=== PATIENT | male | born 1945 | race Caucasian/White ===

== ENCOUNTER 2018-07-01 22:43 | Emergency (ER) | payer OTHER, BC ==
--- OUTSIDE RECORDS SUMMARY | 2018-07-01 22:45 | XMS REPORT ---
:1945 [facility] Address [address] [place] [address] Dr. Clements [address] [place] [id number] Care Team Providers Name Role Phone EDILBERTO HUGGINS Unavailable Unavailable Problems This patient has no known problems. Allergies, Adverse Reactions, Alerts This patient has no known allergies or adverse reactions. Medications This patient has no known medications. Results Test Description Test Time Test Comments Text Results Atomic Results Result Comments NEEDLE EMG, 2 2018-01-18 INTRAOPERATIVE MONITORING REPORT EXTREMITY 16:14:00 Patient Name: Toro Rodriguez [facility] Surgery Date: 01/15/18 [place] Pro: [id number] Monitoring began at 11:40 a.m and ended at 2:00p.m. Surgeon: Edilberto Huggins M.D. Examining Physician : Sonido Milan M.D. Monitoring Technologist: SOL Gonzales Procedure: Laminectomy and Placement of Spinal Cord Stimulator Stimulation Parameters: Ulnar nerves individually stimulated at the wristRate 4.7Hz, Intensity 35mA, Duration 0.3msPosterior Tibial nerves individually stimulated at the ankleRate 4.7Hz, Intensity 70mA, Duration 0.3msFilters 30-500Hz, Notch Off Recording Parameters: CV, CP3, CP4, CPz, and FPzTcMEPs of bilateral APB-ADM and Tibialis Anterior, Adductor Hallicus muscle groupsFree running EMG of the External Obliques (T7-T12, Vastus Lateralis (L2-L4), Tibialis Anterior L4-L5, LateralGastroc (L5-S2), Abductor Hallicus (S1-S2) muscle groupsFree-running EEG recorded with bipolar derivation, using modified International 10/20 placements: C3-FPZ,C4-FPZ Description : Intraoperative neurophysiological monitoring was performed using a combination of upperand lower extremity somatosensory evoked potentials, TcMEPs, and Free-running EMG and EEGs. Areal-time connection with the examining neurologist was established and maintained throughout theoperative procedure by the monitoring technologist. Upper extremity somatosensory evoked potentialswere recorded centrally at the cervical and corticals following ulnar nerve stimulation. Lower extremitysomatosensory evoked potentials were recorded centrally at the cervical and cortical levels followingposterior tibial nerve stimulation at the ankle. Ssep baselines were established and monitored throughoutthe duration of the procedure. At closing, responses were judged to be essentially unchanged from thoseof post-positioning baselines. TcMEP responses were obtained post-positioning and Upper extremities andlower extremities were present at baseline. TcMEP responses were present in all extremities for theremainder of the case and at closing, surgeon aware. Free-running EMG was quiet throughout and EEGremained symmetrical throughout the procedure with no focal changes noted to occur. Conclusion : These results suggest the absence of untoward, secondary effects on anterior and posteriorcolumn function as a consequence of this surgical procedure. Sonido Milan M.D., FACNS, FAAN, FAESG89.4, M54.16 [facility] IN 2018-01-15 Reason for FINAL REPORT OR/30 MINUTE 14:19:00 exam:->Implant Fluoroscopy 1 view intraoperative INCREMENTS spinal cord 01/15/2018 2:13 PM CLINICAL HISTORY: stimulator, Instrument localization COMPARISON: thoracic None available IMPRESSION: Please laminectomy correlate imaging report findings with the procedure note prepared by Dr. Huggins, as an intra-procedure imaging consultation was not requested. Reported fluoroscopy time: 29.9 seconds. Signed: John Ortiz MDReport Verified Date/Time: 01/15/2018 14:19:13 Reading Location: [address] Consult Reading Room -1 ANTIGEN WITH HIV-1/2 ANTIBODY 2018-01-11 09:49:00 Test Item Value Reference Range Comments HIV-1 ANTIGEN WITH HIV 1\T\2 ANTIBODY (2) (BEAKER) (test Nonreactive Nonreactive ddjy=5501) [id number] 09:32:00 Test Item Value Reference Range Comments GLUCOSE RANDOM (BEAKER) (test yuhz=367) 126 mg/dL 70-105 BASIC METABOLIC [id number] 09:32:00 Test Item Value Reference Range Comments SODIUM (BEAKER) (test 142 meq/L 136-145 skql=312) POTASSIUM (BEAKER) (test 4.1 meq/L 3.5-5.1 bsvn=056) CHLORIDE (BEAKER) (test 106 meq/L 98-107 uktg=933) CO2 (BEAKER) (test 28 meq/L 22-29 rxxn=367) BLOOD UREA NITROGEN 21 mg/dL 7-21 (BEAKER) (test xeyk=903) CREATININE (BEAKER) (test 1.06 mg/dL 0.57-1.25 gbls=457) GLUCOSE RANDOM (BEAKER) 126 mg/dL 70-105 (test mnwy=930) CALCIUM (BEAKER) (test 9.5 mg/dL 8.4-10.2 leeu=384) EGFR (BEAKER) (test 68 mL/min/1.73 sq m ESTIMATED GFR IS NOT iops=3279) ACCURATE CREATININE CLEARANCE IN PREDICTING GLOMERULAR FILTRATION RATE. ESTIMATED GFR IS NOT APPLICABLE FOR DIALYSIS PATIENTS. PROTHROMBIN TIME/[id number] 09:29:00 Test Item Value Reference Range Comments PROTIME (BEAKER) (test mrbm=414) 13.8 seconds 11.7-14.7 INR (BEAKER) (test otzm=745) 1.1 <=5.9 RECOMMENDED COUMADIN/WARFARIN INR THERAPY RANGESSTANDARD DOSE: 2.0 - 3.0 Includes: PROPHYLAXIS forvenous thrombosis, systemic embolization; TREATMENT for venous thrombosis and/or pulmonary embolus.HIGH RISK: Target INR is 2.5-3.5 for patients with mechanical heart valves.CBC W/PLT COUNT & AUTO [id number] 09:19:00 Test Item Value Reference Range Comments WHITE BLOOD CELL COUNT (BEAKER) (test kdqu=609) 10.1 K/ L 3.5-10.5 RED BLOOD CELL COUNT (BEAKER) (test vtwj=191) 4.87 M/ L 4.63-6.08 HEMOGLOBIN (BEAKER) (test tbdb=961) 14.6 GM/DL 13.7-17.5 HEMATOCRIT (BEAKER) (test yjob=169) 46.1 % 40.1-51.0 MEAN CORPUSCULAR VOLUME (BEAKER) (test khdo=808) 94.7 fL 79.0-92.2 MEAN CORPUSCULAR HEMOGLOBIN (BEAKER) (test 30.0 pg 25.7-32.2 xzik=119) MEAN CORPUSCULAR HEMOGLOBIN CONC (BEAKER) (test 31.7 GM/DL 32.3-36.5 uldu=247) RED CELL DISTRIBUTION WIDTH (BEAKER) (test 12.7 % 11.6-14.4 quky=533) PLATELET COUNT (BEAKER) (test duie=384) 286 K/CU MM 150-450 MEAN PLATELET VOLUME (BEAKER) (test hasf=806) 10.1 fL 9.4-12.4 NUCLEATED RED BLOOD CELLS (BEAKER) (test 0 /100 WBC 0-0 bwsc=174) NEUTROPHILS RELATIVE PERCENT (BEAKER) (test 61 % hrpd=866) LYMPHOCYTES RELATIVE PERCENT (BEAKER) (test 27 % kxjb=783) MONOCYTES RELATIVE PERCENT (BEAKER) (test 9 % oltr=223) EOSINOPHILS RELATIVE PERCENT (BEAKER) (test 3 % gsvz=704) BASOPHILS RELATIVE PERCENT (BEAKER) (test 1 % vfde=456) NEUTROPHILS ABSOLUTE COUNT (BEAKER) (test 6.16 K/ L 1.78-5.38 ugdk=652) LYMPHOCYTES ABSOLUTE COUNT (BEAKER) (test 2.73 K/ L 1.32-3.57 urxx=170) MONOCYTES ABSOLUTE COUNT (BEAKER) (test 0.89 K/ L 0.30-0.82 rrab=264) EOSINOPHILS ABSOLUTE COUNT (BEAKER) (test 0.25 K/ L 0.04-0.54 aujp=303) BASOPHILS ABSOLUTE COUNT (BEAKER) (test 0.07 K/ L 0.01-0.08 typp=500) IMMATURE GRANULOCYTES-RELATIVE PERCENT (BEAKER) 0 % 0-1 (test qzhi=6495)
--- OUTSIDE RECORDS SUMMARY | 2018-07-01 22:45 | XMS REPORT | Continuity of Care Document ---
:1945 Author Organization Interface Problems Problem Status Onset Date Classification Date Comments Source Reported Medications Medication Details Route Status Patient Ordering Order Source Instructions Provider Date Allergies, Adverse Reactions, Alerts Substance Category Reaction Severity Reaction Status Date Comments Source type Reported Immunizations Immunization Date Given Site Status Last Updated Comments Source Results Order Results Value Reference Date Interpretation Comments Source Name Range Vital Signs Vital Sign Value Date Comments Source Encounters Location Location Encounter Encounter Reason Attending ADM DC Status Source Details Type Number For Provider Date Date Visit Outpatient [id number] [place] 06/02 [facility] Outpatient [id number] [place]KA 11/30 [facility] Procedures Procedure Code Date Perfomer Comments Source
--- OUTSIDE RECORDS SUMMARY | 2018-07-01 22:45 | XMS REPORT | Clinical Summary ---
:1945 Author Organization [facility] Address [address] [place] [id number] Phone Care Team Providers Name Role Phone Unavailable Primary Care Provider Unavailable Allergies Active Allergy Reactions Severity Noted Date Comments Adhesive Tape Other (See Comments) 01/08/2018 BLISTERS OK WITH PAPER TAPE Latex Other (See Comments) 01/08/2018 BLISTERS Current Medications Prescription Sig. Disp. Refills Start Date End Date Status fentaNYL (DURAGESIC) 100 Place 1 patch onto Active mcg/hr patch the skin every third day. fentaNYL (DURAGESIC) 25 Place 1 patch onto Active mcg/hr patch the skin every third day. gabapentin (NEURONTIN) Take 600 mg by Active 600 MG tablet mouth nightly . metoprolol (TOPROL-XL) 25 Take 25 mg by mouth Active MG 24 hr tablet nightly . atorvastatin (LIPITOR) 20 Take 20 mg by mouth Active MG tablet nightly . amLODIPine (NORVASC) 10 Take 10 mg by mouth Active MG tablet nightly . omeprazole (PRILOSEC) 40 Take 40 mg by mouth Active MG capsule nightly . aspirin 81 MG EC tablet Take 81 mg by mouth Active nightly . Active Problems Problem Noted Date Lumbar neuritis 01/15/2018 Essential hypertension 01/15/2018 S/P insertion of spinal cord stimulator 01/15/2018 Resolved Problems Problem Noted Date Resolved Date Chronic pain syndrome 01/15/2018 01/15/2018 Encounters Date Type Specialty Care Team Description 01/15/2018 - Hospital Encounter General Internal Nitin Huggins Chronic pain 01/16/2018 Medicine MD Giovanni syndrome;Essential hypertension;Lumbar neuritis;S/P insertion of spinal cord stimulator 01/15/2018 Procedure Pass 01/15/2018 Surgery Nitin Huggins LAMINECTOMY,INSERTION MD Giovanni NEUROSTIMULATOR ELECTRODES 01/14/2018 Anesthesia Event Laura Gauthier MD 01/11/2018 Hospital Encounter Cardiology Nitin Huggins MD 01/11/2018 Hospital Encounter Pre-Admission Nitin Huggins MD 01/11/2018 Hospital Encounter Pre-Admission Nitin Huggins MD 01/10/2018 Orders Only Nitin Huggins MD 01/08/2018 Hospital Encounter Pre-Admission Testing after 06/30/2017 Social History Tobacco Use Types Packs/Day Years Used Date Former Smoker Quit: 2016 Smokeless Tobacco: Never Used Alcohol Use Drinks/Week oz/Week Comments No Sex Assigned at Date Recorded Not on file Last Filed Vital Signs Vital Sign Reading Time Taken Blood Pressure 121/56 01/16/2018 7:30 AM CDT Pulse 63 01/16/2018 7:30 AM CDT Temperature 36.2 C (97.1 F) 01/16/2018 7:30 AM CDT Respiratory Rate 17 01/16/2018 7:30 AM CDT Oxygen Saturation 97% 01/16/2018 7:30 AM CDT Inhaled Oxygen Concentration - - Weight 75 kg (165 lb 6.4 oz) 01/15/2018 6:58 AM CDT Height 172.7 cm (5' 8") 01/15/2018 6:58 AM CDT Body Mass Index 25.15 01/15/2018 6:58 AM CDT Plan of Treatment Not on file Implants Implanted Type 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 Device Expiration Model / Identifier Date Serial / Lot Replaced By [facility] Full Strlprep 10ml [id number] - [id number] Cement/F N/A: MAHER: BIOSCI 06/02/2019 [id number] / Implanted: Qty: 1 on 01/15/2018 by Nitin Huggins MD iller/Ad Back / hesive [id number] Pump Lead Penta 3mm 60cm [id number] - [id number] Pain N/A: ST JARRETT 11/16/2019 [id number] / Implanted: Qty: 1 on 01/15/2018 by Nitin Huggins MD Mgmt/Sti Back MED: NEUROMODULAT [id number] / mulator ION Stim Neuro Proclaim 7 Elite - [id number] Pain N/A: [facility] JARRETT 11/05/2019 [id number] / Implanted: Qty: 1 on 01/15/2018 by Nitin Huggins MD Mgmt/Sti Back MED: NEUROMODULAT [id number] / mulator ION Procedures Procedure Name Priority Date/Time Associated Diagnosis Comments PROCEDURE W/ 01/15/2018 10:50 AM Chronic pain syndrome INTRAOPERATIVE CDT NEUROMONITORING Special Needs (C-ARM, NEURO- MONITORING: SSEP, NEUROSCOPE, [facility] JARRETT, ELIDA PARTS LISTER) PROCEDURE W/ C-ARM 01/15/2018 10:50 AM CDT Chronic pain syndrome Special Needs (C-ARM, NEURO- MONITORING: SSEP, NEUROSCOPE, [facility] JAR[facility]TT, ELIDA PARTS LISTER) INSERTION,SPINAL CORD 01/15/2018 10:50 AM CDT Chronic pain syndrome NEUROSTIMULATOR Special Needs (C-ARM, NEURO- MONITORING: SSEP, NEUROSCOPE, [facility] JARRETT, ELIDA PARTS LISTER) LAMINECTOMY,INSERTION 01/15/2018 10:50 AM CDT Chronic pain syndrome NEUROSTIMULATOR ELECTRODES Special Needs (C-ARM, NEURO- MONITORING: SSEP, NEUROSCOPE, [facility] JARRETT, ELIDA PARTS LISTER) after 06/30/2017 Results RHYTHM STRIP - SCAN (01/18/2018 1:20 PM)NEEDLE EMG, 2 EXTREMITY (01/15/2018 2: 00 PM) Specimen Performing Laboratory GE RIS Narrative INTRAOPERATIVE MONITORING REPORT Patient Name: Cas Denny [facility] Surgery Date: 01/15/18 [place] Pro: [id number] Monitoring began at 11:40 a.m and ended at 2:00p.m. Surgeon: Nitin Huggins M.D. Examining Physician : Sonido Milan M.D. Monitoring Technologist: SOL Gonzales Procedure: Laminectomy and Placement of Spinal Cord Stimulator Stimulation Parameters: Ulnar nerves individually stimulated at the wrist Rate 4.7Hz, Intensity 35mA, Duration 0.3ms Posterior Tibial nerves individually stimulated at the ankle Rate 4.7Hz, Intensity 70mA, Duration 0.3ms Filters 30-500Hz, Notch Off Recording Parameters: CV, CP3, CP4, CPz, and FPz TcMEPs of bilateral APB-ADM and Tibialis Anterior, Adductor Hallicus muscle groups Free running EMG of the External Obliques (T7-T12, Vastus Lateralis (L2-L4), Tibialis Anterior L4-L5, Lateral Gastroc (L5-S2), Abductor Hallicus (S1-S2) muscle groups Free-running EEG recorded with bipolar derivation, using modified International 10/20 placements: C3-FPZ, C4-FPZ Description : Intraoperative neurophysiological monitoring was performed using a combination of upper and lower extremity somatosensory evoked potentials, TcMEPs, and Free-running EMG and EEGs. A real-time connection with the examining neurologist was established and maintained throughout the operative procedure by the monitoring technologist. Upper extremity somatosensory evoked potentials were recorded centrally at the cervical and corticals following ulnar nerve stimulation. Lower extremity somatosensory evoked potentials were recorded centrally at the cervical and cortical levels following posterior tibial nerve stimulation at the ankle. Ssep baselines were established and monitored throughout the duration of the procedure. At closing, responses were judged to be essentially unchanged from those of post-positioning baselines. TcMEP responses were obtained post-positioning and Upper extremities and lower extremities were present at baseline. TcMEP responses were present in all extremities for the remainder of the case and at closing, surgeon aware. Free-running EMG was quiet throughout and EEG remained symmetrical throughout the procedure with no focal changes noted to occur. Conclusion : These results suggest the absence of untoward, secondary effects on anterior and posterior column function as a consequence of this surgical procedure. Sonido Milan M.D., LINDA, SANDYN, FAES G89.4, M54.16 Procedure Note Interface, External Ris In - 01/18/2018 4:14 PM CDT INTRAOPERATIVE MONITORING REPORT Patient Name: Cas Denny [facility] Surgery Date: 01/15/18 [place] Pro: [id number] Monitoring began at 11:40 a.m and ended at 2:00p.m. Surgeon: Nitin Huggins M.D. Examining Physician : Sonido Milan M.D. Monitoring Technologist: SOL Gonzales Procedure: Laminectomy and Placement of Spinal Cord Stimulator Stimulation Parameters: Ulnar nerves individually stimulated at the wrist Rate 4.7Hz, Intensity 35mA, Duration 0.3ms Posterior Tibial nerves individually stimulated at the ankle Rate 4.7Hz, Intensity 70mA, Duration 0.3ms Filters 30-500Hz, Notch Off Recording Parameters: CV, CP3, CP4, CPz, and FPz TcMEPs of bilateral APB-ADM and Tibialis Anterior, Adductor Hallicus muscle groups Free running EMG of the External Obliques (T7-T12, Vastus Lateralis (L2-L4), Tibialis Anterior L4-L5, Lateral Gastroc (L5-S2), Abductor Hallicus (S1-S2) muscle groups Free-running EEG recorded with bipolar derivation, using modified International 10/20 placements: C3-FPZ, C4-FPZ Description : Intraoperative neurophysiological monitoring was performed using a combination of upper and lower extremity somatosensory evoked potentials, TcMEPs, and Free-running EMG and EEGs. A real-time connection with the examining neurologist was established and maintained throughout the operative procedure by the monitoring technologist. Upper extremity somatosensory evoked potentials were recorded centrally at the cervical and corticals following ulnar nerve stimulation. Lower extremity somatosensory evoked potentials were recorded centrally at the cervical and cortical levels following posterior tibial nerve stimulation at the ankle. Ssep baselines were established and monitored throughout the duration of the procedure. At closing, responses were judged to be essentially unchanged from those of post-positioning baselines. TcMEP responses were obtained post-positioning and Upper extremities and lower extremities were present at baseline. TcMEP responses were present in all extremities for the remainder of the case and at closing, surgeon aware. Free-running EMG was quiet throughout and EEG remained symmetrical throughout the procedure with no focal changes noted to occur. Conclusion : These results suggest the absence of untoward, secondary effects on anterior and posterior column function as a consequence of this surgical procedure. Sonido Milan M.D., FACNS, FAAN, FAES G89.4, M54.16 radiation protection technician in or 30 minute increments (01/15/2018 1:15 PM) Specimen Performing Laboratory GE RIS Narrative FINAL REPORT Fluoroscopy 1 view intraoperative 01/15/2018 2:13 PM CLINICAL HISTORY: Instrument localization COMPARISON: None available IMPRESSION: Please correlate imaging report findings with the procedure note prepared by Dr. Huggins, as an intra-procedure imaging consultation was not requested. Reported fluoroscopy time: 29.9 seconds. Signed: John Ortiz MD Report Verified Date/Time:01/15/2018 14:19:13 Reading Location: [address] Consult Reading Room Procedure Note Interface, External Ris In - 01/15/2018 2:22 PM CDT FINAL REPORT Fluoroscopy 1 view intraoperative 01/15/2018 2:13 PM CLINICAL HISTORY: Instrument localization COMPARISON: None available IMPRESSION: Please correlate imaging report findings with the procedure note prepared by Dr. Huggins, as an intra-procedure imaging consultation was not requested. Reported fluoroscopy time: 29.9 seconds. Signed: John Ortiz MD Report Verified Date/Time: 01/15/2018 14:19:13 Reading Location: [facility] Consult Reading Room SFUSION SERVICE REPORT - SCAN (01/12/2018 5:56 PM)ECG 12 lead (01/11/2018 8:28 AM) Specimen Performing Laboratory [employer] MUSE Narrative Ventricular Rate 66 BPM Atrial Rate 66 BPM P-R Interval 148 ms QRS Duration 72 ms Q-T Interval 392 ms QTC Calculation(Bazett) 410 ms P Alviso 29 degrees R Alviso 14 degrees T Alviso 37 degrees Normal sinus rhythm Nonspecific T wave abnormality Abnormal ECG No previous ECGs available Confirmed by MD POPPY, IHAB ([id number]) on 01/11/2018 9:43:25 PM Procedure Note Interface, External Ris In - 01/11/2018 9:43 PM CDT Ventricular Rate 66 BPM Atrial Rate 66 BPM P-R Interval 148 ms QRS Duration 72 ms Q-T Interval 392 ms QTC Calculation(Bazett) 410 ms P Alviso 29 degrees R Alviso 14 degrees T Alviso 37 degrees Normal sinus rhythm Nonspecific T wave abnormality Abnormal ECG No previous ECGs available Confirmed by MD POPPY, IHAB ([id number]) on 01/11/2018 9:43:25 PM Type and screen, automated (01/11/2018 8:26 AM) Component Value Ref Range ABO/RH AUTOMATED (BEAKER) A NEGATIVE Ab Scrn NEGATIVE Specimen Performing Laboratory Blood [facility] [address] [address] HIV-1 Antigen with HIV-1/2 Antibody (01/11/2018 8:26 AM) Component Value Ref Range HIV-1 Antigen with HIV 1&2 Antibody Nonreactive Nonreactive Specimen Performing Laboratory Blood [address] [address] CBC with platelet count + automated diff (01/11/2018 8:26 AM) Component Value Ref Range WBC 10.1 3.5 - 10.5 K/L RBC 4.87 4.63 - 6.08 M/L Hemoglobin 14.6 13.7 - 17.5 GM/DL Hematocrit 46.1 40.1 - 51.0 % MCV 94.7 (H) 79.0 - 92.2 fL MCH 30.0 25.7 - 32.2 pg MCHC 31.7 (L) 32.3 - 36.5 GM/DL RDW 12.7 11.6 - 14.4 % Platelets 286 150 - 450 K/CU MM MPV 10.1 9.4 - 12.4 fL nRBC 0 0 - 0 /100 WBC % Neutros 61 % % Lymphs 27 % % Monos 9 % % Eos 3 % % Baso 1 % # Neutros 6.16 (H) 1.78 - 5.38 K/L # Lymphs 2.73 1.32 - 3.57 K/L # Monos 0.89 (H) 0.30 - 0.82 K/L # Eos 0.25 0.04 - 0.54 K/L # Baso 0.07 0.01 - 0.08 K/L Immature Granulocytes-Relative 0 0 - 1 % Specimen Performing Laboratory Blood [address] [address] Prothrombin time/INR (01/11/2018 8:26 AM) Component Value Ref Range Protime 13.8 11.7 - 14.7 seconds INR 1.1 <=5.9 Specimen Performing Laboratory Blood [address] [address] Narrative RECOMMENDED COUMADIN/WARFARIN INR THERAPY RANGES STANDARD DOSE: 2.0 - 3.0 Includes: PROPHYLAXIS for venous thrombosis, systemic embolization; TREATMENT for venous thrombosis and/or pulmonary embolus. HIGH RISK: Target INR is 2.5-3.5 for patients with mechanical heart valves. CBC w/platelet count and auto differential (01/11/2018 8:26 AM) Specimen Performing Laboratory Blood Narrative The following orders were created for panel order CBC w/platelet count and auto differential. Procedure Abnormality Status --------- ------ CBC with platelet count ...[[id number]]AbnormalFinal result Please view results for these tests on the individual orders. Glucose (01/11/2018 8:26 AM) Component Value Ref Range Glucose 126 (H) 70 - 105 mg/dL Specimen Performing Laboratory Blood [address] [address] Basic Metabolic Panel (01/11/2018 8:26 AM) Component Value Ref Range Sodium 142 136 - 145 meq/L Potassium 4.1 3.5 - 5.1 meq/L Chloride 106 98 - 107 meq/L CO2 28 22 - 29 meq/L BUN 21 7 - 21 mg/dL Creatinine 1.06 0.57 - 1.25 mg/dL Glucose 126 (H) 70 - 105 mg/dL Calcium 9.5 8.4 - 10.2 mg/dL EGFR 68Comment: ESTIMATED GFR IS NOT ACCURATE mL/min/1.73 sq m CREATININE CLEARANCE IN PREDICTING GLOMERULAR FILTRATION RATE. ESTIMATED GFR IS NOT APPLICABLE FOR DIALYSIS PATIENTS. Specimen Performing Laboratory Blood [address] [address] after 06/30/2017
[2018-07-01] MEDS ORDERED: ONDANSETRON 4 MG/2 ML VIAL ONE (23:54)
[2018-07-01] MEDS ORDERED: FENTANYL CITR 100 MCG/2 ML ONE (23:54)
[2018-07-02] LABS: Absolute Lymphocytes (CBC) 1.9 K/uL (0.7-4.9); Absolute Monocytes 0.8 K/uL (0.1-1.3); Absolute Neutrophil 9.4 K/uL (1.8-8.0); Basophils % 1.1 % (0-1.3); Eosinophils % 0.8 % (0-4.4); Hematocrit 45.3 % (39.6-49.0); Lymphocytes % 15.2 % (15.3-44.8); MCH 29.2 pg (27.0-35.0); MCV 88.3 fL (80-100); MPV 8.5 fL (7.6-11.3); Monocytes % 6.3 % (3.3-12.3); RBC Red Blood Cell Count 5.14 M/uL (4.33-5.43)
[2018-07-02 00:04] LABS: Protime INR 1.03
[2018-07-02] MEDS ORDERED: CEFTRIAXONE/SWI 1gm 1 GM/10 ML SYR ONE (00:04)
[2018-07-02] MEDS ORDERED: NA CHLORIDE 0.9% 1,000 ML ONE (00:04)
[2018-07-02 00:28] LABS: Bilirubin Total 0.5 mg/dL (0.2-1.0); Potassium 4.3 mmol/L (3.5-5.1); Protein, Total 8.5 g/dL (6.4-8.2)
[2018-07-02 00:39] LABS: Urine Blood 2+ (NEG); Urine Glucose NEGATIVE (NEG); Urine Protein 2+ (NEG); Urine Specific Gravity >1.030 (1.005-1.030); Urine pH 5.5 (5.0-7.0)
[2018-07-02] MEDS ORDERED: HYDROCODONE/APAP 10/325 TAB ONE (01:24)
[2018-07-02] MEDS ORDERED: CIPROFLOXACIN HCL 500 MG TAB ONE (01:24)
--- NOTE | 2018-07-02 01:55 | ER ---
Nurse's Notes [facility] Name: Cas Denny Age: 72 yrs Sex: Male : 1945 Arrival Date: 07/01/2018 Time: 22:44 Bed 8 Private MD: Diagnosis: Dysuria Presentation: 07/01 23:07 Presenting complaint: Patient states: bladder dilation sx yesterday by Dr. Roman. pt ak1 c/o increased pain to bladder and penis. pt stated blood in urine. Transition of care: patient was not received from another setting of care. Onset of symptoms was July 01, 2018. Risk Assessment: Do you want to hurt yourself or someone else? Patient reports no desire to harm self or others. Initial Sepsis Screen: Does the patient meet any 2 criteria? No. Patient's initial sepsis screen is negative. Does the patient have a suspected source of infection? No. Patient's initial sepsis screen is negative. 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 23:07 Method Of Arrival: Wheelchair ak1 23:07 Acuity: MIRZA 3 ak1 Triage Assessment: 23:11 General: Appears uncomfortable, Behavior is calm, cooperative. Pain: Complains of pain ak1 in pelvis. Historical: - Allergies: 23:11 Tape; ak1 - Home Meds: 23:11 gabapentin 600 mg oral tab [Active]; Medford 10-325 mg Oral tab 1 tab PRN [Active]; ak1 atorvastatin 20 mg oral tab 1 tab once daily [Active]; fentanyl 100 mcg/hr Topical pt72 1 patch 40 hrs [Active]; omeprazole 40 mg Oral cpDR 1 cap once daily [Active]; - PMHx: 23:11 Back pain; Hypertension; Prostate Cancer; ak1 - PSHx: 23:11 neck surgery; back surgery; Appendectomy; Cholecystectomy; prostatectomy; Hernia ak1 repair; bladder dilation; DVR stimulator; heart stint; - Immunization history:: Adult Immunizations unknown. - Social history:: Smoking status: Patient/guardian denies using tobacco. - Ebola Screening: : No symptoms or risks identified at this time. - Family history:: not pertinent. Screenin:12 Abuse screen: Denies threats or abuse. Denies injuries from another. Nutritional ak1 screening: No deficits noted. Tuberculosis screening: No symptoms or risk factors identified. Fall Risk None identified. Assessment: 07/02 00:21 Reassessment: pt with catheter in place s/p sx by Dr. Roman. ak1 00:33 Reassessment: pt bladder scan with 0mL in bladder. ak1 01:46 Reassessment: No changes from previously documented assessment. Patient is alert, ak1 oriented x 3, equal unlabored respirations, skin warm/dry/pink. pt continues to c/o pain, provider notified. will continue to monitor. Vital Signs: 07/01 23:11 BP 135 / 64; Pulse 103; Resp 20; Temp 98.7(O); Pulse Ox 99% on R/A; Weight 73.48 kg ak1 (R); Height 5 ft. 8 in. (172.72 cm) (R); Pain 06/16; 07/02 00:32 BP 143 / 65; Pulse 89; Resp 20; Pulse Ox 97% on R/A; ak1 07/01 23:11 Body Mass Index 24.63 (73.48 kg, 172.72 cm) ak1 ED Course: 07/01 22:44 Patient arrived in ED. ds1 22:57 Indio Kaur, RN is Primary Nurse. ao 23:08 Triage completed. ak1 23:10 Naif Batista MD is Attending Physician. paige 23:11 Arm band placed on Patient placed in an exam room, on a stretcher, on pulse oximetry, ak1 Patient notified of wait time. 23:13 Patient has correct armband on for positive identification. Placed in gown. Bed in low ak1 position. Side rails up X 1. Pulse ox on. NIBP on. 23:48 Radiology exam delayed due to Currently with ED nurse. kw1 23:52 Inserted saline lock: 20 gauge in left antecubital area, using aseptic technique. ak1 ,using aseptic technique. placed by Indio Blood collected. 23:[address] via wheelchair. kw1 07/02 00:02 CT Stone Protocol In Process Unspecified. EDMS 00:03 CT completed. Patient tolerated procedure well. Patient moved back from CT. kw1 01:55 aJcob Roman MD is Referral Physician. paige 02:17 No provider procedures requiring assistance completed. IV discontinued, intact, ak1 bleeding controlled, No redness/swelling at site. Pressure dressing applied. Administered Medications: 07/01 23:50 Drug: Zofran 4 mg Route: IVP; Site: left antecubital; ak1 07/02 00:22 Follow up: Response: No adverse reaction ak1 07/01 23:51 Drug: fentaNYL (PF) 25 mcg Route: IVP; Site: left antecubital; ak1 07/02 00:22 Follow up: Response: No adverse reaction ak1 00:22 Follow up: Response: No adverse reaction; Pain is unchanged, physician notified ak1 07/01 23:51 Drug: fentaNYL (PF) 25 mcg Route: IVP; Site: left antecubital; ak1 07/02 00:23 Follow up: Response: No adverse reaction; Pain is unchanged, physician notified ak1 00:22 Drug: NS 0.9% 1000 ml Route: IV; Rate: 75 ml/hr; Site: left antecubital; ak1 00:22 Drug: Rocephin - (cefTRIAXone) 1 grams Route: IVPB; Infused Over: 30 mins; Site: left ak1 antecubital; 02:29 Follow up: IV Status: Completed infusion ak1 00:32 Drug: fentaNYL (PF) 50 mcg Route: IVP; Site: left antecubital; ak1 00:55 Follow up: Response: No adverse reaction ak1 01:25 Drug: Medford 10 mg-325 mg 1 tabs Route: PO; ak1 02:29 Follow up: Response: No adverse reaction ak1 01:25 Drug: Cipro 500 mg Route: PO; ak1 02:28 Follow up: Response: No adverse reaction ak1 Outcome: 01:55 Discharge ordered by . paige 02:17 Discharged to home ambulatory, with family. ak1 02:17 Condition: good 02:17 Discharge instructions given to patient, family, Instructed on discharge instructions, follow up and referral plans. no drinking with medication, no driving heavy equipment, medication usage, Demonstrated understanding of instructions, follow-up care, medications, Prescriptions given X 3. 02:28 Patient left the ED. ak1 Signatures: Dispatcher [employer] EDNaif Foley MD MD cha Sanford, Demi ds1 Isabela Gómez RN RN ak1 Indio Kaur RN RN ao Kd, Dania kw1
--- NOTE | 2018-07-02 01:55 | EDPHYS ---
Physician Documentation [facility] Name: Cas Denny Age: 72 yrs Sex: Male : 1945 Arrival Date: 07/01/2018 Time: 22:44 Bed 8 Private MD: KANIKA Physician Naif Batista HPI: 07/01 23:34 This 72 yrs old Male presents to ER via Wheelchair with complaints of Problem paige With Urinary Catheter, Blood In Catheter. 23:34 The patient presents with a Hernández catheter problem, draining bloody urine, urinary paige symptoms, unable to void. Onset: The symptoms/episode began/occurred 2 day(s) ago. Modifying factors: The symptoms are alleviated by nothing, the symptoms are aggravated by nothing. Associated signs and symptoms: The patient has no apparent associated signs or symptoms. Severity of symptoms: At their worst the symptoms were. The patient has experienced similar episodes in the past, a few times. The patient has been recently seen by a physician: Historical: - Allergies: 23:11 Tape; ak1 - Home Meds: 23:11 gabapentin 600 mg oral tab [Active]; Irvine 10-325 mg Oral tab 1 tab PRN [Active]; ak1 atorvastatin 20 mg oral tab 1 tab once daily [Active]; fentanyl 100 mcg/hr Topical pt72 1 patch 40 hrs [Active]; omeprazole 40 mg Oral cpDR 1 cap once daily [Active]; - PMHx: 23:11 Back pain; Hypertension; Prostate Cancer; ak1 - PSHx: 23:11 neck surgery; back surgery; Appendectomy; Cholecystectomy; prostatectomy; Hernia ak1 repair; bladder dilation; DVR stimulator; heart stint; - Immunization history:: Adult Immunizations unknown. - Social history:: Smoking status: Patient/guardian denies using tobacco. - Ebola Screening: : No symptoms or risks identified at this time. - Family history:: not pertinent. ROS: 23:34 Constitutional: Negative for fever, chills, and weight loss, Eyes: Negative for injury, paige pain, redness, and discharge, ENT: Negative for injury, pain, and discharge, Neck: Negative for injury, pain, and swelling, Cardiovascular: Negative for chest pain, palpitations, and edema, Respiratory: Negative for shortness of breath, cough, wheezing, and pleuritic chest pain, Abdomen/GI: Negative for abdominal pain, nausea, vomiting, diarrhea, and constipation, Back: Negative for injury and pain, MS/Extremity: Negative for injury and deformity, Skin: Negative for injury, rash, and discoloration, Neuro: Negative for headache, weakness, numbness, tingling, and seizure, Psych: Negative for depression, anxiety, suicide ideation, homicidal ideation, and hallucinations, Allergy/Immunology: Negative for hives, rash, and allergies, Endocrine: Negative for neck swelling, polydipsia, polyuria, polyphagia, and marked weight changes, Hematologic/Lymphatic: Negative for swollen nodes, abnormal bleeding, and unusual bruising. 23:34 : Positive for urinary frequency, small amounts, hematuria, burning with urination. Exam: 23:34 Constitutional: This is a well developed, well nourished patient who is awake, alert, paige and in no acute distress. Head/Face: Normocephalic, atraumatic. Eyes: Pupils equal round and reactive to light, extra-ocular motions intact. Lids and lashes normal. Conjunctiva and sclera are non-icteric and not injected. Cornea within normal limits. Periorbital areas with no swelling, redness, or edema. ENT: Nares patent. No nasal discharge, no septal abnormalities noted. Tympanic membranes are normal and external auditory canals are clear. Oropharynx with no redness, swelling, or masses, exudates, or evidence of obstruction, uvula midline. Mucous membranes moist. Neck: Trachea midline, no thyromegaly or masses palpated, and no cervical lymphadenopathy. Supple, full range of motion without nuchal rigidity, or vertebral point tenderness. No Meningismus. Chest/axilla: Normal chest wall appearance and motion. Nontender with no deformity. No lesions are appreciated. Cardiovascular: Regular rate and rhythm with a normal S1 and S2. No gallops, murmurs, or rubs. Normal PMI, no JVD. No pulse deficits. Respiratory: Lungs have equal breath sounds bilaterally, clear to auscultation and percussion. No rales, rhonchi or wheezes noted. No increased work of breathing, no retractions or nasal flaring. Back: No spinal tenderness. No costovertebral tenderness. Full range of motion. Skin: Warm, dry with normal turgor. Normal color with no rashes, no lesions, and no evidence of cellulitis. MS/ Extremity: Pulses equal, no cyanosis. Neurovascular intact. Full, normal range of motion. Neuro: Awake and alert, GCS 15, oriented to person, place, time, and situation. Cranial nerves II-XII grossly intact. Motor strength 5/5 in all extremities. Sensory grossly intact. Cerebellar exam normal. Normal gait. Psych: Awake, alert, with orientation to person, place and time. Behavior, mood, and affect are within normal limits. 23:34 Abdomen/GI: Inspection: abdomen appears normal, Bowel sounds: normal, Palpation: mild abdominal tenderness, moderate abdominal tenderness, in the suprapubic area, right lower quadrant and left lower quadrant. Vital Signs: 23:11 BP 135 / 64; Pulse 103; Resp 20; Temp 98.7(O); Pulse Ox 99% on R/A; Weight 73.48 kg ak1 (R); Height 5 ft. 8 in. (172.72 cm) (R); Pain 06/16; 07/02 00:32 BP 143 / 65; Pulse 89; Resp 20; Pulse Ox 97% on R/A; ak1 07/01 23:11 Body Mass Index 24.63 (73.48 kg, 172.72 cm) ak1 MDM: 07/01 23:10 Patient medically screened. [facility] 23:37 Data reviewed: vital signs, nurses notes, lab test result(s), radiologic studies, CT paige scan. 07/01 23:34 Order name: CBC with Diff; Complete Time: 00:44 [facility] 07/01 23:34 Order name: Comprehensive Metabolic Panel; Complete Time: 00:44 [facility] 07/01 23:34 Order name: Urine Culture [facility] 07/01 23:34 Order name: PT-INR; Complete Time: 00:44 [facility] 07/01 23:34 Order name: Ptt, Activated; Complete Time: 00:44 [facility] 07/02 00:21 Order name: Urine Dipstick--Ancillary (enter results); Complete Time: 00:44 [facility] 07/01 23:34 Order name: CT Stone Protocol [facility] 07/01 23:34 Order name: Urine Dipstick-Ancillary (obtain specimen); Complete Time: 00:22 [facility] 07/01 23:34 Order name: Bladder Scanner; Complete Time: 00:32 [facility] 07/02 01:58 Order name: Hernández: remove hernández; Complete Time: 02:11 paige Administered Medications: 23:50 Drug: Zofran 4 mg Route: IVP; Site: left antecubital; ak1 07/02 00:22 Follow up: Response: No adverse reaction ak1 07/01 23:51 Drug: fentaNYL (PF) 25 mcg Route: IVP; Site: left antecubital; ak1 07/02 00:22 Follow up: Response: No adverse reaction ak1 00:22 Follow up: Response: No adverse reaction; Pain is unchanged, physician notified ak1 07/01 23:51 Drug: fentaNYL (PF) 25 mcg Route: IVP; Site: left antecubital; ak1 07/02 00:23 Follow up: Response: No adverse reaction; Pain is unchanged, physician notified ak1 00:22 Drug: NS 0.9% 1000 ml Route: IV; Rate: 75 ml/hr; Site: left antecubital; ak1 00:22 Drug: Rocephin - (cefTRIAXone) 1 grams Route: IVPB; Infused Over: 30 mins; Site: left ak1 antecubital; 02:29 Follow up: IV Status: Completed infusion ak1 00:32 Drug: fentaNYL (PF) 50 mcg Route: IVP; Site: left antecubital; ak1 00:55 Follow up: Response: No adverse reaction ak1 01:25 Drug: Irvine 10 mg-325 mg 1 tabs Route: PO; ak1 02:29 Follow up: Response: No adverse reaction ak1 01:25 Drug: Cipro 500 mg Route: PO; ak1 02:28 Follow up: Response: No adverse reaction ak Disposition: 07/02/18 01:55 Discharged to Home. Impression: Dysuria. - Condition is Stable. - Discharge Instructions: Dysuria, Hernández Catheter Care, Adult, Hernández Catheter Care, Adult, [id number]. - Prescriptions for Cipro 250 mg Oral Tablet - take 1 tablet by ORAL route every 12 hours; 14 tablet. Pyridium 200 mg Oral Tablet - take 1 tablet by ORAL route every 8 hours for 3 days; 9 tablet. Tylenol- Codeine #3 300-30 mg Oral Tablet - take 2 tablets by ORAL route every 6 hours As needed; 24 tablet. - Medication Reconciliation Form, Thank You Letter, Antibiotic Education, Prescription Opioid Use form. - Follow up: Private Physician; When: 2 - 3 days; Reason: Recheck today's complaints, Continuance of care, Re-evaluation by your physician. Follow up: Jacob Roman MD; When: 2 - 3 days; Reason: Recheck today's complaints, Continuance of care, Re-evaluation by your physician. - Problem is new. - Symptoms have improved. Signatures: Dispatcher [employer] Naif Hoffman MD MD cha Krenek, Amber, RN RN ak1 Corrections: (The following items were deleted from the chart) 01:55 01:55 07/02/2018 01:55 Discharged to Home. Impression: Dysuria. Condition is Stable. [facility] Discharge Instructions: Dysuria, Hernández Catheter Care, Adult, Hernández Catheter Care, Adult, [id number]. Prescriptions for Cipro 250 mg Oral Tablet - take 1 tablet by ORAL route every 12 hours; 14 tablet, Pyridium 200 mg Oral Tablet - take 1 tablet by ORAL route every 8 hours for 3 days; 9 tablet, Tylenol-Codeine #3 300-30 mg Oral Tablet - take 2 tablets by ORAL route every 6 hours As needed; 24 tablet. and Forms are Medication Reconciliation Form, Thank You Letter, Antibiotic Education, Prescription Opioid Use. Follow up: Private Physician; When: 2 - 3 days; Reason: Recheck today's complaints, Continuance of care, Re-evaluation by your physician. Problem is new. Symptoms have improved. [facility] 02:28 01:55 07/02/2018 01:55 Discharged to Home. Impression: Dysuria. Condition is Stable. ak1 Discharge Instructions: Dysuria, Hernández Catheter Care, Adult, Hernández Catheter Care, Adult, [id number]. Prescriptions for Cipro 250 mg Oral Tablet - take 1 tablet by ORAL route every 12 hours; 14 tablet, Pyridium 200 mg Oral Tablet - take 1 tablet by ORAL route every 8 hours for 3 days; 9 tablet, Tylenol-Codeine #3 300-30 mg Oral Tablet - take 2 tablets by ORAL route every 6 hours As needed; 24 tablet. and Forms are Medication Reconciliation Form, Thank You Letter, Antibiotic Education, Prescription Opioid Use. Follow up: Private Physician; When: 2 - 3 days; Reason: Recheck today's complaints, Continuance of care, Re-evaluation by your physician. Follow up: Philmore Abel; When: 2 - 3 days; Reason: Recheck today's complaints, Continuance of care, Re-evaluation by your physician. Problem is new. Symptoms have improved. paige
[2018-07-02 02:32] VITALS: TEMP 98.7
[2018-07-02 02:33] VITALS: BP 143/65; O2SAT 97
--- NOTE | 2018-07-02 07:16 | RAD REPORT ---
EXAM DESCRIPTION: CT - Stone Protocol - 07/02/2018 3:26 am CLINICAL HISTORY: Abdominal pain ; history of appendectomy, cholecystectomy and prostatectomy. A preliminary report was provided at the time of the study and reviewed prior to final report. COMPARISON: CT imaging December 2014, CT chest October 2016 TECHNIQUE: Axial 5 mm thick images were obtained without oral or IV contrast. The [id number] span s the entirety of the system partially obscuring uppermost abdomen and lung bases. All CT scans are performed using dose optimization technique as appropriate and may include automated exposure control or mA/KV adjustment according to patient size. FINDINGS: No hydronephrosis is present and no obstructing ureteral calculi. No suspicious renal mass es. Isodense masses and pyelonephritis are not excluded on a stone protocol CT scan. Patient has a 12 millimeter calcification upper pole calyx on the right. A 4 millimeter calcification is present lowe r pole calyx on the left. Urinary bladder is fully contracted around a Spence catheter. Prostatectomy changes are present. Numerous surgical clips is seen along the pelvic floor. There is pelvic floor la xity. Imaged portions of the liver, spleen and pancreas show no suspicious findings on non-contrast imaging . Cholecystectomy clips are present. No biliary tree dilatation. No significant adrenal finding. No suspicious bowel findings. No acute GI process identifiable. No mass or bulky lymphadenopathy. No free air, free fluid or pneumatosis. Minimal right-side and smal l left-side fat filled inguinal hernias are present. A few nonspecific inguinal lymph nodes present. No free air, free fluid or inflammatory stranding. No significant bony abnormality. Advanced degenerative and postsurgical changes are present in the nery mbar spine. In the anteromedial left lung base there is a 10 millimeter irregular nodular density present. There is adjacent reticulonodular opacities present. These findings are new from the October 2016 CT chest study. A minimal local inflammatory process is possible. The small nodule has enlarged and needs jeff oing monitoring. IMPRESSION: Urinary bladder is fully collapsed around Spence catheter. Catheter appears to be well po sitioned. Pelvic floor laxity is present from prostatectomy. There is no mass, lymphadenopathy or other acute p elvic floor finding. Inguinal hernias show no acute component. Nonobstructing renal calculi. No acute GI process seen. Isodense masses and pyelonephritis are not ex cluded on stone protocol study. A 10 millimeter irregular pulmonary nodule anteromedial right base warrants ongoing monitoring due to apparent growth since October 2016. Repeat CT chest imaging in 3-6 months is recommended. Adjacent reticulonodular opacities may indicate a localized inflammatory process which could potentia lly give a false-positive if PET scan is done at this time. Use of a possible PET scan could be deter mined at the time of the 3-6 month follow-up.
== END 2018-07-02 02:28 | disposition home or self-care (01) ==
LOC: ER 22:43
DX: R31.9 Hematuria, unspecified (principal); I10 Essential (primary) hypertension; Z85.46 Personal history of malignant neoplasm of prostate; Z91.048 Other nonmedicinal substance allergy status
CPT/HCPCS: 36415; 74176; 76377; 80053; 81003; 85025; 85610; 85730; 87086; 96365; 96366; 96375; 99284; J0696; J2405; J3010; J7030; 87088

== ENCOUNTER 2019-01-10 13:32 | Emergency (ER) | payer OTHER, BC ==
--- OUTSIDE RECORDS SUMMARY | 2019-01-10 13:45 | XMS REPORT | Clinical Summary ---
:1945 Author Organization [facility] Address [address] [place] [address] Care Team Providers Name Role Phone Ralph Primary Care Provider Allergies Active Allergy Reactions Severity Noted Date Comments Adhesive Tape Other (See Comments) 01/08/2018 BLISTERS OK WITH PAPER TAPE Latex Other (See Comments) 01/08/2018 BLISTERS Medications Medication Sig Dispensed Refills Start Date End Date Status fentaNYL (DURAGESIC) Place 1 patch 0 Active 100 mcg/hr patch onto the skin every third day. fentaNYL (DURAGESIC) 25 Place 1 patch 0 Active mcg/hr patch onto the skin every third day. gabapentin (NEURONTIN) Take 600 mg by 0 Active 600 MG tablet mouth nightly . metoprolol (TOPROL-XL) Take 25 mg by 0 Active 25 MG 24 hr tablet mouth nightly . atorvastatin (LIPITOR) Take 20 mg by 0 Active 20 MG tablet mouth nightly . amLODIPine (NORVASC) 10 Take 10 mg by 0 Active MG tablet mouth nightly . omeprazole (PRILOSEC) Take 40 mg by 0 Active 40 MG capsule mouth nightly . aspirin 81 MG EC tablet Take 81 mg by 0 Active mouth nightly . Active Problems Problem Noted Date Lumbar neuritis 01/15/2018 Essential hypertension 01/15/2018 S/P insertion of spinal cord stimulator 01/15/2018 Resolved Problems Problem Noted Date Resolved Date Chronic pain syndrome 01/15/2018 01/15/2018 Encounters Date Type Specialty Care Team Description 01/15/2018 Surgery Nitin Huggins LAMINECTOMY,INSERTION MD Giovanni NEUROSTIMULATOR ELECTRODES 01/15/2018 Anesthesia Event Laura Gauthier MD 01/15/2018 - Hospital Encounter General Internal Nitin Huggins Chronic pain syndrome; 01/16/2018 Medicine MD Giovanni Essential hypertension; Lumbar neuritis; S/P insertion of spinal cord stimulator 01/11/2018 Hospital Encounter Cardiology Nitin Huggins MD 01/11/2018 Hospital Encounter Pre-Admission Nitin Huggins MD 01/11/2018 Hospital Encounter Pre-Admission Nitin Huggins MD 01/10/2018 Orders Only Nitin Huggins MD after 01/09/2018 Social History Tobacco Use Types Packs/Day Years Used Date Former Smoker Quit: 2016 Smokeless Tobacco: Never Used Alcohol Use Drinks/Week oz/Week Comments No Sex Assigned at Date Recorded Not on file Job Start Date Occupation Industry Not on file Not on file Not on file Travel History Travel Start Travel End No recent travel history available. Last Filed Vital Signs Vital Sign Reading [...] Not on file Implants Implanted Type Area Director Social Service Device Shelf Model / Identifier Expiration Serial / Lot Date [facility], Later [facility] Full Strlprep 10ml [id number] - [id number] Cement/F N/A: MAHER: BIOSCI 06/02/2019 [id number] / Implanted: Qty: 1 on 01/15/2018 by Nitin Huggins MD iller/Ad Back / hesive [id number] Pump Lead Penta 3mm 60cm [id number] - [id number] Pain N/A: ST JARRETT 11/16/2019 [id number] / Implanted: Qty: 1 on 01/15/2018 by Nitin Huggins MD Mgmt/Sti Back MED: NEUROMODULAT [id number] / mulator ION Stim Neuro Proclaim 7 Elite - [id number] Pain N/A: [facility] JAR[facility]TT 11/05/2019 [id number] / Implanted: Qty: 1 on 01/15/2018 by Nitin Huggins MD Mgmt/Sti Back MED: NEUROMODULAT [id number] / mulator ION Procedures Procedure Name Priority Date/Time Associated Comments Diagnosis RHYTHM STRIP - SCAN 01/18/2018 1:20 PM CDT NEEDLE EMG, 2 EXTREMITY Routine 01/15/2018 2:00 Results for this PM CDT procedure are in the results section. 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 PROCEDURE W/ 01/15/2018 10:50 Chronic pain INTRAOPERATIVE AM CDT syndrome NEUROMONITORING Lumbar neuritis Special Needs (C-ARM, NEURO- MONITORING: SSEP, NEUROSCOPE, [facility] JARRETT, ELIDA JEWELRY BENCH MOLDER) PROCEDURE W/ C-ARM 01/15/2018 10:50 AM CDT Chronic pain syndrome Lumbar neuritis Special Needs (C-ARM, NEURO- MONITORING: SSEP, NEUROSCOPE, [facility] J[facility]TT, ELIDA JEWELRY BENCH MOLDER) INSERTION,SPINAL CORD 01/15/2018 10:50 AM CDT Chronic pain syndrome NEUROSTIMULATOR Lumbar neuritis Special Needs (C-ARM, NEURO- MONITORING: SSEP, NEUROSCOPE, [facility] JARRETT, ELIDA JEWELRY BENCH MOLDER) LAMINECTOMY,INSERTION 01/15/2018 10:50 AM Chronic pain syndrome NEUROSTIMULATOR ELECTRODES CDT Lumbar neuritis Special Needs (C-ARM, NEURO- MONITORING: SSEP, NEUROSCOPE, ST JARRETT, ELIDA JEWELRY BENCH MOLDER) TRANSFUSION SERVICE REPORT - SCAN 01/12/2018 5:56 PM CDT ECG 12-LEAD Routine 01/11/2018 8:28 AM CDT Procedure Note - Interface, External Ris In - 01/11/2018 8:55 AM CDT Ventricular Rate 66 BPM Atrial Rate 66 BPM P-R Interval 148 ms QRS Duration 72 ms Q-T Interval 392 ms QTC Calculation(Bazett) 410 ms P [place] 29 degrees R [place] 14 degrees T [place] 37 degrees Normal sinus rhythm Nonspecific T wave abnormality Abnormal ECG No previous ECGs available ECG 12-LEAD STAT 01/11/2018 8:28 AM CDT CBC W/PLT COUNT & AUTO Routine 01/11/2018 8:26 AM CDT Results for this DIFFERENTIAL procedure are in the results section. TYPE AND SCREEN, AUTOMATED Routine 01/11/2018 8:26 AM CDT CBC W/PLT COUNT & AUTO Routine 01/11/2018 8:26 AM CDT Results for this DIFFERENTIAL procedure are in the results section. GLUCOSE Routine 01/11/2018 8:26 AM CDT BASIC METABOLIC PANEL (7) Routine 01/11/2018 8:26 AM CDT PROTHROMBIN TIME/INR Routine 01/11/2018 8:26 AM CDT HIV-1 ANTIGEN WITH HIV-1/2 Routine 01/11/2018 8:26 AM CDT Results for this ANTIBODY procedure are in the results section. after 01/09/2018 Results RHYTHM STRIP - SCAN (01/18/2018 1:20 PM CDT) Narrative Performed At NEEDLE EMG, 2 EXTREMITY (01/15/2018 2:00 PM CDT) Specimen Narrative Performed At INTRAOPERATIVE MONITORING REPORT GE RIS Patient Name: Cas Denny [facility] Surgery Date: 01/15/18 [place] Pro: [id number] Monitoring began at 11:40 a.m and ended [...] INTRAOPERATIVE MONITORING REPORT Patient Name: Cas Denny [facility] Surgery Date: 01/15/18 [place] Pro: [id number] Monitoring began at 11:40 a.m and ended [...] Milan M.D., FACNS, FAAN, FAES G89.4, M54.16 Performing Organization Address City/State/Zipcode Phone Number [employer] [place] radiation protection technician in or 30 minute increments (01/15/2018 1:15 PM CDT) Specimen Narrative Performed At FINAL REPORT [employer] Fluoroscopy 1 view intraoperative 01/15/2018 2:13 PM CLINICAL HISTORY: Instrument localization COMPARISON: None available IMPRESSION: Please correlate imaging report findings with the procedure note prepared by Dr. Huggins, as an intra-procedure imaging consultation was not requested. Reported fluoroscopy time: 29.9 seconds. Signed: John Ortiz MD Report Verified Date/Time:01/15/2018 14:19:13 Reading Location: [facility] C013W Consult Reading Room Procedure Note Interface, External [...] Report Verified Date/Time: 01/15/2018 14:19:13 Reading Location: [facility] C013W Consult Reading Room Performing Organization Address City/[facility] Phone Number GE RIS TRANSFUSION SERVICE REPORT - SCAN (01/12/2018 5:56 PM CDT) Narrative Performed At ECG 12 lead (01/11/2018 8:28 AM CDT) Specimen Narrative Performed At Ventricular Rate 66 BPM GE MUSE Atrial Rate 66 BPM P-R Interval 148 ms QRS Duration 72 ms Q-T Interval 392 ms QTC Calculation(Bazett) 410 ms P [place] 29 degrees R [place] 14 degrees T [place] 37 degrees Normal sinus rhythm Nonspecific T wave abnormality Abnormal ECG No previous ECGs available Confirmed by MD POPPY, AB ([id number]) on 01/11/2018 9:43:25 PM Procedure Note Interface, External Ris In - 01/11/2018 9:43 PM CDT Ventricular Rate 66 BPM Atrial Rate 66 BPM P-R Interval 148 ms QRS Duration 72 ms Q-T Interval 392 ms QTC Calculation(Bazett) 410 ms P [place] 29 degrees R [place] 14 degrees T [place] 37 degrees Normal sinus rhythm Nonspecific T wave abnormality Abnormal ECG No previous ECGs available Confirmed by MD POPPY, IHAB ([id number]) on 01/11/2018 9:43:25 PM Performing Organization Address City/[facility] Phone Number GE MUSE Type and screen, automated (01/11/2018 8:26 AM CDT) ABO/RH AUTOMATED (BEAKER) A NEGATIVE [facility] Ab Scrn NEGATIVE [facility] Specimen Blood Performing Organization Address City/State/Zipcode Phone Number [facility] [address] [place] [address] [phone] HIV-1 Antigen with HIV-1/2 Antibody (01/11/2018 8:26 AM CDT) HIV-1 Antigen with HIV 1&2 NON-REACTIVE Nonreactive [facility] Antibody [facility] Specimen Blood Performing Organization Address City/State/Zipcode Phone Number [facility] [address] [place] [address] [phone] CENTER CBC with platelet count + automated diff (01/11/2018 8:26 AM CDT) WBC 10.1 3.5 - 10.5 K/L [facility] RBC 4.87 4.63 - 6.08 M/L [facility] Hemoglobin 14.6 13.7 - 17.5 GM/DL [facility] Hematocrit 46.1 40.1 - 51.0 % [facility] MCV 94.7 (H) 79.0 - 92.2 fL [facility] MCH 30.0 25.7 - 32.2 pg [facility] MCHC 31.7 (L) 32.3 - 36.5 GM/DL [facility] RDW 12.7 11.6 - 14.4 % [facility] Platelets 286 150 - 450 K/CU MM [facility] MPV 10.1 9.4 - 12.4 fL [facility] nRBC 0 0 - 0 /100 WBC [facility] % Neutros 61 % [facility] % Lymphs 27 % [facility] % Monos 9 % [facility] % Eos 3 % [facility] % Baso 1 % [facility] # Neutros 6.16 (H) 1.78 - 5.38 K/L [facility] # Lymphs 2.73 1.32 - 3.57 K/L [facility] # Monos 0.89 (H) 0.30 - 0.82 K/L [facility] # Eos 0.25 0.04 - 0.54 K/L [facility] # Baso 0.07 0.01 - 0.08 K/L [facility] Immature Granulocytes-Relative 0 0 - 1 % [facility] Specimen Blood Performing Organization Address City/[facility] Phone Number [address] [address] [place] Prothrombin time/INR (01/11/2018 8:26 AM CDT) Protime 13.8 11.7 - 14.7 seconds [facility] INR 1.1 <=5.9 [facility] Specimen Blood Narrative Performed At [facility] RECOMMENDED COUMADIN/WARFARIN INR THERAPY RANGES STANDARD DOSE: 2.0 - 3.0 Includes: PROPHYLAXIS for venous thrombosis, systemic embolization; TREATMENT for venous thrombosis and/or pulmonary embolus. HIGH RISK: Target INR is 2.5-3.5 for patients with mechanical heart valves. Performing Organization Address City/[facility] Phone Number [address] [address] CENTER Glucose (01/11/2018 8:26 AM CDT) Glucose 126 (H) 70 - 105 mg/dL [facility] Specimen Blood Performing Organization Address [facility] Phone Number [address] [address] CENTER Basic Metabolic Panel (01/11/2018 8:26 AM CDT) Sodium 142 136 - 145 meq/L [facility] Potassium 4.1 3.5 - 5.1 meq/L [facility] Chloride 106 98 - 107 meq/L [facility] CO2 28 22 - 29 meq/L [facility] BUN 21 7 - 21 mg/dL [facility] Creatinine 1.06 0.57 - 1.25 mg/dL [facility] Glucose 126 (H) 70 - 105 mg/dL [facility] Calcium 9.5 8.4 - 10.2 mg/dL [facility] EGFR 68Comment: ESTIMATED GFR IS mL/min/1.73 sq m [facility] NOT ACCURATE CREATININE [facility]ENTER CLEARANCE IN PREDICTING GLOMERULAR FILTRATION RATE. ESTIMATED GFR IS NOT APPLICABLE FOR DIALYSIS PATIENTS. Specimen Blood Performing Organization Address City/State/Zipcode Phone Number [facility] [address] [place] [address] CENTER after 01/09/2018 Insurance Payer Benefit Plan / Subscriber ID Type Phone Address Group MEDICARE MEDICARE A B xxxxxxxxxx Medicare BLUE CROSS/BLUE [place] xxxxxxxxxxxx PPO [phone] [address] [place] [address] (Home) [place] [address] Advance Directives For more information, please contact:[address] [phone] Code Status Date Activated Date Inactivated Comments Full Code 01/15/2018 6:59 PM 01/16/2018 2:13 PM This code status was determined by: Patient Full Code 01/15/2018 8:21 AM 01/15/2018 6:59 PM This code status was determined by: Patient
--- OUTSIDE RECORDS SUMMARY | 2019-01-10 13:46 | XMS REPORT | Continuity of Care Document ---
[...] Number For Provider Date Date Visit Outpatient [id number] CHANDRIKA 06/02 [facility] Outpatient [id number] CHANDRIKA 11/30 [facility] Procedures Procedure Code Date Perfomer Comments Source
--- OUTSIDE RECORDS SUMMARY | 2019-01-10 13:46 | XMS REPORT ---
:1945 Author Organization [facility] Address [address] [place] [address] Dr. Clements [address] [place] [address] Care Team Providers Name Role Phone EDILBERTO HUGGINS SASHA Unavailable Unavailable Problems This patient has no known problems. Allergies, Adverse Reactions, Alerts This patient has no known allergies or adverse reactions. Medications This patient has no known medications. Results Test Description Test Time Test Comments Text Results Atomic Results Result Comments NEEDLE EMG, 2 2018-01-18 INTRAOPERATIVE MONITORING REPORT EXTREMITY 16:14:00 Patient Name: Toro Rodriguez [facility] Surgery Date: 01/15/18 [place] Pro: [id number] Monitoring began at 11:40 a.m and ended [...] Sonido Milan M.D., FACNS, FAAN, FAESG89.4, M54.16 [facility] SH[employer] [facility] IN 2018-01-15 Reason for FINAL REPORT OR/30 [...] MDReport Verified Date/Time: 01/15/2018 14:19:13 Reading Location: [address] Consult Reading Room -1 ANTIGEN WITH HIV-1/2 ANTIBODY 2018-01-11 09:49:00 Test Item Value Reference Range Comments HIV-1 ANTIGEN WITH HIV 1\T\2 ANTIBODY (2) (BEAKER) (test Nonreactive Nonreactive budk=7272) [id number] 09:32:00 Test Item Value Reference Range Comments GLUCOSE RANDOM (BEAKER) (test axlo=080) 126 mg/dL 70-105 BASIC METABOLIC [id number] 09:32:00 Test Item Value Reference Range Comments SODIUM (BEAKER) (test 142 meq/L 136-145 jpmo=595) POTASSIUM (BEAKER) (test 4.1 meq/L 3.5-5.1 dzez=690) CHLORIDE (BEAKER) (test 106 meq/L 98-107 usxe=823) CO2 (BEAKER) (test 28 meq/L 22-29 tvpx=577) BLOOD UREA NITROGEN 21 mg/dL 7-21 (BEAKER) (test eqzw=761) CREATININE (BEAKER) (test 1.06 mg/dL 0.57-1.25 dysn=220) GLUCOSE RANDOM (BEAKER) 126 mg/dL 70-105 (test jzyv=085) CALCIUM (BEAKER) (test 9.5 mg/dL 8.4-10.2 ukxc=360) EGFR (BEAKER) (test 68 mL/min/1.73 sq m ESTIMATED GFR IS NOT gafl=4447) ACCURATE CREATININE CLEARANCE IN PREDICTING GLOMERULAR FILTRATION RATE. ESTIMATED GFR IS NOT APPLICABLE FOR DIALYSIS PATIENTS. PROTHROMBIN TIME/[id number] 09:29:00 Test Item Value Reference Range Comments PROTIME (BEAKER) (test gtle=893) 13.8 seconds 11.7-14.7 INR (BEAKER) (test ewmy=034) 1.1 <=5.9 RECOMMENDED COUMADIN/WARFARIN INR THERAPY RANGESSTANDARD DOSE: 2.0 - 3.0 Includes: PROPHYLAXIS forvenous thrombosis, systemic embolization; TREATMENT for venous thrombosis and/or pulmonary embolus.HIGH RISK: Target INR is 2.5-3.5 for patients with mechanical heart valves.CBC W/PLT COUNT & AUTO [id number] 09:19:00 Test Item Value Reference Range Comments WHITE BLOOD CELL COUNT (BEAKER) (test xhlt=030) 10.1 K/ L 3.5-10.5 RED BLOOD CELL COUNT (BEAKER) (test jijz=006) 4.87 M/ L 4.63-6.08 HEMOGLOBIN (BEAKER) (test dult=135) 14.6 GM/DL 13.7-17.5 HEMATOCRIT (BEAKER) (test xzse=574) 46.1 % 40.1-51.0 MEAN CORPUSCULAR VOLUME (BEAKER) (test owdw=627) 94.7 fL 79.0-92.2 MEAN CORPUSCULAR HEMOGLOBIN (BEAKER) (test 30.0 pg 25.7-32.2 hgwy=300) MEAN CORPUSCULAR HEMOGLOBIN CONC (BEAKER) (test 31.7 GM/DL 32.3-36.5 wobe=831) RED CELL DISTRIBUTION WIDTH (BEAKER) (test 12.7 % 11.6-14.4 oonw=702) PLATELET COUNT (BEAKER) (test nxrd=733) 286 K/CU MM 150-450 MEAN PLATELET VOLUME (BEAKER) (test vpvu=061) 10.1 fL 9.4-12.4 NUCLEATED RED BLOOD CELLS (BEAKER) (test 0 /100 WBC 0-0 boqm=913) NEUTROPHILS RELATIVE PERCENT (BEAKER) (test 61 % xgdl=800) LYMPHOCYTES RELATIVE PERCENT (BEAKER) (test 27 % jcdf=633) MONOCYTES RELATIVE PERCENT (BEAKER) (test 9 % bnjk=459) EOSINOPHILS RELATIVE PERCENT (BEAKER) (test 3 % oedx=481) BASOPHILS RELATIVE PERCENT (BEAKER) (test 1 % nogi=047) NEUTROPHILS ABSOLUTE COUNT (BEAKER) (test 6.16 K/ L 1.78-5.38 ldfy=737) LYMPHOCYTES ABSOLUTE COUNT (BEAKER) (test 2.73 K/ L 1.32-3.57 fbju=918) MONOCYTES ABSOLUTE COUNT (BEAKER) (test 0.89 K/ L 0.30-0.82 tlbp=208) EOSINOPHILS ABSOLUTE COUNT (BEAKER) (test 0.25 K/ L 0.04-0.54 fvmb=341) BASOPHILS ABSOLUTE COUNT (BEAKER) (test 0.07 K/ L 0.01-0.08 jzhm=059) IMMATURE GRANULOCYTES-RELATIVE PERCENT (BEAKER) 0 % 0-1 (test wrxw=9612)
[2019-01-10] MEDS ORDERED: ONDANSETRON 4 MG/2 ML VIAL ONE (14:48)
[2019-01-10] MEDS ORDERED: NA CHLORIDE 0.9% 1,000 ML ONE (14:48)
[2019-01-10] MEDS ORDERED: HYDROMORPHONE HCL 1 MG/ML INJ ONE ×3 (14:48→16:54)
[2019-01-10 14:55] LABS: Absolute Lymphocytes (CBC) 1.6 K/uL (0.7-4.9); Absolute Monocytes 0.6 K/uL (0.1-1.3); Absolute Neutrophil 7.6 K/uL (1.8-8.0); Basophils % 0.4 % (0-1.3); Eosinophils % 0.4 % (0-4.4); Hematocrit 42.6 % (39.6-49.0); Lymphocytes % 15.7 % (15.3-44.8); MPV 8.3 fL (7.6-11.3); Monocytes % 6.4 % (3.3-12.3); RBC Red Blood Cell Count 4.67 M/uL (4.33-5.43)
--- NOTE | 2019-01-10 15:14 | RAD REPORT ---
EXAM DESCRIPTION: CT - Stone Protocol - 01/10/2019 2:56 pm CLINICAL HISTORY: Right back pain, right flank pain, prior appendectomy and cholecystectomy COMPARISON: CT imaging July 01, 2018 TECHNIQUE: Axial 5 mm thick images were obtained without oral or IV contrast. The qjkbi-ov-nzut span s the entirety of the system partially obscuring uppermost abdomen and lung bases. All CT scans are performed using dose optimization technique as appropriate and may include automated exposure control or mA/KV adjustment according to patient size. FINDINGS: Mild hydronephrosis of the pelvis and calices the right kidney is present secondary to 5 m m and 7 mm calculi at the UPJ. No other ureteral calculi seen. No bladder calculi. No hydronephrosis of the left kidney. Patient has very small punctate calcifications in the lower pole of the right kid dianna as well as several 2 mm size calcifications lower left kidney. No suspicious renal masses. Isodense masses and pyelonephritis are not excluded on a stone protocol CT scan. No urinary bladder suspicious finding. No significant adrenal finding. Imaged portions of the liver, spleen and pancreas show no suspicious findings on non-contrast imaging . Gallbladder is absent. No biliary tree dilatation. No suspicious bowel findings. Sigmoid diverticulosis present without diverticulitis. Right inguinal hernia surgical changes are noted. There is minimal left inguinal hernia. Prostate gla nd is been resected. No pelvic floor mass identified. No free air, free fluid or inflammatory strandi ng. Disc and bony degenerative changes are present. Extensive lower lumbar surgical changes are present. No acute bone findings. IMPRESSION: Mild hydronephrosis of the right pelvis and calices secondary to 5 mm and 7 mm calculi a t the right UPJ. Bilateral nonobstructing calyx calculi. No bladder calculus. Bladder is fully contracted. Isodense masses and pyelonephritis are not excluded on stone protocol technique. Additional nonacute findings are detailed in the body of the report.
[2019-01-10 15:36] LABS: ALT/SGPT 24 U/L (12-78); AST/SGOT 20 U/L (15-37); Albumin 3.3 g/dL (3.4-5.0); Alkaline Phosphatase 83 U/L (45-117); BUN Blood Urea Nitrogen 21 mg/dL (7-18); Bicarbonate 27 mmol/L (21-32); Bilirubin Direct < 0.1 mg/dL (0-0.2); Bilirubin Total 0.6 mg/dL (0.2-1.0); Glucose Level 152 mg/dL (74-106); Lipase 71 U/L (73-393); Potassium 3.8 mmol/L (3.5-5.1); Protein, Total 6.5 g/dL (6.4-8.2); Sodium Level 143 mmol/L (136-145)
--- NOTE | 2019-01-10 15:38 | ER ---
Nurse's Notes [facility] Name: Cas Denny Age: 73 yrs Sex: Male : 1945 Arrival Date: 01/10/2019 Time: 13:34 Bed 15 Private MD: Santana Bernstein R Diagnosis: Hydronephrosis with renal and ureteral calculous obstruction;Abdominal tenderness;Cystitis Presentation: 01/10 14:06 Presenting complaint: Patient states: R low back pain that began this morning. Pt ss believes it may be another kidney stone as he has experienced 11. Transition of care: patient was not received from another setting of care. Onset of symptoms was January 10, 2019. Risk Assessment: Do you want to hurt yourself or someone else? Patient reports no desire to harm self or others. Initial Sepsis Screen: Does the patient meet any 2 criteria? No. Patient's initial sepsis screen is negative. Does the patient have a suspected source of infection? No. Patient's initial sepsis screen is negative. Care prior to arrival: None. 14:06 Method Of Arrival: Ambulatory ss 14:06 Acuity: MIRZA 2 ss Historical: - Allergies: 14:08 Tape; ss - PMHx: 14:08 Back pain; Hypertension; Prostate Cancer; ss - PSHx: 14:08 neck surgery; back surgery; Appendectomy; Cholecystectomy; prostatectomy; Hernia ss repair; bladder dilation; DVR stimulator; Heart stents; - Immunization history:: Adult Immunizations up to date. - Social history:: Smoking status: Patient/guardian denies using tobacco. - Ebola Screening: : Patient denies exposure to infectious person Patient denies travel to an Ebola-affected area in the 21 days before illness onset. - Family history:: not pertinent. Screenin:47 Abuse screen: Denies threats or abuse. Denies injuries from another. Nutritional hb screening: No deficits noted. Tuberculosis screening: No symptoms or risk factors identified. Fall Risk None identified. Assessment: 14:20 General: Appears in no apparent distress. uncomfortable, Behavior is cooperative. Pain: hb Pain currently is 10 out of 10 on a pain scale. Neuro: Level of Consciousness is awake, alert, obeys commands, Oriented to person, place, time, situation. Cardiovascular: Capillary refill < 3 seconds Patient's skin is warm and dry. Respiratory: Airway is patent Respiratory effort is even, unlabored, Respiratory pattern is regular, symmetrical. GI: Abdomen is non-distended, Bowel sounds present X 4 quads. Abd is soft and non tender X 4 quads. : Reports pain flank(s). EENT: No signs and/or symptoms were reported regarding the EENT system. Derm: Skin is intact, is healthy with good turgor. Musculoskeletal: No signs and/or symptoms reported regarding the musculoskeletal system. 15:15 Reassessment: Pt reports pain 10/10, unchanged after medication, Dr. Batista notified, hb repeat Dilaudid administered as ordered. 16:58 Reassessment: Dr. Roman at bedside. hb 17:15 Reassessment: Per Dr. Roman, pt to be discharged home with f/u in office , give hb Flomax and evening IV therapy dose of meropenem before discharged home today. Vital Signs: 14:08 BP 123 / 53; Pulse 68; Resp 23; Temp 97.9(TE); Pulse Ox 95% on R/A; Weight 71.67 kg; ss Height 5 ft. 8 in. (172.72 cm); Pain 10/10; 15:00 BP 140 / 62; Pulse 67; Resp 15; Pulse Ox 96% on R/A; Pain 10/10; hb 16:00 BP 136 / 86; Pulse 77; Resp 15; Pulse Ox 100% on R/A; hb 17:00 BP 143 / 68; Pulse 79; Resp 15; Pulse Ox 100% ; hb 14:08 Body Mass Index 24.02 (71.67 kg, 172.72 cm) ED Course: 13:34 Patient arrived in ED. mr 13:35 Santana Bernstein MD is Private Physician. mr 14:08 Triage completed. ss 14:08 Arm band placed on right wrist. ss 14:10 Naif Batista MD is Attending Physician. [facility] 14:30 Shavon Minor, JENNIFER is Primary Nurse. hb 14:47 Patient has correct armband on for positive identification. Bed in low position. Call hb light in reach. Side rails up X 1. 14:47 Accessed PICC line. Clean \T\ dry. Good blood return. Flushes easily. hb 14:56 CT Stone Protocol In Process Unspecified. EDMS 15:35 Santana Bernstein MD is Hospitalizing Provider. paige 17:39 Santana Bernstein MD is Referral Physician. paige 17:39 Jacob Roman MD is Referral Physician. paige 17:52 No provider procedures requiring assistance completed. Patient did not have IV access ss during this emergency room visit. Administered Medications: 14:46 Drug: NS 0.9% 1000 ml Route: IV; Rate: 1 bolus; Site: PICC; hb 14:46 Drug: Dilaudid 1 mg Route: IVP; Site: PICC; hb 15:10 Follow up: Response: No adverse reaction; Pain is unchanged, physician notified hb 14:46 Drug: Zofran 4 mg Route: IVP; Site: PICC; hb 15:10 Follow up: Response: No adverse reaction hb 15:10 Drug: Dilaudid 1 mg Route: IVP; Site: right antecubital; hb 16:00 Follow up: Response: No adverse reaction; Pain is decreased hb 16:32 Drug: Rocephin - (cefTRIAXone) 1 grams Route: IVPB; Infused Over: 30 mins; Site: PICC; hb 16:45 Follow up: IV Status: Completed infusion hb 17:22 Follow up: Response: No adverse reaction; IV Intake: 10ml hb 16:47 Drug: Dilaudid 1 mg Route: IVP; Site: PICC; hb 17:22 Follow up: Response: No adverse reaction; Pain is decreased hb 17:19 Drug: Flomax 0.4 mg Route: PO; hb 17:40 Follow up: Response: No adverse reaction hb 17:23 Drug: Meropenem 1 grams Route: IV; Rate: calculated rate; Site: PICC; hb 17:55 Follow up: Response: No adverse reaction; IV Status: Completed infusion; IV Intake: hb 100ml Intake: 17:22 IV: 10ml; Total: 10ml. hb 17:55 IV: 100ml; Total: 110ml. hb Outcome: 15:37 Decision to Hospitalize by Provider. paige 17:40 Discharge ordered by . paige 17:52 Discharged to home ambulatory, with family. ss 17:52 Condition: good 17:52 Discharge instructions given to patient, family, Instructed on discharge instructions, follow up and referral plans. medication usage, Demonstrated understanding of instructions, follow-up care, medications, Prescriptions given X 2. 17:52 Patient left the ED. ss Signatures: Dispatcher [employer] EDNaif Foley MD MD cha Rivera, Nida mr Gloria Frazier RN RN Shavon Carbone RN RN hb Corrections: (The following items were deleted from the chart) 15:34 15:15 Reassessment: Patient appears in no apparent distress at this time. Patient hb and/or family updated on plan of care and expected duration. Pain level reassessed. Patient is alert, oriented x 3, equal unlabored respirations, skin warm/dry/pink. hb
--- NOTE | 2019-01-10 15:39 | EDPHYS ---
Physician Documentation [facility] Name: Cas Denny Age: 73 yrs Sex: Male : 1945 Arrival Date: 01/10/2019 Time: 13:34 Bed 15 Private MD: Santana Bernstein R ED Physician Naif Batista HPI: 01/10 14:33 This 73 yrs old Male presents to ER via Ambulatory with complaints of paige Possible Kidney Stone. 14:33 The patient presents with abdominal pain in the right upper quadrant, right lower paige quadrant. Onset: The symptoms/episode began/occurred 1 day(s) ago. The patient complains of pain in the right mid back and right low back. The pain radiates to the right mid back and right low back. Onset: The symptoms/episode began/occurred 2 day(s) ago. Modifying factors: The symptoms are alleviated by nothing. the symptoms are aggravated by nothing. Associated signs and symptoms: The patient has no apparent associated signs or symptoms. Modifying factors: The symptoms are alleviated by nothing, the symptoms are aggravated by nothing. Historical: - Allergies: 14:08 Tape; ss - PMHx: 14:08 Back pain; Hypertension; Prostate Cancer; ss - PSHx: 14:08 neck surgery; back surgery; Appendectomy; Cholecystectomy; prostatectomy; Hernia ss repair; bladder dilation; DVR stimulator; Heart stents; - Immunization history:: Adult Immunizations up to date. - Social history:: Smoking status: Patient/guardian denies using tobacco. - Ebola Screening: : Patient denies exposure to infectious person Patient denies travel to an Ebola-affected area in the 21 days before illness onset. - Family history:: not pertinent. ROS: 14:33 Constitutional: Negative for fever, chills, and weight loss, Eyes: Negative for injury, paige pain, redness, and discharge, ENT: Negative for injury, pain, and discharge, Neck: Negative for injury, pain, and swelling, Cardiovascular: Negative for chest pain, palpitations, and edema, Respiratory: Negative for shortness of breath, cough, wheezing, and pleuritic chest pain, Abdomen/GI: Negative for abdominal pain, nausea, vomiting, diarrhea, and constipation, : Negative for injury, bleeding, discharge, and swelling, MS/Extremity: Negative for injury and deformity, Skin: Negative for injury, rash, and discoloration, Neuro: Negative for headache, weakness, numbness, tingling, and seizure, Psych: Negative for depression, anxiety, suicide ideation, homicidal ideation, and hallucinations, Allergy/Immunology: Negative for hives, rash, and allergies, Endocrine: Negative for neck swelling, polydipsia, polyuria, polyphagia, and marked weight changes, Hematologic/Lymphatic: Negative for swollen nodes, abnormal bleeding, and unusual bruising. 14:33 Back: Positive for pain at rest, flank pain, on the right. Exam: 14:33 Constitutional: This is a well developed, well nourished patient who is awake, alert, paige and in no acute distress. Head/Face: Normocephalic, atraumatic. Eyes: Pupils equal round and reactive to light, extra-ocular motions intact. Lids and lashes normal. Conjunctiva and sclera are non-icteric and not injected. Cornea within normal limits. Periorbital areas with no swelling, redness, or edema. ENT: Nares patent. No nasal discharge, no septal abnormalities noted. Tympanic membranes are normal and external auditory canals are clear. Oropharynx with no redness, swelling, or masses, exudates, or evidence of obstruction, uvula midline. Mucous membranes moist. Neck: Trachea midline, no thyromegaly or masses palpated, and no cervical lymphadenopathy. Supple, full range of motion without nuchal rigidity, or vertebral point tenderness. No Meningismus. Chest/axilla: Normal chest wall appearance and motion. Nontender with no deformity. No lesions are appreciated. Cardiovascular: Regular rate and rhythm with a normal S1 and S2. No gallops, murmurs, or rubs. Normal PMI, no JVD. No pulse deficits. Respiratory: Lungs have equal breath sounds bilaterally, clear to auscultation and percussion. No rales, rhonchi or wheezes noted. No increased work of breathing, no retractions or nasal flaring. Abdomen/GI: Soft, non-tender, with normal bowel sounds. No distension or tympany. No guarding or rebound. No evidence of tenderness throughout. Male : Normal genitalia with no discharge or lesions. Skin: Warm, dry with normal turgor. Normal color with no rashes, no lesions, and no evidence of cellulitis. MS/ Extremity: Pulses equal, no cyanosis. Neurovascular intact. Full, normal range of motion. Neuro: Awake and alert, GCS 15, oriented to person, place, time, and situation. Cranial nerves II-XII grossly intact. Motor strength 5/5 in all extremities. Sensory grossly intact. Cerebellar exam normal. Normal gait. Psych: Awake, alert, with orientation to person, place and time. Behavior, mood, and affect are within normal limits. 14:33 Back: pain, that is mild, that is moderate, ROM is normal, normal spinal alignment noted, CVA tenderness, that is moderate, is noted on the right, vertebral tenderness, is not appreciated, muscle spasm, is not present. Vital Signs: 14:08 BP 123 / 53; Pulse 68; Resp 23; Temp 97.9(TE); Pulse Ox 95% on R/A; Weight 71.67 kg; ss Height 5 ft. 8 in. (172.72 cm); Pain 10/10; 15:00 BP 140 / 62; Pulse 67; Resp 15; Pulse Ox 96% on R/A; Pain 10/10; hb 16:00 BP 136 / 86; Pulse 77; Resp 15; Pulse Ox 100% on R/A; hb 17:00 BP 143 / 68; Pulse 79; Resp 15; Pulse Ox 100% ; hb 14:08 Body Mass Index 24.02 (71.67 kg, 172.72 cm) ss MDM: 14:10 Patient medically screened. [facility] 14:36 Data reviewed: vital signs, nurses notes, lab test result(s), radiologic studies. [facility] 17:38 Physician consultation: Jacob roman, [place], will see Thursday office. [facility] 01/10 14:33 Order name: Basic Metabolic Panel [facility] 01/10 14:33 Order name: CBC with Diff; Complete Time: 15:24 [facility] 01/10 14:33 Order name: Creatinine for Radiology; Complete Time: 15:24 [facility] 01/10 14:33 Order name: Hepatic Function [facility] 01/10 14:33 Order name: Lipase [facility] 01/10 14:33 Order name: Urine Culture [facility] 01/10 14:33 Order name: CT Stone Protocol; Complete Time: 15:24 [facility] 01/10 14:55 Order name: Urine Dipstick--Ancillary (enter results) 01/10 14:33 Order name: IV Saline Lock; Complete Time: 14:47 [facility] 01/10 14:33 Order name: Labs collected and sent; Complete Time: 14:47 [facility] 01/10 14:33 Order name: Urine Dipstick-Ancillary (obtain specimen); Complete Time: 14:46 [facility] 01/10 15:42 Order name: CONS Physician Consult EDMS Administered Medications: 14:46 Drug: NS 0.9% 1000 ml Route: IV; Rate: 1 bolus; Site: PICC; hb 14:46 Drug: Dilaudid 1 mg Route: IVP; Site: PICC; hb 15:10 Follow up: Response: No adverse reaction; Pain is unchanged, physician notified hb 14:46 Drug: Zofran 4 mg Route: IVP; Site: PICC; hb 15:10 Follow up: Response: No adverse reaction hb 15:10 Drug: Dilaudid 1 mg Route: IVP; Site: right antecubital; hb 16:00 Follow up: Response: No adverse reaction; Pain is decreased hb 16:32 Drug: Rocephin - (cefTRIAXone) 1 grams Route: IVPB; Infused Over: 30 mins; Site: PICC; hb 16:45 Follow up: IV Status: Completed infusion hb 17:22 Follow up: Response: No adverse reaction; IV Intake: 10ml hb 16:47 Drug: Dilaudid 1 mg Route: IVP; Site: PICC; hb 17:22 Follow up: Response: No adverse reaction; Pain is decreased hb 17:19 Drug: Flomax 0.4 mg Route: PO; hb 17:40 Follow up: Response: No adverse reaction hb 17:23 Drug: Meropenem 1 grams Route: IV; Rate: calculated rate; Site: PICC; hb 17:55 Follow up: Response: No adverse reaction; IV Status: Completed infusion; IV Intake: hb 100ml Disposition: 01/10/19 17:40 Discharged to Home. Impression: Hydronephrosis with renal and ureteral calculous obstruction, Abdominal tenderness, Cystitis. - Condition is Stable. - Discharge Instructions: Abdominal Pain, Adult, Dysuria, Kidney Stones, Kidney Stones, [id number], Hydronephrosis, Hypokalemia. - Prescriptions for Flomax 0.4 mg Oral Capsule, Sust. Release 24 hr - take 1 capsule by ORAL route once daily 1/2 hour following the same meal each day; 20 capsule. - Medication Reconciliation Form, Thank You Letter, Antibiotic Education, Prescription Opioid Use form. - Follow up: Santana Bernstein MD; When: 2 - 3 days; Reason: Recheck today's complaints, Continuance of care, Re-evaluation by your physician. Follow up: Jacob Roman MD; When: 2 - 3 days; Reason: Recheck today's complaints, Continuance of care, Re-evaluation by your physician. - Problem is new. - Symptoms have improved. Signatures: Dispatcher [employer] EDMS Naif Batista MD MD cha Smirch, Shelby, RN RN Shavon Minor RN RN Corrections: (The following items were deleted from the chart) 17:38 15:37 Hospitalization Ordered by Santana Bernstein MD for Inpatient Admission. Preliminary [facility] diagnosis is Hydronephrosis with renal and ureteral calculous obstruction - intractable pain; Cystitis. Bed requested for Telemetry/MedSurg (Inpatient). Status is Inpatient Admission. Condition is Fair. Problem is new. Symptoms have improved. UTI on Admission? Yes. [facility] 17:52 17:40 01/10/2019 17:40 Discharged to Home. Impression: Hydronephrosis with renal and ss ureteral calculous obstruction; Abdominal tenderness; Cystitis. Condition is Stable. Forms are Medication Reconciliation Form, Thank You Letter, Antibiotic Education, Prescription Opioid Use. Follow up: Santana Bernstein; When: 2 - 3 days; Reason: Recheck today's complaints, Continuance of care, Re-evaluation by your physician. Follow up: Jacob Roman; When: 2 - 3 days; Reason: Recheck today's complaints, Continuance of care, Re-evaluation by your physician. Problem is new. Symptoms have improved. paige
[2019-01-10 16:12] LABS: Urine Blood 3+ (NEG); Urine Glucose NEGATIVE (NEG); Urine Protein 2+ (NEG); Urine Specific Gravity >1.030 (1.005-1.030); Urine pH 5.5 (5.0-7.0)
[2019-01-10] MEDS ORDERED: CEFTRIAXONE/SWI 1gm 1 GM/10 ML SYR ONE (16:54)
[2019-01-10] MEDS ORDERED: TAMSULOSIN 0.4 MG SR CAP ONE (17:24)
[2019-01-10] MEDS ORDERED: Meropenem 1 GM/100 ML BAG ONE (17:24)
[2019-01-10 19:20] VITALS: TEMP 97.9
[2019-01-10 19:26] VITALS: O2SAT 100
[2019-01-10 19:27] VITALS: BP 143/68
--- NOTE | 2019-01-10 21:29 | CON ---
Mr. Denny has ESBL UTI and began his first dose of meropenem today, then he suddenly developed right flank pain. He was sent to the ER, where CT scan revealed 2 stones in the right UPJ, about 5 mm and 7 mm with minimal hydro. The patient has a very sensitive, so he does not want stent. He does not believe he will be able to take a stent in his bladder. He would rather try to pass them or come back next week for ESWL. Since he has been on daily aspirin dose, I have told him to stop his aspirin, continue doing his meropenem and we can try ESWL next week. He also has a history of very hard stones, which he says before they did not break, he just passed them. Allergies: TAPE. Past Medical History: Back pain, hypertension, prostate cancer. Past Surgical History: Status post radical retropubic prostatectomy, neck surgery, back surgery, appendectomy, cholecystectomy, hernia repair, bladder dilatation, cardiac stents. Immunizations: Up to date. Review of Systems: Ten-point review of systems otherwise normal. Physical Examination: Vital Signs: Afebrile, stable. HEENT: Atraumatic and normocephalic. He has a PICC line in his right arm. Chest: Clear. Abdomen: Soft, nontender. exam: Deferred for now. Extremities: Normal range of motion. Assessment: Two kidney stones in the right upper ureter, UPJ area, with minimal hydronephrosis. Stones are 5 mm and 7 mm. He also has some small bilateral kidney stones. The patient wants to go home on hydrocodone. He did not get his dose of meropenem tonight and wrote a RX for hydrocodone and Flomax , and follow up with me later on in the office this week for preop for extracorporeal shock wave lithotripsy. PB/MODL Voice ID: [id number] Report ID: [id number] HIMANSHU
== END 2019-01-10 17:52 | disposition home or self-care (01) ==
LOC: ER 13:32 → UNDOADMIN 15:39 → ERHOLD 15:39 → ER 17:52
DX: N13.2 Hydronephrosis with renal and ureteral calculous obstruction (principal); N30.90 Cystitis, unspecified without hematuria; I10 Essential (primary) hypertension; C61 Malignant neoplasm of prostate
CPT/HCPCS: 87088; 85025; 80048; 36415; 80076; 81003; 83690; 76377; 74176; 99284; J1170 ×3; J0696; J2185; J7030; J2405; 87086

== ENCOUNTER 2019-01-12 18:00 | Emergency (ER) | payer OTHER, BC ==
--- OUTSIDE RECORDS SUMMARY | 2019-01-12 18:03 | XMS REPORT | Continuity of Care Document ---
[...] Number For Provider Date Date Visit Outpatient [id number] CHANDRIKA 06/02 [facility] Outpatient [id number] CHANDRIKA 11/30 [facility] Procedures Procedure Code Date Perfomer Comments Source
--- OUTSIDE RECORDS SUMMARY | 2019-01-12 18:03 | XMS REPORT | Clinical Summary ---
:1945 Author Organization [facility] Address [address] [place] [address] Care Team Providers Name Role Phone Ralph [...] Giovanni NEUROSTIMULATOR ELECTRODES 01/15/2018 Anesthesia Event Laura aGuthier MD 01/15/2018 - Hospital Encounter General Internal Nitin Huggins Chronic pain syndrome; 01/16/2018 Medicine MD Giovanni Essential hypertension; Lumbar neuritis; S/P insertion of spinal cord stimulator 01/11/2018 Hospital Encounter Cardiology Nitin Huggins MD 01/11/2018 Hospital Encounter Pre-Admission Nitin Huggins MD 01/11/2018 Hospital Encounter Pre-Admission Nitin Huggins MD after 01/11/2018 Social History Tobacco Use Types Packs/Day Years [...] Not on file Implants Implanted Type Area Chemical Process Operator Device Shelf Model / Identifier Expiration Serial / Lot Date [facility] Full Strlprep 10ml [id number] - [id number] Cement/F N/A: MAHER: BIOSCI 06/02/2019 [id number] / Implanted: Qty: 1 on 01/15/2018 by Nitin Huggins MD iller/Ad Back / hesive [id number] Pump Lead Penta 3mm 60cm [id number] - [id number] Pain N/A: ST JARRETT 11/16/2019 [id number] / Implanted: Qty: 1 on 01/15/2018 by Nitin Huggins MD Mgmt/Sti Back MED: NEUROMODULAT [id number] / mulator ION Stim Neuro Proclaim 7 Elite - [id number] Pain N/A: ST JARRETT 11/05/2019 [id number] / Implanted: Qty: 1 on 01/15/2018 by Nitin Huggins MD Mgmt/Sti Back MED: NEUROMODULAT [id number] / mulator ION Procedures Procedure Name Priority Date/Time Associated Comments Diagnosis RHYTHM STRIP - SCAN 01/18/2018 1:20 PM CDT NEEDLE EMG, 2 EXTREMITY Routine 01/15/2018 2:00 Results for this PM CDT procedure are in the results section. [place] TERMITE HELPER IN OR 30 Routine 01/15/2018 1:15 Results for this MINUTE INCREMENTS PM CDT procedure are in the results section. PROCEDURE W/ 01/15/2018 10:50 Chronic pain INTRAOPERATIVE AM CDT syndrome NEUROMONITORING Lumbar neuritis Special Needs (C-ARM, NEURO- MONITORING: SSEP, NEUROSCOPE, [facility] JARRETT, ELIDA PURCHASING BUYER) PROCEDURE W/ C-ARM 01/15/2018 10:50 AM CDT Chronic pain syndrome Lumbar neuritis Special Needs (C-ARM, NEURO- MONITORING: SSEP, NEUROSCOPE, ST JARRETT, ELIDA PURCHASING BUYER) INSERTION,SPINAL CORD 01/15/2018 10:50 AM CDT Chronic pain syndrome NEUROSTIMULATOR Lumbar neuritis Special Needs (C-ARM, NEURO- MONITORING: SSEP, NEUROSCOPE, ST JARRETT, ELIDA PURCHASING BUYER) LAMINECTOMY,INSERTION 01/15/2018 10:50 AM Chronic pain syndrome NEUROSTIMULATOR ELECTRODES CDT Lumbar neuritis Special Needs (C-ARM, NEURO- MONITORING: SSEP, NEUROSCOPE, ST JARRETT, ELIDA PURCHASING BUYER) TRANSFUSION SERVICE REPORT - SCAN 01/12/2018 5:56 PM CDT ECG 12-LEAD Routine 01/11/2018 8:28 AM CDT Procedure Note - Interface, External Ris In - 01/11/2018 8:55 AM CDT Ventricular Rate 66 BPM Atrial Rate 66 BPM P-R Interval 148 ms QRS Duration 72 ms Q-T Interval 392 ms QTC Calculation(Bazett) 410 ms P [place] 29 degrees R [place] 14 degrees T [place] 37 degrees Normal sinus rhythm Nonspecific T [...] procedure are in the results section. after 01/11/2018 Results RHYTHM STRIP - SCAN (01/18/2018 1:20 PM CDT) Narrative Performed At NEEDLE EMG, 2 EXTREMITY (01/15/2018 2:00 PM CDT) Specimen Narrative Performed At INTRAOPERATIVE MONITORING REPORT GE RIS Patient Name: Cas Denny [facility] Surgery Date: 01/15/18 [place] Pro: [id number] Monitoring began at 11:40 a.m and ended [...] of this surgical procedure. Sonido Milan M.D., [facility], [facility], FAES G89.4, M54.16 Procedure Note Interface, External Ris In - 01/18/2018 4:14 PM CDT INTRAOPERATIVE MONITORING REPORT Patient Name: Cas Denny [facility] Surgery Date: 01/15/18 [place] Pro: [id number] Monitoring began at 11:40 a.m and ended [...] M54.16 Performing Organization Address City/State/Zipcode Phone Number [facility] [place] equities trader in or 30 minute increments (01/15/2018 1:15 PM CDT) Specimen Narrative Performed At FINAL REPORT [facility] Fluoroscopy 1 view intraoperative 01/15/2018 2:13 PM CLINICAL HISTORY: Instrument localization COMPARISON: None available IMPRESSION: Please correlate imaging report findings with the procedure note prepared by Dr. Huggins, as an intra-procedure imaging consultation was not requested. Reported fluoroscopy time: 29.9 seconds. Signed: John Ortiz MD Report Verified Date/Time:01/15/2018 14:19:13 Reading Location: [facility] C0[facility] Consult Reading Room Procedure Note Interface, External [...] Report Verified Date/Time: 01/15/2018 14:19:13 Reading Location: [address] Consult Reading Room Performing Organization Address City/State/Zipcode Phone Number GE RIS TRANSFUSION SERVICE REPORT - SCAN (01/12/2018 5:56 PM CDT) Narrative Performed At ECG 12 lead (01/11/2018 8:28 AM CDT) Specimen Narrative Performed At Ventricular Rate 66 BPM GE MUSE Atrial Rate 66 BPM P-R Interval 148 ms QRS Duration 72 ms Q-T Interval 392 ms QTC Calculation(Bazett) 410 ms P [place] 29 degrees R [place] 14 degrees T [place] 37 degrees Normal sinus rhythm Nonspecific T wave abnormality Abnormal ECG No previous ECGs available Confirmed by MD POPPY, AB ([id number]) on 01/11/2018 9:43:25 PM Procedure Note Interface, External Ris In - 01/11/2018 9:43 PM CDT Ventricular Rate 66 BPM Atrial Rate 66 BPM P-R Interval 148 ms QRS Duration 72 ms Q-T Interval 392 ms QTC Calculation(Bazett) 410 ms P [place] 29 degrees R [place] 14 degrees T [place] 37 degrees Normal sinus rhythm Nonspecific T wave abnormality Abnormal ECG No previous ECGs available Confirmed by MD POPPY, IHAB ([id number]) on 01/11/2018 9:43:25 PM Performing Organization Address City/State/Zipcode Phone Number GE MUSE Type and screen, automated (01/11/2018 8:26 AM CDT) ABO/RH AUTOMATED (BEAKER) A NEGATIVE [facility] Ab Scrn NEGATIVE [facility] Specimen Blood Performing Organization Address City/State/Zipcode Phone Number [facility] [address] [place] [address] HIV-1 Antigen with HIV-1/2 Antibody (01/11/2018 8:26 AM CDT) HIV-1 Antigen with HIV 1&2 NON-REACTIVE Nonreactive [facility] Antibody MEDICAL CENTER Specimen Blood Performing Organization Address City/State/Zipcode Phone Number [facility] [address] [place] [address] CENTER CBC with platelet count + automated diff (01/11/2018 8:26 AM CDT) WBC 10.1 3.5 - 10.5 K/L [facility] RBC 4.87 4.63 - 6.08 M/L [facility] Hemoglobin 14.6 13.7 - 17.5 GM/DL [facility] Hematocrit 46.1 40.1 - 51.0 % [facility] MCV 94.7 (H) 79.0 - 92.2 fL [facility] MCH 30.0 25.7 - 32.2 pg [facility] MCHC 31.7 (L) 32.3 - 36.5 GM/DL [facility] RDW 12.7 11.6 - 14.4 % [facility] Platelets 286 150 - 450 K/CU MM [facility] MPV 10.1 9.4 - 12.4 fL [facility] nRBC 0 0 - 0 /100 WBC [facility] % Neutros 61 % [facility] % Lymphs 27 % [facility] % Monos 9 % [facility] % Eos 3 % [facility] % Baso 1 % [facility] # Neutros 6.16 (H) 1.78 - 5.38 K/L [facility] # Lymphs 2.73 1.32 - 3.57 K/L [facility] # Monos 0.89 (H) 0.30 - 0.82 K/L [facility] # Eos 0.25 0.04 - 0.54 K/L [facility] # Baso 0.07 0.01 - 0.08 K/L [facility] Immature Granulocytes-Relative 0 0 - 1 % [facility] Specimen Blood Performing Organization Address [facility] Phone Number [address] [address] [phone] CENTER Prothrombin time/INR (01/11/2018 8:26 AM CDT) Protime 13.8 11.7 - 14.7 seconds [facility] INR 1.1 <=5.9 [facility] Specimen Blood Narrative Performed At [facility] RECOMMENDED COUMADIN/WARFARIN INR THERAPY RANGES STANDARD DOSE: 2.0 - 3.0 Includes: PROPHYLAXIS for venous thrombosis, systemic embolization; TREATMENT for venous thrombosis and/or pulmonary embolus. HIGH RISK: Target INR is 2.5-3.5 for patients with mechanical heart valves. Performing Organization Address [facility] Phone Number [address] [address] [phone] CENTER Glucose (01/11/2018 8:26 AM CDT) Glucose 126 (H) 70 - 105 mg/dL [facility] Specimen Blood Performing Organization Address [facility] Phone Number [address] [address] CENTER Basic Metabolic Panel (01/11/2018 8:26 AM CDT) Sodium 142 136 - 145 meq/L [facility] Potassium 4.1 3.5 - 5.1 meq/L [facility] Chloride 106 98 - 107 meq/L [facility] CO2 28 22 - 29 meq/L [facility] BUN 21 7 - 21 mg/dL [facility] Creatinine 1.06 0.57 - 1.25 mg/dL [facility] Glucose 126 (H) 70 - 105 mg/dL [facility] Calcium 9.5 8.4 - 10.2 mg/dL [facility] EGFR 68Comment: ESTIMATED GFR IS mL/min/1.73 sq m [facility] NOT ACCURATE CREATININE [facility] CLEARANCE IN PREDICTING GLOMERULAR FILTRATION RATE. ESTIMATED GFR IS NOT APPLICABLE FOR DIALYSIS PATIENTS. Specimen Blood Performing Organization Address City/State/Zipcode Phone Number [facility] [address] [place] [address] CENTER after 01/11/2018 Insurance Payer Benefit Plan / Subscriber ID Type Phone Address Group MEDICARE MEDICARE A B xxxxxxxxxx Medicare BLUE CROSS/BLUE [place] xxxxxxxxxxxx [facility] [phone] [address] [facility] [place] [address] (Home) [place] [address] Advance Directives For more information, please contact:[facility] [place] [address] [phone] Code Status Date Activated Date Inactivated Comments Full Code 01/15/2018 6:59 PM 01/16/2018 2:13 PM This code status was determined by: Patient Full Code 01/15/2018 8:21 AM 01/15/2018 6:59 PM This code status was determined by: Patient
--- OUTSIDE RECORDS SUMMARY | 2019-01-12 18:03 | XMS REPORT ---
:1945 [facility] Address [address] [place] [address] Dr. Clements [address] [place] [address] Care Team Providers Name Role Phone EDILBERTO HUGGINS Unavailable Unavailable Problems This patient has no known problems. Allergies, Adverse Reactions, Alerts This patient has no known allergies or adverse reactions. Medications This patient has no known medications. Results Test Description Test Time Test Comments Text Results Atomic Results Result Comments NEEDLE EMG, 2 2018-01-18 INTRAOPERATIVE MONITORING REPORT EXTREMITY 16:14:00 Patient Name: Toro Rodriguez [facility] Surgery Date: 01/15/18 [place] Pro: [id number] Monitoring began at 11:40 a.m and ended [...] Sonido Milan M.D., FACNS, FAAN, FAESG89.4, M54.16 [facility] ALARM SIGNALER IN 2018-01-15 Reason for FINAL REPORT OR/30 [...] MDReport Verified Date/Time: 01/15/2018 14:19:13 Reading Location: [address] Consult Reading Room -1 ANTIGEN WITH HIV-1/2 ANTIBODY 2018-01-11 09:49:00 Test Item Value Reference Range Comments HIV-1 ANTIGEN WITH HIV 1\T\2 ANTIBODY (2) (BEAKER) (test Nonreactive Nonreactive bewj=2099) [id number] 09:32:00 Test Item Value Reference Range Comments GLUCOSE RANDOM (BEAKER) (test otxp=542) 126 mg/dL 70-105 BASIC METABOLIC [id number] 09:32:00 Test Item Value Reference Range Comments SODIUM (BEAKER) (test 142 meq/L 136-145 aqbr=131) POTASSIUM (BEAKER) (test 4.1 meq/L 3.5-5.1 ftsa=718) CHLORIDE (BEAKER) (test 106 meq/L 98-107 hobe=086) CO2 (BEAKER) (test 28 meq/L 22-29 urac=178) BLOOD UREA NITROGEN 21 mg/dL 7-21 (BEAKER) (test kcgb=318) CREATININE (BEAKER) (test 1.06 mg/dL 0.57-1.25 dfrr=917) GLUCOSE RANDOM (BEAKER) 126 mg/dL 70-105 (test bhqv=760) CALCIUM (BEAKER) (test 9.5 mg/dL 8.4-10.2 ibem=005) EGFR (BEAKER) (test 68 mL/min/1.73 sq m ESTIMATED GFR IS NOT uknd=4767) ACCURATE CREATININE CLEARANCE IN PREDICTING GLOMERULAR FILTRATION RATE. ESTIMATED GFR IS NOT APPLICABLE FOR DIALYSIS PATIENTS. PROTHROMBIN TIME/[id number] 09:29:00 Test Item Value Reference Range Comments PROTIME (BEAKER) (test zamn=204) 13.8 seconds 11.7-14.7 INR (BEAKER) (test tkhw=476) 1.1 <=5.9 RECOMMENDED COUMADIN/WARFARIN INR THERAPY RANGESSTANDARD DOSE: 2.0 - 3.0 Includes: PROPHYLAXIS forvenous thrombosis, systemic embolization; TREATMENT for venous thrombosis and/or pulmonary embolus.HIGH RISK: Target INR is 2.5-3.5 for patients with mechanical heart valves.CBC W/PLT COUNT & AUTO [id number] 09:19:00 Test Item Value Reference Range Comments WHITE BLOOD CELL COUNT (BEAKER) (test iarf=432) 10.1 K/ L 3.5-10.5 RED BLOOD CELL COUNT (BEAKER) (test icmv=110) 4.87 M/ L 4.63-6.08 HEMOGLOBIN (BEAKER) (test wrou=081) 14.6 GM/DL 13.7-17.5 HEMATOCRIT (BEAKER) (test smis=675) 46.1 % 40.1-51.0 MEAN CORPUSCULAR VOLUME (BEAKER) (test yihd=929) 94.7 fL 79.0-92.2 MEAN CORPUSCULAR HEMOGLOBIN (BEAKER) (test 30.0 pg 25.7-32.2 sznl=293) MEAN CORPUSCULAR HEMOGLOBIN CONC (BEAKER) (test 31.7 GM/DL 32.3-36.5 sfgl=024) RED CELL DISTRIBUTION WIDTH (BEAKER) (test 12.7 % 11.6-14.4 fnli=403) PLATELET COUNT (BEAKER) (test smqf=426) 286 K/CU MM 150-450 MEAN PLATELET VOLUME (BEAKER) (test olys=079) 10.1 fL 9.4-12.4 NUCLEATED RED BLOOD CELLS (BEAKER) (test 0 /100 WBC 0-0 sdem=552) NEUTROPHILS RELATIVE PERCENT (BEAKER) (test 61 % hzkd=941) LYMPHOCYTES RELATIVE PERCENT (BEAKER) (test 27 % ykmy=263) MONOCYTES RELATIVE PERCENT (BEAKER) (test 9 % ztbm=844) EOSINOPHILS RELATIVE PERCENT (BEAKER) (test 3 % mvrs=671) BASOPHILS RELATIVE PERCENT (BEAKER) (test 1 % hudx=191) NEUTROPHILS ABSOLUTE COUNT (BEAKER) (test 6.16 K/ L 1.78-5.38 tyfq=951) LYMPHOCYTES ABSOLUTE COUNT (BEAKER) (test 2.73 K/ L 1.32-3.57 xooc=215) MONOCYTES ABSOLUTE COUNT (BEAKER) (test 0.89 K/ L 0.30-0.82 svji=334) EOSINOPHILS ABSOLUTE COUNT (BEAKER) (test 0.25 K/ L 0.04-0.54 uftd=796) BASOPHILS ABSOLUTE COUNT (BEAKER) (test 0.07 K/ L 0.01-0.08 ueup=373) IMMATURE GRANULOCYTES-RELATIVE PERCENT (BEAKER) 0 % 0-1 (test obvv=3650)
[2019-01-12] MEDS ORDERED: MORPHINE 4 MG/ML SYR ONE ×2 (19:10→19:52)
[2019-01-12] MEDS ORDERED: ONDANSETRON 4 MG/2 ML VIAL ONE (19:10)
[2019-01-12 19:20] LABS: Absolute Lymphocytes (CBC) 1.4 K/uL (0.7-4.9); Absolute Monocytes 1.2 K/uL (0.1-1.3); Absolute Neutrophil 7.5 K/uL (1.8-8.0); Basophils % 0.9 % (0-1.3); Eosinophils % 0.6 % (0-4.4); Hematocrit 38.2 % (39.6-49.0); Lymphocytes % 13.6 % (15.3-44.8); MPV 8.6 fL (7.6-11.3); Monocytes % 11.7 % (3.3-12.3); RBC Red Blood Cell Count 4.22 M/uL (4.33-5.43)
[2019-01-12 19:30] LABS: Albumin 2.8 g/dL (3.4-5.0); Bilirubin Direct 0.1 mg/dL (0-0.2); Bilirubin Total 0.5 mg/dL (0.2-1.0); Potassium 3.7 mmol/L (3.5-5.1); Protein, Total 5.9 g/dL (6.4-8.2)
--- NOTE | 2019-01-12 20:12 | RAD REPORT ---
EXAM DESCRIPTION: CT - Stone Protocol - 01/12/2019 7:55 pm CLINICAL HISTORY: Abdominal pain, right flank pain COMPARISON: January 10, 2019 TECHNIQUE: Axial 5 mm thick images were obtained without oral or IV contrast. The kecti-rq-drvr span s the entirety of the system including uppermost abdomen and lung bases. All CT scans are performed using dose optimization technique as appropriate and may include automated exposure control or mA/KV adjustment according to patient size. FINDINGS: Chronic stranding is present in both lung bases. No acute lung base finding. No pericardia l thickening or effusion. Right-sided hydronephrosis is present with severity of dilatation unchanged from January 10. Prior study s howed 2 calcifications near the UPJ on the right. The proximal 5 mm stone has migrated approximately 1 centimeter since the January 10 study. The more distal 7 mm stone has migrated approximately 2 cm. No ad ditional right ureteral stone or stone fragment. No suspicious renal masses. Isodense masses and pyel onephritis are not excluded on a stone protocol CT scan. No urinary bladder suspicious finding. No si gnificant adrenal finding. Imaged portions of the liver, spleen and pancreas show no suspicious findings on non-contrast imaging . Cholecystectomy clips are present. No biliary tree dilatation. No additional new findings from January 10 study. IMPRESSION: Hydronephrosis of the pelvis and calices on the right is similar to the January 10 study. Prior study shows 2 obstructing calculi at the right UPJ. The more superior stone has migrated 1 cent imeter since prior imaging. The distal stone has migrated 2 cm since prior imaging. Isodense masses and pyelonephritis are not excluded on stone protocol technique.
[2019-01-12] MEDS ORDERED: HYDROMORPHONE HCL 1 MG/ML INJ ONE (20:44)
[2019-01-12 20:50] LABS: Urine Blood 3+ (NEG); Urine Glucose NEGATIVE (NEG); Urine Protein 2+ (NEG); Urine Specific Gravity 1.025 (1.005-1.030); Urine pH 5.5 (5.0-7.0)
[2019-01-12] MEDS ORDERED: ACETAMINOPHEN 500 MG TAB ONE (20:59)
--- NOTE | 2019-01-12 21:19 | EDPHYS ---
Physician Documentation [facility] Name: Cas Denny Age: 73 yrs Sex: Male : 1945 Arrival Date: 01/12/2019 Time: 18:01 Bed 18 Private MD: Santana Bernstein R ED Physician Nathan Edwards HPI: 01/12 18:31 This 73 yrs old Male presents to ER via Ambulatory with complaints of jmm Possible Kidney Stone. 18:31 The patient complains of pain in the right flank. Onset: The symptoms/episode jmm began/occurred gradually, 1 week(s) ago. Modifying factors: The symptoms are alleviated by nothing. the symptoms are aggravated by nothing. Associated signs and symptoms: Pertinent positives: nausea. This is a 73 year old male with a history of chronic pain, htn that presents to the ED with complaints of worsening right flank pain over the past week worsening since Thursday. patient is currently on IV meropenem for a chronic UTI and is under the care of Dr. Roman for his kidney stones. . Historical: - Allergies: 18:22 Tape; ph - PMHx: 18:22 Back pain; Hypertension; Prostate Cancer; ph - PSHx: 18:22 neck surgery; back surgery; Appendectomy; Cholecystectomy; prostatectomy; Hernia ph repair; bladder dilation; DVR stimulator; Heart stents; - Immunization history:: Adult Immunizations up to date. - Ebola Screening: : No symptoms or risks identified at this time. - Social history:: Smoking status: Patient/guardian denies using tobacco. ROS: 18:31 Constitutional: Negative for fever, chills, and weight loss, Cardiovascular: Negative jmm for chest pain, palpitations, and edema, Respiratory: Negative for shortness of breath, cough, wheezing, and pleuritic chest pain. 18:31 Back: Negative for injury and pain, MS/Extremity: Negative for injury and deformity, Skin: Negative for injury, rash, and discoloration, Neuro: Negative for headache, weakness, numbness, tingling, and seizure. 18:31 Abdomen/GI: Positive for abdominal pain. 18:31 Back: Positive for flank pain, bilaterally. 18:31 All other systems are negative. Exam: 18:31 Head/Face: atraumatic. Eyes: EOMI, no conjunctival erythema appreciated ENT: Moist jmm Mucus Membranes Neck: Trachea midline, Supple Chest/axilla: Normal chest wall appearance and motion. Cardiovascular: Regular rate and rhythm. No edema appreciated Respiratory: Normal respirations, no respiratory distress appreciated 18:31 Constitutional: The patient appears alert, awake, uncomfortable. 18:31 Abdomen/GI: Inspection: abdomen appears normal, Bowel sounds: normal, Palpation: soft, mild abdominal tenderness, in the right lower quadrant. 18:31 Back: ROM is normal, CVA tenderness, that is moderate, is noted on the right, is noted on the left. 18:31 Musculoskeletal/extremity: ROM: intact in all extremities. 18:31 Skin: Appearance: Color: normal in color. 18:31 Neuro: Orientation: is normal, Mentation: is normal, Memory: is normal. 18:31 Psych: Behavior/mood is pleasant, cooperative. Vital Signs: 18:22 BP 143 / 65; Pulse 88; Resp 18; Temp 98.3; Pulse Ox 95% on R/A; Weight 71.67 kg; Height ph 5 ft. 8 in. (172.72 cm); Pain 10/10; 19:15 BP 135 / 69; Pulse 78; Resp 18; Pulse Ox 94% on R/A; Pain 10/10; lp1 20:15 BP 135 / 58; Pulse 83; Resp 18; Pulse Ox 94% on R/A; lp1 20:30 BP 124 / 48; Pulse 83; Resp 18; Temp 100.1(O); Pulse Ox 94% on R/A; Pain 6/10; lp1 21:10 BP 122 / 48; Pulse 80; Resp 18; Temp 100(O); Pulse Ox 94% on R/A; Pain 3/10; lp1 18:22 Body Mass Index 24.02 (71.67 kg, 172.72 cm) ph MDM: 18:31 Patient medically screened. [facility] 21:18 Data reviewed: vital signs, nurses notes. Refusal of service: The patient/guardian angela displays adequate decision making capability and despite a detailed discussion of alternatives, benefits, risks, and consequences refuses: Admission to the hospital for further work-up and treatment. 21:18 ED course: I discussed with the patient the need for admission due to fever, infection angela and ureterolithiasis. Patient made of aware of possible risks. Patient declined. . 01/12 18:41 Order name: Basic Metabolic Panel; Complete Time: 19:32 [facility] 01/12 18:41 Order name: CBC with Diff; Complete Time: 19:32 [facility] 01/12 18:41 Order name: Creatinine for Radiology; Complete Time: 19:32 [facility] 01/12 18:41 Order name: Hepatic Function; Complete Time: 19:32 [facility] 01/12 18:41 Order name: Lipase; Complete Time: 19:32 [facility] 01/12 20:38 Order name: Urine Dipstick--Ancillary (enter results); Complete Time: 21:07 [facility] 01/12 18:41 Order name: IV Saline Lock; Complete Time: 20:44 [facility] 01/12 18:41 Order name: Labs collected and sent; Complete Time: 18:44 [facility] 01/12 18:41 Order name: CT Stone Protocol; Complete Time: 20:14 [facility] 01/12 18:41 Order name: Urine Dipstick-Ancillary (obtain specimen); Complete Time: 20:44 jmm Administered Medications: 18:40 Drug: morphine 4 mg Route: IVP; Site: PICC; sg 19:49 Follow up: Response: Pain is unchanged, physician notified lp1 18:40 Drug: Zofran 4 mg Route: IVP; Site: PICC; sg 19:49 Follow up: Response: No adverse reaction lp1 19:49 Drug: morphine 4 mg {Note: R upper arm.} Route: IVP; Site: PICC; lp1 20:25 Follow up: Response: Pain is decreased lp1 20:35 Drug: Dilaudid 1 mg Route: IVP; Site: PICC; lp1 21:00 Follow up: Response: Pain is decreased lp1 20:47 Drug: Tylenol 1000 mg Route: PO; lp1 21:15 Follow up: Response: No adverse reaction lp1 Disposition: 01/13 07:01 Co-signature as Attending Physician, Nathan Edwards MD I agree with the assessment and kdr plan of care. Disposition: 01/12/19 21:19 Discharged to Home. Impression: Calculus of kidney and ureter, Urinary tract infection, site not specified. - Condition is Stable. - Discharge Instructions: Kidney Stones, Urinary Tract Infection, Adult. - Medication Reconciliation Form, Thank You Letter, Antibiotic Education, Prescription Opioid Use form. - Follow up: Santana Bernstein MD; When: 1 - 2 days; Reason: Recheck today's complaints, Continuance of care, Re-evaluation by your physician. Signatures: Dispatcher [employer] EDOsbaldo Claire, RN RN Nathan Edwards MD MD kdr Mickail, Joel, PA PA [facility] Gema Watkins RN RN lp1 Anu Mcgregor RN RN ph Corrections: (The following items were deleted from the chart) 01/12 20:15 20:15 Social history: Smoking status: Patient uses tobacco products, smokes one pack lp1 cigarettes per day. lp1 20:15 20:15 Immunization history: Adult Immunizations up to date, lp1 lp1 21:33 21:19 01/12/2019 21:19 Discharged to Home. Impression: Calculus of kidney and ureter; lp1 Urinary tract infection, site not specified. Condition is Stable. Forms are Medication Reconciliation Form, Thank You Letter, Antibiotic Education, Prescription Opioid Use. Follow up: Santana Bernstein; When: 1 - 2 days; Reason: Recheck today's complaints, Continuance of care, Re-evaluation by your physician. [facility]
--- NOTE | 2019-01-12 21:19 | ER ---
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 Transition of care: patient was not received from another setting of care. Onset of symptoms was January 12, 2019. Risk Assessment: Do you want to hurt yourself or someone else? Patient reports no desire to harm self or others. Initial Sepsis Screen: Does the patient meet any 2 criteria? No. Patient's initial sepsis screen is negative. Does the patient have a suspected source of infection? No. Patient's initial sepsis screen is negative. Care prior to arrival: None. 18:17 Method Of Arrival: Ambulatory ph 18:17 Acuity: MIRZA 3 ph Historical: - Allergies: 18:22 Tape; ph - PMHx: 18:22 Back pain; Hypertension; Prostate Cancer; ph - PSHx: 18:22 neck surgery; back surgery; Appendectomy; Cholecystectomy; prostatectomy; Hernia ph repair; bladder dilation; DVR stimulator; Heart stents; - Immunization history:: Adult Immunizations up to date. - Ebola Screening: : No symptoms or risks identified at this time. - Social history:: Smoking status: Patient/guardian denies using tobacco. Screenin:25 Abuse screen: Denies threats or abuse. Denies injuries from another. Nutritional sg screening: No deficits noted. Tuberculosis screening: No symptoms or risk factors identified. Fall Risk None identified. Assessment: 18:30 General: Appears in no apparent distress. well groomed, well developed, well nourished, sg Behavior is calm, cooperative, appropriate for age. Pain: Complains of pain in left mid back and right mid back Quality of pain is described as aching, sharp, stabbing. Neuro: Level of Consciousness is awake, alert, obeys commands, Oriented to person, place, time, situation, Speech is normal, Facial symmetry appears normal. Cardiovascular: Capillary refill is brisk in bilateral fingers Patient's skin is warm and dry. Chest pain is denied. Respiratory: Respiratory effort is even, unlabored, Respiratory pattern is regular, symmetrical. GI: Abdomen is round non-distended, Bowel sounds present X 4 quads. Abd is soft and non tender X 4 quads. GI: Reports nausea, tolerance of fluids, tolerance of food. : Reports pain in bilateral flank(s). EENT: No signs and/or symptoms were reported regarding the EENT system. Derm: Skin is dry, Skin is pale, Skin temperature is warm. Musculoskeletal: Circulation, motion, and sensation intact. Range of motion: intact in all extremities. 19:10 General: Appears uncomfortable, Behavior is restless. Pain: Complains of pain in right lp1 low back and right lower quadrant Pain radiates to suprapubic area Pain currently is 10 out of 10 on a pain scale. Neuro: Level of Consciousness is awake, alert, obeys commands. Respiratory: Respiratory effort is even, unlabored. Derm: Skin is intact, Skin is dry, Skin is normal, Skin temperature is warm. 19:10 : Reports pain in right flank(s). lp1 20:16 Reassessment: Patient appears in no apparent distress at this time. Patient and/or lp1 family updated on plan of care and expected duration. Pain level reassessed. Reassessment: Patient states symptoms have improved. General: Behavior is calm. 21:10 Reassessment: Patient appears in no apparent distress at this time. Patient and/or lp1 family updated on plan of care and expected duration. Pain level reassessed. Patient is alert, oriented x 3, equal unlabored respirations, skin warm/dry/pink. Patient states feeling better. Patient states symptoms have improved. Vital Signs: 18:22 BP 143 / 65; Pulse 88; Resp 18; Temp 98.3; Pulse Ox 95% on R/A; Weight 71.67 kg; Height ph 5 ft. 8 in. (172.72 cm); Pain 10/10; 19:15 BP 135 / 69; Pulse 78; Resp 18; Pulse Ox 94% on R/A; Pain 10/10; lp1 20:15 BP 135 / 58; Pulse 83; Resp 18; Pulse Ox 94% on R/A; lp1 20:30 BP 124 / 48; Pulse 83; Resp 18; Temp 100.1(O); Pulse Ox 94% on R/A; Pain 6/10; lp1 21:10 BP 122 / 48; Pulse 80; Resp 18; Temp 100(O); Pulse Ox 94% on R/A; Pain 3/10; lp1 18:22 Body Mass Index 24.02 (71.67 kg, 172.72 cm) ph ED Course: 18:01 Patient arrived in ED. as 18:02 Santana Bernstein MD is Private Physician. as 18:08 Osbaldo Mendieta, RN is Primary Nurse. sg 18:17 Harshad [facility]yra [facility] is [facility] 18:17 Nathan Edwards MD is Attending Physician. [facility] 18:18 Triage completed. ph 18:22 Arm band placed on Patient placed in an exam room, on a stretcher. ph 18:25 No provider procedures requiring assistance completed. Accessed PICC line. Clean \T\ dry. sg Dressing intact. Good blood return. Flushes easily. 18:30 Initial lab(s) drawn, by me, sent to lab. sg 19:56 CT Stone Protocol In Process Unspecified. EDMS 20:13 Patient has correct armband on for positive identification. Pulse ox on. NIBP on. lp1 21:15 PICC line to R upper arm flushes easily, blood return noted. lp1 21:18 Santana Bernstein MD is Referral Physician. [facility] Administered Medications: 18:40 Drug: morphine 4 mg Route: IVP; Site: PICC; sg 19:49 Follow up: Response: Pain is unchanged, physician notified lp1 18:40 Drug: Zofran 4 mg Route: IVP; Site: PICC; sg 19:49 Follow up: Response: No adverse reaction lp1 19:49 Drug: morphine 4 mg {Note: R upper arm.} Route: IVP; Site: PICC; lp1 20:25 Follow up: Response: Pain is decreased lp1 20:35 Drug: Dilaudid 1 mg Route: IVP; Site: PICC; lp1 21:00 Follow up: Response: Pain is decreased lp1 20:47 Drug: Tylenol 1000 mg Route: PO; lp1 21:15 Follow up: Response: No adverse reaction lp1 Outcome: 21:19 Discharge ordered by . angela 21:32 Discharged to home via wheelchair, with family. lp1 21:32 Condition: good 21:32 Discharge instructions given to patient, Instructed on discharge instructions, follow up and referral plans. Demonstrated understanding of instructions, follow-up care. 21:33 Patient left the ED. lp1 Signatures: Dispatcher [employer] EDOsbaldo Claire RN RN Harshad Vieyra PA PA jmm Martinez, Amelia as Pena, Laura RN RN lp1 Anu Mcgregor RN RN ph Corrections: (The following items were deleted from the chart) 19:45 18:34 morphine 4 mg IVP in right upper arm sg sg 20:15 20:15 Social history: Smoking status: Patient uses tobacco products, smokes one pack lp1 cigarettes per day. lp1 20:15 20:15 Immunization history: Adult Immunizations up to date, lp1 lp1
[2019-01-12 21:47] VITALS: O2SAT 94
[2019-01-12 21:52] VITALS: BP 122/48; TEMP 100
== END 2019-01-12 21:33 | disposition home or self-care (01) ==
LOC: ER 18:00
DX: N20.2 Calculus of kidney with calculus of ureter (principal); N39.0 Urinary tract infection, site not specified; I10 Essential (primary) hypertension; Z85.46 Personal history of malignant neoplasm of prostate; Z91.048 Other nonmedicinal substance allergy status; Z95.818 Presence of other cardiac implants and grafts
CPT/HCPCS: 85025; 80048; 36415; 80076; 81003; 83690; 76377; 74176; 96375; 96374; 99284; J1170; J2405

== ENCOUNTER 2019-01-13 11:23 | Day surgery (SDC) | payer OTHER, BC ==
--- OUTSIDE RECORDS SUMMARY | 2019-01-13 11:29 | XMS REPORT ---
:1945 [facility] Address [address] [place] [address] Dr. 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 Reason for FINAL REPORT OR/30 [...] MDReport Verified Date/Time: 01/15/2018 14:19:13 Reading Location: [address] Consult Reading Room -1 ANTIGEN WITH HIV-1/2 ANTIBODY 2018-01-11 09:49:00 Test Item Value Reference Range Comments HIV-1 ANTIGEN WITH HIV 1\T\2 ANTIBODY (2) (BEAKER) (test Nonreactive Nonreactive ttbj=0138) [id number] 09:32:00 Test Item Value Reference Range Comments GLUCOSE RANDOM (BEAKER) (test zwew=327) 126 mg/dL 70-105 BASIC METABOLIC [id number] 09:32:00 Test Item Value Reference Range Comments SODIUM (BEAKER) (test 142 meq/L 136-145 fzah=274) POTASSIUM (BEAKER) (test 4.1 meq/L 3.5-5.1 eixa=723) CHLORIDE (BEAKER) (test 106 meq/L 98-107 tvqx=836) CO2 (BEAKER) (test 28 meq/L 22-29 pxmv=313) BLOOD UREA NITROGEN 21 mg/dL 7-21 (BEAKER) (test crgc=434) CREATININE (BEAKER) (test 1.06 mg/dL 0.57-1.25 lcrl=593) GLUCOSE RANDOM (BEAKER) 126 mg/dL 70-105 (test peiz=547) CALCIUM (BEAKER) (test 9.5 mg/dL 8.4-10.2 oosi=762) EGFR (BEAKER) (test 68 mL/min/1.73 sq m ESTIMATED GFR IS NOT ycuu=4910) ACCURATE CREATININE CLEARANCE IN PREDICTING GLOMERULAR FILTRATION RATE. ESTIMATED GFR IS NOT APPLICABLE FOR DIALYSIS PATIENTS. PROTHROMBIN TIME/[id number] 09:29:00 Test Item Value Reference Range Comments PROTIME (BEAKER) (test ifom=903) 13.8 seconds 11.7-14.7 INR (BEAKER) (test dhsp=161) 1.1 <=5.9 RECOMMENDED COUMADIN/WARFARIN INR THERAPY RANGESSTANDARD DOSE: 2.0 - 3.0 Includes: PROPHYLAXIS forvenous thrombosis, systemic embolization; TREATMENT for venous thrombosis and/or pulmonary embolus.HIGH RISK: Target INR is 2.5-3.5 for patients with mechanical heart valves.CBC W/PLT COUNT & AUTO [id number] 09:19:00 Test Item Value Reference Range Comments WHITE BLOOD CELL COUNT (BEAKER) (test yrwh=382) 10.1 K/ L 3.5-10.5 RED BLOOD CELL COUNT (BEAKER) (test ngad=141) 4.87 M/ L 4.63-6.08 HEMOGLOBIN (BEAKER) (test xmdr=888) 14.6 GM/DL 13.7-17.5 HEMATOCRIT (BEAKER) (test nhuv=557) 46.1 % 40.1-51.0 MEAN CORPUSCULAR VOLUME (BEAKER) (test sjen=307) 94.7 fL 79.0-92.2 MEAN CORPUSCULAR HEMOGLOBIN (BEAKER) (test 30.0 pg 25.7-32.2 rbta=153) MEAN CORPUSCULAR HEMOGLOBIN CONC (BEAKER) (test 31.7 GM/DL 32.3-36.5 sohs=811) RED CELL DISTRIBUTION WIDTH (BEAKER) (test 12.7 % 11.6-14.4 nqve=429) PLATELET COUNT (BEAKER) (test wefc=232) 286 K/CU MM 150-450 MEAN PLATELET VOLUME (BEAKER) (test zuod=407) 10.1 fL 9.4-12.4 NUCLEATED RED BLOOD CELLS (BEAKER) (test 0 /100 WBC 0-0 fnvm=090) NEUTROPHILS RELATIVE PERCENT (BEAKER) (test 61 % amay=124) LYMPHOCYTES RELATIVE PERCENT (BEAKER) (test 27 % nkug=910) MONOCYTES RELATIVE PERCENT (BEAKER) (test 9 % aklo=611) EOSINOPHILS RELATIVE PERCENT (BEAKER) (test 3 % myhi=442) BASOPHILS RELATIVE PERCENT (BEAKER) (test 1 % swvt=540) NEUTROPHILS ABSOLUTE COUNT (BEAKER) (test 6.16 K/ L 1.78-5.38 zlrc=994) LYMPHOCYTES ABSOLUTE COUNT (BEAKER) (test 2.73 K/ L 1.32-3.57 gljn=335) MONOCYTES ABSOLUTE COUNT (BEAKER) (test 0.89 K/ L 0.30-0.82 ulkv=262) EOSINOPHILS ABSOLUTE COUNT (BEAKER) (test 0.25 K/ L 0.04-0.54 nstd=429) BASOPHILS ABSOLUTE COUNT (BEAKER) (test 0.07 K/ L 0.01-0.08 hqoh=109) IMMATURE GRANULOCYTES-RELATIVE PERCENT (BEAKER) 0 % 0-1 (test fecx=6609)
--- OUTSIDE RECORDS SUMMARY | 2019-01-13 11:29 | XMS REPORT | Clinical Summary ---
:1945 Author Organization [facility] Address [address] [place] [address] Care Team Providers Name Role Phone [place] [...] neuritis; S/P insertion of spinal cord stimulator after 01/12/2018 Social History Tobacco Use Types Packs/Day Years [...] Not on file Implants Implanted Type Area Flight Physician Device Shelf Model / Identifier Expiration Serial / Lot Date [facility] Full Strlprep 10ml [id number] - [id number] Cement/F N/A: MAHER: BIOSCI 06/02/2019 [id number] / Implanted: Qty: 1 on 01/15/2018 by Nitin Huggins MD iller/Ad Back / hesive [id number] Pump Lead Penta 3mm 60cm 3228 - [id number] Pain N/A: [facility] JARRETT 11/16/2019 [id number] / Implanted: Qty: 1 on 01/15/2018 by Nitin Huggins MD Mgmt/Sti Back MED: NEUROMODULAT [id number] / mulator ION Stim Neuro Proclaim 7 Elite - [id number] Pain N/A: ST JARRETT 11/05/2019 [id number] / Implanted: Qty: 1 on 01/15/2018 by Nitin Huggins MD Mgmt/Sti Back MED: NEUROMODULAT [id number] / mulator ION Procedures Procedure Name Priority Date/Time Associated Comments Diagnosis RHYTHM STRIP - SCAN 01/18/2018 1:20 PM CDT NEEDLE EMG, 2 EXTREMITY Routine 01/15/2018 2:00 Results for this PM CDT procedure are in the results section. FL RACK WASHER IN OR 30 Routine 01/15/2018 1:15 Results for this MINUTE INCREMENTS PM CDT procedure are in the results section. PROCEDURE W/ 01/15/2018 10:50 Chronic pain INTRAOPERATIVE AM CDT syndrome NEUROMONITORING Lumbar neuritis Special Needs (C-ARM, NEURO- MONITORING: SSEP, NEUROSCOPE, [facility] JAR[facility]TT, ELIDA WOUND CARE TECHNICIAN) PROCEDURE W/ C-ARM 01/15/2018 10:50 AM CDT Chronic pain syndrome Lumbar neuritis Special Needs (C-ARM, NEURO- MONITORING: SSEP, NEUROSCOPE, [facility] JARRETT, ELIDA WOUND CARE TECHNICIAN) INSERTION,SPINAL CORD 01/15/2018 10:50 AM CDT Chronic pain syndrome NEUROSTIMULATOR Lumbar neuritis Special Needs (C-ARM, NEURO- MONITORING: SSEP, NEUROSCOPE, [facility] JARRETT, ELIDA WOUND CARE TECHNICIAN) LAMINECTOMY,INSERTION 01/15/2018 10:50 AM Chronic pain syndrome NEUROSTIMULATOR ELECTRODES CDT Lumbar neuritis Special Needs (C-ARM, NEURO- MONITORING: SSEP, NEUROSCOPE, [facility] JARRETT, ELIDA WOUND CARE TECHNICIAN) TRANSFUSION SERVICE REPORT - SCAN 01/12/2018 5:56 PM CDT after 01/12/2018 Results RHYTHM STRIP - SCAN (01/18/2018 1:20 PM CDT) Narrative Performed At NEEDLE EMG, 2 EXTREMITY (01/15/2018 2:00 PM CDT) Specimen Narrative Performed At INTRAOPERATIVE MONITORING REPORT GE RIS Patient Name: Cas Denny [facility] Surgery Date: 01/15/18 [place] Pro: [id number] Monitoring began at 11:40 a.m and ended [...] Milan M.D., FACNS, FAAN, FAES G89.4, M54.16 Procedure Note Interface, External Ris In - 01/18/2018 4:14 PM CDT INTRAOPERATIVE MONITORING REPORT Patient Name: Cas Denny [facility] Surgery Date: 01/15/18 [place] Pro: [id number] Monitoring began at 11:40 a.m and ended [...] M54.16 Performing Organization Address City/State/Zipcode Phone Number GE RIS FL therapist radiation in or 30 minute increments (01/15/2018 1:15 PM CDT) Specimen Narrative Performed At FINAL REPORT GE RIS Fluoroscopy 1 view intraoperative 01/15/2018 2:13 PM CLINICAL HISTORY: Instrument localization COMPARISON: None available IMPRESSION: Please correlate imaging report findings with the procedure note prepared by Dr. Huggins, as an intra-procedure imaging consultation was not requested. Reported fluoroscopy time: 29.9 seconds. Signed: John Ortiz MD Report Verified Date/Time:01/15/2018 14:19:13 Reading Location: [address] Consult Reading Room Procedure Note Interface, [...] Report Verified Date/Time: 01/15/2018 14:19:13 Reading Location: [address] Consult Reading Room Performing Organization Address City/State/Zipcode Phone Number GE RIS TRANSFUSION SERVICE REPORT - SCAN (01/12/2018 5:56 PM CDT) Narrative Performed At after 01/12/2018 Insurance Payer Benefit Plan / Subscriber ID Type Phone Address Group MEDICARE MEDICARE A B xxxxxxxxxx Medicare BLUE CROSS/BLUE BCBS INDEMNITY [place] xxxxxxxxxxxx O [phone] [address] [facility] [place] [address] Advance Directives For more information, please contact:[address], [place] [phone] Code Status Date Activated Date Inactivated Comments Full Code 01/15/2018 6:59 PM 01/16/2018 2:13 PM This code status was determined by: Patient Full Code 01/15/2018 8:21 AM 01/15/2018 6:59 PM This code status was determined by: Patient
--- OUTSIDE RECORDS SUMMARY | 2019-01-13 11:29 | XMS REPORT | Continuity of Care Document ---
[...] Number For Provider Date Date Visit Outpatient [id number] CHANDRIKA 06/02 [facility] Outpatient [id number] CHANDRIKA 11/[address] [facility] Procedures Procedure Code Date Perfomer Comments Source
[2019-01-13] MEDS ORDERED: Ringers Lactate 1,000 ML IV ONE (12:07)
[2019-01-13] MEDS ORDERED: GENTAMICIN 80 MG/100 ML BAG 80 MG/100 ML BAG IV ONE (12:07)
[2019-01-13 12:17] LABS: Absolute Lymphocytes (CBC) 1.4 K/uL (0.7-4.9); Absolute Monocytes 1.3 K/uL (0.1-1.3); Absolute Neutrophil 9.1 K/uL (1.8-8.0); Basophils % 0.3 % (0-1.3); Eosinophils % 0.4 % (0-4.4); Hematocrit 36.9 % (39.6-49.0); Lymphocytes % 12.1 % (15.3-44.8); MPV 8.8 fL (7.6-11.3); RBC Red Blood Cell Count 4.07 M/uL (4.33-5.43)
[2019-01-13 12:22] LABS: Protime INR 1.16
[2019-01-13 12:36] LABS: Potassium 3.3 mmol/L (3.5-5.1); Uric Acid 4.4 mg/dL (3.5-7.2)
--- NOTE | 2019-01-13 12:41 | RAD REPORT ---
EXAM DESCRIPTION: RAD - Chest Pa And Lat (2 Views) - 01/13/2019 12:31 pm CLINICAL HISTORY: pre op surgery at 1300 today Chest pain. COMPARISON: <Comparisons> FINDINGS: Mild linear opacities in the left lung base are likely atelectasis. The lungs are emphysem atous. The heart is normal in size. Right-sided PICC line has tip in the SVC near the right atrial ju nction.
[2019-01-13 13:02] LABS: Urine Appearance CLEAR; Urine Bilirubin NEGATIVE (NEG); Urine Blood 3+ (NEG); Urine Color YELLOW; Urine Glucose NEGATIVE (NEG); Urine Protein TRACE (NEG); Urine Specific Gravity 1.015 (1.005-1.030); Urine Urobilinogen 0.2 mg/dL (0.2-1.0)
[2019-01-13] MEDS ORDERED: LIDOCAINE 1% MPF 5 ML VIAL ONE (13:39)
[2019-01-13] MEDS ORDERED: MIDAZOLAM HCL 2 MG/2 ML INJ ONE (13:39)
[2019-01-13] MEDS ORDERED: FENTANYL CITR 100 MCG/2 ML ONE (13:39)
[2019-01-13] MEDS ORDERED: PROPOFOL 200 MG/20 ML VIAL IV ONE (13:39)
[2019-01-13 14:11] LABS: Urine Bacteria >50 /HPF (NONE SEEN); Urine Culture Reflex Order REFLEXED; Urine RBC 20-50 /HPF (NONE SEEN); Urine White Blood Cell Casts 0-5 /LPF (NONE SEEN)
[2019-01-13] MEDS ORDERED: Mastisol Adhesive Liq ONE (14:13)
[2019-01-13] MEDS ORDERED: KETOROLAC 30 MG/ML INJ ONE (14:21)
--- NOTE | 2019-01-13 14:25 | RAD REPORT ---
EXAM DESCRIPTION: RAD - Urethrocystogrphy Retrograde - 01/13/2019 2:16 pm FINDINGS: There were 13 fluoroscopic KUB images obtained during fluoroscopic assisted placement of a right ureteral stent. Images show stepwise placement of the stent. No suspicious or unexpected findi ng. Fluoro time was 49 seconds.
[2019-01-13 14:37] VITALS: TEMP 99
[2019-01-13] MEDS ORDERED: HYDROCODONE/APAP 10/325 TAB PO ONE (15:15)
[2019-01-13 15:33] LABS: Urine Appearance TURBID; Urine Blood 3+ (NEG); Urine Color RED; Urine Glucose NEGATIVE (NEG); Urine Protein 3+ (NEG)
[2019-01-13 15:39] LABS: Urine Bilirubin NEGATIVE (NEG)
[2019-01-13 15:51] LABS: Urine Bacteria >50 /HPF (NONE SEEN); Urine Culture Reflex Order NOT NEEDED; Urine RBC >50 /HPF (NONE SEEN)
[2019-01-13 16:44] VITALS: BP 139/56; O2SAT 97
== END 2019-01-13 15:50 | disposition home or self-care (01) ==
LOC: OR 11:23
PROVIDERS: ATTEND Urology
PROC: 0T768DZ Dilation of Right Ureter with Intraluminal Device, Via Natural or Artificial Opening Endoscopic (ICD-10-PCS; principal; 2019-01-13 13:30)
DX: N20.1 Calculus of ureter (principal); Q62.39 Other obstructive defects of renal pelvis and ureter; N39.0 Urinary tract infection, site not specified; N35.919 Unspecified urethral stricture, male, unspecified site; N39.3 Stress incontinence (female) (male); B35.6 Tinea cruris; N42.9 Disorder of prostate, unspecified; E29.1 Testicular hypofunction; I11.9 Hypertensive heart disease without heart failure; F17.210 Nicotine dependence, cigarettes, uncomplicated; Z79.899 Other long term (current) drug therapy; Z85.46 Personal history of malignant neoplasm of prostate
CPT/HCPCS: 52332; 87088 ×2; 85025; 81001 ×2; 80048; 36415; 84100; 85610; 84550; 85730; 82330; 71046; 74450; 51610; J2704; J2250; J3010; J1580; 87086

== ENCOUNTER 2019-04-04 20:16 | Observation (INO) | payer OTHER, BC ==
--- OUTSIDE RECORDS SUMMARY | 2019-04-04 20:19 | XMS REPORT ---
:1945 Author Organization [facility] Address [address] [place] [address] Dr. Hernández[address] [address] Care Team Providers Name Role Phone EDILBERTO HUGGINS SASHA Unavailable Unavailable Problems This patient has no known problems. Allergies, Adverse Reactions, Alerts This patient has no known allergies or adverse reactions. Medications This patient has no known medications. Results Test Description Test Time Test Comments Text Results Atomic Results Result Comments XR Fluoroscopy 2018-06-22 Patient: TORO RODRIGUEZ in Imaging per 15:26:54 MRN: Hour [id number] Date/Time06/22/2018 13:30 CDTReason for ExamsurgeryReportLocation R 16Exam: Intraoperative fluoroscopyHistory: SurgeryComparison: None availableFindings:Intraoperative fluoroscopy demonstrates posterior spinal fusion at the L5-S1 levels. Please see operative notes for further detail.Fluoroscopy time: 2.52minutesNumber of images provided: 9Impression:Intraoperative fluoroscopy demonstrates posterior spinal fusion at the L5-S1 levels. Please see operative notes for further detail. Final Dictated by: MD Osorio Eniola FDictated DT/TM: 06/22/2018 3:25 pmSigned by: MD Osorio Eniola FSigned (Electronic Signature): 06/22/2018 3:26 pm NEEDLE EMG, 2 2018-01-18 INTRAOPERATIVE MONITORING REPORT EXTREMITY 16:14:00 Patient Name: Toro Rodriguez [facility] Surgery Date: 01/15/18 [place] Pro: [id number] Monitoring began at 11:40 a.m and ended [...] Sonido Milan M.D., FACNS, FAAN, FAESG89.4, M54.16 VEHICLE CARE SPECIALIST IN 2018-01-15 Reason for FINAL REPORT OR/30 MINUTE 14:19:00 exam:->Implant Fluoroscopy 1 view intraoperative INCREMENTS spinal cord 01/15/2018 2:13 PM CLINICAL HISTORY: stimulator, Instrument localization COMPARISON: thoracic None available IMPRESSION: Please laminectomy correlate imaging report findings with the procedure note prepared by Dr. Huggins, as an intra-procedure imaging consultation was not requested. Reported fluoroscopy time: 29.9 seconds. Signed: John Ortizeport Verified Date/Time: 01/15/2018 14:19:13 Reading Location: [facility] C013W Consult Reading Room -1 ANTIGEN WITH HIV-1/2 ANTIBODY 2018-01-11 09:49:00 Test Item Value Reference Range Comments HIV-1 ANTIGEN WITH HIV 1\T\2 ANTIBODY (2) (BEAKER) (test Nonreactive Nonreactive nyek=1213) [id number] 09:32:00 Test Item Value Reference Range Comments GLUCOSE RANDOM (BEAKER) (test mvqu=995) 126 mg/dL 70-105 BASIC METABOLIC [id number] 09:32:00 Test Item Value Reference Range Comments SODIUM (BEAKER) (test 142 meq/L 136-145 puqu=470) POTASSIUM (BEAKER) (test 4.1 meq/L 3.5-5.1 mzpy=809) CHLORIDE (BEAKER) (test 106 meq/L 98-107 uncn=756) CO2 (BEAKER) (test 28 meq/L 22-29 pfau=604) BLOOD UREA NITROGEN 21 mg/dL 7-21 (BEAKER) (test expy=743) CREATININE (BEAKER) (test 1.06 mg/dL 0.57-1.25 tado=417) GLUCOSE RANDOM (BEAKER) 126 mg/dL 70-105 (test vahb=804) CALCIUM (BEAKER) (test 9.5 mg/dL 8.4-10.2 awgu=232) EGFR (BEAKER) (test 68 mL/min/1.73 sq m ESTIMATED GFR IS NOT dvsv=2644) ACCURATE CREATININE CLEARANCE IN PREDICTING GLOMERULAR FILTRATION RATE. ESTIMATED GFR IS NOT APPLICABLE FOR DIALYSIS PATIENTS. PROTHROMBIN TIME/[id number] 09:29:00 Test Item Value Reference Range Comments PROTIME (BEAKER) (test tmgp=770) 13.8 seconds 11.7-14.7 INR (BEAKER) (test ijrs=866) 1.1 <=5.9 RECOMMENDED COUMADIN/WARFARIN INR THERAPY RANGESSTANDARD DOSE: 2.0 - 3.0 Includes: PROPHYLAXIS forvenous thrombosis, systemic embolization; TREATMENT for venous thrombosis and/or pulmonary embolus.HIGH RISK: Target INR is 2.5-3.5 for patients with mechanical heart valves.CBC W/PLT COUNT & AUTO [id number] 09:19:00 Test Item Value Reference Range Comments WHITE BLOOD CELL COUNT (BEAKER) (test xytu=619) 10.1 K/ L 3.5-10.5 RED BLOOD CELL COUNT (BEAKER) (test ujdo=822) 4.87 M/ L 4.63-6.08 HEMOGLOBIN (BEAKER) (test xiin=644) 14.6 GM/DL 13.7-17.5 HEMATOCRIT (BEAKER) (test ixxk=834) 46.1 % 40.1-51.0 MEAN CORPUSCULAR VOLUME (BEAKER) (test dxsa=270) 94.7 fL 79.0-92.2 MEAN CORPUSCULAR HEMOGLOBIN (BEAKER) (test 30.0 pg 25.7-32.2 czzn=014) MEAN CORPUSCULAR HEMOGLOBIN CONC (BEAKER) (test 31.7 GM/DL 32.3-36.5 tjfk=807) RED CELL DISTRIBUTION WIDTH (BEAKER) (test 12.7 % 11.6-14.4 ocfe=774) PLATELET COUNT (BEAKER) (test kqpv=020) 286 K/CU MM 150-450 MEAN PLATELET VOLUME (BEAKER) (test ssgq=644) 10.1 fL 9.4-12.4 NUCLEATED RED BLOOD CELLS (BEAKER) (test 0 /100 WBC 0-0 cauo=391) NEUTROPHILS RELATIVE PERCENT (BEAKER) (test 61 % dsjh=316) LYMPHOCYTES RELATIVE PERCENT (BEAKER) (test 27 % ernx=847) MONOCYTES RELATIVE PERCENT (BEAKER) (test 9 % bmht=539) EOSINOPHILS RELATIVE PERCENT (BEAKER) (test 3 % fyxc=717) BASOPHILS RELATIVE PERCENT (BEAKER) (test 1 % qtom=006) NEUTROPHILS ABSOLUTE COUNT (BEAKER) (test 6.16 K/ L 1.78-5.38 ktke=242) LYMPHOCYTES ABSOLUTE COUNT (BEAKER) (test 2.73 K/ L 1.32-3.57 bdvo=753) MONOCYTES ABSOLUTE COUNT (BEAKER) (test 0.89 K/ L 0.30-0.82 xpsu=967) EOSINOPHILS ABSOLUTE COUNT (BEAKER) (test 0.25 K/ L 0.04-0.54 psah=145) BASOPHILS ABSOLUTE COUNT (BEAKER) (test 0.07 K/ L 0.01-0.08 yili=803) IMMATURE GRANULOCYTES-RELATIVE PERCENT (BEAKER) 0 % 0-1 (test zgrl=4396)
--- OUTSIDE RECORDS SUMMARY | 2019-04-04 20:19 | XMS REPORT | Clinical Summary ---
:1945 [address] [facility] [place] [place] Address [address] [place] [address] Care Team Providers Name Role Phone [place] [...] S/P insertion of spinal cord stimulator 01/15/2018 Social History Tobacco Use Types Packs/Day Years Used Date Former Smoker Quit: 2016 Smokeless Tobacco: Never Used Alcohol Use Drinks/Week oz/Week Comments No Sex Assigned at Date Recorded Not on file Job Start Date Occupation Industry Not on file Not on file Not on file Travel History Travel Start Travel End No recent travel history available. Last Filed Vital Signs Not on file Plan of Treatment Not on file Implants Implanted Type Area Security Police Device Shelf Model / Identifier Expiration [facility] / [facility] [id number] - [id number] Cement/F N/A: MAHER: BIOSCI 06/02/2019 [id number] / Implanted: Qty: 1 on 01/15/2018 by Nitin Huggins MD iller/Ad Back / hesive [id number] Pump Lead Penta 3mm 60cm 3228 - [id number] Pain N/A: [facility] JARRETT 11/16/2019 3228 / Implanted: Qty: 1 on 01/15/2018 by Nitin Huggins MD Mgmt/Sti Back MED: NEUROMODULAT [id number] / mulator ION Stim Neuro Proclaim 7 Elite - [id number] Pain N/A: [facility] JARRETT 11/05/2019 [id number] / Implanted: Qty: 1 on 01/15/2018 by Nitin Huggins MD Mgmt/Sti Back MED: NEUROMODULAT [id number] / mulator ION Results Not on fileafter 04/03/2018 Insurance Payer Benefit Plan / Subscriber ID Type Phone Address Group MEDICARE MEDICARE A B xxxxxxxxxx Medicare BLUE CROSS/BLUE BCBS INDEMNITY [place] xxxxxxxxxxxx PPO [phone] [address] [place] [address] (Home) [place] [address] Advance Directives For more information, please contact:[address] [phone] Code Status Date Activated Date Inactivated Comments Full Code 01/15/2018 6:59 PM 01/16/2018 2:13 PM This code status was determined by: Patient Full Code 01/15/2018 8:21 AM 01/15/2018 6:59 PM This code status was determined by: Patient
--- OUTSIDE RECORDS SUMMARY | 2019-04-04 20:19 | XMS REPORT | Summary of Care ---
:1945 Author Organization [facility] [place] Address [address] [place] [address]- Encounter HQ Encntr_alias(FIN) [id number] Date(s): 09/02/18 - 09/03/18 [facility], [place] [address] [place] [address]- [phone] Vital Signs No data available for this section Problem List Condition Effective Dates Status Health Status Informant Hyperlipidemia(Confirmed) Active Hypertension(Confirmed) Active Myoclonus(Confirmed) Active RLS (restless legs Active syndrome)(Confirmed) Allergies, Adverse Reactions, Alerts No Known Medication Allergies Medications No data available for this section Results No data available for this section Immunizations No data available for this section Procedures No data available for this section Social History Social History Type Response Smoking Status Former smoker; Exposure to Tobacco Smoke Unable to obtain; Cigarette Smoking Last 365 Days Unable to obtain; Reg Smoking Cessation Counseling No entered on: 06/02/18 Assessment and Plan No data available for this section
--- OUTSIDE RECORDS SUMMARY | 2019-04-04 20:19 | XMS REPORT | Continuity of Care Document ---
:1945 Author Organization [employer] Care Team Providers Name Role Phone [employer] Unavailable Unavailable Problems Problem Status Onset Classification Date Comments Source Date Reported Hyperlipidemia Active Problem 03/24/2019 [facility] Hypertension Active Problem 03/24/2019 [facility] Myoclonus Active Problem 03/24/2019 [facility] RLS (Confirmed) Active Problem 03/24/2019 [facility] Medications No Data Provided for This Section Allergies, Adverse Reactions, Alerts Substance Category Reaction Severity Reaction Status Date Comments Source type Reported No Known Assertion Drug [facility] Medication allergy Neuro Allergies Immunizations No Data Provided for This Section Results No Data Provided for This Section Pathology Reports No Data Provided for This Section Diagnostic Reports No Data Provided for This Section Consultation Notes No Data Provided for This Section Discharge Summaries No Data Provided for This Section History and Physicals No Data Provided for This Section Vital Signs No Data Provided for This Section Encounters Location Location Encounter Encounter Reason Attending ADM DC Status Source Details Type Number For Provider Date Date Visit Outpatient [id number] CHANDRIKA 06/02 [facility] Outside [id number] 09/02 09/04 [facility] Medical /2017 [facility] Records Outpatient [id number] CHANDRIKA 11/30 [facility] Procedures No Data Provided for This Section Assessment and Plan No Data Provided for This Section Plan of Care No Data Provided for This Section Social History Social History Date Source Social History TypeResponse 06/02/2018 [facility] Smoking Status Former smoker; Exposure to Tobacco Smoke Unable to obtain; Cigarette Smoking Last 365 Days Unable to obtain; Reg Smoking Cessation Counseling No entered on: 06/02/18 Family History No Data Provided for This Section Advance Directives No Data Provided for This Section Functional Status No Data Provided for This Section
[2019-04-04 21:25] LABS: Absolute Lymphocytes (CBC) 1.5 K/uL (0.7-4.9); Hematocrit 46.2 % (39.6-49.0); Lymphocytes % 12.6 % (15.3-44.8); RBC Red Blood Cell Count 5.04 M/uL (4.33-5.43)
[2019-04-04 21:30] LABS: Protime INR 1.04
[2019-04-04] MEDS ORDERED: NITROGLYCERIN 0.4 MG/TAB SL ONE (21:39)
[2019-04-04 21:45] LABS: ALT/SGPT 160 U/L (12-78); AST/SGOT 251 U/L (15-37); Albumin 3.7 g/dL (3.4-5.0); Alkaline Phosphatase 120 U/L (45-117); BUN Blood Urea Nitrogen 21 mg/dL (7-18); Bicarbonate 26 mmol/L (21-32); Bilirubin Direct 0.5 mg/dL (0-0.2); Bilirubin Total 1.1 mg/dL (0.2-1.0); Glucose Level 111 mg/dL (74-106); Magnesium 2.3 mg/dL (1.8-2.4); NT PRO-BNP 87 pg/mL (<450); Potassium 3.7 mmol/L (3.5-5.1); Protein, Total 7.4 g/dL (6.4-8.2); Sodium Level 144 mmol/L (136-145); Troponin (Emerg Dept Use Only) < 0.02 ng/mL (0.0-0.045)
--- NOTE | 2019-04-04 21:57 | RAD REPORT ---
EXAM DESCRIPTION: RAD - Chest Single View - 04/04/2019 9:08 pm CLINICAL HISTORY: CHEST PAIN Chest pain. COMPARISON: Abdomen 1 View (KUB) dated 02/07/2019; Abdomen 1 View (KUB) dated 01/25/2019; Abdomen 1 Vie w (KUB) dated 01/19/2019; Chest Pa And Lat (2 Views) dated 01/13/2019 FINDINGS: Portable technique limits examination quality. The lungs are emphysematous but grossly clear. The heart is upper limit of normal in size. Small left pleural effusion likely present. No displaced fractures.
[2019-04-04] MEDS ORDERED: ONDANSETRON 4 MG/2 ML VIAL ONE (21:58)
[2019-04-04] MEDS ORDERED: MORPHINE 4 MG/ML SYR ONE (21:58)
--- NOTE | 2019-04-04 23:05 | EDPHYS ---
Physician Documentation [facility] Name: Cas Denny Age: 73 yrs Sex: Male : 1945 Arrival Date: 04/04/2019 Time: 20:17 Bed 17 Private MD: Santana Bernstein R ED Physician Nitin Torres HPI: 04/05 01:40 This 73 yrs old Male presents to ER via Ambulatory with complaints of Chest tw4 Pain. 01:40 The patient or guardian reports chest pain that is located primarily in the anterior tw4 chest wall. Onset: today. The pain does not radiate. Associated signs and symptoms: The patient has no apparent associated signs or symptoms. The chest pain is described as dull, a heaviness. Duration: The patient or guardian reports a single episode, that is now resolved. Severity of pain: At its worst the pain was moderate. Historical: - Allergies: 04/04 20:38 Tape; bb - Home Meds: 20:38 atorvastatin 20 mg Oral tab 1 tab once daily [Active]; fentanyl 100 mcg/hr Topical pt72 bb 1 patch 40 hrs [Active]; gabapentin 600 mg Oral tab [Active]; [place] 10-325 mg Oral tab 1 tab PRN [Active]; omeprazole 40 mg Oral cpDR 1 cap once daily [Active]; metoprolol succinate oral oral [Active]; amlodipine oral [Active]; Norvasc Oral [Active]; Allopurinol Oral [Active]; - PMHx: 20:38 Back pain; Hypertension; Prostate Cancer; "bad esophagus"; chronic back pain; GERD; bb CAD; Kidney stones; - PSHx: 20:38 neck surgery; back surgery; Appendectomy; Cholecystectomy; prostatectomy; Hernia bb repair; bladder dilation; DVR stimulator; Heart stents; - Immunization history:: Adult Immunizations up to date. - Social history:: Smoking status: Patient/guardian denies using tobacco. - Ebola Screening: : No symptoms or risks identified at this time. ROS: 04/05 01:40 Constitutional: Negative for fever, chills, and weight loss, Eyes: Negative for injury, tw4 pain, redness, and discharge, Cardiovascular: Negative for chest pain, palpitations, and edema, Respiratory: Negative for shortness of breath, cough, wheezing, and pleuritic chest pain, Abdomen/GI: Negative for abdominal pain, nausea, vomiting, diarrhea, and constipation, Back: Negative for injury and pain, Skin: Negative for injury, rash, and discoloration, Neuro: Negative for headache, weakness, numbness, tingling, and seizure. Exam: 01:40 Constitutional: This is a well developed, well nourished patient who is awake, alert, tw4 and in no acute distress. Head/Face: Normocephalic, atraumatic. Cardiovascular: Regular rate and rhythm with a normal S1 and S2. No gallops, murmurs, or rubs. Normal PMI, no JVD. No pulse deficits. Respiratory: Lungs have equal breath sounds bilaterally, clear to auscultation and percussion. No rales, rhonchi or wheezes noted. No increased work of breathing, no retractions or nasal flaring. Abdomen/GI: Soft, non-tender, with normal bowel sounds. No distension or tympany. No guarding or rebound. No evidence of tenderness throughout. Back: No spinal tenderness. No costovertebral tenderness. Full range of motion. MS/ Extremity: Pulses equal, no cyanosis. Neurovascular intact. Full, normal range of motion. Neuro: Awake and alert, GCS 15, oriented to person, place, time, and situation. Cranial nerves II-XII grossly intact. Motor strength 5/5 in all extremities. Sensory grossly intact. Cerebellar exam normal. Normal gait. 01:40 Chest/axilla: Inspection: normal, Palpation: tenderness, that is moderate, that partially reproduces the patient's complaints. Vital Signs: 04/04 20:38 BP 154 / 57; Pulse 75; Resp 20 S; Pulse Ox 97% on R/A; Weight 71.67 kg (R); Height 5 bb ft. 8 in. (172.72 cm) (R); Pain 10/10; 21:46 BP 129 / 55; Pulse 72; Resp 16; Temp 98.4(O); Pulse Ox 100% ; ao 22:52 BP 128 / 63; Pulse 65; Resp 16; Pulse Ox 100% ; ao 20:38 Body Mass Index 24.02 (71.67 kg, 172.72 cm) bb MDM: 20:22 Patient medically screened. tw4 04/05 01:40 Differential diagnosis: pancreatitis, peptic ulcer disease, pericarditis, pulmonary tw4 embolus, thoracic aortic disection. HEART Score: History: Moderately Suspicious (1), ECG: Non specific repolarization disturbance / LBTB / PM (1), Age: > or = 65 years (2), Risk Factors: 1 or 2 risk factors (1), Troponin: < or = 1 x Normal Limit (0), Total Score = 5. Data reviewed: vital signs, nurses notes. Data interpreted: Pulse oximetry: Interpretation: normal. Counseling: I had a detailed discussion with the patient and/or guardian regarding: the historical points, exam findings, and any diagnostic results supporting the discharge/admit diagnosis, lab results, radiology results. Physician consultation: Ady Amor MD and will see patient in inpatient room. 04/04 20:22 Order name: Basic Metabolic Panel; Complete Time: 22:59 04/04 20:22 Order name: CBC with Diff; Complete Time: 22:59 04/04 20:22 Order name: LFT's; Complete Time: :59 04/04 20:22 Order name: Magnesium; Complete Time: :59 04/04 20:22 Order name: NT PRO-BNP; Complete Time: 22:59 04/04 20:22 Order name: PT-INR; Complete Time: :59 04/04 20:22 Order name: Troponin (emerg Dept Use Only); Complete Time: 22:59 04/04 20:22 Order name: XRAY Chest (1 view); Complete Time: 22:59 04/04 20:22 Order name: EKG; Complete Time: 20:25 04/04 20:22 Order name: Cardiac monitoring; Complete Time: 21:24 04/04 20:22 Order name: EKG - Nurse/Tech; Complete Time: 21:24 04/04 20:22 Order name: IV Saline Lock; Complete Time: 21:24 04/04 20:22 Order name: Labs collected and sent; Complete Time: 21:24 04/04 20:22 Order name: O2 Per Protocol; Complete Time: 21:24 04/04 20:22 Order name: O2 Sat Monitoring; Complete Time: : Administered Medications: 04/04 21:30 Drug: Nitroglycerin 0.4 mg Route: Sublingual; ao 22:52 Follow up: Response: No adverse reaction ao 21:50 Drug: morphine 4 mg Route: IVP; Site: right antecubital; ao 22:53 Follow up: Response: No adverse reaction ao 21:51 Drug: Zofran 4 mg Route: IVP; Site: right antecubital; ao 22:53 Follow up: Response: No adverse reaction ao Disposition: 04/04/19 23:04 Hospitalization ordered by Ady Amor for Observation. Preliminary diagnosis is Chest pain, unspecified. - Bed requested for Telemetry/MedSurg (observation). - Status is Observation. ao - Condition is Stable. - Problem is new. - Symptoms have improved. UTI on Admission? No Signatures: Dispatcher [employer] EDMS Shelley Michaud, RN RN Fay Penn RN RN Indio Oakley RN RN Nitin White MD MD tw4 Corrections: (The following items were deleted from the chart) 04/05 00:18 04/04 23:04 Hospitalization Ordered by Ady Amor MD for Observation. Preliminary cg diagnosis is Chest pain, unspecified. Bed requested for Telemetry/MedSurg (observation). Status is Observation. Condition is Stable. Problem is new. Symptoms have improved. UTI on Admission? No. tw4 04/05 01:39 00:18 04/04/2019 23:04 Hospitalization Ordered by Ady Amor MD for Observation. ao Preliminary diagnosis is Chest pain, unspecified. Bed requested for Telemetry/MedSurg (observation). Status is Observation. Condition is Stable. Problem is new. Symptoms have improved. UTI on Admission? No. cg
--- NOTE | 2019-04-04 23:05 | ER ---
Nurse's Notes [facility] Name: Cas Denny Age: 73 yrs Sex: Male : 1945 Arrival Date: 04/04/2019 Time: 20:17 Bed 17 Private MD: Santana Bernstein R Diagnosis: Chest pain, unspecified Presentation: 04/04 20:33 Presenting complaint: Patient states: he is having chest pain for 45 minutes the pain bb was severe but seems a little better now also having shortness of breath from the pain. Transition of care: patient was not received from another setting of care. Onset of symptoms was April 04, 2019. Risk Assessment: Do you want to hurt yourself or someone else? Patient reports no desire to harm self or others. Initial Sepsis Screen: Does the patient meet any 2 criteria? No. Patient's initial sepsis screen is negative. Does the patient have a suspected source of infection? No. Patient's initial sepsis screen is negative. Care prior to arrival: None. 20:33 Method Of Arrival: Ambulatory bb 20:33 Acuity: MIRZA 2 bb Historical: - Allergies: 20:38 Tape; bb - Home Meds: 20:38 atorvastatin 20 mg Oral tab 1 tab once daily [Active]; fentanyl 100 mcg/hr Topical pt72 bb 1 patch 40 hrs [Active]; gabapentin 600 mg Oral tab [Active]; [place] 10-325 mg Oral tab 1 tab PRN [Active]; omeprazole 40 mg Oral cpDR 1 cap once daily [Active]; metoprolol succinate oral oral [Active]; amlodipine oral [Active]; Norvasc Oral [Active]; Allopurinol Oral [Active]; - PMHx: 20:38 Back pain; Hypertension; Prostate Cancer; "bad esophagus"; chronic back pain; GERD; bb CAD; Kidney stones; - PSHx: 20:38 neck surgery; back surgery; Appendectomy; Cholecystectomy; prostatectomy; Hernia bb repair; bladder dilation; DVR stimulator; Heart stents; - Immunization history:: Adult Immunizations up to date. - Social history:: Smoking status: Patient/guardian denies using tobacco. - Ebola Screening: : No symptoms or risks identified at this time. Screenin:48 Abuse screen: Denies threats or abuse. Denies injuries from another. Nutritional ao screening: No deficits noted. Tuberculosis screening: No symptoms or risk factors identified. Fall Risk None identified. Assessment: 20:50 General: Appears in no apparent distress. comfortable, Behavior is calm, cooperative, ao appropriate for age. Pain: Complains of pain in chest Pain does not radiate. Pain currently is 6 out of 10 on a pain scale. Pain began 2-3 days ago. Neuro: Level of Consciousness is awake, alert, obeys commands, Oriented to person, place, time, situation, Appropriate for age Moves all extremities. Full function Speech is normal, Facial symmetry appears normal, Intact. Cardiovascular: Heart tones S1 S2 Capillary refill < 3 seconds Patient's skin is warm and dry. Respiratory: Airway is patent Respiratory effort is even, unlabored, Respiratory pattern is regular, symmetrical, Breath sounds are clear bilaterally. GI: Abdomen is flat, non-distended. : No signs and/or symptoms were reported regarding the genitourinary system. EENT: No signs and/or symptoms were reported regarding the EENT system. Derm: Skin is intact, Skin is pink, warm \\T\\ dry. normal, Skin temperature is warm. Musculoskeletal: Circulation, motion, and sensation intact. Swelling absent. 21:25 Reassessment: Received a verbal order to medicate with Nitro sublingual 0.4Mg. ao 21:46 Reassessment: Receive an verbal order to medicate with Morphine 4 and Zofran 4. See FARIDEH machado for administration. 22:51 Reassessment: Patient appears in no apparent distress at this time. Patient and/or ao family updated on plan of care and expected duration. Pain level reassessed. Patient is alert, oriented x 3, equal unlabored respirations, skin warm/dry/pink. Waiting on provider reassessment. 04/05 00:46 Reassessment: Report given to JENNIFER Ramos. ao Vital Signs: 04/04 20:38 BP 154 / 57; Pulse 75; Resp 20 S; Pulse Ox 97% on R/A; Weight 71.67 kg (R); Height 5 bb ft. 8 in. (172.72 cm) (R); Pain 10/10; 21:46 BP 129 / 55; Pulse 72; Resp 16; Temp 98.4(O); Pulse Ox 100% ; ao 22:52 BP 128 / 63; Pulse 65; Resp 16; Pulse Ox 100% ; ao 20:38 Body Mass Index 24.02 (71.67 kg, 172.72 cm) bb ED Course: 20:18 Patient arrived in ED. es 20:18 Santana Bernstein MD is Private Physician. es 20:22 Nitin Torres MD is Attending Physician. tw4 20:35 Triage completed. bb 20:38 Arm band placed on Patient placed in an exam room, on a stretcher, on residential monitor, bb on pulse oximetry. EKG completed in triage. Results shown to MD. Family accompanied patient. 20:50 Indio Kaur, RN is Primary Nurse. ao 21:11 XRAY Chest (1 view) In Process Unspecified. EDMS 21:49 Patient has correct armband on for positive identification. Pulse ox on. NIBP on. ao 21:49 Patient maintains SpO2 saturation greater than 95% on room air. ao 21:52 Inserted saline lock: 20 gauge in right antecubital area, using aseptic technique. ao ,using aseptic technique. US guided IV Blood collected. 23:03 Ady Amor MD is Hospitalizing Provider. tw4 04/05 00:46 No provider procedures requiring assistance completed. Patient admitted, IV remains in ao place. Administered Medications: 04/04 21:30 Drug: Nitroglycerin 0.4 mg Route: Sublingual; ao 22:52 Follow up: Response: No adverse reaction ao 21:50 Drug: morphine 4 mg Route: IVP; Site: right antecubital; ao 22:53 Follow up: Response: No adverse reaction ao 21:51 Drug: Zofran 4 mg Route: IVP; Site: right antecubital; ao 22:53 Follow up: Response: No adverse reaction ao Outcome: 23:04 Decision to Hospitalize by Provider. tw4 04/05 00:47 Admitted to Tele accompanied by tech, room 406, Report called to JENNIFER Ramos ao Condition: stable Instructed on the need for admit. 01:39 Patient left the ED. ao Signatures: Dispatcher [employer] Cookie Moreno Brenda, Indio Tellez RN, Nitin Gonsales RN, MD MD tw4
[2019-04-04] MEDS ORDERED: MORPHINE 4 MG/ML SYR IV PRN (23:59)
[2019-04-04] MEDS ORDERED: ALPRAZOLAM 0.25 MG TABLET PO PRN (23:59)
[2019-04-04] MEDS ORDERED: ACETAMINOPHEN 500 MG TAB PO PRN (23:59)
[2019-04-05 01:42] VITALS: BMI 23.8
[2019-04-05 02:48] LABS: Urine Appearance CLEAR; Urine Blood NEGATIVE (NEG); Urine Color DK YELLOW; Urine Glucose NEGATIVE (NEG); Urine Protein NEGATIVE (NEG); Urine Specific Gravity 1.025 (1.005-1.030); Urine pH 5.5 (5.0-7.0)
[2019-04-05 02:57] VITALS: O2SAT 100
[2019-04-05 03:11] LABS: Urine Microscopic Reflex ORDER UMIC
[2019-04-05 03:14] LABS: Urine Bilirubin 1+ (NEG)
[2019-04-05 03:23] LABS: Urine Mucus 2+ /HPF (NONE SEEN)
[2019-04-05 03:24] LABS: Urine Bacteria <20 /HPF (NONE SEEN); Urine Culture Reflex Order REFLEXED; Urine RBC <5 /HPF (NONE SEEN)
[2019-04-05] MEDS ORDERED: PANTOPRAZOLE 40 MG INJ IVP ONE (05:28)
[2019-04-05] MEDS ORDERED: SODIUM CHLORIDE 0.9% 10ML INJ IV PRN (05:28)
[2019-04-05] MEDS ORDERED: PNEUMOCOCCAL VACCINE 0.5 ML IMVAC ONE (08:00)
[2019-04-05] MEDS ORDERED: ASPIRIN EC 81 MG TAB PO SCH (09:00)
[2019-04-05] MEDS ORDERED: ENOXAPARIN 40 MG/0.4 ML SQ SCH (09:00)
[2019-04-05] MEDS ORDERED: METOPROLOL TAR 50 MG TAB PO SCH (09:00)
[2019-04-05 13:18] VITALS: BP 129/58; TEMP 97.5
--- NOTE | 2019-04-05 13:36 | EKG ---
Test Date: 2019-04-05 Test Time: 07:30:54 [employer]: KATHERIN MEASUREMENT RESULTS: Intervals: Rate: 60 DC: 156 QRSD: 68 QT: 450 QTc: 450 [place]: P: 48 DC: 156 QRS: 16 T: 40 INTERPRETIVE STATEMENTS: Normal sinus rhythm Low voltage QRS Borderline ECG Compared to ECG 04/04/2019 20:29:13 Low QRS voltage now present T-wave abnormality no longer present Electronically Signed On 04-05-19 13:34:04 CDT by Iker Hernadez
--- NOTE | 2019-04-05 13:37 | EKG ---
Test Date: 2019-04-04 Test Time: 20:29:13 Monkey Keeper: PRISCILLA MEASUREMENT RESULTS: Intervals: Rate: 68 VA: 126 QRSD: 70 QT: 314 QTc: 333 [place]: P: 23 VA: 126 QRS: 18 T: 20 INTERPRETIVE STATEMENTS: Normal sinus rhythm Nonspecific T wave abnormality Abnormal ECG Compared to ECG 06/24/2018 16:16:21 T-wave abnormality now present Electronically Signed On 04-05-19 13:34:15 CDT by Iker Hernadez
--- NOTE | 2019-04-05 13:54 | ECHO ---
HEIGHT: 5 ft 8 in WEIGHT: 156 lb 12.8 oz DATE OF STUDY: 04/05/[address]: Ady Amor MD 2-DIMENSIONAL: YES M.MODE: YES DOPPLER: YES COLOR FLOW: YES TDS: NO PORTABLE: NO DEFINITY: NO BUBBLE STUDY: NO DIAGNOSIS: CHEST PAIN RULE OUT ACS CARDIAC HISTORY: CATHERIZATION: YES SURGERY: NO PROSTHETIC VALVE: NO PACEMAKER: NO MEASUREMENTS (cm) DIASTOLIC (NORMALS) SYSTOLIC (NORMALS) IVSd 0.8 (0.6-1.2) LA Diam 3.0 (1.9-4.0) LVEF 68% LVIDd 4.1 (3.5-5.7) LVIDs 2.6 (2.0-3.5) %FS 37% LVPWd 0.9 (0.6-1.2) Ao Diam 2.7 (2.0-3.7) 2 DIMENSIONAL ASSESSMENT: RIGHT ATRIUM: NORMAL LEFT ATRIUM: NORMAL RIGHT VENTRICLE: NORMAL LEFT VENTRICLE: NORMAL TRICUSPID VALVE: NORMAL MITRAL VALVE: NORMAL PULMONIC VALVE: NORMAL AORTIC VALVE: NORMAL PERICARDIAL EFFUSION: NONE AORTIC ROOT: NORMAL LEFT VENTRICULAR WALL MOTION: NORMAL DOPPLER/COLOR FLOW: NORMAL COMMENTS: NORMAL 2D ECHOCARDIOGRAM WITH DOPPLER. NO WALL MOTION ABNORMALITY. NO EFFUSION. TECHNOLOGIST: Vivian EDMONDS
[2019-04-05] MEDS ORDERED: PANTOPRAZOLE 40MG TABLET PO SCH (16:30)
--- NOTE | 2019-04-05 20:52 | P.HP ---
Certification for Inpatient Patient admitted to: Observation With expected LOS: <2 Midnights Patient will require the following post-hospital care: None Practitioner: I am a practitioner with admitting privileges, knowledge of patient current condition, hospital course, and medical plan of care. Services: Services provided to patient in accordance with Admission requirements found in Title 42 Section 412.3 of the Code of Federal Regulations Patient History Date of Service: 04/05/19 Reason for admission: Chest pain rule out acute coronary syndrome History of Present Illness: Patient is a 73-year-old gentleman who came to the hospital with chest pain. Pain was mainly in the epigastric region. He said he had similar pain but at that point was diagnosed with gastric ulcer disease. He came into the emergency room because he has had a history of coronary artery disease with stent placement. He also has chronic pain and is on a fentanyl patch. He takes hydrocodone occasionally as well. He does not really do much day-to-day because of his degree of pain. He denies any shortness of breath. He denies any nausea or diaphoresis. He will be admitted to the hospital to be ruled out for acute coronary syndrome. Allergies adhesive tape Adverse Reaction (Mild, Verified 04/05/19 02:11) blisters Home Medications: Amlodipine Besylate [Norvasc] 10 mg PO DAILY 12/25/11 Metoprolol Succinate [Toprol Xl] 25 mg PO BEDTIME 12/25/11 Atorvastatin Calcium [Lipitor] 20 mg PO BEDTIME 06/24/18 Gabapentin [Neurontin] 300 mg PO DAILY 06/24/18 Omeprazole [Prilosec] 40 mg PO DAILY 06/24/18 Hydrocodone Bit/Acetaminophen [Hydrocodon-Acetaminophn 10-325] 1 each PO PRN PRN 01/10/19 fentaNYL [Duragesic] 1 each TD Q72H 01/10/19 Allopurinol [Zyloprim*] 300 mg PO DAILY 04/05/19 - Past Medical/Surgical History Diabetic: No -: chronic back and neck pain -: hypertension -: prostate cancer -: bad esophagus -: GERD -: CAD -: kidney stones -: neck surgery -: back surgery x2 -: appendectomy -: hernia repair -: cholecystectomy -: prostatectomy -: bladder dilation -: DVR stimulator - Family History Mother Medical History: Heart disease Father Medical History: Cancer - Social History Smoking Status: Former smoker Alcohol use: No CD- Drugs: Yes Caffeine use: No Place of Residence: Home Review of Systems 10-point ROS is otherwise unremarkable Physical Examination - Vital Signs Temperature: 97.5 F Blood Pressure: 129/58 Pulse: 60 Respirations: 16 Pulse Ox (%): 96 - Physical Exam General: Alert, In no apparent distress, Oriented x3 HEENT: Atraumatic, PERRLA, Mucous membr. moist/pink, EOMI, Sclerae nonicteric Neck: Supple, 2+ carotid pulse no bruit, No LAD, Without JVD or thyroid abnormality Respiratory: Clear to auscultation bilaterally, Normal air movement Cardiovascular: Regular rate/rhythm, Normal S1 S2, No murmurs Gastrointestinal: Normal bowel sounds, Soft and benign, Non-distended, No tenderness Musculoskeletal: No clubbing, No swelling, No tenderness Integumentary: No rashes Neurological: Normal gait, Normal speech, Normal strength at 5/5 x4 extr, Normal tone, Sensation intact, Cranial nerves 3-12 intact, Normal affect Lymphatics: No axilla or inguinal lymphadenopathy - Studies Laboratory Data (last 24 hrs) 04/04/19 21:18: PT 12.2, INR 1.04 04/04/19 21:18: WBC 12.0 H, Hgb 15.3, Hct 46.2, Plt Count 222 04/04/19 21:18: Sodium 144, Potassium 3.7, BUN 21 H, Creatinine 0.98, Glucose 111 H, Magnesium 2.3, Total Bilirubin 1.1 H, AST 251 H, ALT 160 H, Alkaline Phosphatase 120 H Assessment & Plan - Problems (Diagnosis) (1) Chest pain, rule out acute myocardial infarction Status: Acute (2) Gastritis Status: Acute (3) History of coronary artery disease Status: Acute (4) Chronic pain syndrome Status: Acute - Plan 1. Serial troponins and EKG 2. Cardiology consultation 3. Echocardiogram & await cardiology evaluation 4. Anti-platelet therapy, anti coagulation, beta-elton, statin, and O2 as needed 5. IV morphine for pain 6. We will go ahead and also add Protonix. Patient is on a PPI at home. May need to increase it to twice a day and outpatient EGD. Discharge Plan: Home Plan to discharge in: 24 Hours - Advance Directives Does patient have a Living Will: Yes Does patient have a Durable POA for Healthcare: No - Code Status/Comfort Care Code Status Assessed: Yes Code Status: Full Code Critical Care: No Time Spent Managing PTS Care (In Minutes): 45
[2019-04-05] MEDS ORDERED: ATORVASTATIN 20 MG TAB PO SCH (21:00)
--- NOTE | 2019-04-06 00:47 | HP ---
Date of Admission: 04/04/2019 Chief Complaint: Epigastric pain. History Of Present Illness: A 73-year-old male was brought to the emergency room with epigastric hank n. The patient had an assessment in the emergency room. The patient is admitted for observation. T he patient denied any fever, chills, rigors, hemoptysis, or other systemic symptoms. The patient had a stress test in Dr. Hernadez's office last year and it was negative. Past Medical History: Positive for hypertension, history of esophageal disease, chronic back pain, a nolan reflux disease, history of coronary artery disease, and kidney stones. Past Surgical History: Extensive, includes history of neck surgery, back surgery, gallbladder surger y, prostate surgery, appendectomy, hernia repair, coronary angioplasty. Allergies: NONE. Home Medications: Please refer to the chart. Review of Systems: No fever, chills, rigors. Physical Examination: General: Reveals a 73-year-old male, alert for his age. HEENT: Negative. Neck: Supple. JVD negative. Chest: Clear. Heart: Regular. Abdomen: Soft. Extremities: No edema. Laboratory Data: Chest x-ray, no active disease. Echocardiogram, normal. Troponin normal. Assessment: 1.Epigastric pain. 2.Known coronary artery disease, status post angioplasty and stent placement. 3.Hypertension. 4.Chronic anxiety. 5.Chronic pain management issues. Plan: The patient has been seen by cardiology services and as patient is not having any acute medina ry syndrome, he was discharged with a followup with Dr. Hernadez in his office for a stress test. MAYANK/BEAR Voice ID: [id number]
[2019-04-06] MEDS ORDERED: AMLODIPINE 10 MG TAB PO SCH (09:00)
[2019-04-06] MEDS ORDERED: ALLOPURINOL 300 MG TAB PO SCH (09:00)
[2019-04-06] MEDS ORDERED: GABAPENTIN 300 MG CAP PO SCH (09:00)
--- NOTE | 2019-04-06 10:57 | CON ---
Date of Consultation: 04/05/2019 Reason For Consultation: Chest pain. History Of Present Illness: Mr. Denny is a 73-year-old male whom I have known for years. He estrella s a history of coronary artery disease. He is status post RCA stent approximately 10 years ago. He has not had a stress test for more than 2 years. He has a history of hypertension, gastroesophageal reflux disease, and chronic pain. He has a pain pump. He came in with sharp stabbing chest pain ove r the midepigastric region, did not radiate. He also has some pain in the right upper quadrant. He had an elevated AST, ALT, and white count. His troponin was negative. His EKG was negative. Past Medical History: As stated above. Allergies: HE IS ALLERGIC TO ADHESIVE TAPE. Review of Systems: Positive for recent productive cough. Medications: At home include Toprol, Prilosec, Duragesic, allopurinol, Neurontin, Norvasc, and Lipit or. Physical Examination: General: He was very pleasant, no acute distress. Vital Signs: Stable. Afebrile, sinus rhythm. HEENT: Negative. Neck: Supple without any bruit, lymphadenopathy, JVD, or thyromegaly. Chest: Clear to auscultation and percussion. Cardiac: Revealed a regular rhythm and rate. No murmurs, gallops, or rubs. Abdomen: Benign. Extremities: Revealed no clubbing, cyanosis, or edema. Diagnostic Data: All within normal limits except for what was mentioned about the liver function. Impression And Plan: 1.Atypical chest pain. I would focus more on a GI workup. He has an elevated white count, elevated liver function tests. An ultrasound of the liver and the gallbladder area may be adequate. He is s tatus post cholecystectomy. It is unlikely that this is cardiac, however, I think an echocardiogram is pending and an outpatient stress test may be indicated. He has not had one for 2 years and has estrella d a stent in the past. 2.Hypertension. 3.Gastroesophageal reflux disease. 4.Chronic back pain. I will discuss the case further with his primary care physician. I am comfort able with him going home. I will see him in the office after a stress test in the near future. ALBERTO/BEAR Voice ID: [id number] Report ID: [id number]
[2019-04-07] MEDS ORDERED: FENTANYL 100 MCG/PATCH TD SCH (09:00)
== END 2019-04-05 16:25 | disposition home or self-care (01) ==
LOC: ER 20:16 → ERHOLD 23:59 → INTOOBSV 23:59 → 4TH 04-05 01:07
PROVIDERS: ADMIT Hospitalist; ATTEND Internal Medicine
DX: R07.89 Other chest pain (principal); D72.829 Elevated white blood cell count, unspecified; R79.89 Other specified abnormal findings of blood chemistry; I10 Essential (primary) hypertension; K21.9 Gastro-esophageal reflux disease without esophagitis; K29.70 Gastritis, unspecified, without bleeding; M54.9 Dorsalgia, unspecified; G89.4 Chronic pain syndrome; I25.10 Atherosclerotic heart disease of native coronary artery without angina pectoris; F41.9 Anxiety disorder, unspecified; R94.31 Abnormal electrocardiogram [ECG] [EKG]; Z79.899 Other long term (current) drug therapy; Z95.5 Presence of coronary angioplasty implant and graft; Z90.49 Acquired absence of other specified parts of digestive tract; Z85.46 Personal history of malignant neoplasm of prostate; Z87.891 Personal history of nicotine dependence
CPT/HCPCS: 93005 ×2; 93306; 87088; 85025; 87086; 80048; 36415; 83735; 85610; 80061; 80076; 84484 ×3; 83880; 71045; 90471; 90670; C9113; J1650; J2405; 81003; 81015; 96374; 96375; 99285; G0378

== ENCOUNTER 2020-01-02 19:31 | Emergency (ER) | payer OTHER, BC ==
--- OUTSIDE RECORDS SUMMARY | 2020-01-02 19:34 | XMS REPORT ---
:1945 Author Organization [facility] t Address [address] [place] [address] Dr. Clements [address] [place] [address] Care Team Providers Name Role Phone TERRI Unavailable Unavailable SASHA HUGGINS Unavailable Unavailable Problems This patient has no known problems. Allergies, Adverse Reactions, Alerts This patient has no known allergies or adverse reactions. Medications This patient has no known medications. Results Test Description Test Time Test Comments Text Results Atomic Results Result Comments TISSUE EXAM 2019-11-21 Surgical Pathology Report 09:02:00 Case: [id number] Authorizing Provider: Nimesh Rodrigez MD Collected: 11/16/2019 1627 Ordering Location: [facility] Endoscopy Receive d: 11/17/2019 0806 Services Pathologist: Vini Singh MD Specimens: A) - Biopsy, Gastric, antrum B ) - Biopsy, Gastric, gastric bod y PART A GASTRIC ANTRUM, BIOPSY:ANTRAL MUCOSA WITH NONSPECIFIC REACTIVE GASTROPATHY AND INTESTINAL METAPLASIA.NEGATIVE FOR DYSPLASIA OR INVASIVE CARCINOMA.WARTHIN STARRY STA IN FOR HELICOBACTER IS NEGATIVE . PART B GASTRIC BODY, BIOPSY:OXYNTIC MUCOSA WITH M ILD CHRONIC INACTIVE GASTRITIS.NEGATIVE FOR INTESTINAL METAPLASIA, DYSPLASIA, OR INVASIVE CARCINOMA.WARTHIN STARRY STA IN FOR HELICOBACTER IS NEGATIVE . Signing Pathologist Direct Phone Line: [phone] signed by Vini Singh MD on 11/21/2019 at 9: 02 [id number], [id number] diagnosis: Epigastric abdom inal pain A. Gastric biopsy; B. Gastric biopsyA. Received in formalin labeled with the patient's name, accession nu mber and "antrum" are four haque-pi nk tissue fragments measuring u p to 0.2 cm in greatest dimension which are filtered and submi tted in toto in A1.B. Received in formalin labeled with the patient's name, accession nu mber and "gastric body" is a 0.2 x 0.2 x 0.1 cm haque-pink tissue fragment which is filtered a nd submitted in toto in B1. PA /pl PERFORMEDThe interpretation of this case included the use o f immunohistochemistry or spec ial stains.BLOCK A1- WARTHIN STARRYBLOCK B1- WARTHIN STARRYControl Slides Examine d: In-house known positive cont rols were evaluated along with th e test tissue. These control slides run alongside of the patients sample show appropr iate staining. Internal positive and negative controls when avail able are evaluated Immunohistochemistry technic al testing was performed at [facility], Pathology Laboratory where i t was developed and its performance characteristics were determined. It has not been cleared or approved by the U .S. Food and Drug Administration . The FDA has determined that such clearance or approval is not necessary. The test is used for clinical purposes. It should not be regarded as investigation al or for research. This labora tory is certified under the [employer] Improvement Amendments of 1988 (CLIA-88) as qualified to perform high complexity clinical laborato ry testing.[facility], Department o f Pathology, [address] [place] [address], [facility], Department o f Pathology, [address] [place] [address], [facility], Department o f Pathology, [address] [place] [address], [place] [address], XR Fluoroscopy in 2018-06-22 Patient: TORO RODRIGUEZ Imaging per Hour 15:26:54 Date/Time06/22/2018 13:30 CDTReason for ExamsurgeryReportLocation R 16Exam: Intraoperative fluoroscopyHistory: SurgeryComparison: None availableFindings:Intraopera tive fluoroscopy demonstrates posterior spinal fusion at t he L5-S1 levels. Please see operative notes for further detail.Fluoroscopy time: 2.52minutesNumber of images provided: 9Impression:Intraoperative fluoroscopy demonstrates posterior spinal fusion at t he L5-S1 levels. Please see operative notes for further detail. Final Dict ated by: MD Jo, Ryann FDictated DT/TM: 06/22/2018 3:25 pmSigned by: MD Jo, Ryann FSigned (Electronic Signatur e): 06/22/2018 3:26 pm NEEDLE EMG, 2 2018-01-18 INTRAOPERATIVE MONITORING R EPORT EXTREMITY 16:14:00 Patient Name: Toro Vinson nd [address] [facility] Ce nter Surgery Date: 01/15/18 Cadwel l Pro: [id number] Monitor ing began at 11:40 a.m and ended at 2:00p.m. Surgeon: Nitin Huggins M.D. Examining Physician : Jessie Milan M.D. Monitoring Technologist: Kemal Gonzales Procedure: Laminectomy and Placement of Spinal Cord Stimulator Stimulation Parameters: Ulnar nerves individually stimulated at t wristRate 4.7Hz, Intensity 3 5mA, Duration 0.3msPosterior Tibi al nerves individually stimulat ed at the ankleRate 4.7Hz, Intensity 70mA, Duration 0.3msFilters 30-500Hz, Notch Off Recording Parameters: CV, CP 3, CP4, CPz, and FPzTcMEPs of bilateral APB-ADM and Tibial is Anterior, Adductor Hallicus muscle groupsFree running EM G of the External Obliques (T7-T1 2, Vastus Lateralis (L2-L4), Tibialis Anterior L4-L5, LateralGastroc (L5-S2), Abdu ctor Hallicus (S1-S2) muscle groupsFree-running EEG recor ded with bipolar derivation, usi ng modified International 10/20 placements: C3-FPZ,C4-FPZ Description : Intraoperative neurophysiological monitorin g was performed using a combination of upperand lowe r extremity somatosensory evok ed potentials, TcMEPs, and Free-running EMG and EEGs. Areal-time connection with [facility] examining neurologist was established and maintained throughout theoperative procedure by the monitoring technologist. Upper extremit y somatosensory evoked potentialswere recorded centrally at the cervical an d corticals following ulnar ne rve stimulation. Lower extremitysomatosensory evoke d potentials were recorded centrally at the cervical an d cortical levels followingposterior tibial ne rve stimulation at the ankle. Ss ep baselines were established a nd monitored throughoutthe dura tion of the procedure. At closing , responses were judged to be essentially unchanged from thoseof post-positioning baselines. TcMEP responses w ere obtained post-positioning an d Upper extremities andlower extremities were present at baseline. TcMEP responses we re present in all extremities f or theremainder of the case and at closing, surgeon aware. Free-running EMG was quiet throughout and EEGremained symmetrical throughout the procedure with no focal hassan ges noted to occur. Conclusion : These results suggest the absence of untoward, seconda ry effects on anterior and posteriorcolumn function as a consequence of this surgical procedure. Anam Milan M.D., FACNS, FA AN, FAESG89.4, M54.16 [facility] PRODUCTION ENGINEER IN 2018-01-15 Reason for FINAL REPORT PATIENT ID: OR/30 MINUTE 14:19:00 exam:->Implant [id number] Fluoroscopy 1 vie w INCREMENTS spinal cord intraoperative 01/15/2018 2:1 3 PM stimulator, CLINICAL HISTORY: Instrument thoracic localization COMPARISON: Non e laminectomy available IMPRESSION: Please correlate imaging report findings with the procedure note prepared by Dr. Huggins, as an intra-procedure imaging consultation was not request ed. Reported fluoroscopy time: 2 9.9 seconds. Signed: Dalton Ortiz MDReport Verified Date/Time: 01/15/2018 14:19:13 Reading Location: [facility] B1 [id number] [facility] Room Electronical ly signed by: AMBER ORTIZ M.D. on 01/15/2018 02:19 PM HIV-1 ANTIGEN WITH HIV-1/2 ANTIBODY 2018-01-11 09:49:00 Test Item Value Reference Range Comments HIV-1 ANTIGEN WITH HIV 1\\T\\2 ANTIBODY (2) (Wire) (test Non reactive Nonreactive code = 2586) [id number] 09:32:00 Test Item Value Reference Range Comments GLUCOSE RANDOM (Wire) (test code = 652) 126 mg/dL 70-105 BASIC METABOLIC [id number] 09:32:00 Test Item Value Reference Range Comments SODIUM (BEAKER) (test 142 meq/L 136-145 code = 381) POTASSIUM (BEAKER) (test 4.1 meq/L 3.5-5.1 code = 379) CHLORIDE (BEAKER) (test 106 meq/L 98-107 code = 382) CO2 (BEAKER) (test code = 28 meq/L 22-29 355) BLOOD UREA NITROGEN 21 mg/dL 7-21 (BEAKER) (test code = 354) CREATININE (BEAKER) (test 1.06 mg/dL 0.57-1.25 code = 358) GLUCOSE RANDOM (BEAKER) 126 mg/dL 70-105 (test code = 652) CALCIUM (BEAKER) (test 9.5 mg/dL 8.4-10.2 code = 697) EGFR (BEAKER) (test code 68 mL/min/1.73 sq m EST IMATED GFR IS NOT = 1092) ACCURATE CREA TININE CLEARANCE IN PRE DICTING GLOMERULAR FILTR ATION RATE. ESTIMATED GFR IS NOT APPLICABLE F OR DIALYSIS PATIENT S. PROTHROMBIN [id number] 09:29:00 Test Item Value Reference Range Comments PROTIME (BEAKER) (test code = 759) 13.8 seconds 11.7-14.7 INR (BEAKER) (test code = 370) 1.1 <=5.9 RECOMMENDED COUMADIN/WARFARIN INR THERAPY RANGESSTANDARD DOSE: 2.0 - 3.0 Includes: PROPHYLAXIS forvenous thrombosis, systemic embolization; TREATMENT for venous thrombosis and/or pulmonary embolus.HIGH RISK: Target INR is 2.5-3.5 for patients with mechanical heart valves.CBC W/PLT COUNT & AUTO DIFFERENTIAL 2018-01-11 09:19:00 Test Item Value Reference Range Comments WHITE BLOOD CELL COUNT (BEAKER) (test code = 10.1 K/ L 3.5 -10.5 775) RED BLOOD CELL COUNT (BEAKER) (test code = 761) 4.87 M/ L 4.63-6.08 HEMOGLOBIN (BEAKER) (test code = 410) 14.6 GM/DL 13.7-17.5 HEMATOCRIT (BEAKER) (test code = 411) 46.1 % 40.1-51.0 MEAN CORPUSCULAR VOLUME (BEAKER) (test code = 94.7 fL 79 .0-92.2 753) MEAN CORPUSCULAR HEMOGLOBIN (BEAKER) (test code 30.0 pg 25.7-32.2 = 751) MEAN CORPUSCULAR HEMOGLOBIN CONC (BEAKER) (test 31.7 GM/DL 32.3-36.5 code = 752) RED CELL DISTRIBUTION WIDTH (BEAKER) (test code 12.7 % 11.6-14.4 = 412) PLATELET COUNT (BEAKER) (test code = 756) 286 K/CU MM 150-45 0 MEAN PLATELET VOLUME (BEAKER) (test code = 754) 10.1 fL 9.4-12.4 NUCLEATED RED BLOOD CELLS (BEAKER) (test code = 0 /100 WBC 0-0 413) NEUTROPHILS RELATIVE PERCENT (BEAKER) (test code 61 % = 429) LYMPHOCYTES RELATIVE PERCENT (BEAKER) (test code 27 % = 430) MONOCYTES RELATIVE PERCENT (BEAKER) (test code = 9 % 431) EOSINOPHILS RELATIVE PERCENT (BEAKER) (test code 3 % = 432) BASOPHILS RELATIVE PERCENT (BEAKER) (test code = 1 % 437) NEUTROPHILS ABSOLUTE COUNT (BEAKER) (test code = 6.16 K/ L 1.78-5.38 670) LYMPHOCYTES ABSOLUTE COUNT (BEAKER) (test code = 2.73 K/ L 1.32-3.57 414) MONOCYTES ABSOLUTE COUNT (BEAKER) (test code = 0.89 K/ L 0 .30-0.82 415) EOSINOPHILS ABSOLUTE COUNT (BEAKER) (test code = 0.25 K/ L 0.04-0.54 416) BASOPHILS ABSOLUTE COUNT (BEAKER) (test code = 0.07 K/ L 0 .01-0.08 417) IMMATURE GRANULOCYTES-RELATIVE PERCENT (BEAKER) 0 % 0-1 (test code = 2801)
[2020-01-02] MEDS ORDERED: MORPHINE 4 MG/ML SYR ONE ×2 (20:07→23:51)
[2020-01-02] MEDS ORDERED: ONDANSETRON 4 MG/2 ML VIAL ONE (20:07)
[2020-01-02] MEDS ORDERED: NA CHLORIDE 0.9% 1,000 ML ONE ×2 (20:07→22:54)
[2020-01-02 20:18] LABS: Absolute Lymphocytes (CBC) 2.5 K/uL (0.7-4.9); Basophils % 0.9 % (0-1.3); Lymphocytes % 24.9 % (15.3-44.8)
[2020-01-02 20:41] LABS: Albumin 3.4 g/dL (3.4-5.0); Bilirubin Direct 0.1 mg/dL (0-0.2); Bilirubin Total 0.4 mg/dL (0.2-1.0); Potassium 3.6 mmol/L (3.5-5.1); Protein, Total 7.2 g/dL (6.4-8.2)
--- NOTE | 2020-01-02 20:46 | RAD REPORT ---
EXAM DESCRIPTION: CT - Stone Protocol - 01/02/2020 8:36 pm CLINICAL HISTORY: Flank pain. FLANK PAIN COMPARISON: Stone Protocol dated 01/12/2019 TECHNIQUE: Axial images were obtained without oral or IV contrast. Lack of contrast limits solid org an and vascular assessment. The [id number] spans the entirety of the system partially obscuring uppermost abdomen and lung bases. Coronal reformatted images were obtained and reviewed. All CT scans are performed using dose optimization technique as appropriate and may include automated exposure control or mA/KV adjustment according to patient size. FINDINGS: The lower lung singletary are clear. Imaged portions of the liver and spleen show no suspicious findings on non-contrast imaging.Cholecyst ectomy clips. The pancreas and adrenal glands are normal. No pathologic lymphadenopathy in the abdome n or pelvis. There is a large 18 mm stone (750 HU) at the right UPJ resulting in mild right hydronephrosis. Additi onal small 4 mm stone is seen in the right renal pelvis a punctate stone is present in the inferior r ight renal calyx. Several small punctate calculi also present in the left kidney. No bowel obstruction, free air, free fluid or abscess. The appendix is not identified as a discrete s tructure, however, no secondary findings of appendicitis are identified. Hardware is present lower lumbar spine. IMPRESSION: Large 18 mm stone right UPJ resulting in mild right hydronephrosis.
[2020-01-02] MEDS ORDERED: HYDROMORPHONE HCL 1 MG/ML INJ ONE ×2 (20:55→21:37)
[2020-01-02] MEDS ORDERED: DIPHENHYDRAMINE 50 MG/ML VIAL ONE (21:42)
--- NOTE | 2020-01-02 21:47 | EDPHYS ---
Physician Documentation [facility] Name: Cas Denny Age: 74 yrs Sex: Male : 1945 Arrival Date: 01/02/2020 Time: 19:32 Bed 19 Private MD: ED Physician Naif Batista HPI: 01/01 19:52 This 74 yrs old Male presents to ER via Wheelchair with complaints of pm1 Possible Kidney Stone. 19:52 The patient complains of pain in the right low back. The pain radiates to the right pm1 lower quadrant. Onset: The symptoms/episode began/occurred this morning. Modifying factors: The symptoms are alleviated by nothing. the symptoms are aggravated by nothing. Associated signs and symptoms: Pertinent positives: Burning with urination, Pertinent negatives: fever, nausea, vomiting. Severity of pain: in the emergency department the pain is actually worse. The patient has experienced similar episodes in the past, multiple times, and the symptoms today are exactly the same. The patient has been recently seen by a physician: with different complaint(s), evaluation of his gastritis and hiatal hernia by signals collection technician. Swallowed pill cam this AM. Historical: - Allergies: 19:45 Tape; ca1 - PMHx: 19:45 "bad esophagus"; Back pain; CAD; chronic back pain; GERD; Hypertension; Kidney stones; ca1 Prostate Cancer; - PSHx: 19:45 neck surgery; back surgery; Appendectomy; Cholecystectomy; prostatectomy; Hernia ca1 repair; bladder dilation; DVR stimulator; Heart stents; - Immunization history:: Adult Immunizations up to date, Pneumococcal vaccine is up to date, Flu vaccine is up to date. - Social history:: Smoking status: Patient/guardian denies using tobacco, the patient reports quitting approximately 1 years ago. ROS: 19:52 Constitutional: Negative for fever, chills, and weight loss, Cardiovascular: Negative pm1 for chest pain, palpitations, and edema, Respiratory: Negative for shortness of breath, cough, wheezing, and pleuritic chest pain, Abdomen/GI: Negative for abdominal pain, nausea, vomiting, diarrhea, and constipation. 19:52 MS/Extremity: Negative for injury and deformity, Skin: Negative for injury, rash, and discoloration. 19:52 Neuro: Negative for headache, weakness, numbness, tingling, and seizure. 19:52 Back: Positive for flank pain, on the right. 19:52 : Positive for burning with urination. Exam: 19:52 Constitutional: This is a well developed, well nourished patient who is awake, alert, pm1 and in no acute distress. Head/Face: Normocephalic, atraumatic. Chest/axilla: Normal chest wall appearance and motion. Nontender with no deformity. No lesions are appreciated. 19:52 Skin: Warm, dry with normal turgor. Normal color with no rashes, no lesions, and no evidence of cellulitis. MS/ Extremity: Pulses equal, no cyanosis. Neurovascular intact. Full, normal range of motion. 19:52 Cardiovascular: Exam negative for acute changes, Rate: normal, Rhythm: Edema: is not appreciated. 19:52 Respiratory: Exam negative for acute changes, respiratory distress, shortness of breath, wheezing. 19:52 Abdomen/GI: Inspection: obese Palpation: abdomen is soft and non-tender, in all quadrants. 19:52 Back: CVA tenderness, that is moderate, is noted on the right. 19:52 Neuro: Exam negative for acute changes, Orientation: is normal, Mentation: is normal, Motor: is normal, moves all fours. Vital Signs: 19:40 BP 148 / 71; Pulse 89; Resp 17 S; Temp 98.4(O); Pulse Ox 97% on R/A; Weight 77.11 kg ca1 (R); Height 5 ft. 8 in. (172.72 cm) (R); Pain 10/10; 22:34 BP 146 / 60; Pulse 88; Resp 18; Pulse Ox 97% on R/A; mg2 22:51 BP 151 / 62; Pulse 96; Resp 18; Pulse Ox 96% on R/A; mg2 23:55 BP 151 / 64; Pulse 89; Resp 18; Temp 98.4; Pulse Ox 95% on R/A; mg2 19:40 Body Mass Index 25.85 (77.11 kg, 172.72 cm) ca1 MDM: 19:52 Patient medically screened. pm1 21:30 Counseling: I had a detailed discussion with the patient and/or guardian regarding: the pm1 historical points, exam findings, and any diagnostic results supporting the discharge/admit diagnosis, lab results, radiology results, the need for further work-up and treatment in the hospital. 21:39 Physician consultation: Jacob Roman MD was called at 21:39, was contacted at 21:39, pm1 regarding consult, patient's condition, after a discussion of the case, a recommendation for transfer for higher level of care is made, after discussion of the case, a recommendation for transfer because he will not be available to care for the patient tomorrow. He will be out of town. Request transfer for stent and he will manage the patient afterwards. 21:42 Data reviewed: vital signs. Data interpreted: Pulse oximetry: on room air is 97 %. pm1 Interpretation: normal. 22:32 Physician consultation: MD Yaneli Ariza was contacted at 22:32, regarding regarding pm1 transfer, patient's condition, and will see patient. 01/01 19:52 Order name: Basic Metabolic Panel; Complete Time: 20:43 pm1 01/01 19:52 Order name: CBC with Diff; Complete Time: 20:26 pm1 01/01 19:52 Order name: Creatinine for Radiology; Complete Time: 20:43 pm1 01/01 19:52 Order name: Hepatic Function; Complete Time: 20:43 pm1 01/01 19:52 Order name: Lipase; Complete Time: 20:43 pm1 01/01 19:52 Order name: Urine Microscopic Only; Complete Time: 02:02 pm01/02 02:05 Interpretation: Abnormal: URBC <5. pm1 01/01 19:52 Order name: CT Stone Protocol; Complete Time: 20:54 pm1 01/01 23:47 Order name: Urine Dipstick--Ancillary (enter results); Complete Time: 02:02 de 01/01 19:52 Order name: IV Saline Lock; Complete Time: 20:09 pm1 01/01 19:52 Order name: Labs collected and sent; Complete Time: 20:09 pm1 Administered Medications: 20:13 Drug: NS 0.9% 1000 ml Route: IV; Rate: 1000 ml; Site: right antecubital; mg2 21:44 Follow up: Response: No adverse reaction; IV Status: Completed infusion; IV Intake: mg2 1000ml 20:13 Drug: morphine 4 mg Route: IVP; Site: right antecubital; mg2 21:44 Follow up: Response: No adverse reaction mg2 20:13 Drug: Zofran (Ondansetron) 4 mg Route: IVP; Site: right antecubital; mg2 21:44 Follow up: Response: No adverse reaction mg2 20:56 Drug: Dilaudid 1 mg Route: IVP; Site: right antecubital; mg2 21:45 Follow up: Response: No adverse reaction; Pain is unchanged, physician notified; RASS: mg2 Alert and Calm (0) 21:40 Drug: Dilaudid 1 mg Route: IVP; Site: right antecubital; mg2 23:56 Follow up: Response: No adverse reaction; RASS: Alert and Calm (0) mg2 21:43 Drug: Benadryl 12.5 mg Route: IVP; Site: right antecubital; mg2 23:56 Follow up: Response: No adverse reaction; Marked relief of symptoms mg2 22:50 Drug: NS 0.9% 1000 ml Route: IV; Rate: 100 ml/hr; Site: right antecubital; mg2 23:55 Follow up: Response: No adverse reaction mg2 23:50 Drug: Rocephin 1 grams Route: IV; Rate: 1 bolus; Site: right antecubital; mg2 23:55 Follow up: Response: No adverse reaction; IV Status: Completed infusion mg2 23:50 Drug: morphine 4 mg Route: IVP; Site: right antecubital; mg2 23:57 Follow up: Response: No adverse reaction; administered prior to transfer. mg2 Disposition: 01/02 11:07 Co-signature as Attending Physician, Naif Batista MD I agree with the assessment and paige plan of care. Disposition: 01/02/20 21:[address] [facility]. Diagnosis is Hydronephrosis with renal and ureteral calculous obstruction. - Reason for transfer: Specialty. - Accepting physician is . [facility]. - Condition is Stable. - Problem is new. - Symptoms have improved. Signatures: Dispatcher [employer] EDMS Naif Batista MD MD cha Marinas, Patrick, ELECTROLOG OPERATOR ELECTROLOG OPERATOR pm1 Gilson Malhotra RN RN mg2 Ashia Borrego RN RN ca1 Corrections: (The following items were deleted from the chart) 01/01 23:59 21:46 01/02/2020 21:[address] [facility]. mg2 Diagnosis is Hydronephrosis with renal and ureteral calculous obstruction. Reason for transfer: Specialty. Accepting physician is [facility]. Condition is Stable. Problem is new. Symptoms have improved. pm1
--- NOTE | 2020-01-02 21:47 | ER ---
Nurse's Notes [facility] Name: Cas Denny Age: 74 yrs Sex: Male : 1945 Arrival Date: 01/02/2020 Time: 19:32 Bed 19 Private MD: Diagnosis: Hydronephrosis with renal and ureteral calculous obstruction Presentation: 01/01 19:40 Chief complaint: Patient states: I have a kidney stone. I know exactly cause I have 15 ca1 of this already. It's on the R side right now. Reports pain on R lower back. Reports nausea. Reports burning with urination. Took Hydrocodone 10mg an hour [employer]. Coronavirus screen: Proceed with normal triage. Patient denies a cough. Patient denies shortness of breath or difficulty breathing. Patient denies measured and/or subjective temperature greater than 100.4F prior to today's visit. Patient denies travel on a cruise ship or to a country the [facility] currently lists as an affected area. Patient denies contact with known and/or suspected case of COVID-19. Ebola Screen: Patient negative for fever greater than or equal to 101.5 degrees Fahrenheit, and additional compatible Ebola Virus Disease symptoms Patient denies exposure to infectious person. Patient denies travel to an Ebola-affected area in the 21 days before illness onset. No symptoms or risks identified at this time. Initial Sepsis Screen: Does the patient meet any 2 criteria? No. Patient's initial sepsis screen is negative. Does the patient have a suspected source of infection? No. Patient's initial sepsis screen is negative. Risk Assessment: Do you want to hurt yourself or someone else? Patient reports no desire to harm self or others. Onset of symptoms was January 02, 2020. 19:40 Method Of Arrival: Wheelchair ca1 19:40 Acuity: MIRZA 3 ca1 Historical: - Allergies: 19:45 Tape; ca1 - PMHx: 19:45 "bad esophagus"; Back pain; CAD; chronic back pain; GERD; Hypertension; Kidney stones; ca1 Prostate Cancer; - PSHx: 19:45 neck surgery; back surgery; Appendectomy; Cholecystectomy; prostatectomy; Hernia ca1 repair; bladder dilation; DVR stimulator; Heart stents; - Immunization history:: Adult Immunizations up to date, Pneumococcal vaccine is up to date, Flu vaccine is up to date. - Social history:: Smoking status: Patient/guardian denies using tobacco, the patient reports quitting approximately 1 years ago. Screenin:26 Abuse screen: Denies threats or abuse. Denies injuries from another. Nutritional mg2 screening: No deficits noted. Tuberculosis screening: No symptoms or risk factors identified. Fall Risk None identified. Assessment: 20:24 General: Appears in no apparent distress. comfortable, Behavior is calm, cooperative. mg2 Pain: Complains of pain in back. Neuro: Level of Consciousness is awake, alert, obeys commands, Oriented to person, place, time, situation. Cardiovascular: Capillary refill < 3 seconds Patient's skin is warm and dry. Respiratory: Airway is patent Respiratory effort is even, unlabored, Respiratory pattern is regular, symmetrical. GI: Bowel sounds Abd is soft and non tender. :. EENT: No signs and/or symptoms were reported regarding the EENT system. Derm: Skin is intact, is healthy with good turgor, Skin is pink, warm \\T\\ dry. normal. Musculoskeletal: Circulation, motion, and sensation intact. Capillary refill < 3 seconds. 20:25 Reassessment: patient sent to ct scan via stretcher. mg2 20:56 Reassessment: Patient appears in no apparent distress at this time. Patient and/or mg2 family updated on plan of care and expected duration. Pain level reassessed. Patient is alert, oriented x 3, equal unlabored respirations, skin warm/dry/pink. patient verbalized pain. provider informed. 22:35 Reassessment: patient advised for transfer. asked for urine but refused to move and mg2 cath. 23:27 Reassessment: report given to JENNIFER Yee of [facility]. pt signed the consent for mg2 transfer. 23:57 Reassessment: report given to EMS. pt given pain medicine prior to transfer. IV mg2 intact. patient in good condition. aoX4. Vital Signs: 19:40 BP 148 / 71; Pulse 89; Resp 17 S; Temp 98.4(O); Pulse Ox 97% on R/A; Weight 77.11 kg ca1 (R); Height 5 ft. 8 in. (172.72 cm) (R); Pain 10/10; 22:34 BP 146 / 60; Pulse 88; Resp 18; Pulse Ox 97% on R/A; mg2 22:51 BP 151 / 62; Pulse 96; Resp 18; Pulse Ox 96% on R/A; mg2 23:55 BP 151 / 64; Pulse 89; Resp 18; Temp 98.4; Pulse Ox 95% on R/A; mg2 19:40 Body Mass Index 25.85 (77.11 kg, 172.72 cm) ca1 ED Course: 19:32 Patient arrived in ED. fj1 19:43 Triage completed. ca1 19:45 Arm band placed on right wrist. ca1 19:51 Ran Vieyra NP is PHCP. pm1 19:51 Naif Batista MD is Attending Physician. pm1 19:58 Gilson Malhotra, JENNIFER is Primary Nurse. mg2 20:08 Initial lab(s) drawn, by me, sent to lab. Inserted saline lock: 22 gauge in right lt1 antecubital area, using aseptic technique. 20:14 Patient has correct armband on for positive identification. Door closed. Warm blanket mg2 given. 20:26 No provider procedures requiring assistance completed. mg2 20:37 CT Stone Protocol In Process Unspecified. EDMS 23:58 Patient transferred, IV remains in place. mg2 Administered Medications: 20:13 Drug: NS 0.9% 1000 ml Route: IV; Rate: 1000 ml; Site: right antecubital; mg2 21:44 Follow up: Response: No adverse reaction; IV Status: Completed infusion; IV Intake: mg2 1000ml 20:13 Drug: morphine 4 mg Route: IVP; Site: right antecubital; mg2 21:44 Follow up: Response: No adverse reaction mg2 20:13 Drug: Zofran (Ondansetron) 4 mg Route: IVP; Site: right antecubital; mg2 21:44 Follow up: Response: No adverse reaction mg2 20:56 Drug: Dilaudid 1 mg Route: IVP; Site: right antecubital; mg2 21:45 Follow up: Response: No adverse reaction; Pain is unchanged, physician notified; RASS: mg2 Alert and Calm (0) 21:40 Drug: Dilaudid 1 mg Route: IVP; Site: right antecubital; mg2 23:56 Follow up: Response: No adverse reaction; RASS: Alert and Calm (0) mg2 21:43 Drug: Benadryl 12.5 mg Route: IVP; Site: right antecubital; mg2 23:56 Follow up: Response: No adverse reaction; Marked relief of symptoms mg2 22:50 Drug: NS 0.9% 1000 ml Route: IV; Rate: 100 ml/hr; Site: right antecubital; mg2 23:55 Follow up: Response: No adverse reaction mg2 23:50 Drug: Rocephin 1 grams Route: IV; Rate: 1 bolus; Site: right antecubital; mg2 23:55 Follow up: Response: No adverse reaction; IV Status: Completed infusion mg2 23:50 Drug: morphine 4 mg Route: IVP; Site: right antecubital; mg2 23:57 Follow up: Response: No adverse reaction; administered prior to transfer. mg2 Intake: 21:44 IV: 1000ml; Total: 1000ml. mg2 Outcome: 21:46 ER care complete, transfer ordered by . pm1 23:58 Transferred by ground EMS to [facility], Transfer form completed. mg2 23:58 Condition: stable 23:58 Instructed on the need for transfer, Demonstrated understanding of instructions. 23:59 Patient left the ED. mg2 Signatures: Dispatcher [employer] EDMS Ran Vieyra, DIAMOND ASSORTER DIAMOND ASSORTER pm1 Gilson Malhotra RN RN mg2 Ashia Borrego RN RN ca1 Adriana, Livia 1 Michael Farias fj1 Corrections: (The following items were deleted from the chart) 19:46 19:40 Chief complaint: Patient states: I have a kidney stone. I know exactly cause I ca1 have 15 of this already. It's on the R side right now. Reports pain on R lower back. Reports nausea. Reports burning with urination. ca1 23:28 22:51 Pulse 96bpm; Resp 18bpm; Pulse Ox 96% RA; mg2 mg2
[2020-01-02] MEDS ORDERED: CEFTRIAXONE/SWI 1gm 1 GM/10 ML SYR ONE (22:54)
[2020-01-03 00:25] VITALS: TEMP 98.4
[2020-01-03 00:29] VITALS: BP 151/64; O2SAT 95
[2020-01-03 00:35] LABS: Urine Blood 2+ (NEG); Urine Glucose NEGATIVE (NEG); Urine Protein TRACE (NEG); Urine Specific Gravity 1.025 (1.005-1.030)
[2020-01-03 00:37] LABS: Urine Bacteria <20 /HPF (NONE SEEN); Urine Culture Reflex Order REFLEXED; Urine Mucus 1+ /HPF (NONE SEEN); Urine RBC <5 /HPF (NONE SEEN)
== END 2020-01-02 23:59 | disposition short-term general hospital (02) ==
LOC: ER 19:31
DX: N13.2 Hydronephrosis with renal and ureteral calculous obstruction (principal); I10 Essential (primary) hypertension; Z85.46 Personal history of malignant neoplasm of prostate; Z91.048 Other nonmedicinal substance allergy status; Z95.818 Presence of other cardiac implants and grafts
CPT/HCPCS: 96361; 87088; 85025; 87086; 80048; 36415; 80076; 83690; 76377; 74176; 96375; 96374; 99285; J1200; J1170 ×2; J0696; J7030 ×2; J2405; 81003; 81015

== ENCOUNTER 2020-01-07 02:20 | Inpatient (IN) | payer OTHER, BC ==
--- OUTSIDE RECORDS SUMMARY | 2020-01-07 02:25 | XMS REPORT ---
:1945 Author Organization [facility] t Address [address] [place] [address] Care Team Providers Name Role Phone JUAN MUÑOZ NEWTONLarissa Unavailable Unavailable TERRI Unavailable Unavailable SASHA HUGGINS Unavailable Unavailable Problems This patient has no known problems. Allergies, Adverse Reactions, Alerts This patient has no known allergies or adverse reactions. Medications This patient has no known medications. Results Test Description Test Time Test Comments Text Results Atomic Results Result Comments RAD, CHEST, 1 2020-01-06 Reason for exam:->PICC FINAL REPORT OLIVIA ENT ID: VIEW, NON DEPT 14:38:00 LINE PLACEMENTShould [id number] TECHNIQU E: Frontal this be performed at chest radiograph merissa ed the bedside?->Yes 01/06/2020. CLINICAL HIST ORY: PICC line COMPARISON STUDY: Chest radiograph performed 01/03/2020 Impression:Right-sided PICC is seen with the tip projected over the superior vena cava at the level of th e afshan. Nerve stimulator wires are again seen over th e thoracic spine. There is an increased airspace opacity i n the right middle/lower lobe. Stable bibasilar atelectasis in the left lower lobe.No pleural effusion or pneumothorax. Cardiomediastinal silhouette is normal in size. No pulmonary edema. Bones are osteopenic. Degenerative changes are seen in the spine. Signed: Ida Jenkinseport Verified Date/Time: 01/06/2020 14:38:59 Reading Location: [address] Radiology Reading Room ER 2020-01-06 Reason for FINAL REPORT PATIENT ID: NEPHROSTOMY, 13:01:00 exam:->needs PCN on [id number] Procedure: PERC, EXTERNAL the right for urgent Percutaneous nephr ostomy DRAIN decompression catheter placement. History: Suspected obstructed infected right kidney. Technical Coordinator: Jonas Ibarra M.D. [place] Printer: Not Mary hale Modality: Ultrasound and fluoroscopy. DOSE REDUCTION: The examination was performed according to departmental dose-optimization program. Fluoro time: 1.4 minutes Radiation dose: 32 mGy air Kerma. Number of images: 4 Sedation: Versed 2 mg and fentanyl 150 mcg was given intravenously for conscious sedation. Vital signs were monitored throughout the procedure by a dedicated RN under direct supervision of Dr. Ibarra, and remained stable. Physician intra-service sedation time was 20 minutes . Anesthesia: Lidocaine local infiltration Medicines: Not applicable Contrast medium: Isovue 300, 10 cc. Estimated blood loss: < 5 cc. Technique: A discussion of the risks, benefits, and alternatives was carried out with the patient. A written informed consent was obtained. The patient expressed understanding and agreed to proceed. A universal timeout was performed prior to starting the procedure. The procedure room personnel used personal protective equipment. The operators use d sterile gowns and gloves. e patient was laid prone on e procedure table. The percutaneous nephrostomy sit e was prepped with chlorhexidine gluconate and draped in the maximal steril e fashion. Using aseptic precautions an ultrasonographic evaluation was performed. There was hydronephrosis and hydroureter. Pertinent ultrasound images were store d for documentation in the PACS. An upper pole posterio r calyx was selected for access. After local anesthesia and dermatotomy, under real-time ultrasonographic guidance, a 21-gauge Chiba needle was advanced into the calyx. After confirming the recover y of urine, a guidewire was advanced into the collecting system under fluoroscopic guidance. Contrast injection confirmed satisfactory position of the access system. Over the wire, following sequential dilatation of the tract, an 8.5 Tuvaluan nephrostomy catheter was placed, pigtail locked in the renal pelvis. Contrast injection confirmed satisfactory position of the nephrostomy catheter. The catheter was secured to skin with nonabsorbable suture an d connected to a gravity drainage bag. An aseptic dressing was applied. A sample of urine was collecte d and sent to the laboratory. The patient was transferred to the recovery area and discharged from the department in stable condition. Complications: None immediate. Findings:As above. Impression:Successful ultrasound and fluoroscopic guided 8.5 Tuvaluan nephrostom y catheter placement in the right kidney via a posterior superior calyx as described above. Further management dictated by the clinical scenario. The nephrostomy catheter(s) should be exchanged at the latest in three months. Thank you for the opportunity to jigar t in the care of your patient. Signed: Jonas Ibarraeport Verified Date/Time: 01/06/2020 13:01:05 Reading Location: [place] [address] Angio Body Reading Room C METABOLIC PANEL 2020-01-06 06:50:00 Test Item Value Reference Range Comments SODIUM (BEAKER) (test code 139 meq/L 136-145 = 381) POTASSIUM (BEAKER) (test 3.3 meq/L 3.5-5.1 code = 379) CHLORIDE (BEAKER) (test 105 meq/L 98-107 code = 382) CO2 (BEAKER) (test code = 26 meq/L 22-29 355) BLOOD UREA NITROGEN 8 mg/dL 7-21 (BEAKER) (test code = 354) CREATININE (BEAKER) (test 0.71 mg/dL 0.57-1.25 code = 358) GLUCOSE RANDOM (BEAKER) 90 mg/dL 70-105 (test code = 652) CALCIUM (BEAKER) (test code 8.7 mg/dL 8.4-10.2 = 697) EGFR (BEAKER) (test code = 108 mL/min/1.73 sq m ESTIMATED GFR IS NOT 1092) ACCURATE CREA TININE CLEARANCE IN PRE DICTING GLOMERULAR FILTR ATION RATE. ESTIMATED GFR IS NOT APPLICABLE FOR D IALYSIS PATIENTS. Cardiovascular Surgical Tech ID - EMERSONCBC W/PLT COUNT & AUTO [id number] 06:45:00 Test Item Value Reference Range Comments WHITE BLOOD CELL COUNT (BEAKER) (test code = 5.9 K/ L 3.5 -10.5 775) RED BLOOD CELL COUNT (BEAKER) (test code = 761) 3.97 M/ L 4.63-6.08 HEMOGLOBIN (BEAKER) (test code = 410) 12.0 GM/DL 13.7-17.5 HEMATOCRIT (BEAKER) (test code = 411) 35.7 % 40.1-51.0 MEAN CORPUSCULAR VOLUME (BEAKER) (test code = 89.9 fL 79 .0-92.2 753) MEAN CORPUSCULAR HEMOGLOBIN (BEAKER) (test code 30.2 pg 25.7-32.2 = 751) MEAN CORPUSCULAR HEMOGLOBIN CONC (BEAKER) (test 33.6 GM/DL 32.3-36.5 code = 752) RED CELL DISTRIBUTION WIDTH (BEAKER) (test code 12.9 % 11.6-14.4 = 412) PLATELET COUNT (BEAKER) (test code = 756) 173 K/CU MM 150-45 0 MEAN PLATELET VOLUME (BEAKER) (test code = 754) 10.3 fL 9.4-12.4 NUCLEATED RED BLOOD CELLS (BEAKER) (test code = 0 /100 WBC 0-0 413) NEUTROPHILS RELATIVE PERCENT (BEAKER) (test code 58 % = 429) LYMPHOCYTES RELATIVE PERCENT (BEAKER) (test code 23 % = 430) MONOCYTES RELATIVE PERCENT (BEAKER) (test code = 17 % 431) EOSINOPHILS RELATIVE PERCENT (BEAKER) (test code 2 % = 432) BASOPHILS RELATIVE PERCENT (BEAKER) (test code = 0 % 437) NEUTROPHILS ABSOLUTE COUNT (BEAKER) (test code = 3.38 K/ L 1.78-5.38 670) LYMPHOCYTES ABSOLUTE COUNT (BEAKER) (test code = 1.36 K/ L 1.32-3.57 414) MONOCYTES ABSOLUTE COUNT (BEAKER) (test code = 0.98 K/ L 0 .30-0.82 415) EOSINOPHILS ABSOLUTE COUNT (BEAKER) (test code = 0.10 K/ L 0.04-0.54 416) BASOPHILS ABSOLUTE COUNT (BEAKER) (test code = 0.02 K/ L 0 .01-0.08 417) IMMATURE GRANULOCYTES-RELATIVE PERCENT (BEAKER) 0 % 0-1 (test code = 2801) BLOOD CULTURE IDENTIFICATION [id number] 09:34:00 Test Item Value Reference Range Comments LISTERIA MONOCYTOGENES (test code Not detected Not detected = 20160609) STAPHYLOCOCCUS (test code = Not detected Not detected 20160812) STAPHYLOCOCCUS AUREUS (test code Not detected Not detected = 20160813) STREPTOCOCCUS (test code = Not detected Not detected 6741662) STREPTOCOCCUS AGALACTIAE (GROUP Not detected Not detected B) (test code = 1579316) STREPTOCOCCUS PNEUMONIAE (test Not detected Not detected code = 4735578) STREPTOCOCCUS PYOGENES (GROUP A) Not detected Not detected (test code = 6205377) ACINETOBACTER BAUMANNII (test Not detected Not detected code = 2935381) HAEMOPHILUS INFLUENZAE (test code Not detected Not detected = 8499271) NEISSERIA MENINGITIDIS (test code Not detected Not detected = 0379744) ENTEROBACTERIACEAE (test code = Please refer to culture [id number]) results for ID a nd susceptibilities .. ENTEROBACTER CLOACOE COMPLEX Not detected Not detected (test code = 8006666) KLEBSIELLA OXYTOCA (test code = Not detected Not detected 4623111) KLEBSIELLA PNEUMONIAE (test code Not detected Not detected = 1650) PROTEUS (test code = 7885074) Pl ease refer to culture results for ID a nd susceptibilities .. SERRATIA MARCESCENS (test code = Not detected Not detected 8700816) ELISABETH ALBICANS (test code = Not detected Not detected 9324770) ELISABETH GLABRATA (test code = Not detected Not detected 5093394) ELISABETH KRUSEI (test code = Not detected Not detected 4991573) ELISABETH PARAPSILOSIS (test code = Not detected Not detected 4586382) ELISABETH TROPICALIS (test code = Not detected Not detected 8262548) ESCHERICHIA COLI (test code = Not detected Not detected 6732344) METHICILLIN-RESISTANCE GENE (test code = 3545050) VANCOMYCIN-RESISTANCE GENE (test code = 2525216) CARBAPENEM-RESISTANCE GENE (test Not detected Not detected code = 7627365) ENTEROCOCCUS-BEAKER (test code = Not detected Not detected 7207373) PSEUDOMONAS AERUGINOSA-BEAKER Not detected Not detected (test code = 9123654) Other bacteria and resistance markers not targeted by this PCR panel cannot be excluded; therefore clinical correlation and follow up of serology, culture results, and other molecular studies is required. The results are not intended to be used as the sole means for clinical diagnosis or patient management decisions. This sample was tested at the [facility] Molecular Diagnostics Laboratory using the FreshPlanetArray Blood Culture ID Panel. It is FDA cleared and has been verified and approved by the [facility] Molecular Diagnostics Laboratory for clinical use. This laboratory is CLIA-certified and College ofAmerican Pathologists (CAP)-accredited to perform high complexity testing.POCT-GLUCOSE [id number] 07:21:00 Test Item Value Reference Range Comments POC-GLUCOSE METER (BEAKER) 100 mg/dL 70-110 : EZRA PATRIZIA AT [facility] [address] (test code = 1538) [facility], [address]: Cardiovascular Surgical Tech/Technic alec ID = [id number] for GEOVANNI GARCIA LEE BASIC METABOLIC [id number] 05:16:00 Test Item Value Reference Range Comments SODIUM (BEAKER) (test 138 meq/L 136-145 code = 381) POTASSIUM (BEAKER) (test 3.7 meq/L 3.5-5.1 Specime n slightly code = 379) hemolyzed CHLORIDE (BEAKER) (test 109 meq/L 98-107 code = 382) CO2 (BEAKER) (test code = 25 meq/L 22-29 355) BLOOD UREA NITROGEN 12 mg/dL 7-21 (BEAKER) (test code = 354) CREATININE (BEAKER) (test 0.84 mg/dL 0.57-1.25 Specim en slightly code = 358) hemolyzed GLUCOSE RANDOM (BEAKER) 103 mg/dL 70-105 (test code = 652) CALCIUM (BEAKER) (test 8.3 mg/dL 8.4-10.2 code = 697) EGFR (BEAKER) (test code 89 mL/min/1.73 sq m EST IMATED GFR IS NOT = 1092) ACCURATE CREA TININE CLEARANCE IN PRE DICTING GLOMERULAR FILTR ATION RATE. ESTIMATED GFR IS NOT APPLICABLE F OR DIALYSIS PATIENT S. Cardiovascular Surgical Tech ID - LACBC W/PLT COUNT & AUTO [id number] 04:48:00 Test Item Value Reference Range Comments WHITE BLOOD CELL COUNT 7.7 K/ L 3.5-10.5 (BEAKER) (test code = 775) RED BLOOD CELL COUNT (BEAKER) 3.68 M/ L 4.63-6.08 (test code = 761) HEMOGLOBIN (BEAKER) (test 11.1 GM/DL 13.7-17.5 code = 410) HEMATOCRIT (BEAKER) (test 33.7 % 40.1-51.0 code = 411) MEAN CORPUSCULAR VOLUME 91.6 fL 79.0-92.2 Discorda nt MCV result (BEAKER) (test code = 753) michaelle red to previous result; clinical correla tion required. MEAN CORPUSCULAR HEMOGLOBIN 30.2 pg 25.7-32.2 (BEAKER) (test code = 751) MEAN CORPUSCULAR HEMOGLOBIN 32.9 GM/DL 32.3-36.5 CONC (BEAKER) (test code = 752) RED CELL DISTRIBUTION WIDTH 13.3 % 11.6-14.4 (BEAKER) (test code = 412) PLATELET COUNT (BEAKER) (test 149 K/CU MM 150-450 code = 756) MEAN PLATELET VOLUME (BEAKER) 10.4 fL 9.4-12.4 (test code = 754) NUCLEATED RED BLOOD CELLS 0 /100 WBC 0-0 (BEAKER) (test code = 413) NEUTROPHILS RELATIVE PERCENT 69 % (BEAKER) (test code = 429) LYMPHOCYTES RELATIVE PERCENT 17 % (BEAKER) (test code = 430) MONOCYTES RELATIVE PERCENT 12 % (BEAKER) (test code = 431) EOSINOPHILS RELATIVE PERCENT 1 % (BEAKER) (test code = 432) BASOPHILS RELATIVE PERCENT 0 % (BEAKER) (test code = 437) NEUTROPHILS ABSOLUTE COUNT 5.32 K/ L 1.78-5.38 (BEAKER) (test code = 670) LYMPHOCYTES ABSOLUTE COUNT 1.32 K/ L 1.32-3.57 (BEAKER) (test code = 414) MONOCYTES ABSOLUTE COUNT 0.94 K/ L 0.30-0.82 (BEAKER) (test code = 415) EOSINOPHILS ABSOLUTE COUNT 0.10 K/ L 0.04-0.54 (BEAKER) (test code = 416) BASOPHILS ABSOLUTE COUNT 0.02 K/ L 0.01-0.08 (BEAKER) (test code = 417) IMMATURE 0 % 0-1 GRANULOCYTES-RELATIVE PERCENT (BEAKER) (test code = 2801) POCT-GLUCOSE [id number] 21:37:00 Test Item Value Reference Range Comments POC-GLUCOSE METER (BEAKER) 128 mg/dL 70-110 : EZRA PATRIZIA AT [address] (test code = 1538) [facility], [address]: Cardiovascular Surgical Tech/Technic alec ID = [id number] for GEOVANNI GARCIA LEE POCT-GLUCOSE [id number] 17:12:00 Test Item Value Reference Range Comments POC-GLUCOSE METER (BEAKER) 110 mg/dL 70-110 : EZRA PATRIZIA AT [address] (test code = 1538) [facility], [address]: Cardiovascular Surgical Tech/Technic alec ID = [id number] for LORA WASHINGTON POCT-GLUCOSE [id number] 11:22:00 Test Item Value Reference Range Comments POC-GLUCOSE METER (BEAKER) 89 mg/dL 70-110 : EZRA ACHARYA AT [facility] [address] [facility] (test code = 1538) [facility], [address]: Cardiovascular Surgical Tech/Technic alec ID = [id number] for FREDDIE DIETZ POCT-GLUCOSE [id number] 06:18:00 Test Item Value Reference Range Comments POC-GLUCOSE METER (BEAKER) 106 mg/dL 70-110 : EZRA ACHARYA AT [facility] [address] [facility] (test code = 1538) [facility], [address]: Cardiovascular Surgical Tech/Technic alec ID = [id number] for AMADO GARCIA CBC W/PLT COUNT & AUTO [id number] 06:03:00 Test Item Value Reference Range Comments WHITE BLOOD CELL COUNT 11.3 K/ L 3.5-10.5 (BEAKER) (test code = 775) RED BLOOD CELL COUNT (BEAKER) 3.70 M/ L 4.63-6.08 (test code = 761) HEMOGLOBIN (BEAKER) (test 11.4 GM/DL 13.7-17.5 code = 410) HEMATOCRIT (BEAKER) (test 35.8 % 40.1-51.0 code = 411) MEAN CORPUSCULAR VOLUME 96.8 fL 79.0-92.2 Discorda nt MCV results (BEAKER) (test code = 753) michaelle red to previous results; clinica l correlation requ ired. MEAN CORPUSCULAR HEMOGLOBIN 30.8 pg 25.7-32.2 (BEAKER) (test code = 751) MEAN CORPUSCULAR HEMOGLOBIN 31.8 GM/DL 32.3-36.5 CONC (BEAKER) (test code = 752) RED CELL DISTRIBUTION WIDTH 13.9 % 11.6-14.4 (BEAKER) (test code = 412) PLATELET COUNT (BEAKER) (test 130 K/CU MM 150-450 code = 756) MEAN PLATELET VOLUME (BEAKER) 10.3 fL 9.4-12.4 (test code = 754) NUCLEATED RED BLOOD CELLS 0 /100 WBC 0-0 (BEAKER) (test code = 413) NEUTROPHILS RELATIVE PERCENT 79 % (BEAKER) (test code = 429) LYMPHOCYTES RELATIVE PERCENT 10 % (BEAKER) (test code = 430) MONOCYTES RELATIVE PERCENT 9 % (BEAKER) (test code = 431) EOSINOPHILS RELATIVE PERCENT 0 % (BEAKER) (test code = 432) BASOPHILS RELATIVE PERCENT 0 % (BEAKER) (test code = 437) NEUTROPHILS ABSOLUTE COUNT 8.95 K/ L 1.78-5.38 (BEAKER) (test code = 670) LYMPHOCYTES ABSOLUTE COUNT 1.16 K/ L 1.32-3.57 (BEAKER) (test code = 414) MONOCYTES ABSOLUTE COUNT 1.07 K/ L 0.30-0.82 (BEAKER) (test code = 415) EOSINOPHILS ABSOLUTE COUNT 0.05 K/ L 0.04-0.54 (BEAKER) (test code = 416) BASOPHILS ABSOLUTE COUNT 0.04 K/ L 0.01-0.08 (BEAKER) (test code = 417) IMMATURE 1 % 0-1 GRANULOCYTES-RELATIVE PERCENT (BEAKER) (test code = 2801) BASIC METABOLIC [id number] 05:55:00 Test Item Value Reference Range Comments SODIUM (BEAKER) (test 138 meq/L 136-145 code = 381) POTASSIUM (BEAKER) (test 3.7 meq/L 3.5-5.1 code = 379) CHLORIDE (BEAKER) (test 112 meq/L 98-107 code = 382) CO2 (BEAKER) (test code = 20 meq/L 22-29 355) BLOOD UREA NITROGEN 14 mg/dL 7-21 (BEAKER) (test code = 354) CREATININE (BEAKER) (test 1.00 mg/dL 0.57-1.25 code = 358) GLUCOSE RANDOM (BEAKER) 99 mg/dL 70-105 (test code = 652) CALCIUM (BEAKER) (test 7.9 mg/dL 8.4-10.2 code = 697) EGFR (BEAKER) (test code 73 mL/min/1.73 sq m EST IMATED GFR IS NOT = 1092) ACCURATE CREA TININE CLEARANCE IN PRE DICTING GLOMERULAR FILTR ATION RATE. ESTIMATED GFR IS NOT APPLICABLE F OR DIALYSIS PATIENT S. Cardiovascular Surgical Tech ID - DBLACTIC ACID, [id number] 05:41:00 Test Item Value Reference Range Comments LACTATE BLOOD VENOUS (2) 0.99 mmol/L 0.50-2.20 Specime n slightly hemolyzed (BEAKER) (test code = 2872) Cardiovascular Surgical Tech ID - DBPOCT-GLUCOSE [id number] 00:16:00 Test Item Value Reference Range Comments POC-GLUCOSE METER (BEAKER) 104 mg/dL 70-110 : EZRA PATRIZIA AT [facility] [address] [facility] (test code = 1538) [facility], [address]: Cardiovascular Surgical Tech/Technic alec ID = [id number] for AMADO GARCIA MMA LACTIC ACID, [id number] 18:07:00 Test Item Value Reference Range Comments LACTATE BLOOD VENOUS (2) 1.23 mmol/L 0.50-2.20 Specime n slightly hemolyzed (BEAKER) (test code = 2872) Cardiovascular Surgical Tech ID - NTPPOCT-GLUCOSE [id number] 17:51:00 Test Item Value Reference Range Comments POC-GLUCOSE METER (BEAKER) 98 mg/dL 70-110 : EZRA PATRIZIA AT [place] [id number] [facility] (test code = 1538) [facility], 7 30: Cardiovascular Surgical Tech/Technic alec ID = [id number] for SID JIMENEZ URINALYSIS W/ REFLEX URINE [id number] 17:19:00 Test Item Value Reference Range Comments COLOR (BEAKER) (test code = 470) Red CLARITY (BEAKER) (test code = 469) Cloudy SPECIFIC GRAVITY UA (BEAKER) (test code = 468) 1.014 1 .001-1.035 PH UA (BEAKER) (test code = 467) 6.5 5.0-8.0 PROTEIN UA (BEAKER) (test code = 464) 30 mg/dL Negative GLUCOSE UA (BEAKER) (test code = 365) Negative Negative KETONES UA (BEAKER) (test code = 371) Negative Negative BILIRUBIN UA (BEAKER) (test code = 462) Negative Negative BLOOD UA (BEAKER) (test code = 461) Large Negative NITRITE UA (BEAKER) (test code = 465) Negative Negative LEUKOCYTE ESTERASE UA (BEAKER) (test code = 466) Large Negative UROBILINOGEN UA (BEAKER) (test code = 463) 0.2 mg/dL 0.2-1 .0 RBC UA (BEAKER) (test code = 519) 52759 /HPF WBC UA (BEAKER) (test code = 520) 8314 /HPF SOURCE(BEAKER) (test code = 2795) Cardiovascular Surgical Tech ID - [auto]Cardiovascular Surgical Tech ID - techRAD, CHEST, 1 VIEW, NON [id number] 12:40:00Reason for exam:->bilateral cracklesShould this be performed at the bedside?->YesFINAL REPORT RAD, CHEST, 1 VIEW, NON DEPT INDICATION: bilateral crackles COMPARISON: None. FINDINGS: Portable frontal view of the chest. IMPRESSION: Support Lines: None. Lungsand pleura: Linear subsegmental atelectasis versus scarring at the left base. Right lung is clear.. No pneumothorax.Heart and mediastinum: Unremarkable contours.Additional findings: None. Signed: JR Kam Robert MDReport Verified Date/Time: 01/03/2020 12:40:06 Reading Location: [facility] Reading Room B-TYPE NATRIURETIC FACTOR (BNP)2020-01-03 12:02:00 Test Item Value Reference Range Comments B-TYPE NATRIURETIC PEPTIDE (BEAKER) (test code = 127 pg/mL 0-100 700) Cardiovascular Surgical Tech ID - NTPLACTIC ACID, [id number] 11:48:00 Test Item Value Reference Range Comments LACTATE BLOOD VENOUS (2) 2.69 mmol/L 0.50-2.20 Specime n slightly hemolyzed (BEAKER) (test code = 2872) Cardiovascular Surgical Tech ID - NTPLACTIC ACID, [id number] 09:24:00 Test Item Value Reference Range Comments LACTATE BLOOD VENOUS (2) 7.71 mmol/L 0.50-2.20 Specime n slightly hemolyzed (BEAKER) (test code = 2872) Cardiovascular Surgical Tech ID - NTPPOCT-CALCIUM [id number] 09:04:00 Test Item Value Reference Range Comments POC-CALCIUM IONIZED (BEAKER) 1.20 mmol/L 1.12-1.27 : T MERLE AT [facility] [address] (test code = 1536) [place], [address]: Cardiovascular Surgical Tech/Technic alec ID = [id number] for YOHANNES ESQUIVEL [id number] 09:04:00 Test Item Value Reference Range Comments POC-GLUCOSE (BEAKER) (test 144 mg/dL 70-110 : EZRA PATRIZIA AT [address] code = 1855) [facility], [address]: Cardiovascular Surgical Tech/Technic alec ID = [id number] for YOHANNES ESQUIVEL POCT-BLOOD GASES, [id number] 09:03:00 Test Item Value Reference Range Comments TEMP, CELSIUS-POC (BEAKER) (test code = 1834) FIO2-POC (BEAKER) (test code = 1835) PH, ARTERIAL-POC (BEAKER) 7.298 7.350-7.450 (test code = 1836) PCO2, ARTERIAL-POC (BEAKER) 33.3 mm Hg 35.0-45.0 (test code = 1837) PO2, ARTERIAL-POC (BEAKER) 82.0 mm Hg 80.0-90.0 (test code = 1838) SO2, ARTERIAL-POC (BEAKER) 95.0 % 96.0-97.0 (test code = 1839) HCO3, ARTERIAL-POC (BEAKER) 16.3 meq/L 21.0-29.0 (test code = 1840) BASE EXCESS, ARTERIAL-POC -10.0 meq/L -2.0-3.0 : TEST ED AT [address] (BEAKER) (test code = 1841) [facility], [address]: Cardiovascular Surgical Tech/Technic alec ID = [id number] for YOHANNES ESQUIVEL [id number] 09:03:00 Test Item Value Reference Range Comments POC-SODIUM (BEAKER) (test 141 meq/L 135-148 : TEST ED AT [address] code = 1542) [facility], [address]: Cardiovascular Surgical Tech/Technic alec ID = [id number] for YOHANNES ESQUIVEL [id number] 09:03:00 Test Item Value Reference Range Comments POC-POTASSIUM (BEAKER) (test 4.2 meq/L 3.6-5.5 : T MERLE AT [address] code = 1540) [facility], [address]: Cardiovascular Surgical Tech/Technic alec ID = [id number] for YOHANNES ESQUIVEL [id number] 09:03:00 Test Item Value Reference Range Comments POC-HEMOGLOBIN (BEAKER) 13.6 g/dL 13.0-16.8 : TESTED AT [facility] [address] [facility] (test code = 1856) [place], [address]: Cardiovascular Surgical Tech/Technic alec ID = [id number] for YOHANNES ESQUIVEL [id number] 09:03:00 Test Item Value Reference Range Comments POC-HEMATOCRIT (BEAKER) (test 40 % 40-50 : Cardiovascular Surgical Tech/Supply Analyst ID = [id number] code = 1857) for YOHANNES ESQUIVEL BASIC METABOLIC [id number] 05:52:00 Test Item Value Reference Range Comments SODIUM (BEAKER) (test 141 meq/L 136-145 code = 381) POTASSIUM (BEAKER) (test 3.9 meq/L 3.5-5.1 code = 379) CHLORIDE (BEAKER) (test 112 meq/L 98-107 code = 382) CO2 (BEAKER) (test code = 22 meq/L 22-29 355) BLOOD UREA NITROGEN 17 mg/dL 7-21 (BEAKER) (test code = 354) CREATININE (BEAKER) (test 1.30 mg/dL 0.57-1.25 code = 358) GLUCOSE RANDOM (BEAKER) 151 mg/dL 70-105 (test code = 652) CALCIUM (BEAKER) (test 8.5 mg/dL 8.4-10.2 code = 697) EGFR (BEAKER) (test code 54 mL/min/1.73 sq m EST IMATED GFR IS NOT = 1092) ACCURATE CREA TININE CLEARANCE IN PRE DICTING GLOMERULAR FILTR ATION RATE. ESTIMATED GFR IS NOT APPLICABLE F OR DIALYSIS PATIENT S. Cardiovascular Surgical Tech ID - [id number] [id number] 05:47:00 Test Item Value Reference Range Comments PROTIME (BEAKER) (test code = 759) 14.4 seconds 11.9-14.2 INR (BEAKER) (test code = 370) 1.2 <=5.9 PARTIAL THROMBOPLASTIN TIME (BEAKER) (test code 29.0 seconds 22.5-36.0 = 760) Effective 02/02/2019: PT Reference Range ChangeNew: 11.9-14.2 Previous: 11.7- 14.7RECOMMENDED COUMADIN/WARFARIN INR THERAPY RANGESSTANDARD DOSE: 2.0-3.0 Includes: PROPHYLAXIS for venous thrombosis, systemic embolization; TREATMENT for venous thrombosis and/or pulmonary embolus.HIGH RISK: Target INR is2.5-3.5 for patients wiht mechanical heart valves.CBC W/PLT COUNT & AUTO [id number] 05:38:00 Test Item Value Reference Range Comments WHITE BLOOD CELL COUNT (BEAKER) (test code = 18.6 K/ L 3.5 -10.5 775) RED BLOOD CELL COUNT (BEAKER) (test code = 761) 4.29 M/ L 4.63-6.08 HEMOGLOBIN (BEAKER) (test code = 410) 13.1 GM/DL 13.7-17.5 HEMATOCRIT (BEAKER) (test code = 411) 39.7 % 40.1-51.0 MEAN CORPUSCULAR VOLUME (BEAKER) (test code = 92.5 fL 79 .0-92.2 753) MEAN CORPUSCULAR HEMOGLOBIN (BEAKER) (test code 30.5 pg 25.7-32.2 = 751) MEAN CORPUSCULAR HEMOGLOBIN CONC (BEAKER) (test 33.0 GM/DL 32.3-36.5 code = 752) RED CELL DISTRIBUTION WIDTH (BEAKER) (test code 13.8 % 11.6-14.4 = 412) PLATELET COUNT (BEAKER) (test code = 756) 181 K/CU MM 150-45 0 MEAN PLATELET VOLUME (BEAKER) (test code = 754) 9.9 fL 9.4-12.4 NUCLEATED RED BLOOD CELLS (BEAKER) (test code = 0 /100 WBC 0-0 413) NEUTROPHILS RELATIVE PERCENT (BEAKER) (test code 87 % = 429) LYMPHOCYTES RELATIVE PERCENT (BEAKER) (test code 4 % = 430) MONOCYTES RELATIVE PERCENT (BEAKER) (test code = 8 % 431) EOSINOPHILS RELATIVE PERCENT (BEAKER) (test code 0 % = 432) BASOPHILS RELATIVE PERCENT (BEAKER) (test code = 0 % 437) NEUTROPHILS ABSOLUTE COUNT (BEAKER) (test code = 16.16 K/ L 1.78-5.38 670) LYMPHOCYTES ABSOLUTE COUNT (BEAKER) (test code = 0.74 K/ L 1.32-3.57 414) MONOCYTES ABSOLUTE COUNT (BEAKER) (test code = 1.43 K/ L 0 .30-0.82 415) EOSINOPHILS ABSOLUTE COUNT (BEAKER) (test code = 0.00 K/ L 0.04-0.54 416) BASOPHILS ABSOLUTE COUNT (BEAKER) (test code = 0.03 K/ L 0 .01-0.08 417) IMMATURE GRANULOCYTES-RELATIVE PERCENT (BEAKER) 1 % 0-1 (test code = 2801) URINALYSIS W/ REFLEX URINE [id number] 05:29:00 Test Item Value Reference Range Comments COLOR (BEAKER) (test code = 470) Yellow CLARITY (BEAKER) (test code = 469) Hazy SPECIFIC GRAVITY UA (BEAKER) (test code = 468) 1.022 1 .001-1.035 PH UA (BEAKER) (test code = 467) 5.5 5.0-8.0 PROTEIN UA (BEAKER) (test code = 464) 30 mg/dL Negative GLUCOSE UA (BEAKER) (test code = 365) Negative Negative KETONES UA (BEAKER) (test code = 371) 20 mg/dL Negative BILIRUBIN UA (BEAKER) (test code = 462) Negative Negative BLOOD UA (BEAKER) (test code = 461) Moderate Negative NITRITE UA (BEAKER) (test code = 465) Negative Negative LEUKOCYTE ESTERASE UA (BEAKER) (test code = 466) Large Negative UROBILINOGEN UA (BEAKER) (test code = 463) 0.2 mg/dL 0.2-1 .0 RBC UA (BEAKER) (test code = 519) 16 /HPF WBC UA (BEAKER) (test code = 520) 831 /HPF MUCUS (BEAKER) (test code = 1574) Rare SOURCE(BEAKER) (test code = 2795) Cardiovascular Surgical Tech ID - [auto]Cardiovascular Surgical Tech ID - techTISSUE [id number] 09:02:00Surgical Pathology Report Case: [id number] Authorizing Provider: Nimesh Herring MD Collected: 11/16/2019 1627 Ordering Location: [facility] Endoscopy Received: 11/17/2019 0806 Services Pathologist: Vini Singh MD Specimens: A) - Biopsy, Gastric, antrum B) -Biopsy, Gastric, gastric body PART A GASTRIC ANTRUM, BIOPSY:ANTRAL MUCOSA WITH NONSPECIFIC REACTIVE GASTROPATHY AND INTESTINAL METAPLASIA.NEGATIVE FOR D YSPLASIA OR INVASIVE CARCINOMA.WARTHIN STARRY STAIN FOR HELICOBACTER IS NEGATIVE. PART B GASTRIC BODY, BIOPSY:OXYNTIC MUCOSA WITH MILD CHRONIC INACTIVE GASTRITIS.NEGATIVE FOR INTESTINAL METAPLASIA, DYSPLASIA, OR INVASIVE CARCINOMA.WARTHIN STARRY STAIN FOR HELICOBACTER IS NEGATIVE. Signing Pathologist Direct Phone Line: [phone] signed by Vini Singh MD on 11/21/2019 at 9:02 [id number], [id number] diagnosis: Epigastric abdominal pain A. Gastric biopsy; B. Gastric biopsyA. Received in formalin labeled with the patient's name, accession number and "antrum" are four haque-pink tissue fragments measuring up to 0.2 cm in greatest dimension which are filtered and submitted in toto in A1.B. Received in formalin labeled with the patient's name, accession number and "gastric body" is a 0.2 x 0.2 x 0.1 cm haque- pink tissue fragment which is filtered and submitted in toto inB1. PA/pl PERFORMEDThe interpretation of this case included the use of immunohistochemistry or special stains.BLOCK A1- WARTHIN STARRYBLOCK B1- WARTHIN STARRYControl Slides Examined: In-house known positive controls were evaluated along with the test tissue. These control slides run alongside of the patients sample show appropriate staining. Internal positive and negative controls when available are evaluated Immunohistochemistry technical testing was performed at [facility], Pathology Laboratory where it was developed and its performance characteristics were determined. Ithas not been cleared or approved by the U.S. Food and Drug Administration. The FDA has determined that such clearance or approval is not necessary. The test is used for clinical purposes. It should notbe regarded as investigational or for research. This laboratory is certified under the Clinical Laboratory Improvement Amendments of 1988 (CLIA-88) as qualified to perform high complexity clinical laboratory testing.[facility], Department of Pathology, [address] [place] [id number], [facility], [address] [place] [address], [place] [address], [facility], [facility],[address] [place] [address], [place] [address], xr Fluoroscopy in Imaging per [id number] 15:26:54Patient: CAS RODRIGUEZ Date/Time06/22/2018 13:30 CDTReason for ExamsurgeryReportLocation R 16Exam: Intraoperative fluoroscopyHistory: SurgeryC omparison: None availableFindings:Intraoperative fluoroscopy demonstrates posterior spinal fusion atthe L5-S1 levels. Please see operative notes for further detail.Fluoroscopy time: 2.52minutesNumber of images provided: 9Impression:Intraoperative fluoroscopy demonstrates posterior spinal fusion at the L5-S1 levels. Please see operative notes for further detail. Final Dictated by: MD Jo, Ryann FDictated DT/TM: 06/22/2018 3:25 pmSigned by: MD Jo, Ryann FSigned (Electronic Signature): 06/22/2018 3:26 pmNEEDLE EMG, 2 [id number] 16:14:00INTRAOPERATIVE MONITORING REPORT Patient Name: Cas Rodriguez [facility] Surgery Date: 01/15/18 [place] Pro: [id number] Monitoring began at 11:40 a.m and ended at 2:00p.m. Surgeon: Nitin Huggins M.D. Examining Physician : Sonido Milan M.D. Monitoring Technologist: Adam Mejia CNIMProcedure: Laminectomy and Placement of Spinal Cord Stimulator Stimulation Parameters: Ulnar nerves individually stimulated at the wristRate 4.7Hz, Intensity 35mA, Duration 0.3msPosterior Tibial nervesindividually stimulated at the ankleRate 4.7Hz, Intensity 70mA, [...] Intraoperative neurophysiological monitoring was performed using a combinationof upperand lower extremity somatosensory evoked potentials, TcMEPs, [...] Sonido Milan M.D., FACNS, FAAN, FAESG89.4, M54.16 IA ALEX IN OR/30 MINUTE INCREMENTS 2018-01-15 14:19:00Reason for exam:->Implant spinal cord stimulator, thoracic laminectomyFINAL REPORT Fluoroscopy 1 view intraoperative 01/15/2018 2:13 PM CLINICAL HISTORY: Instrument localization COMPARISON: None available IMPRESSION: Please correlate imaging report findings with the procedure note prepared by Dr. Huggins, as an intra-procedure imaging consultation was not requested. Reported fluoroscopy time: 29.9 seconds. Signed: John Alfarocox monett Verified Date/Time: 01/15/2018 14:19:13 Reading Location: [address] Consult Reading Room HIV-1 ANTIGEN WITH HIV-1/2 ANTIBODY 2018-01-11 09:49:00 Test Item Value Reference Range Comments HIV-1 ANTIGEN WITH HIV 1\\T\\2 ANTIBODY (2) Nonreactive Nonrea ctive (BEAKER) (test code = 2586) [id number] 09:32:00 Test Item Value Reference Range Comments GLUCOSE RANDOM (BEAKER) (test code = 652) 126 mg/dL 70-105 BASIC METABOLIC [id number] 09:32:00 Test Item Value Reference Range Comments [...] APPLICABLE F OR DIALYSIS PATIENT S. PROTHROMBIN TIME/[id number] 09:29:00 Test Item Value Reference Range Comments [...]
[2020-01-07] MEDS ORDERED: MORPHINE 2 MG/ML SYR ONE ×2 (02:56→06:43)
[2020-01-07] MEDS ORDERED: ONDANSETRON 4 MG/2 ML VIAL ONE (02:56)
[2020-01-07 02:58] LABS: Hematocrit 37.7 % (39.6-49.0); MPV 8.1 fL (7.6-11.3)
[2020-01-07 03:02] LABS: Absolute Lymphocytes (CBC) 1.5 K/uL (0.7-4.9); Basophils % 0.8 % (0-1.3); Lymphocytes % 23.6 % (15.3-44.8); RBC Red Blood Cell Count 4.21 M/uL (4.33-5.43)
[2020-01-07 03:03] LABS: Protime INR 1.11
[2020-01-07 03:16] LABS: ALT/SGPT 34 U/L (12-78); AST/SGOT 25 U/L (15-37); Albumin 2.7 g/dL (3.4-5.0); Alkaline Phosphatase 65 U/L (45-117); BUN Blood Urea Nitrogen 8 mg/dL (7-18); Bicarbonate 25 mmol/L (21-32); Bilirubin Direct 0.2 mg/dL (0-0.2); Bilirubin Total 0.6 mg/dL (0.2-1.0); Glucose Level 126 mg/dL (74-106); Magnesium 1.6 mg/dL (1.8-2.4); NT PRO-BNP 248 pg/mL (<450); Protein, Total 6.9 g/dL (6.4-8.2); Sodium Level 142 mmol/L (136-145); Troponin (Emerg Dept Use Only) < 0.02 ng/mL (0.0-0.045)
[2020-01-07] MEDS ORDERED: NA CHLORIDE 0.9% 1,000 ML ONE (03:26)
[2020-01-07] MEDS ORDERED: KCL 20 MEQ/100 mL IVPB 20 MEQ/100 ML BAG IV ONE (03:55)
[2020-01-07] MEDS ORDERED: NA CHLORIDE 0.9% 0 ML ONE (03:55)
[2020-01-07] MEDS ORDERED: MAGNESIUM SULFATE 1 gm IVPB 1 GM/100 ML BAG IV ONE (03:55)
[2020-01-07] MEDS ORDERED: POTASSIUM CL SA 10 MEQ TAB PO ONE (03:55)
--- NOTE | 2020-01-07 05:45 | ER ---
Nurse's Notes [facility] Name: Cas Denny Age: 74 yrs Sex: Male : 1945 Arrival Date: 01/07/2020 Time: 02:22 Bed 7 Private MD: Diagnosis: Acute dyspnea. Right renal calculus. S/P stent placement Presentation: 01/06 02:34 Chief complaint: Patient states: "I can't breath. I think it is my hernia pressing on jd3 my diaphragm. my oxygen at home was 86%. My stomach is hurting pretty good and I am having a little bit of diarrhea.". Coronavirus screen: Proceed with normal triage. Ebola Screen: Patient negative for fever greater than or equal to 101.5 degrees Fahrenheit, and additional compatible Ebola Virus Disease symptoms. Initial Sepsis Screen: Does the patient meet any 2 criteria? No. Patient's initial sepsis screen is negative. Does the patient have a suspected source of infection? No. Patient's initial sepsis screen is negative. Risk Assessment: Do you want to hurt yourself or someone else? Patient reports no desire to harm self or others. Onset of symptoms was January 07, 2020. 02:34 Method Of Arrival: Wheelchair jd3 02:34 Acuity: MIRZA 3 jd3 Triage Assessment: 02:39 Respiratory: Onset: The symptoms/episode began/occurred just prior to arrival, the jd3 patient has mild shortness of breath. Historical: - Allergies: 02:36 Tape; jd3 - Home Meds: 02:37 megestrol 20 mg Oral tab [Active]; Sucralfate Oral [Active]; gabapentin 300 mg oral cap rr5 [Active]; metoprolol succinate Oral [Active]; atorvastatin 20 mg Oral tab 1 tab once daily [Active]; amlodipine oral [Active]; fentanyl 100 mcg/hr Topical pt72 1 patch every 72 hours [Active]; Allopurinol Oral [Active]; Stool Softener oral oral [Active]; kameron boost-vitamin [Active]; - PMHx: 02:36 Hypertension; GERD; Back pain; "bad esophagus"; CAD; Prostate Cancer; Kidney stones; jd3 chronic back pain; - PSHx: 02:36 back surgery; neck surgery; Hernia repair; bladder dilation; Appendectomy; jd3 Cholecystectomy; prostatectomy; DVR stimulator; Heart stents; Kidney stents; - Immunization history:: Adult Immunizations up to date. - Social history:: Smoking status: Patient/guardian denies using tobacco, the patient reports quitting approximately 2 years ago. Screenin:39 Abuse screen: Denies threats or abuse. Nutritional screening: No deficits noted. jd3 Tuberculosis screening: No symptoms or risk factors identified. Fall Risk Ambulatory Aid- Crutches/Cane/Walker (15 pts). Gait- Weak (10 pts.). Mental Status- Oriented to own ability (0 pts). Total Calhoun Fall Scale indicates Low Risk Score (25-44 pts). Fall prevention measures have been instituted. Side Rails Up X 2 Placed close to Nursing Station Frequent Obs/Assesments occuring. Assessment: 02:37 General: Appears uncomfortable, Behavior is calm, cooperative, appropriate for age. jd3 Pain: Complains of pain in right lower quadrant Quality of pain is described as aching, tender. Neuro: Level of Consciousness is awake, alert, obeys commands, Oriented to person, place, time, situation. Cardiovascular: Denies chest pain, Heart tones S1 S2 present Capillary refill < 3 seconds Patient's skin is warm and dry. Respiratory: Reports shortness of breath at rest Airway is patent Respiratory effort is even, unlabored, Respiratory pattern is regular, symmetrical, Breath sounds are clear bilaterally. Denies cough. GI: Abdomen is round non-distended, Bowel sounds present X 4 quads. Abd is soft X 4 quads Abdomen is tender to palpation in right lower quadrant Reports lower abdominal pain, diarrhea, Patient currently denies constipation, nausea, vomiting. : No signs and/or symptoms were reported regarding the genitourinary system. EENT: No signs and/or symptoms were reported regarding the EENT system. Derm: Skin is intact, Skin is dry, Skin is normal, Skin temperature is warm. Musculoskeletal: Circulation, motion, and sensation intact. Range of motion: intact in all extremities. 02:59 Reassessment: Patient appears in no apparent distress at this time. Patient and/or jd3 family updated on plan of care and expected duration. Pain level reassessed. Patient is alert, oriented x 3, equal unlabored respirations, skin warm/dry/pink. Patient states feeling better. 03:06 Reassessment: D dimer 4449 called by [facility]. ED provider aware. rr5 03:28 Reassessment: Patient appears in no apparent distress at this time. Patient and/or jd3 family updated on plan of care and expected duration. Pain level reassessed. Patient is alert, oriented x 3, equal unlabored respirations, skin warm/dry/pink. awaiting results and CT scan. 04:33 Reassessment: Patient appears in no apparent distress at this time. Patient and/or jd3 family updated on plan of care and expected duration. Pain level reassessed. Patient is alert, oriented x 3, equal unlabored respirations, skin warm/dry/pink. awaiting results. Neuro: Level of Consciousness is awake, alert, obeys commands, Oriented to person, place, time, situation. Cardiovascular: Denies chest pain, Capillary refill < 3 seconds Patient's skin is warm and dry. Respiratory: Reports shortness of breath at rest Airway is patent Respiratory effort is even, unlabored, Respiratory pattern is regular, symmetrical, Denies cough. 05:35 Reassessment: No changes from previously documented assessment. Patient and/or family jd3 updated on plan of care and expected duration. Pain level reassessed. Patient is alert, oriented x 3, equal unlabored respirations, skin warm/dry/pink. Hospitalist at bedside discussing plan of care. 06:20 Reassessment: Patient and/or family updated on plan of care and expected duration. Pain jd3 level reassessed. Patient is alert, oriented x 3, equal unlabored respirations, skin warm/dry/pink. awaiting admission. pt reporting wanting to leave ama. provider notified. nurse at bedside discussing plan of care with pt. 06:53 Reassessment: Patient and/or family updated on plan of care and expected duration. Pain jd3 level reassessed. Patient is alert, oriented x 3, equal unlabored respirations, skin warm/dry/pink. pt reporting he will stay. provider notified. 07:07 General: Appears uncomfortable, Behavior is calm, cooperative. Pain: Complains of pain rb1 in right lower quadrant Pain currently is 8 out of 10 on a pain scale. Quality of pain is described as Pt. has a Fentanyl 100 mcg/hr patch on the right lower quadrant. Neuro: Level of Consciousness is awake, alert, obeys commands, Oriented to person, place, time, situation. Cardiovascular: Capillary refill < 3 seconds Patient's skin is warm and dry. Respiratory: Airway is patent Respiratory effort is even, unlabored, Respiratory pattern is regular, symmetrical. : Reports drain in the right kidney per pt. report. 08:10 Reassessment: [facility] rb1 Vital Signs: 02:36 BP 147 / 78; Pulse 104; Resp 18 S; Temp 97.9(O); Pulse Ox 96% on R/A; Weight 77.11 kg jd3 (R); Height 5 ft. 8 in. (172.72 cm) (R); Pain 7/10; 03:28 BP 161 / 75; Pulse 100; Resp 17 S; Pulse Ox 96% on R/A; jd3 04:34 BP 159 / 76; Pulse 97; Resp 17 S; Pulse Ox 96% on R/A; jd3 05:35 BP 140 / 89; Pulse 108; Resp 19 S; Pulse Ox 96% on R/A; jd3 06:53 BP 149 / 76; Pulse 100; Resp 18 S; Pulse Ox 96% on R/A; jd3 07:53 BP 149 / 90; Pulse 96; Resp 19; Pulse Ox 95% on R/A; Pain 8/10; rb1 02:36 Body Mass Index 25.85 (77.11 kg, 172.72 cm) jd3 ED Course: 02:22 Patient arrived in ED. fj1 02:23 Edy Gamez MD is Attending Physician. pkl 02:33 Brian Plaza RN is Primary Nurse. jd3 02:35 Triage completed. jd3 02:37 Arm band placed on. jd3 02:39 Patient has correct armband on for positive identification. Placed in gown. Bed in low jd3 position. Call light in reach. Side rails up X 1. Adult w/ patient. Pulse ox on. NIBP on. 02:59 Accessed PICC line. Clean \\T\\ dry. Dressing intact. Good blood return. Flushes easily. jd3 03:04 XRAY Chest (1 view) In Process Unspecified. EDMS 04:16 CT Chest For PE Angio In Process Unspecified. EDMS 05:43 Adebayo Prasad is Hospitalizing Provider. pkl 13:29 No provider procedures requiring assistance completed. Patient admitted, IV remains in rb1 place. Administered Medications: 02:57 Drug: morphine 2 mg Route: IVP; Site: PICC; jd3 02:59 Drug: Zofran (Ondansetron) 4 mg Route: IVP; Site: PICC; jd3 03:26 Drug: NS 0.9% 1000 ml Route: IV; Rate: 125 ml/hr; Site: PICC; jd3 04:21 Drug: Potassium Chloride 20 mEq Route: IV; Rate: calculated rate; Site: PICC; jd3 04:21 Drug: K-Dur 20 mEq Route: PO; jd3 04:22 Drug: Magnesium Sulfate 1 grams Route: IVPB; Infused Over: 1 hrs; Site: PICC; jd3 06:42 Drug: morphine 2 mg Route: IVP; Site: PICC; jd3 08:45 Drug: Dilaudid 2 mg Route: IVP; Site: PICC; rb1 09:00 Follow up: Response: No adverse reaction; Pain is decreased rb1 11:29 CANCELLED (nurse discretion): Dilaudid 2 mg IVP once; RASS on ADMIN: Combtv4, Very rb1 Agttd3, Agttd2, Rstlss1, AlertClm0, Drwsy-1, Lt Sdtn-2, Mod Sdtn-3, Dp Sdtn-4, UnArsble-5 Outcome: 05:45 Decision to Hospitalize by Provider. pkl 13:29 Admitted to Med/surg accompanied by tech, via stretcher, room 202, with chart, Report rb1 called to JENNIFER Perez. All questions asked and answered. 13:29 Condition: stable 13:29 Instructed on the need for admit. 13:31 Patient left the ED. rb1 Signatures: Dispatcher [employer] EDMS Edy Gamez MD MD pkl Clara Tomlin, RN RN rb1 Brian Plaza RN RN jd3 Isrrael Wong RN RN rr5 Michael Farias 1 Corrections: (The following items were deleted from the chart) 03:28 02:59 Reassessment: Patient appears in no apparent distress at this time. Patient is jd3 alert, oriented x 3, equal unlabored respirations, skin warm/dry/pink. Patient is alert/active/playful, equal unlabored respirations, skin warm/dry/pink. Patient states feeling better. jd3 05:36 05:35 Reassessment: Patient and/or family updated on plan of care and expected jd3 duration. Pain level reassessed. Patient is alert, oriented x 3, equal unlabored respirations, skin warm/dry/pink. Hospitalist at bedside discussing plan of care. jd3 11:28 08:45 Dilaudid 2 mg IVP in PICC rb1 rb1
--- NOTE | 2020-01-07 05:45 | EDPHYS ---
Physician Documentation [facility] Pamela Name: Cas Denny Age: 74 yrs Sex: Male : 1945 Arrival Date: 01/07/2020 Time: 02:22 Bed 7 Private MD: ED Physician Edy Gamez HPI: 01/06 02:52 This 74 yrs old Male presents to ER via Wheelchair with complaints of pkl Breathing Difficulty. 02:52 The patient has shortness of breath at rest. Onset: The symptoms/episode began/occurred pkl today. Patient was admitted to [facility] on Thursday this week for kidney stone ( 18 mm ) in the right kidney. A stent was placed in the right kidney. Patient needed O2 while in the hospital. He was discharged yesterday and was scheduled to receive IV antibiotic daily as outpatient. Patient said tonight he had difficulty breathing and noticed his pulse oximeter was only 86%.. Historical: - Allergies: 02:36 Tape; jd3 - Home Meds: 02:37 megestrol 20 mg Oral tab [Active]; Sucralfate Oral [Active]; gabapentin 300 mg oral cap rr5 [Active]; metoprolol succinate Oral [Active]; atorvastatin 20 mg Oral tab 1 tab once daily [Active]; amlodipine oral [Active]; fentanyl 100 mcg/hr Topical pt72 1 patch every 72 hours [Active]; Allopurinol Oral [Active]; Stool Softener oral oral [Active]; kameron boost-vitamin [Active]; - PMHx: 02:36 Hypertension; GERD; Back pain; "bad esophagus"; CAD; Prostate Cancer; Kidney stones; jd3 chronic back pain; - PSHx: 02:36 back surgery; neck surgery; Hernia repair; bladder dilation; Appendectomy; jd3 Cholecystectomy; prostatectomy; DVR stimulator; Heart stents; Kidney stents; - Immunization history:: Adult Immunizations up to date. - Social history:: Smoking status: Patient/guardian denies using tobacco, the patient reports quitting approximately 2 years ago. ROS: 02:52 Eyes: Negative for injury, pain, redness, and discharge, ENT: Negative for injury, pkl pain, and discharge, Neck: Negative for injury, pain, and swelling, Cardiovascular: Negative for chest pain, palpitations, and edema. 02:52 Respiratory: Positive for shortness of breath. 02:52 Abdomen/GI: Negative for abdominal pain, nausea, vomiting, and diarrhea. 02:52 Back: Negative for acute changes. 02:52 : Negative for urinary symptoms. 02:52 MS/extremity: Negative for acute changes. 02:52 Skin: Negative for rash. 02:52 Neuro: Negative for altered mental status. Exam: 02:52 Head/Face: Normocephalic, atraumatic. Eyes: Pupils equal round and reactive to light, pkl extra-ocular motions intact. Lids and lashes normal. Conjunctiva and sclera are non-icteric and not injected. Cornea within normal limits. Periorbital areas with no swelling, redness, or edema. ENT: Nares patent. No nasal discharge, no septal abnormalities noted. Tympanic membranes are normal and external auditory canals are clear. Oropharynx with no redness, swelling, or masses, exudates, or evidence of obstruction, uvula midline. Mucous membranes moist. Neck: Trachea midline, no thyromegaly or masses palpated, and no cervical lymphadenopathy. Supple, full range of motion without nuchal rigidity, or vertebral point tenderness. No Meningismus. Chest/axilla: Normal chest wall appearance and motion. Nontender with no deformity. No lesions are appreciated. Cardiovascular: Regular rate and rhythm with a normal S1 and S2. No gallops, murmurs, or rubs. Normal PMI, no JVD. No pulse deficits. 02:52 Respiratory: the patient does not display signs of respiratory distress, Respirations: normal, Breath sounds: are clear throughout. 02:52 Abdomen/GI: Bowel sounds: normal, Palpation: abdomen is soft and non-tender, in all quadrants. 02:52 Back: Exam negative for acute changes. 02:52 : Exam negative for acute changes. 02:52 Musculoskeletal/extremity: Exam is negative for acute changes. 02:52 Skin: Exam negative for rash. 02:52 Neuro: Orientation: is normal, Mentation: is normal, Cranial nerves: grossly normal, Motor: is normal. Vital Signs: 02:36 BP 147 / 78; Pulse 104; Resp 18 S; Temp 97.9(O); Pulse Ox 96% on R/A; Weight 77.11 kg jd3 (R); Height 5 ft. 8 in. (172.72 cm) (R); Pain 7/10; 03:28 BP 161 / 75; Pulse 100; Resp 17 S; Pulse Ox 96% on R/A; jd3 04:34 BP 159 / 76; Pulse 97; Resp 17 S; Pulse Ox 96% on R/A; jd3 05:35 BP 140 / 89; Pulse 108; Resp 19 S; Pulse Ox 96% on R/A; jd3 06:53 BP 149 / 76; Pulse 100; Resp 18 S; Pulse Ox 96% on R/A; jd3 07:53 BP 149 / 90; Pulse 96; Resp 19; Pulse Ox 95% on R/A; Pain 8/10; rb1 02:36 Body Mass Index 25.85 (77.11 kg, 172.72 cm) jd3 MDM: 02:23 Patient medically screened. pkl 05:02 Data reviewed: vital signs, nurses notes, lab test result(s), EKG, radiologic studies, pkl CT scan, plain films. 05:05 ED course: D-Dimer ( 4449 ) CT Chest PE protocol ordered. No definite large or central pkl PE noted. Patient does not feel comfortable going home. Talked to Dr. Prasad, will see patient in ER and evaluate.. 05:41 ED course: Dr. Prasad evaluated patient, for observation. pkl 06:20 ED course: Patient decided to leave. To sign AMA. pkl 06:22 ED course: Dr. Prasad notified. Patient signing AMA. pkl 01/06 02:46 Order name: Basic Metabolic Panel pkl 01/06 02:46 Order name: CBC with Diff; Complete Time: 03:10 pkl 01/06 02:46 Order name: LFT's; Complete Time: 03:40 pkl 01/06 02:46 Order name: Magnesium; Complete Time: 03:40 pkl 01/06 02:46 Order name: NT PRO-BNP; Complete Time: 03:40 pkl 01/06 02:46 Order name: PT-INR; Complete Time: 03:10 pkl 01/06 02:46 Order name: Troponin (emerg Dept Use Only); Complete Time: 03:40 pkl 01/06 02:46 Order name: XRAY Chest (1 view) pkl 01/06 02:46 Order name: D-Dimer; Complete Time: 03:10 pkl 01/06 02:46 Order name: Basic Metabolic Panel; Complete Time: 03:40 EDMS 01/06 03:16 Order name: CT Chest For PE Angio pkl 01/06 02:46 Order name: EKG; Complete Time: 02:47 pkl 01/06 02:46 Order name: Cardiac monitoring; Complete Time: 02:47 pkl 01/06 02:46 Order name: EKG - Nurse/Tech; Complete Time: 02:56 pkl 01/06 02:46 Order name: IV Saline Lock; Complete Time: 02:47 pkl 01/06 02:46 Order name: Labs collected and sent; Complete Time: 02:56 pkl 01/06 02:46 Order name: O2 Per Protocol; Complete Time: 02:47 pkl 01/06 02:46 Order name: O2 Sat Monitoring; Complete Time: 02:47 pkl Administered Medications: 02:57 Drug: morphine 2 mg Route: IVP; Site: PICC; jd3 02:59 Drug: Zofran (Ondansetron) 4 mg Route: IVP; Site: PICC; jd3 03:26 Drug: NS 0.9% 1000 ml Route: IV; Rate: 125 ml/hr; Site: PICC; jd3 04:21 Drug: Potassium Chloride 20 mEq Route: IV; Rate: calculated rate; Site: PICC; jd3 04:21 Drug: K-Dur 20 mEq Route: PO; jd3 04:22 Drug: Magnesium Sulfate 1 grams Route: IVPB; Infused Over: 1 hrs; Site: PICC; jd3 06:42 Drug: morphine 2 mg Route: IVP; Site: PICC; jd3 08:45 Drug: Dilaudid 2 mg Route: IVP; Site: PICC; rb1 09:00 Follow up: Response: No adverse reaction; Pain is decreased rb1 11:29 CANCELLED (nurse discretion): Dilaudid 2 mg IVP once; RASS on ADMIN: Combtv4, Very rb1 Agttd3, Agttd2, Rstlss1, AlertClm0, Drwsy-1, Lt Sdtn-2, Mod Sdtn-3, Dp Sdtn-4, UnArsble-5 Disposition: 01/07/20 05:45 Hospitalization ordered by Adebayo Prasad for Observation. Preliminary diagnosis is Acute dyspnea. Right renal calculus. S/P stent placement. - Bed requested for Telemetry/MedSurg (observation). - Status is Observation. rb1 - Condition is Stable. - Problem is new. - Symptoms are unchanged. Signatures: Dispatcher [employer] EDEdy Olmedo MD MD pkl Garcia, Cindy RN RN cg Clara Tomlin, RN RN rb1 Brian Plaza RN RN Jo Ann Horn Raymond RN RN rr5 Corrections: (The following items were deleted from the chart) 06:23 05:45 Hospitalization Ordered by Adebayo Prasad for Observation. Preliminary diagnosis cg is Acute dyspnea. Right renal calculus. S/P stent placement. Bed requested for Telemetry/MedSurg (observation). Status is Observation. Condition is Stable. Problem is new. Symptoms are unchanged. pk 06:34 06:23 01/07/2020 05:45 Hospitalization Ordered by Adebayo Prasad for Observation. cg Preliminary diagnosis is Acute dyspnea. Right renal calculus. S/P stent placement. Bed requested for [facility] ER HOLD. Status is Observation. Condition is Stable. Problem is new. Symptoms are unchanged. 06:44 06:34 01/07/2020 05:45 Hospitalization Ordered by Adebayo Prasad for Observation. cg Preliminary diagnosis is Acute dyspnea. Right renal calculus. S/P stent placement. Bed requested for Telemetry/MedSurg (observation). Status is Observation. Condition is Stable. Problem is new. Symptoms are unchanged. 08:48 Dilaudid 2 mg IVP once; RASS on ADMIN: Combtv4, Very Agttd3, Agttd2, Rstlss1, rb1 AlertClm0, Drwsy-1, Lt Sdtn-2, Mod Sdtn-3, Dp Sdtn-4, UnArsble-5 ordered. [facility] 08:48 Dilaudid 2 mg IVP once; RASS on ADMIN: Combtv4, Very Agttd3, Agttd2, Rstlss1, rb1 AlertClm0, Drwsy-1, Lt Sdtn-2, Mod Sdtn-3, Dp Sdtn-4, UnArsble-5 given. rb1 11:28 Dilaudid 2 mg IVP once; RASS on ADMIN: Combtv4, Very Agttd3, Agttd2, Rstlss1, rb1 AlertClm0, Drwsy-1, Lt Sdtn-2, Mod Sdtn-3, Dp Sdtn-4, UnArsble-5 ordered. rb1 13:03 06:44 01/07/2020 05:45 Hospitalization Ordered by Adebayo Prasad for Observation. eb Preliminary diagnosis is Acute dyspnea. Right renal calculus. S/P stent placement. Bed requested for [facility] ER HOLD. Status is Observation. Condition is Stable. Problem is new. Symptoms are unchanged. cg 13:31 13:03 01/07/2020 05:45 Hospitalization Ordered by Adebayo Prasad for Observation. rb1 Preliminary diagnosis is Acute dyspnea. Right renal calculus. S/P stent placement. Bed requested for Telemetry/MedSurg (observation). Status is Observation. Condition is Stable. Problem is new. Symptoms are unchanged. eb
--- NOTE | 2020-01-07 06:07 | P.HP ---
Patient History Date of Service: 01/07/20 Reason for admission: Shortness of breath History of Present Illness: 74-year-old gentleman with a history of kidney stone, history of esophagitis, coronary artery disease presented emergency department with a complaint of shortness of breath and hypoxia at home. Patient reports oxygen saturation of 87% at home. He was here in the ED on 01/02/2020, diagnosed with hydronephrosis and ureteral obstruction. He was transferred to [facility] where urethral stent and nephrestomy were placed. Patient was discharged from hospitalization yesterday. His D-dimer noted to be elevated in the ED. CTA thorax done reported no evidence of central pulmonary embolus but could not comment on any peripheral or subsegmental embolism. Patient complaining of shortness of breath despite his oxygen saturation between 95-96% on room air with normal breathing. CTA thorax also reported a pulmonary nodule that needs to be investigated. He is scheduled for IV antibiotic therapy post urethral stent placement. Patient is placed under observation for further management. Allergies adhesive tape Adverse Reaction (Mild, Verified 04/05/19 02:11) blisters Home Medications: Amlodipine Besylate [Norvasc] 10 mg PO DAILY 12/25/11 Atorvastatin Calcium [Lipitor] 20 mg PO BEDTIME 06/24/18 Gabapentin [Neurontin] 300 mg PO DAILY 06/24/18 fentaNYL [Duragesic] 1 each TD Q72H 01/10/19 allopurinoL [Zyloprim*] 300 mg PO DAILY 04/05/19 Megestrol [Megace] 20 mg PO EVERY 3RD DAY 01/07/20 Metoprolol Succinate 25 mg PO DAILY 01/07/20 Sucralfate [Carafate -Tab] 2 gm PO BID 01/07/20 - Past Medical/Surgical History Diabetic: No -: chronic back and neck pain -: hypertension -: prostate cancer -: bad esophagus -: GERD -: CAD -: kidney stones -: neck surgery -: back surgery x2 -: appendectomy -: hernia repair -: cholecystectomy -: prostatectomy -: bladder dilation -: DVR stimulator - Family History Mother -: Heart disease Father -: Cancer - Social History Alcohol use: No CD- Drugs: Yes Caffeine use: No Review of Systems Other: Except as documented, all other systems reviewed and negative. Physical Examination - Physical Exam General: Alert, In no apparent distress, Oriented x3 HEENT: Normocephalic, Mucous membr. moist/pink, Sclerae nonicteric Neck: Supple, JVD not distended Respiratory: Clear to auscultation bilaterally, Normal air movement Cardiovascular: No edema, Normal S1 S2, Other (Tachycardia) Capillary refill: <2 Seconds Gastrointestinal: Normal bowel sounds, Soft and benign, No tenderness Musculoskeletal: No swelling, No erythema Integumentary: No rashes Neurological: Normal speech, Normal strength at 5/5 x4 extr - Studies Laboratory Data (last 24 hrs) 01/07/20 02:50: PT 13.1 H, INR 1.11 01/07/20 02:50: WBC 6.3 D, Hgb 12.6 L, Hct 37.7 L, Plt Count 208 D 01/07/20 02:50: Sodium 142, Potassium 3.0 L, BUN 8, Creatinine 0.72, Glucose 126 H, Magnesium 1.6 L D, Total Bilirubin 0.6, AST 25, ALT 34, Alkaline Phosphatase 65 Assessment and Plan - Problems (Diagnosis) (1) Shortness of breath Current Visit: Yes Status: Acute (2) Elevated d-dimer Current Visit: Yes Status: Acute (3) History of ureter stent Current Visit: Yes Status: Acute (4) GERD (gastroesophageal reflux disease) Current Visit: Yes Status: Acute (5) Pulmonary nodule Current Visit: Yes Status: Acute - Plan The cause of subjective dyspnea is unknown. Place under observation. Telemetry Trend troponin Will obtain venous Doppler of lower extremities. Start full-dose low lovenox. V/Q scan to to confirm or exclude pulmonary embolism. IV Invanz Supplemental oxygen as needed Bronchodilators. PET scan as an outpatient to further evaluate the pulmonary nodule. Patient has been informed of the pulmonary nodule. - Advance Directives Does patient have a Living Will: Yes Does patient have a Durable POA for Healthcare: No - Code Status/Comfort Care Code Status Assessed: Yes Code Status: Full Code
[2020-01-07] MEDS ORDERED: HYDROMORPHONE HCL 2 MG/ML inj ONE (08:45)
[2020-01-07 09:14] VITALS: BMI 25.8
--- NOTE | 2020-01-07 10:18 | RAD REPORT ---
EXAM DESCRIPTION: Leah Single View01/07/2020 3:04 am CLINICAL HISTORY: Shortness of breath COMPARISON: October 2019 FINDINGS: A small right basilar nodule. Refer to the CT chest report of same date for recommendation Left lung appears clear Heart is normal size. PICC line in place
--- NOTE | 2020-01-07 12:44 | RAD REPORT ---
EXAM DESCRIPTION: CT - Chest For Pe Angio - 01/07/2020 5:34 am CLINICAL HISTORY: DYSPNEA COMPARISON: None. TECHNIQUE: CT CHEST ANGIOGRAPHY WITH IV CONTRAST on 01/07/2020 3:16 AM CDT. MIPS reconstructions were generated. This exam was performed according to our departmental dose-optimization program, which includes autom ated exposure control, adjustment of the mA and/or kV according to patient size and/or use of iterati ve reconstruction technique. MIP images were generated. FINDINGS: Thoracic aorta is normal in course and caliber without aneurysm or dissection. Opacificati on of the pulmonary arteries is suboptimal due to respiratory motion. There are no large or central f illing defects. The heart is normal in size. There is no pericardial effusion. Intrathoracic lymph nodes are not enla rged. There is no pleural effusion, pleural thickening or pneumothorax. Central airways are patent. There a re two irregular nodules in the right middle lobe with the larger measuring 2.9 cm. There are no acute abnormalities within the limited images of the upper abdomen. There are no acute osseous findings. No suspicious bony lesions. IMPRESSION: Two indeterminate right middle lobe pulmonary nodules. Consider PET/CT unless there is clinical suspicion for pneumonia. No aortic dissection or aneurysm. No definite large or central pulmonary embolus. Segmental and subse gmental pulmonary emboli cannot be evaluated due to respiratory motion. Electronically signed by: Kenn Restrepo MD 01/07/2020 4:25 AM CDT Due to temporary technical issues with the PACS/Fluency reporting system, reports are being signed by the in house radiologist as a courtesy to ensure prompt reporting. The interpreting radiologist is f ully responsible for the content of the report.
[2020-01-07] MEDS ORDERED: HYDROMORPHONE HCL 2 MG/ML inj IV PRN (13:08)
[2020-01-07] MEDS ORDERED: HYDROCODONE/APAP 10/325 TAB PO PRN (13:13)
[2020-01-07] MEDS ORDERED: ERTAPENEM SODIUM 1 GM VIAL IVPB SCH (13:49)
[2020-01-07] MEDS ORDERED: ONDANSETRON 4 MG/2 ML VIAL IV PRN (13:49)
[2020-01-07] MEDS: IPRATROPIUM BROM 0.5MG/2.5ML NEB SCH ×2 (13:49→14:00)
[2020-01-07] MEDS ORDERED: ALBUTEROL 2.5 MG/3 ML NEB SOL NEB PRN (13:49)
[2020-01-07] MEDS ORDERED: ALPRAZOLAM 0.25 MG TABLET PO PRN (13:49)
[2020-01-07] MEDS ORDERED: ACETAMINOPHEN 500 MG TAB PO PRN (13:49)
[2020-01-07] MEDS ORDERED: IPRATROPIUM BROM 0.5MG/2.5ML NEB PRN (14:35)
[2020-01-07] MEDS: ENOXAPARIN 80 MG/0.8 ML SQ SCH ×2 (14:50→22:09)
[2020-01-07] MEDS: ERTAPENEM NA 1 GM in NA CHLORIDE 0.9% 100 ML IVPB SCH (14:50)
[2020-01-07 14:55] LABS: NT PRO-BNP 198 pg/mL (<450); Troponin I < 0.02 ng/mL (0.0-0.045)
[2020-01-07 15:39] LABS: Phosphorus 2.4 mg/dL (2.5-4.9); Potassium 3.4 mmol/L (3.5-5.1)
--- NOTE | 2020-01-07 16:31 | RAD REPORT ---
EXAM DESCRIPTION: USExtrem Venous W Compress Bil01/07/2020 4:10 pm CLINICAL HISTORY: Bilateral leg swelling COMPARISON: 2010 FINDINGS: The common femoral, superficial femoral, popliteal and posterior tibial veins bilaterally are compressible and demonstrate augmentation. Doppler demonstrates good flow. IMPRESSION: No evidence of deep venous thrombosis involving either lower extremity.
[2020-01-07] MEDS ORDERED: POTASSIUM 25 MEQ EFFERV TAB PO ONE (17:38)
[2020-01-07] MEDS: POTASS/SODIUM PHOSPHATE 1 PKT POWD.PACK PO SCH ×3 (18:15→20:00)
[2020-01-07] MEDS: HYDROMORPHONE HCL 2 MG/ML inj IV PRN ×2 (18:21→22:09)
[2020-01-08] MEDS: HYDROMORPHONE HCL 2 MG/ML inj IV PRN ×6 (02:36→23:24)
[2020-01-08 05:22] LABS: Absolute Lymphocytes (CBC) 2.1 K/uL (0.7-4.9); Basophils % 0.8 % (0-1.3); Hematocrit 36.2 % (39.6-49.0); Lymphocytes % 32.5 % (15.3-44.8); MPV 8.1 fL (7.6-11.3); RBC Red Blood Cell Count 4.06 M/uL (4.33-5.43)
[2020-01-08 05:23] LABS: Protime INR 1.19
[2020-01-08 05:36] LABS: ALT/SGPT 39 U/L (12-78); AST/SGOT 29 U/L (15-37); Albumin 2.7 g/dL (3.4-5.0); Alkaline Phosphatase 60 U/L (45-117); BUN Blood Urea Nitrogen 10 mg/dL (7-18); Bicarbonate 27 mmol/L (21-32); Bilirubin Total 0.6 mg/dL (0.2-1.0); Glucose Level 94 mg/dL (74-106); Phosphorus 2.8 mg/dL (2.5-4.9); Potassium 3.7 mmol/L (3.5-5.1); Protein, Total 6.6 g/dL (6.4-8.2); Sodium Level 144 mmol/L (136-145)
[2020-01-08] MEDS: ENOXAPARIN 80 MG/0.8 ML SQ SCH ×2 (08:58→20:31)
--- NOTE | 2020-01-08 10:53 | P.PN ---
Subjective Date of Service: 01/08/20 (Hospitalist) Chief Complaint: Shortness of breath Subjective: Improving (Doign better .c/o SOBOE/. Pain on the R side of his abdomen. Fuentes to have surgery on ) Review of Systems General: Weakness Respiratory: Shortness of Breath Gastrointestinal: Abdominal Pain Physical Examination - Vital Signs Temperature: 98.7 F Blood Pressure: 152/76 Pulse: 96 Respirations: 18 Pulse Ox (%): 98 - Physical Exam General: Alert, Oriented x3 HEENT: Atraumatic Neck: Supple Cardiovascular: No edema, Normal S1 S2 Gastrointestinal: Tenderness (Patient has some tenderness on the right side) - Studies Laboratory Data (last 24 hrs) 01/07/20 14:26: Potassium 3.4 L, Phosphorus 2.4 L, Troponin I < 0.02 Assessment & Plan - Problems (Diagnosis) (1) Shortness of breath Current Visit: Yes Status: Acute Plan: Patient is 74 years of age admitted with some shortness of breath he was found to be hypoxic recently discharged from [facility] as a nephrostomy tube on the right side he is in chronic pain medication and was scheduled to have surgery apparently at [facility] virus test was sent Jorge report is pending he is currently on droplet isolation although there is no symptoms of any infectious process patient's oxygenation is satisfactory he was a former smoker he may have underlying chronic obstructive pulmonary disease patient has been schedule for a V/Q scan once is [place] virus test is negative lower extremity Dopplers are also negative D-dimer was elevated I suspect is from his recent surgery not possible to exclude thromboembolism due to motion artifact on the CT angio this nodule may be inflammatory need a follow-up CT scan in about a month and possibly a PET scan I have started him on some bronchodilators (2) Pulmonary nodule Current Visit: Yes Status: Acute Plan: Patient has pulmonary nodule on the right side apparently is chronic there is no mention of of further follow-up or workup according to the patient he was in [facility] patient had a CT scan done here of the chest did not show this right mid lobe nodule in niece to be followed upon the CT angio this nodule may be inflammatory need a follow-up CT scan in about a month and possibly a PET scan patient is a former smoker
[2020-01-08 11:20] LABS: Arterial Blood Carboxyhemoglob 1.2 % (0-1.5); Blood Gas Oxyhemoglobin 90.9 % (94-97); Blood O2 Saturation 92.9 % (92-98.5)
[2020-01-08] MEDS: DULERA 200/5 (MOMETASONE/FORMOTEROL) INHALER IH SCH ×2 (12:18→20:32)
--- NOTE | 2020-01-08 13:11 | EKG ---
Test Date: 2020-01-07 Test Time: 02:52:17 Insulating Machine Operator: EJ MEASUREMENT RESULTS: Intervals: Rate: 104 VA: 144 QRSD: 74 QT: 370 QTc: 486 Cadott: P: 49 VA: 144 QRS: 29 T: 49 INTERPRETIVE STATEMENTS: Sinus tachycardia Otherwise normal ECG Compared to ECG 04/05/2019 07:30:54 Sinus rhythm no longer present Electronically Signed On 01-08-20 13:10:41 CDT by Iker Hernadez
[2020-01-08] MEDS: ERTAPENEM NA 1 GM in NA CHLORIDE 0.9% 100 ML IVPB SCH (14:23)
[2020-01-08] MEDS ORDERED: ATORVASTATIN 20 MG TAB PO SCH (21:00)
[2020-01-08] MEDS: METOPROLOL XL 25 MG TAB PO SCH (21:01)
[2020-01-08] MEDS: AMLODIPINE 5 MG TAB PO SCH (21:01)
[2020-01-08] MEDS: SUCRALFATE 1 GM TABLET PO SCH (21:02)
[2020-01-08] MEDS: GABAPENTIN 300 MG CAP PO SCH (21:02)
[2020-01-09] MEDS: HYDROMORPHONE HCL 2 MG/ML inj IV PRN ×3 (04:54→15:26)
[2020-01-09] MEDS ORDERED: POTASSIUM 25 MEQ EFFERV TAB PO ONE (07:35)
[2020-01-09] MEDS ORDERED: allopurinoL 300 MG TAB PO SCH (09:00)
[2020-01-09] MEDS: DULERA 200/5 (MOMETASONE/FORMOTEROL) INHALER IH SCH (09:00)
[2020-01-09] MEDS: GABAPENTIN 300 MG CAP PO SCH (09:52)
[2020-01-09] MEDS: AMLODIPINE 5 MG TAB PO SCH (09:52)
[2020-01-09] MEDS: SUCRALFATE 1 GM TABLET PO SCH (09:52)
[2020-01-09] MEDS: METOPROLOL XL 25 MG TAB PO SCH (09:53)
[2020-01-09] MEDS: ENOXAPARIN 80 MG/0.8 ML SQ SCH (09:53)
[2020-01-09 11:09] VITALS: O2SAT 98
--- NOTE | 2020-01-09 12:07 | RAD REPORT ---
EXAM DESCRIPTION: Leah Single View01/09/2020 11:59 am CLINICAL HISTORY: Shortness of breath COMPARISON: January 2020 FINDINGS: Right lung nodule unchanged Left lung appears clear of acute infiltrate The heart is normal size. PICC line remains in place
--- NOTE | 2020-01-09 12:29 | P.PN ---
Subjective Date of Service: 01/09/20 Chief Complaint: Hypoxemia No changes still continues to remain hypoxic V/Q scan is pending groin virus test is negative discussed with a urologist the schedule to have urological procedure done and was on IV antibiotics for at resistant infection Physical Examination - Vital Signs Temperature: 97.6 F Blood Pressure: 154/75 Pulse: 87 Respirations: 18 Pulse Ox (%): 96 Assessment & Plan - Problems (Diagnosis) (1) Shortness of breath Current Visit: Yes Status: Acute Plan: Patient is still short of breath hypoxic I discuss with his urologist apparently he was hypoxic at [facility] I doubt this is pulmonary embolism Dopplers of lower extremities are also negative I have ordered a pulmonary function testing probably has underlying obstructive airways disease echocardi ogram ordered Dc Lovenox for now (2) Pulmonary nodule Current Visit: Yes Status: Acute Plan: Patient has a pulmonary nodule in the right middle lobe with I will need to be worked up after his procedure on Discharge Plan: Home Plan to discharge in: 24 Hours
[2020-01-09] MEDS: ERTAPENEM NA 1 GM in NA CHLORIDE 0.9% 100 ML IVPB SCH (15:26)
[2020-01-09 16:28] VITALS: BP 154/75; TEMP 97.6
--- NOTE | 2020-01-09 16:28 | P.DS ---
Admission Date: 01/07/20 Discharge Date: 01/09/20 Disposition: ROUTINE DISCHARGE Discharge Condition: FAIR Reason for Admission: Hypoxemia - Problems (1) Shortness of breath Current Visit: Yes Status: Acute (2) Pulmonary nodule Current Visit: Yes Status: Acute Brief History of Present Illness: Patient is 74 years of age admitted with shortness of breath Hospital Course: He has been hypoxic although he does not qualify for home O2 sats around 90-92% his PO2 was 61 on room air there is no evidence of thromboembolism discussed with Dr. Bhakta no evidence of DVT discuss with Dr. Brand who is a urologist that he was also hypoxic a [facility] and was on nasal cannula oxygen he has a prior history of smoking I suspect that he has COPD patient's FEV1 was only 50% will fax a copy to a urologist he is to be discharged I have also prescribed him a some Dulera to try out patient is to her receive IV antibiotics once a day neck RO RS test to be done prior to discharge again discussed with his urologist Dr. Brand [place] inform the patient that he has a pulmonary nodule with poly need a follow- up CT in a month Vital Signs/Physical Exam: Temp Pulse Resp BP Pulse Ox 97.8 F 84 16 139/68 93 01/09/20 15:57 01/09/20 15:57 01/09/20 15:57 01/09/20 15:57 01/09/20 15:57 Laboratory Data at Discharge: WBC 6.6 K/uL (4.3-10.9) 01/08/20 04:40 Hgb 12.3 g/dL (13.6-17.9) L 01/08/20 04:40 Hct 36.2 % (39.6-49.0) L 01/08/20 04:40 Plt Count 223 K/uL (152-406) 01/08/20 04:40 PT 14.0 SECONDS (9.5-12.5) H 01/08/20 04:40 INR 1.19 01/08/20 04:40 Sodium 144 mmol/L (136-145) 01/08/20 04:40 Potassium 3.7 mmol/L (3.5-5.1) 01/08/20 04:40 BUN 10 mg/dL (7-18) 01/08/20 04:40 Creatinine 0.69 mg/dL (0.55-1.3) 01/08/20 04:40 Glucose 94 mg/dL (74-106) 01/08/20 04:40 Phosphorus 2.8 mg/dL (2.5-4.9) 01/08/20 04:40 Magnesium 2.0 mg/dL (1.8-2.4) 01/08/20 04:40 Total Bilirubin 0.6 mg/dL (0.2-1.0) 01/08/20 04:40 AST 29 U/L (15-37) 01/08/20 04:40 ALT 39 U/L (12-78) 01/08/20 04:40 Alkaline Phosphatase 60 U/L (45-117) 01/08/20 04:40 Troponin I < 0.02 ng/mL (0.0-0.045) 01/08/20 04:40 Home Medications: Amlodipine Besylate [Norvasc] 10 mg PO DAILY 12/25/11 Atorvastatin Calcium [Lipitor*] 20 mg PO BEDTIME 06/24/18 Gabapentin [Neurontin] 300 mg PO DAILY 06/24/18 fentaNYL [Duragesic] 1 each TD Q72H 01/10/19 allopurinoL [Zyloprim*] 300 mg PO DAILY 04/05/19 Megestrol [Megace*] 20 mg PO EVERY 3RD DAY 01/07/20 Metoprolol Succinate 25 mg PO DAILY 01/07/20 Sucralfate [Carafate*] 2 gm PO BID 01/07/20 Mometasone/Formoterol [Dulera 200 Mcg/5 Mcg Inhaler] 2 puff IH BID #1 inhaler 01/09/20 New Medications: Mometasone/Formoterol [Dulera 200 Mcg/5 Mcg Inhaler] 2 puff IH BID #1 inhaler Patient Discharge Instructions: Patient to have a coronal virus test prior to discharge resume all his home medication please give in the Dulera inhaler from the hospital to take 2 puffs twice a day follow up with me in 2-4 weeks for COPD Diet: Regular Activity: Ad jennifer
--- NOTE | 2020-01-10 09:19 | ECHO ---
HEIGHT: 5 ft 8 in WEIGHT: 170 lb 0 oz DATE OF STUDY: 01/09/[address]: Charly Mckeon MD 2-DIMENSIONAL: YES M.MODE: YES DOPPLER: YES COLOR FLOW: YES TDS: YES PORTABLE: NO DEFINITY: NO BUBBLE STUDY: NO DIAGNOSIS: HYPOXEMIA CARDIAC HISTORY: CATHERIZATION: YES SURGERY: NO PROSTHETIC VALVE: NO PACEMAKER: NO MEASUREMENTS (cm) DIASTOLIC (NORMALS) SYSTOLIC (NORMALS) IVSd 1.0 (0.6-1.2) LA Diam 3.0 (1.9-4.0) LVEF 52% LVIDd 4.0 (3.5-5.7) LVIDs 2.9 (2.0-3.5) %FS 26% LVPWd 1.2 (0.6-1.2) Ao Diam 2.6 (2.0-3.7) 2 DIMENSIONAL ASSESSMENT: RIGHT ATRIUM: NORMAL LEFT ATRIUM: NORMAL RIGHT VENTRICLE: NORMAL LEFT VENTRICLE: NORMAL TRICUSPID VALVE: NORMAL MITRAL VALVE: NORMAL PULMONIC VALVE: NORMAL AORTIC VALVE: NORMAL PERICARDIAL EFFUSION: NONE AORTIC ROOT: NORMAL LEFT VENTRICULAR WALL MOTION: NORMAL DOPPLER/COLOR FLOW: NORMAL COMMENTS: NORMAL LEFT VENTRICULAR SIZE AND FUNCTION. NO WALL MOTION ABNORMALITY. NO EFFUSION. TECHNICALLY DIFFICULT STUDY. NORMAL RIGHT VENTRICULAR SYSTOLIC PRESSURE. TECHNOLOGIST: Vivian EDMONDS
[2020-01-11] MEDS ORDERED: MEGESTROL 40 MG TAB PO SCH (09:00)
== END 2020-01-09 17:52 | disposition home or self-care (01) | DRG 192 ==
LOC: ER 02:20 → ERHOLD 06:45 → 2ND 13:22 → OBSVTOIN 15:16 → 4TH 01-08 03:30
PROVIDERS: ADMIT Internal Medicine; ATTEND Internal Medicine Sleep Medicine
PROC: 8E0ZXY6 Isolation (ICD-10-PCS; principal; 2020-01-07)
DX: J44.9 Chronic obstructive pulmonary disease, unspecified (principal); I25.10 Atherosclerotic heart disease of native coronary artery without angina pectoris; K21.9 Gastro-esophageal reflux disease without esophagitis; I10 Essential (primary) hypertension; R09.02 Hypoxemia; Z96.0 Presence of urogenital implants; Z91.048 Other nonmedicinal substance allergy status; Z79.899 Other long term (current) drug therapy; Z85.46 Personal history of malignant neoplasm of prostate; Z90.49 Acquired absence of other specified parts of digestive tract; Z90.79 Acquired absence of other genital organ(s); Z20.828 Contact with and (suspected) exposure to other viral communicable diseases; Z87.891 Personal history of nicotine dependence
CPT/HCPCS: 36415; 71045; 71275; 80048; 80053; 80076; 82805; 83735; 83880; 84100; 84132; 84484; 85025; 85379; 85610; 93005; 93306; 93970; 94760; 96374; 96375; 99285; G0378; J1170; J1335; J1650; J2270; J2405; J3475; J7030; J7040; J7606; Q9967

== ENCOUNTER 2020-02-07 01:54 | Emergency (ER) | payer OTHER, BC ==
--- OUTSIDE RECORDS SUMMARY | 2020-02-07 01:57 | XMS REPORT | Clinical Summary ---
:1945 Author Organization [facility] Address [address] [place] [address] Care Team Providers Name Role Phone Unavailable Primary Care Provider Unavailable Allergies No Known Allergies Medications Medication Sig Dispensed Refills Start Date End Date Status metoprolol Take 25 mg by 0 11/22/2019 Disc ontinued succinate mouth daily. (TOPROL-XL) 25 MG 24 hr tablet amLODIPine Take 10 mg by 0 11/22/2019 Disc ontinued (NORVASC) 10 MG mouth daily. tablet allopurinoL Take 300 mg by 0 11/22/2019 Di scontinued (ZYLOPRIM) 300 MG mouth daily. tablet fentaNYL Place 100 0 11/22/2019 Discontin ued (DURAGESIC) 75 patches onto mcg/hr patch the skin every third day. Active Problems Not on file Encounters Date Type Specialty Care Team Description 11/22/2019 Anesthesia Event Gastroenterology Tim Marc MD after 02/06/2019 Social History Tobacco Use Types Packs/Day Years Used Date Former Smoker Smokeless Tobacco: Never Used Sex Assigned at Date Recorded Not on file Job Start Date Occupation Industry Not on file Not on file Not on file Travel History Travel Start Travel End No recent travel history available. Last Filed Vital Signs Not on file Plan of Treatment Not on file Results Not on fileafter 02/06/2019
--- OUTSIDE RECORDS SUMMARY | 2020-02-07 01:57 | XMS REPORT | Continuity of Care Document ---
:1945 Author Organization [employer] Care Team Providers Name Role Phone [employer] Unavailable Un available Problems Problem Status Onset Classification Date Comments Sourc e Date Reported Hyperlipidemia Active Problem 04/22/2019 Misc her (disorder) Neuro Hypertensive Active Problem 04/22/2019 Mische r disorder, systemic N euro arterial (disorder) Myoclonus Active Problem 04/22/2019 [facility]ischer (finding) Neuro Restless legs Active Problem 04/22/2019 Misch er (disorder) Neuro Medications No Data Provided for This Section Allergies, Adverse Reactions, Alerts Substance Category Reaction Severity Reaction Status Date Comments S ource type Reported No Known Assertion Drug Misch er Medication allergy Neuro Allergies Immunizations No Data [...] Location Location Encounter Encounter Reason Attending ADM UT Stat Source Details Type Number For Provider Date Date Visit Outpatient [id number] [place] 06/02 [facility] Matthias MNA Outside [id number] 09/02 09/04 [facility] Neurology Medical /2017 [facility] [place] Records MNA Phone [id number] 10/01 10/03 [facility] [place]2018 [facility] [place] Outpatient [id number] [place]RI[place] 11/30 [facility] [place] Procedures No Data Provided for This Section Assessment and Plan No Data Provided for This Section Plan of Care No Data Provided for This Section Social History Social History Date Source Social History TypeResponse 06/02/2018 [facility] Smoking Status Former smoker; Exposure to Tobacco Smoke Unable to obtain; Cigarette Smoking Last 365 Days Unable to obtain; Reg Smoking Cessation Counseling No entered on: 06/02/18 Family History No Data Provided for This Section Advance Directives No Data Provided for This Section Functional Status No Data Provided for This Section
--- OUTSIDE RECORDS SUMMARY | 2020-02-07 01:59 | XMS REPORT | Continuity of Care Document ---
:1945 Author Organization [facility] t Address [address] [place] [address] Care Team Providers Name Role Phone AMADO WHITTEN Attending Clinician Unavailable Amado Whitten MD Attending Clinician GARY VIERA Attending Clinician Unavailable JUAN MUÑOZ Attending Clinician Unavailable TERRI Attending Clinician Unavailable SASHA HUGGINS Attending Clinician Unavailable AMADO WHITTEN Admitting Clinician Unavailable GARY VIERA Admitting Clinician Unavailable JUAN MUÑOZ Admitting Clinician Unavailable TERRI Admitting Clinician Unavailable Problems Condition Condition Condition Status Onset Resolution Last Treating Co mments Source Name Details Category Date Date Treatment Clinician Date Hyperlipid Problem Active 2019-04-22 [facility] emia 11:57:54 Neuro (disorder) Hyperlipid emia (disorder) Active Problem 04/22/2019 [facility] Hypertensi Problem Active 2019-04-22 M ischer ve 11:57:54 Neuro disorder, systemic Hypertensi arterial ve (disorder) disorder, systemic arterial (disorder) [facility] My[facility]onus Problem Active 2019-04-22 Mi asuncion (finding) 11:57:54 Neuro Myoclonus (finding) Active Problem 04/22/2019 [facility] Restless Problem Active 2019-04-22 Mis wes legs 11:57:54 Neuro (disorder) Restless legs (disorder) Active Problem 04/22/2019 [facility] Allergies, Adverse Reactions, Alerts Allergy Allergy Status Severity Reaction(s) Onset Inactive Treating Comm ents Source Name Type Date Date Clinician No Known No Known Active [facility] l on on [facility] Social History Smoking Status Start Date Stop Date Source Social History 2018-06-02 13:59:37 2018-06-02 13:59:37 [facility] Medications This patient has no known medications. Procedures This patient has no known procedures. Encounters Start End Encounter Admission Attending Care Care Encounter Source Date/Time Date/Time Type Type Clinicians Facility Department ID 2020-01-19 2020-01-19 Office Aureliano Whitten [id number] 13:41:30 14:41:30 Visit Amado AMBULATOR [id number] Y [id number] 2018-11-30 2018-11-30 Outpatient MHIEALT MHIEALT [id number] Memoria 13:00:00 13:00:00 01 zohra Rizzo 2018-10-01 2018-10-03 Phone MHIEALT MNA [id number] [facility] 20:05:00 05:59:59 Message Neurology 01 Neur o [place] 2018-10-01 2018 Outpatient MHMISCHER MHMISCHER [id number] 14:05:00 23:59:59 2018-09-02 2018-09-04 Outside MHIEALT MNA [id number] [facility] 22:32:00 05:59:59 Medical Neurology 00 Neur o Records [place] 2018-09-02 2018-09-03 Outpatient MHMISCHER MHMISCHER [id number] 16:32:00 23:59:59 00 2018-06-02 2018-06-02 Outpatient MHIEALT MHIEALT [id number] Memoria 08:45:00 08:45:00 00 zohra Rizzo Results Test Description Test Time Test Comments Results Result [facility] e Comments TISSUE EXAM 2020-01-30 Surgical Pathology Report 10:13:00 Case: [id number] Authorizing Provider: Aureliano Whitten MD Collected: 01/25/2020 09:44 AM Ordering Location: [facility] Received: 01/25/2020 02:09 PM SERVICES Pathologist: Queenie Olvera MD Specimens: A) - Lung, Right Middle Lobe, #1, TBBX, Process in cytology for collodion bag, reflex genetic markers B) - Lung, Right Middle Lobe, #2, TBBX, Process in cytology for collodion bag, reflex genetic markers A. 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 Mitotic activity cannot be evaluated. No necrosis is seen. Immunostain for TTF1, synaptophysin, chromogranin are positive; while PSA, PAP is negative. Ki-67 proliferative index is approximately 1%. Findings support the above diagnosis.Please correlate with results of concurrently obtained cytology specimens ([id number], 1228-77).[id number] nodule; mediastinal lymphadenopathy A. Lung, Right Middle Lobe Transbronchial biopsy #1B. Lung, Right Middle Lobe Transbronchial biopsy #2Specimen A: The specimen is received in a formalin-filled container and labeled with the patient's information and labeled "Right middle lobe lung transbronchial biopsy #1" and consists of four white 0.3 cm fragments; eight red 0.1 cm fragments and ten red 0.2 cm fragments submitted entirely in A1 using a mesh bag. Specimen B: The specimen is received in a formalin-filled container and labeled with the patient's information and labeled "Right middle lobe lung transbronchial biopsy #2" and consists of tow white 0.3 cm fragments; four white 0.2 cm fragments; one dark red 0.4 cm fragment; one dark red 0.3 cm fragment and one red 0.1 cm fragment, submitted entirely in B1 using a mesh bag.Performed.The interpretation of this case included the use of immunohistochemistry or special stains.Control Slides Examined: In-house known positive controls were evaluated along with the test tissue. These control slides run alongside of the patients sample show appropriate staining. Internal positive and negative controls when available are evaluated Immunohistochemistry technical testing was performed at [facility], Pathology Laboratory where it was developed and its performance characteristics were determined. It has not been cleared or approved by the U.S. Food and Drug Administration. The FDA has determined that such clearance or approval is not necessary. The test is used for clinical purposes. It should not be regarded as investigational or for research. This laboratory is certified under the Clinical Laboratory Improvement Amendments of 1988 (CLIA-88) as qualified to perform high complexity clinical laboratory testing.[facility], Department of Pathology, [address] [place] [address], [facility], [address] [place] [address], [facility], [facility], [address] [place] [address], SURGICALLY OBTAINED CULTURE + GRAM STAIN 2020-01-28 11:20:00 Test Item Value Reference Range Interpretation Comme nts CULTURE (BEAKER) (test code = 1095) No growth GRAM STAIN RESULT (BEAKER) (test code = 1123) No WBCs GRAM STAIN RESULT (BEAKER) (test code = 62076) No organisms seen SURGICALLY OBTAINED CULTURE + GRAM [id number] 11:20:00 Test Item Value Reference Range Interpretation Comments CULTURE (BEAKER) (test code No growth = 1095) GRAM STAIN RESULT (BEAKER) 1+ WBCs (test code = 1123) GRAM STAIN RESULT (BEAKER) No organisms seen (test code = 72158) FINE NEEDLE ASPIRATE BY [id number] 15:24:00Medical Cytology Report Case: [id number] Authorizing Provider: Aureliano Whitten MD Collected: 01/25/2020 10:20 AM Ordering Location: [facility] Received: 01/25/2020 11:25 AM SERVICES Pathologist: Amee Reich MD Specimen: Lymph Node, Subcarinal, Station 7 LYMPH NODE, SUBCAR INAL, STATION 7, FNA BY CLINICIAN (CYTOSPINS AND CELL BLOCK OF ASPIRATE): - FEW SPINDLE CELLS, COMPATIBLE WITH METASTATIC CARCINOID TUMOR (SEE COMMENT) Signing Pathologist Direct Phone Line: [phone] signed by Amee Reich MD on 01/27/2020 at 3:24 PMCytospins and cell block sections show a few clusters of spindle cells in a background of lymphoid tissue. Immunostains performed on cell block sections show the spindle cells are positive for synaptophysin, chromogranin and CAM5.2. CD68 highlights abundant background macrophages The findings are supportive of the above diagnosis. AFB and GMS stains are negative for acid-fast bacilli and fungal elements. Please also see surgical pathology report [id number] and cytopathology reports [id number], and 1220 through 1226.67607, 56250, 86700, 63788 x 3, 91190 x 2Lung nodule; mediastinal lymphadenopathyLYMPH NODE, SUBCARINAL, STATION 7 FNAReceived 37 ml cytorich red fixative sample; prepared cell block(A2) and 2 cytospinsCollected: [id number] 0Received: [id number] interpretation of this case included the use of immunohistochemistry or specialstains.Please see the immunohistochemistry results in the COMMENT section. Control Slides Examined:In-house known positive controls were evaluated along with the test tissue. These control slides run alongside of the patients sample show appropriate staining. Internal positive and negative controlswhen available are evaluated Immunohistochemistry technical testing was performed at [facility], Pathology Laboratory where it was developed and its performance characteristics were determined. It has not been cleared or approved by the U.S. Food and Drug Administration. The FDA has determined that such clearance or approval is not necessary. The test is used for clinical purposes. It should not be regarded as investigational or for research. This laboratory is certified under the Clinical Laboratory Improvement Amendments of 1988 (CLIA-88) as qualified to perform high complexity clinical laboratory testing.[facility], Department of Pathology, [address] [place] [address], [facility], Department [facility], [address] [place] [address], [facility], [facility], [address] [place] [address], UDOU NEEDLE ASPIRATE BY EBUS 2020-01-27 14:11:00Medical Cytology Report Case: [id number] Authorizing Provider: Aureliano Whitten MD Collected: 01/25/2020 10:43 AM Ordering Location: [facility] Received: 01/25/2020 11:24 AM SERVICES Pathologist: mAee Reich MD Specimen: Lymph Node, Interlobar, Right, Station 11R LYMPH NODE, INTERLOBAR, RIGHT, STATION 11R, FNA BY CLINICIAN (CYTOSPINS AND CELL BLOCK OF ASPIRATE): - SATISFACTORY FOR EVALUATION - NEGATIVE FOR METASTATIC MALIGNANT CELLS - EVIDENCE OF LYMPH NODE SAMPLING (POLYMORPHOUS LYMPHOID TISSUE PRESENT) Signing Pathologist Direct Phone Line: [phone] signed by Amee Reich MD on 01/27/2020 at 2:11 PMPlease also see surgical pathology report [id number] and cytopathology reports [id number], and 1220 through 1225.42807, 69536Itmx nodule; mediastinal lymphadenopathyLYMPH NODE, INTERLOBAR, RIGHT, STATION 11R FNAReceived 35 ml cytorich red fixative sample; prepared cell block(A2) and 2 cytospinsCollected: [id number]: [id number] interpretation of this case included the use of immunohistochemistry or special stains.Control Slides Examined: In-house known positive controls were evaluated along with the test tissue. These control slides run alongside of the patients sample show appropriate staining. Internal positive and negative controls when available are evaluated Immunohistochemistry technical testing was performed at [facility], Pathology Laboratory where it was developed and its performance characteristics were determined. It has not been cleared or approved by the U.S. Food and Drug Administration. The FDA has determined that such clearance or approval is not necessary. The test is used for clinical purposes. It should not be regarded as investigational or for research. This laboratory is certified under the ClinicalLaboratory Improvement Amendments of 1988 (CLIA-88) as qualified to perform high complexity clinicallaboratory testing.[facility], Department of Pathology, [address] [place] [address], [facility], Department of [facility], [address] [place] [address], [facility], [facility], [address] [place] [address], ZACL NEEDLE ASPIRATE BY [id number] 14:05:00Medical Cytology Report Case: [id number] Authorizing Provider: Aureliano Whitten MD Collected: 01/25/2020 10:31 AM Ordering Location: [facility] Received: 01/25/2020 11:25 AM SERVICES Pathologist: Amee Reich MD Specimen: Lymph Node, Lower Paratracheal, Right, Station 4R LYMPH NODE, LOWERPARATRACHEAL, RIGHT, STATION 4R, FNA BY CLINICIAN (CYTOSPINS AND CELL BLOCK OF ASPIRATE): - SATISFACTORY FOR EVALUATION - NEGATIVE FOR METASTATIC MALIGNANT CELLS - EVIDENCE OF LYMPH NODE SAMPLING (POLYMORPHOUS LYMPHOID TISSUE PRESENT) Signing Pathologist Direct Phone Line: [phone] signed by Amee Reich MD on 01/27/2020 at 2:05 PMPlease also see surgical pathology [id number] and cytopathology reports [id number], and 1220 through 1226.16675, 69120Vzia nodule; mediastinal lymphadenopathyLYMPH NODE, LOWER PARATRACHEAL, RIGHT, STATION 4R FNAReceived 36 ml cytorich red fixative sample; prepared cell block(A2) and 2 cytospinsCollected: [id number]: [id number] interpretation of this case included the use of immunohistochemistry or special stains.Control Slides Examined: In-house known positive controls were evaluated along with the test tissue. These control slides run alongside of the patients sample show appropriate staining. Internal positive and negative controls when available are evaluated Immunohistochemistry technical testing was performed at [facility], Pathology Laboratory where it was developed and its performance characteristics were determined. It has not been cleared or approved by the U.S. Food and Drug Administration. The FDA has determined that such clearance or approval is not necessary. The test is used for clinical purposes. It should not be regarded as investigational or for research. This laboratory is certified under the Clinical Laboratory Improvement Amendments of 1988 (CLIA-88) as qualified to perform high complexity clinical laboratory testing.[facility], Department of Pathology, [address] [place] [address], [facility], Department of [facility] o[facility], [address] [place] [address], [facility], Department of [facility], [address] [place] [address], EQYA NEEDLE ASPIRATE BY [id number] 13:58:00Medical Cytology Report Case: [id number] Authorizing Provider: Aureliano Whitten MD Collected: 01/25/2020 10:16 AM Ordering Location: [facility] Received: 01/25/2020 11:25 AM SERVICES Pathologist: Amee Reich MD Specimen: Lymph Node, Lower Paratracheal, Left, Station 4L LYMPH NODE, LOWERPARATRACHEAL, LEFT, STATION 4L, FNA BY CLINICIAN (CYTOSPINS AND CELL BLOCK OF ASPIRATE): - SATISFACTORY FOR EVALUATION - NEGATIVE FOR METASTATIC MALIGNANT CELLS - EVIDENCE OF LYMPH NODE SAMPLING ( POLYMORPHOUS LYMPHOID TISSUE PRESENT) Signing Pathologist Direct Phone Line: [phone] signed by Amee Reich MD on 01/27/2020 at 1:58 PMPlease also see surgical pathology report [id number] and cytopathology reports [id number], and 1220 through 1226.16412, 09285Mxgx nodule; mediastinal lymphadenopathyLYMPH NODE, LOWER PARATRACHEAL, LEFT, STATION 4L FNAReceived 35 ml cytorich red fixative sample; prepared cell block(A2) and 2 cytospinsCollected: [id number]: [id number] interpretation of this case included the use of immunohistochemistry or special stains.Control Slides Examined:In-house known positive controls were evaluated along with the test tissue. These control slides run alongside of the patients sample show appropriate staining. Internal positive and negative controlswhen available are evaluated Immunohistochemistry technical testing was performed at [facility], Pathology Laboratory where it was developed and its performance characteristics were determined. It has not been cleared or approved by the U.S. Food and Drug Administration. The FDA has determined that such clearance or approval is not necessary. The test is used for clinical purposes. It should not be regarded as investigational or for research. This laboratory is certified under the Clinical Laboratory Improvement Amendments of 1988 (CLIA-88) as qualified to perform high complexity clinical laboratory testing.[facility], Department of Pathology, [address] [place] [address], [facility], Department of Patholog y, [address] [place] [address], [facility], Department of [facility], [address] [place] [address], HNFY NEEDLE ASPIRATE BY [id number] 13:52:00Medical Cytology Report Case: [id number] Authorizing Provider: Aureliano Whitten MD Collected: 01/25/2020 10:08 AM Ordering Location: [facility] Received: 01/25/2020 11:24 AM SERVICES Pathologist: Amee Reich MD Specimen: Lymph Node, Interlobar, Left, Station 11L LYMPH NODE, INTERLOBAR, LEFT, STATION 11L, FNA BY CLINICIAN (CYTOSPINS AND CELL BLOCK OF ASPIRATE): - SATISFACTORY FOR EVALUATION - NEGATIVE FOR METASTATIC MALIGNANT CELLS - EVIDENCE OF LYMPH NODE SAMPLING (POLYMORPHOUS LYMPHOID TISSUE PRESENT) Signing Pathologist Direct Phone Line: [phone] signed by Amee Reich MD on 01/27/2020 at 1:52 PMPlease also see surgical pathology report [id number] and cytopathology reports [id number], and 1220 through 1226.95836, 13040Asfp nodule; mediastinal lymph adenopathyLYMPH NODE, INTERLOBAR, LEFT, STATION 11L FNAReceived 35 ml cytorich red fixative sample; prepared cell block(A2) and 2 cytospinsCollected: [id number]: [id number] interpretation of this case included the use of immunohistochemistry or special stains.Control Slides Examined: In-house known positive controls were evaluated along with the test tissue. These control slides run alongside ofthe patients sample show appropriate staining. Internal positive and negative controls when available are evaluated Immunohistochemistry technical testing was performed at [facility], Pathology Laboratory where it was developed and its performance characteristics were determined.It has not been cleared or approved by the U.S. Food and Drug Administration. The FDA has determinedthat such clearance or approval is not necessary. The test is used for clinical purposes. It should not be regarded as investigational or for research. This laboratory is certified under the Clinical Laboratory Improvement Amendments of 1988 (CLIA-88) as qualified to perform high complexity clinical laboratory testing.[facility], Department of Pathology, [address] [place] [address], [facility], Department of [facility], [address] [place] [address], [facility], Department of [facility], [address] [place] [address], [id number] 13:42:00Medical Cytology Report Case: [id number] Authorizing Provider: Aureliano Whitten MD Collected: 01/25/2020 10:14 AM Ordering Location: [facility] Received: 01/25/2020 11:24 AM SERVICES Pathologist: Amee Reich MD Specimen: Lung, Right Middle Lobe, BAL LUNG, RIGHT MIDDLE LOBE, BAL (CYTOSPINS): - RARE CLUSTERS OF ATYPICAL SPINDLED CELLS, SUGGESTIVE OF CARCINOID TUMOR (SEE COMMENT) Signing Pathologist Direct Phone Line: [phone] signed by Amee Reich MD on 01/27/2020 at 1:42 PMCytospins and cell block sections show rare spindle cells, morp hologically similar to the lesional cells seen in [id number]. Further analysis is precluded due to thesimilar morphologic features of some bronchial epithelial cells and a lack of cell block section forfurther evaluation. Please also see surgical pathology report [id number] and cytopathology reports [id number], and 1220 through 1226.07250Psry nodule; mediastinal lymphadenopathyLUNG, RIGHT MIDDLE LOBE BALReceived 5 ml bloody fluid; prepared 4 cytospinsCollected: [id number]: [id number] [facility], Department of Pathology, [address] [place] [address], [facility], Department of Path[facility], [address] [place] [address], [facility], Department of [facility], [address] [place] [address], COPGWSER 2020-01-27 13:41:00Medical Cytology Report Case: [id number] Authorizing Provider: Aureliano Whitten MD Collected: 01/25/2020 09:36 AM Ordering Location: [facility] Received: 01/25/2020 11:24 AM SERVICES Pathologist: Amee Reich MD Specimen: Lung, Right Middle Lobe LUNG, RIGHT MIDDLE LOBE, BRONCHIAL BRUSHING (CYTOSPINS AND CELL BLOCK): - FEW CLUSTERS OF ATYPICAL SPINDLED CELLS, COMPATIBLE WITH CARCINOID TUMOR (SEE COMMENT) Signing Pathologist Direct Phone Line: [phone] signed by Amee Reich MD on 01/27/2020 at 1:41 PMCytospins and cell block sections show a few spindle cells, morphologically similar to the lesional cells seen in [id number]. Please also see surgical pathology report [id number] and cytopathology reports [id number], and 1221 through 1226.13132, 12941Ykon nodule; mediastinal lymphadenopathyLUNG, RIGHT MIDDLE LOBE BRONCHIAL BRUSHINGReceived 1 brush tip in 30 ml cytorich red fixative; prepared cell block(A2) of red floating bloody clot and2 cytospinsCollected: [id number]: [id number], Departmentof Pathology, [address] [place] [address], [facility], Department of [facility], [address] [place] [address], [facility], Department of [facility], [address] [place] [address], BISA NEEDLE ASPIRATE BY [id number] 13:41:00Medical Cytology Report Case: [id number] Authorizing Provider: Aureliano Whitten MD Collected: 01/25/2020 09:19 AM Ordering Location: [facility] Received: 01/25/2020 09:26 AM SERVICES Pathologist: Amee Reich MD Specimen: Lung, Right Middle Lobe LUNG, RIGHT MIDDLE LOBE, FNA BY CLINICIAN (DIRECT SMEARS AND CELL BLOCK OF ASPIRATE): - NEUROENDOCRINE PROLIFERATION, COMPATIBLE WITH CARCINOID TUMOR (SEE COMMENT) Signing Pathologist Direct Phone Line: Smears are paucicellular while the cell block sections show monotonous spindle cell proliferation with moderate amount of eosinophiliccytoplasm. Rare multinuclear giant cells are seen. Additionally some possibly entrapped glandular structure are seen (TTF1 negative). No significantly increased mitoses or necrosis are seen in the cellblock sections. Immunostains performed on cell block sections show the lesional cells to be positivefor synaptophysin, chromogranin, CAM5.2 and TTF1. Ki67 labeling index is approximately 1%. In the appropriate clinical setting, these findings are supportive of a diagnosis of carcinoid tumor. Based onthe current sampling, a diagnosis of typical carcinoid is favored. Correlation with final resection specimen is recommended. Please also see surgical pathology report [id number] and cytopathology [id number] through 1226.00210, 88719, 30570, 03849, 8841 x 3, 15550Sfue nodule; mediastinal lymphadenopathyLUNG, RIGHT MIDDLE LOBE FNAPrepared 6 direct smear slides and cell block(A2) from 43 ml cytorichred fixative sampleCollected: [id number]: [id number] ONLY (9:37AM, 01/25/20, NS)The interpretation of this case included the use of immunohistochemistry or special stains.Control Slides Examined: In-house known positive controls were evaluated along with the test tissue. These control slides runalongside of the patients sample show appropriate staining. Internal positive and negative controls when available are evaluated Immunohistochemistry technical testing was performed at [facility], Pathology Laboratory where it was developed and its performance characteristics were determined. It has not been cleared or approved by the U.S. Food and Drug Administration. The FDA has determined that such clearance or approval is not necessary. The test is used for clinical purposes. It should not be regarded as investigational or for research. This laboratory is certified under the Clinical Laboratory Improvement Amendments of 1988 (CLIA-88) as qualified to perform high complexity clinical laboratory testing.[facility], Department of Pathology, [address] [place] [id number], [facility], [facility], [address] [place] [address], [facility], Department of [facility], [address] [place] [address], SRTQ FNA [id number] 13:00:00 Test Item Value Reference Range Interpretation Comments CYTOLOGY RESULT POINTER See Separate Report (BEAKER) (test code = 2629) EBUS FNA [id number] 13:00:00 Test Item Value Reference Range Interpretation Comments CYTOLOGY RESULT POINTER See Separate Report (BEAKER) (test code = 2629) EBUS FNA [id number] 13:00:00 Test Item Value Reference Range Interpretation Comments CYTOLOGY RESULT POINTER See Separate Report (BEAKER) (test code = 2629) EBUS FNA [id number] 13:00:00 Test Item Value Reference Range Interpretation Comments CYTOLOGY RESULT POINTER See Separate Report (BEAKER) (test code = 2629) CYTOLOGY [id number] 13:00:00 Test Item Value Reference Range Interpretation Comments CYTOLOGY RESULT POINTER See Separate Report (BEAKER) (test code = 2629) EBUS FNA [id number] 13:00:00 Test Item Value Reference Range Interpretation Comments CYTOLOGY RESULT POINTER See Separate Report (BEAKER) (test code = 2629) FINE NEEDLE ASPIRATE (FNA) [id number] 13:00:00 Test Item Value Reference Range Interpretation Comments CYTOLOGY RESULT POINTER See Separate Report (BEAKER) (test code = 2629) CYTOLOGY [id number] 13:00:00 Test Item Value Reference Range Interpretation Comments CYTOLOGY RESULT POINTER See Separate Report (BEAKER) (test code = 2629) RAD, CHEST, 1 VIEW, NON [id number] 11:47:00Reason for exam:->s/p RML TBBX, rule out PTXFINAL REPORT INDICATION: s/p RML TBBX, rule out PTX COMPARISON: None TECHNIQUE: Single frontal view of the chest. FINDINGS: Lungs and pleura: Persistent basilar subsegmental atelectasis. No effusion.Heart and mediastinum: Normal heart size. Unremarkable mediastinal contours.Osseous structures: No acute abnormality.Other: PICC tip overlies the SVC. ET tube has been removed IMPRESSION: No pneumothorax. Signed: Camille Oseguera Verified Date/Time: 01/25/2020 11:47:05 Reading Location: [facility] Radiology Reading Room EBUS FNA [id number] 11:00:00 Test Item Value Reference Range Interpretation Comments CYTOLOGY RESULT POINTER See Separate Report (BEAKER) (test code = 2629) FL, FLUORO, NON-SPECIFIC, UP TO 1 [id number] 10:15:00Reason for exam:- >Super DFINAL REPORT A fluoroscopic unit was utilized for a procedure performed in the operating room. No interpretation was requested. Please refer to the operative report regarding findings. Please refer to PACS for patient radiation dose information. Signed: Camille Oseguera Verified Date/Time: 01/25/2020 10:15:14 Reading Location: [facility] Radiology Reading Room COMPREHENSIVE METABOLIC [id number] 07:22:00 Test Item Value Reference Range Interpretation Comments TOTAL PROTEIN 6.9 gm/dL 6.0-8.3 Specimen sligh tly (BEAKER) (test code = hemoly zed 770) ALBUMIN (BEAKER) 3.7 g/dL 3.5-5.0 Specimen sl ightly (test code = 1145) hemolyzed ALKALINE PHOSPHATASE 92 U/L 40-150 (BEAKER) (test code = 346) BILIRUBIN TOTAL 1.1 mg/dL 0.2-1.2 Specimen sli ghtly (BEAKER) (test code = hemoly zed 377) SODIUM (BEAKER) (test 141 meq/L 136-145 code = 381) POTASSIUM (BEAKER) 4.1 meq/L 3.5-5.1 Specimen slightly (test code = 379) hemolyzed CHLORIDE (BEAKER) 113 meq/L 98-107 H (test code = 382) CO2 (BEAKER) (test 19 meq/L 22-29 L code = 355) BLOOD UREA NITROGEN 10 mg/dL 7-21 (BEAKER) (test code = 354) CREATININE (BEAKER) 0.81 mg/dL 0.57-1.25 Specimen slightly (test code = 358) hemolyzed GLUCOSE RANDOM 114 mg/dL 70-105 H (BEAKER) (test code = 652) CALCIUM (BEAKER) 8.8 mg/dL 8.4-10.2 (test code = 697) AST (SGOT) (BEAKER) 30 U/L 5-34 Specimen slightly (test code = 353) hemolyzed ALT (SGPT) (BEAKER) 27 U/L 6-55 Specimen slightly (test code = 347) hemolyzed EGFR (BEAKER) (test 93 mL/min/1.73 ESTIMA PATRIZIA GFR IS code = 1092) sq m NOT ACCURATE CREATININE CLEARANCE IN PREDICTING GLOMERULAR FILTRATION RATE . ESTIMATED GFR I S NOT APPLICABLE FOR DIALYSIS PATIEN TS. Garment Supervisor ID - [id number] TIME/[id number] 07:11:00 Test Item Value Reference Range Interpretation Comments PROTIME (BEAKER) (test code = 13.7 seconds 11.9-14.2 759) INR (BEAKER) (test code = 370) 1.1 <=5.9 Effective 02/02/2019: PT Reference Range ChangeNew: 11.9-14.2 Previous: 11.7- 14.7RECOMMENDED COUMADIN/WARFARIN INR THERAPY RANGESSTANDARD DOSE: 2.0-3.0 Includes: PROPHYLAXIS for venous thrombosis, systemic embolization; TREATMENT for venous thrombosis and/or pulmonary embolus.HIGH RISK: Target INR is2.5-3.5 for patients wiht mechanical heart valves.[id number] 07:11:00 Test Item Value Reference Range Interpretation Comments PARTIAL THROMBOPLASTIN TIME 27.1 seconds 22.5-36.0 (BEAKER) (test code = 760) CBC W/PLT COUNT & AUTO [id number] 07:04:00 Test Item Value Reference Range Interpretation Comments WHITE BLOOD CELL COUNT (BEAKER) 8.9 K/ L 3.5-10.5 (test code = 775) RED BLOOD CELL COUNT (BEAKER) 4.10 M/ L 4.63-6.08 L (test code = 761) HEMOGLOBIN (BEAKER) (test code = 12.4 GM/DL 13.7-17.5 L 410) HEMATOCRIT (BEAKER) (test code = 38.2 % 40.1-51.0 L 411) MEAN CORPUSCULAR VOLUME (BEAKER) 93.2 fL 79.0-92.2 H (test code = 753) MEAN CORPUSCULAR HEMOGLOBIN 30.2 pg 25.7-32.2 (BEAKER) (test code = 751) MEAN CORPUSCULAR HEMOGLOBIN CONC 32.5 GM/DL 32.3-36.5 (BEAKER) (test code = 752) RED CELL DISTRIBUTION WIDTH 13.5 % 11.6-14.4 (BEAKER) (test code = 412) PLATELET COUNT (BEAKER) (test 256 K/CU MM 150-450 code = 756) MEAN PLATELET VOLUME (BEAKER) 9.3 fL 9.4-12.4 L (test code = 754) NUCLEATED RED BLOOD CELLS 0 /100 WBC 0-0 (BEAKER) (test code = 413) NEUTROPHILS RELATIVE PERCENT 66 % (BEAKER) (test code = 429) LYMPHOCYTES RELATIVE PERCENT 24 % (BEAKER) (test code = 430) MONOCYTES RELATIVE PERCENT 8 % (BEAKER) (test code = 431) EOSINOPHILS RELATIVE PERCENT 2 % (BEAKER) (test code = 432) BASOPHILS RELATIVE PERCENT 1 % (BEAKER) (test code = 437) NEUTROPHILS ABSOLUTE COUNT 5.85 K/ L 1.78-5.38 H (BEAKER) (test code = 670) LYMPHOCYTES ABSOLUTE COUNT 2.09 K/ L 1.32-3.57 (BEAKER) (test code = 414) MONOCYTES ABSOLUTE COUNT (BEAKER) 0.68 K/ L 0.30-0.82 (test code = 415) EOSINOPHILS ABSOLUTE COUNT 0.15 K/ L 0.04-0.54 (BEAKER) (test code = 416) BASOPHILS ABSOLUTE COUNT (BEAKER) 0.06 K/ L 0.01-0.08 (test code = 417) IMMATURE GRANULOCYTES-RELATIVE 1 % 0-1 PERCENT (BEAKER) (test code = 2801) CT, CHEST, WITHOUT IV [id number] 16:04:00FINAL REPORT CT of the chest, without contrast Clinical History: Lung nodule ,Mediastinal lymphadenopathy Technique: CT of the chest is performed without intravenous contrast administration. This exam was performed according to our departmental dose optimization program which includes automated exposure control, adjustment of the mA and/or kV according to patient's size and/oruse of iterative reconstructive technique. Comparison Film: January 13, 2020 Discussion: There are mildly enlarged mediastinal and hilar lymph nodes, without interval change. A right-sided PICC line is present. Visualized thyroid gland is normal. No supraclavicular, or axillary lymphadenopathy. Heart and pericardium are unremarkable. Opacities in the medial right middle lobe are without significant interval change. There are multiple tiny centrilobular micronodules, primarily in the upper lungs.. A 4 mmnodule is seen in the right upper lobe, as well as the right lower lobe. There is mild degree of pulmonary emphysema. In both lower lobes, there is mild scarring. No new mass. No pleural effusion. Central airways are patent. Trace secretions are noted in the trachea. Status post cholecystectomy. Partially imaged upper abdomen is otherwise unremarkable. Osseous structures demonstrate mild degenerativechanges. A stimulator device is present in thoracic spine. Impression: No significant interval change in multifocal opacities in the medial middle lobe. Mild emphysema. Small nonspecific pulmonary nodules. Mildly enlarged mediastinal and hilar lymph nodes, also unchanged. Signed: Callie Benavideseport Verified Date/Time: 01/20/2020 16:04:10 Reading Location: [address] Consult Reading Room CT, CHEST, WITH [id number] 12:17:00FINAL REPORT CT Chest with contrast History:Right middle lobe nodule seen on abdomen pelvis CT Comparison: CT abdomen and pelvis 01/13/2020 and 01/12/2019 Technique: serial axial imaging was performed following up to 100cc of non ionic iodinated intravenous contrast as per departmental protocol. Multiplanar images are reconstructed and reviewed when indicated. This CT examination is performed using one or more of the following dose reduction techniques: Automated exposure control, adjustment of the mA and /or kV according to patient size, and/or use of iterative reconstructiontechnique. Findings:Mildly enlarged middle mediastinal and right hilar lymph nodes, measuring up to14 mm in size. Normal size heart. No pericardial effusion. No thoracic aortic aneurysm or dissection. No central pulmonary arterial filling defect. Patent central airways. No pleural effusion or pneumothorax. A 2 mm left upper lobe nodule is noted on axial image 17. A 2.4 x 1.7 cm spiculatednodule within the central right middle lobe has increased in size when compared back to 01/12/2019. Additional scattered subcentimeter nodules throughout the right lung are annotated on the examination and measure up to 5 mm in size. Underlying centrilobular pulmonary emphysema is noted. Scattered tiny cysts within the partially imaged liver. The patient is status post cholecystectomy. No aggressive osseous lesion. Impression: 1. 2.4 x 1.7 cm spiculated right middle lobe nodule, increased in size from 01/12/2019. Finding is concerning for primary malignancy, until proven otherwise.2. Additional scattered bilateral subcentimeter pulmonary nodules, measuring up to 5 mm in size. These nodules are toosmall to fully characterize or biopsy. A six month follow-up study would be appropriate for evaluation of these nodules. Signed: Kevin Clementeort Verified Date/Time: 01/13/2020 12:17:46 Reading Location: [place] [id number] Ortho Consult Reading Room Electronically signed by: Pricilla ZENG 01/13/2020 12:17 PMCT, [id number] 08:40:00Please specify:->Renal Stone ProtocolFINAL REPORT TECHNIQUE: CT of the abdomen and pelvis WITHOUT intravenous contrast and WITHOUT oral contrast. Dose modulation, iterative reconstruction, and/or weight-based adjustment of the mA/kV was utilized to reduce the radiation dose to as low as reasonably achievable. INDICATION: Flank pain, kidney stone suspected. COMPARISON: CT from 01/02/2020. FINDINGS: ABSENCE OF INTRAVENOUS CONTRAST DECREASES SENSITIVITY FOR DETECTION OF FOCAL LESIONS AND VASCULAR PATHOLOGY. LOWER THORAX: The tree-in-bud opacities the right middle lobe are similar the prior examination. However, theatelectasis has increased. There is some consolidation in the right middle lobe which is also increased compared to 01/12/2019. This now measures 1.5 x 2 cm, previously 0.9 x 0.9 cm. Marked coronary arterial calcification. HEPATOBILIARY: A cyst in segment VIII measures 0.9 cm. A hypodensity in segment II measures 0.3 cm and is too small to further characterize. Prior cholecystectomy. No biliary ductal dilatation.SPLEEN: No splenomegaly.PANCREAS: No focal masses or ductal dilatation. ADRENALS: No adrena l nodules.KIDNEYS/URETERS: Two nonobstructing left renal stones measure up to 0.4 cm. There is mild right hydronephrosis with a right ureteral stent in place. The layering hyperdense material in the right renal pelvis is most likely hemorrhage with a punctate stone is seen on axial image 100. There stephan single residual right lower pole nonobstructing stone which measures 0.2 cm. Moderate right perinephric fat stranding. There is a tract from the subcutaneous tissues to the right kidney. PELVIC ORGANS/BLADDER: Prior prostatectomy. The bladder is decompressed by a Spence catheter. PERITONEUM/RETROPERITONEUM: No free air or fluid.LYMPH NODES: No lymphadenopathy. Prior pelvic lymph node dissection.VESSE LS: Marked aortoiliac calcification. GI TRACT: No distention or wall thickening. Mild diverticulosisof the sigmoid colon. Without infiltration of the gastric pylorus. BONES AND SOFT TISSUES: A left back electronic device has been which appears to terminate before entering the spinal canal. Prior leftsacroiliac fusion. Spinal fusion from L4 to S1. IMPRESSION: 1.Interval right percutaneous nephrolithotomy with marked reduction in the stone burden with a single residual right lower pole nonobstructing stone and a likely punctate renal pelvis stone. In addition, there is likely some layering hemorrhage in the right renal pelvis. 2.A right middle lobe nodular opacity has increased in size from 01/12/2019. This now measures 1.5 x 2 cm, previously 0.9 x 0.9 cm. Since an obstructive malignancy which hasled to tree-in-bud opacity of the right middle lobe is possible, a chest CT with intravenous contrast is recommended. 3.Nonobstructing left renal stones measure up to 0.2 cm. 4.The left back electronicdevice has a lead which appears to terminate before entering the spinal canal. Signed: Brendan Fernandez MDReport Verified Date/Time: 01/13/2020 08:40:38 Reading Location: [facility] Diagnostic Imaging Reading Room - [place] [address] BASIC METABOLIC [id number] 05:22:00 Test Item Value Reference Range Interpretation Comments SODIUM (BEAKER) 138 meq/L 136-145 (test code = 381) POTASSIUM (BEAKER) 4.3 meq/L 3.5-5.1 (test code = 379) CHLORIDE (BEAKER) 110 meq/L 98-107 H (test code = 382) CO2 (BEAKER) (test 20 meq/L 22-29 L code = 355) BLOOD UREA NITROGEN 14 mg/dL 7-21 (BEAKER) (test code = 354) CREATININE (BEAKER) 0.98 mg/dL 0.57-1.25 (test code = 358) GLUCOSE RANDOM 127 mg/dL 70-105 H (BEAKER) (test code = 652) CALCIUM (BEAKER) 7.8 mg/dL 8.4-10.2 L (test code = 697) EGFR (BEAKER) (test 74 mL/min/1.73 ESTIMA PATRIZIA GFR IS code = 1092) sq m NOT ACCURATE CREATININE CLEARANCE IN PREDICTING GLOMERULAR FILTRATION RATE . ESTIMATED GFR I S NOT APPLICABLE FOR DIALYSIS PATIEN TS. Garment Supervisor ID - PIAYA LCBC W/PLT COUNT & AUTO [id number] 04:54:00 Test Item Value Reference Range Interpretation Comments WHITE BLOOD CELL COUNT (BEAKER) 18.3 K/ L 3.5-10.5 H (test code = 775) RED BLOOD CELL COUNT (BEAKER) 4.03 M/ L 4.63-6.08 L (test code = 761) HEMOGLOBIN (BEAKER) (test code = 12.2 GM/DL 13.7-17.5 L 410) HEMATOCRIT (BEAKER) (test code = 37.6 % 40.1-51.0 L 411) MEAN CORPUSCULAR VOLUME (BEAKER) 93.3 fL 79.0-92.2 H (test code = 753) MEAN CORPUSCULAR HEMOGLOBIN 30.3 pg 25.7-32.2 (BEAKER) (test code = 751) MEAN CORPUSCULAR HEMOGLOBIN CONC 32.4 GM/DL 32.3-36.5 (BEAKER) (test code = 752) RED CELL DISTRIBUTION WIDTH 13.7 % 11.6-14.4 (BEAKER) (test code = 412) PLATELET COUNT (BEAKER) (test 315 K/CU MM 150-450 code = 756) MEAN PLATELET VOLUME (BEAKER) 9.6 fL 9.4-12.4 (test code = 754) NUCLEATED RED BLOOD CELLS 0 /100 WBC 0-0 (BEAKER) (test code = 413) NEUTROPHILS RELATIVE PERCENT 84 % (BEAKER) (test code = 429) LYMPHOCYTES RELATIVE PERCENT 10 % (BEAKER) (test code = 430) MONOCYTES RELATIVE PERCENT 5 % (BEAKER) (test code = 431) EOSINOPHILS RELATIVE PERCENT 0 % (BEAKER) (test code = 432) BASOPHILS RELATIVE PERCENT 0 % (BEAKER) (test code = 437) NEUTROPHILS ABSOLUTE COUNT 15.35 K/ L 1.78-5.38 H (BEAKER) (test code = 670) LYMPHOCYTES ABSOLUTE COUNT 1.83 K/ L 1.32-3.57 (BEAKER) (test code = 414) MONOCYTES ABSOLUTE COUNT (BEAKER) 0.93 K/ L 0.30-0.82 H (test code = 415) EOSINOPHILS ABSOLUTE COUNT 0.00 K/ L 0.04-0.54 L (BEAKER) (test code = 416) BASOPHILS ABSOLUTE COUNT (BEAKER) 0.04 K/ L 0.01-0.08 (test code = 417) IMMATURE GRANULOCYTES-RELATIVE 1 % 0-1 PERCENT (BEAKER) (test code = 2801) BASIC METABOLIC [id number] 17:03:00 Test Item Value Reference Range Interpretation Comments SODIUM (BEAKER) 141 meq/L 136-145 (test code = 381) POTASSIUM (BEAKER) 4.6 meq/L 3.5-5.1 Specimen moderately (test code = 379) hemolyzed CHLORIDE (BEAKER) 111 meq/L 98-107 H (test code = 382) CO2 (BEAKER) (test 24 meq/L 22-29 code = 355) BLOOD UREA NITROGEN 13 mg/dL 7-21 (BEAKER) (test code = 354) CREATININE (BEAKER) 0.84 mg/dL 0.57-1.25 Specimen moderately (test code = 358) hemolyzed GLUCOSE RANDOM 99 mg/dL 70-105 (BEAKER) (test code = 652) CALCIUM (BEAKER) 8.3 mg/dL 8.4-10.2 L (test code = 697) EGFR (BEAKER) (test 89 mL/min/1.73 ESTIMA PATRIZIA GFR IS code = 1092) sq m NOT ACCURATE CREATININE CLEARANCE IN PREDICTING GLOMERULAR FILTRATION RATE . ESTIMATED GFR I S NOT APPLICABLE FOR DIALYSIS PATIEN TS. Garment Supervisor ID - [id number], CHEST, 1 VIEW, NON [id number] 16:59:00Reason for exam:- >to rule out pneumothoraxShould this be performed at the bedside?->Yes FINAL REPORT Chest, one view. HISTORY: to rule out pneumothorax COMPARISON: Radiograph from 01/06/2020 IMPRESSION: Interval intubation with the endotracheal tube 4.8 cm above thecarina. The right PICC is unchanged in position. The interstitial opacities of the right lung are similar to the prior examination. The left basilar atelectasis is unchanged. No pleural effusion or pneumothorax. The cardiac silhouette is normal in size. No acute bony abnormality. Signed: Brendan Fernandez Verified Date/Time: 01/12/2020 16:59:55 Reading Location: [address] Ortho Consult Reading Room HEMOGLOBIN AND [id number] 16:48:00 Test Item Value Reference Range Interpretation Comments HEMOGLOBIN (BEAKER) (test code = 12.7 GM/DL 13.7-17.5 L 410) HEMATOCRIT (BEAKER) (test code = 39.2 % 40.1-51.0 L 411) Garment Supervisor ID - [id number], FLUORO, NON-SPECIFIC, UP TO 1 [id number] 16:21:00 Reason for exam:->PCNLFINAL REPORT A fluoroscopic unit was utilized for a procedure performed in the operating room. No interpretation was requested. Please refer to the operative report regarding findings. Please refer to PACS for patient radiation dose information. Signed: Rosa Maria Sloan MDReport Verified Date/Time: 01/12/2020 16:21:19 Reading Location: [address] Radiology Reading Room SARS-COV2/RT-PCR ([facility])2020-01-11 11:20:00 Test Item Value Reference Range Interpretation Comments SARS-COV2/RT-PCR (test code = Negative Not Detected, Negative [id number]) SARS-COV-2 PERFORMING LAB CPL (test code = 5753709) BLOOD [id number] 14:00:00 Test Item Value Reference Range Interpretation Comments CULTURE (BEAKER) (test No growth in 5 days code = 1095) BLOOD [id number] 14:00:00 Test Item Value Reference Range Interpretation Comments CULTURE (BEAKER) (test No growth in 5 days code = 1095) BLOOD [id number] 14:02:00 Test Item Value Reference Range Interpretation Comments CULTURE (BEAKER) A From Aerobi c Bottle (test code = Only Same organ ism has 1095) been isolated f rom cultures(s) of the same body site and collection date . Repeat identifi cation and susceptibil ity testing perform ed only after consultat ion with the [facility] microbiology laboratory.Refe r to previous cultur e ofProteus mirabilisESBL P ositive GRAM STAIN From aerobic RESULT (BEAKER) bottle only: (test code = gram variable 1123) rods BLOOD [id number] 14:01:00 Test Item Value Reference Range Interpretation Comments CULTURE (BEAKER) (test PROTEUS A From Anaerobic code = 1095) MIRABILIS Bottle Only Proteus mirabilisESBL Positive Amikacin (test code = S 1) Ampicillin + Sulbactam R (test code = 6) Aztreonam (test code = R 32) Cefepime (test code = R 51) Cefoxitin (test code = R 68) Ceftazidime (test code R = 27) Ceftriaxone (test code R = 52) Ertapenem (test code = S 38) Gentamicin (test code R = 18) Levofloxacin (test R code = 22) Meropenem (test code = S 34) Nitrofurantoin (test R code = 23) Piperacillin + R Tazobactam (test code = 29) Tetracycline (test R code = 2) Tobramycin (test code I = 25) Trimethoprim + R Sulfamethoxazole (test code = 47) GRAM STAIN RESULT From anaerobic (BEAKER) (test code = bottle only: 1123) gram variable rods SARS-COV2/RT-PCR ([facility])2020-01-08 10:40:00 Test Item Value Reference Range Interpretation Comments SARS-COV2/RT-PCR (test code = Negative Not Detected, Negative [id number]) SARS-COV-2 PERFORMING LAB CPL (test code = 9703371) RAD, CHEST, 1 VIEW, NON [id number] 14:38:00Reason for exam:->PICC LINE PLACEMENTShould this be performed at the bedside?->YesFINAL REPORT TECHNIQUE: Frontal chest radiograph dated 01/06/2020. CLINICAL HIS TORY: PICC line COMPARISON STUDY: Chest radiograph performed 01/03/2020 Impression:Right-sided PICC is seen with the tip projected over the superior vena cava at the level of the afhsan. Nerve stimulator wires are again seen over the thoracic spine. There is an increased airspace opacity in the right mi ddle/lower lobe. Stable bibasilar atelectasis in the left lower lobe.No pleural effusion or pneumothorax. Cardiomediastinal silhouette is normal in size. No pulmonary edema. Bones are osteopenic. Degenerative changes are seen in the spine. Signed: Ida Jenkinseport Verified Date/Time: 01/06/2020 14:38:59 Reading Location: [address] Radiology Reading Room ANG, NEPHROSTOMY, PERC, EXTERNAL [id number] 13:01:00Reason for exam:->needs PCN on the right for urgent decompressionFINAL REPORT Procedure: Percutaneous nephrostomy catheter placement. History: Suspected obstructed infected right kidney. Statistics Manager: Jonas Ibarra M.D. Pinion And Wheel Truer: Noemi hale M.D. Modality: Ultrasound and fluoroscopy. DOSE REDUCTION: The [...] stable. Physician intra-service sedation time was 20 minutes. Anesthesia: Lidocaine local infiltration Medicines: Not applicable [...] personnel used personal protective equipment. The operators used sterile gowns and gloves. The patient was laid prone on the procedure table. The percutaneous nephrostomy site was prepped with chlorhexidine gluconate and draped in the maximal sterile fashion. Using aseptic precautions an ultrasonographic evaluation wasperformed. There was hydronephrosis and hydroureter. Pertinent ultrasound images were stored for documentation in the PACS. An upper pole posterior calyx was selected for access. After local anesthesiaand dermatotomy, under real-time ultrasonographic guidance, a 21-gauge Chiba needle was advanced into the calyx. After confirming the recovery of urine, a guidewire was advanced into the collecting system under fluoroscopic guidance. Contrast injection confirmed satisfactory position of the access system. Over the wire, following sequential dilatation of the tract, an 8.5 Samoan nephrostomy catheter was placed, pigtail locked in the renal pelvis. Contrast injection confirmed satisfactory position ofthe nephrostomy catheter. The catheter was secured to skin with nonabsorbable suture and connected to a gravity drainage bag. An aseptic dressing was applied. A sample of urine was collected and sent to the laboratory. The patient was transferred to the recovery area and discharged from the departmentin stable condition. Complications: None immediate. Findings:As above. Impression:Successful ultrasound and fluoroscopic guided 8.5 Samoan nephrostomy catheter placement in the right kidney via a posterior superior calyx as described above. Further management dictated by the clinical scenario. The nephrostomy catheter(s) should be exchanged at the latest in three months. Thank you for the opportunity to assist in the care of your patient. Signed: Jonas Ibarra MDReport Verified Date/Time: 01/06/2020 13:01:05 Reading Location: [place] [address] Angio Body Reading Room BASI METABOLIC [id number] 06:50:00 Test Item Value Reference Range Interpretation Comments SODIUM (BEAKER) 139 meq/L 136-145 (test code = 381) POTASSIUM (BEAKER) 3.3 meq/L 3.5-5.1 L (test code = 379) CHLORIDE (BEAKER) 105 meq/L 98-107 (test code = 382) CO2 (BEAKER) (test 26 meq/L 22-29 code = 355) BLOOD UREA NITROGEN 8 mg/dL 7-21 (BEAKER) (test code = 354) CREATININE (BEAKER) 0.71 mg/dL 0.57-1.25 (test code = 358) GLUCOSE RANDOM 90 mg/dL 70-105 (BEAKER) (test code = 652) CALCIUM (BEAKER) 8.7 mg/dL 8.4-10.2 (test code = 697) EGFR (BEAKER) (test 108 mL/min/1.73 ESTIM ATED GFR IS code = 1092) sq m NOT ACCURATE CREATININE CLEARANCE IN PREDICTING GLOMERULAR FILTRATION RATE . ESTIMATED GFR I S NOT APPLICABLE FOR DIALYSIS PATIEN TS. Garment Supervisor ID - EMERSONCBC W/PLT COUNT & AUTO [id number] 06:45:00 Test Item Value Reference Range Interpretation Comments WHITE BLOOD CELL COUNT (BEAKER) 5.9 K/ L 3.5-10.5 (test code = 775) RED BLOOD CELL COUNT (BEAKER) 3.97 M/ L 4.63-6.08 L (test code = 761) HEMOGLOBIN (BEAKER) (test code = 12.0 GM/DL 13.7-17.5 L 410) HEMATOCRIT (BEAKER) (test code = 35.7 % 40.1-51.0 L 411) MEAN CORPUSCULAR VOLUME (BEAKER) 89.9 fL 79.0-92.2 (test code = 753) MEAN CORPUSCULAR HEMOGLOBIN 30.2 pg 25.7-32.2 (BEAKER) (test code = 751) MEAN CORPUSCULAR HEMOGLOBIN CONC 33.6 GM/DL 32.3-36.5 (BEAKER) (test code = 752) RED CELL DISTRIBUTION WIDTH 12.9 % 11.6-14.4 (BEAKER) (test code = 412) PLATELET COUNT (BEAKER) (test 173 K/CU MM 150-450 code = 756) MEAN PLATELET VOLUME (BEAKER) 10.3 fL 9.4-12.4 (test code = 754) NUCLEATED RED BLOOD CELLS 0 /100 WBC 0-0 (BEAKER) (test code = 413) NEUTROPHILS RELATIVE PERCENT 58 % (BEAKER) (test code = 429) LYMPHOCYTES RELATIVE PERCENT 23 % (BEAKER) (test code = 430) MONOCYTES RELATIVE PERCENT 17 % (BEAKER) (test code = 431) EOSINOPHILS RELATIVE PERCENT 2 % (BEAKER) (test code = 432) BASOPHILS RELATIVE PERCENT 0 % (BEAKER) (test code = 437) NEUTROPHILS ABSOLUTE COUNT 3.38 K/ L 1.78-5.38 (BEAKER) (test code = 670) LYMPHOCYTES ABSOLUTE COUNT 1.36 K/ L 1.32-3.57 (BEAKER) (test code = 414) MONOCYTES ABSOLUTE COUNT (BEAKER) 0.98 K/ L 0.30-0.82 H (test code = 415) EOSINOPHILS ABSOLUTE COUNT 0.10 K/ L 0.04-0.54 (BEAKER) (test code = 416) BASOPHILS ABSOLUTE COUNT (BEAKER) 0.02 K/ L 0.01-0.08 (test code = 417) IMMATURE GRANULOCYTES-RELATIVE 0 % 0-1 PERCENT (BEAKER) (test code = 2801) BLOOD CULTURE IDENTIFICATION [id number] 09:34:00 Test Item Value Reference Range Interpretation Comments LISTERIA MONOCYTOGENES Not detected Not detected (test code = 9443908) STAPHYLOCOCCUS (test code Not detected Not detected = 1560850) STAPHYLOCOCCUS AUREUS Not detected Not detected (test code = 6380472) STREPTOCOCCUS (test code = Not detected Not detected 6008189) STREPTOCOCCUS AGALACTIAE Not detected Not detected (GROUP B) (test code = 6943673) STREPTOCOCCUS PNEUMONIAE Not detected Not detected (test code = 0356336) STREPTOCOCCUS PYOGENES Not detected Not detected (GROUP A) (test code = 5706075) ACINETOBACTER BAUMANNII Not detected Not detected (test code = 0164769) HAEMOPHILUS INFLUENZAE Not detected Not detected (test code = 5795555) NEISSERIA MENINGITIDIS Not detected Not detected (test code = 8881240) ENTEROBACTERIACEAE (test Ple ase refer to code = 0072307) culture resu lts for ID and susceptibilitie s.. ENTEROBACTER CLOACOE Not detected Not detected COMPLEX (test code = 4057118) KLEBSIELLA OXYTOCA (test Not detected Not detected code = 4892600) KLEBSIELLA PNEUMONIAE Not detected Not detected (test code = 1650) PROTEUS (test code = Please refer to 6380891) culture results for ID and susceptibilitie s.. SERRATIA MARCESCENS (test Not detected Not detected code = 0630999) ELISABETH ALBICANS (test Not detected Not detected code = 0212231) ELISABETH GLABRATA (test Not detected Not detected code = 5217413) ELISABETH KRUSEI (test code Not detected Not detected = 6314541) ELISABETH PARAPSILOSIS (test Not detected Not detected code = 0034270) ELIASBETH TROPICALIS (test Not detected Not detected code = 5714968) ESCHERICHIA COLI (test Not detected Not detected code = 3309795) METHICILLIN-RESISTANCE GENE (test code = 3824082) VANCOMYCIN-RESISTANCE GENE (test code = 4218128) CARBAPENEM-RESISTANCE GENE Not detected Not detected (test code = 1041472) ENTEROCOCCUS-BEAKER (test Not detected Not detected code = 0728150) PSEUDOMONAS Not detected Not detected AERUGINOSA-BEAKER (test code = 2186030) Other bacteria and resistance markers not targeted by this PCR panel cannot be excluded; therefore clinical correlation and follow up of serology, culture results, and other molecular studies is required. The results are not intended to be used as the sole means for clinical diagnosis or patient management decisions. This sample was tested at the [facility] using the [employer] Blood Culture ID Panel. It is FDA cleared and has been verified and approved by the [facility] for clinical use. This laboratory is CLIA-certified and College ofAmerican Pathologists (CAP)-accredited to perform high complexity testing.POCT-GLUCOSE [id number] 07:21:00 Test Item Value Reference Range Interpretation Comments POC-GLUCOSE METER 100 mg/dL 70-110 : TESTED A T [facility] 6720 (BEAKER) (test code = RADHA Tafoya [facility], 1538) [address]: Garment Supervisor/Techni homer ID = [id number] for MAYELA AMARO BASIC METABOLIC [id number] 05:16:00 Test Item Value Reference Range Interpretation Comments SODIUM (BEAKER) 138 meq/L 136-145 (test code = 381) POTASSIUM (BEAKER) 3.7 meq/L 3.5-5.1 Specimen slightly (test code = 379) hemolyzed CHLORIDE (BEAKER) 109 meq/L 98-107 H (test code = 382) CO2 (BEAKER) (test 25 meq/L 22-29 code = 355) BLOOD UREA NITROGEN 12 mg/dL 7-21 (BEAKER) (test code = 354) CREATININE (BEAKER) 0.84 mg/dL 0.57-1.25 Specimen slightly (test code = 358) hemolyzed GLUCOSE RANDOM 103 mg/dL 70-105 (BEAKER) (test code = 652) CALCIUM (BEAKER) 8.3 mg/dL 8.4-10.2 L (test code = 697) EGFR (BEAKER) (test 89 mL/min/1.73 ESTIMA PATRIZIA GFR IS code = 1092) sq m NOT ACCURATE CREATININE CLEARANCE IN PREDICTING GLOMERULAR FILTRATION RATE . ESTIMATED GFR I S NOT APPLICABLE FOR DIALYSIS PATIEN TS. Garment Supervisor ID - LACBC W/PLT COUNT & AUTO [id number] 04:48:00 Test Item Value Reference Range Interpretation Comments WHITE BLOOD CELL COUNT 7.7 K/ L 3.5-10.5 (BEAKER) (test code = 775) RED BLOOD CELL COUNT 3.68 M/ L 4.63-6.08 L (BEAKER) (test code = 761) HEMOGLOBIN (BEAKER) 11.1 GM/DL 13.7-17.5 L (test code = 410) HEMATOCRIT (BEAKER) 33.7 % 40.1-51.0 L (test code = 411) MEAN CORPUSCULAR 91.6 fL 79.0-92.2 Discordant MCV VOLUME (BEAKER) (test result compared to code = 753) previous result ; clinical correl ation required. MEAN CORPUSCULAR 30.2 pg 25.7-32.2 HEMOGLOBIN (BEAKER) (test code = 751) MEAN CORPUSCULAR 32.9 GM/DL 32.3-36.5 HEMOGLOBIN CONC (BEAKER) (test code = 752) RED CELL DISTRIBUTION 13.3 % 11.6-14.4 WIDTH (BEAKER) (test code = 412) PLATELET COUNT 149 K/CU MM 150-450 L (BEAKER) (test code = 756) MEAN PLATELET VOLUME 10.4 fL 9.4-12.4 (BEAKER) (test code = 754) NUCLEATED RED BLOOD 0 /100 WBC 0-0 CELLS (BEAKER) (test code = 413) NEUTROPHILS RELATIVE 69 % PERCENT (BEAKER) (test code = 429) LYMPHOCYTES RELATIVE 17 % PERCENT (BEAKER) (test code = 430) MONOCYTES RELATIVE 12 % PERCENT (BEAKER) (test code = 431) EOSINOPHILS RELATIVE 1 % PERCENT (BEAKER) (test code = 432) BASOPHILS RELATIVE 0 % PERCENT (BEAKER) (test code = 437) NEUTROPHILS ABSOLUTE 5.32 K/ L 1.78-5.38 COUNT (BEAKER) (test code = 670) LYMPHOCYTES ABSOLUTE 1.32 K/ L 1.32-3.57 COUNT (BEAKER) (test code = 414) MONOCYTES ABSOLUTE 0.94 K/ L 0.30-0.82 H COUNT (BEAKER) (test code = 415) EOSINOPHILS ABSOLUTE 0.10 K/ L 0.04-0.54 COUNT (BEAKER) (test code = 416) BASOPHILS ABSOLUTE 0.02 K/ L 0.01-0.08 COUNT (BEAKER) (test code = 417) IMMATURE 0 % 0-1 GRANULOCYTES-RELATIVE PERCENT (BEAKER) (test code = 2801) POCT-GLUCOSE [id number] 21:37:00 Test Item Value Reference Range Interpretation Comments POC-GLUCOSE METER 128 mg/dL 70-110 H : TESTED A T [facility] 6720 (BEAKER) (test code = [facility], 153) [address]: Garment Supervisor/Techni homer ID = [id number] for MAYELA AMARO POCT-GLUCOSE [id number] 17:12:00 Test Item Value Reference Range Interpretation Comments POC-GLUCOSE METER 110 mg/dL 70-110 : TESTED A T [facility] 6720 (BEAKER) (test code [facility], = 153) [address]: Garment Supervisor/Techni homer ID = [id number] for LORA HESS POCT-GLUCOSE [id number] 11:22:00 Test Item Value Reference Range Interpretation Comments POC-GLUCOSE METER 89 mg/dL 70-110 : TESTED A T [facility] 6720 (BEAKER) (test code = [facility], 153) [address]: Garment Supervisor/Techni homer ID = [id number] for GRAN Rola TIEARA POCT-GLUCOSE [id number] 06:18:00 Test Item Value Reference Range Interpretation Comments POC-GLUCOSE METER 106 mg/dL 70-110 : TESTED A T [facility] 6720 (BEAKER) (test code = [facility], 153) [address]: Garment Supervisor/Techni homer ID = [id number] for GEOVANNI THEWGISSELL CBC W/PLT COUNT & AUTO [id number] 06:03:00 Test Item Value Reference Range Interpretation Comments WHITE BLOOD CELL COUNT 11.3 K/ L 3.5-10.5 H (BEAKER) (test code = 775) RED BLOOD CELL COUNT 3.70 M/ L 4.63-6.08 L (BEAKER) (test code = 761) HEMOGLOBIN (BEAKER) 11.4 GM/DL 13.7-17.5 L (test code = 410) HEMATOCRIT (BEAKER) 35.8 % 40.1-51.0 L (test code = 411) MEAN CORPUSCULAR 96.8 fL 79.0-92.2 H Discordant MCV VOLUME (BEAKER) (test result s compared to code = 753) previous result s; clinical correl ation required. MEAN CORPUSCULAR 30.8 pg 25.7-32.2 HEMOGLOBIN (BEAKER) (test code = 751) MEAN CORPUSCULAR 31.8 GM/DL 32.3-36.5 L HEMOGLOBIN CONC (BEAKER) (test code = 752) RED CELL DISTRIBUTION 13.9 % 11.6-14.4 WIDTH (BEAKER) (test code = 412) PLATELET COUNT 130 K/CU MM 150-450 L (BEAKER) (test code = 756) MEAN PLATELET VOLUME 10.3 fL 9.4-12.4 (BEAKER) (test code = 754) NUCLEATED RED BLOOD 0 /100 WBC 0-0 CELLS (BEAKER) (test code = 413) NEUTROPHILS RELATIVE 79 % PERCENT (BEAKER) (test code = 429) LYMPHOCYTES RELATIVE 10 % PERCENT (BEAKER) (test code = 430) MONOCYTES RELATIVE 9 % PERCENT (BEAKER) (test code = 431) EOSINOPHILS RELATIVE 0 % PERCENT (BEAKER) (test code = 432) BASOPHILS RELATIVE 0 % PERCENT (BEAKER) (test code = 437) NEUTROPHILS ABSOLUTE 8.95 K/ L 1.78-5.38 H COUNT (BEAKER) (test code = 670) LYMPHOCYTES ABSOLUTE 1.16 K/ L 1.32-3.57 L COUNT (BEAKER) (test code = 414) MONOCYTES ABSOLUTE 1.07 K/ L 0.30-0.82 H COUNT (BEAKER) (test code = 415) EOSINOPHILS ABSOLUTE 0.05 K/ L 0.04-0.54 COUNT (BEAKER) (test code = 416) BASOPHILS ABSOLUTE 0.04 K/ L 0.01-0.08 COUNT (BEAKER) (test code = 417) IMMATURE 1 % 0-1 GRANULOCYTES-RELATIVE PERCENT (BEAKER) (test code = 2801) BASIC METABOLIC [id number] 05:55:00 Test Item Value Reference Range Interpretation Comments SODIUM (BEAKER) 138 meq/L 136-145 (test code = 381) POTASSIUM (BEAKER) 3.7 meq/L 3.5-5.1 (test code = 379) CHLORIDE (BEAKER) 112 meq/L 98-107 H (test code = 382) CO2 (BEAKER) (test 20 meq/L 22-29 L code = 355) BLOOD UREA NITROGEN 14 mg/dL 7-21 (BEAKER) (test code = 354) CREATININE (BEAKER) 1.00 mg/dL 0.57-1.25 (test code = 358) GLUCOSE RANDOM 99 mg/dL 70-105 (BEAKER) (test code = 652) CALCIUM (BEAKER) 7.9 mg/dL 8.4-10.2 L (test code = 697) EGFR (BEAKER) (test 73 mL/min/1.73 ESTIMA PATRIZIA GFR IS code = 1092) sq m NOT ACCURATE CREATININE CLEARANCE IN PREDICTING GLOMERULAR FILTRATION RATE . ESTIMATED GFR I S NOT APPLICABLE FOR DIALYSIS PATIEN TS. Garment Supervisor ID - DBLACTIC ACID, [id number] 05:41:00 Test Item Value Reference Range Interpretation Comments LACTATE BLOOD VENOUS 0.99 mmol/L 0.50-2.20 Specime n slightly (2) (BEAKER) (test hemolyzed code = 2872) Garment Supervisor ID - DBPOCT-GLUCOSE [id number] 00:16:00 Test Item Value Reference Range Interpretation Comments POC-GLUCOSE METER 104 mg/dL 70-110 : TESTED A T [facility] 6720 (BEAKER) (test code = [address] [place], 1538) [address]: Garment Supervisor/Techni homer ID = [id number] for GISSELL HUMPHREY LACTIC ACID, [id number] 18:07:00 Test Item Value Reference Range Interpretation Comments LACTATE BLOOD VENOUS 1.23 mmol/L 0.50-2.20 Specime n slightly (2) (BEAKER) (test hemolyzed code = 2872) Garment Supervisor ID - NTPPOCT-GLUCOSE [id number] 17:51:00 Test Item Value Reference Range Interpretation Comments POC-GLUCOSE METER 98 mg/dL 70-110 : TESTED A T [facility] 6720 (BEAKER) (test code = RADHA Tafoya [facility], 1538) [address]: Garment Supervisor/Techni homer ID = [id number] for BRENTON NALD, COLBY URINALYSIS W/ REFLEX URINE [id number] 17:19:00 Test Item Value Reference Range Interpretation Comments COLOR (BEAKER) (test code = 470) Red CLARITY (BEAKER) (test code = 469) Cloudy SPECIFIC GRAVITY UA (BEAKER) (test 1.014 1.001-1.035 code = 468) PH UA (BEAKER) (test code = 467) 6.5 5.0-8.0 PROTEIN UA (BEAKER) (test code = 30 mg/dL Negative A 464) GLUCOSE UA (BEAKER) (test code = Negative Negative 365) KETONES UA (BEAKER) (test code = Negative Negative 371) BILIRUBIN UA (BEAKER) (test code = Negative Negative 462) BLOOD UA (BEAKER) (test code = Large Negative A 461) NITRITE UA (BEAKER) (test code = Negative Negative 465) LEUKOCYTE ESTERASE UA (BEAKER) Large Negative A (test code = 466) UROBILINOGEN UA (BEAKER) (test 0.2 mg/dL 0.2-1.0 code = 463) RBC UA (BEAKER) (test code = 519) [address] /HPF WBC UA (BEAKER) (test code = 520) 8314 /HPF SOURCE(BEAKER) (test code = 2795) Garment Supervisor ID - [auto]Garment Supervisor ID - techRAD, CHEST, 1 VIEW, NON [id number] 12:40:00Reason for exam:->bilateral cracklesShould this be performed at the bedside?->YesFINAL REPORT RAD, CHEST, 1 VIEW, NON DEPT INDICATION: bilateral crackles COMPARISON: None. FINDINGS: Portable frontal view of the chest. IMPRESSION: Support Lines: None. Lungsand pleura: Linear subsegmental atelectasis versus scarring at the left base. Right lung is clear.. No pneumothorax.Heart and mediastinum: Unremarkable contours.Additional findings: None. Signed: JR Eddy, Heriberto Thrasherort Verified Date/Time: 01/03/2020 12:40:06 Reading Location: [facility], [place], operated by [facility] Reading Room B-TYPE NATRIURETIC FACTOR (BNP)2020-01-03 12:02:00 Test Item Value Reference Range Interpretation Comments B-TYPE NATRIURETIC PEPTIDE (BEAKER) 127 pg/mL 0-100 H (test code = 700) Garment Supervisor ID - NTPLACTIC ACID, [id number] 11:48:00 Test Item Value Reference Range Interpretation Comments LACTATE BLOOD VENOUS 2.69 mmol/L 0.50-2.20 H Specime n slightly (2) (BEAKER) (test hemolyzed code = 2872) Garment Supervisor ID - NTPLACTIC ACID, [id number] 09:24:00 Test Item Value Reference Range Interpretation Comments LACTATE BLOOD VENOUS 7.71 mmol/L 0.50-2.20 HH Specime n slightly (2) (BEAKER) (test hemolyzed code = 2872) Garment Supervisor ID - NTPPOCT-CALCIUM [id number] 09:04:00 Test Item Value Reference Range Interpretation Comments POC-CALCIUM IONIZED 1.20 mmol/L 1.12-1.27 : TESTED AT [facility] ([facility]) (test code = [address]) [place], [address]: Garment Supervisor/Techni homer ID = [id number] for YOHANNES ESQUIVEL [id number] 09:04:00 Test Item Value Reference Range Interpretation Comments POC-GLUCOSE (AKER) 144 mg/dL 70-110 H : TESTE D AT [facility] 6720 (test code = 1855) [place], [address]: Garment Supervisor/Techni homer ID = [id number] for YOHANNES ESQUIVEL POCT-BLOOD GASES, [id number] 09:03:00 Test Item Value Reference Range Interpretation Comments TEMP, CELSIUS-POC ([facility]) (test code = 1834) FIO2-POC ([facility]) (test code = 1835) PH, ARTERIAL-POC 7.298 7.350-7.450 L (BEAKER) (test code = 1836) PCO2, ARTERIAL-POC 33.3 mm Hg 35.0-45.0 L (AKER) (test code = 1837) PO2, ARTERIAL-POC 82.0 mm Hg 80.0-90.0 (AKER) (test code = 1838) SO2, ARTERIAL-POC 95.0 % 96.0-97.0 L (AKER) (test code = 1839) HCO3, ARTERIAL-POC 16.3 meq/L 21.0-29.0 L (AKER) (test code = 1840) BASE EXCESS, -10.0 meq/L -2.0-3.0 L : TESTED AT [place] [address] ARTERIAL-POC [facility], ([facility]) (test code [address]: = 1841) Garment Supervisor/Techni homer ID = [id number] for YOHANNES AHUMADA [id number] 09:03:00 Test Item Value Reference Range Interpretation Comments POC-SODIUM ([facility]) 141 meq/L 135-148 : TESTED AT [place] [address] (test code = 1542) [address] [facility], [address]: Garment Supervisor/Techni homer ID = [id number] for YOHANNES ESQUIVEL [id number] 09:03:00 Test Item Value Reference Range Interpretation Comments POC-POTASSIUM 4.2 meq/L 3.6-5.5 : TESTED AT [place] [address] ([facility]) (test code [facility], = 1540) [address]: Garment Supervisor/Techni homer ID = [id number] for YOHANNES ESQUIVEL [id number] 09:03:00 Test Item Value Reference Range Interpretation Comments POC-HEMOGLOBIN 13.6 g/dL 13.0-16.8 : TESTED AT [place] [address] ([facility]) (test code [facility], = 1856) [address]: Garment Supervisor/Techni homer ID = [id number] for YOHANNES ESQUIVEL [id number] 09:03:00 Test Item Value Reference Range Interpretation Comments POC-HEMATOCRIT 40 % 40-50 : Garment Supervisor/Te chnician ID = ([facility]) (test code = 419065 for YOHANNES ESQUIVEL 185) BASIC METABOLIC [id number] 05:52:00 Test Item Value Reference Range Interpretation Comments SODIUM (BEAKER) 141 meq/L 136-145 (test code = 381) POTASSIUM (BEAKER) 3.9 meq/L 3.5-5.1 (test code = 379) CHLORIDE (BEAKER) 112 meq/L 98-107 H (test code = 382) CO2 (BEAKER) (test 22 meq/L 22-29 code = 355) BLOOD UREA NITROGEN 17 mg/dL 7-21 (BEAKER) (test code = 354) CREATININE (BEAKER) 1.30 mg/dL 0.57-1.25 H (test code = 358) GLUCOSE RANDOM 151 mg/dL 70-105 H (BEAKER) (test code = 652) CALCIUM (BEAKER) 8.5 mg/dL 8.4-10.2 (test code = 697) EGFR (BEAKER) (test 54 mL/min/1.73 ESTIMA PATRIZIA GFR IS code = 1092) sq m NOT ACCURATE CREATININE CLEARANCE IN PREDICTING GLOMERULAR FILTRATION RATE . ESTIMATED GFR I S NOT APPLICABLE FOR DIALYSIS PATIEN TS. Garment Supervisor ID - LUI MPT/[id number] 05:47:00 Test Item Value Reference Range Interpretation Comments PROTIME (BEAKER) (test code = 14.4 seconds 11.9-14.2 H 759) INR (BEAKER) (test code = 370) 1.2 <=5.9 PARTIAL THROMBOPLASTIN TIME 29.0 seconds 22.5-36.0 (BEAKER) (test code = 760) Effective 02/02/2019: PT Reference Range ChangeNew: 11.9-14.2 Previous: 11.7- 14.7RECOMMENDED COUMADIN/WARFARIN INR THERAPY RANGESSTANDARD DOSE: 2.0-3.0 Includes: PROPHYLAXIS for venous thrombosis, systemic embolization; TREATMENT for venous thrombosis and/or pulmonary embolus.HIGH RISK: Target INR is2.5-3.5 for patients wiht mechanical heart valves.CBC W/PLT COUNT & AUTO [id number] 05:38:00 Test Item Value Reference Range Interpretation Comments WHITE BLOOD CELL COUNT (BEAKER) 18.6 K/ L 3.5-10.5 H (test code = 775) RED BLOOD CELL COUNT (BEAKER) 4.29 M/ L 4.63-6.08 L (test code = 761) HEMOGLOBIN (BEAKER) (test code = 13.1 GM/DL 13.7-17.5 L 410) HEMATOCRIT (BEAKER) (test code = 39.7 % 40.1-51.0 L 411) MEAN CORPUSCULAR VOLUME (BEAKER) 92.5 fL 79.0-92.2 H (test code = 753) MEAN CORPUSCULAR HEMOGLOBIN 30.5 pg 25.7-32.2 (BEAKER) (test code = 751) MEAN CORPUSCULAR HEMOGLOBIN CONC 33.0 GM/DL 32.3-36.5 (BEAKER) (test code = 752) RED CELL DISTRIBUTION WIDTH 13.8 % 11.6-14.4 (BEAKER) (test code = 412) PLATELET COUNT (BEAKER) (test 181 K/CU MM 150-450 code = 756) MEAN PLATELET VOLUME (BEAKER) 9.9 fL 9.4-12.4 (test code = 754) NUCLEATED RED BLOOD CELLS 0 /100 WBC 0-0 (BEAKER) (test code = 413) NEUTROPHILS RELATIVE PERCENT 87 % (BEAKER) (test code = 429) LYMPHOCYTES RELATIVE PERCENT 4 % (BEAKER) (test code = 430) MONOCYTES RELATIVE PERCENT 8 % (BEAKER) (test code = 431) EOSINOPHILS RELATIVE PERCENT 0 % (BEAKER) (test code = 432) BASOPHILS RELATIVE PERCENT 0 % (BEAKER) (test code = 437) NEUTROPHILS ABSOLUTE COUNT 16.16 K/ L 1.78-5.38 H (BEAKER) (test code = 670) LYMPHOCYTES ABSOLUTE COUNT 0.74 K/ L 1.32-3.57 L (BEAKER) (test code = 414) MONOCYTES ABSOLUTE COUNT (BEAKER) 1.43 K/ L 0.30-0.82 H (test code = 415) EOSINOPHILS ABSOLUTE COUNT 0.00 K/ L 0.04-0.54 L (BEAKER) (test code = 416) BASOPHILS ABSOLUTE COUNT (BEAKER) 0.03 K/ L 0.01-0.08 (test code = 417) IMMATURE GRANULOCYTES-RELATIVE 1 % 0-1 PERCENT (BEAKER) (test code = 2801) URINALYSIS W/ REFLEX URINE [id number] 05:29:00 Test Item Value Reference Range Interpretation Comments COLOR (BEAKER) (test code = 470) Yellow CLARITY (BEAKER) (test code = 469) Hazy SPECIFIC GRAVITY UA (BEAKER) (test 1.022 1.001-1.035 code = 468) PH UA (BEAKER) (test code = 467) 5.5 5.0-8.0 PROTEIN UA (BEAKER) (test code = 30 mg/dL Negative A 464) GLUCOSE UA (BEAKER) (test code = Negative Negative 365) KETONES UA (BEAKER) (test code = 20 mg/dL Negative A 371) BILIRUBIN UA (BEAKER) (test code = Negative Negative 462) BLOOD UA (BEAKER) (test code = 461) Moderate Negative A NITRITE UA (BEAKER) (test code = Negative Negative 465) LEUKOCYTE ESTERASE UA (BEAKER) Large Negative A (test code = 466) UROBILINOGEN UA (BEAKER) (test code 0.2 mg/dL 0.2-1.0 = 463) RBC UA (BEAKER) (test code = 519) 16 /HPF WBC UA (BEAKER) (test code = 520) 831 /HPF MUCUS (BEAKER) (test code = 1574) Rare SOURCE(BEAKER) (test code = 2795) Garment Supervisor ID - [auto]Garment Supervisor ID - techTISSUE [id number] 09:02:00Surgical Pathology Report Case: [id number] Authorizing Provider: Nimesh Herring MD Collected: 11/16/2019 1627 Ordering Location: [facility] Endoscopy Received: 11/17/2019 0806 Services Pathologist: [...] IS NEGATIVE. Signing Pathologist Direct Phone Line: [phone] signed by Vini Singh MD on 11/21/2019 at 9:02 [id number] diagnosis: Epigastric abdominal pain A. Gastric biopsy; [...] evaluated Immunohistochemistry technical testing was performed at [facility], Pathology Laboratory where it was developed and [...] qualified to perform high complexity clinical laboratory testing.[facility], Department of Pathology, [address] [place] [id number], [facility], [address] [place] [id number], [facility],[address] [place] [address], xr Fluoroscopy in Imaging per [id number] 15:26:54Patient: CAS RODRIGUZE Date/Time06/22/2018 13:30 CDTReason for ExamsurgeryReportLocation R 16Exam: [...] Osorio Eniola FSigned (Electronic Signature): 06/22/2018 3:26 pmNEEDLE EMG, 2 [id number] 16:14:00INTRAOPERATIVE MONITORING REPORT Patient Name: Cas Rodriguez [facility] Surgery Date: 01/15/18 [place] Pro: [id number] Monitoring began at 11:40 a.m and ended at 2:00p.m. Surgeon: Nitin Huggins M.D. Examining Physician : Sonido Milan M.D. Monitoring Technologist: INDER GonzalesIMProcedure: Laminectomy and Placement of Spinal Cord Stimulator [...] Sonido Milan M.D., FACNS, FAAN, FAESG89.4, M54.16 [place], STUDIO DATA ANALYST IN OR/30 MINUTE INCREMENTS 2018-01-15 14:19:00Reason for exam:->Implant spinal cord stimulator, thoracic laminectomyFINAL REPORT Fluoroscopy 1 view intraoperative 01/15/2018 2:13 PM CLINICAL HISTORY: Instrument localization COMPARISON: None available IMPRESSION: Please correlate imaging report findings with the procedure note prepared by Dr. Huggins, as an intra-procedure imaging consultation was not requested. Reported fluoroscopy time: 29.9 seconds. Signed: John Alfaro Verified Date/Time: 01/15/2018 14:19:13 Reading Location: [address] Consult Reading Room HIV-1 ANTIGEN WITH HIV-1/2 ANTIBODY 2018-01-11 09:49:00 Test Item Value Reference Range Interpretation Comments HIV-1 ANTIGEN WITH HIV 1\\T\\2 Nonreactive Nonreactive ANTIBODY (2) (RIAZGENESIS) (test code = 2586) [id number] 09:32:00 Test Item Value Reference Range Interpretation Comments GLUCOSE RANDOM (BEAKER) (test code 126 mg/dL 70-105 H = 652) BASIC METABOLIC [id number] 09:32:00 Test Item Value Reference Range Interpretation Comments SODIUM (BEAKER) 142 meq/L 136-145 (test code = 381) POTASSIUM (BEAKER) 4.1 meq/L 3.5-5.1 (test code = 379) CHLORIDE (BEAKER) 106 meq/L 98-107 (test code = 382) CO2 (BEAKER) (test 28 meq/L 22-29 code = 355) BLOOD UREA NITROGEN 21 mg/dL 7-21 (BEAKER) (test code = 354) CREATININE (BEAKER) 1.06 mg/dL 0.57-1.25 (test code = 358) GLUCOSE RANDOM 126 mg/dL 70-105 H (BEAKER) (test code = 652) CALCIUM (BEAKER) 9.5 mg/dL 8.4-10.2 (test code = 697) EGFR (BEAKER) (test 68 mL/min/1.73 ESTIMA PATRIZIA GFR IS code = 1092) sq m NOT ACCURATE CREATININE CLEARANCE IN PREDICTING GLOMERULAR FILTRATION RATE . ESTIMATED GFR I S NOT APPLICABLE FOR DIALYSIS PATIEN TS. PROTHROMBIN [id number] 09:29:00 Test Item Value Reference Range Interpretation Comments PROTIME (BEAKER) (test code = 13.8 seconds 11.7-14.7 759) INR (BEAKER) (test code = 370) 1.1 <=5.9 RECOMMENDED COUMADIN/WARFARIN INR THERAPY RANGESSTANDARD DOSE: 2.0 - 3.0 Includes: PROPHYLAXIS forvenous thrombosis, systemic embolization; TREATMENT for venous thrombosis and/or pulmonary embolus.HIGH RISK: Target INR is 2.5-3.5 for patients with mechanical heart valves.CBC W/PLT COUNT & AUTO DIFFERENTIAL 2018-01-11 09:19:00 Test Item Value Reference Range Interpretation Comments WHITE BLOOD CELL COUNT (BEAKER) 10.1 K/ L 3.5-10.5 (test code = 775) RED BLOOD CELL COUNT (BEAKER) 4.87 M/ L 4.63-6.08 (test code = 761) HEMOGLOBIN (BEAKER) (test code = 14.6 GM/DL 13.7-17.5 410) HEMATOCRIT (BEAKER) (test code = 46.1 % 40.1-51.0 411) MEAN CORPUSCULAR VOLUME (BEAKER) 94.7 fL 79.0-92.2 H (test code = 753) MEAN CORPUSCULAR HEMOGLOBIN 30.0 pg 25.7-32.2 (BEAKER) (test code = 751) MEAN CORPUSCULAR HEMOGLOBIN CONC 31.7 GM/DL 32.3-36.5 L (BEAKER) (test code = 752) RED CELL DISTRIBUTION WIDTH 12.7 % 11.6-14.4 (BEAKER) (test code = 412) PLATELET COUNT (BEAKER) (test 286 K/CU MM 150-450 code = 756) MEAN PLATELET VOLUME (BEAKER) 10.1 fL 9.4-12.4 (test code = 754) NUCLEATED RED BLOOD CELLS 0 /100 WBC 0-0 (BEAKER) (test code = 413) NEUTROPHILS RELATIVE PERCENT 61 % (BEAKER) (test code = 429) LYMPHOCYTES RELATIVE PERCENT 27 % (BEAKER) (test code = 430) MONOCYTES RELATIVE PERCENT 9 % (BEAKER) (test code = 431) EOSINOPHILS RELATIVE PERCENT 3 % (BEAKER) (test code = 432) BASOPHILS RELATIVE PERCENT 1 % (BEAKER) (test code = 437) NEUTROPHILS ABSOLUTE COUNT 6.16 K/ L 1.78-5.38 H (BEAKER) (test code = 670) LYMPHOCYTES ABSOLUTE COUNT 2.73 K/ L 1.32-3.57 (BEAKER) (test code = 414) MONOCYTES ABSOLUTE COUNT (BEAKER) 0.89 K/ L 0.30-0.82 H (test code = 415) EOSINOPHILS ABSOLUTE COUNT 0.25 K/ L 0.04-0.54 (BEAKER) (test code = 416) BASOPHILS ABSOLUTE COUNT (BEAKER) 0.07 K/ L 0.01-0.08 (test code = 417) IMMATURE GRANULOCYTES-RELATIVE 0 % 0-1 PERCENT (BEAKER) (test code = 2875)
--- NOTE | 2020-02-07 03:43 | ER ---
Nurse's Notes [facility] Name: Cas Denny Age: 74 yrs Sex: Male : 1945 Arrival Date: 02/07/2020 Time: 01:55 Bed 8 Private MD: Diagnosis: Cancer left lung Presentation: 02/06 02:05 Chief complaint: Patient states: Shortness of breath that has been worsening over the lp1 last few weeks; States diagnosed with cancerous tumor in left lung yesterday but unable to get appt at this time; Seen at [facility] by Dr. Whitten, had bronchoscopy last week; Per son, diagnosed with chest infection and prescribed Azithromycin and Cefpodoxime. Coronavirus screen: Patient reports a cough. Patient reports shortness of breath or difficulty breathing. Patient denies measured and/or subjective temperature greater than 100.4F prior to today's visit. Patient denies travel on a cruise ship or to a country the [facility] currently lists as an affected area. Patient denies contact with known and/or suspected case of COVID-19. Ebola Screen: No symptoms or risks identified at this time. Initial Sepsis Screen: Does the patient meet any 2 criteria? No. Patient's initial sepsis screen is negative. Does the patient have a suspected source of infection? No. Patient's initial sepsis screen is negative. Risk Assessment: Do you want to hurt yourself or someone else? Patient reports no desire to harm self or others. Onset of symptoms was February 07, 2020. 02:05 Method Of Arrival: Wheelchair lp1 02:05 Acuity: MIRZA 3 lp1 Triage Assessment: 02:51 General: Appears comfortable. Respiratory: Reports shortness of breath at rest Onset: rv The symptoms/episode began/occurred suddenly, the patient has mild shortness of breath. Historical: - Allergies: 02:09 No Known Allergies; lp1 - Home Meds: 02:34 allopurinol 300 mg oral tab 1 tab three times a day [Active]; amlodipine 5 mg oral tab rv 1 tab once daily [Active]; atorvastatin 20 mg Oral tab 1 tab once daily [Active]; fentanyl 100 mcg/hr Topical pt72 1 patch every 72 hours [Active]; gabapentin 300 mg Oral cap [Active]; [place] 10-325 mg Oral tab 1 tab as needed [Active]; megestrol 20 mg Oral tab 1 tab [Active]; Reglan 10 mg Oral tab 1 tab once daily [Active]; metoprolol succinate 25 mg oral Tb24 1 tab once daily [Active]; Protonix 40 mg Oral TbEC 1 tab once daily [Active]; phenazopyridine 200 mg Oral tab 1 tab twice a day [Active]; sucralfate 1 gram Oral tab 1 tab three times a day [Active]; - PMHx: 02:09 "bad esophagus"; Back pain; CAD; chronic back pain; GERD; Hypertension; Kidney stones; lp1 Prostate Cancer; - PSHx: 02:09 Appendectomy; Cholecystectomy; Prostatectomy; neck surgery; lp1 - Immunization history:: Adult Immunizations up to date. - Social history:: Smoking status: Patient denies any tobacco usage or history of. Screenin:51 Abuse screen: Denies threats or abuse. Denies injuries from another. Nutritional rv screening: No deficits noted. Tuberculosis screening: No symptoms or risk factors identified. Fall Risk None identified. Assessment: 02:51 General: Appears comfortable, Behavior is calm, cooperative. Pain: Denies pain. Neuro: rv Level of Consciousness is awake, alert, obeys commands, Oriented to person, place, time, situation. Cardiovascular: Patient's skin is warm and dry. Rhythm is sinus rhythm. Respiratory: Airway is patent Respiratory effort is even, unlabored, Breath sounds are coarse in left posterior lower lobe and right posterior lower lobe. Derm: Skin is intact. 02:56 Reassessment: AWAITING RT FOR OXYGEN INSTRUCTIONS AT HOME. rv 03:24 Reassessment: PATIENT DID NOT WANT TO WAIT FOR THE DISCHARGE INSTRUCTIONS. GIVEN rv PRESCRIPTION FOR OXYGEN. Vital Signs: 02:05 BP 135 / 74; Pulse 90; Resp 20; Temp 98.5(O); Pulse Ox 95% on R/A; Weight 76.66 kg (R); lp1 Height 5 ft. 8 in. (172.72 cm); Pain 0/10; 02:05 Body Mass Index 25.70 (76.66 kg, 172.72 cm) lp1 ED Course: 01:55 Patient arrived in ED. cl3 02:08 Triage completed. lp1 02:09 Arm band placed on right wrist. lp1 02:24 Edy Gamez MD is Attending Physician. pkl 02:30 Alberto Leonard, RN is Primary Nurse. rv 02:52 Patient has correct armband on for positive identification. Bed in low position. Call rv light in reach. Side rails up X 1. Pulse ox on. NIBP on. 02:52 No provider procedures requiring assistance completed. Patient did not have IV access rv during this emergency room visit. Administered Medications: No medications were administered Outcome: 03:25 Discharged to home via wheelchair. rv 03:25 Condition: unchanged 03:25 Discharge instructions given to patient, Instructed on discharge instructions, follow up and referral plans. Demonstrated understanding of instructions, follow-up care, Prescriptions given X 1. 03:43 Discharge ordered by . pkl 03:44 Patient left the ED. rv Signatures: Edy Gamez MD MD pkl Gema Watkins RN RN lp1 Alberto Leonard, RN RN Jose Coyne cl3
--- NOTE | 2020-02-07 03:43 | EDPHYS ---
Physician Documentation [facility] Name: Cas Denny Age: 74 yrs Sex: Male : 1945 Arrival Date: 02/07/2020 Time: 01:55 Bed 8 Private MD: ED Physician Edy Gamez HPI: 02/06 03:36 This 74 yrs old Male presents to ER via Wheelchair with complaints of pkl Shortness Of Breath. 03:36 The patient has shortness of breath at rest. Onset: The symptoms/episode began/occurred pkl 2 month(s) ago. Patient diagnosed with cancer in his left lung. Last week was told he has lung infection. Here tonight requesting oxygen supply so he can sleep at home. Historical: - Allergies: 02:09 No Known Allergies; lp1 - Home Meds: 02:34 allopurinol 300 mg oral tab 1 tab three times a day [Active]; amlodipine 5 mg oral tab rv 1 tab once daily [Active]; atorvastatin 20 mg Oral tab 1 tab once daily [Active]; fentanyl 100 mcg/hr Topical pt72 1 patch every 72 hours [Active]; gabapentin 300 mg Oral cap [Active]; [place] 10-325 mg Oral tab 1 tab as needed [Active]; megestrol 20 mg Oral tab 1 tab [Active]; Reglan 10 mg Oral tab 1 tab once daily [Active]; metoprolol succinate 25 mg oral Tb24 1 tab once daily [Active]; Protonix 40 mg Oral TbEC 1 tab once daily [Active]; phenazopyridine 200 mg Oral tab 1 tab twice a day [Active]; sucralfate 1 gram Oral tab 1 tab three times a day [Active]; - PMHx: 02:09 "bad esophagus"; Back pain; CAD; chronic back pain; GERD; Hypertension; Kidney stones; lp1 Prostate Cancer; - PSHx: 02:09 Appendectomy; Cholecystectomy; Prostatectomy; neck surgery; lp1 - Immunization history:: Adult Immunizations up to date. - Social history:: Smoking status: Patient denies any tobacco usage or history of. ROS: 03:36 Eyes: Negative for injury, pain, redness, and discharge, ENT: Negative for injury, pkl pain, and discharge, Neck: Negative for injury, pain, and swelling, Cardiovascular: Negative for chest pain, palpitations, and edema, Respiratory: Negative for shortness of breath, cough, wheezing, and pleuritic chest pain, Abdomen/GI: Negative for abdominal pain, nausea, vomiting, diarrhea, and constipation, Back: Negative for injury and pain, : Negative for injury, bleeding, discharge, and swelling, MS/Extremity: Negative for injury and deformity, Skin: Negative for injury, rash, and discoloration, Neuro: Negative for headache, weakness, numbness, tingling, and seizure. Exam: 03:36 Head/Face: Normocephalic, atraumatic. Eyes: Pupils equal round and reactive to light, pkl extra-ocular motions intact. Lids and lashes normal. Conjunctiva and sclera are non-icteric and not injected. Cornea within normal limits. Periorbital areas with no swelling, redness, or edema. ENT: Nares patent. No nasal discharge, no septal abnormalities noted. Tympanic membranes are normal and external auditory canals are clear. Oropharynx with no redness, swelling, or masses, exudates, or evidence of obstruction, uvula midline. Mucous membranes moist. Neck: Trachea midline, no thyromegaly or masses palpated, and no cervical lymphadenopathy. Supple, full range of motion without nuchal rigidity, or vertebral point tenderness. No Meningismus. Chest/axilla: Normal chest wall appearance and motion. Nontender with no deformity. No lesions are appreciated. Cardiovascular: Regular rate and rhythm with a normal S1 and S2. No gallops, murmurs, or rubs. Normal PMI, no JVD. No pulse deficits. Respiratory: Lungs have equal breath sounds bilaterally, clear to auscultation and percussion. No rales, rhonchi or wheezes noted. No increased work of breathing, no retractions or nasal flaring. Abdomen/GI: Soft, non-tender, with normal bowel sounds. No distension or tympany. No guarding or rebound. No evidence of tenderness throughout. Back: No spinal tenderness. No costovertebral tenderness. Full range of motion. Skin: Warm, dry with normal turgor. Normal color with no rashes, no lesions, and no evidence of cellulitis. MS/ Extremity: Pulses equal, no cyanosis. Neurovascular intact. Full, normal range of motion. Neuro: Awake and alert, GCS 15, oriented to person, place, time, and situation. Cranial nerves II-XII grossly intact. Motor strength 5/5 in all extremities. Sensory grossly intact. Cerebellar exam normal. Normal gait. Vital Signs: 02:05 BP 135 / 74; Pulse 90; Resp 20; Temp 98.5(O); Pulse Ox 95% on R/A; Weight 76.66 kg (R); lp1 Height 5 ft. 8 in. (172.72 cm); Pain 0/10; 02:05 Body Mass Index 25.70 (76.66 kg, 172.72 cm) lp1 MDM: 02:25 Patient medically screened. pkl 03:36 Data reviewed: vital signs, nurses notes. ED course: Prescription for oxygen supply pkl given to patient. Administered Medications: No medications were administered Disposition: 02/07/20 03:43 Discharged to Home. Impression: Cancer left lung. - Condition is Stable. - Medication Reconciliation Form, Thank You Letter, Antibiotic Education, Prescription Opioid Use form. - Follow up: Private Physician; When: 2 - 3 days; Reason: Re-evaluation by your physician. - Problem is new. - Symptoms are unchanged. Signatures: Edy Gamez MD MD pkl Gema Watkins RN RN lp1 Alberto Leonard RN RN rv Corrections: (The following items were deleted from the chart) 03:44 03:43 02/07/2020 03:43 Discharged to Home. Impression: Cancer left lung. Condition is rv Stable. Forms are Medication Reconciliation Form, Thank You Letter, Antibiotic Education, Prescription Opioid Use. Follow up: Private Physician; When: 2 - 3 days; Reason: Re-evaluation by your physician. Problem is new. Symptoms are unchanged. pkl
[2020-02-07 03:53] VITALS: BP 135/74; TEMP 98.5; O2SAT 95
== END 2020-02-07 03:44 | disposition home or self-care (01) ==
LOC: ER 01:54
DX: C78.02 Secondary malignant neoplasm of left lung (principal); Z85.46 Personal history of malignant neoplasm of prostate
CPT/HCPCS: 99284

== ENCOUNTER 2020-02-07 11:27 | Emergency (ER) | payer OTHER, BC ==
--- OUTSIDE RECORDS SUMMARY | 2020-02-07 12:38 | XMS REPORT | Continuity of Care Document ---
:1945 Author Organization [facility] [employer] Care Team Providers Name Role Phone [facility] Unavailable Un available Problems Problem Status Onset [...] Location Location Encounter Encounter Reason Attending ADM CO Stat Source Details Type Number For Provider Date Date Visit Outpatient [id number] CHANDRIKA 06/02 [facility]ias [facility]NA Outside [id number] 09/02 09/04 [facility] Neurology Medical /2017 [facility] [place] [facility] MNA Phone [phone] 10/01 10/03 [facility] her Neurology Message /2018 [facility] [place] Outpatient [id number] CHANDRIKA 11/30 [facility] [place] Procedures No Data Provided for This Section [...]
--- OUTSIDE RECORDS SUMMARY | 2020-02-07 12:38 | XMS REPORT | Clinical Summary ---
:1945 Author Organization [facility] Address [address] [place] [address] Care Team Providers Name Role Phone Unavailable [...]
--- OUTSIDE RECORDS SUMMARY | 2020-02-07 12:40 | XMS REPORT | Continuity of Care Document ---
:1945 Author Organization [facility] t Address [address] [place] [address] Care Team Providers Name Role Phone AMADO [...] disorder, systemic arterial (disorder) Active Problem 04/22/2019 [facility] Myoclonus Problem Active 2019-04-22 Mi asuncion (finding) 11:57:54 Neuro Myoclonus (finding) Active Problem 04/22/2019 [facility] Restless Problem Active 2019-04-22 Mis wes legs 11:57:54 Neuro (disorder) Restless legs (disorder) Active [facility] Allergies, Adverse Reactions, Alerts Allergy Allergy Status Severity Reaction(s) Onset Inactive Treating Comm ents Source Name Type Date Date Clinician No Known No Known Active Memori a Medicati Medicati l on on Matthias Sutton [facility] Social History Smoking Status Start Date Stop Date Source Social History 2018-06-02 13:59:37 2018-06-02 13:59:37 [facility] Medications This patient has no known medications. Procedures This patient has no known procedures. Encounters Start End Encounter Admission Attending Care Care Encounter Source Date/Time Date/Time Type Type Clinicians Facility Department ID 2020-01-19 2020-01-19 Office Aureliano Whitten [id number] 13:41:30 14:41:30 Visit Amado AMBULATOR [id number] Y [id number] 2018-11-30 2018-11-30 Outpatient MHIEALT MHIEALT [id number] Memoria 13:00:00 13:00:00 01 zohra Rizzo 2018-10-01 2018-10-03 Phone MHIEALT MNA [id number] [facility] 20:05:00 05:59:59 Message Neurology 01 Neur o Lacey 2018-10-01 2018 Outpatient MHMISCHER MHMISCHER [id number] 14:05:00 23:59:59 2018-09-02 2018-09-04 Outside MHIEALT MNA [id number] [facility] 22:32:00 05:59:59 Medical Neurology 00 Neur o Records [place] 2018-09-02 2018-09-03 Outpatient MHMISCHER MHMISCHER [id number] 16:32:00 23:59:59 00 2018-06-02 2018-06-02 Outpatient MHIEALT MHIEALT [id number] Memoria 08:45:00 08:45:00 00 zohra Matthias Results Test Description Test Time Test Comments Results Result [facility] e Comments TISSUE EXAM 2020-01-30 Surgical Pathology Report 10:13:00 Case: [id number] Authorizing Provider: Aureliano Whitten MD Collected: 01/25/2020 09:44 AM Ordering Location: [facility] Received: 01/25/2020 02:09 PM SERVICES Pathologist: [...] (SEE COMMENT) Signing Pathologist Direct Phone Line: [phone] y signed by Queenie Olvera MD on 01/30/2020 at 10:13 AMBoth specimens are extensively crushed without discernable histologic features. Mitotic activity cannot be evaluated. No necrosis is seen. Immunostain for TTF1, synaptophysin, chromogranin are positive; while PSA, PAP is negative. Ki-67 proliferative index is approximately 1%. Findings support the above diagnosis.Please correlate with results of concurrently obtained cytology specimens ([id number], [id number] nodule; mediastinal lymphadenopathy A. Lung, Right Middle [...] evaluated Immunohistochemistry technical testing was performed at [facility], Pathology Laboratory where it was developed [...] qualified to perform high complexity clinical laboratory testing.[facility], Department of Pathology, [address] [place] [address], [facility], [facility] of [facility], [address] [place] [address], [facility]lwfdvSan [facility], Department of Pathology, [address] [place] [address], SURGICALLY OBTAINED CULTURE + GRAM STAIN 2020-01-28 11:20:00 Test Item Value Reference Range Interpretation Comme nts CULTURE (BEAKER) (test code = 1095) No growth GRAM STAIN RESULT (BEAKER) (test code = 1123) No WBCs GRAM STAIN RESULT (BEAKER) (test code = 56091) No organisms seen SURGICALLY OBTAINED CULTURE + GRAM [id number] 11:20:00 Test Item Value Reference Range Interpretation Comments CULTURE (BEAKER) (test code No growth = 1095) GRAM STAIN RESULT (BEAKER) 1+ WBCs (test code = 1123) GRAM STAIN RESULT (BEAKER) No organisms seen (test code = 53645) FINE NEEDLE ASPIRATE BY [id number] 15:24:00Medical Cytology Report Case: [id number] Authorizing Provider: Aureliano Whitten MD Collected: 01/25/2020 10:20 AM Ordering Location: 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 Please also see surgical pathology report [id number] and cytopathology reports [id number], and 1220 through 1226.82017, 23863, 31967, 09793 x 3, 69156 x 2Lung nodule; mediastinal lymphadenopathyLYMPH NODE, SUBCARINAL, STATION 7 FNAReceived 37 ml cytorich red fixative sample; prepared cell block(A2) and 2 cytospinsCollected: [id number] 0Received: [id number] interpretation of this case included the use of immunohistochemistry or specialstains.Please see the immunohistochemistry results in the COMMENT section. Control Slides Examined:In-house known positive controls were evaluated along with the test tissue. These control slides run alongside of the patients sample show appropriate staining. Internal positive and negative controlswhen available are evaluated Immunohistochemistry technical testing was performed at [facility], Pathology Laboratory where it was developed [...] qualified to perform high complexity clinical laboratory testing.[facility], Department of Pathology, [address] [place], [place] [id number], [facility], Department of Pathology, [address] [place] [address], HypqinSan [facility], Department of Pathology, [address] [place] [address], MSRD NEEDLE ASPIRATE BY EBUS 2020-01-27 14:11:00Medical Cytology Report Case: [id number] Authorizing Provider: Aureliano Whitten MD Collected: 01/25/2020 10:43 AM Ordering Location: [facility] Received: 01/25/2020 11:24 AM SERVICES Pathologist: Amee Reich MD Specimen: Lymph Node, Interlobar, Right, Station 11R LYMPH NODE, INTERLOBAR, RIGHT, STATION 11R, FNA BY CLINICIAN (CYTOSPINS AND CELL BLOCK OF ASPIRATE): - SATISFACTORY FOR EVALUATION - NEGATIVE FOR METASTATIC MALIGNANT CELLS - EVIDENCE OF LYMPH NODE SAMPLING (POLYMORPHOUS LYMPHOID TISSUE PRESENT) Signing Pathologist Direct Phone Line: [phone] signed by Amee Reich MD on 01/27/2020 at 2:11 PMPlease also see surgical pathology report [id number] and cytopathology reports [id number], and 1220 through 1225.62661, 43680Xnmi nodule; mediastinal lymphadenopathyLYMPH NODE, INTERLOBAR, RIGHT, STATION 11R FNAReceived 35 ml cytorich red fixative sample; prepared cell block(A2) and 2 cytospinsCollected: [id number]: [id number] interpretation of this case included the use of immunohistochemistry or special stains.Control Slides Examined: In-house known positive controls were evaluated along with the test tissue. These control slides run alongside of the patients sample show appropriate staining. Internal positive and negative controls when available are evaluated Immunohistochemistry technical testing was performed at [facility], Pathology Laboratory where it was developed [...] as qualified to perform high complexity clinicallaboratory testing.[facility], Department of Pathology, [address] [place] [address], [facility]lrnmeSan [facility], Department of Pathology, [address] [place] [address], TbjwhlSan [facility], Department of Pathology, [address] [place] [address], DYKH NEEDLE ASPIRATE BY [id number] 14:05:00Medical Cytology Report Case: [id number] Authorizing Provider: Aureliano Whitten MD Collected: 01/25/2020 10:31 AM Ordering Location: [facility] Received: 01/25/2020 11:25 AM SERVICES Pathologist: Amee Reich MD Specimen: Lymph Node, Lower Paratracheal, Right, Station 4R LYMPH NODE, LOWERPARATRACHEAL, RIGHT, STATION 4R, FNA BY CLINICIAN (CYTOSPINS AND CELL BLOCK OF ASPIRATE): - SATISFACTORY FOR EVALUATION - NEGATIVE FOR METASTATIC MALIGNANT CELLS - EVIDENCE OF LYMPH NODE SAMPLING (POLYMORPHOUS LYMPHOID TISSUE PRESENT) Signing Pathologist Direct Phone Line: [phone] signed by Amee Reich MD on 01/27/2020 at 2:05 PMPlease also see surgical pathology [id number] and cytopathology reports [id number], and 1220 through 1226.82739, 77996Adxo nodule; mediastinal lymphadenopathyLYMPH NODE, LOWER PARATRACHEAL, RIGHT, STATION 4R FNAReceived 36 ml cytorich red fixative sample; prepared cell block(A2) and 2 cytospinsCollected: [id number]: [id number] interpretation of this case included the use of immunohistochemistry or special stains.Control Slides Examined: In-house known positive controls were evaluated along with the test tissue. These control slides run alongside of the patients sample show appropriate staining. Internal positive and negative controls when available are evaluated Immunohistochemistry technical testing was performed at [facility], Pathology Laboratory where it was [...] qualified to perform high complexity clinical laboratory testing.[facility], Department of Pathology, [address] [place] [address], [facility], Department of Pathol ogy, [address] [place] [address], WsrzujSan Dimas [facility], Department of Pathology, [address] [place] [address], XSWJ NEEDLE ASPIRATE BY [id number] 13:58:00Medical Cytology Report Case: [id number] Authorizing Provider: Aureliano Whitten MD Collected: 01/25/2020 10:16 AM Ordering Location: [facility] Received: 01/25/2020 11:25 AM SERVICES Pathologist: Amee Reich MD Specimen: Lymph Node, Lower Paratracheal, Left, Station 4L LYMPH NODE, LOWERPARATRACHEAL, LEFT, STATION 4L, FNA BY CLINICIAN (CYTOSPINS AND CELL BLOCK OF ASPIRATE): - SATISFACTORY FOR EVALUATION - NEGATIVE FOR METASTATIC MALIGNANT CELLS - EVIDENCE OF LYMPH NODE SAMPLING ( POLYMORPHOUS LYMPHOID TISSUE PRESENT) Signing Pathologist Direct Phone Line: [phone] signed by Amee Reich MD on 01/27/2020 at 1:58 PMPlease also see surgical pathology report [id number] and cytopathology reports [id number], and 1220 through 1226.42738, 96251Ovji nodule; mediastinal lymphadenopathyLYMPH NODE, LOWER PARATRACHEAL, LEFT, STATION 4L FNAReceived 35 ml cytorich red fixative sample; prepared cell block(A2) and 2 cytospinsCollected: [id number]: [id number] interpretation of this case included the use of immunohistochemistry or special stains.Control Slides Examined:In-house known positive controls were evaluated along with the test tissue. These control slides run alongside of the patients sample show appropriate staining. Internal positive and negative controlswhen available are evaluated Immunohistochemistry technical testing was performed at [facility], Pathology Laboratory where it was developed [...] qualified to perform high complexity clinical laboratory testing.[facility], Department of Pathology, [address] [place] [address], PbelxySan [facility], Department of Patholog y, [address] [place] [address], [facility]En[facility], Department of Pathology, [address] [place] [address], KXPI NEEDLE ASPIRATE BY [id number] 13:52:00Medical Cytology Report Case: [id number] Authorizing Provider: Aureliano Whitten MD Collected: 01/25/2020 10:08 AM Ordering Location: [facility] Received: 01/25/2020 11:24 AM SERVICES Pathologist: Amee Reich MD Specimen: Lymph Node, Interlobar, Left, Station 11L LYMPH NODE, INTERLOBAR, LEFT, STATION 11L, FNA BY CLINICIAN (CYTOSPINS AND CELL BLOCK OF ASPIRATE): - SATISFACTORY FOR EVALUATION - NEGATIVE FOR METASTATIC MALIGNANT CELLS - EVIDENCE OF LYMPH NODE SAMPLING (POLYMORPHOUS LYMPHOID TISSUE PRESENT) Signing Pathologist Direct Phone Line: [phone] signed by Amee Reich MD on 01/27/2020 at 1:52 PMPlease also see surgical pathology report [id number] and cytopathology reports [id number], and 1220 through 1226.03065, 79549Eult nodule; mediastinal lymph adenopathyLYMPH NODE, INTERLOBAR, LEFT, STATION 11L FNAReceived 35 ml cytorich red fixative sample; prepared cell block(A2) and 2 cytospinsCollected: [id number]: 477630Bhe interpretation of this case included the use of immunohistochemistry or special stains.Control Slides Examined: In-house known positive controls were evaluated along with the test tissue. These control slides run alongside ofthe patients sample show appropriate staining. Internal positive and negative controls when available are evaluated Immunohistochemistry technical testing was performed at [facility], Pathology Laboratory where it was developed [...] qualified to perform high complexity clinical laboratory testing.[facility], Department of Pathology, [address] [place] [address], [facility]ujqjSan [facility], Department of Pathology, [address] [place] [address] 164[address], FjuiepSan Dimas [facility], Department of Pathology, [address] [place] [address], [id number] 13:42:00Medical Cytology Report Case: [id number] Authorizing Provider: Aureliano Whitten MD Collected: 01/25/2020 10:14 AM Ordering Location: [facility] Received: 01/25/2020 11:24 AM SERVICES Pathologist: Amee Reich MD Specimen: Lung, Right Middle Lobe, BAL LUNG, RIGHT MIDDLE LOBE, BAL (CYTOSPINS): - RARE CLUSTERS OF ATYPICAL SPINDLED CELLS, SUGGESTIVE OF CARCINOID TUMOR (SEE COMMENT) Signing Pathologist Direct Phone Line: [phone] signed by Amee Reich MD on 01/27/2020 at 1:42 PMCytospins and cell block sections show rare spindle cells, morp hologically similar to the lesional cells seen in [id number]. Further analysis is precluded due to thesimilar morphologic features of some bronchial epithelial cells and a lack of cell block section forfurther evaluation. Please also see surgical pathology report [id number] and cytopathology reports [id number], and 1220 through 1226.58244Huko nodule; mediastinal lymphadenopathyLUNG, RIGHT MIDDLE LOBE BALReceived 5 ml bloody fluid; prepared 4 cytospinsCollected: [id number]: 238447PljnhzsfywshCddzqsRedwood Memorial Hospital, Department of Pathology, [address] [place] [address], FmcqcuSan Dimas [facility], Department of Pathology, [address] [place] [address], SbsmauSan Dimas [facility], Department of Pathology, [address] [place] [address]85, ZAZJFHMJ 2020-01-27 13:41:00Medical Cytology Report Case: [id number] Authorizing Provider: Aureliano Whitten MD Collected: 01/25/2020 09:36 AM Ordering [facility]: [facility] Received: 01/25/2020 11:24 AM SERVICES Pathologist: Amee Reich MD Specimen: Lung, Right Middle Lobe LUNG, RIGHT MIDDLE LOBE, BRONCHIAL BRUSHING (CYTOSPINS AND CELL BLOCK): - FEW CLUSTERS OF ATYPICAL SPINDLED CELLS, COMPATIBLE WITH CARCINOID TUMOR (SEE COMMENT) Signing Pathologist Direct Phone Line: [phone] signed by Amee Reich MD on 01/27/2020 at 1:41 PMCytospins and cell block sections show a few spindle cells, morphologically similar to the lesional cells seen in [id number]. Please also see surgical pathology report [id number] and cytopathology reports [id number], and 1221 through 1226.15695, 08818Avex nodule; mediastinal lymphadenopathyLUNG, RIGHT MIDDLE LOBE BRONCHIAL BRUSHINGReceived 1 brush tip in 30 ml cytorich red fixative; prepared cell block(A2) of red floating bloody clot and2 cytospinsCollected: [id number]: [id number]e Children's Hospital, Departmentof Pathology, [address] [place] [address], RfifhsSan Dimas [facility], Department of Pathology, [address] [place] [address], SqirkxSan Dimas [facility], Department of Pathology, [address] [place] [address], XTZL NEEDLE ASPIRATE BY [id number] 13:41:00Medical Cytology Report Case: [id number] Authorizing Provider: Aureliaon Whitten MD Collected: 01/25/2020 09:19 AM Ordering Location: [facility] Received: 01/25/2020 09:26 AM SERVICES Pathologist: Amee Reich MD Specimen: Lung, Right Middle Lobe LUNG, RIGHT MIDDLE LOBE, FNA BY CLINICIAN (DIRECT SMEARS AND CELL BLOCK OF ASPIRATE): - NEUROENDOCRINE PROLIFERATION, COMPATIBLE WITH CARCINOID TUMOR (SEE COMMENT) Signing Pathologist Direct Phone Line: [phone] Smears are paucicellular while the cell block [...] recommended. Please also see surgical pathology report [id number] and cytopathology [id number] through 1226.15685, 69074, 37780, 04188, 8841 x 3, 49430Ceyi nodule; mediastinal lymphadenopathyLUNG, RIGHT MIDDLE LOBE FNAPrepared 6 direct smear slides and cell block(A2) from 43 ml cytorichred fixative sampleCollected: [id number]: [id number] ONLY (9:37AM, 01/25/20, NS)The interpretation of this case included the use of immunohistochemistry or special stains.Control Slides Examined: In-house known positive controls were evaluated along with the test tissue. These control slides runalongside of the patients sample show appropriate staining. Internal positive and negative controls when available are evaluated Immunohistochemistry technical testing was performed at [facility], Pathology Laboratory where it was developed [...] qualified to perform high complexity clinical laboratory testing.[facility], Department of Pathology, [address] [place] [address], [place] [address], HpqzkbSan Dimas Community Hospital, Department of Pathology, [address] [place] [address], XkwfpzSan Dimas Community Hospital, Department of Pathology, [address] [place] [address], USZI FNA [id number] 13:00:00 Test Item Value Reference Range Interpretation Comments CYTOLOGY RESULT POINTER See Separate Report (BEAKER) (test code = 2629) EBUS FNA [id number] 13:00:00 Test Item Value Reference Range Interpretation Comments CYTOLOGY RESULT POINTER See Separate Report (BEAKER) (test code = 2629) EBUS FNA [id number] 13:00:00 Test Item Value Reference Range Interpretation Comments CYTOLOGY RESULT POINTER See Separate Report (BEAKER) (test code = 2629) EBUS FNA [id number] 13:00:00 Test Item Value Reference Range Interpretation Comments CYTOLOGY RESULT POINTER See Separate Report (BEAKER) (test code = 2629) CYTOLOGY [id number] 13:00:00 Test Item Value Reference Range Interpretation Comments CYTOLOGY RESULT POINTER See Separate Report (BEAKER) (test code = 2629) EBUS FNA [id number] 13:00:00 Test Item Value Reference Range Interpretation Comments CYTOLOGY RESULT POINTER See Separate Report (BEAKER) (test code = 2629) FINE NEEDLE ASPIRATE (FNA) [id number] 13:00:00 Test Item Value Reference Range Interpretation Comments CYTOLOGY RESULT POINTER See Separate Report (BEAKER) (test code = 2629) CYTOLOGY [id number] 13:00:00 Test Item Value Reference Range Interpretation Comments CYTOLOGY RESULT POINTER See Separate Report (BEAKER) (test code = 2629) RAD, CHEST, 1 VIEW, NON [id number] 11:47:00Reason for exam:->s/p RML TBBX, rule out [...] Oseguera Verified Date/Time: 01/25/2020 11:47:05 Reading Location: [facility] Radiology Reading Room EBUS FNA [id number] 11:00:00 Test Item Value Reference Range Interpretation Comments CYTOLOGY RESULT POINTER See Separate Report (BEAKER) (test code = 2629) FL, FLUORO, NON-SPECIFIC, UP TO 1 [id number] 10:15:00Reason for exam:- >Super DFINAL REPORT A fluoroscopic unit was utilized for a procedure performed in the operating room. No interpretation was requested. Please refer to the operative report regarding findings. Please refer to PACS for patient radiation dose information. Signed: Camille Oseguera Verified Date/Time: 01/25/2020 10:15:14 Reading Location: [facility] Radiology Reading Room COMPREHENSIVE METABOLIC [id number] 07:22:00 Test Item Value Reference Range Interpretation [...] S NOT APPLICABLE FOR DIALYSIS PATIEN TS. Men'S Leather Dress Belt Maker ID - [id number] 07:11:00 Test Item Value Reference Range Interpretation [...] INR is2.5-3.5 for patients wiht mechanical heart valves.[id number] 07:11:00 Test Item Value Reference Range Interpretation Comments PARTIAL THROMBOPLASTIN TIME 27.1 seconds 22.5-36.0 (BEAKER) (test code = 760) CBC W/PLT COUNT & AUTO [id number] 07:04:00 Test Item Value Reference Range Interpretation [...] code = 2801) CT, CHEST, WITHOUT IV [id number] 16:04:00FINAL REPORT CT of the chest, without [...] Benavideseport Verified Date/Time: 01/20/2020 16:04:10 Reading Location: [address] Ortho Consult Reading Room CT, CHEST, WITH [id number] 12:17:00FINAL REPORT CT Chest with contrast History:Right [...] for evaluation of these nodules. Signed: Kevin Clemente MDReport Verified Date/Time: 01/13/2020 12:17:46 Reading Location: [address] Consult Reading Room Electronically signed by: Pricilla ZENG 01/13/2020 12:17 PMCT, [id number] 08:40:00Please specify:->Renal Stone ProtocolFINAL REPORT TECHNIQUE: CT [...] MDReport Verified Date/Time: 01/13/2020 08:40:38 Reading Location: [facility] Diagnostic Imaging Reading Room - [place] [address] BASIC METABOLIC [id number] 05:22:00 Test Item Value Reference Range Interpretation [...] S NOT APPLICABLE FOR DIALYSIS PATIEN TS. Men'S Leather Dress Belt Maker ID - [id number] LCBC W/PLT COUNT & AUTO [id number] 04:54:00 Test Item Value Reference Range Interpretation [...] (BEAKER) (test code = 2801) BASIC METABOLIC [id number] 17:03:00 Test Item Value Reference Range Interpretation [...] S NOT APPLICABLE FOR DIALYSIS PATIEN TS. Men'S Leather Dress Belt Maker ID - DBRAD, CHEST, 1 VIEW, NON [id number] 16:59:00Reason for exam:- >to rule out pneumothoraxShould [...] Fernandez Verified Date/Time: 01/12/2020 16:59:55 Reading Location: [address] Ortho Consult Reading Room HEMOGLOBIN AND [id number] 16:48:00 Test Item Value Reference Range Interpretation Comments HEMOGLOBIN (BEAKER) (test code = 12.7 GM/DL 13.7-17.5 L 410) HEMATOCRIT (BEAKER) (test code = 39.2 % 40.1-51.0 L 411) Men'S Leather Dress Belt Maker ID - [id number], FLUORO, NON-SPECIFIC, UP TO 1 [id number] 16:21:00 Reason for exam:->PCNLFINAL REPORT A fluoroscopic unit was utilized for a procedure performed in the operating room. No interpretation was requested. Please refer to the operative report regarding findings. Please refer to PACS for patient radiation dose information. Signed: Rosa Maria Sloan MDReport Verified Date/Time: 01/12/2020 16:21:19 Reading Location: [address] Radiology Reading Room SARS-COV2/RT-PCR ([facility])2020-01-11 11:20:00 Test Item Value Reference Range Interpretation Comments SARS-COV2/RT-PCR (test code = Negative Not Detected, Negative 3095833) SARS-COV-2 PERFORMING LAB CPL (test code = 5591858) BLOOD [id number] 14:00:00 Test Item Value Reference Range Interpretation Comments CULTURE (BEAKER) (test No growth in 5 days code = 1095) BLOOD [id number] 14:00:00 Test Item Value Reference Range Interpretation Comments CULTURE (BEAKER) (test No growth in 5 days code = 1095) BLOOD [id number] 14:02:00 Test Item Value Reference Range Interpretation Comments CULTURE (BEAKER) A From Aerobi c Bottle (test code = Only Same organ ism has 1095) been isolated f rom cultures(s) of the same body site and collection date . Repeat identifi cation and susceptibil ity testing perform ed only after [facility]at [facility].Refe r to previous cultur e ofProteus mirabilisESBL P ositive GRAM STAIN From aerobic RESULT (BEAKER) bottle only: (test code = gram variable 1123) rods BLOOD [id number] 14:01:00 Test Item Value Reference Range Interpretation [...] bottle only: 1123) gram variable rods SARS-COV2/RT-PCR ([facility])2020-01-08 10:40:00 Test Item Value Reference Range Interpretation Comments SARS-COV2/RT-PCR (test code = Negative Not Detected, Negative [id number]) SARS-COV-2 PERFORMING LAB CPL (test code = 9742749) RAD, CHEST, 1 VIEW, NON [id number] 14:38:00Reason for exam:->PICC LINE PLACEMENTShould this be performed at the bedside?->YesFINAL REPORT TECHNIQUE: Frontal chest radiograph dated 01/06/2020. CLINICAL HIS TORY: PICC line COMPARISON STUDY: Chest radiograph performed 01/03/2020 Impression:Right-sided PICC is seen with the tip projected over the superior vena cava at the level of the afshan. Nerve stimulator wires are again seen over the thoracic spine. There is an increased airspace opacity in the right mi ddle/lower lobe. Stable bibasilar atelectasis in the left lower lobe.No pleural effusion or pneumothorax. Cardiomediastinal silhouette is normal in size. No pulmonary edema. Bones are osteopenic. Degenerative changes are seen in the spine. Signed: Ida Jenkinseport Verified Date/Time: 01/06/2020 14:38:59 Reading Location: [address] Radiology Reading Room ANG, NEPHROSTOMY, PERC, EXTERNAL MLLWL2019-06-16 13:01:00Reason for exam:->needs PCN on the right for urgent decompressionFINAL REPORT Procedure: Percutaneous nephrostomy catheter placement. History: Suspected obstructed infected right kidney. Supervisor [employer]: Jonas Ibarra M.D. Ortho Tech: Noemi hale M.D. Modality: Ultrasound and fluoroscopy. [...] sequential dilatation of the tract, an 8.5 Burkinan nephrostomy catheter was placed, pigtail locked in [...] above. Impression:Successful ultrasound and fluoroscopic guided 8.5 Burkinan nephrostomy catheter placement in the right kidney via a posterior superior calyx as described above. Further management dictated by the clinical scenario. The nephrostomy catheter(s) should be exchanged at the latest in three months. Thank you for the opportunity to assist in the care of your patient. Signed: Jonas Ibarra MDReport Verified Date/Time: 01/06/2020 13:01:05 Reading Location: [place] [address] Angio Body Reading Room BASIC METABOLIC [id number] 06:50:00 Test Item Value Reference Range Interpretation [...] S NOT APPLICABLE FOR DIALYSIS PATIEN TS. Men'S Leather Dress Belt Maker ID - EMERSONCBC W/PLT COUNT & AUTO [id number] 06:45:00 Test Item Value Reference Range Interpretation [...] (test code = 2801) BLOOD CULTURE IDENTIFICATION [id number] 09:34:00 Test Item Value Reference Range Interpretation Comments LISTERIA MONOCYTOGENES Not detected Not detected (test code = 1361666) STAPHYLOCOCCUS (test code Not detected Not detected = 6819591) STAPHYLOCOCCUS AUREUS Not detected Not detected (test code = 6359979) STREPTOCOCCUS (test code = Not detected Not detected 2743347) STREPTOCOCCUS AGALACTIAE Not detected Not detected (GROUP B) (test code = 3925095) STREPTOCOCCUS PNEUMONIAE Not detected Not detected (test code = 7645457) STREPTOCOCCUS PYOGENES Not detected Not detected (GROUP A) (test code = 2355560) ACINETOBACTER BAUMANNII Not detected Not detected (test code = 6555128) HAEMOPHILUS INFLUENZAE Not detected Not detected (test code = 7111828) NEISSERIA MENINGITIDIS Not detected Not detected (test code = 9057601) ENTEROBACTERIACEAE (test Ple ase refer to code = 7815575) culture resu lts for ID and susceptibilitie s.. ENTEROBACTER CLOACOE Not detected Not detected COMPLEX (test code = 4807791) KLEBSIELLA OXYTOCA (test Not detected Not detected code = 3668964) KLEBSIELLA PNEUMONIAE Not detected Not detected (test code = 1650) PROTEUS (test code = Please refer to 9271914) culture results for ID and susceptibilitie s.. SERRATIA MARCESCENS (test Not detected Not detected code = 5275533) ELISABETH ALBICANS (test Not detected Not detected code = 4128074) ELISABETH GLABRATA (test Not detected Not detected code = 1515683) ELISABETH KRUSEI (test code Not detected Not detected = 1102429) ELISABETH PARAPSILOSIS (test Not detected Not detected code = 8898802) ELISABETH TROPICALIS (test Not detected Not detected code = 4038348) ESCHERICHIA COLI (test Not detected Not detected code = 4648561) METHICILLIN-RESISTANCE GENE (test code = 0276602) VANCOMYCIN-RESISTANCE GENE (test code = 6440755) CARBAPENEM-RESISTANCE GENE Not detected Not detected (test code = 5445147) ENTEROCOCCUS-BEAKER (test Not detected Not detected code = 2323646) PSEUDOMONAS Not detected Not detected AERUGINOSA-BEAKER (test code = 0107755) Other bacteria and resistance markers not targeted by this PCR panel cannot be excluded; therefore clinical correlation and follow up of serology, culture results, and other molecular studies is required. The results are not intended to be used as the sole means for clinical diagnosis or patient management decisions. This sample was tested at the [facility] Molecular Diagnostics Laboratory using the TapEngage Blood Culture ID Panel. It is FDA cleared and has been verified and approved by the [facility] for clinical use. This laboratory is CLIA-certified and College ofAmerican Pathologists (CAP)-accredited to perform high complexity testing.POCT-GLUCOSE [id number] 07:21:00 Test Item Value Reference Range Interpretation Comments POC-GLUCOSE METER 100 mg/dL 70-110 : TESTED A T [facility] 6720 (BEAKER) (test code = RADHA Tafoya [facility], 1538) [address]: Men'S Leather Dress Belt Maker/Techni homer ID = [id number] for MAYELA AMARO BASIC METABOLIC [id number] 05:16:00 Test Item Value Reference Range Interpretation [...] S NOT APPLICABLE FOR DIALYSIS PATIEN TS. Men'S Leather Dress Belt Maker ID - LACBC W/PLT COUNT & AUTO [id number] 04:48:00 Test Item Value Reference Range Interpretation [...] PERCENT (BEAKER) (test code = 2801) POCT-GLUCOSE [id number] 21:37:00 Test Item Value Reference Range Interpretation Comments POC-GLUCOSE METER 128 mg/dL 70-110 H : TESTED A T [facility] 6720 (BEAKER) (test code = [facility], 153) [address]: Men'S Leather Dress Belt Maker/Techni homer ID = [id number] for MAYELA AMARO POCT-GLUCOSE [id number] 17:12:00 Test Item Value Reference Range Interpretation Comments POC-GLUCOSE METER 110 mg/dL 70-110 : TESTED A T [facility] 6720 (BEAKER) (test code [facility], = 1538) [address]: Men'S Leather Dress Belt Maker/Techni homer ID = [id number] for LATLORA HURD POCT-GLUCOSE [id number] 11:22:00 Test Item Value Reference Range Interpretation Comments POC-GLUCOSE METER 89 mg/dL 70-110 : TESTED A T [facility] 6720 (BEAKER) (test code = [facility], 153) [address]: Men'S Leather Dress Belt Maker/Techni homer ID = [id number] for GRAN T TIEARA POCT-GLUCOSE [id number] 06:18:00 Test Item Value Reference Range Interpretation Comments POC-GLUCOSE METER 106 mg/dL 70-110 : TESTED A T [facility] 6720 (BEAKER) (test code = [facility], 153) [address]: Men'S Leather Dress Belt Maker/Techni homer ID = [id number] for GISSELL HUMPHREY CBC W/PLT COUNT & AUTO [id number] 06:03:00 Test Item Value Reference Range Interpretation [...] (BEAKER) (test code = 2801) BASIC METABOLIC [id number] 05:55:00 Test Item Value Reference Range Interpretation [...] S NOT APPLICABLE FOR DIALYSIS PATIEN TS. Men'S Leather Dress Belt Maker ID - DBLACTIC ACID, [id number] 05:41:00 Test Item Value Reference Range Interpretation Comments LACTATE BLOOD VENOUS 0.99 mmol/L 0.50-2.20 Specime n slightly (2) (BEAKER) (test hemolyzed code = 2872) Men'S Leather Dress Belt Maker ID - DBPOCT-GLUCOSE [id number] 00:16:00 Test Item Value Reference Range Interpretation Comments POC-GLUCOSE METER 104 mg/dL 70-110 : TESTED A T [facility] 6720 (BEAKER) (test code = RADHA [place], 1538) [address]: Men'S Leather Dress Belt Maker/Techni homer ID = [id number] for GISSELL HUMPHREY LACTIC ACID, [id number] 18:07:00 Test Item Value Reference Range Interpretation Comments LACTATE BLOOD VENOUS 1.23 mmol/L 0.50-2.20 Specime n slightly (2) (BEAKER) (test hemolyzed code = 2872) Men'S Leather Dress Belt Maker ID - NTPPOCT-GLUCOSE [id number] 17:51:00 Test Item Value Reference Range Interpretation Comments POC-GLUCOSE METER 98 mg/dL 70-110 : [facility] (BE[facility]ER[facility] (test code = RADHA [place], 1538) [address]: Men'S Leather Dress Belt Maker/Techni homer ID = [id number] for COLBY NELSON URINALYSIS W/ REFLEX URINE [id number] 17:19:00 Test Item Value Reference Range Interpretation [...] RBC UA (BEAKER) (test code = 519) 23822 /HPF WBC UA (BEAKER) (test code = 520) 8314 /HPF SOURCE(BEAKER) (test code = 2795) Men'S Leather Dress Belt Maker ID - [auto]Men'S Leather Dress Belt Maker ID - techRAD, CHEST, 1 VIEW, NON [id number] 12:40:00Reason for exam:->bilateral cracklesShould this be performed at the bedside?->YesFINAL REPORT RAD, CHEST, 1 VIEW, NON DEPT INDICATION: bilateral crackles COMPARISON: None. FINDINGS: Portable frontal view of the chest. IMPRESSION: Support Lines: None. Lungsand pleura: Linear subsegmental atelectasis versus scarring at the left base. Right lung is clear.. No pneumothorax.Heart and mediastinum: Unremarkable contours.Additional findings: None. Signed: JR Eddy, Heriberto Arana Verified Date/Time: 01/03/2020 12:40:06 [facility] B-TYPE NATRIURETIC FACTOR (BNP)2020-01-03 12:02:00 Test Item Value Reference Range Interpretation Comments B-TYPE NATRIURETIC PEPTIDE (BEAKER) 127 pg/mL 0-100 H (test code = 700) Men'S Leather Dress Belt Maker ID - NTPLACTIC ACID, [id number] 11:48:00 Test Item Value Reference Range Interpretation Comments LACTATE BLOOD VENOUS 2.69 mmol/L 0.50-2.20 H Specime n slightly (2) (BEAKER) (test hemolyzed code = 2872) Men'S Leather Dress Belt Maker ID - NTPLACTIC ACID, [id number] 09:24:00 Test Item Value Reference Range Interpretation Comments LACTATE BLOOD VENOUS 7.71 mmol/L 0.50-2.20 HH Specime n slightly (2) (BEAKER) (test hemolyzed code = 2872) Men'S Leather Dress Belt Maker ID - NTPPOCT-CALCIUM [id number] 09:04:00 Test Item Value Reference Range Interpretation Comments POC-CALCIUM IONIZED 1.20 mmol/L 1.12-1.27 : TESTED AT [facility] ([facility]) (test code = [address] 15[address]) [place], [address]: Men'S Leather Dress Belt Maker/Techni homer ID = [id number] for YOHANNES ESQUIVEL [id number] 09:04:00 Test Item Value Reference Range Interpretation Comments POC-GLUCOSE (AKER) 144 mg/dL 70-110 H : TESTE D AT [facility] 6720 (test code = 1855) [place], [address]: Men'S Leather Dress Belt Maker/Techni homer ID = [id number] for YOHANNES ESQUIVEL POCT-BLOOD GASES, [id number] 09:03:00 Test Item Value Reference Range Interpretation Comments TEMP, CELSIUS-POC ([facility]) (test code = 1834) FIO2-POC ([facility]) (test code = 1835) PH, ARTERIAL-POC 7.298 7.350-7.450 L (BEAKER) (test code = 1836) PCO2, ARTERIAL-POC 33.3 mm Hg 35.0-45.0 L (BEAKER) (test code = 1837) PO2, ARTERIAL-POC 82.0 mm Hg 80.0-90.0 (BEAKER) (test code = 1838) SO2, ARTERIAL-POC 95.0 % 96.0-97.0 L (BEAKER) (test code = 1839) HCO3, ARTERIAL-POC 16.3 meq/L 21.0-29.0 L (BEAKER) (test code = 1840) BASE EXCESS, -10.0 meq/L -2.0-3.0 L : TESTED AT [facility] 67 ARTERIAL-POC [facility], (BEAKER) (test code [address]: = 1841) Men'S Leather Dress Belt Maker/Techni homer ID = [id number] for YOHANNES AHUMADA [id number] 09:03:00 Test Item Value Reference Range Interpretation Comments POC-SODIUM (BEAKER) 141 meq/L 135-148 : TESTED AT [place] [address] (test code = 1542) [place] [facility], [address]: Men'S Leather Dress Belt Maker/Techni homer ID = [id number] for YOHANNES ESQUIVEL [id number] 09:03:00 Test Item Value Reference Range Interpretation Comments POC-POTASSIUM 4.2 meq/L 3.6-5.5 : TESTED AT [place] [address] ([facility]) (test code [facility], = 1540) [address]: Men'S Leather Dress Belt Maker/Techni homer ID = [id number] for YOHANNES ESQUIVEL [id number] 09:03:00 Test Item Value Reference Range Interpretation Comments POC-HEMOGLOBIN 13.6 g/dL 13.0-16.8 : TESTED AT [place] [address] ([facility]) (test code [facility], = 1856) [address]: Men'S Leather Dress Belt Maker/Techni homer ID = [id number] for YOHANNES ESQUIVEL [id number] 09:03:00 Test Item Value Reference Range Interpretation Comments POC-HEMATOCRIT 40 % 40-50 : Men'S Leather Dress Belt Maker/Te chiragian ID = ([facility]) (test code = 757907 for YOHANNES ESQUIVEL 1857) BASIC METABOLIC [id number] 05:52:00 Test Item Value Reference Range Interpretation [...] S NOT APPLICABLE FOR DIALYSIS PATIEN TS. Men'S Leather Dress Belt Maker ID - LUI [id number] 05:47:00 Test Item Value Reference Range Interpretation [...] mechanical heart valves.CBC W/PLT COUNT & AUTO [id number] 05:38:00 Test Item Value Reference Range Interpretation [...] code = 2801) URINALYSIS W/ REFLEX URINE [id number] 05:29:00 Test Item Value Reference Range Interpretation [...] 1574) Rare SOURCE(BEAKER) (test code = 2795) Men'S Leather Dress Belt Maker ID - [auto]Men'S Leather Dress Belt Maker ID - techTISSUE [id number] 09:02:00Surgical Pathology Report Case: [id number] Authorizing Provider: Nimesh Herring MD Collected: 11/16/2019 1627 Ordering Location: [facility] Endoscopy Received: 11/17/2019 0806 Services Pathologist: Vini [...] IS NEGATIVE. Signing Pathologist Direct Phone Line: [phone] signed by Vini Singh MD on 11/21/2019 at 9:02 [id number], [id number] diagnosis: Epigastric abdominal pain A. Gastric biopsy; [...] evaluated Immunohistochemistry technical testing was performed at [facility], Pathology Laboratory where it was developed [...] qualified to perform high complexity clinical laboratory testing.[facility], Department of Pathology, [address] [place] [address], [facility], [address] [place] [address], [facility], [facility] of [facility],[address] [place] [address], FU Fluoroscopy in Imaging per [id number] 15:26:54Patient: CAS RDORIGUEZ Date/Time06/22/2018 13:30 CDTReason for ExamsurgeryReportLocation R 16Exam: [...] (Electronic Signature): 06/22/2018 3:26 pmNEEDLE EMG, 2 [id number] 16:14:00INTRAOPERATIVE MONITORING REPORT Patient Name: Cas Rodriguez [facility] Surgery Date: 01/15/18 [place] Pro: [id number] Monitoring began at 11:40 a.m and ended [...] Milan M.D., FACNS, FAAN, FAESG89.4, M54.16 [place], NUCLEAR REACTOR ENGINEER IN OR/30 MINUTE INCREMENTS 2018-01-15 14:19:00Reason for [...] Alfaro Verified Date/Time: 01/15/2018 14:19:13 Reading Location: [address] Consult Reading Room HIV-1 ANTIGEN WITH HIV-1/2 ANTIBODY 2018-01-11 09:49:00 Test Item Value Reference Range Interpretation Comments HIV-1 ANTIGEN WITH HIV 1\\T\\2 Nonreactive Nonreactive ANTIBODY (2) (MARÍA) (test code = 2586) [id number] 09:32:00 Test Item Value Reference Range Interpretation Comments GLUCOSE RANDOM (BEAKER) (test code 126 mg/dL 70-105 H = 652) BASIC METABOLIC [id number] 09:32:00 Test Item Value Reference Range Interpretation [...] NOT APPLICABLE FOR DIALYSIS PATIEN TS. PROTHROMBIN [id number] 09:29:00 Test Item Value Reference Range Interpretation [...] % 0-1 PERCENT (BEAKER) (test code = 7801)
--- NOTE | 2020-02-07 13:05 | EDPHYS ---
Physician Documentation [facility] Name: Cas Denny Age: 74 yrs Sex: Male : 1945 Arrival Date: 02/07/2020 Time: 11:30 Bed 14 Private MD: Sanatna Bernstein R ED Physician Juan Hinkle HPI: 02/06 12:36 This 74 yrs old Male presents to ER via Wheelchair with complaints of pm1 Breathing Difficulty. 12:36 The patient has shortness of breath at rest. pm1 12:36 Onset: The symptoms/episode began/occurred 2 month(s) ago. Duration: The symptoms are pm1 continuous, and are unchanged since they started. The patient's shortness of breath has no apparent modifying factors. Associated signs and symptoms: The patient has no apparent associated signs or symptoms, Pertinent negatives: chest pain, non-productive cough, productive cough, diaphoresis, dizziness, fever. Severity of symptoms: in the emergency department the symptoms are unchanged Pain is currently a 0 / 10. The patient has been recently seen at the [facility] Emergency Department, today, same complaint and written a prescription for oxygen by Dr. Gamez. Patient reports that the medical supply store would not provide him the home oxygen. He wants to stay in the hospital until he gets his home oxygen . Historical: - Allergies: 11:39 adhesive tape-silicones; ph - Home Meds: 11:53 kameron boost-vitamin [Active]; allopurinol 300 mg Oral tab 1 tab three times a day ph [Active]; amlodipine 5 mg tab 1 tab once daily [Active]; atorvastatin 20 mg Oral tab 1 tab once daily [Active]; fentanyl 100 mcg/hr Topical pt72 1 patch every 72 hours [Active]; gabapentin 300 mg Oral cap [Active]; megestrol 20 mg Oral tab 1 tab [Active]; metoprolol succinate 25 mg Oral Tb24 1 tab once daily [Active]; [place] 10-325 mg Oral tab 1 tab as needed [Active]; phenazopyridine 200 mg Oral tab 1 tab twice a day [Active]; Protonix 40 mg Oral TbEC 1 tab once daily [Active]; Reglan 10 mg Oral tab 1 tab once daily [Active]; Stool Softener Oral [Active]; sucralfate Oral [Active]; sucralfate 1 gram Oral tab 1 tab three times a day [Active]; - PMHx: 11:39 "bad esophagus"; Back pain; CAD; chronic back pain; GERD; Hypertension; Kidney stones; ph Prostate Cancer; lung cancer; - PSHx: 11:39 Appendectomy; Cholecystectomy; Prostatectomy; neck surgery; ph - Immunization history:: Adult Immunizations unknown. - Social history:: Smoking status: Patient denies any tobacco usage or history of. ROS: 12:36 Constitutional: Negative for fever, chills, and weight loss, Neck: Negative for injury, pm1 pain, and swelling, Cardiovascular: Negative for chest pain, palpitations, and edema. 12:36 Abdomen/GI: Negative for abdominal pain, nausea, vomiting, diarrhea, and constipation, Back: Negative for injury and pain, MS/Extremity: Negative for injury and deformity, Skin: Negative for injury, rash, and discoloration, Neuro: Negative for headache, weakness, numbness, tingling, and seizure. 12:36 Respiratory: Positive for shortness of breath, Negative for cough, sputum production, wheezing. Exam: 12:36 Constitutional: This is a well developed, well nourished patient who is awake, alert, pm1 and in no acute distress. Head/Face: Normocephalic, atraumatic. Chest/axilla: Normal chest wall appearance and motion. Nontender with no deformity. No lesions are appreciated. Cardiovascular: Regular rate and rhythm with a normal S1 and S2. No gallops, murmurs, or rubs. Normal PMI, no JVD. No pulse deficits. Respiratory: Lungs have equal breath sounds bilaterally, clear to auscultation and percussion. No rales, rhonchi or wheezes noted. No increased work of breathing, no retractions or nasal flaring. Back: No spinal tenderness. No costovertebral tenderness. Full range of motion. Skin: Warm, dry with normal turgor. Normal color with no rashes, no lesions, and no evidence of cellulitis. MS/ Extremity: Pulses equal, no cyanosis. Neurovascular intact. Full, normal range of motion. 12:36 Neuro: Exam negative for acute changes, Orientation: is normal, Mentation: is normal, Motor: is normal, moves all fours, Sensation: is normal, no obvious gross deficits. Vital Signs: 11:35 BP 121 / 83; Pulse 78; Resp 18; Temp 98.3(TE); Pulse Ox 98% on R/A; Weight 76.66 kg; ph Height 5 ft. 8 in. (172.72 cm); 12:15 BP 138 / 71; Pulse 70; Resp 18; Pulse Ox 97% ; bp 13:19 BP 126 / 64; Pulse 66; Resp 16; Temp 98.5; Pulse Ox 97% ; bp 11:35 Body Mass Index 25.70 (76.66 kg, 172.72 cm) ph MDM: 11:43 Patient medically screened. pm1 12:50 Special discussion: I discussed with the patient/guardian in detail that at this point pm1 there is no indication for admission to the hospital. It is understood, however, that if the symptoms persist or worsen the patient needs to return immediately for re-evaluation. 12:57 Physician consultation: Santana Bernstein MD was contacted at 12:57, regarding patient's pm1 condition, outpatient follow-up, for home oxygen prescription. 13:01 Data reviewed: vital signs. Data interpreted: Pulse oximetry: on room air is 97 %. pm1 Interpretation: normal. 13:01 Counseling: I had a detailed discussion with the patient and/or guardian regarding: the pm1 historical points, exam findings, and any diagnostic results supporting the discharge/admit diagnosis, the need for outpatient follow up, PCP for home oxygen prescription , to return to the emergency department if symptoms worsen or persist or if there are any questions or concerns that arise at home. Administered Medications: No medications were administered Disposition: 19:39 Co-signature as Attending Physician, Juan Hinkle MD. mh7 Disposition: 02/07/20 13:05 Discharged to Home. Impression: Shortness of breath, Lung cancer. - Condition is Stable. - Discharge Instructions: Shortness of Breath, Oxygen Use at Home, Lung Cancer. - Medication Reconciliation Form, Thank You Letter, Antibiotic Education, Prescription Opioid Use form. - Follow up: Emergency Department; When: As needed; Reason: Worsening of condition. Follow up: Santana Bernstein MD; When: Today; Reason: Recheck today's complaints, Continuance of care, Re-evaluation by your physician. - Problem is new. - Symptoms have improved. Signatures: Anu Mcgregor RN RN ph Ran Vieyra, THANIA MANAGER ROOM pm1 Aravind Vasques RN RN bp Juan Hinkle MD MD mh7 Corrections: (The following items were deleted from the chart) 13:21 13:05 02/07/2020 13:05 Discharged to Home. Impression: Shortness of breath; Lung bp cancer. Condition is Stable. Forms are Medication Reconciliation Form, Thank You Letter, Antibiotic Education, Prescription Opioid Use. Follow up: Emergency Department; When: As needed; Reason: Worsening of condition. Follow up: Santana Bernstein; When: Today; Reason: Recheck today's complaints, Continuance of care, Re-evaluation by your physician. Problem is new. Symptoms have improved. pm1
--- NOTE | 2020-02-07 13:05 | ER ---
Nurse's Notes [facility] Name: Cas Denny Age: 74 yrs Sex: Male : 1945 Arrival Date: 02/07/2020 Time: 11:30 Bed 14 Private MD: Santana Bernstein R Diagnosis: Shortness of breath;Lung cancer Presentation: 02/06 11:35 Chief complaint: Patient states: " I was here this morning for the same thing, I guess ph y'all are just going to have to keep me until my Dr can set up home oxygen." Pt reports SOB, SpO2 96% in triage, recently dx w/ lung cancer. Coronavirus screen: Patient denies a cough. Patient reports shortness of breath or difficulty breathing. Patient denies measured and/or subjective temperature greater than 100.4F prior to today's visit. Patient denies travel on a cruise ship or to a country the [facility] currently lists as an affected area. Patient denies contact with known and/or suspected case of COVID-19. Ebola Screen: No symptoms or risks identified at this time. Initial Sepsis Screen: Does the patient meet any 2 criteria? No. Patient's initial sepsis screen is negative. Does the patient have a suspected source of infection? No. Patient's initial sepsis screen is negative. Risk Assessment: Do you want to hurt yourself or someone else? Patient reports no desire to harm self or others. Onset of symptoms was February 07, 2020. 11:35 Method Of Arrival: Wheelchair ph 11:35 Acuity: MIRZA 3 ph Triage Assessment: 11:50 General: Appears in no apparent distress. comfortable, Behavior is cooperative, bp appropriate for age, anxious. Pain: Denies pain. EENT: No deficits noted. Neuro: No deficits noted. Cardiovascular: Rhythm is sinus rhythm. Respiratory: Reports shortness of breath Airway is patent Respiratory effort is even, unlabored, Respiratory pattern is regular, symmetrical, Breath sounds are coarse bilaterally. Onset: The symptoms/episode began/occurred at an unknown time. the patient has mild shortness of breath. GI: No signs and/or symptoms were reported involving the gastrointestinal system. : No signs and/or symptoms were reported regarding the genitourinary system. Derm: No deficits noted. Musculoskeletal: No deficits noted. Historical: - Allergies: 11:39 adhesive tape-silicones; ph - Home Meds: 11:53 kameron boost-vitamin [Active]; allopurinol 300 mg Oral tab 1 tab three times a day ph [Active]; amlodipine 5 mg tab 1 tab once daily [Active]; atorvastatin 20 mg Oral tab 1 tab once daily [Active]; fentanyl 100 mcg/hr Topical pt72 1 patch every 72 hours [Active]; gabapentin 300 mg Oral cap [Active]; megestrol 20 mg Oral tab 1 tab [Active]; metoprolol succinate 25 mg Oral Tb24 1 tab once daily [Active]; [place] 10-325 mg Oral tab 1 tab as needed [Active]; phenazopyridine 200 mg Oral tab 1 tab twice a day [Active]; Protonix 40 mg Oral TbEC 1 tab once daily [Active]; Reglan 10 mg Oral tab 1 tab once daily [Active]; Stool Softener Oral [Active]; sucralfate Oral [Active]; sucralfate 1 gram Oral tab 1 tab three times a day [Active]; - PMHx: 11:39 "bad esophagus"; Back pain; CAD; chronic back pain; GERD; Hypertension; Kidney stones; ph Prostate Cancer; lung cancer; - PSHx: 11:39 Appendectomy; Cholecystectomy; Prostatectomy; neck surgery; ph - Immunization history:: Adult Immunizations unknown. - Social history:: Smoking status: Patient denies any tobacco usage or history of. Screenin:50 Abuse screen: Denies threats or abuse. Denies injuries from another. Nutritional bp screening: No deficits noted. Tuberculosis screening: No symptoms or risk factors identified. Fall Risk None identified. Assessment: 11:50 General: SEE TRIAGE NOTE. bp 11:50 Cardiovascular: Rhythm is sinus rhythm. bp 13:19 Reassessment: PT D/C HOME VIA W/C, DX WITH SOB. bp Vital Signs: 11:35 BP 121 / 83; Pulse 78; Resp 18; Temp 98.3(TE); Pulse Ox 98% on R/A; Weight 76.66 kg; ph Height 5 ft. 8 in. (172.72 cm); 12:15 BP 138 / 71; Pulse 70; Resp 18; Pulse Ox 97% ; bp 13:19 BP 126 / 64; Pulse 66; Resp 16; Temp 98.5; Pulse Ox 97% ; bp 11:35 Body Mass Index 25.70 (76.66 kg, 172.72 cm) ph ED Course: 11:30 Patient arrived in ED. mr 11:30 Santana Bernstein MD is Private Physician. mr 11:37 Triage completed. ph 11:39 Arm band placed on Patient placed in an exam room. ph 11:40 Aravind Vasques, JENNIFER is Primary Nurse. bp 11:41 Ran Vieyra NP is PHCP. pm1 11:41 Juan Hinkle MD is Attending Physician. pm1 11:50 Patient has correct armband on for positive identification. Bed in low position. Call bp light in reach. Side rails up X2. 13:04 Santana Bernstein MD is Referral Physician. pm1 13:19 No provider procedures requiring assistance completed. Patient did not have IV access bp during this emergency room visit. Administered Medications: No medications were administered Outcome: 13:05 Discharge ordered by MD. pm1 13:21 Discharged to home via wheelchair. bp 13:21 Condition: stable 13:21 Discharge instructions given to patient, Instructed on discharge instructions, follow up and referral plans. Demonstrated understanding of instructions, follow-up care. 13:21 Patient left the ED. bp Signatures: Nida Oseguera mr Anu Mcgregor RN RN ph Ran Vieyra NP [employer] pm1 Aravind Vasques RN RN bp
[2020-02-07 13:29] VITALS: O2SAT 97
[2020-02-07 13:31] VITALS: BP 126/64; TEMP 98.5
== END 2020-02-07 13:21 | disposition home or self-care (01) ==
LOC: ER 11:27
DX: C78.02 Secondary malignant neoplasm of left lung (principal); Z85.46 Personal history of malignant neoplasm of prostate
CPT/HCPCS: 99284

== ENCOUNTER 2021-08-06 16:33 | Emergency (ER) | payer OTHER, BC ==
[2012-03-24 13:41] VITALS: BP 149/66
--- OUTSIDE RECORDS SUMMARY | 2021-08-06 16:46 | XMS REPORT | Continuity of Care Document ---
:[address] [facility] t Address [address] [place] [address] [address]. [address] [place] [address] Care Team Providers Name Role Phone JAMES STONER Primary Care Physician Unavailable SANIA GILBERT Attending Clinician Unavailable TERRI Attending Clinician Unavailable KOKI WAGNER Attending Clinician Unavailable BEN OCASIO Attending Clinician Unavailable FRANCOISE Attending Clinician Unavailable BEN OCASIO Attending Clinician Unavailable KEN Attending Clinician Unavailable BILLY Attending Clinician Unavailable Jessie Bowser MD Attending Clinician MD Keenan HERRING Attending Clinician Unavailable TERRI Attending Clinician Unavailable Francoise WELCH Attending Clinician Ben Ocasio MD Attending Clinician VLADIMIR Attending Clinician Unavailable Koki Wagner MD Attending Clinician Vladimir WELCH Attending Clinician СЕРГЕЙ HORTON Attending Clinician Unavailable JUAN MUÑOZ Attending Clinician Unavailable SASHA HUGGINS Attending Clinician Unavailable SANIA GILBERT Admitting Clinician Unavailable TERRI Admitting Clinician Unavailable KOKI WAGNER Admitting Clinician Unavailable BEN OCASIO Admitting Clinician Unavailable MD Keenan HERRING Admitting Clinician Unavailable JUAN MUÑOZ Admitting Clinician Unavailable Payers Payer Name Policy Type Policy Number Effective Date Expiration Date S oswaldo MEDICARE A B [id number] 1998 00:00:00 [facility] [id number] 2014 OS 00:00:00 CDC REVIEW [id number] 2020 00:00:00 ZZCDCREVIEW [id number] 2019 2019 00:00:00 00:00:00 MEDICARE PART A \\T\\ [id number] 2008 B - MEDICARE 00:00:00 MEDICARE SUPPLEMENT [id number] 2014 - BCBS 00:00:00 COVID19 HRSA [id number] 2020 00:00:00 GENERIC PPO - [id number] 2020 GENERIC PAYOR 00:00:00 Problems Condition Condition Condition Status Onset Resolution Last Treating Co mments Source Name Details Category Date Date Treatment Clinician Date Hiatal Hiatal Disease Active [facility] hernia hernia 915 [employer] with GERD with GERD 00:00: of 00 Medicin e Back pain Back pain Disease Active [facility] [employer] 00:00: of 00 Medicin e COPD COPD Disease Active [facility] (chronic (chronic 03-05 Colleg e obstructiv obstructiv 00:00: of e e 00 Medicin pulmonary pulmonary e disease) disease) (HCCode) (HCCode) SOB SOB Disease Active [facility] (shortness (shortness 29 Co l[facility] of breath) of breath) 00:00: of 00 Medicin e Prostate Prostate Disease Active [facility] cancer cancer 02-16 [facility] (HCCode) (HCCode) 00:00: t & Plan: of 00 Prostatec Medicin amador in 1999 at [facility]. 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 00:00: of 00 Medicin e Hyperlipid Problem Active 2019-04-22 M emoria emia 11:57:54 l (disorder) [place] n Hyperlipid emia (disorder) Active Problem 04/22/2019 [facility] Hypertensi Problem Active 2019-04-22 M emoria ve 11:57:54 l disorder, [place] systemic Hypertensi arterial ve (disorder) disorder, systemic arterial (disorder) Active Problem 04/22/2019 [facility] Myoclonus Problem Active 2019-04-22 Me moria (finding) 11:57:54 l Matthias Myoclonus (finding) Active Problem 04/22/2019 [facility] Restless Problem Active 2019-04-22 Mem oria legs 11:57:54 l (disorder) Restless He rmann legs (disorder) Active Problem 04/22/2019 [facility] Allergies, Adverse Reactions, Alerts Allergy Allergy Status Severity Reaction(s) Onset Inactive Treating Comm ents Source Name Type Date Date Clinician Tylenol Propensi Active Other (See Unknown [facility] Allergy ty to Comments) 03-02 [facility] Complete adverse 00:00: of reaction 00 Medicin s to e drug Adhesive Propensi Active Other (See Patient [facility] Tape ty to Comments) 01-18 can only Colle ge adverse 00:00: use paper of reaction 00 tape Medicin s to e substanc e Latex Propensi Active Other (See BLISTERS [facility] ty to Comments) 01-08 College adverse 00:00: of reaction 00 Medicin s to e substanc e ADHESIVE Allergy Active Other [facility] TAPE 5- 00:00: 00 LATEX Allergy Active Other [facility] 5-04 00:00: 00 NO KNOWN Allergy Active [facility] Social History Social Habit Start Date Stop Date Quantity Comments Source Exposure to Not sure [facility] doretha SARS-CoV-2 (event) of Med icine History [facility] Alcohol Frequency of Medi cine History [facility] Alcohol Std Drinks of Med icine History [facility] Alcohol Binge of Medicine Alcohol intake 2021-07-25 2021-07-25 Ex-drinker [facility] lege 00:00:00 00:00:00 (finding) of Medicine Tobacco Comment 2020-02-13 2020-02-13 stopped 2018 [facility] 00:00:00 00:00:00 of Medicine Cigarettes smoked 2020-01-19 2020-01-19 [facility] current (pack per 00:00:00 00:00:00 of Medi cine day) - Reported Cigarette 2020-01-19 2020-01-19 [facility] pack-years 00:00:00 00:00:00 of Medicine Tobacco use and 2020-01-19 2020-01-19 Smokeless tobacco [facility] exposure 00:00:00 00:00:00 non-user of Medicine Alcohol Comment 2020-01-19 2020-01-19 hasn't had drink [facility] 00:00:00 00:00:00 in 45 years of Medicine History of tobacco 2018-09-07 Cigarette Smoker [facility] use 00:00:00 of Medicine Sex [birth year] [facility] Co llege 00:00:00 00:00:00 of Medicine Smoking Status Start Date Stop Date Source Social History 2018-06-02 13:59:37 2018-06-02 13:59:37 [facility] Medications Ordered Filled Start Stop Current Ordering Indication Dosage Frequency Signature Comments Components Source Medication Medication Date Date Medication? Clinician (SIG) Name Name amlodipine 2020-09 Yes 10mg Take 10 mg [facility] (NORVASC) 1-18 by mouth Colleg e 10 MG 13:06: daily. of tablet 41 Medicin e atorvastati 2020-09 Yes 20mg Take 20 mg [facility] n (LIPITOR) 1-18 by mouth [facility] 20 MG 13:06: daily. of tablet 41 Medicin e fentanyl 2020-09 Yes 1{patch Place 1 [facility] (DURAGESIC) -18 } Patch onto Co llege 100 MCG/HR 13:06: the skin of patch 41 every 3 Medicin days. e megestrol 2020-09 Yes 20mg Take 20 mg [facility] (MEGACE) 20 -18 by mouth [facility] MG tablet 13:06: every 72 of 41 hours. Medicin e Magnesium 2020- No 400mg Take 400 [facility] Oxide 250 9-16 09-16 mg by College MG TABS 11:35: 00:00 mouth. of 48 :00 Medicin e Magnesium 2020- No 400mg Take 400 [facility] Oxide 250 9-16 09-16 mg by College MG TABS 11:35: 00:00 mouth. of 48 :00 Medicin e Magnesium 2020- No 1{tbl} Take 1 Tab [facility] 250 MG TABS -16 -16 by mouth Col lege 11:35: 00:00 daily. of 46 :00 Medicin e Magnesium 2020-0 2020- No 1{tbl} Take 1 Tab [facility] 250 MG TABS 05-2316 by mouth Col lege 11:35: 00:00 daily. of 46 :00 Medicin e amlodipine 0 Yes 10mg Take 10 mg [facility] (NORVASC) 9-16 by mouth Colleg e 10 MG 11:28: daily. of tablet 56 Medicin e atorvastati Yes 20mg Take 20 mg [facility] n (LIPITOR) 9-16 by mouth [facility] 20 MG 11:28: daily. of tablet 56 Medicin e fentanyl Yes 1{patch Place 1 [facility] (DURAGESIC) 916 } Patch onto Co llege 100 MCG/HR 11:28: the skin of patch 56 every 3 Medicin days. e megestrol Yes 20mg Take 20 mg [facility] (MEGACE) 20 9-16 by mouth [facility] MG tablet 11:28: every 72 of 56 hours. Medicin e amlodipine Yes 10mg Take 10 mg [facility] (NORVASC) 9-16 by mouth Colleg e 10 MG 11:28: daily. of tablet 56 Medicin e atorvastati Yes 20mg Take 20 mg [facility] n (LIPITOR) 9-16 by mouth [facility] 20 MG 11:28: daily. of tablet 56 Medicin e fentanyl Yes 1{patch Place 1 [facility] (DURAGESIC) 16 } Patch onto Co llege 100 MCG/HR 11:28: the skin of patch 56 every 3 Medicin days. e megestrol Yes 20mg Take 20 mg [facility] (MEGACE) 20 9-16 by mouth [facility] MG tablet 11:28: every 72 of 56 hours. Medicin e TRELEGY Yes [id number] 1{puff} 1 Puff [facility] ELLIPTA -16 daily. [facility] .01-29 00:00: of MCG/INH 00 Medicin AEPB e TRELEGY Yes [id number] 1{puff} 1 Puff [facility] ELLIPTA -16 daily. [facility] .5-25 00:00: of MCG/INH 00 Medicin AEPB e TRELEGY 0 Yes [id number] 1{puff} 1 Puff B r[facility]le ELLIPTA 9-16 daily. College 100-62.5-25 00:00: of MCG/INH 00 Medicin AEPB e HYDROmorpho 0 Yes TAKE ONE Noble vázquez ne 05-08 (1) [facility] (DILAUDID) 00:00: TABLET(S) of 4 MG tablet 00 BY MOUTH Medi kiran EVERY SIX e HOURS NEEDED FOR PAIN. HYDROmorpho 0 Yes TAKE ONE Noble vázquez ne 05-08 (1) [facility] (DILAUDID) 00:00: TABLET(S) of 4 MG tablet 00 BY MOUTH Medi kiran EVERY SIX e HOURS NEEDED FOR PAIN. HYDROmorpho 0 2020- No TAKE ONE B rachelle ne 05-08 11-18 (1) [facility] (DILAUDID) 00:00: 00:00 TABLET(S) o f 4 MG tablet 00 :00 BY MOUTH Medi kiran EVERY SIX e HOURS NEEDED FOR PAIN. oxybutynin 0 Yes [id number] 10mg Take 1 [facility] (DITROPAN-X 8-31 Tablet by Col lege L) 10 MG CR 00:00: mouth of tablet 00 daily. Medicin e oxybutynin 0 Yes [id number] 10mg Take 1 [facility] (DITROPAN-X 8-31 Tablet by Col lege L) 10 MG CR 00:00: mouth of tablet 00 daily. Medicin e oxybutynin 2020-0 Yes [id number] 10mg Take 1 [facility] (DITROPAN-X 8-31 Tablet by Col lege L) 10 MG CR 00:00: mouth of tablet 00 daily. Medicin e oxybutynin 2020-0 Yes [id number] 10mg Take 1 [facility] (DITROPAN-X 8-31 Tablet by Col lege L) 10 MG CR 00:00: mouth of tablet 00 daily. Medicin e fentanyl Yes APPLY 1 [facility] (DURAGESIC) 8-16 PATCH [facility] 25 MCG/HR 00:00: EVERY 72 of patch 00 HOURS FOR Medicin CANCER e PAIN EFD 04/22/21 fentanyl 2020-0 Yes APPLY 1 [facility] (DURAGESIC) 8-16 PATCH College 25 MCG/HR 00:00: EVERY 72 of patch 00 HOURS FOR Medicin CANCER e PAIN EFD 04/22/21 fentanyl Yes APPLY 1 [facility] (DURAGESIC) 8-16 PATCH College 25 MCG/HR 00:00: EVERY 72 of patch 00 HOURS FOR Medicin CANCER e PAIN EFD 04/22/21 TRELEGY 2020- No [facility] ELLIPTA 04-17 [facility] 10062.5-25 00:00: 00:00 of MCG/INH 00 :00 Medicin AEPB e TRELEGY 2020- No [facility] ELLIPTA -05-23 [facility] 100-62.5-25 00:00: 00:00 of MCG/INH 00 :00 Medicin AEPB e amlodipine Yes 10mg Take 10 mg [facility] (NORVASC) 6-25 by mouth Colleg e 10 MG 10:17: daily. of tablet 28 Medicin e atorvastati Yes 20mg Take 20 mg [facility] n (LIPITOR) 6-25 by mouth [facility] 20 MG 10:17: daily. of tablet 28 Medicin e fentanyl Yes 1{patch Place 1 [facility] (DURAGESIC) 6-25 } Patch onto Co llege 100 MCG/HR 10:17: the skin of patch 28 every 3 Medicin days. e megestrol Yes 20mg Take 20 mg [facility] (MEGACE) 20 6-25 by mouth [facility] MG tablet 10:17: every 72 of 28 hours. Medicin e Magnesium Yes 1{tbl} Take 1 Tab [facility] 250 MG TABS 6-25 by mouth [facility] 10:17: daily. of 28 Medicin e Magnesium Yes 400mg Take 400 [facility] Oxide 250 6-25 mg by College MG TABS 10:17: mouth. of 28 Medicin e clidinium-c Yes 1{capsu Take 1 [facility] hlordiazepo 6-25 le} capsule by Co llege xide 10:17: mouth two of (LIBRAX) 28 times Medicin 5-2.5 MG daily. e per capsule amlodipine 2021-0 Yes 10mg Take 10 mg [facility] (NORVASC) 6-25 by mouth Colleg e 10 MG 10:17: daily. of tablet 28 Medicin e atorvastati Yes 20mg Take 20 mg [facility] n (LIPITOR) 6-25 by mouth [facility] 20 MG 10:17: daily. of tablet 28 Medicin e fentanyl Yes 1{patch Place 1 [facility] (DURAGESIC) 6-25 } Patch onto Co llege 100 MCG/HR 10:17: the skin of patch 28 every 3 Medicin days. e megestrol Yes 20mg Take 20 mg [facility] (MEGACE) 20 6-25 by mouth [facility] MG tablet 10:17: every 72 of 28 hours. Medicin e Magnesium Yes 1{tbl} Take 1 Tab [facility] 250 MG TABS 6-25 by mouth [facility] 10:17: daily. of 28 Medicin e Magnesium Yes 400mg Take 400 [facility] Oxide 250 6-25 mg by College MG TABS 10:17: mouth. of 28 Medicin e clidinium-c Yes 1{capsu Take 1 [facility] hlordiazepo 6-25 le} capsule by Co llege xide 10:17: mouth two of (LIBRAX) 28 times Medicin 5-2.5 MG daily. e per capsule amlodipine Yes 10mg Take 10 mg [facility] (NORVASC) 5-17 by mouth Colleg e 10 MG 13:21: daily. of tablet 15 Medicin e atorvastati Yes 20mg Take 20 mg [facility] n (LIPITOR) 5-17 by mouth [facility] 20 MG 13:21: daily. of tablet 15 Medicin e fentanyl Yes 1{patch Place 1 [facility] (DURAGESIC) 5-17 } Patch onto Co llege 100 MCG/HR 13:21: the skin of patch 15 every 3 Medicin days. e megestrol Yes 20mg Take 20 mg [facility] (MEGACE) 20 5-17 by mouth [facility] MG tablet 13:21: every 72 of 15 hours. Medicin e Magnesium Yes 1{tbl} Take 1 Tab [facility] 250 MG TABS 5-17 by mouth [facility] 13:21: daily. of 15 Medicin e Magnesium Yes 400mg Take 400 [facility] Oxide 250 5-17 mg by College MG TABS 13:21: mouth. of 15 Medicin e clidinium-c Yes 1{capsu Take 1 [facility] hlordiazepo 5-17 le} capsule by Co llege xide 13:21: mouth two of (LIBRAX) 15 times Medicin 5-2.5 MG daily. e per capsule amoxicillin 2020- No 1{tbl} Take 1 [facility] -clavulanat 4-19 05-17 Tablet by Co llege e 00:00: 00:00 mouth two of (AUGMENTIN) 00 :00 times Medicin 875-125 MG daily. e per tablet amlodipine Yes 10mg Take 10 mg [facility] (NORVASC) 4-12 by mouth Colleg e 10 MG 19:35: daily. of tablet 17 Medicin e atorvastati Yes 20mg Take 20 mg [facility] n (LIPITOR) 4-12 by mouth [facility] 20 MG 19:35: daily. of tablet 17 Medicin e fentanyl Yes 1{patch Place 1 [facility] (DURAGESIC) 4-12 } Patch onto Co llege 100 MCG/HR 19:35: the skin of patch 17 every 3 Medicin days. e megestrol Yes 20mg Take 20 mg [facility] (MEGACE) 20 4-12 by mouth [facility] MG tablet 19:35: every 72 of 17 hours. Medicin e Magnesium Yes 1{tbl} Take 1 Tab [facility] 250 MG TABS 4-12 by mouth [facility] 19:35: daily. of 17 Medicin e Magnesium Yes 400mg Take 400 [facility] Oxide 250 4-12 mg by College MG TABS 19:35: mouth. of 17 Medicin e clidinium-c Yes 1{capsu Take 1 [facility] hlordiazepo 4-12 le} capsule by Co llege xide 19:35: mouth two of (LIBRAX) 17 times Medicin 5-2.5 MG daily. e per capsule azithromyci Yes [id number] 2 po [facility] n 4- today, [facility] (ZITHROMAX) 00:00: then 1 po o f 250 MG 00 QD x 4days Medicin tablet e azithromyci 2020- No [id number] 2 po [facility] n - 05-17 [facility] (ZITHROMAX) 00:00: 00:00 then 1 po of 250 MG 00 :00 QD x 4days Medicin tablet e Potassium Yes TAKE 1 [facility] Citrate 10 4-05 TABLET BY [facility] MEQ (1080 00:00: MOUTH of MG) TBCR 00 TWICE A Medicin DAY e Potassium Yes TAKE 1 [facility] Citrate 10 4-05 TABLET BY [facility] MEQ (1080 00:00: MOUTH of MG) TBCR 00 TWICE A Medicin DAY e Potassium Yes TAKE 1 [facility] Citrate 10 4-05 TABLET BY [facility] MEQ (1080 00:00: MOUTH of MG) TBCR 00 TWICE A Medicin DAY e Potassium Yes TAKE 1 [facility] Citrate 10 4-05 TABLET BY [facility] MEQ (1080 00:00: MOUTH of MG) TBCR 00 TWICE A Medicin DAY e Potassium Yes TAKE 1 [facility] Citrate 10 4-05 TABLET BY [facility] MEQ (1080 00:00: MOUTH of MG) TBCR 00 TWICE A Medicin DAY e Potassium Yes TAKE 1 [facility] Citrate 10 4-05 TABLET BY [facility] MEQ (1080 00:00: MOUTH of MG) TBCR 00 TWICE A Medicin DAY e Potassium Yes TAKE 1 [facility] Citrate 10 4-05 TABLET BY [facility] MEQ (1080 00:00: MOUTH of MG) TBCR 00 TWICE A Medicin DAY e clidinium-c Yes 1{capsu Take 1 [facility] hlordiazepo 3-11 le} capsule by Co percy canchola 21:05: mouth two of (LIBRAX) 09 times Medicin 5-2.5 MG daily. e per capsule amlodipine Yes 10mg Take 10 mg [facility] (NORVASC) 3-11 by mouth Colleg e 10 MG 21:02: daily. of tablet 03 Medicin e atorvastati Yes 20mg Take 20 mg [facility] n (LIPITOR) 3-11 by mouth [facility] 20 MG 21:02: daily. of tablet Medicin e fentanyl Yes 1{patch Place 1 [facility] (DURAGESIC) 3-11 } Patch onto Co llege 100 MCG/HR 21:02: the skin of patch 03 every 3 Medicin days. e megestrol Yes 20mg Take 20 mg [facility] (MEGACE) 20 3-11 by mouth [facility] MG tablet 21:02: every 72 of 03 hours. Medicin e Magnesium Yes 1{tbl} Take 1 Tab [facility] 250 MG TABS 3-11 by mouth [facility] 21:02: daily. of Medicin e Magnesium Yes 400mg Take 400 [facility] Oxide 250 3-11 mg by College MG TABS 21:02: mouth. of Medicin e TRELEGY 202- No [id number] Inhale 1 [facility] ELLIPTA 3-11 04-11 Inhalation Colle [facility] 100-62.5-25 00:00: 04:59 s by mouth of MCG/INH 00 :00 daily for Medicin AEPB 30 days. e omeprazole Yes 1{capsu Take 1 [facility] (PRILOSEC) 2-20 le} capsule by Col lege 40 MG 00:00: mouth two of capsule 00 times Medicin daily. e omeprazole Yes 1{capsu Take 1 [facility] (PRILOSEC) 2-20 le} capsule by Col lege 40 MG 00:00: mouth two of capsule 00 times Medicin daily. e omeprazole Yes 1{capsu Take 1 [facility] (PRILOSEC) 2-20 le} capsule by Col lege 40 MG 00:00: mouth two of capsule 00 times Medicin daily. e omeprazole Yes 1{capsu Take 1 [facility] (PRILOSEC) 2-20 le} capsule by Col lege 40 MG 00:00: mouth two of capsule 00 times Medicin daily. e omeprazole Yes 1{capsu Take 1 [facility] (PRILOSEC) 2-20 le} capsule by Col lege 40 MG 00:00: mouth two of capsule 00 times Medicin daily. e omeprazole Yes 1{capsu Take 1 [facility] (PRILOSEC) 2-20 le} capsule by Col lege 40 MG 00:00: mouth two of capsule 00 times Medicin daily. e omeprazole Yes 1{capsu Take 1 [facility] (PRILOSEC) 2-20 le} capsule by Col lege 40 MG 00:00: mouth two of capsule 00 times Medicin daily. e omeprazole Yes 1{capsu Take 1 [facility] (PRILOSEC) 2-20 le} capsule by Col lege 40 MG 00:00: mouth two of capsule 00 times Medicin daily. e amlodipine Yes 10mg Take 10 mg [facility] (NORVASC) 2-10 by mouth Colleg e 10 MG 16:42: daily. of tablet 28 Medicin e atorvastati Yes 20mg Take 20 mg [facility] n (LIPITOR) 2-10 by mouth [facility] 20 MG 16:42: daily. of tablet 28 Medicin e fentanyl Yes 1{patch Place 1 [facility] (DURAGESIC) 2-10 } Patch onto Co llege 100 MCG/HR 16:42: the skin of patch 28 every 3 Medicin days. e megestrol Yes 20mg Take 20 mg [facility] (MEGACE) 20 2-10 by mouth [facility] MG tablet 16:42: every 72 of 28 hours. Medicin e Magnesium Yes 1{tbl} Take 1 Tab [facility] 250 MG TABS 2-10 by mouth [facility] 16:42: daily. of 28 Medicin e Magnesium Yes 400mg Take 400 [facility] Oxide 250 2-10 mg by College MG TABS 16:42: mouth. of 28 Medicin e amlodipine Yes 10mg Take 10 mg [facility] (NORVASC) 2-10 by mouth Colleg e 10 MG 16:42: daily. of tablet 28 Medicin e atorvastati Yes 20mg Take 20 mg [facility] n (LIPITOR) 2-10 by mouth [facility] 20 MG 16:42: daily. of tablet 28 Medicin e fentanyl Yes 1{patch Place 1 [facility] (DURAGESIC) 2-10 } Patch onto Co llege 100 MCG/HR 16:42: the skin of patch 28 every 3 Medicin days. e megestrol 0 Yes 20mg Take 20 mg [facility] (MEGACE) 20 2-10 by mouth [facility] MG tablet 16:42: every 72 of 28 hours. Medicin e Magnesium 0 Yes 1{tbl} Take 1 Tab [facility] 250 MG TABS 2-10 by mouth [facility] 16:42: daily. of 28 Medicin e Magnesium 0 Yes 400mg Take 400 [facility] Oxide 250 2-10 mg by College MG TABS 16:42: mouth. of 28 Medicin e amlodipine Yes 10mg Take 10 mg [facility] (NORVASC) 1-15 by mouth Colleg e 10 MG 19:42: daily. of tablet 16 Medicin e atorvastati Yes 20mg Take 20 mg [facility] n (LIPITOR) 1-15 by mouth [facility] 20 MG 19:42: daily. of tablet 16 Medicin e fentanyl Yes 1{patch Place 1 [facility] (DURAGESIC) 1-15 } Patch onto Co llege 100 MCG/HR 19:42: the skin of patch 16 every 3 Medicin days. e megestrol Yes 20mg Take 20 mg [facility] (MEGACE) 20 1-15 by mouth [facility] MG tablet 19:42: every 72 of 16 hours. Medicin e Magnesium Yes 1{tbl} Take 1 Tab [facility] 250 MG TABS 1-15 by mouth [facility] 19:42: daily. of 16 Medicin e Magnesium 0 Yes 400mg Take 400 [facility] Oxide 250 1-15 mg by College MG TABS 19:42: mouth. of 16 Medicin e Mirabegron 0 Yes [id number] 50mg Take 50 mg [facility] ER 1-15 by mouth College (MYRBETRIQ) 00:00: daily. of 50 MG TB24 00 Medicin e Mirabegron 0 Yes [id number] 50mg Take 50 mg [facility] ER 1-15 by mouth College (MYRBETRIQ) 00:00: daily. of 50 MG TB24 00 Medicin e Mirabegron Yes [id number] 50mg Take 50 mg [facility] ER 1-15 by mouth [facility] (MYRBETRIQ) 00:00: daily. of 50 MG TB24 Medicin e Mirabegron Yes [id number] 50mg Take 50 mg [facility] ER 1-15 by mouth [facility] (MYRBETRIQ) 00:00: daily. of 50 MG TB24 Medicin e Mirabegron 2020- No [id number] 50mg Take 50 mg [facility] ER 1-15 05-17 by mouth [facility] (MYRBETRIQ) 00:00: 00:00 daily. of 50 MG TB24 00 :00 Medicin e Magnesium 2019-09 Yes 400mg Take 400 [facility] Oxide 250 2-07 mg by College MG TABS 19:43: mouth. of 07 Medicin e amlodipine 2019-09 Yes 10mg Take 10 mg [facility] (NORVASC) 2-07 by mouth Colleg e 10 MG 19:42: daily. of tablet 36 Medicin e atorvastati 2019-09 Yes 20mg Take 20 mg [facility] n (LIPITOR) 2-07 by mouth [facility] 20 MG 19:42: daily. of tablet 36 Medicin e fentanyl 2019-09 Yes 1{patch Place 1 [facility] (DURAGESIC) 2-07 } Patch onto Co llege 100 MCG/HR 19:42: the skin of patch 36 every 3 Medicin days. e megestrol 2019-09 Yes 20mg Take 20 mg [facility] (MEGACE) 20 2-07 by mouth [facility] MG tablet 19:42: every 72 of 36 hours. Medicin e Magnesium 2019-09 Yes 1{tbl} Take 1 Tab [facility] 250 MG TABS 2-07 by mouth [facility] 19:42: daily. of 36 Medicin e amlodipine 2019-09 Yes 10mg Take 10 mg [facility] (NORVASC) 1-30 by mouth Colleg [facility] 10 MG 19:08: daily. of tablet 06 Medicin e atorvastati 2019-09 Yes 20mg Take 20 mg [facility] n (LIPITOR) 1-30 by mouth [facility] 20 MG 19:08: daily. of tablet 06 Medicin e fentanyl 2019-09 Yes 1{patch Place 1 [facility] (DURAGESIC) 1-30 } Patch onto Co llege 100 MCG/HR 19:08: the skin of patch 06 every 3 Medicin days. e megestrol 2019-09 Yes 20mg Take 20 mg [facility] (MEGACE) 20 1-30 by mouth [facility] MG tablet 19:08: every 72 of 06 hours. Medicin e Magnesium 2019-09 Yes 1{tbl} Take 1 Tab [facility] 250 MG TABS 1-30 by mouth [facility] 19:08: daily. of 06 Medicin e amlodipine 2019-09 Yes 10mg Take 10 mg [facility] (NORVASC) 1-30 by mouth Colleg e 10 MG 19:08: daily. of tablet 06 Medicin e atorvastati 2019-09 Yes 20mg Take 20 mg [facility] n (LIPITOR) 1-30 by mouth [facility] 20 MG 19:08: daily. of tablet 06 Medicin e fentanyl 2019-09 Yes 1{patch Place 1 [facility] (DURAGESIC) 1-30 } Patch onto Co llege 100 MCG/HR 19:08: the skin of patch 06 every 3 Medicin days. e megestrol 2019-09 Yes 20mg Take 20 mg [facility] (MEGACE) 20 1-30 by mouth [facility] MG tablet 19:08: every 72 of 06 hours. Medicin e Magnesium 2019-09 Yes 1{tbl} Take 1 Tab [facility] 250 MG TABS 1-30 by mouth [facility] 19:08: daily. of Medicin e amlodipine 2019-09 Yes 10mg Take 10 mg [facility] (NORVASC) 0-12 by mouth Colleg [facility] 10 MG 13:12: daily. of tablet 36 Medicin e atorvastati 2019-09 Yes 20mg Take 20 mg [facility] n (LIPITOR) 0-12 by mouth [facility] 20 MG 13:12: daily. of tablet 36 Medicin e fentanyl 2019-09 Yes 1{patch Place 1 [facility] (DURAGESIC) 0-12 } Patch onto Co llege 100 MCG/HR 13:12: the skin of patch 36 every 3 Medicin days. e megestrol 2019-09 Yes 20mg Take 20 mg [facility] (MEGACE) 20 0-12 by mouth [facility] MG tablet 13:12: every 72 of 36 hours. Medicin e Magnesium 2019-09 Yes 1{tbl} Take 1 Tab [facility] 250 MG TABS 0-12 by mouth [facility] 13:12: daily. of 36 Medicin e amlodipine 2019-09 Yes 10mg Take 10 mg [facility] (NORVASC) 0-09 by mouth Colleg [facility] 10 MG 14:04: daily. of tablet 05 Medicin e atorvastati 2019-09 Yes 20mg Take 20 mg [facility] n (LIPITOR) 0-09 by mouth [facility] 20 MG 14:04: daily. of tablet 05 Medicin e fentanyl 2019-09 Yes 1{patch Place 1 [facility] (DURAGESIC) 0-09 } Patch onto Co llege 100 MCG/HR 14:04: the skin of patch 05 every 3 Medicin days. e megestrol 2019-09 Yes 20mg Take 20 mg [facility] (MEGACE) 20 0-09 by mouth [facility] MG tablet 14:04: every 72 of 05 hours. Medicin e Magnesium 2019-09 Yes 1{tbl} Take 1 Tab [facility] 250 MG TABS 0-09 by mouth [facility] 14:04: daily. of 05 Medicin e amlodipine 2019-09 Yes 10mg Take 10 mg [facility] (NORVASC) 0-05 by mouth [facility] 10 MG 18:48: daily. of tablet 05 Medicin e atorvastati 2019-09 Yes 20mg Take 20 mg [facility] n (LIPITOR) 0-05 by mouth [facility] 20 MG 18:48: daily. of tablet 05 Medicin e fentanyl 2019-09 Yes 1{patch Place 1 [facility] (DURAGESIC) 0-05 } Patch onto [facility] 100 MCG/HR 18:48: the skin of patch 05 every 3 Medicin days. e megestrol 2019-09 Yes 20mg Take 20 mg [facility] (MEGACE) 20 0-05 by mouth [facility] MG tablet 18:48: every 72 of 05 hours. Medicin e Magnesium 2019-09 Yes 1{tbl} Take 1 Tab [facility] 250 MG TABS 0-05 by mouth [facility] 18:48: daily. of 05 Medicin e Potassium 2019-09 Yes 1{tbl} Take 1 Tab [facility] Citrate 10 0-05 by mouth [facility] MEQ (1080 00:00: two times of MG) TBCR 00 daily. Medicin e Potassium 2019-09 Yes 1{tbl} Take 1 Tab [facility] Citrate 10 0-05 by mouth [facility] MEQ (1080 00:00: two times of MG) TBCR 00 daily. Medicin e Potassium 2020- Yes 1{tbl} Take 1 Tab [facility] Citrate 10 0-05 by mouth [facility] MEQ (1080 00:00: two times of MG) TBCR 00 daily. Medicin e Potassium 2020- Yes 1{tbl} Take 1 Tab [facility] Citrate 10 0-05 by mouth [facility] MEQ (1080 00:00: two times of MG) TBCR 00 daily. Medicin e Potassium 2020- Yes 1{tbl} Take 1 Tab [facility] Citrate 10 0-05 by mouth [facility] MEQ (1080 00:00: two times of MG) TBCR 00 daily. Medicin e Potassium 2019- Yes 1{tbl} Take 1 Tab [facility] Citrate 10 0-05 by mouth [facility] MEQ (1080 00:00: two times of MG) TBCR 00 daily. Medicin e Potassium 2019- Yes 1{tbl} Take 1 Tab [facility] Citrate 10 0-05 by mouth [facility] MEQ (1080 00:00: two times of MG) TBCR 00 daily. Medicin e Potassium 2020- Yes 1{tbl} Take 1 Tab [facility] Citrate 10 0-05 by mouth [facility] MEQ (1080 00:00: two times of MG) TBCR 00 daily. Medicin e Potassium 2020- Yes 1{tbl} Take 1 Tab [facility] Citrate 10 0-05 by mouth [facility] MEQ (1080 00:00: two times of MG) TBCR 00 daily. Medicin e Potassium 2019- Yes 1{tbl} Take 1 Tab [facility] Citrate 10 0-05 by mouth [facility] MEQ (1080 00:00: two times of MG) TBCR 00 daily. Medicin e promethazin 2020-0 Yes TAKE 1 [facility] 9-18 TABLET BY [facility] (PHENERGAN) 00:00: MOUTH of 25 MG 00 TWICE A Medicin tablet DAY e NEEDED promethazin 2020-0 Yes TAKE 1 [facility] 9-18 TABLET BY [facility] (PHENERGAN) 00:00: MOUTH of 25 MG 00 TWICE A Medicin tablet DAY e NEEDED promethazin 2020-0 Yes TAKE 1 [facility] 9-18 TABLET BY [facility] (PHENERGAN) 00:00: MOUTH of 25 MG 00 TWICE A Medicin tablet DAY e NEEDED promethazin 2020-0 Yes TAKE 1 [facility] TABLET [facility] (PHENERGAN) 00:00: MOUTH of 25 MG 00 TWICE A Medicin tablet DAY e NEEDED promethazin 2020-0 Yes TAKE 1 [facility] 9-[facility] TABLET BY [facility] (PHENERGAN) 00:00: MOUTH of 25 MG 00 TWICE A Medicin tablet DAY e NEEDED promethazin 2020-0 Yes TAKE 1 [facility] 9-[facility] TABLET BY [facility] (PHENERGAN) 00:00: MOUTH of 25 MG 00 TWICE A Medicin tablet DAY e NEEDED promethazin 2020-0 Yes TAKE 1 [facility] 9-[facility] TABLET BY [facility] (PHENERGAN) 00:00: MOUTH of 25 MG 00 TWICE A Medicin tablet DAY e NEEDED promethazin 2020-0 Yes TAKE 1 [facility] 9-[facility] TABLET BY [facility] (PHENERGAN) 00:00: MOUTH of 25 MG 00 TWICE A Medicin tablet DAY e NEEDED promethazin 2020-0 Yes TAKE 1 [facility] 9-18 TABLET BY [facility] (PHENERGAN) 00:00: MOUTH of 25 MG 00 TWICE A Medicin tablet DAY e NEEDED promethazin 2020-0 Yes TAKE 1 [facility] 9-18 TABLET BY [facility] (PHENERGAN) 00:00: MOUTH of 25 MG 00 TWICE A Medicin tablet DAY e NEEDED promethazin 2020-0 Yes TAKE 1 [facility] 9-18 TABLET BY [facility] (PHENERGAN) 00:00: MOUTH of 25 MG 00 TWICE A Medicin tablet DAY e NEEDED promethazin 2020-0 Yes TAKE 1 [facility] 9-18 TABLET BY [facility] (PHENERGAN) 00:00: MOUTH of 25 MG 00 TWICE A Medicin tablet DAY e NEEDED promethazin 2020-0 Yes TAKE 1 [facility] 9-18 TABLET BY [facility] (PHENERGAN) 00:00: MOUTH of 25 MG 00 TWICE A Medicin tablet DAY e NEEDED promethazin 2020-0 Yes TAKE 1 [facility] 9-18 TABLET BY [facility] (PHENERGAN) 00:00: MOUTH of 25 MG 00 TWICE A Medicin tablet DAY e NEEDED promethazin 2020-0 Yes TAKE 1 [facility] 9-18 TABLET BY [facility] (PHENERGAN) 00:00: MOUTH of 25 MG 00 TWICE A Medicin tablet DAY e NEEDED promethazin 2020-0 Yes TAKE 1 [facility] 9-18 TABLET BY [facility] (PHENERGAN) 00:00: MOUTH of 25 MG 00 TWICE A Medicin tablet DAY e NEEDED promethazin 2020-0 Yes TAKE 1 [facility] 9-18 TABLET BY [facility] (PHENERGAN) 00:00: MOUTH of 25 MG 00 TWICE A Medicin tablet DAY e NEEDED metoclopram 2020-0 Yes 10mg Take 10 mg [facility] 8- by mouth [facility] (REGLAN) 10 20:08: daily. of MG tablet 17 Medicin e sucralfate 2020-0 Yes 1g Take 1 g [facility] (CARAFATE) 05-07 by mouth 3 [facility] 1 g tablet 20:08: times of 17 daily. Medicin e amlodipine 2020-0 Yes 10mg Take 10 mg [facility] (NORVASC) 05-07 by mouth [facility] 10 MG 20:01: daily. of tablet 10 Medicin e atorvastati 2020-0 Yes 20mg Take 20 mg [facility] (LIPITOR) 05-07 by mouth [facility] 20 MG 20:01: daily. of tablet 10 Medicin e fentanyl 2020-0 Yes 1{patch Place 1 [facility] (DURAGESIC) 05-07 } Patch onto [facility] 100 MCG/HR 20:01: the skin of patch 10 every 3 Medicin days. e megestrol 2020-0 Yes 20mg Take 20 mg [facility] (MEGACE) 20 05-07 by mouth [facility] MG tablet 20:01: every 72 of 10 hours. Medicin e Magnesium 2020-0 Yes 1{tbl} Take 1 Tab [facility] 250 MG TABS 05-07 by mouth [facility] 20:01: daily. of 10 Medicin e TRELEGY 2020-0 Yes [facility] ELLIPTA 8-20 [facility] 100-62.5-25 00:00: of MCG/INH 00 Medicin AEPB e TRELEGY 2020-0 Yes daily. [facility] ELLIPTA 8-20 [facility] 100-62.5-25 00:00: of MCG/INH 00 Medicin AEPB e TRELEGY 2020-0 Yes daily. [facility] ELLIPTA 8-20 [facility] 100-62.5-25 00:00: of MCG/INH 00 Medicin AEPB e TRELEGY 2020-[address] [facility] 8-20 [place] [address].5-25 00:00: of MCG/INH 00 Medicin AEPB e TRELEGY 2020-[address] [facility] 8-20 [place] [address].5-25 00:00: of MCG/INH 00 Medicin AEPB e TRELEGY 2020-[address] [facility] 8-20 [place] [address].5-25 00:00: of MCG/INH 00 Medicin AEPB e TRELEGY 2020-[address] [facility] [address] [place] [address].5-25 00:00: of MCG/INH 00 Medicin AEPB e TRELEGY 2020-0 Yes daily. [address] [place] [address].5- 00:00: of MCG/INH 00 Medicin AEPB e TRELEGY 2020-0 Yes daily. [address]5-25 00:00: of MCG/INH 00 Medicin AEPB e TRELEGY 2020-[address] [facility] [address] [place] [address].5-25 00:00: of MCG/INH 00 Medicin AEPB e TRELEGY 2020-0 2020- No daily. [facility] 8-20 03-11 [place] [address].5-25 00:00: 00:00 of MCG/INH 00 :00 Medicin AEPB e amlodipine 2020-0 Yes 10mg Take 10 mg [facility] (NORVASC) 7-24 by mouth [facility] 10 MG 14:39: daily. of tablet 23 Medicin e atorvastati 2020-0 Yes 20mg Take 20 mg [facility] n (LIPITOR) 7-24 by mouth [facility] 20 MG 14:39: daily. of tablet 23 Medicin e fentanyl 2020-0 Yes 1{patch Place 1 [facility] (DURAGESIC) 7-24 } Patch onto [facility] 100 MCG/HR 14:39: the skin of patch 23 every 3 Medicin days. e megestrol 2020-0 Yes 20mg Take 20 mg [facility] (MEGACE) 20 7-24 by mouth [facility] MG tablet 14:39: every 72 of 23 hours. Medicin e metoclopram 2020-0 Yes 10mg Take 10 mg [facility] raymundo 7-24 by mouth [facility] (REGLAN) 10 14:39: daily. of MG tablet 23 Medicin e sucralfate 2020-0 Yes 1g Take 1 g [facility] (CARAFATE) 7-24 by mouth 3 [facility] 1 g tablet 14:39: times of 23 daily. Medicin e Magnesium 2020-0 Yes 1{tbl} Take 1 Tab [facility] 250 MG TABS 7-24 by mouth [facility] 14:39: daily. of 23 Medicin e amlodipine 2020-0 Yes 10mg Take 10 mg [facility] (NORVASC) 6-29 by mouth [facility] 10 MG 15:56: daily. of tablet 57 Medicin e atorvastati 2020-0 Yes 20mg Take 20 mg [facility] n (LIPITOR) 6-29 by mouth [facility] 20 MG 15:56: daily. of tablet 57 Medicin e fentanyl 2020-0 Yes 1{patch Place 1 [facility] (DURAGESIC) 6-29 } Patch onto [facility] 100 MCG/HR 15:56: the skin of patch 57 every 3 Medicin days. e megestrol 2020-0 Yes 20mg Take 20 mg [facility] (MEGACE) 20 6-29 by mouth [facility] MG tablet 15:56: every 72 of 57 hours. Medicin e metoclopram 2020-0 Yes 10mg Take 10 mg [facility] 6-29 by mouth [facility] 10 15:56: daily. of MG tablet 57 Medicin e sucralfate 2020-0 Yes 1g Take 1 g [facility] (CARAFATE) 6-29 by mouth 3 [facility] 1 g tablet 15:56: times of 57 daily. Medicin e Magnesium 2020-0 Yes 1{tbl} Take 1 Tab [facility] 250 MG TABS 6-29 by mouth [facility] 15:56: daily. of 57 Medicin e amlodipine 2020-0 Yes 10mg Take 10 mg [facility] (NORVASC) 6-29 by mouth [facility] 10 MG 13:22: daily. of tablet 22 Medicin e atorvastati 2020-0 Yes 20mg Take 20 mg [facility] n (LIPITOR) 6-29 by mouth [facility] 20 MG 13:22: daily. of tablet 22 Medicin e fentanyl 2020-0 Yes 1{patch Place 1 [facility] (DURAGESIC) 6-29 } Patch onto [facility] 100 MCG/HR 13:22: the skin of patch 22 every 3 Medicin days. e megestrol 2020-0 Yes 20mg Take 20 mg [facility] (MEGACE) 20 6-29 by mouth [facility] MG tablet 13:22: every 72 of 22 hours. Medicin e metoclopram 2020-0 Yes 10mg Take 10 mg [facility] raymundo 6-29 by mouth [facility] (REGLAN) 10 13:22: daily. of MG tablet 22 Medicin e sucralfate 2020-0 Yes 1g Take 1 g [facility] (CARAFATE) 6-29 by mouth 3 [facility] 1 g tablet 13:22: times of 22 daily. Medicin e Magnesium 2020-0 Yes 1{tbl} Take 1 Tab [facility] 250 MG TABS 6-29 by mouth [facility] 13:22: daily. of 22 Medicin e sucralfate 2020-0 Yes 1g Take 1 g [facility] (CARAFATE) 6-18 by mouth 3 [facility] 1 g tablet 18:45: times of 58 daily. Medicin e Magnesium 2020-0 Yes 1{tbl} Take 1 Tab [facility] 250 MG TABS 6-18 by mouth [facility] 18:45: daily. of 58 Medicin e amlodipine- 2020-0 Yes 1{capsu Take 1 Cap [facility] benazepril 6-18 le} by mouth [facility] (LOTREL) 18:45: daily. of 5-10 MG per 57 Medicin capsule e amlodipine 2020-0 Yes 10mg Take 10 mg [facility] (NORVASC) 6-18 by mouth [facility] 10 MG 18:45: daily. of tablet 57 Medicin e atorvastati 2020-0 Yes 20mg Take 20 mg [facility] n (LIPITOR) 6-18 by mouth [facility] 20 MG 18:45: daily. of tablet 57 Medicin e fentanyl 2020-0 Yes 1{patch Place 1 [facility] (DURAGESIC) 6-18 } Patch onto [facility] 100 MCG/HR 18:45: the skin of patch 57 every 72 Medicin hours. e megestrol 2020-0 Yes 20mg Take 20 mg [facility] (MEGACE) 20 6-18 by mouth [facility] MG tablet 18:45: every 72 of 57 hours. Medicin e metoclopram 2020-0 Yes 10mg Take 10 mg [facility] raymundo 6-18 by mouth [facility] (REGLAN) 10 18:45: daily. of MG tablet 57 Medicin e Fluticasone 2020-0 Yes [id number] Inhale 1 [facility] -Umeclidin- 6-18 Inhalation [facility] [place] 00:00: s by mouth of 100-62.5-25 00 daily. Medici n MCG/INH e AEPB albuterol 2020-0 Yes [id number] 180ug Inhale 2 [facility] (PROAIR 6-18 Puffs by [facility]) 108 00:00: mouth of (90 base) 00 every 4 Medicin mcg/act hours as e inhaler needed for Wheezing. albuterol 2020-0 Yes [id number] 180ug Inhale 2 [facility] (PROAIR 6-18 Puffs by [facility]) 108 00:00: mouth of (90 base) 00 every 4 Medicin mcg/act hours as e inhaler needed for Wheezing. albuterol 2020-0 Yes [id number] 180ug Inhale 2 [facility] (PROAIR 6-18 Puffs by [facility]) 108 00:00: mouth of (90 base) 00 every 4 Medicin mcg/act hours as e inhaler needed for Wheezing. albuterol 2020-0 Yes [id number] 180ug Inhale 2 [facility] (PROAIR 6-18 Puffs by [facility]) 108 00:00: mouth of (90 base) 00 every 4 Medicin mcg/act hours as e inhaler needed for Wheezing. albuterol 2020-0 Yes [id number] 180ug Inhale 2 [facility] (PROAIR 6-18 Puffs by [facility]) 108 00:00: mouth of (90 base) 00 every 4 Medicin mcg/act hours as e inhaler needed for Wheezing. albuterol 2020-0 Yes [id number] 180ug Inhale 2 [facility] (PROAIR 6-18 Puffs by [facility]) 108 00:00: mouth of (90 base) 00 every 4 Medicin mcg/act hours as e inhaler needed for Wheezing. albuterol 2020-0 Yes [id number] 180ug Inhale 2 [facility] (PROAIR 6-18 Puffs by [facility]) 108 00:00: mouth of (90 base) 00 every 4 Medicin mcg/act hours as e inhaler needed for Wheezing. albuterol 2020-0 Yes [id number] 180ug Inhale 2 [facility] ([facility] 00:00: mouth of (90 base) 00 every 4 Medicin mcg/act hours as e inhaler needed for Wheezing. albuterol 2020-0 Yes [id number] 180ug Inhale 2 [facility] (PROAIR 6-18 Puffs by [facility]) 108 00:00: mouth of (90 base) 00 every 4 Medicin mcg/act hours as e inhaler needed for Wheezing. albuterol 2020-0 Yes [id number] 180ug Inhale 2 [facility] (PROAIR 6-18 Puffs by [facility]) 108 00:00: mouth of (90 base) 00 every 4 Medicin mcg/act hours as e inhaler needed for Wheezing. albuterol 2020-0 Yes [id number] 180ug Inhale 2 [facility] (PROAIR 6-18 Puffs by [facility]) 108 00:00: mouth of (90 base) 00 every 4 Medicin mcg/act hours as e inhaler needed for Wheezing. albuterol 2020-0 Yes [id number] 180ug Inhale 2 [facility] (PROAIR 6-18 Puffs by [facility]) 108 00:00: mouth of (90 base) 00 every 4 Medicin mcg/act hours as e inhaler needed for Wheezing. albuterol 2020-0 Yes [id number] 180ug Inhale 2 [facility] (PROAIR 6-18 Puffs by [facility]) 108 00:00: mouth of (90 base) 00 every 4 Medicin mcg/act hours as e inhaler needed for Wheezing. albuterol 2020-0 Yes [id number] 180ug Inhale 2 [facility] (PROAIR 6-18 Puffs by [facility]) 108 00:00: mouth of (90 base) 00 every 4 Medicin mcg/act hours as e inhaler needed for Wheezing. albuterol 2020-0 Yes [id number] 180ug Inhale 2 [facility] (PROAIR 6-18 Puffs by [facility]) 108 00:00: mouth of (90 base) 00 every 4 Medicin mcg/act hours as e inhaler needed for Wheezing. albuterol 2020-0 Yes [id number] 180ug Inhale 2 [facility] (PROAIR 6-18 Puffs by [facility]) 108 00:00: mouth of (90 base) 00 every 4 Medicin mcg/act hours as e inhaler needed for Wheezing. albuterol 2020-0 Yes [id number] 180ug Inhale 2 [facility] (PROAIR 6-18 Puffs by [facility]) 108 00:00: mouth of (90 base) 00 every 4 Medicin mcg/act hours as e inhaler needed for Wheezing. albuterol 2020-0 Yes [id number] 180ug Inhale 2 [facility] (PROAIR 6-18 Puffs by [facility]) 108 00:00: mouth of (90 base) 00 every 4 Medicin mcg/act hours as e inhaler needed for Wheezing. albuterol 2020-0 Yes [id number] 180ug Inhale 2 [facility] (PROAIR 6-18 Puffs by [facility]) 108 00:00: mouth of (90 base) 00 every 4 Medicin mcg/act hours as e inhaler needed for Wheezing. albuterol 2020-0 Yes [id number] 180ug Inhale 2 [facility] (PROAIR 6-18 Puffs by [facility]) 108 00:00: mouth of (90 base) 00 every 4 Medicin mcg/act hours as e inhaler needed for Wheezing. albuterol 2020-0 Yes [id number] 180ug Inhale 2 [facility] (PROAIR 6-18 Puffs by [facility]) 108 00:00: mouth of (90 base) 00 every 4 Medicin mcg/act hours as e inhaler needed for Wheezing. albuterol 2020-0 Yes [id number] 180ug Inhale 2 [facility] (PROAIR 6-18 Puffs by [facility]) 108 00:00: mouth of (90 base) 00 every 4 Medicin mcg/act hours as e inhaler needed for Wheezing. amlodipine- 2020-0 Yes 1{capsu Take 1 Cap [facility] benazepril 6-08 le} by mouth [facility] (LOTREL) 18:55: daily. of 5-10 MG per 28 Medicin capsule e amlodipine 2020-0 Yes 10mg Take 10 mg [facility] (NORVASC) 6-08 by mouth [facility] 10 MG 18:55: daily. of tablet 28 Medicin e atorvastati 2020-0 Yes 20mg Take 20 mg [facility] n (LIPITOR) 6-08 by mouth [facility] 20 MG 18:55: daily. of tablet 28 Medicin e fentanyl 2020-0 Yes 1{patch Place 1 [facility] (DURAGESIC) 6-08 } Patch onto [facility] 100 MCG/HR 18:55: the skin of patch 28 every 72 Medicin hours. e megestrol 2020-0 Yes 20mg Take 20 mg [facility] (MEGACE) 20 6-08 by mouth [facility] MG tablet 18:55: every 72 of 28 hours. Medicin e metoclopram 2020-0 Yes 10mg Take 10 mg [facility] ray[facility]undo 6-08 by mouth [facility] (REGLAN) 10 18:55: daily. of MG tablet 28 Medicin e sucralfate 2020-0 Yes 1g Take 1 g [facility] (CARAFATE) 6-08 by mouth 3 [facility] 1 g tablet 18:55: times of 28 daily. Medicin e Magnesium 2020-0 Yes 1{tbl} Take 1 Tab [facility] 250 MG TABS 6-08 by mouth [facility] 18:55: daily. of 28 Medicin e Tamsulosin 2020-0 Yes TAKE 1 [facility] HCl 0.4 MG 6-05 CAPSULE BY [facility] CAPS 00:00: MOUTH of 00 EVERY DAY Medicin e Tamsulosin 2020-0 Yes TAKE 1 [facility] HCl 0.4 MG 6-05 CAPSULE BY [facility] CAPS 00:00: MOUTH of 00 EVERY DAY Medicin e azithromyci 2020-0 Yes 250mg Take 1 Tab [facility] n 5-27 by [facility] (ZITHROMAX) 00:00: daily. of 250 MG 00 Take 2 Medicin tablet tabs on e day 1, then 1 tab on days 2-7 azithromyci 2020-0 Yes 250mg Take 1 Tab [facility] n 5-27 by [facility] (ZITHROMAX) 00:00: daily. of 250 MG 00 Take 2 Medicin tablet tabs on e day 1, then 1 tab on days 2-7 sucralfate 2020-0 Yes 1g Take 1 g [facility] (CARAFATE) 5-14 by mouth 3 [facility] 1 g tablet 19:02: times of 27 daily. Medicin e Magnesium 2020-0 Yes 1{tbl} Take 1 Tab [facility] 250 MG TABS 5-14 by mouth [facility] 19:02: daily. of 27 Medicin e amlodipine- 2020-0 Yes 1{capsu Take 1 Cap [facility] benazepril 5-14 le} by mouth [facility] (LOTREL) 19:02: daily. of 5-10 MG per 27 Medicin capsule e amlodipine 2020-0 Yes 10mg Take 10 mg [facility] (NORVASC) 5-14 by mouth [facility] 10 MG 19:02: daily. of tablet 27 Medicin e atorvastati 2020-0 Yes 20mg Take 20 mg [facility] n (LIPITOR) 5-14 by mouth [facility] 20 MG 19:02: daily. of tablet 27 Medicin e fentanyl 2020-0 Yes 1{patch Place 1 [facility] (DURAGESIC) 5-14 } Patch onto [facility] 100 MCG/HR 19:02: the skin of patch 27 every 72 Medicin hours. e megestrol 2020-0 Yes 20mg Take 20 mg [facility] (MEGACE) 20 5-14 by mouth [facility] MG tablet 19:02: every 72 of 27 hours. Medicin e metoclopram 2020-0 Yes 10mg Take 10 mg [facility] raymundo 5-14 by mouth [facility] (REGLAN) 10 19:02: daily. of MG tablet 27 Medicin e Fluticasone 2020-0 Yes Inhale 1 [facility] Furoate-Missy 5-14 Inhalation [facility]ol 00:00: s by nose of 100-25 00 daily. Medicin MCG/INH e AEPB Fluticasone 2020-0 2020- No Inhale 1 [facility] Furoate-Missy 5-14 06-18 Inhalation [facility] anterol 00:00: 00:00 s by nose of 100-25 00 :00 daily. Medicin MCG/INH e AEPB phenazopyri 2020-0 Yes 1{tbl} Take 1 Tab [facility] dine 5-09 by mouth College (PYRIDIUM) 00:00: two times of 200 MG 00 daily. Medicin tablet e phenazopyri 2020-0 Yes 1{tbl} Take 1 Tab [facility] dine 5-09 by mouth [facility] (PYRIDIUM) 00:00: two times of 200 MG 00 daily. Medicin tablet e phenazopyri 2020-0 Yes 1{tbl} Take 1 Tab [facility] dine 5-09 by mouth [facility] (PYRIDIUM) 00:00: two times of 200 MG 00 daily. Medicin tablet e Tamsulosin 2020-0 Yes .4mg Take 0.4 [facility] HCl 0.4 MG 5-08 mg by [facility] CAPS 00:00: mouth of 00 daily. Medicin e docusate 2020-0 2020- No 100mg Take 100 [facility] sodium 5-08 05-19 mg by [facility] (COLACE) 00:00: 04:59 mouth of 100 MG 00 :00 daily. Medicin capsule e allopurinol 2020-0 Yes 1{tbl} Take 1 Tab [facility] (ZYLOPRIM) 4-26 by mouth [facility] 300 MG 00:00: every 3 of tablet 00 days. Medicin e allopurinol 2020-0 Yes 1{tbl} Take 1 Tab [facility] (ZYLOPRIM) 4-26 by mouth [facility] 300 MG 00:00: every 3 of tablet 00 days. Medicin e allopurinol 2020-0 Yes 1{tbl} Take 1 Tab [facility] (ZYLOPRIM) 4-26 by mouth [facility] 300 MG 00:00: every 3 of tablet 00 days. Medicin e allopurinol 2020-0 Yes 1{tbl} Take 1 Tab [facility] (ZYLOPRIM) 4-26 by mouth [facility] 300 MG 00:00: every 3 of tablet 00 days. Medicin e allopurinol 2020-0 Yes 1{tbl} Take 1 Tab [facility] (ZYLOPRIM) 4-26 by mouth [facility] 300 MG 00:00: every 3 of tablet 00 days. Medicin e allopurinol 2020-0 Yes 1{tbl} Take 1 Tab [facility] (ZYLOPRIM) 4-26 by mouth [facility] 300 MG 00:00: every 3 of tablet 00 days. Medicin e allopurinol 2020-0 Yes 1{tbl} Take 1 Tab [facility] (ZYLOPRIM) 4-26 by mouth [facility] 300 MG 00:00: every 3 of tablet 00 days. Medicin e allopurinol 2020-0 Yes 1{tbl} Take 1 Tab [facility] (ZYLOPRIM) 4-26 by mouth [facility] 300 MG 00:00: every 3 of tablet 00 days. Medicin e allopurinol 2020-0 Yes 1{tbl} Take 1 Tab [facility] (ZYLOPRIM) 4-26 by mouth [facility] 300 MG 00:00: every 3 of tablet 00 days. Medicin e allopurinol 2020-0 Yes 1{tbl} Take 1 Tab [facility] (ZYLOPRIM) 4-26 by mouth [facility] 300 MG 00:00: every 3 of tablet 00 days. Medicin e allopurinol 2020-0 Yes 1{tbl} Take 1 Tab [facility] (ZYLOPRIM) 4-26 by mouth [facility] 300 MG 00:00: every 3 of tablet 00 days. Medicin e allopurinol 2020-0 Yes 1{tbl} Take 1 Tab [facility] (ZYLOPRIM) 4-26 by mouth [facility] 300 MG 00:00: every 3 of tablet 00 days. Medicin e allopurinol 2020-0 Yes 1{tbl} Take 1 Tab [facility] (ZYLOPRIM) 4-26 by mouth [facility] 300 MG 00:00: every 3 of tablet 00 days. Medicin e allopurinol 2020-0 Yes 1{tbl} Take 1 Tab [facility] (ZYLOPRIM) 4-26 by mouth [facility] 300 MG 00:00: every 3 of tablet 00 days. Medicin e allopurinol 2020-0 Yes 1{tbl} Take 1 Tab [facility] (ZYLOPRIM) 4-26 by mouth [facility] 300 MG 00:00: every 3 of tablet 00 days. Medicin e allopurinol 2020-0 Yes 1{tbl} Take 1 Tab [facility] (ZYLOPRIM) 4-26 by mouth [facility] 300 MG 00:00: every 3 of tablet 00 days. Medicin e allopurinol 2020-0 Yes 1{tbl} Take 1 Tab [facility] (ZYLOPRIM) 4-26 by mouth [facility] 300 MG 00:00: every 3 of tablet 00 days. Medicin e allopurinol 2020-0 Yes 1{tbl} Take 1 Tab [facility] (ZYLOPRIM) 4-26 by mouth [facility] 300 MG 00:00: every 3 of tablet 00 days. Medicin e allopurinol 2020-0 Yes 1{tbl} Take 1 Tab [facility] (ZYLOPRIM) 4-26 by mouth [facility] 300 MG 00:00: every 3 of tablet 00 days. Medicin e allopurinol 2020-0 Yes 1{tbl} Take 1 Tab [facility] (ZYLOPRIM) 4-26 by mouth [facility] 300 MG 00:00: every 3 of tablet 00 days. Medicin e allopurinol 2020-0 Yes 1{tbl} Take 1 Tab [facility] (ZYLOPRIM) 4-26 by mouth [facility] 300 MG 00:00: every 3 of tablet 00 days. Medicin e allopurinol 2020-0 Yes 1{tbl} Take 1 Tab [facility] (ZYLOPRIM) 4-26 by mouth [facility] 300 MG 00:00: every 3 of tablet 00 days. Medicin e allopurinol 2020-0 Yes 1{tbl} Take 1 Tab [facility] (ZYLOPRIM) 4-26 by mouth [facility] 300 MG 00:00: every 3 of tablet 00 days. Medicin e allopurinol 2020-0 Yes 1{tbl} Take 1 Tab [facility] (ZYLOPRIM) 4-26 by mouth [facility] 300 MG 00:00: every 3 of tablet 00 days. Medicin e gabapentin 2020-0 Yes 1{capsu Take 1 Cap [facility] (NEURONTIN) 4-18 le} by mouth [facility] 300 MG 00:00: daily. of capsule 00 Medicin e gabapentin 2020-0 Yes 1{capsu Take 1 Cap [facility] (NEURONTIN) 4-18 le} by mouth [facility] 300 MG 00:00: daily. of capsule 00 Medicin e gabapentin 2020-0 Yes 1{capsu Take 1 Cap [facility] (NEURONTIN) 4-18 le} by mouth [facility] 300 MG 00:00: daily. of capsule 00 Medicin e gabapentin 2020-0 Yes 1{capsu Take 1 [facility] [facility] ([facility]IN[facility] 4-18 le} by mouth [facility] 300 MG 00:00: daily. of capsule 00 Medicin e gabapentin 2020-0 Yes 1{capsu Take 1 Cap [facility] (NEURONTIN) 4-18 le} by mouth [facility] 300 MG 00:00: daily. of capsule 00 Medicin e gabapentin 2020-0 Yes 1{capsu Take 1 Cap [facility] (NEURONTIN) 4-18 le} by mouth [facility] 300 MG 00:00: daily. of capsule 00 Medicin e gabapentin 2020-0 Yes 1{capsu Take 1 Cap [facility] (NEURONTIN) 4-18 le} by mouth [facility] 300 MG 00:00: daily. of capsule 00 Medicin e gabapentin 2020-0 Yes 1{capsu Take 1 Cap [facility] (NEURONTIN) 4-18 le} by mouth [facility] 300 MG 00:00: daily. of capsule 00 Medicin e gabapentin 2020-0 Yes 1{capsu Take 1 Cap [facility] (NEURONTIN) 4-18 le} by mouth [facility] 300 MG 00:00: daily. of capsule 00 Medicin e gabapentin 2020-0 Yes 1{capsu Take 1 Cap [facility] (NEURONTIN) 4-18 le} by mouth [facility] 300 MG 00:00: daily. of capsule 00 Medicin e gabapentin 2020-0 Yes 1{capsu Take 1 Cap [facility] (NEURONTIN) 4-18 le} by mouth [facility] 300 MG 00:00: daily. of capsule 00 Medicin e gabapentin 2020-0 Yes 1{capsu Take 1 Cap [facility] (NEURONTIN) 4-18 le} by mouth [facility] 300 MG 00:00: daily. of capsule 00 Medicin e gabapentin 2020-0 Yes 1{capsu Take 1 Cap [facility] (NEURONTIN) 4-18 le} by mouth [facility] 300 MG 00:00: daily. of capsule 00 Medicin e gabapentin 2020-0 Yes 1{capsu Take 1 Cap [facility] (NEURONTIN) 4-18 le} by mouth [facility] 300 MG 00:00: daily. of capsule 00 Medicin e gabapentin 2020-0 Yes 1{capsu Take 1 Cap [facility] (NEURONTIN) 4-18 le} by mouth [facility] 300 MG 00:00: daily. of capsule 00 Medicin e gabapentin 2020-0 Yes 1{capsu Take 1 Cap [facility] (NEURONTIN) 4-18 le} by mouth [facility] 300 MG 00:00: daily. of capsule 00 Medicin e gabapentin 2020-0 Yes 1{capsu Take 1 Cap [facility] (NEURONTIN) 4-18 le} by mouth [facility] 300 MG 00:00: daily. of capsule 00 Medicin e gabapentin 2020-0 Yes 1{capsu Take 1 Cap [facility] (NEURONTIN) 4-18 le} by mouth [facility] 300 MG 00:00: daily. of capsule 00 Medicin e gabapentin 2020-0 Yes 1{capsu Take 1 Cap [facility] (NEURONTIN) 4-18 le} by mouth [facility] 300 MG 00:00: daily. of capsule 00 Medicin e gabapentin 2020-0 Yes 1{capsu Take 1 Cap [facility] (NEURONTIN) 4-18 le} by mouth [facility] 300 MG 00:00: daily. of capsule 00 Medicin e gabapentin 2020-0 Yes 1{capsu Take 1 Cap [facility] (NEURONTIN) 4-18 le} by mouth [facility] 300 MG 00:00: daily. of capsule 00 Medicin e gabapentin 2020-0 Yes 1{capsu Take 1 Cap [facility] (NEURONTIN) 4-18 le} by mouth [facility] 300 MG 00:00: daily. of capsule 00 Medicin e gabapentin 2020-0 Yes 1{capsu Take 1 Cap [facility] (NEURONTIN) 4-18 le} by mouth [facility] 300 MG 00:00: daily. of capsule 00 Medicin e gabapentin 2020-0 Yes 1{capsu Take 1 Cap [facility] (NEURONTIN) 4-18 le} by mouth [facility] 300 MG 00:00: daily. of capsule 00 Medicin e hydrocodone 2020-0 Yes as needed. [facility] -acetaminop 3-26 [facility] (ChartboostMD) 00:00: of 10-325 MG 00 Medicin per tablet e pantoprazol 2020-0 Yes 40mg Take 40 mg [facility] 3-26 by mouth [facility] (PROTONIX) 00:00: daily. of 40 MG 00 Medicin tablet e hydrocodone 2020-0 Yes as needed. [facility] -acetaminop 3-26 [facility] ([employer]) 00:00: of 10-325 MG 00 Medicin per tablet e pantoprazol 2020-0 Yes 40mg Take 40 mg [facility] e 3-26 by mouth [facility] (PROTONIX) 00:00: daily. of 40 MG 00 Medicin tablet e hydrocodone 2020-0 Yes as needed. [facility] -acetaminop 3-26 [facility] ([employer]) 00:00: of 10-325 MG 00 Medicin per tablet e pantoprazol 2020-0 Yes 40mg Take 40 mg [facility] 3-26 by mouth [facility] (PROTONIX) 00:00: daily. of 40 MG 00 Medicin tablet e hydrocodone 2020-0 Yes as needed. [facility] -acetaminop 3-26 [facility] ([employer]) 00:00: of 10-325 MG 00 Medicin per tablet e pantoprazol 2020-0 Yes 40mg Take 40 mg [facility] 3-26 by mouth [facility] (PROTONIX) 00:00: daily. of 40 MG 00 Medicin tablet e hydrocodone 2020-0 Yes as needed. [facility] -acetaminop 3-26 [facility] ([facility]) 00:00: of 10-325 MG 00 Medicin per tablet e pantoprazol 2020-0 Yes 40mg Take 40 mg [facility] e 3-26 by mouth [facility] (PROTONIX) 00:00: daily. of 40 MG 00 Medicin tablet e hydrocodone 2020-0 Yes as needed. [facility] -acetaminop 3-26 [facility] ([employer]) 00:00: of 10-325 MG 00 Medicin per tablet e pantoprazol 2020-0 Yes 40mg Take 40 mg [facility] e 3-26 by mouth [facility] (PROTONIX) 00:00: daily. of 40 MG 00 Medicin tablet e hydrocodone 2020-0 Yes as needed. [facility] -acetaminop 3-26 [facility] ([employer]) 00:00: of 10-325 MG 00 Medicin per tablet e hydrocodone 2020-0 Yes as needed. [facility] -acetaminop 3-26 [facility] ([employer]) 00:00: of 10-325 MG 00 Medicin per tablet e pantoprazol 2020-0 Yes 40mg Take 40 mg [facility] e 3-26 by mouth [facility] (PROTONIX) 00:00: daily. of 40 MG 00 Medicin tablet e pantoprazol 2020-0 Yes 40mg Take 40 mg [facility] e 3-26 by mouth [facility] (PROTONIX) 00:00: daily. of 40 MG 00 Medicin tablet e hydrocodone 2020-0 Yes as needed. [facility] -acetaminop 3-26 [facility] ([facility]) 00:00: of 10-325 MG 00 Medicin per tablet e pantoprazol 2020-0 Yes 40mg Take 40 mg [facility] e 3-26 by mouth [facility] (PROTONIX) 00:00: daily. of 40 MG 00 Medicin tablet e hydrocodone 2020-0 Yes as needed. [facility] -acetaminop 3-26 [facility] ([employer]) 00:00: of 10-325 MG 00 Medicin per tablet e pantoprazol 2020-0 Yes 40mg Take 40 mg [facility] e 3-26 by mouth [facility] (PROTONIX) 00:00: daily. of 40 MG 00 Medicin tablet e hydrocodone 2020-0 Yes as needed. [facility] -acetaminop 3-26 [facility] ([employer]) 00:00: of 10-325 MG 00 Medicin per tablet e pantoprazol 2020-0 Yes 40mg Take 40 mg [facility] 3-26 by mouth [facility] (PROTONIX) 00:00: daily. of 40 MG 00 Medicin tablet e hydrocodone 2020-0 Yes as needed. [facility] -acetaminop 3-26 [facility] (LUDLOW) 00:00: of 10-325 MG 00 Medicin per tablet e pantoprazol 2020-0 Yes 40mg Take 40 mg [facility] e 3-26 by mouth [facility] (PROTONIX) 00:00: daily. of 40 MG 00 Medicin tablet e hydrocodone 2020-0 Yes as needed. [facility] -acetaminop 3-26 [facility] (LUDLOW) 00:00: of 10-325 MG 00 Medicin per tablet e pantoprazol 2020-0 Yes 40mg Take 40 mg [facility] 3-26 by mouth [facility] (PROTONIX) 00:00: daily. of 40 MG 00 Medicin tablet e hydrocodone 2020-0 Yes as needed. [facility] -acetaminop 3-26 [facility] (LUDLOW) 00:00: of 10-325 MG 00 Medicin per tablet e pantoprazol 2020-0 Yes 40mg Take 40 mg [facility] 3-26 by mouth [facility] (PROTONIX) 00:00: daily. of 40 MG 00 Medicin tablet e hydrocodone 2020-0 Yes as needed. [facility] -acetaminop 3-26 [facility] (LUDLOW) 00:00: of 10-325 MG 00 Medicin per tablet e pantoprazol 2020-0 Yes 40mg Take 40 mg [facility] e 3-26 by mouth [facility] (PROTONIX) 00:00: daily. of 40 MG 00 Medicin tablet e hydrocodone 2020-0 Yes as needed. [facility] -acetaminop 3-26 [facility] ([facility]) 00:00: of 10-325 MG 00 Medicin per tablet e pantoprazol 2020-0 Yes 40mg Take 40 mg [facility] e 3-26 by mouth [facility] (PROTONIX) 00:00: daily. of 40 MG 00 Medicin tablet e hydrocodone 2020-0 Yes as needed. [facility] -acetaminop 3-26 [facility] (LUDLOW) 00:00: of 10-325 MG 00 Medicin per tablet e pantoprazol 2020-0 Yes 40mg Take 40 mg [facility] e 3-26 by mouth [facility] (PROTONIX) 00:00: daily. of 40 MG 00 Medicin tablet e hydrocodone 2020-0 Yes as needed. [facility] -acetaminop 3-26 [facility] ([facility]) 00:00: of 10-325 MG 00 Medicin per tablet e pantoprazol 2020-0 Yes 40mg Take 40 mg [facility] 3-26 by mouth [facility] (PROTONIX) 00:00: daily. of 40 MG 00 Medicin tablet e hydrocodone 2020-0 Yes as needed. [facility] -acetaminop 3-26 [facility] ([facility]) 00:00: of 10-325 MG 00 Medicin per tablet e pantoprazol 2020-0 Yes 40mg Take 40 mg [facility] 3-26 by mouth [facility] (PROTONIX) 00:00: daily. of 40 MG 00 Medicin tablet e hydrocodone 2020-0 Yes as needed. [facility] -acetaminop 3-26 [facility] ([facility]) 00:00: of 10-325 MG 00 Medicin per tablet e pantoprazol 2020-0 Yes 40mg Take 40 mg [facility] 3-26 by mouth [facility] (PROTONIX) 00:00: daily. of 40 MG 00 Medicin tablet e hydrocodone 2020-0 Yes as needed. [facility] -acetaminop 3-26 [facility] ([facility]) 00:00: of 10-325 MG 00 Medicin per tablet e pantoprazol 2020-0 Yes 40mg Take 40 mg [facility] e 3-26 by mouth [facility] (PROTONIX) 00:00: daily. of 40 MG 00 Medicin tablet e hydrocodone 2020-0 Yes as needed. [facility] -acetaminop 3-26 [facility] ([facility]) 00:00: of 10-325 MG 00 Medicin per tablet e pantoprazol 2020-0 Yes 40mg Take 40 mg [facility] 3-26 by mouth [facility] (PROTONIX) 00:00: daily. of 40 MG 00 Medicin tablet e hydrocodone 2020-0 Yes as needed. [facility] -acetaminop 3-26 [facility] ([employer]) 00:00: of 10-325 MG 00 Medicin per tablet e pantoprazol 2020-0 Yes 40mg Take 40 mg [facility] e 3-26 by mouth [facility] (PROTONIX) 00:00: daily. of 40 MG 00 Medicin tablet e hydrocodone 2020-0 Yes as needed. [facility] -acetaminop 3-26 [facility] (NORCO) 00:00: of 10-325 MG 00 Medicin per tablet e pantoprazol 2020-0 Yes 40mg Take 40 mg [facility] e 3-26 by mouth [facility] (PROTONIX) 00:00: daily. of 40 MG 00 Medicin tablet e metoprolol 2020-0 Yes daily. [facility] (TOPROL-XL) 3-21 [facility] 25 MG XL 00:00: of tablet 00 Medicin e metoprolol 2020-0 Yes daily. [facility] (TOPROL-XL) 3-21 [facility] 25 MG XL 00:00: of tablet 00 Medicin e metoprolol 2020-0 Yes 25mg Take 25 mg [facility] (TOPROL-XL) 3-21 by mouth [facility] 25 MG XL 00:00: daily. of tablet 00 Medicin e metoprolol 2020-0 Yes 25mg Take 25 mg [facility] (TOPROL-XL) 3-21 by mouth [facility] 25 MG XL 00:00: daily. of tablet 00 Medicin e metoprolol 2020-0 Yes 25mg Take 25 mg [facility] (TOPROL-XL) 3-21 by mouth [facility] 25 MG XL 00:00: daily. of tablet 00 Medicin e metoprolol 2020-0 Yes 25mg Take 25 mg [facility] (TOPROL-XL) 3-21 by mouth [facility] 25 MG XL 00:00: daily. of tablet 00 Medicin e metoprolol 2020-0 Yes 25mg Take 25 mg [facility] (TOPROL-XL) 3-21 by mouth [facility] 25 MG XL 00:00: daily. of tablet 00 Medicin e metoprolol 2020-0 Yes 25mg Take 25 mg [facility] (TOPROL-XL) 3-21 by mouth [facility] 25 MG XL 00:00: daily. of tablet 00 Medicin e metoprolol 2020-0 Yes 25mg Take 25 mg [facility] (TOPROL-XL) 3-21 by mouth [facility] 25 MG XL 00:00: daily. of tablet 00 Medicin e metoprolol 2020-0 Yes 25mg Take 25 mg [facility] (TOPROL-XL) 3-21 by mouth [facility] 25 MG XL 00:00: daily. of tablet 00 Medicin e metoprolol 2020-0 Yes 25mg Take 25 mg [facility] (TOPROL-XL) 3-21 by mouth [facility] 25 MG XL 00:00: daily. of tablet 00 Medicin e metoprolol 2020-0 Yes 25mg Take 25 mg [facility] (TOPROL-XL) 3-21 by mouth [facility] 25 MG XL 00:00: daily. of tablet 00 Medicin e metoprolol 2020-0 Yes 25mg Take 25 mg [facility] (TOPROL-XL) 3-21 by mouth [facility] 25 MG XL 00:00: daily. of tablet 00 Medicin e metoprolol 2020-0 Yes 25mg Take 25 mg [facility] (TOPROL-XL) 3-21 by mouth [facility] 25 MG XL 00:00: daily. of tablet 00 Medicin e metoprolol 2020-0 Yes 25mg Take 25 mg [facility] (TOPROL-XL) 3-21 by mouth [facility] 25 MG XL 00:00: daily. of tablet 00 Medicin e metoprolol 2020-0 Yes 25mg Take 25 mg [facility] (TOPROL-XL) 3-21 by mouth [facility] 25 MG XL 00:00: daily. of tablet 00 Medicin e metoprolol 2020-0 Yes 25mg Take 25 mg [facility] (TOPROL-XL) 3-21 by mouth [facility] 25 MG XL 00:00: daily. of tablet 00 Medicin e metoprolol 2020-0 Yes 25mg Take 25 mg [facility] (TOPROL-XL) 3-21 by mouth [facility] 25 MG XL 00:00: daily. of tablet 00 Medicin e metoprolol 2020-0 Yes 25mg Take 25 mg [facility] (TOPROL-XL) 3-21 by mouth [facility] 25 MG XL 00:00: daily. of tablet 00 Medicin e metoprolol 2020-0 Yes 25mg Take 25 mg [facility] (TOPROL-XL) 3-21 by mouth [facility] 25 MG XL 00:00: daily. of tablet 00 Medicin e metoprolol 2020-0 Yes 25mg Take 25 mg [facility] (TOPROL-XL) 3-21 by mouth [facility] 25 MG XL 00:00: daily. of tablet 00 Medicin e metoprolol 2020-0 Yes 25mg Take 25 mg [facility] (TOPROL-XL) 3-21 by mouth [facility] 25 MG XL 00:00: daily. of tablet 00 Medicin e metoprolol 2020-0 Yes 25mg Take 25 mg [facility] (TOPROL-XL) 3-21 by mouth [facility] 25 MG XL 00:00: daily. of tablet 00 Medicin e metoprolol 2020-0 Yes daily. [facility] (TOPROL-XL) 3-21 [facility] 25 MG XL 00:00: of tablet 00 Medicin e Immunizations Ordered Immunization Filled Immunization Date Status Commen ts Source Name Name Moderna SARS-CoV-2 2021-04-26 Completed [facility] 00:00:00 of Medicine Moderna SARS-CoV-2 2021-04-26 Completed [facility] Vaccination 00:00:00 of Medicine Moderna SARS-CoV-2 2021-04-26 Completed [facility] Vaccination 00:00:00 of Medicine Moderna SARS-CoV-2 2021-04-26 Completed [facility] Vaccination 00:00:00 of Medicine Moderna SARS-CoV-2 2020-10-27 Completed [facility] Vaccination 00:00:00 of Medicine Moderna SARS-CoV-2 2020-10-27 Completed [facility] Vaccination 00:00:00 of Medicine Moderna SARS-CoV-2 2020-10-27 Completed [facility] Vaccination 00:00:00 of Medicine Moderna SARS-CoV-2 2020-10-27 Completed [facility] Vaccination 00:00:00 of Medicine Moderna SARS-CoV-2 2020-10-27 Completed [facility] Vaccination 00:00:00 of Medicine Moderna SARS-CoV-2 2020-10-27 Completed [facility] Vaccination 00:00:00 of Medicine Moderna SARS-CoV-2 2020-10-27 Completed [facility] Vaccination 00:00:00 of Medicine Moderna SARS-CoV-2 2020-10-27 Completed [facility] Vaccination 00:00:00 of Medicine Moderna SARS-CoV-2 2020-10-27 Completed [facility] Vaccination 00:00:00 of Medicine Moderna SARS-CoV-2 2020-10-27 Completed [facility] Vaccination 00:00:00 of Medicine Moderna SARS-CoV-2 2020-10-27 Completed [facility] Vaccination 00:00:00 of Medicine Moderna SARS-CoV-2 2020-10-27 Completed [facility] Vaccination 00:00:00 of Medicine Moderna SARS-CoV-2 2020-10-27 Completed [facility] 00:00:00 of Medicine Moderna SARS-CoV-2 2020-10-27 Completed [facility] 00:00:00 of Medicine Moderna SARS-CoV-2 2020-10-27 Completed [facility] 00:00:00 of Medicine Moderna SARS-CoV-2 2020-09-29 Completed [facility] Vaccination 00:00:00 of Medicine Moderna SARS-CoV-2 2020-09-29 Completed [facility] Vaccination 00:00:00 of Medicine Moderna SARS-CoV-2 2020-09-29 Completed [facility] Vacc[facility] 00:00:00 of Medicine Moderna SARS-CoV-2 2020-09-29 Completed [facility] Vaccination 00:00:00 of Medicine Moderna SARS-CoV-2 2020-09-29 Completed [facility] 00:00:00 of Medicine Moderna SARS-CoV-2 2020-09-29 Completed [facility] 00:00:00 of Medicine Moderna SARS-CoV-2 2020-09-29 Completed [facility] Vaccination 00:00:00 of Medicine Moderna SARS-CoV-2 2020-09-29 Completed [facility] Vaccination 00:00:00 of Medicine Moderna SARS-CoV-2 2020-09-29 Completed [facility] Vaccination 00:00:00 of Medicine Moderna SARS-CoV-2 2020-09-29 Completed [facility] Vaccination 00:00:00 of Medicine Moderna SARS-CoV-2 2020-09-29 Completed [facility] Vaccination 00:00:00 of Medicine Moderna SARS-CoV-2 2020-09-29 Completed [facility] Vaccination 00:00:00 of Medicine Moderna SARS-CoV-2 2020-09-29 Completed [facility] Vaccination 00:00:00 of Medicine Moderna SARS-CoV-2 2020-09-29 Completed [facility] Vaccination 00:00:00 of Medicine Moderna SARS-CoV-2 2020-09-29 Completed [facility] Vaccination 00:00:00 of Medicine Moderna SARS-CoV-2 2020-09-29 Completed [facility] Vaccination 00:00:00 of Medicine Moderna SARS-CoV-2 2020-09-29 Completed [facility] Vacc[facility] 00:00:00 of Medicine Pneumococcal 2019-04-05 Completed [facility] Polysaccharide 00:00:00 of Medicin e Pneumococcal 2019-04-05 Completed [facility] Polysaccharide 00:00:00 of Medicin e Pneumococcal 2019-04-05 Completed [facility] Polysaccharide 00:00:00 of Medicin e Pneumococcal 2019-04-05 Completed [facility] Polysaccharide 00:00:00 of Medicin e Pneumococcal 2019-04-05 Completed [facility] Polysaccharide 00:00:00 of Medicin e Pneumococcal 2019-04-05 Completed [facility] Polysaccharide 00:00:00 of Medicin e Pneumococcal 2019-04-05 Completed [facility] Polysaccharide 00:00:00 of Medicin e Pneumococcal 2019-04-05 Completed [facility] Polysaccharide 00:00:00 of Medicin e Pneumococcal 2019-04-05 Completed [facility] Polysaccharide 00:00:00 of Medicin e Pneumococcal 2019-04-05 Completed [facility] Polysaccharide 00:00:00 of Medicin e Pneumococcal 2019-04-05 Completed [facility] Polysaccharide 00:00:00 of Medicin e Pneumococcal 2019-04-05 Completed [facility] Polysaccharide 00:00:00 of Medicin e Pneumococcal 2019-04-05 Completed [facility] Polysaccharide 00:00:00 of Medicin e Pneumococcal 2019-04-05 Completed [facility] Polysaccharide 00:00:00 of Medicin e Vital Signs Vital Name Observation Time Observation Value Comments Source WEIGHT 2020-07-28 05:00:00 82.4 kg WEIGHT 2020-07-27 05:00:00 82 kg HEIGHT 2020-07-24 05:45:00 172.7 cm WEIGHT 2020-07-24 05:45:00 72.802 kg HEIGHT 2020-07-23 09:12:00 172.7 cm WEIGHT 2020-07-23 09:12:00 77.111 kg HEIGHT 2020-01-17 00:00:00 172.7 cm WEIGHT 2020-01-17 00:00:00 76.703 kg HEIGHT 2020-01-04 00:00:00 172.7 cm WEIGHT 2020-01-04 00:00:00 76.2 kg Systolic blood 2021-07-25 19:06:00 120 mm[Hg] [facility] pressure Medicine Diastolic blood 2021-07-25 19:06:00 73 mm[Hg] [facility] Medicine Heart rate 2021-07-25 19:06:00 93 /min [facility] Body height 2021-07-25 19:06:00 172.7 cm [facility] Body weight 2021-07-25 19:06:00 74.844 kg [facility] BMI 2021-07-25 19:06:00 25.09 kg/m2 [facility] Systolic blood 2021-05-23 16:29:00 129 mm[Hg] [facility] pressure Medicine Diastolic blood 2021-05-23 16:29:00 84 mm[Hg] [facility] Medicine Heart rate 2021-05-23 16:29:00 91 /min [facility] Body temperature 2021-05-23 16:29:00 37.11 [facility] Respiratory rate 2021-05-23 16:29:00 16 /min [facility] Body height 2021-05-23 16:29:00 172.7 cm [facility] Body weight 2021-05-23 16:29:00 80.74 kg [facility] BMI 2021-05-23 16:29:00 27.06 kg/m2 [facility] Systolic blood 2021-03-01 15:16:00 137 mm[Hg] [facility] Medicine Diastolic blood 2021-03-01 15:16:00 74 mm[Hg] [facility] Medicine Heart rate 2021-03-01 15:16:00 95 /min [facility] Body temperature 2021-03-01 15:16:00 36.67 [facility] Body height 2021-03-01 15:16:00 172.7 cm [facility] Body weight 2021-03-01 15:16:00 84.732 kg [facility] BMI 2021-03-01 15:16:00 28.40 kg/m2 [facility] WEIGHT 2021-02-06 09:44:00 77.111 kg Systolic blood 2021-01-21 18:22:00 142 mm[Hg] [facility] Medicine Diastolic blood 2021-01-21 18:22:00 71 mm[Hg] [facility] Medicine Heart rate 2021-01-21 18:22:00 85 /min [facility] Respiratory rate 2021-01-21 18:22:00 18 /min [facility] Systolic blood 2020-12-17 19:36:00 149 mm[Hg] [facility] Medicine Diastolic blood 2020-12-17 19:36:00 81 mm[Hg] [facility] Medicine Heart rate 2020-12-17 19:36:00 109 /min [facility] Body temperature 2020-12-17 19:36:00 36.83 [facility] Body height 2020-12-17 19:36:[facility] Body weight 2020-12-17 19:36:[facility] BMI 2020-12-17 19:36:00 27.37 [facility] Systolic blood 2020-11-15 20:59:00 150 mm[Hg] [facility] Medicine Diastolic blood 2020-11-15 20:59:00 78 mm[Hg] [facility] Medicine Heart rate 2020-11-15 20:59:00 82 /min [facility] Body temperature 2020-11-15 20:59:00 36.89 [facility] Respiratory rate 2020-11-15 20:59:00 16 /min [facility] Body height 2020-11-15 20:59:00 172.7 cm [facility] Body weight 2020-11-15 20:59:[facility] [facility] BMI 2020-11-15 20:59:00 26.00 kg/m2 [facility] Systolic blood 2020-10-18 21:35:00 117 mm[Hg] [facility] Medicine Diastolic blood 2020-10-18 21:35:00 72 mm[Hg] [employer] [facility] pressure Medicine Heart rate 2020-10-18 21:35:00 94 /min [facility] Medicine Systolic blood 2020-10-17 16:37:00 134 mm[Hg] [facility] pressure Medicine Diastolic blood 2020-10-17 16:37:00 80 mm[Hg] [facility] pressure Medicine Heart rate 2020-10-17 16:37:00 81 /min [facility] Body temperature 2020-10-17 16:37:00 36.89 [facility] Body height 2020-10-17 16:37:00 [facility] Systolic blood 2020-09-21 19:51:00 115 mm[Hg] [facility] pressure Medicine Diastolic blood 2020-09-21 19:51:00 66 mm[Hg] [facility] pressure Medicine Heart rate 2020-09-21 19:51:00 94 /min [facility] Body temperature 2020-09-21 19:51:00 36 [facility] Systolic blood 2020-08-13 19:38:00 144 mm[Hg] [facility] pressure Medicine Diastolic blood 2020-08-13 19:38:00 74 mm[Hg] [facility] pressure Medicine Heart rate 2020-08-13 19:38:00 88 /min [facility] Body temperature 2020-08-13 19:38:00 37 [facility] Body height 2020-08-13 19:38:00 [facility] Body weight 2020-08-13 19:38:00 [facility]576 [facility] 2020-08-13 19:38:00 24.33 [facility]2 [facility] 2020-08-07 19:44:00 138 mm[Hg] [facility] of pressure Medicine Diastolic blood 2020-08-07 19:44:00 76 mm[Hg] [facility] of pressure Medicine Heart rate 2020-08-07 19:44:00 84 /min [facility] ollege of Medicine Systolic blood 2020-08-06 19:05:00 122 mm[Hg] [facility] of pressure Medicine Diastolic blood 2020-08-06 19:05:00 75 mm[Hg] [facility] pressure Medicine Heart rate 2020-08-06 19:05:00 92 /min [facility] ol[facility] of [facility] Body temperature 2020-08-06 19:05:00 36.72 Jess [facility] or [facility] Respiratory rate 2020-08-06 19:05:00 16 /min [facility] Body height 2020-08-06 19:05:00 172.7 cm [facility] ollege of Medicine Body weight 2020-08-06 19:05:00 77.111 kg [facility] of Medicine BMI 2020-08-06 19:05:00 25.85 kg/m2 [facility] of [facility] WEIGHT 2020-07-28 05:00:00 82.4 kg WEIGHT 2020-07-27 05:00:00 82 kg HEIGHT 2020-07-24 05:45:00 172.7 cm WEIGHT 2020-07-24 05:45:00 72.802 kg HEIGHT 2020-07-23 09:12:00 172.7 cm WEIGHT 2020-07-23 09:12:00 77.111 kg Systolic blood 2020-06-18 13:11:00 120 mm[Hg] [facility] of pressure Medicine Diastolic blood 2020-06-18 13:11:00 71 mm[Hg] [facility] of pressure Medicine Heart rate 2020-06-18 13:11:00 83 /min [facility] ol[facility] of [facility] Body temperature 2020-06-18 13:11:00 36.83 Jess [facility] Body height 2020-06-18 13:11:00 172.7 cm [facility] ol[facility] of [facility] Body weight 2020-06-18 13:11:00 77.111 kg [facility] ol[facility] BMI 2020-06-18 13:11:00 25[facility]85 [facility] Systolic blood 2020-06-13 16:37:00 136 mm[Hg] [facility] of pressure Medicine Diastolic blood 2020-06-13 16:37:00 75 mm[Hg] [facility] pressure Medicine Heart rate 2020-06-13 16:37:00 103 /min [facility] of [facility] Body temperature 2020-06-13 16:37:00 36.83 Jess [facility] Body height 2020-06-13 16:37:00 172.7 cm [facility] of Medicine Body weight 2020-06-13 16:37:00 78.019 kg [facility] BMI 2020-06-13 16:37:00 26.15 kg/m2 [facility] of Medicine Systolic blood 2020-06-11 18:46:00 123 mm[Hg] [facility] pressure Medicine Diastolic blood 2020-06-11 18:46:00 84 mm[Hg] [facility] pressure Medicine Heart rate 2020-06-11 18:46:00 114 /min [facility] Medicine Body temperature 2020-06-11 18:46:00 36.89 Jess [facility] Body height 2020-06-11 18:46:00 172.7 cm [facility] of Medicine Body weight 2020-06-11 18:46:00 77.111 kg [facility] BMI 2020-06-11 18:46:00 25.85 kg/m2 [facility] ol[facility] of [facility] Systolic blood 2020-05-07 20:05:00 129 mm[Hg] [facility] pressure Medicine Diastolic blood 2020-05-07 20:05:00 81 mm[Hg] [facility] Medicine Heart rate 2020-05-07 20:05:00 93 /min [facility] ol[facility] of Medicine Body temperature 2020-05-07 20:05:00 36.5 Jess [facility] Respiratory rate 2020-05-07 20:05:00 16 /min [facility] Body height 2020-05-07 20:05:00 172.7 cm [facility] of Medicine Body weight 2020-05-07 20:05:00 80.74 kg [facility] Medicine BMI 2020-05-07 20:05:00 27.06 kg/m2 [facility] of Medicine Systolic blood 2020-03-05 15:51:00 130 mm[Hg] [facility] of pressure Medicine Diastolic blood 2020-03-05 15:51:00 78 mm[Hg] [facility] of pressure Medicine Heart rate 2020-03-05 15:51:00 58 /min [facility] Body temperature 2020-03-05 15:51:00 36.89 Jess [facility] Body height 2020-03-05 15:51:00 172.7 cm [facility] of Medicine Body weight 2020-03-05 15:51:00 77.111 kg [facility] of Medicine BMI 2020-03-05 15:51:00 25.85 kg/m2 [facility] of Medicine Systolic blood 2020-03-05 13:06:00 150 mm[Hg] [facility] pressure Medicine Diastolic blood 2020-03-05 13:06:00 71 mm[Hg] [facility] pressure Medicine Heart rate 2020-03-05 13:06:00 84 /min [facility] of Medicine Body temperature 2020-03-05 13:06:00 37.06 Jess [facility] Body height 2020-03-05 13:06:00 172.7 cm [facility] of Medicine Body weight 2020-03-05 13:06:00 77.384 kg [facility] BMI 2020-03-05 13:06:00 25.94 kg/m2 [facility] of Medicine Systolic blood 2020-02-23 18:47:00 131 mm[Hg] [facility] pressure Medicine Diastolic blood 2020-02-23 18:47:00 75 mm[Hg] [facility] Medicine Heart rate 2020-02-23 18:47:00 94 /min [facility] ol[facility] of [facility] Body temperature 2020-02-23 18:47:00 36.61 Jess [facility] Respiratory rate 2020-02-23 18:47:00 16 /min [facility] Body height 2020-02-23 18:47:00 172.7 cm [facility] Body weight 2020-02-23 18:47:00 81.194 kg [facility] of Medicine BMI 2020-02-23 18:47:00 27.22 kg/m2 [facility] of Medicine Systolic blood 2020-02-13 18:52:00 151 mm[Hg] [facility] pressure Medicine Diastolic blood 2020-02-13 18:52:00 80 mm[Hg] [facility] pressure Medicine Heart rate 2020-02-13 18:52:00 81 /min [facility] of Medicine Body temperature 2020-02-13 18:52:00 37.11 Jess [facility] Body height 2020-02-13 18:52:00 172.7 cm [facility] Medicine Body weight 2020-02-13 18:52:00 77.474 kg [facility] BMI 2020-02-13 18:52:00 25.97 kg/m2 [facility] Medicine HEIGHT 2020-01-17 00:00:00 172.7 cm WEIGHT 2020-01-17 00:00:00 76.703 kg Systolic blood 2020-01-19 18:50:00 129 mm[Hg] [facility] pressure Medicine Diastolic blood 2020-01-19 18:50:00 77 mm[Hg] [facility] pressure Medicine Heart rate 2020-01-19 18:50:00 101 /min [facility] ol[facility] of Medicine Body temperature 2020-01-19 18:50:00 36.78 Jess [facility] Respiratory rate 2020-01-19 18:50:00 18 /min [facility] Body height 2020-01-19 18:50:00 172.7 cm [facility] Body weight 2020-01-19 18:50:00 76.295 kg [facility] ol[facility] BMI 2020-01-19 18:50:00 25.57 kg/m2 [facility] ol[facility] of Medicine Systolic blood 2020-01-19 18:50:00 129 mm[Hg] [facility] pressure Medicine Diastolic blood 2020-01-19 18:50:00 77 mm[Hg] [facility] Medicine Heart rate 2020-01-19 18:50:00 101 /min [facility] ol[facility] of Medicine Body temperature 2020-01-19 18:50:00 36.78 Jess [facility] Respiratory rate 2020-01-19 18:50:00 18 /min [facility] Body height 2020-01-19 18:50:00 172.7 cm [facility] of [facility] Body weight 2020-01-19 18:50:00 76.295 kg [facility] of Medicine BMI 2020-01-19 18:50:00 25.57 kg/m2 [facility] HEIGHT 2020-01-04 00:00:00 172.7 cm WEIGHT 2020-01-04 00:00:00 76.2 kg Procedures Procedure Date / Time Performing Clinician Source Performed POCT URINALYSIS DIPSTICK 2021-01-21 00:00:00 Nadine Ocasio [facility] COMPREHENSIVE METABOLIC 2020-10-18 20:33:00 Francoise [facility] CBC W/AUTO DIFF WITH 2020-10-18 20:33:00 Francoise [facility] POCT URINALYSIS DIPSTICK 2020-10-18 00:00:00 Nadine Ocasio [facility] POCT URINALYSIS DIPSTICK 2020-09-21 00:00:00 Gilles Bowser [facility] CULTURE, SPUTUM 2020-06-14 15:00[facility] 2020-06-14 15:00:00 [facility] URINALYSIS, COMPLETE 2020-06-14 15:00:00 Francoise [facility]/REFLEX TO CULTURE Medicine C-REACTIVE PROTEIN 2020-06-13 18:00[facility] 2020-06-13 [facility] 2020-02-13 22:35:00 [facility] GASTRIN 2020-02-13 22:35:00 [facility] W/AUTO DIFF WITH 2020-02-13 22:35[facility]00 [facility] CHROMOGRANIN A 2020-02-13 22:35:00 [facility] Plan of Care Planned Activity Planned Date Details Comments Source Future Scheduled 2021-08-31 CT CHEST ABDOMEN Expected: [facility] Test 00:00:00 PELVIS W/WO CONTRAST 08/31/2021, of [facility] [code = 76530] Expires: 03/01/2022 Future Scheduled 2021-07-25 TETANUS SHOT (ADULT) [employer] [facility] 15:00:26 [code = TETANUS SHOT of Medi cine (ADULT)] Future Scheduled 2021-07-25 Hepatitis C screening [employer] Test 15:00:26 (procedure) [code = of Medic ine [id number]] Future Scheduled 2021-07-25 ZOSTER VACCINE (1 of [employer] Test 15:00:26 2) [code = ZOSTER of Medicin e VACCINE (1 of 2)] Future Scheduled 2021-07-25 MEDICARE AWV [facility] [employer] Test 15:00:26 (Initial) [code = of Medicin e MEDICARE AWV (Initial)] Future Scheduled 2021-07-25 Pneumococcal 65+ (2 [employer] Test 15:00:26 of 2 - PCV13) [code = of Med icine Pneumococcal 65+ (2 of 2 - PCV13)] Future Scheduled 2021-07-25 FLU VACCINE > 6 [facility] C [facility]lege Test 15:00:26 MONTHS [code = FLU of Medici ne VACCINE > 6 MONTHS] Future Scheduled 2021-07-25 FALL SCREEN [code = [employer] [facility] 15:00:26 FALL SCREEN] of Medicine Future Scheduled 2021-07-25 BMI FOLLOW UP PLAN [employer] [facility] 15:00:26 [code = BMI FOLLOW UP of Med icine PLAN] Future Scheduled 2021-07-24 US RENAL BILATERAL Expected: [employer] Test 00:00:00 [code = 10084] 07/24/2021 of Medicine (Approximate), Expires: 01/21/2022 Future Scheduled 2021-05-23 PULSE OXIMETER [code Ordered: [employer] [facility] 12:20:48 = NOCPT] 05/23/2021 of Medicine Future Scheduled 2021-05-23 PULSE OXIMETER [code Ordered: [employer] [facility] 12:20:48 = NOCPT] 05/23/2021 of Medicine Future Scheduled 2021-05-23 COMPLETE PFT WITH 1 Occurrences [employer] [facility] 12:20:48 BRONCHODILATOR [code starting of Medi cine = 23216] 05/23/2021 until 05/23/2022 Future Scheduled 2021-05-23 SIX MINUTE WALK TEST 1 Occurrences [employer] Test 12:20:48 [code = 67244] starting of Medicine 05/23/2021 until 05/23/2022 Future Scheduled 2021-05-23 COMPLETE PFT WITH 1 Occurrences [employer] Test 12:20:48 BRONCHODILATOR [code starting of Medi cine = 99892] 05/23/2021 until 05/23/2022 Future Scheduled 2021-05-23 SIX MINUTE WALK TEST 1 Occurrences [employer] Test 12:20:48 [code = 99405] starting of Medicine 05/23/2021 until 05/23/2022 Future Scheduled 2021-05-23 TETANUS SHOT (ADULT) [employer] [facility] 11:52:00 [code = TETANUS SHOT of Medi cine (ADULT)] Future Scheduled 2021-05-23 Hepatitis C screening [employer] Test 11:52:00 (procedure) [code = of Medic ine [id number]] Future Scheduled 2021-05-23 ZOSTER VACCINE (1 of [employer] [facility] 11:52:00 2) [code = ZOSTER of Medicin e VACCINE (1 of 2)] Future Scheduled 2021-05-23 MEDICARE AWV [facility] [employer] Test 11:52:00 (Initial) [code = of Medicin e MEDICARE AWV (Initial)] Future Scheduled 2021-05-23 FLU VACCINE > 6 [facility] Test 11:52:00 MONTHS [code = FLU of Medici ne VACCINE > 6 MONTHS] Future Scheduled 2021-05-23 FALL SCREEN [code = [employer] Test 11:52:00 FALL SCREEN] of Medicine Future Scheduled 2021-05-23 BMI FOLLOW UP PLAN [employer] Test 11:52:00 [code = BMI FOLLOW UP of Med icine PLAN] Future Scheduled 2021-05-23 TETANUS SHOT (ADULT) [employer] [facility] 11:52:00 [code = TETANUS SHOT of Medi cine (ADULT)] Future Scheduled 2021-05-23 Hepatitis C screening [employer] Test 11:52:00 (procedure) [code = of Medic ine [id number]] Future Scheduled 2021-05-23 ZOSTER VACCINE (1 of [employer] [facility] 11:52:00 2) [code = ZOSTER of Medicin e VACCINE (1 of 2)] Future Scheduled 2021-05-23 MEDICARE AWV [facility] [employer] [facility] 11:52:00 (Initial) [code = of Medicin e MEDICARE AWV (Initial)] Future Scheduled 2021-05-23 FLU VACCINE > 6 [facility] 11:52:00 MONTHS [code = FLU of Medici ne VACCINE > 6 MONTHS] Future Scheduled 2021-05-23 FALL SCREEN [code = [employer] Test 11:52:00 FALL SCREEN] of Medicine Future Scheduled 2021-05-23 BMI FOLLOW UP PLAN [employer] [facility] 11:52:00 [code = BMI FOLLOW UP of Med icine PLAN] Future Scheduled 2021-05-07 TETANUS SHOT (ADULT) [employer] [facility] 13:06:09 [code = TETANUS SHOT of Medi cine (ADULT)] Future Scheduled 2021-05-07 Hepatitis C screening [employer] Test 13:06:09 (procedure) [code = of Medic ine [id number]] Future Scheduled 2021-05-07 ZOSTER VACCINE (1 of [employer] [facility] 13:06:09 2) [code = ZOSTER of Medicin e VACCINE (1 of 2)] Future Scheduled 2021-05-07 MEDICARE AWV [facility] [employer] [facility] 13:06:09 (Initial) [code = of Medicin e MEDICARE AWV (Initial)] Future Scheduled 2021-05-07 FLU VACCINE > 6 [facility] C [facility]lege Test 13:06:09 MONTHS [code = FLU of Medici ne VACCINE > 6 MONTHS] Future Scheduled 2021-05-07 FALL SCREEN [code = [employer] [facility] 13:06:09 FALL SCREEN] of Medicine Future Scheduled 2021-05-07 BMI FOLLOW UP PLAN [employer] [facility] 13:06:09 [code = BMI FOLLOW UP of Med icine PLAN] Future Scheduled 2021-03-01 TETANUS SHOT (ADULT) [employer] [facility] 21:39:58 [code = TETANUS SHOT of Medi cine (ADULT)] Future Scheduled 2021-03-01 Hepatitis C screening [employer] [facility] 21:39:58 (procedure) [code = of Medic ine [id number]] Future Scheduled 2021-03-01 ZOSTER VACCINE (1 of [employer] [facility] 21:39:58 2) [code = ZOSTER of Medicin e VACCINE (1 of 2)] Future Scheduled 2021-03-01 MEDICARE AWV [facility] [employer] [facility] 21:39:58 (Initial) [code = of Medicin e MEDICARE AWV (Initial)] Future Scheduled 2021-03-01 FLU VACCINE > 6 [facility] C [facility]lege Test 21:39:58 MONTHS [code = FLU of Medici ne VACCINE > 6 MONTHS] Future Scheduled 2021-03-01 FALL SCREEN [code = [employer] [facility] 21:39:58 FALL SCREEN] of Medicine Future Scheduled 2021-03-01 BMI FOLLOW UP PLAN [employer] [facility] 21:39:58 [code = BMI FOLLOW UP of Med icine PLAN] Future Scheduled 2021-03-01 CBC W/AUTO DIFF WITH Ordered: [employer] [facility] 10:39:20 PLATELETS [code = 03/01/2021 of Medicin e 74947-7] Future Scheduled 2021-03-01 COMPREHENSIVE Ordered: [facility] [employer] Test 10:39:20 METABOLIC PANEL [code 03/01/2021 of Med icine = 38002-2] Diagnostic Test 2021-02-14 CT CHEST W ABD/PELVIS Expected: [facility] Pending 00:00:00 WO/W [code = 10523] 02/14/2021, of Medic ine Expires: 05/17/2021 Future Scheduled 2021-01-21 TETANUS SHOT (ADULT) [employer] [facility] 13:51:36 [code = TETANUS SHOT of Medi cine (ADULT)] Future Scheduled 2021-01-21 Hepatitis C screening [facility] Test 13:51:36 (procedure) [code = of Medic ine [id number]] Future Scheduled 2021-01-21 ZOSTER VACCINE (1 of [employer] [facility] 13:51:36 2) [code = ZOSTER of Medicin e VACCINE (1 of 2)] Future Scheduled 2021-01-21 MEDICARE AWV [facility] [employer] Test 13:51:36 (Initial) [code = of Medicin e MEDICARE AWV (Initial)] Future Scheduled 2021-01-21 FLU VACCINE > 6 [facility] C [facility]lege Test 13:51:36 MONTHS [code = FLU of Medici ne VACCINE > 6 MONTHS] Future Scheduled 2021-01-21 FALL SCREEN [code = [employer] [facility] 13:51:36 FALL SCREEN] of Medicine Future Scheduled 2021-01-21 BMI FOLLOW UP PLAN [employer] [facility] 13:51:36 [code = BMI FOLLOW UP of Med icine PLAN] Future Scheduled 2021-01-21 BASIC METABOLIC PANEL Ordered: [employer] [facility] 13:39:35 [code = 71878-6] 01/21/2021 of Medicine Diagnostic Test 2020-10-15 MRI ABDOMEN W WO Expected: [facility] Pending 00:00:00 CONTRAST [code = 10/15/2020, of Medicine 09793-1] Expires: 01/11/2021 Diagnostic Test 2020-06-25 BASIC METABOLIC PANEL Expected: [facility] Pending 00:00:00 [code = 94265-6] 06/25/2020 of Medicine (Approximate), Expires: 12/10/2020 Diagnostic Test 2020-05-29 CT CHEST W CONTRAST Expected: [facility] Pending 00:00:00 [code = 56148-0] 05/29/2020, of Medicine Expires: 10/05/2020 Diagnostic Test 2020-05-29 CT ABDOMEN PELVIS W Expected: [facility] Pending 00:00:00 WO CONTRAST [code = 05/29/2020, of Medic ine 72668-5] Expires: 10/05/2020 Diagnostic Test 2020-05-29 CHROMOGRANIN A [code Expected: [facility] Pending 00:00:00 = NOCPT] 05/29/2020, of Medicine Expires: 09/04/2020 Diagnostic Test 2020-05-29 CBC W/AUTO DIFF WITH Expected: [facility] or [facility] Pending 00:00:00 PLATELETS [code = 05/29/2020, of Medicin e 78233-6] Expires: 09/04/2020 Diagnostic Test 2020-05-29 COMPREHENSIVE Expected: [facility] [employer] Pending 00:00:00 METABOLIC PANEL [code 05/29/2020, of Med icine = 56724-8] Expires: 09/04/2020 Diagnostic Test 2020-02-27 (SCN) PET SCAN [code Expected: [facility] or [facility] Pending 00:00:00 = NOCPT] 02/27/2020, of Medicine Expires: 08/14/2021 Diagnostic Test 2020-01-25 BRONCHOSCOPY [code = Expected: [facility] or [facility] Pending 00:00:00 NOCPT] 01/25/2020, of Medicine Expires: 01/18/2021 Future Scheduled TETANUS SHOT (ADULT) [facility] Test [code = TETANUS SHOT of Medi cine (ADULT)] Future Scheduled BMI FOLLOW UP PLAN [employer] Test [code = BMI FOLLOW UP of Med icine PLAN] Future Scheduled MEDICARE AWV [facility] (Initial) [code = of Medicin e MEDICARE AWV (Initial)] Future Scheduled FALL SCREEN [code = [employer] FALL SCREEN] of Medicine Future Scheduled FLU VACCINE > 6 [facility] C ollege Test MONTHS [code = FLU of Medici ne VACCINE > 6 MONTHS] Future Scheduled TETANUS SHOT (ADULT) [employer] [facility] [code = TETANUS SHOT of Medi cine (ADULT)] Future Scheduled BMI FOLLOW UP PLAN [employer] [facility] [code = BMI FOLLOW UP of Med icine PLAN] Future Scheduled MEDICARE AWV [facility] [employer] Test (Initial) [code = of Medicin e MEDICARE AWV (Initial)] Future Scheduled FLU VACCINE > 6 [facility] Test MONTHS [code = FLU of Medici ne VACCINE > 6 MONTHS] Future Scheduled FALL SCREEN [code = [employer] FALL SCREEN] of Medicine Future Scheduled TETANUS SHOT (ADULT) [employer] [facility] [code = TETANUS SHOT of Medi cine (ADULT)] Future Scheduled MEDICARE AWV [facility] [employer] Test (Initial) [code = of Medicin e MEDICARE AWV (Initial)] Future Scheduled FLU VACCINE > 6 [facility] Test MONTHS [code = FLU of Medici ne VACCINE > 6 MONTHS] Future Scheduled BMI FOLLOW UP PLAN [employer] Test [code = BMI FOLLOW UP of Med icine PLAN] Future Scheduled FALL SCREEN [code = [employer] FALL SCREEN] of Medicine Future Scheduled BASIC METABOLIC PANEL Ordered: [facility] [place] [employer] Test [code = 83333-6] 04/16/2020 of Medicine Future Scheduled URIC ACID [code = Ordered: [facility] Test 3084-1] 04/16/2020 of Medicine Future Scheduled CALCIUM IONIZED [code Ordered: [facility] [place] [employer] Test = 06288-6] 04/16/2020 of Medicine Future Scheduled PTH,INTACT,WITH Ordered: [facility] C [facility]lege Test CALCIUM,PO4,CREAT 04/16/2020 of Medicin e [code = NOCPT] Future Scheduled TETANUS SHOT (ADULT) [employer] [facility] [code = TETANUS SHOT of Medi cine (ADULT)] Future Scheduled ZOSTER VACCINE (1 of [employer] 2) [code = ZOSTER of Medicin e VACCINE (1 of 2)] Future Scheduled MEDICARE AWV [facility] [employer] Test (Initial) [code = of Medicin e MEDICARE AWV (Initial)] Future Scheduled FLU VACCINE > 6 [facility] Test MONTHS [code = FLU of Medici ne VACCINE > 6 MONTHS] Future Scheduled BMI FOLLOW UP PLAN [employer] Test [code = BMI FOLLOW UP of Med icine PLAN] Future Scheduled FALL SCREEN [code = [employer] FALL SCREEN] of Medicine Future Scheduled TETANUS SHOT (ADULT) [employer] [facility] [code = TETANUS SHOT of Medi cine (ADULT)] Future Scheduled ZOSTER VACCINE (1 of [employer] [facility] 2) [code = ZOSTER of Medicin e VACCINE (1 of 2)] Future Scheduled MEDICARE AWV [facility] [employer] Test (Initial) [code = of Medicin e MEDICARE AWV (Initial)] Future Scheduled FLU VACCINE > 6 [facility] C ollege Test MONTHS [code = FLU of Medici ne VACCINE > 6 MONTHS] Future Scheduled BMI FOLLOW UP PLAN [employer] Test [code = BMI FOLLOW UP of Med icine PLAN] Future Scheduled FALL SCREEN [code = [employer] FALL SCREEN] of Medicine Future Scheduled TETANUS SHOT (ADULT) [employer] [facility] [code = TETANUS SHOT of Medi cine (ADULT)] Future [facility] [code = HEPATITIS C of Medic ine SCREENING] Future Scheduled ZOSTER VACCINE (1 of [employer] [facility] 2) [code = ZOSTER of Medicin e VACCINE (1 of 2)] Future Scheduled MEDICARE AWV [facility] [employer] Test (Initial) [code = of Medicin e MEDICARE AWV (Initial)] Future Scheduled FLU VACCINE > 6 [facility] C [facility]lege Test MONTHS [code = FLU of Medici ne VACCINE > 6 MONTHS] Future Scheduled BMI FOLLOW UP PLAN [employer] Test [code = BMI FOLLOW UP of Med icine PLAN] Future Scheduled FALL SCREEN [code = [employer] FALL SCREEN] of Medicine Future Scheduled BLOOD AEROBIC CULTURE Ordered: [employer] [facility] [code = NOCPT] 06/13/2020 of Medicine Future Scheduled BLOOD ANAEROBIC Ordered: [facility]lege Test CULTURE([facility]) [code = 06/13/2020 of Medi cine NOCPT] Future Scheduled 5 HIAA QUANT,24HR Ordered: [facility] Test URINE [code = 53649] 06/13/2020 of Medi cine Future Scheduled TETANUS SHOT (ADULT) [employer] [facility] [code = TETANUS SHOT of Medi cine (ADULT)] Future Scheduled HEPATITIS C SCREENING [employer] [facility] [code = HEPATITIS C of Medic ine SCREENING] Future Scheduled ZOSTER VACCINE (1 of [employer] [facility] 2) [code = ZOSTER of Medicin e VACCINE (1 of 2)] Future Scheduled MEDICARE AWV [facility] (Initial) [code = of Medicin e MEDICARE AWV (Initial)] Future Scheduled FLU VACCINE > 6 [facility] Test MONTHS [code = FLU of Medici ne VACCINE > 6 MONTHS] Future Scheduled BMI FOLLOW UP PLAN [employer] [code = BMI FOLLOW UP of Med icine PLAN] Future Scheduled FALL SCREEN [code = [employer] FALL SCREEN] of Medicine Future Scheduled TETANUS SHOT (ADULT) [employer] [code = TETANUS SHOT of Medi cine (ADULT)] Future Scheduled HEPATITIS C SCREENING [employer] [code = HEPATITIS C of Medic ine SCREENING] Future Scheduled ZOSTER VACCINE (1 of [employer] 2) [code = ZOSTER of Medicin e VACCINE (1 of 2)] Future Scheduled MEDICARE AWV [facility] [employer] [facility] (Initial) [code = of Medicin e MEDICARE AWV (Initial)] Future Scheduled FLU VACCINE > 6 [facility] Test MONTHS [code = FLU of Medici ne VACCINE > 6 MONTHS] Future Scheduled BMI FOLLOW UP PLAN [employer] [code = BMI FOLLOW UP of Med icine PLAN] Future Scheduled FALL SCREEN [code = [employer] FALL SCREEN] of Medicine Future Scheduled TETANUS SHOT (ADULT) [employer] [code = TETANUS SHOT of Medi cine (ADULT)] Future Scheduled HEPATITIS C SCREENING [employer] [code = HEPATITIS C of Medic ine SCREENING] Future Scheduled ZOSTER VACCINE (1 of [employer] 2) [code = ZOSTER of Medicin e VACCINE (1 of 2)] Future Scheduled MEDICARE AWV [facility] [employer] Test (Initial) [code = of Medicin e MEDICARE AWV (Initial)] Future Scheduled FLU VACCINE > 6 [facility] C ollege Test MONTHS [code = FLU of Medici ne VACCINE > 6 MONTHS] Future Scheduled BMI FOLLOW UP PLAN [employer] [code = BMI FOLLOW UP of Med icine PLAN] Future Scheduled FALL SCREEN [code = [employer] FALL SCREEN] of Medicine Future Scheduled TETANUS SHOT (ADULT) [employer] [code = TETANUS SHOT of Medi cine (ADULT)] Future Scheduled HEPATITIS C SCREENING [employer] [code = HEPATITIS C of Medic ine SCREENING] Future Scheduled ZOSTER VACCINE (1 of [employer] 2) [code = ZOSTER of Medicin e VACCINE (1 of 2)] Future Scheduled MEDICARE AWV [facility] [employer] Test (Initial) [code = of Medicin e MEDICARE AWV (Initial)] Future Scheduled FLU VACCINE > 6 [facility] [employer] [facility] MONTHS [code = FLU of Medici ne VACCINE > 6 MONTHS] Future Scheduled BMI FOLLOW UP PLAN [employer] [code = BMI FOLLOW UP of Med icine PLAN] Future Scheduled FALL SCREEN [code = [employer] FALL SCREEN] of Medicine Future Scheduled TETANUS SHOT (ADULT) [employer] [code = TETANUS SHOT of Medi cine (ADULT)] Future Scheduled HEPATITIS C SCREENING [employer] [code = HEPATITIS C of Medic ine SCREENING] Future Scheduled ZOSTER VACCINE (1 of [employer] Test 2) [code = ZOSTER of Medicin e VACCINE (1 of 2)] Future Scheduled MEDICARE AWV [facility] [employer] Test (Initial) [code = of Medicin e MEDICARE AWV (Initial)] Future Scheduled FLU VACCINE > 6 [facility] [employer] Test MONTHS [code = FLU of Medici ne VACCINE > 6 MONTHS] Future Scheduled FALL SCREEN [code = [employer] FALL SCREEN] of Medicine Future Scheduled COVID-19 Vaccine [facility] [employer] Test Evaluation [code = of Medici ne COVID-19 Vaccine Evaluation] Future Scheduled TETANUS SHOT (ADULT) [employer] [code = TETANUS SHOT of Medi cine (ADULT)] Future Scheduled HEPATITIS C SCREENING [employer] [code = HEPATITIS C of Medic ine SCREENING] Future Scheduled ZOSTER VACCINE (1 of [employer] Test 2) [code = ZOSTER of Medicin e VACCINE (1 of 2)] Future Scheduled MEDICARE AWV [facility] [employer] Test (Initial) [code = of Medicin e MEDICARE AWV (Initial)] Future Scheduled FLU VACCINE > 6 [facility] [employer] Test MONTHS [code = FLU of Medici ne VACCINE > 6 MONTHS] Future Scheduled FALL SCREEN [code = [employer] FALL SCREEN] of Medicine Future Scheduled TETANUS SHOT (ADULT) [employer] [code = TETANUS SHOT of Medi cine (ADULT)] Future Scheduled HEPATITIS C SCREENING [employer] [code = HEPATITIS C of Medic ine SCREENING] Future Scheduled ZOSTER VACCINE (1 of [employer] 2) [code = ZOSTER of Medicin e VACCINE (1 of 2)] Future Scheduled MEDICARE AWV [facility] [employer] Test (Initial) [code = of Medicin e MEDICARE AWV (Initial)] Future Scheduled FLU VACCINE > 6 [facility] [employer] Test MONTHS [code = FLU of Medici ne VACCINE > 6 MONTHS] Future Scheduled COVID-19 Vaccine (2 [employer] of 2 - Moderna of Medicine series) [code = COVID-19 Vaccine (2 of 2 - Moderna series)] Future Scheduled FALL SCREEN [code = [employer] FALL SCREEN] of Medicine Future Scheduled TETANUS SHOT (ADULT) [employer] [code = TETANUS SHOT of Medi cine (ADULT)] Future Scheduled HEPATITIS C SCREENING [employer] [code = HEPATITIS C of Medic ine SCREENING] Future Scheduled ZOSTER VACCINE (1 of [employer] 2) [code = ZOSTER of Medicin e VACCINE (1 of 2)] Future Scheduled MEDICARE AWV [facility] [employer] Test (Initial) [code = of Medicin e MEDICARE AWV (Initial)] Future Scheduled FLU VACCINE > 6 [facility] C ollege Test MONTHS [code = FLU of Medici ne VACCINE > 6 MONTHS] Future Scheduled COVID-19 Vaccine (2 [employer] of 2 - Moderna of Medicine series) [code = COVID-19 Vaccine (2 of 2 - Moderna series)] Future Scheduled FALL SCREEN [code = [employer] FALL SCREEN] of Medicine Future Scheduled TETANUS SHOT (ADULT) [employer] [code = TETANUS SHOT of Medi cine (ADULT)] Future Scheduled Hepatitis C screening [employer] Test (procedure) [code = of Medic ine 570153116] Future Scheduled ZOSTER VACCINE (1 of [employer] 2) [code = ZOSTER of Medicin e VACCINE (1 of 2)] Future Scheduled MEDICARE AWV [facility] [employer] (Initial) [code = of Medicin e MEDICARE AWV (Initial)] Future Scheduled FLU VACCINE > 6 [facility] [employer] Test MONTHS [code = FLU of Medici ne VACCINE > 6 MONTHS] Future Scheduled FALL SCREEN [code = [employer] FALL SCREEN] of Medicine Future Scheduled TETANUS SHOT (ADULT) [employer] [code = TETANUS SHOT of Medi cine (ADULT)] Future Scheduled Hepatitis C screening [employer] Test (procedure) [code = of Medic ine [id number]] Future Scheduled ZOSTER VACCINE (1 of [employer] Test 2) [code = ZOSTER of Medicin e VACCINE (1 of 2)] Future Scheduled MEDICARE AWV [employer] (Initial) [code = of Medicin e MEDICARE AWV (Initial)] Future Scheduled FLU VACCINE > 6 [facility] [employer] Test MONTHS [code = FLU of Medici ne VACCINE > 6 MONTHS] Future Scheduled FALL SCREEN [code = [employer] FALL SCREEN] of Medicine Future Scheduled BMI FOLLOW UP PLAN [employer] [code = BMI FOLLOW UP of Med icine PLAN] Future Scheduled TETANUS SHOT (ADULT) [employer] [code = TETANUS SHOT of Medi cine (ADULT)] Future Scheduled MEDICARE AWV [facility] [employer] (Initial) [code = of Medicin e MEDICARE AWV (Initial)] Future Scheduled FALL SCREEN [code = [employer] FALL SCREEN] of Medicine Future Scheduled PNEUMOVAX >=65 [facility] [employer] Test (PPSV23) [code = of Medicine PNEUMOVAX >=65 (PPSV23)] Future Scheduled PREVNAR >= 65 (PCV13) [employer] [code = PREVNAR >= 65 of Med icine (PCV13)] Future Scheduled FLU VACCINE > 6 [facility] C ollege Test MONTHS [code = FLU of Medici ne VACCINE > 6 MONTHS] Future Scheduled TETANUS SHOT (ADULT) [employer] [code = TETANUS SHOT of Medi cine (ADULT)] Future Scheduled BMI FOLLOW UP PLAN [employer] [code = BMI FOLLOW UP of Med icine PLAN] Future Scheduled MEDICARE AWV [facility] [employer] (Initial) [code = of Medicin e MEDICARE AWV (Initial)] Future Scheduled FALL SCREEN [code = [employer] FALL SCREEN] of Medicine Future Scheduled PNEUMOVAX >=65 [facility] [employer] Test (PPSV23) [code = of Medicine PNEUMOVAX >=65 (PPSV23)] Future Scheduled PREVNAR >= 65 (PCV13) [employer] [code = PREVNAR >= 65 of Med icine (PCV13)] Future Scheduled FLU VACCINE > 6 [facility] [employer] Test MONTHS [code = FLU of Medici ne VACCINE > 6 MONTHS] Future Scheduled NOCTURNAL OXIMETRY - 1 Occurrences [employer] PFT [code = 19736781] starting of Med icine 05/07/2020 until 05/07/2021 Future Scheduled SIX MINUTE WALK TEST 1 Occurrences [employer] Test [code = 58465] starting of Medicine 05/07/2020 until 05/07/2021 Future Scheduled NOCTURNAL OXIMETRY - 1 Occurrences [employer] PFT [code = 00399387] starting of Med icine 02/23/2020 until 02/22/[address] CHEST HIGH 1 Occurrences [facility] [employer] Test RESOLUTION WO starting of Medicine CONTRAST [code = 01/19/2020 until 85945-4] 01/18/2021 Future Scheduled SIX MINUTE WALK TEST 1 [employer]ur[employer] [code = 19290] starting of Medicine 01/19/2020 until 01/18/2021 Future Scheduled COMPLETE PFT WITH 1 [employer]ur[employer] BRONCHODILATOR [code starting of Medi cine = 73366] 01/19/2020 until 01/18/2021 Future Scheduled NOVEL 2019 1 Occurrences [facility] [employer] Test CORONAVIRUS(COVID-19) starting of Med icine ,CARL [code = U0004] 01/19/2020 until 07/21/2020 Encounters Start End Encounter Admission Attending Care Care Encounter Source Date/Time Date/Time Type Type Clinicians Facility Department ID 2021-06-12 Inpatient PANCHO GILBERT [facility] Surgery [id number] [facility] 12:14:11 2021-06-11 Outpatient TERRI [facility] Surgery [id number] [facility] 19:58:07 NIMESH 2021-06-11 Outpatient AURELIANO WAGNER [facility] Surgery [id number] [facility] 13:40:59 2021-06-11 Outpatient MARY OCASIO [facility] Surgery [id number] [facility] 13:17:41 NADINE 2020-01-[address] [facility] [id number] [facility] 01:12:00 [id number] 2021-08-05 2021-08-05 Outpatient [facility] [id number] [facility] 13:35:51 23:59:00 Ronal Medicclare augustine 2021-07-30 2021-07-[address] [facility] [id number] [facility] 11:37:11 23:59:00 TANNAZ 2021-07-30 2021-07-30 Outpatient [facility] [facility] [id number] [facility] 11:37:04 23:59:00 TANNAZ 2021-07-25 2021-07-25 Office BAKARI OCASIO 1.2.840.114 [id number] [facility] 12:50:38 12:50:38 Visit NADINE AMBULATOR 350.1.13.21 College Y 0.2.7.2.686 of [id number] Medi kiran 300 e 2021-07-25 2021-07-25 Outpatient BCM [facility] [id number] [facility] 12:50:16 12:50:16 [employer]in [employer] 2021-07-08 2021-07-08 Outpatient BCM B[facility] [id number] [facility] 14:12:21 23:59:00 [employer] 2021-06-10 2021-06-10 Outpatient BCM [facility] [id number] [facility] 13:45:58 23:59:00 [employer] 2021-06-05 2021-06-05 Outpatient NICHOLE, [facility] BC [id number] [facility] 13:38:26 16:29:22 [employer] 2021-06-05 2021-06-05 Outpatient SHAIB, [place] [id number] [facility] 13:38:04 16:28:38 [employer] 2021-05-23 2021-05-23 Office ROSE CERVANTES 1.2.840.114 [id number] [facility] 11:07:33 12:34:22 Visit MCCLELLAN AMBULATOR 350.1.13.21 College Y 0.2.7.2.686 of [id number] Medi kiran 315 e 2021-05-14 2021-05-14 Outpatient BCM [facility] [id number] [facility] 13:19:23 23:59:00 [employer] 2021-05-07 2021-05-07 Office BAKARI Bowser 1.2.840.114 [id number] [facility] 13:06:27 13:16:27 Visit Gilles AMBULATOR 350.1.13.21 College P Y 0.2.7.2.686 of [id number] Medi kiran 300 e 2021-04-26 2021-04-26 Outpatient BCM BC [id number] [facility] 14:25:38 15:26:25 [employer]in [employer] 2021-04-15 2021-04-15 Outpatient BCM BCM [id number] [facility] 13:06:06 23:59:00 [employer] 2021-04-03 2021-04-03 Outpatient TERRI [facility] [id number] [place] 00:00:00 00:00:00 NIMESH [address] 2021-03-18 2021-03-18 Outpatient BCM BC [id number] [facility] 13:06:04 23:59:00 [employer] 2021-03-01 2021-03-01 [facility] 1.2.840.114 [id number] [facility] 10:08:32 10:48:10 Visit Lucia Colemanr 350.1.13.21 Co llege 0.2.7.2.686 of [id number] [facility] kiran 530 e 2021-02-06 2021-02-06 Outpatient SELENE OWUSU [facility] [id number] [facility] 00:00:00 00:00:00 [facility] 2021-02-06 2021-02-06 Outpatient SELENE OWUSU [facility] [id number] [facility] 00:00:00 00:00:00 [facility] 2021-01-21 2021-01-21 Office BAKARI Ocasio 1.2.840.114 [id number] [facility] 13:12:57 13:48:36 Visit Nadine Contreras AMBULATOR 350.1.13.21 College Y 0.2.7.2.686 of [id number] Medi kiran 300 e 2020-12-17 2020-12-17 Office PANCHO GILBERT 1.2.840.114 [id number] [facility] 14:23:27 16:27:45 Visit AMBULATOR 350.1.13.21 College Y 0.2.7.2.686 of [id number] Medi kiran 810 e 2020-11-15 2020-11-15 Office Aureliano Wagner 1.2.840.114 [id number] [facility] 14:09:21 14:39:21 Visit Koki AMBULATOR 350.1.13.21 College Y 0.2.7.2.686 of [id number] Medi kiran 380 e 2020-10-18 2020-10-18 Office BAKARI Ocasio 1.2.840.114 [id number] [facility] 14:49:09 16:23:56 Visit Nadine Contreras AMBULATOR 350.1.13.21 College Y 0.2.7.2.686 of [id number] Medi kiran 300 e 2020-10-17 2020-10-17 Office [facility] 1.2.840.114 [id number] [facility] 10:34:49 12:12:36 Visit [facility] Andriy 350.1.13.21 Co llege 0.2.7.2.686 of [id number] Medi kiran 530 e 2020-10-17 2020-10-[address] [facility] [id number] [facility] 00:00:00 00:00:00 [facility] 2020-10-08 2020-10-08 [facility] [id number] [place] 00:00:00 00:00:00 NIMESH [address] 2020-10-04 2020-10-[address] [facility] [id number] SLE 00:00:00 00:00:00 [facility] 2020-10-01 2020-10-[address] [facility] [id number] SLE 00:00:00 00:00:00 [facility] 2020-09-21 2020-09-21 Office BAKARI Bowser 1.2.840.114 [id number] [facility] 12:36:19 12:46:19 Visit Gilles AMBULATOR 350.1.13.21 College P Y 0.2.7.2.686 of [id number] Medi kiran 300 e 2020-08-13 2020-08-13 Office TaylorLee arnoldan [facility] 1.2.840.114 [id number] [facility] 12:49:33 16:41:38 Visit AMBULATOR 350.1.13.21 College Y 0.2.7.2.686 of [id number] [facility] kiran 810 e 2020-08-07 2020-08-07 Office BowserROSE 1.2.840.[id number] [place] [address] 11:17:32 11:37:32 Visit Christopher AMBULATOR 350.1.13.21 College P Y 0.2.7.2.686 of [id number] [facility] kiran 300 e 2020-08-06 2020-08-06 Office FishAureliano [facility] 1.2.840.114 [id number] [facility] 12:43:52 13:13:52 Visit Koki AMBULATOR 350.1.13.21 College Y 0.2.7.2.686 of [id number] [facility] kiran 380 e 2020-07-23 2020-07-23 Outpatient EL [facility] [id number] [facility] 00:00:00 00:00:00 2020-07-20 2020-07-20 Outpatient SLEH [facility] [id number] [facility] 00:00:00 00:00:00 2020-07-20 2020-07-20 Outpatient SLEH [facility] [id number] [facility] 00:00:00 00:00:00 2020-07-20 2020-07-20 Outpatient EL [facility] [id number] [facility] 00:00:00 00:00:00 2020-07-20 2020-07-20 Outpatient EL [facility] [id number] [facility] 00:00:00 00:00:00 2020-06-18 2020-06-18 Office Pancho Gilbert [facility] 1.2.840.114 [id number] [facility] 07:42:48 09:06:10 Visit AMBULATOR 350.1.13.21 College Y 0.2.7.2.686 of [id number] [facility] kiran 810 e 2020-06-18 2020-06-18 Outpatient EL CLIFFODR, SLE [facility] [id number] [facility] 00:00:00 00:00:00 GRACIA 2020-06-13 2020-06-13 Office [facility] 1.2.840.114 [id number] [facility] 10:58:09 13:45:09 Visit Lucia Andriy 350.1.13.21 Co llege 0.2.7.2.686 of [id number] Medi kiran 530 e 2020-06-11 2020-06-11 Office BAKARI Ocasio 1.2.840.114 [id number] [facility] 13:35:47 14:53:00 Visit Nadine Ben AMBULATOR 350.1.13.21 College Y 0.2.7.2.686 of [id number] Medi kiran 300 e 2020-06-08 2020-06-08 Outpatient FRANCOISE SLE SLE [id number] [facility] 00:00:00 00:00:00 [facility] 2020-06-08 2020-06-08 Outpatient ERNESTOAKBAR SLE SLE [id number] [facility] 00:00:00 00:00:00 [facility] 2020-05-29 2020-05-29 Outpatient FRANCOISE SLE SLE [id number] [facility] 00:00:00 00:00:00 [facility] 2020-05-29 2020-05-29 Outpatient FRANCOISE SLE SLE [id number] [facility] 00:00:00 00:00:00 [facility] 2020-05-07 2020-05-07 Office Aureliano Wagner Kathleen 1.2.840.114 [id number] [facility] 14:55:45 16:47:03 Visit Koki AMBULATOR 350.1.13.21 College Y 0.2.7.2.686 of [id number] Medi kiran 380 e 2020-04-16 2020-04-16 Office BAKARI Ocasio 1.2.840.114 [id number] [facility] 12:40:09 14:26:43 Visit Nadine Contreras AMBULATOR 350.1.13.21 College Y 0.2.7.2.686 of [id number] Medi kiran 300 e 2020-03-05 2020-03-05 Office Pancho Gilbert 1.2.840.114 [id number] [facility] 10:46:39 14:29:26 Visit AMBULATOR 350.1.13.21 College Y 0.2.7.2.686 of [id number] [facility] 810 e 2020-03-05 2020-03-05 Office [facility] 1.2.840.114 [id number] [facility] 07:55:50 08:25:50 Visit Tannaz Andriy 350.1.13.21 Co llege 0.2.7.2.686 of [id number] [facility] 530 e 2020-03-02 2020-03-02 Outpatient POLY CASTELAN [facility] [id number] [facility] 00:00:00 00:00:00 [facility] 2020-02-23 2020-02-23 Office Aureliano Wagner 1.2.840.114 [id number] [facility] 12:33:37 13:03:37 Visit Koki AMBULATOR 350.1.13.21 College Y 0.2.7.2.686 of [id number] [facility] 380 e 2020-02-16 2020-02-16 Outpatient EL [facility] [id number] [facility] 00:00:00 00:00:00 2020-02-16 2020-02-16 Outpatient EL [facility] [id number] [facility] 00:00:00 00:00:00 2020-02-13 2020-02-13 Office Francoise [facility] 1.2.840.114 [id number] [facility] 13:30:45 16:22:39 Visit Tannaz Andriy 350.1.13.21 Co llege 0.2.7.2.686 of [id number] [facility] 530 e 2020-01-24 2020-01-24 Outpatient EL [facility] [id number] [facility] 00:00:00 00:00:00 2020-01-20 2020-01-20 Outpatient AURELIANO FLORES [facility] [id number] [facility] 00:00:00 00:00:00 2020-01-19 2020-01-19 Office Aureliano Wagner 1.2.840.114 [id number] 13:41:30 14:41:30 Visit Koki AMBULATOR 350.1.13.21 Y 0.2.7.2.686 [id number] 2020-01-19 2020-01-19 Office Aureliano Wagner 1.2.840.114 [id number] [facility] 13:41:30 14:41:30 Visit Koki AMBULATOR 350.1.13.21 College Y 0.2.7.2.686 of [id number] [facility] 380 e 2019-11-16 2019-11-16 Outpatient SLEH SLEH [id number] [facility] 15:31:00 15:31:00 [id number] 2018-11-30 2018-11-30 Outpatient MHIE MHIE [id number] [facility] 13:00:00 13:00:00 01 l Matthias 2018-10-01 2018-10-03 Phone nullFlavo MNA [id number] [facility] 20:05:00 05:59:59 Message r Neurology 01 l Lacey Rizzo 2018-09-02 2018-09-04 Outside nullFlavo MNA [id number] [facility] 22:32:00 05:59:59 Medical r Neurology 00 l Records Lacey Rizzo 2018-06-02 2018-06-02 Outpatient MHIE IE [id number] [facility]oria 08:45:00 08:45:00 00 zohra Rizzo Results Test Description Test Time Test Comments Results Result [facility] e Comments CT, CHEST, WITH 2021-07-31 Unlisted Reason IV CONTRAST 10:20:00 for Exam - Click Yes and [facility] Enter Reason [facility] - MEDICAL Below->Yes CENTERName: [facility], Unlisted Reason CAS RAY : for 1945 Sex: Exam->[id number].[id number] M FINAL REPORT EXAM: CT CHEST WITH CONTRAST AND CT ABDOMEN AND PELVIS WITHOUT AND WITH CONTRASTINDICATION: Malignant carcinoid tumor of the lung.COMPARISON: CT chest abdomen and pelvis from 02/06/2021. TECHNIQUE: Chest with contrast and CT abdomen and pelvis were scanned utilizing a multidetector helical scanner from the lung apex to the ischial tuberosities before and after administration of IV contrast. Coronal and sagittal reformations were obtained. Routine protocol was performed. Scan was performed when during portal venous phase. IV CONTRAST: 150 mL of Omnipaque 300ORAL CONTRAST: ReadicatRADIATION DOSE: Total DLP: 4 mGy*cmESTIMATED EFFECTIVE DOSE: 2023 x 0.015 mSvCOMPLICATIONS: None FINDINGS: LUNGS AND AIRWAYS: There is a noncalcified pulmonary nodule (0.4 cm; series 4 image 72) in the right lower lobe, superior segment. Stable nodular densities measuring up to 0.25 cm (image 49) in the right upper lobe, anterior segment. Stable noncalcified pulmonary nodule (0.4 cm; image 62) in the anterior segment of the right upper lobe. No new pulmonary nodules or mass. Qualitatively moderate centrilobular pulmonary emphysema. Mild to moderate cylindrical bronchiectasis with mucus plugging in the right middle lobe, medial segment. There is mild atelectatic changes/scarring in the inferior lingula and basilar segments of the left lower lobe. Minimal secretions identified in the posterior trachea at the level of the thyroid gland. Otherwise, Central airways are unremarkable. PLEURA: The pleural spaces are clear. HEART AND MEDIASTINUM: The thyroid gland is normal. Stable prominent mediastinal lymph nodes measuring up to 1.7 cm x 0.8 cm in the right upper and lower paratracheal space. No additional mediastinal, hilar or axillary lymphadenopathy. No cardiomegaly. There are diffuse calcified plaques in the left main, proximal and mid LAD, LCx and proximal, mid and distal RCA.No pericardial effusion. The pulmonary arteries are within normal limits. No filling defects in the central pulmonary arteries. HEPATOBILIARY: Several tiny hypodensities in the liver, unchanged in comparison to prior CT, probably representing hepatic cysts. Nonvisualization of the hypervascular foci seen on prior CT. No biliary ductal dilation. GALLBLADDER: Surgically absent. SPLEEN: No splenomegaly. Small accessory spleen in the posterior perisplenic space. PANCREAS: Diffusely atrophic pancreas. No focal masses or ductal dilatation. ADRENALS: No adrenal nodules KIDNEYS/URETERS: Kidneys enhance symmetrically. No hydronephrosis. No cystic or solid mass lesions. Nonobstructive calculus measuring 3 mm in the interpolar calyx of the left kidney. GI TRACT: No abnormal distention, wall thickening, or evidence of bowel obstruction. Appendix is normal. PELVIC ORGANS/BLADDER: Urinary bladder is unremarkable. Prostate gland is surgically absent. LYMPH NODES: No lymphadenopathy. VESSELS: Moderate to severe calcified and noncalcified plaques identified in the abdominal aorta, and iliac arteries. The inferior vena cava and iliac veins are unremarkable. PERITONEUM / RETROPERITONEUM: No free air or fluid. BONES: Multilevel degenerative changes in the thoracic and lumbar vertebrae. Status post posterior interbody fusion and stabilization of L4-S1 vertebrae. No aggressive lytic or sclerotic lesions identified in the visualized bones. SOFT TISSUES: Multiple subcutaneous injection granulomas in both gluteal regions. There is a neurostimulator in the posterior left lower chest wall. Multiple surgical clips in the right inguinal region. IMPRESSION: 1. Stable pulmonary nodules. No new pulmonary nodule or mass. 2. Qualitatively moderate centrilobular pulmonary emphysema. 3. Mild to moderate cylindrical bronchiectasis with mucus plugging in the medial segment of the right middle lobe. 4. Coronary artery disease. Extensive calcified plaques in the left main, LAD, LCx and RCA. 5. Unchanged fluid attenuation hypodensities in the liver likely representing hepatic cysts. 6. Nonvisualization of the hyperenhancing liver foci seen on prior CT. 7. Nonobstructive calculus in the interpolar calyx of the left kidney. Signed: Earl Guerrast. [facility] Verified Date/Time: 07/31/2021 10:20:24 Reading Location: [facility] Reading Room [address] [place] [address] , ABDOMEN 2021-07-31 Unlisted Reason 10:20:00 for Exam - Click Yes and [facility] Enter Reason [facility] - MEDICAL Below->YesUnlis CENTERName: suly DENNY Reason for CAS RAY : Exam->[id number] 1945 Sex: ease M specify:->NONEW ill this FINAL procedure REPORT PATIENT ID: require oral [id number] EXAM: CT CHEST contrast?->Yes WITH CONTRAST AND CT ABDOMEN AND PELVIS WITHOUT AND WITH CONTRASTINDICATION: Malignant carcinoid tumor of the lung.COMPARISON: CT chest abdomen and pelvis from 02/06/2021. TECHNIQUE: Chest with contrast and CT abdomen and pelvis were scanned utilizing a multidetector helical scanner from the lung apex to the ischial tuberosities before and after administration of IV contrast. Coronal and sagittal reformations were obtained. Routine protocol was performed. Scan was performed when during portal venous phase. IV CONTRAST: 150 mL of Omnipaque 300ORAL CONTRAST: ReadicatRADIATION DOSE: Total DLP: 4 mGy*cmESTIMATED EFFECTIVE DOSE: 2023 x 0.015 mSvCOMPLICATIONS: None FINDINGS: LUNGS AND AIRWAYS: There is a noncalcified pulmonary nodule (0.4 cm; series 4 image 72) in the right lower lobe, superior segment. Stable nodular densities measuring up to 0.25 cm (image 49) in the right upper lobe, anterior segment. Stable noncalcified pulmonary nodule (0.4 cm; image 62) in the anterior segment of the right upper lobe. No new pulmonary nodules or mass. Qualitatively moderate centrilobular pulmonary emphysema. Mild to moderate cylindrical bronchiectasis with mucus plugging in the right middle lobe, medial segment. There is mild atelectatic changes/scarring in the inferior lingula and basilar segments of the left lower lobe. Minimal secretions identified in the posterior trachea at the level of the thyroid gland. Otherwise, Central airways are unremarkable. PLEURA: The pleural spaces are clear. HEART AND MEDIASTINUM: The thyroid gland is normal. Stable prominent mediastinal lymph nodes measuring up to 1.7 cm x 0.8 cm in the right upper and lower paratracheal space. No additional mediastinal, hilar or axillary lymphadenopathy. No cardiomegaly. There are diffuse calcified plaques in the left main, proximal and mid LAD, LCx and proximal, mid and distal RCA.No pericardial effusion. The pulmonary arteries are within normal limits. No filling defects in the central pulmonary arteries. HEPATOBILIARY: Several tiny hypodensities in the liver, unchanged in comparison to prior CT, probably representing hepatic cysts. Nonvisualization of the hypervascular foci seen on prior CT. No biliary ductal dilation. GALLBLADDER: Surgically absent. SPLEEN: No splenomegaly. Small accessory spleen in the posterior perisplenic space. PANCREAS: Diffusely atrophic pancreas. No focal masses or ductal dilatation. ADRENALS: No adrenal nodules KIDNEYS/URETERS: Kidneys enhance symmetrically. No hydronephrosis. No cystic or solid mass lesions. Nonobstructive calculus measuring 3 mm in the interpolar calyx of the left kidney. GI TRACT: No abnormal distention, wall thickening, or evidence of bowel obstruction. Appendix is normal. PELVIC ORGANS/BLADDER: Urinary bladder is unremarkable. Prostate gland is surgically absent. LYMPH NODES: No lymphadenopathy. VESSELS: Moderate to severe calcified and noncalcified plaques identified in the abdominal aorta, and iliac arteries. The inferior vena cava and iliac veins are unremarkable. PERITONEUM / RETROPERITONEUM: No free air or fluid. BONES: Multilevel degenerative changes in the thoracic and lumbar vertebrae. Status post posterior interbody fusion and stabilization of L4-S1 vertebrae. No aggressive lytic or sclerotic lesions identified in the visualized bones. SOFT TISSUES: Multiple subcutaneous injection granulomas in both gluteal regions. There is a neurostimulator in the posterior left lower chest wall. Multiple surgical clips in the right inguinal region. IMPRESSION: 1. Stable pulmonary nodules. No new pulmonary nodule or mass. 2. Qualitatively moderate centrilobular pulmonary emphysema. 3. Mild to moderate cylindrical bronchiectasis with mucus plugging in the medial segment of the right middle lobe. 4. Coronary artery disease. Extensive calcified plaques in the left main, LAD, LCx and RCA. 5. Unchanged fluid attenuation hypodensities in the liver likely representing hepatic cysts. 6. Nonvisualization of the hyperenhancing liver foci seen on prior CT. 7. Nonobstructive calculus in the interpolar calyx of the left kidney. Signed: Earl Guerra Verified Date/Time: 07/31/2021 10:20:24 Reading Location: [facility] Reading Room 3 - 1.625 -CREATININE 2021-07-30 12:35:16 Test Item Value Reference Range Interpretation Comme nts POC-CREATININE (BEAKER) 0.8 mg/dL 0.6-1.3 : TE STED AT [facility] 7200 (test code = 1859) [facility] [address]: Consumer Education Specialist /Coat Joiner ID = [id number] for ENEIDA ROBERTSON POC-EGFR (BEAKER) (test 94 mL/min/1.73M2 code = 1860) SARS-CoV-2 (COVID-19) RNA [Presence] in Respiratory specimen by CARL with probe [id number] 21:44:48 Test Item Value Reference Range Interpretation Comments SARS-CoV-2 (COVID-19) RNA Not detected Not-Detected [Presence] in Respiratory specimen by CARL with probe detection (test code = 30382-3) Whether patient is employed in a healthcare setting (test code = 41979-0) Whether the patient has symptoms related to condition of interest (test code = 03252-9) Patient was hospitalized because of this condition (test code = 20826-0) Whether the patient was admitted to intensive care unit (ICU) for condition of interest (test code = 74346-0) Whether patient resides in a congregate care setting (test code = 65388-2) CT, CHEST, WITH IV [id number] 14:16:00Unlisted Reason for Exam - Click Yes and Enter Reason Below->YesUnlisted Reason for Exam->Malignant carcinoid tumor of lung [facility] : 1945 Sex: MFINAL REPORT CT of the abdomen with and without contrast, CT of chest and pelvis with contrast Clinical History: Unlisted Reason for ExamMalignant carcinoid tumor oflung Technique: CT of the abdomen is performed without IV contrast, followed by CT of chest, abdomenand pelvis performed with intravenous contrast administration and without oral contrast administration. This exam was performed according to our departmental dose optimization program which includes automated exposure control, adjustment of the mA and/or kV according to patient's size and/or use of iterative reconstructive technique. Comparison Film: Chest CT dated October 04, 2020, CT dated October 17, 2020, June 08, 2020, January 20, 2020 Discussion: Visualized thyroid gland is normal. There are sc attered mediastinal lymph nodes, not significantly changed. Heart and pericardium are unremarkable. There is pulmonary emphysema. Somewhat nodular opacity in the medial aspect of the right middle lobe measures 1.2 x 1.7 cm, without significant interval change. Tree-in-bud nodules and mild bronchial wall thickening peripheral to this nodular opacity may reflect postobstructive infectious or inflammatory process, also unchanged. There is a linear band of scarring or atelectasis in the right lower lobe. No new mass or consolidation. Scattered small pulmonary nodules are stable, including a 5 mm nodulein right upper lobe. No effusion. Several tiny hypodensities in the liver are stable, likely representing cysts. There are two subcentimeter hypervascular nodular foci in the right lobe (series R1:2, images 27 and 29), indeterminate and may represent perfusion anomalies. Status post cholecystectomy. No significant biliary ductal dilatation. Spleen, pancreas, and adrenal glands are normal. Kidneys demonstrate no mass, hydronephrosis. There is a 3 mm nonobstructive stone within the left kidney. No bowel obstruction, or abnormal bowel wall thickening. There is mild colonic diverticulosis no evidence of acute diverticulitis. No pericecal inflammatory change. In the pelvis, bladder is unremarkable. Prostate gland is absent. There is moderate vascular calcification. No ascites, or lymphadenopathy. Bonystructures demonstrate degenerative changes, and decreased mineralization. There is intrathecal stimu lator device. No suspicious bony lesion is identified. Impression: Stable appearance of right middlelobe nodular opacity. Other pulmonary findings are also unchanged. Two subcentimeter hypervascular nodular foci in liver are nonspecific, and may represent perfusion anomalies. There are amenable to con tinued surveillance. 3 mm nonobstructive stone in the left kidney Signed: Callie Benavides VerifiedDate/Time: 02/06/2021 14:16:42 Reading Location: [address] Ortho Consult Reading Room CT, [id number] 14:16:00Unlisted Reason for Exam - Click Yes and Enter Reason Below->YesUnlisted Reason for Exam->Malignant carcinoid tumor of lungWill this procedure require oral contrast?->No[facility] : 1945 Sex: MFINAL REPORT CT of the abdomen with and without contrast, CT of chest and pelvis with contrast Clinical History: Unlisted Reason for ExamMalignant carcinoid tumor oflung Technique: CT of the abdomen is performed without IV contrast, followed by CT of chest, abdomenand pelvis performed with intravenous contrast administration and without oral contrast administration. This exam was performed according to our departmental dose optimization program which includes automated exposure control, adjustment of the mA and/or kV according to patient's size and/or use of iterative reconstructive technique. Comparison Film: Chest CT dated October 04, 2020, CT dated October 17, 2020, June 08, 2020, January 20, 2020 Discussion: Visualized thyroid gland is normal. There are scattered mediastinal lymph nodes, not significantly changed. Heart and pericardium are unremarkable. There is pulmonary emphysema. Somewhat nodular opacity in the medial aspect of the right middle lobe measures 1.2 x 1.7 cm, without significant interval change. Tree-in-bud nodules and mild bronchial wall thickening peripheral to this nodular opacity may reflect postobstructive infectious or inflammatory process, also unchanged. There is a linear band of scarring or atelectasis in the right lower lobe. No new mass or consolidation. Scattered small pulmonary nodules are stable, including a 5 mm nodulein right upper lobe. No effusion. Several tiny hypodensities in the liver are stable, likely representing cysts. There are two subcentimeter hypervascular nodular foci in the right lobe (series R1:2, images 27 and 29), indeterminate and may represent perfusion anomalies. Status post cholecystectomy. No significant biliary ductal dilatation. Spleen, pancreas, and adrenal glands are normal. Kidneys demonstrate no mass, hydronephrosis. There is a 3 mm nonobstructive stone within the left kidney. No bowel obstruction, or abnormal bowel wall thickening. There is mild colonic diverticulosis no evidence of acute diverticulitis. No pericecal inflammatory change. In the pelvis, bladder is unremarkable. Prostate gland is absent. There is moderate vascular calcification. No ascites, or lymphadenopathy. Bonystructures demonstrate degenerative changes, and decreased mineralization. There is intrathecal stimu lator device. No suspicious bony lesion is identified. Impression: Stable appearance of right middlelobe nodular opacity. Other pulmonary findings are also unchanged. Two subcentimeter hypervascular nodular foci in liver are nonspecific, and may represent perfusion anomalies. There are amenable to con tinued surveillance. 3 mm nonobstructive stone in the left kidney Signed: Callie Benavideschildren[facility] VerifiedDate/Time: 02/06/2021 14:16:42 Reading Location: [facility] C013X [facility] Consult Reading Room POCT URINALYSIS [id number] 00:00:00 Test Item Value Reference Range Interpretation Comments COLOR UA (test code = 5778-6) Yellow YELLOW/STRAW CLARITY UA (test code = 28096-4) Clear CLEAR GLUCOSE UA (test code = 5792-7) Negative NEGATIVE BILIRUBIN UA (test code = 5770-3) Negative NEGATIVE KETONES UA (test code = 70366-6) Positive NEGATIVE trace SPECIFIC GRAVITY UA (test code = 1.005-1.035 5811-5) BLOOD UA (test code = 5794-3) Negative NEGATIVE PH UA (test code = 5803-2) 5.0-9.0 PROTEIN UA (test code = 5804-0) Trace NEGATIVE UROBILINOGEN UA (test code = 0.02 E.U/DL NORMAL MG/DL 5818-0) LEUKOCYTE ESTERASE UA (test code Negative NEGATIVE = 5799-2) NITRITE UA (test code = 5802-4) Negative NEGATIVE REDUCING SUBSTANCES URINE (test code = 79079-5) [facility] W/AUTO DIFF WITH [id number] 09:31:38 Test Item Value Reference Range Interpretation Comments WHITE BLOOD CELL COUNT See_Comment [Aut omated message] (test code = 61093-0) The sy stem which generated this result transmitted ref erence range: 3.5 - 11 .0 K/UL. The reference r bernie was not used to int erpret this result as normal/abnormal . RED BLOOD CELL COUNT See_Comment [Autom ated message] (test code = 32788-2) The sy stem which generated this result transmitted ref erence range: 4.50 - 6 .10 M/UL. The refer ence range was not u sed to interpret this result as normal/abnor mal. HEMOGLOBIN (test code = See_Comment [Au tomated message] 718-7) The system [employer] generated this result transmitted ref erence range: 13.5 - 1 7.0 G/DL. The refer ence range was not u sed to interpret this result as normal/abnor mal. HEMATOCRIT (test code = 42.1 % 40-51 50237-9) MEAN CORPUSCULAR VOLUME 90.5 fL 80-99 (test code = 55837-4) MEAN CORPUSCULAR 30.8 PG 25-33 HEMOGLOBIN (test code = 76848-7) MEAN CORPUSCULAR See_Comment [Automated message] HEMOGLOBIN CONC (test The sy stem which code = 58264-3) generated th is result transmitted ref erence range: 31.0 - 3 6.0 G/DL. The refer ence range was not u sed to interpret this result as normal/abnor mal. RED CELL DISTRIBUTION 12.0 % 11.5-15 WIDTH (test code = 55822-9) NEUTROPHILS % (test 59.4 % 40-75 code = 62114-3) LYMPHOCYTES % (test 27.8 % 20-45 code = 00239-9) MONOCYTES % (test code 10.6 % 4-12 = 88522-3) EOSINOPHILS % (test 1.2 % 0-7 code = 91746-0) BASOPHILS % (test code 1.0 % 0-2 = 72742-1) PLATELET COUNT (test See_Comment Unless code = 71839-5) Otherwise In dicated, All Testing Per formed At: [facility], [address] [place] [address] Laboratory Dire ctor: Tomas santiago M.D. CLIA Numb er [id number] Cap Accreditation N o. [id number] [Auto mated message] The sy stem which generated this result transmit suly reference range : 130 - 400 K/UL. The r eference range was not u sed to interpret this result as normal/abnor mal. [facility] Center[facility]OL[facility] [id number] 09:11:38 Test Item Value Reference Range Interpretation Comments GLUCOSE (test code = See_Comment H [Autom ated message] 2345-7) The system [employer] generated this result transmitted ref erence range: 70 - 99 MG/DL. The reference r bernie was not used to interpret this result as normal/abnor mal. BLOOD UREA NITROGEN See_Comment [Automa suly message] (test code = 3091-6) The sys tem which generated this result transmitted ref erence range: 8 - 23 M G/DL. The reference r bernie was not used to interpret this result as normal/abnor mal. CREATININE (test code = See_Comment [Au tomated message] 2160-0) The system [employer] generated this result transmitted ref erence range: 0.80 - 1 .40 MG/DL. The refe rence range was not u sed to interpret this result as normal/abnor mal. EGFR AA (test code = See_Comment [Autom ated message] 52186-2) The system [employer] generated this result transmitted ref erence range: >60 ML/MIN/1.73. Th e reference range was not used to int erpret this result as normal/abnormal . EGFR (test code = See_Comment [Automate d message] 48630-6) The system [facility] generated this result transmitted ref erence range: >60 ML/MIN/1.73. Th e reference range was not used to int erpret this result as normal/abnormal . BUN/CREAT RATIO (test See_Comment [Auto mated message] code = 3097-3) The system [facility] generated this result transmitted ref erence range: 6 - 28 R ATIO. The reference r bernie was not used to interpret this result as normal/abnor mal. SODIUM (test code = See_Comment [Automa suly message] 2951-2) The system [facility] generated this result transmitted ref erence range: 133 - 14 6 MEQ/L. The refe rence range was not u sed to interpret this result as normal/abnor mal. POTASSIUM (test code = See_Comment [Aut omated message] 5813-3) The system [facility] generated this result transmitted ref erence range: 3.5 - 5. 4 MEQ/L. The refe rence range was not u sed to interpret this result as normal/abnor mal. CHLORIDE (test code = See_Comment [Auto mated message] 9335-0) The system [facility] generated this result transmitted ref erence range: 95 - 107 MEQ/L. The reference r bernie was not used to interpret this result as normal/abnor mal. CO2 (test code = See_Comment [Automated message] 1963-8) The system [facility] generated this result transmitted ref erence range: 19 - 31 MEQ/L. The reference r bernie was not used to interpret this result as normal/abnor mal. CALCIUM (test code = See_Comment [Autom ated message] 02588-0) The system [facility] generated this result transmitted ref erence range: 8.5 - 10 .5 MG/DL. The refe rence range was not u sed to interpret this result as normal/abnor mal. PROTEIN TOTAL (test See_Comment [Automa suly message] code = 2885-2) The system [facility] generated this result transmitted ref erence range: 6.1 - 8. 3 G/DL. The reference r bernie was not used to interpret this result as normal/abnor mal. ALBUMIN (test code = See_Comment [Autom ated message] 38365-3) The system [employer] generated this result transmitted ref erence range: 3.5 - 5. 2 G/DL. The reference r bernie was not used to interpret this result as normal/abnor mal. GLOBULINS, SERUM, TOTAL See_Comment [Au tomated message] (test code = 80317-3) The sy stem which generated this result transmitted ref erence range: 1.9 - 3. 7 G/DL. The reference r bernie was not used to interpret this result as normal/abnor mal. A/G RATIO (test code = See_Comment [Aut omated message] 1759-0) The system [employer] generated this result transmitted ref erence range: 1.0 - 2. 6 RATIO. The refe rence range was not u sed to interpret this result as normal/abnor mal. BILIRUBIN TOTAL (test See_Comment [Auto mated message] code = 1975-2) The system [facility] generated this result transmitted ref erence range: <=1.2 MG /DL. The reference r bernie was not used to interpret this result as normal/abnor mal. ALKALINE PHOSPHATASE 88 U/L 40-125 (test code = 6768-6) AST (SGOT) (test code = 18 U/L 9-50 1920-8) ALT (SGPT) (test code = 16 U/L 5-50 Unless 1744-2) Otherwise Indic ated, All Testing Per formed At: [facility], [address] [place] [address] Laboratory Dire ctor: Tomas santiago M.D. CLIA Num kerrie [id number] Cap Accreditation N o. [id number] Lab Interpretation Abnormal (test code = 23929-8) [facility] [id number] 00:00:00 Test Item Value Reference Range Interpretation Comments COLOR UA (test code = 5778-6) Yellow YELLOW/STRAW dark CLARITY UA (test code = 60890-9) Cloudy CLEAR GLUCOSE UA (test code = 5792-7) Negative NEGATIVE BILIRUBIN UA (test code = 5770-3) Negative NEGATIVE KETONES UA (test code = 57847-1) Negative NEGATIVE SPECIFIC GRAVITY UA (test code = 1.005-1.035 5811-5) BLOOD UA (test code = 5794-3) Negative NEGATIVE PH UA (test code = 5803-2) 5-9 PROTEIN UA (test code = 5804-0) Negative NEGATIVE UROBILINOGEN UA (test code = 0.02 E.U/DL NORMAL MG/DL 5818-0) LEUKOCYTE ESTERASE UA (test code Negative NEGATIVE = 5799-2) NITRITE UA (test code = 5802-4) Negative NEGATIVE REDUCING SUBSTANCES URINE (test code = 30003-6) [facility], [facility] / WITH IV [id number] 13:42:00Unlisted Reason for Exam - Click Yes and Enter Reason Below- >YesUnlisted Reason for Exam->Malignant carcinoid tumor of lungWill this procedure require oral contrast?->No [facility] : 1945 Sex: MFINAL REPORT TECHNIQUE: CT of the abdomen WITHOUT and WITH intravenous contrast and WITHOUT oral contrast. Dose modulation, iterative reconstruction, and/or weight-based adjustment of the mA/kV was utilized to reduce the radiation dose to as low as reasonably achievable. INDICATION: Malignant carcinoid tumor of the lung. COMPARISON: 06/08/2020. FINDINGS: LOWER THORAX: Emphysematous changes in the lung bases. Linear bands of subsegmental atelectasis or scarring. Nodular opacities in the medial segment of the right middle lobe remain unchanged.. HEPATOBILIARY: 0.9 cmcyst in segment eight of the liver. Few additional subcentimeter hypodense foci in the bilateral hepatic lobes are stable. No arterial enhancing liver mass.. Prior cholecystectomy.. No biliary ductal dilatation.SPLEEN: No splenomegaly.PANCREAS: No focal masses or ductal dilatation. ADRENALS: No adrenal nodules.KIDNEYS/URETERS: No hydronephrosis or solid mass lesions. 0.3 cm nonobstructing calculus inthe lower pole of the left kidney. PERITONEUM/RETROPERITONEUM: No free air or fluid.LYMPH NODES: No l ymphadenopathy.VESSELS: Atherosclerotic calcifications of the abdominal aorta and branch vessels. Noevidence of aneurysmal dilation.. There is conventional hepatic arterial anatomy. Portal vein, splenic vein and superior mesenteric vein are patent. GI TRACT: No distention or wall thickening. BONES AND SOFT TISSUES: Partially visualized postsurgical changes from posterior lumbosacral fusion. Degenerative changes in the spine. No suspicious osseous lesion. Spinal stimulator device is present within the left posterior subcutaneous tissues.. IMPRESSION:No intra-abdominal metastatic disease. Unchangedsize of nodular opacities within the right middle lobe. Signed: Lon Muñiz MDReport Verified Date/Time: 10/17/2020 13:42:39 [id number] 09:45:00 Test Item Value Reference Range Interpretation Comments POC-CREATININE 0.9 mg/dL 0.6-1.3 : TESTED AT [facility] ([facility]) (test [address] [facility] code = 1859) A, [facility] 7 9530: Consumer Education Specialist/Techni homer ID = [id number] for ROYCE GONZALEZ [facility] POC-EGFR 82 mL/min/1.73M2 ([facility]) (test code = 1860) SARS-CoV-2 (COVID-19) RNA [Presence] in Respiratory specimen by CARL with probe [id number] 16:11:05 Test Item Value Reference Range Interpretation Comments SARS-CoV-2 (COVID-19) RNA Not detected Not-Detected [Presence] in Respiratory specimen by CARL with probe detection (test code = 97180-7) PET/CT, GALLIUM 68 SKULL BASE TO [id number] 15:50:00Reason for Exam:- >CARCINOID TUMOR OF LUNG, UNSPECIFED WHETHER MALIGNANT [facility] : 1945 Sex: MFINAL REPORT EXAMINATION: DOTATATE-PET/CT, 10/04/2020 12:22 PM CLINICAL HISTORY: Pulmonary carcinoid tumor, status post systemic therapy.INDICATION: PET/CT is obtained for subsequent treatment evaluation.COMPARISON: Prior dotatate PET/CT 03/02/[address] studies 06/08/2020 TECHNIQUE:Radiopharmaceutical: Ga-68 DotatateAdministered activity: 5.5] mCiRoute of administration: Intravenously via the left handLocalization time: 58 minutesScan extent: Vertex of the skull to the proximal thighsAdditional imaging: NoneT Code: 36489 FINDINGS:Head and Neck: There continues to be focal, intense dotatate localization along the left frontal calvarium with a small associated focus of dural calcification on CT. Physiologic tracer activity in the pituitary gland. Chest: The irregular paramediastinal nodule in the right middle lobe seen previously has decreased in size inthe interim, currently measuring 1.5 x 1.3 cm (previously 2.8 x 1.7 cm), no longer visibly dotatate-a vid above regional background (SUV <2.2 currently versus 5.7 previously). Nodules in the surrounding right middle lobe pulmonary parenchyma have decreased in size, also not visibly tracer-avid. Additional tiny pulmonary nodules bilaterally are stable, and not visibly dotatate-avid above background.There continue to be scattered foci of angel activity in the right mediastinum and pulmonary adam, but these have decreased in intensity, as well. For example, uptake in the central right hilum has decreased from an SUV of 3.3 previously to 2.6 currently. There are no progressive sites of angel activity in the mediastinum. Low-grade activity in the axillary regions bilaterally is likely reactive. Abdomen and Pelvis: Physiologic tracer activity is seen in the liver, spleen, adrenal glands, and kidneys. There continues to be accentuation of dotatate uptake in the pancreatic tail and uncinate process,similar in pattern to the prior examination. Status post prostatectomy and pelvic lymphadenectomy. Musculoskeletal: There are no focal sites of osseous dotatate activity. Degenerative changes are againseen in the lumbar spine, status post lumbar spine and left sacroiliac fusion. IMPRESSION: 1.Pulmonary and intrathoracic angel sites of dotatate activity have decreased in size and intensity since 03/02/2020, consistent with positive response to therapy.2.Stable dural-based focus of intracranial dotatate activity in the left frontal region, likely a small meningioma. Signed: Terry Pittseport Verified Date/Time: 10/04/2020 15:50:17 POCT URINALYSIS [id number] 00:00:00 Test Item Value Reference Range Interpretation Comments COLOR UA (test code = 5778-6) Isabela YELLOW/STRAW CLARITY UA (test code = 86956-1) Clear CLEAR GLUCOSE UA (test code = 5792-7) Negative NEGATIVE BILIRUBIN UA (test code = 5770-3) Negative NEGATIVE KETONES UA (test code = 59345-1) Negative NEGATIVE SPECIFIC GRAVITY UA (test code = 1.005-1.035 5811-5) BLOOD UA (test code = 5794-3) Negative NEGATIVE PH UA (test code = 5803-2) 5-9 PROTEIN UA (test code = 5804-0) Negative NEGATIVE UROBILINOGEN UA (test code = 0.02 E.U/DL NORMAL MG/DL 5818-0) LEUKOCYTE ESTERASE UA (test code Negative NEGATIVE = 5799-2) NITRITE UA (test code = 5802-4) Negative NEGATIVE REDUCING SUBSTANCES URINE (test code = 79061-9) [id number] 05:35:00 Test Item Value Reference Range Interpretation Comments PHOSPHORUS (BEAKER) 2.9 mg/dL 2.3-4.7 Specimen slightly (test code = 604) hemolyzed Consumer Education Specialist ID - EDASIBASIC METABOLIC [id number] 05:35:00 Test Item Value Reference Range Interpretation Comments SODIUM (BEAKER) 138 meq/L 136-145 (test code = 381) POTASSIUM (BEAKER) 4.0 meq/L 3.5-5.1 Specimen slightly (test code = 379) hemolyzed CHLORIDE (BEAKER) 106 meq/L 98-107 (test code = 382) CO2 (BEAKER) (test 22 meq/L 22-29 code = 355) BLOOD UREA NITROGEN 6 mg/dL 7-21 L (BEAKER) (test code = 354) CREATININE (BEAKER) 0.77 mg/dL 0.57-1.25 Specimen slightly (test code = 358) hemolyzed GLUCOSE RANDOM 134 mg/dL 70-105 H (BEAKER) (test code = 652) CALCIUM (BEAKER) 8.6 mg/dL 8.4-10.2 (test code = 697) EGFR (BEAKER) (test 98 mL/min/1.73 ESTIMA SULY GFR IS code = 1092) sq m NOT ACCURATE CREATININE CLEARANCE IN PREDICTING GLOMERULAR FILTRATION RATE . ESTIMATED GFR I S NOT APPLICABLE FOR DIALYSIS PATIEN TS. Consumer Education Specialist ID - EDASIRAD, CHEST, 1 VIEW, NON [id number] 04:31:00Reason for exam:->S/P hiatal hernia repair and fundoplicationShould this be performed at the bedside?->Yes [facility] : 1945 Sex: MFINAL REPORT RAD, CHEST, 1 VIEW, NON DEPT INDICATION: S/P hiatal he rnia repair and fundoplication COMPARISON: Prior day's exam FINDINGS: Portable frontal view of the chest. IMPRESSION: Support Lines: None. Lungs and pleura: Unchanged airspace and pleural opacities.No pneumothorax.Heart and mediastinum: Stable contours. Additional findings: None. Signed: Lori Cartwright Verified Date/Time: 07/28/2020 04:31:31 SARS-COV2/RT-PCR ([facility]) 2020-07-27 11:30:00 Test Item Value Reference Range Interpretation Comments SARS-COV2/RT-PCR (test Negative Not Detected, Negative, code = 4636653) See external report for linked test SARS-COV-2 PERFORMING LAB [facility] ADRIANNA (test code = 7693824) Negative result for this test determines that SARS-CoV-2 RNA was not present in the specimen above the Limit of Detection (LOD). However, Negative results do not preclude SARS-CoV-2 infection and should not be used as the sole basis for treatment or patient management decisions. Negative results mustbe combined with clinical observations, patient history, and epidemiological information. A false negative result may occur if a specimen is improperly collected, transported or handled. A false negative result should be considered if patient's recent exposures or clinical presentation indicate that COVID-19 (SARS-CoV-2) is likely and diagnostic tests for other causes of illness are negative. Re-testing should be considered in cases of suspected false negatives.The limit of detection for this assay is 800 copies/mL.This SARS CoV-2 test is a real-time RT-PCR test intended for the qualitative detection of nucleic acid from SARS-CoV-2 in a nasopharyngeal swab specimen collected from individuals susp ected of COVID-19 by their healthcare provider.This test has not been Food and Drug Administration (FDA) cleared or approved. This is a modified version of an approved Emergency Use Authorization (EUA) and is in the process of review by the FDA. Once authorized by the FDA, the issued EUA will be effective until the declaration that circumstances exist justifying the authorization of the emergency use of in vitro diagnostic tests for detection and/or diagnosis of COVID-19 is terminated under Section 564(b)(2) of the Act or the EUA is revoked under Section 564(g) of the Act.Fact Sheet for Healthcare Providers:https://www.Indiewalls.TutorialTab/sites/default/files/product/documents/Fact_Shedoretha arnolds_EL_Wznviginv_Rzkf_PRNS-GoX-8.pdfFact Sheet for Healthcare Patients:https://www.CircleUp/sites/default/files/product/ documents/Ssev_Akptv_Jdcrwubw_Ytlc_HSVS-WqT-5.pdfPerforming Laboratory:[address] [address]MGU W/PLT COUNT & AUTO [id number] 06:33:00 Test Item Value Reference Range Interpretation Comments WHITE BLOOD CELL COUNT (BEAKER) 9.1 K/ L 3.5-10.5 (test code = 775) RED BLOOD CELL COUNT (BEAKER) 3.93 M/ L 4.63-6.08 L (test code = 761) HEMOGLOBIN (BEAKER) (test code = 12.0 GM/DL 13.7-17.5 L 410) HEMATOCRIT (BEAKER) (test code = 37.1 % 40.1-51.0 L 411) MEAN CORPUSCULAR VOLUME (BEAKER) 94.4 fL 79.0-92.2 H (test code = 753) MEAN CORPUSCULAR HEMOGLOBIN 30.5 pg 25.7-32.2 (BEAKER) (test code = 751) MEAN CORPUSCULAR HEMOGLOBIN CONC 32.3 GM/DL 32.3-36.5 (BEAKER) (test code = 752) RED CELL DISTRIBUTION WIDTH 13.0 % 11.6-14.4 (BEAKER) (test code = 412) PLATELET COUNT (BEAKER) (test 202 K/CU MM 150-450 code = 756) MEAN PLATELET VOLUME (BEAKER) 9.8 fL 9.4-12.4 (test code = 754) NUCLEATED RED BLOOD CELLS 0 /100 WBC 0-0 (BEAKER) (test code = 413) NEUTROPHILS RELATIVE PERCENT 59 % (BEAKER) (test code = 429) LYMPHOCYTES RELATIVE PERCENT 27 % (BEAKER) (test code = 430) MONOCYTES RELATIVE PERCENT 11 % (BEAKER) (test code = 431) EOSINOPHILS RELATIVE PERCENT 2 % (BEAKER) (test code = 432) BASOPHILS RELATIVE PERCENT 1 % (BEAKER) (test code = 437) NEUTROPHILS ABSOLUTE COUNT 5.36 K/ L 1.78-5.38 (BEAKER) (test code = 670) LYMPHOCYTES ABSOLUTE COUNT 2.44 K/ L 1.32-3.57 (BEAKER) (test code = 414) MONOCYTES ABSOLUTE COUNT (BEAKER) 1.00 K/ L 0.30-0.82 H (test code = 415) EOSINOPHILS ABSOLUTE COUNT 0.14 K/ L 0.04-0.54 (BEAKER) (test code = 416) BASOPHILS ABSOLUTE COUNT (BEAKER) 0.06 K/ L 0.01-0.08 (test code = 417) IMMATURE GRANULOCYTES-RELATIVE 1 % 0-1 PERCENT (BEAKER) (test code = 2801) BASIC METABOLIC [id number] 06:30:00 Test Item Value Reference Range Interpretation Comments SODIUM (BEAKER) 137 meq/L 136-145 (test code = 381) POTASSIUM (BEAKER) 3.7 meq/L 3.5-5.1 (test code = 379) CHLORIDE (BEAKER) 106 meq/L 98-107 (test code = 382) CO2 (BEAKER) (test 22 meq/L 22-29 code = 355) BLOOD UREA NITROGEN 7 mg/dL 7-21 (BEAKER) (test code = 354) CREATININE (BEAKER) 0.75 mg/dL 0.57-1.25 (test code = 358) GLUCOSE RANDOM 121 mg/dL 70-105 H (BEAKER) (test code = 652) CALCIUM (BEAKER) 8.2 mg/dL 8.4-10.2 L (test code = 697) EGFR (BEAKER) (test 101 mL/min/1.73 ESTIM ATED GFR IS code = 1092) sq m NOT ACCURATE CREATININE CLEARANCE IN PREDICTING GLOMERULAR FILTRATION RATE . ESTIMATED GFR I S NOT APPLICABLE FOR DIALYSIS PATIEN TS. Consumer Education Specialist ID - PIEVELYNE [id number] 06:30:00 Test Item Value Reference Range Interpretation Comments MAGNESIUM (BEAKER) (test code = 2.0 mg/dL 1.6-2.6 627) Consumer Education Specialist ID - ELSA [id number] 06:30:00 Test Item Value Reference Range Interpretation Comments PHOSPHORUS (BEAKER) (test code = 2.6 mg/dL 2.3-4.7 604) Consumer Education Specialist ID - PIAYA LRAD, CHEST, 1 VIEW, NON [id number] 04:47:00Reason for exam:->S/P hiatal hernia repair and fundoplicationShould this be performed at the bedside?->Yes [facility] 1945 Sex: MFINAL REPORT RAD, CHEST, 1 VIEW, NON DEPT INDICATION: S/P hiatal he rnia repair and fundoplication COMPARISON: Prior day's exam FINDINGS: Portable frontal view of the chest. IMPRESSION: Support Lines: None.. Lungs and pleura: Unchanged airspace and pleural opacities. No pneumothorax.Heart and mediastinum: Stable contours. Additional findings: None. Signed: L[facility]wrightst. [facility] Verified Date/Time: 07/27/2020 04:47:34 RAD, ABDOMEN/KUB, 1 VIEW [id number] 19:11:00Reason for exam:->abd distention [facility] 1945 Sex: MFINAL REPORT TECHNIQUE: Single View of the Abdomen. INDICATION: abd distention. COMPARISON: CT from 06/08/2020. FINDINGS/IMPRESSION: There is oral contrast in the colon. The transverse colon is mildly dilated at 8.3 cm in diameter. This may be due to an adynamic ileus. A large bowel obstruction is considered less likely. No acute bone abnormality. Prior left sacroiliac fusion and lumbar spinal fusion. Moderate degenerative changes of the hips. An electronic device overlies the left gluteal muscle a with leads which extend into the thoracic spine. Mild left medial basal atelectasis. Signed: Marcela Gavin MDReport Verified Date/Time: 07/26/2020 19:11:31 Reading Location: [address] Reading Room URINALYSIS W/ REFLEX URINE [id number] 17:09:00 Test Item Value Reference Range Interpretation Comments COLOR (BEAKER) (test code = 470) Yellow CLARITY (BEAKER) (test code = 469) Clear SPECIFIC GRAVITY UA (BEAKER) (test 1.014 1.001-1.035 code = 468) PH UA (BEAKER) (test code = 467) 6.0 5.0-8.0 PROTEIN UA (BEAKER) (test code = Negative Negative 464) GLUCOSE UA (BEAKER) (test code = 100 mg/dL Negative A 365) KETONES UA (BEAKER) (test code = Negative Negative 371) BILIRUBIN UA (BEAKER) (test code = Negative Negative 462) BLOOD UA (BEAKER) (test code = Negative Negative 461) NITRITE UA (BEAKER) (test code = Negative Negative 465) LEUKOCYTE ESTERASE UA (BEAKER) Negative Negative (test code = 466) UROBILINOGEN UA (BEAKER) (test 0.2 mg/dL 0.2-1.0 code = 463) RBC UA (BEAKER) (test code = 519) < /HPF WBC UA (BEAKER) (test code = 520) 2 /HPF BACTERIA (BEAKER) (test code = Rare 517) MUCUS (BEAKER) (test code = 1574) Rare SQUAMOUS EPITHELIAL (BEAKER) (test < /HPF code = 516) YEAST (BEAKER) (test code = 1585) Occasional SOURCE(BEAKER) (test code = 2795) Consumer Education Specialist ID - [auto]Consumer Education Specialist ID - techPOCT-GLUCOSE [id number] 11:59:00 Test Item Value Reference Range Interpretation Comments POC-GLUCOSE METER 192 mg/dL 70-110 H : TESTED A T [facility] 6720 (BEAKER) (test code = RADHA Tafoya [facility], 1538) [address]: Consumer Education Specialist/Techni homer ID = [id number] for Yen Mancuso RAD, CHEST, 1 VIEW, NON [id number] 06:10:00Reason for exam:->S/P hiatal hernia repair and fundoplicationShould this be performed at the bedside?->Yes [facility] 1945 Sex: MFINAL REPORT RAD, CHEST, 1 VIEW, NON DEPT INDICATION: S/P hiatal he rnia repair and fundoplication COMPARISON: Prior day's exam FINDINGS: Portable frontal view of the chest. IMPRESSION: Support Lines: Enteric tube is been removed. Lungs and pleura: No significant change in airspace and pleural opacities. No pneumothorax.Heart and mediastinum: Stable contours. Additional findings: None. Signed: Arthur Middleton MDReport Verified Date/Time: 07/26/2020 06:10:51 POCT-GLUCOSE [id number] 06:05:00 Test Item Value Reference Range Interpretation Comments POC-GLUCOSE METER 127 mg/dL 70-110 H : TESTED A T [facility] 6720 (BEAKER) (test code = RADHA BOOTH [place], 1538) [id number]: Consumer Education Specialist/Techni homer ID = [id number] for SOLEDAD ODONNELL BASIC METABOLIC [id number] 04:02:00 Test Item Value Reference Range Interpretation Comments SODIUM (BEAKER) 141 meq/L 136-145 (test code = 381) POTASSIUM (BEAKER) 3.6 meq/L 3.5-5.1 Specimen slightly (test code = 379) hemolyzed CHLORIDE (BEAKER) 108 meq/L 98-107 H (test code = 382) CO2 (BEAKER) (test 27 meq/L 22-29 code = 355) BLOOD UREA NITROGEN 9 mg/dL 7-21 (BEAKER) (test code = 354) CREATININE (BEAKER) 0.84 mg/dL 0.57-1.25 Specimen slightly (test code = 358) hemolyzed GLUCOSE RANDOM 132 mg/dL 70-105 H (BEAKER) (test code = 652) CALCIUM (BEAKER) 8.1 mg/dL 8.4-10.2 L (test code = 697) EGFR (BEAKER) (test 89 mL/min/1.73 ESTIMA SULY GFR IS code = 1092) sq m NOT ACCURATE CREATININE CLEARANCE IN PREDICTING GLOMERULAR FILTRATION RATE . ESTIMATED GFR I S NOT APPLICABLE FOR DIALYSIS PATIEN TS. Consumer Education Specialist ID - LUI [id number] 03:54:00 Test Item Value Reference Range Interpretation Comments MAGNESIUM (BEAKER) 2.0 mg/dL 1.6-2.6 Specimen slightly (test code = 627) hemolyzed Consumer Education Specialist ID - LUI [id number] 03:54:00 Test Item Value Reference Range Interpretation Comments PHOSPHORUS (BEAKER) 3.0 mg/dL 2.3-4.7 Specimen slightly (test code = 604) hemolyzed Consumer Education Specialist ID - LUI MCBC W/PLT COUNT & AUTO [id number] 03:06:00 Test Item Value Reference Range Interpretation Comments WHITE BLOOD CELL COUNT (BEAKER) 9.2 K/ L 3.5-10.5 (test code = 775) RED BLOOD CELL COUNT (BEAKER) 3.67 M/ L 4.63-6.08 L (test code = 761) HEMOGLOBIN (BEAKER) (test code = 11.3 GM/DL 13.7-17.5 L 410) HEMATOCRIT (BEAKER) (test code = 34.1 % 40.1-51.0 L 411) MEAN CORPUSCULAR VOLUME (BEAKER) 92.9 fL 79.0-92.2 H (test code = 753) MEAN CORPUSCULAR HEMOGLOBIN 30.8 pg 25.7-32.2 (BEAKER) (test code = 751) MEAN CORPUSCULAR HEMOGLOBIN CONC 33.1 GM/DL 32.3-36.5 (BEAKER) (test code = 752) RED CELL DISTRIBUTION WIDTH 13.2 % 11.6-14.4 (BEAKER) (test code = 412) PLATELET COUNT (BEAKER) (test 198 K/CU MM 150-450 code = 756) MEAN PLATELET VOLUME (BEAKER) 9.4 fL 9.4-12.4 (test code = 754) NUCLEATED RED BLOOD CELLS 0 /100 WBC 0-0 (BEAKER) (test code = 413) NEUTROPHILS RELATIVE PERCENT 65 % (BEAKER) (test code = 429) LYMPHOCYTES RELATIVE PERCENT 23 % (BEAKER) (test code = 430) MONOCYTES RELATIVE PERCENT 10 % (BEAKER) (test code = 431) EOSINOPHILS RELATIVE PERCENT 0 % (BEAKER) (test code = 432) BASOPHILS RELATIVE PERCENT 0 % (BEAKER) (test code = 437) NEUTROPHILS ABSOLUTE COUNT 5.97 K/ L 1.78-5.38 H (BEAKER) (test code = 670) LYMPHOCYTES ABSOLUTE COUNT 2.13 K/ L 1.32-3.57 (BEAKER) (test code = 414) MONOCYTES ABSOLUTE COUNT (BEAKER) 0.95 K/ L 0.30-0.82 H (test code = 415) EOSINOPHILS ABSOLUTE COUNT 0.04 K/ L 0.04-0.54 (BEAKER) (test code = 416) BASOPHILS ABSOLUTE COUNT (BEAKER) 0.03 K/ L 0.01-0.08 (test code = 417) IMMATURE GRANULOCYTES-RELATIVE 0 % 0-1 PERCENT (BEAKER) (test code = 2801) POCT-GLUCOSE [id number] 01:03:00 Test Item Value Reference Range Interpretation Comments POC-GLUCOSE METER 138 mg/dL 70-110 H : TESTED A T [facility] 6720 (MARÍA) (test code = RADHA BOOTH [place], 153) [id number]: Consumer Education Specialist/Techni homer ID = [id number] for SOLEDAD ODONNELL [place], [id number] 16:56:00Reason for exam:->s/p hiatal hernia repair and toupet fundopliation, eval for leak or obstructionbefore noon per Dr. Gilbert [facility] : 1945 Sex: MFINAL REPORT Gastrografin esophagogram Clinical History: s/p hiatal hernia repair and Toupet fundoplication, eval for leak or obstruction Discussion: Gastrografin is given to the patient to drink, without difficulties. The esophageal motility, and caliber is normal. There is no contrast extravasation and no evidence of obstruction. Fluoro time: 0.4 minutes Number of images obtained: 5 Signed: Callie Benavides Verified Date/Time: 07/25/2020 16:56:51 Reading Location: [address] Consult Reading Room POCT-GLUCOSE [id number] 11:44:00 Test Item Value Reference Range Interpretation Comments POC-GLUCOSE METER 139 mg/dL 70-110 H : TESTED A T [facility] 6720 (MARÍA) (test code = RADHA BOOTH [place], 153) [address]: Consumer Education Specialist/Techni homer ID = [id number] for Yen Mancuso, CHEST, 1 VIEW, NON [id number] 09:35:00Reason for exam:->S/P hiatal hernia repair and fundoplicationShould this be performed at the bedside?->Yes [facility] : 1945 Sex: MFINAL REPORT Hs, CLINICAL HISTORY: S/P hiatal hernia repair and fun doplication TECHNIQUE: 1 view of the chest. COMPARISON: 07/24/2020 IMPRESSION: An NGT is again seen below the diaphragm. Left greater the right lower lung bandlike opacities are again seen. A trace left pleural effusion is again seen. The cardiomediastinal silhouette is magnified by technique. Signed:Ondina Varghese Verified Date/Time: 07/25/2020 09:35:51 Reading Location: [facility] Radiology Reading Room POCT-GLUCOSE [id number] 06:24:00 Test Item Value Reference Range Interpretation Comments POC-GLUCOSE METER 157 mg/dL 70-110 H : TESTED A T [facility] 6720 (BEAKER) (test code = RADHA BOOTH [place], 1538) [address]: Consumer Education Specialist/Techni homer ID = [id number] for SOLEDAD ODONNELL BASIC METABOLIC [id number] 05:38:00 Test Item Value Reference Range Interpretation Comments SODIUM (BEAKER) 132 meq/L 136-145 L Repeated for delta (test code = 381) check POTASSIUM (BEAKER) 4.1 meq/L 3.5-5.1 Specimen slightly (test code = 379) hemolyzed CHLORIDE (BEAKER) 103 meq/L 98-107 (test code = 382) CO2 (BEAKER) (test 19 meq/L 22-29 L code = 355) BLOOD UREA NITROGEN 9 mg/dL 7-21 (BEAKER) (test code = 354) CREATININE (BEAKER) 0.68 mg/dL 0.57-1.25 Specimen slightly (test code = 358) hemolyzed GLUCOSE RANDOM 269 mg/dL 70-105 H (BEAKER) (test code = 652) CALCIUM (BEAKER) 7.7 mg/dL 8.4-10.2 L (test code = 697) EGFR (BEAKER) (test 113 mL/min/1.73 ESTIM ATED GFR IS code = 1092) sq m NOT ACCURATE CREATININE CLEARANCE IN PREDICTING GLOMERULAR FILTRATION RATE . ESTIMATED GFR I S NOT APPLICABLE FOR DIALYSIS PATIEN TS. Consumer Education Specialist ID - EDASIOperator ID - LUI MCBC W/PLT COUNT & AUTO DIFFERENTIAL 2020-07-25 05:12:00 Test Item Value Reference Range Interpretation Comments WHITE BLOOD CELL COUNT (BEAKER) 11.5 K/ L 3.5-10.5 H (test code = 775) RED BLOOD CELL COUNT (BEAKER) 3.41 M/ L 4.63-6.08 L (test code = 761) HEMOGLOBIN (BEAKER) (test code = 10.6 GM/DL 13.7-17.5 L 410) HEMATOCRIT (BEAKER) (test code = 31.6 % 40.1-51.0 L 411) MEAN CORPUSCULAR VOLUME (BEAKER) 92.7 fL 79.0-92.2 H (test code = 753) MEAN CORPUSCULAR HEMOGLOBIN 31.1 pg 25.7-32.2 (BEAKER) (test code = 751) MEAN CORPUSCULAR HEMOGLOBIN CONC 33.5 GM/DL 32.3-36.5 (BEAKER) (test code = 752) RED CELL DISTRIBUTION WIDTH 12.9 % 11.6-14.4 (BEAKER) (test code = 412) PLATELET COUNT (BEAKER) (test 186 K/CU MM 150-450 code = 756) MEAN PLATELET VOLUME (BEAKER) 9.6 fL 9.4-12.4 (test code = 754) NUCLEATED RED BLOOD CELLS 0 /100 WBC 0-0 (BEAKER) (test code = 413) NEUTROPHILS RELATIVE PERCENT 75 % (BEAKER) (test code = 429) LYMPHOCYTES RELATIVE PERCENT 15 % (BEAKER) (test code = 430) MONOCYTES RELATIVE PERCENT 10 % (BEAKER) (test code = 431) EOSINOPHILS RELATIVE PERCENT 0 % (BEAKER) (test code = 432) BASOPHILS RELATIVE PERCENT 0 % (BEAKER) (test code = 437) NEUTROPHILS ABSOLUTE COUNT 8.58 K/ L 1.78-5.38 H (BEAKER) (test code = 670) LYMPHOCYTES ABSOLUTE COUNT 1.68 K/ L 1.32-3.57 (BEAKER) (test code = 414) MONOCYTES ABSOLUTE COUNT (BEAKER) 1.13 K/ L 0.30-0.82 H (test code = 415) EOSINOPHILS ABSOLUTE COUNT 0.00 K/ L 0.04-0.54 L (BEAKER) (test code = 416) BASOPHILS ABSOLUTE COUNT (BEAKER) 0.01 K/ L 0.01-0.08 (test code = 417) IMMATURE GRANULOCYTES-RELATIVE 0 % 0-1 PERCENT (BEAKER) (test code = 2801) [id number] 04:58:00 Test Item Value Reference Range Interpretation Comments MAGNESIUM (BEAKER) 1.6 mg/dL 1.6-2.6 Specimen slightly (test code = 627) hemolyzed Consumer Education Specialist ID - [id number] 04:58:00 Test Item Value Reference Range Interpretation Comments PHOSPHORUS (BEAKER) 2.0 mg/dL 2.3-4.7 L Specimen slightly (test code = 604) hemolyzed Consumer Education Specialist ID - EDASIPOCT-GLUCOSE [id number] 01:14:00 Test Item Value Reference Range Interpretation Comments POC-GLUCOSE METER 149 mg/dL 70-110 H : TESTED A T [facility] 6720 (BEAKER) (test code = RADHA BOOTH [place], 1538) [id number]: Consumer Education Specialist/Techni homer ID = [id number] for UE JACKSON, SOLEDAD RAD, CHEST, 1 VIEW, NON [id number] 12:40:00Reason for exam:->S/P hiatal hernia repair and fundoplicationShould this be performed at the bedside?->Yes [facility] 1945 Sex: MFINAL REPORT CLINICAL HISTORY: S/P hiatal hernia repair and fundopl ication TECHNIQUE: 1 view of the chest. COMPARISON: 07/20/2020 IMPRESSION: There is a new nasogastric tube extending below the diaphragm. There is new left lung base pleural-parenchymal opacity. Thereis no pneumothorax. The cardiomediastinal silhouette is magnified by technique. A thoracic spinal sti mulator is again seen. Signed: Ondina Varghese MDReport Verified Date/Time: 07/24/2020 12:40:10 Reading Location: [facility] Radiology Reading Room Electronically signed by: ONDINA VARGHESE M.D.on 07/24/2020 12:40 PMBASI METABOLIC [id number] 12:32:00 Test Item Value Reference Range Interpretation Comments SODIUM (BEAKER) 142 meq/L 136-145 (test code = 381) POTASSIUM (BEAKER) 4.4 meq/L 3.5-5.1 (test code = 379) CHLORIDE (BEAKER) 112 meq/L 98-107 H (test code = 382) CO2 (BEAKER) (test 25 meq/L 22-29 code = 355) BLOOD UREA NITROGEN 20 mg/dL 7-21 (BEAKER) (test code = 354) CREATININE (BEAKER) 1.09 mg/dL 0.57-1.25 (test code = 358) GLUCOSE RANDOM 153 mg/dL 70-105 H (BEAKER) (test code = 652) CALCIUM (BEAKER) 9.1 mg/dL 8.4-10.2 (test code = 697) EGFR (BEAKER) (test 66 mL/min/1.73 ESTIMA USLY GFR IS code = 1092) sq m NOT ACCURATE CREATININE CLEARANCE IN PREDICTING GLOMERULAR FILTRATION RATE . ESTIMATED GFR I S NOT APPLICABLE FOR DIALYSIS PATIEN TS. Consumer Education Specialist ID - SYLVIA [id number] 12:32:00 Test Item Value Reference Range Interpretation Comments MAGNESIUM (BEAKER) (test code = 1.8 mg/dL 1.6-2.6 627) Consumer Education Specialist ID - SYLVIA CCBC W/PLT COUNT & AUTO [id number] 12:15:00 Test Item Value Reference Range Interpretation Comments WHITE BLOOD CELL COUNT (BEAKER) 20.3 K/ L 3.5-10.5 H (test code = 775) RED BLOOD CELL COUNT (BEAKER) 4.08 M/ L 4.63-6.08 L (test code = 761) HEMOGLOBIN (BEAKER) (test code = 12.5 GM/DL 13.7-17.5 L 410) HEMATOCRIT (BEAKER) (test code = 38.5 % 40.1-51.0 L 411) MEAN CORPUSCULAR VOLUME (BEAKER) 94.4 fL 79.0-92.2 H (test code = 753) MEAN CORPUSCULAR HEMOGLOBIN 30.6 pg 25.7-32.2 (BEAKER) (test code = 751) MEAN CORPUSCULAR HEMOGLOBIN CONC 32.5 GM/DL 32.3-36.5 (BEAKER) (test code = 752) RED CELL DISTRIBUTION WIDTH 13.1 % 11.6-14.4 (BEAKER) (test code = 412) PLATELET COUNT (BEAKER) (test 233 K/CU MM 150-450 code = 756) MEAN PLATELET VOLUME (BEAKER) 9.3 fL 9.4-12.4 L (test code = 754) NUCLEATED RED BLOOD CELLS 0 /100 WBC 0-0 (BEAKER) (test code = 413) NEUTROPHILS RELATIVE PERCENT 86 % (BEAKER) (test code = 429) LYMPHOCYTES RELATIVE PERCENT 8 % (BEAKER) (test code = 430) MONOCYTES RELATIVE PERCENT 6 % (BEAKER) (test code = 431) EOSINOPHILS RELATIVE PERCENT 0 % (BEAKER) (test code = 432) BASOPHILS RELATIVE PERCENT 0 % (BEAKER) (test code = 437) NEUTROPHILS ABSOLUTE COUNT 17.43 K/ L 1.78-5.38 H (BEAKER) (test code = 670) LYMPHOCYTES ABSOLUTE COUNT 1.54 K/ L 1.32-3.57 (BEAKER) (test code = 414) MONOCYTES ABSOLUTE COUNT (BEAKER) 1.16 K/ L 0.30-0.82 H (test code = 415) EOSINOPHILS ABSOLUTE COUNT 0.01 K/ L 0.04-0.54 L (BEAKER) (test code = 416) BASOPHILS ABSOLUTE COUNT (BEAKER) 0.05 K/ L 0.01-0.08 (test code = 417) IMMATURE GRANULOCYTES-RELATIVE 1 % 0-1 PERCENT (BEAKER) (test code = 2801) CALCIUM, [id number] 12:01:00 Test Item Value Reference Range Interpretation Comments CALCIUM IONIZED (BEAKER) (test 1.18 mmol/L 1.12-1.27 code = 698) PH, BLOOD (BEAKER) (test code = 7.30 1810) CALCIUM, [id number] 10:34:00 Test Item Value Reference Range Interpretation Comments CALCIUM IONIZED (BEAKER) (test 1.03 mmol/L 1.12-1.27 L code = 698) PH, BLOOD (BEAKER) (test code = 7.30 1810) BLOOD GAS, [id number] 10:34:00 Test Item Value Reference Range Interpretation Comments PH ARTERIAL (BEAKER) (test code = 7.31 7.35-7.45 L 383) PCO2 ARTERIAL (BEAKER) (test code 43 mm Hg 35-45 = 384) PO2 ARTERIAL (BEAKER) (test code 246 mm Hg 80-90 H = 385) O2 SATURATION ARTERIAL (BEAKER) 99.5 % 96.0-97.0 H (test code = 386) HCO3 ARTERIAL (BEAKER) (test code 21 mmol/L 21-29 = 388) BASE EXCESS ARTERIAL (BEAKER) -4.9 mmol/L -2.0-3.0 L (test code = 387) PATIENT TEMPERATURE (BEAKER) 36.2 (test code = 1818) FIO2 (BEAKER) (test code = 1819) 70.0 GLUCOSE-STAT [id number] 10:34:00 Test Item Value Reference Range Interpretation Comments GLUCOSE RANDOM (BEAKER) (test code 146 mg/dL 70-110 H = 652) HGB/HCT (H&H) - STAT [id number] 10:34:00 Test Item Value Reference Range Interpretation Comments HEMOGLOBIN (BEGENESIS) (test code = 12.7 GM/DL 13.0-16.8 L 410) HEMATOCRIT (MARÍA) (test code = 37.0 % 40.0-50.0 L 411) SODIUM NA-STAT [id number] 10:33:00 Test Item Value Reference Range Interpretation Comments SODIUM (BEGENESIS) (test code = 381) 140 meq/L 136-145 POTASSIUM-STAT [id number] 10:33:00 Test Item Value Reference Range Interpretation Comments POTASSIUM (MARÍA) (test code = 4.1 meq/L 3.6-5.5 379) POCT-GLUCOSE [id number] 06:00:00 Test Item Value Reference Range Interpretation Comments POC-GLUCOSE METER 126 mg/dL 70-110 H : TESTED A T [facility] 67[address] (MARÍA) (test code = RADHA BOOTH [place], 1538) [address]: Consumer Education Specialist/Techni homer ID = [id number] for Ramya Ramos SARS-COV2/RT-PCR ([facility])2020-07-21 07:52:00 Test Item Value Reference Range Interpretation Comments SARS-COV2/RT-PCR (test Negative Not Detected, Negative, code = 0261973) See external report for linked test SARS-COV-2 PERFORMING LAB [facility] ADRIANNA (test code = 5389415) Negative result for this test determines that SARS-CoV-2 RNA was not present in the specimen above the Limit of Detection (LOD). However, Negative results do not preclude SARS-CoV-2 infection and should not be used as the sole basis for treatment or patient management decisions. Negative results mustbe combined with clinical observations, patient history, and epidemiological information. A false negative result may occur if a specimen is improperly collected, transported or handled. A false negative result should be considered if patient's recent exposures or clinical presentation indicate that COVID-19 (SARS-CoV-2) is likely and diagnostic tests for other causes of illness are negative. Re-testing should be considered in cases of suspected false negatives.The limit of detection for this assay is 100 copies/mL.This SARS CoV-2 test is a real-time RT-PCR test intended for the qualitative detection of nucleic acid from SARS-CoV-2 in a nasopharyngeal swab specimen collected from individuals suspected of COVID-19 by their healthcare provider.This test has not been Food and Drug Administration (FDA) cleared or approved. This is a modified version of an approved Emergency Use Authorization (EUA) and is in the process of review by the FDA. Once authorized by the FDA, the issued EUA will be effective until the declaration that circumstances exist justifying the authorization of the emergency use of in vitro diagnostic tests for detection and/or diagnosis of COVID-19 is terminated under Section 564(b)(2) of the Act or the EUA is revoked under Section 564(g) of the Act.Testing was performed using the Humphries SARS-CoV-2 assay.Fact Sheet for Healthcare Providers:https://www.[employer].humphries/edu/ EG_MHVP-ThD-6_YUZ_Awet_Hvuiw_85-100598.pdfFact Sheet for Healthcare Patients:https://www.[employer].Moonfrye solange/edu/CX_EFCI-CjQ-8_Kzvemoo_Txgq_Vqbob_LP_40-044940G6.pdfPerforming Laboratory:[facility] [place] [address] RAD, CHEST, 2 [id number] 16:21:00Reason for exam:->pre-op exam Should this be performed at the bedside?->[facility] 1945 Sex: MFINAL REPORT TECHNIQUE: Frontal and lateral views of the chest. IND ICATION: 74-year-old man for preoperative evaluation. COMPARISON: Chest radiographs 06/18/2020. FINDINGS: LINES/TUBES: Unchanged leads terminate over the midline of the thoracic spine at the T7-T8 level. LUNGS: Lungs are well inflated. No consolidation or pulmonary edema. Unchanged curvilinear atelect asis/scarring in both lower lung zones. PLEURA: No pleural effusion or pneumothorax. HEART AND MEDIASTINUM: Cardiomediastinal silhouette is within normal limits. First november BONES AND SOFT TISSUES: Degenerative changes of the thoracic spine. Soft tissues are unremarkable. IMPRESSION:No acute cardio pulmonary abnormalities. Signed: Rosa Maria Sloan MDReport Verified Date/Time: 07/20/2020 16:21:24 [facility]OM[facility]ENSIVE METABOLIC [id number] 14:20:00 Test Item Value Reference Range Interpretation Comments TOTAL PROTEIN 7.5 gm/dL 6.0-8.3 (BEAKER) (test code = 770) ALBUMIN (BEAKER) 4.3 g/dL 3.5-5.0 (test code = 1145) ALKALINE PHOSPHATASE 90 U/L 40-150 (BEAKER) (test code = 346) BILIRUBIN TOTAL 0.6 mg/dL 0.2-1.2 (BEAKER) (test code = 377) SODIUM (BEAKER) (test 140 meq/L 136-145 code = 381) POTASSIUM (BEAKER) 4.1 meq/L 3.5-5.1 (test code = 379) CHLORIDE (BEAKER) 105 meq/L 98-107 (test code = 382) CO2 (BEAKER) (test 27 meq/L 22-29 code = 355) BLOOD UREA NITROGEN 15 mg/dL 7-21 (BEAKER) (test code = 354) CREATININE (BEAKER) 0.91 mg/dL 0.57-1.25 (test code = 358) GLUCOSE RANDOM 117 mg/dL 70-105 H (BEAKER) (test code = 652) CALCIUM (BEAKER) 9.3 mg/dL 8.4-10.2 (test code = 697) AST (SGOT) (BEAKER) 17 U/L 5-34 (test code = 353) ALT (SGPT) (BEAKER) 22 U/L 6-55 (test code = 347) EGFR (BEAKER) (test 81 mL/min/1.73 ESTIMA SULY GFR IS code = 1092) sq m NOT ACCURATE CREATININE CLEARANCE IN PREDICTING GLOMERULAR FILTRATION RATE . ESTIMATED GFR I S NOT APPLICABLE FOR DIALYSIS PATIEN ALISSA. Consumer Education Specialist ID - SYLVIA CPT/[id number] 14:14:00 Test Item Value Reference Range Interpretation Comments PROTIME (BEAKER) (test code = 13.7 seconds 11.9-14.2 759) INR (BEAKER) (test code = 370) 1.08 <=5.90 PARTIAL THROMBOPLASTIN TIME 29.2 seconds 22.5-36.0 (BEAKER) (test code = 760) Effective 02/02/2019: PT Reference Range ChangeNew: 11.9-14.2 Previous: 11.7- 14.7RECOMMENDED COUMADIN/WARFARIN INR THERAPY RANGESSTANDARD DOSE: 2.0-3.0 Includes: PROPHYLAXIS for venous thrombosis, systemic embolization; TREATMENT for venous thrombosis and/or pulmonary embolus.HIGH RISK: Target INR is2.5-3.5 for patients wiht mechanical heart valves.CBC W/PLT COUNT & AUTO [id number] 14:01:00 Test Item Value Reference Range Interpretation Comments WHITE BLOOD CELL COUNT (BEAKER) 10.3 K/ L 3.5-10.5 (test code = 775) RED BLOOD CELL COUNT (BEAKER) 4.83 M/ L 4.63-6.08 (test code = 761) HEMOGLOBIN (BEAKER) (test code = 14.8 GM/DL 13.7-17.5 410) HEMATOCRIT (BEAKER) (test code = 45.2 % 40.1-51.0 411) MEAN CORPUSCULAR VOLUME (BEAKER) 93.6 fL 79.0-92.2 H (test code = 753) MEAN CORPUSCULAR HEMOGLOBIN 30.6 pg 25.7-32.2 (BEAKER) (test code = 751) MEAN CORPUSCULAR HEMOGLOBIN CONC 32.7 GM/DL 32.3-36.5 (BEAKER) (test code = 752) RED CELL DISTRIBUTION WIDTH 13.0 % 11.6-14.4 (BEAKER) (test code = 412) PLATELET COUNT (BEAKER) (test 298 K/CU MM 150-450 code = 756) MEAN PLATELET VOLUME (BEAKER) 9.5 fL 9.4-12.4 (test code = 754) NUCLEATED RED BLOOD CELLS 0 /100 WBC 0-0 (BEAKER) (test code = 413) NEUTROPHILS RELATIVE PERCENT 66 % (BEAKER) (test code = 429) LYMPHOCYTES RELATIVE PERCENT 25 % (BEAKER) (test code = 430) MONOCYTES RELATIVE PERCENT 7 % (BEAKER) (test code = 431) EOSINOPHILS RELATIVE PERCENT 1 % (BEAKER) (test code = 432) BASOPHILS RELATIVE PERCENT 1 % (BEAKER) (test code = 437) NEUTROPHILS ABSOLUTE COUNT 6.77 K/ L 1.78-5.38 H (BEAKER) (test code = 670) LYMPHOCYTES ABSOLUTE COUNT 2.57 K/ L 1.32-3.57 (BEAKER) (test code = 414) MONOCYTES ABSOLUTE COUNT (BEAKER) 0.72 K/ L 0.30-0.82 (test code = 415) EOSINOPHILS ABSOLUTE COUNT 0.08 K/ L 0.04-0.54 (BEAKER) (test code = 416) BASOPHILS ABSOLUTE COUNT (BEAKER) 0.07 K/ L 0.01-0.08 (test code = 417) IMMATURE GRANULOCYTES-RELATIVE 0 % 0-1 PERCENT (BEAKER) (test code = 2801) RAD, CHEST, 2 [id number] 11:05:00Reason for Exam:->SOB (shortness of breath)FINAL REPORT EXAMINATION: PA and lateral views of the chest. COMPARISON: Multiple prior studies. CLINICAL HISTORY: Shortness of breath DISCUSSION: Lines/tubes: None. Lungs: Scarring in the right middle lobe. Atelectasis in the lingula. No consolidative pneumonia. Pleura: No pleural effusion or pneumothorax. Heart and mediastinum: The cardiomediastinal silhouette is normal. Bones and soft tissues: No acute bony abnormalities. Spinal cord stimulator. IMPRESSION: No acute cardiopulmonary abnormalities. Signed: Ondina Thomas Verified Date/Time: 06/18/2020 11:05:19 Reading Location: [facility] Reading Room [address] [place] [address] INDICATED URINE CULTURE 2020-06-16 15:18:47 Test Item Value Reference Range Interpretation Comments URINE CULTURE SPECIMEN NUMBER: CULTURE, URINE (test code = 471378730 630-4) SPE CIMEN NUMBER: [id number] SPECIMEN COMMEN T: URINE SOURCE: U RINE REPORT STATUS: FINAL FINAL REPORT: 06/16/2020 10-5 0,000 CFU/ML MIXED UROGENITAL KEVIN A Unless Other moreira Indicated, All Testing Perform ed At: [facility], [address] [facility] [address] Laboratory Dire ctor: Toams santiago M.D. CLI A Number [id number] Cap Accreditati on No. [facility] Center[facility], [id number] 14:59:15 Test Item Value Reference Range Interpretation Comments CULTURE, SPUTUM SPECIMEN NUMBER: CULTUR E, SPUTUM (test code = 466357135 624-7) SPEC IMEN NUMBER: [id number] SOURCE: SPUTUM REPORT STATUS: FINAL D IRECT GRAM STAIN: SPECIMEN CONTAI NS GREATER THAN 10 EPITHELIAL CELL S PER LOW POWER F IELD INDICATING OROPHARYNGEAL CONTAMINATION. FINAL REPORT: 06/16/2020 SPEC IMEN ASSESSMENT ESAU CATES OROPHARYNGEAL CONTAMIN ATION. THE SAMPLE IS N OT SLAGGER OF THE LOWER RESPIRATORY TRA CT AND THE CULTURE RESULTS W ILL NOT BE VALID. THE C ULTURE IS NOT PERFORMED;MATT GES WILL BE DELETED APPLICABLE. SPECIMEN W ILL BE RETAINED FOR TW O DAYS. Unless Otherwise Indic ated, All Testing Per formed At: [facility], [address] [place] [address] Laboratory Dire ctor: Tomas santiago M.D. CLIA Num kerrie [id number] Cap Accreditation N o. [facility] CenterURINALYSIS, COMPLETE W/REFLEX TO [id number] 10:53:46 Test Item Value Reference Range Interpretation Comments COLOR UA (test code = ISABELA YELLOW-STRAW A 5778-6) CLARITY UA (test code = CLOUDY CLEAR A 5767-9) SPECIFIC GRAVITY UA 1.005-1.035 (test code = 5811-5) LEUKOCYTE ESTERASE UA TRACE NEGATIVE A (test code = 5799-2) NITRITE UA (test code = NEGATIVE NEGATIVE 5802-4) PH UA (test code = 5.0-9.0 5803-2) PROTEIN UA (test code = 1+ NEGATIVE A 82817-4) GLUCOSE UA (test code = NEGATIVE NEGATIVE 5792-7) KETONES UA (test code = TRACE NEGATIVE A 5797-6) UROBILINOGEN UA (test <2.0 See_Comment [Auto mated message] code = 24929-5) The system [facility] generated this result transmitted ref erence range: <=2.0 M G/DL. The reference r bernie was not used to interpret this result as normal/abnor mal. BILIRUBIN UA (test code NEGATIVE NEGATIVE = 5770-3) OCCULT BLOOD UA (test NEGATIVE NEGATIVE code = 52002-0) WBC UA (test code = 5-10 See_Comment A [Automa suly message] 82413-0) The system [employer] generated this result transmitted ref erence range: 0 - 5 / HPF. The reference r bernie was not used to interpret this result as normal/abnor mal. RBC UA (test code = 3-5 See_Comment [Automa suly message] 25508-1) The system [employer] generated this result transmitted ref erence range: 0 - 5 / HPF. The reference r bernie was not used to interpret this result as normal/abnor mal. EPITHELIAL CELLS (test 0-5 See_Comment [Aut omated message] code = 64695-1) The system [facility] generated this result transmitted ref erence range: 0 - 5 / HPF. The reference r bernie was not used to interpret this result as normal/abnor mal. BACTERIA (test code = 1+ NEGATIVE A 28375-7) CRYSTALS (test code = (NOTE) NONE /HPF 5782-8) 1+ AMORPHO US CASTS, URINE (test code MODERATE NONE-TRACE /LPF A = 21334-8) OTHER (test code = (NOTE) 03441-9) MANY YEAST Unless Otherw ise Indicated, All Testing Perform ed At: [facility], [address] [place] [address] Laboratory Dire ctor: Tomas santiago M.D. CLGavino A Number [id number] [place] [address]-01 Lab Interpretation Abnormal (test code = 03223-7) [facility] Women[facility] MODIFIED [id number] 18:59:37 Test Item Value Reference Range Interpretation Comments ERYTHROCYTE See_Comment Unless SEDIMENTATION RATE Otherwise Indicated, (test code = 4537-7) All Jessica ting Performed At: [facility], [address] [place] [address] Laboratory Dire ctor: Tomas santiago M.D. CLI A Number [id number] [place] [address]-15 [Automated mess age] The system [employer] generated this result transmit suly reference range : 0 - 15 MM/HOUR. The reference range was not used to interpret this result as normal/abnormal . MANAS (test code = MANAS) BC [facility] RIGHT [facility] [id number] 07:33:48 Test Item Value Reference Range Interpretation Comments C-REACTIVE PROTEIN See_Comment H Unless (test code = 1988-5) Otherwi se Indicated, All Testing Perform ed At: [facility], [address] [place] [address] Hardware Installer: Mary FuentesIA Number [id number] Cap Accreditation N o. [id number] [Automated mess age] The system [employer] generated this result transmit suly reference range : <0.5 MG/DL. The reference range was not used to interpret this result as normal/abnormal . 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 Preintravenousaxial images of the abdomen obtained. This exam was performed according to our departmental dose-opti mization program, which includes automated exposure control, adjustment of the mA and/or kV according to patient size and/or use of interactive reconstruction technique. Heart is normal in size. Greatvessels are unremarkable. No adenopathy in the mediastinum or perihilar region. Trachea and mainstembronchus are patent. Subsegmental atelectasis is seen in the lingula, right mid, and both lower lobes. The rest of the lungs are clear. No nodular, mass lesion or airspace disease noted. No interstitial disease or bronchiectasis present. No pleural effusion or pleural based mass is seen. Liver and spleen are normal in size. Several subsegmental hypodense lesions are seen in the liver measuring up to 8 mm in size. Gallbladder is surgically absent. No biliary dilatation is noted. Pancreas and adrenals are unremarkable. Both kidneys are normal in size and functioning with prompt bilateral excretion. No hydronephrosis, solid or cystic mass is seen in either kidney. Diverticular disease is seen in the large bowel. There is wall thickening in the distal descending and sigmoid colon suggestive of colitis. Prominent submucosal fat is seen in the ascending, transverse, and descending colon. This isusually associated with inflammatory bowel disease. The small bowel is normal in caliber. Appendix is not visualized. Vascular calcification is seen in the abdominal aorta and bilateral iliac arteries.Patient is status post prostatectomy. The urinary bladder is contracted. No mass, adenopathy or ascites present. Impression: 1. Subsegmental atelectasis in the lingula, right mid, and both lower lobes.2. Nonspecific hypodense lesions in the liver.3. Wall thickening in the distal descending and sigmoidcolon suggestive of colitis.4. Nonspecific prominent submucosal fat in the ascending, transverse, and descending colon. 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 Preintravenousaxial images of the abdomen obtained. This exam was performed according to our departmental dose-opti mization program, which includes automated exposure control, adjustment of the mA and/or kV according to patient size and/or use of interactive reconstruction technique. Heart is normal in size. Greatvessels are unremarkable. No adenopathy in the mediastinum or perihilar region. Trachea and mainstembronchus are patent. Subsegmental atelectasis is seen in the lingula, right mid, and both lower lobes. The rest of the lungs are clear. No nodular, mass lesion or airspace disease noted. No interstitial disease or bronchiectasis present. No pleural effusion or pleural based mass is seen. Liver and spleen are normal in size. Several subsegmental hypodense lesions are seen in the liver measuring up to 8 mm in size. Gallbladder is surgically absent. No biliary dilatation is noted. Pancreas and adrenals are unremarkable. Both kidneys are normal in size and functioning with prompt bilateral excretion. No hydronephrosis, solid or cystic mass is seen in either kidney. Diverticular disease is seen in the large bowel. There is wall thickening in the distal descending and sigmoid colon suggestive of colitis. Prominent submucosal fat is seen in the ascending, transverse, and descending colon. This isusually associated with inflammatory bowel disease. The small bowel is normal in caliber. Appendix is not visualized. Vascular calcification is seen in the abdominal aorta and bilateral iliac arteries.Patient is status post prostatectomy. The urinary bladder is contracted. No mass, adenopathy or ascites present. Impression: 1. Subsegmental atelectasis in the lingula, right mid, and both lower lobes.2. Nonspecific hypodense lesions in the liver.3. Wall thickening in the distal descending and sigmoidcolon suggestive of colitis.4. Nonspecific prominent submucosal fat in the ascending, transverse, and descending colon. Signed: Johan Slater MDReport Verified Date/Time: 06/08/2020 18:21:26 Reading Location: [facility] C013Y CT Body Reading Room [id number] 14:11:00 Test Item Value Reference Range Interpretation Comments POC-CREATININE 0.7 mg/dL 0.6-1.3 : TESTED [facility] ([facility]) ([facility] [address] [facility] D[facility] code = 1859) A, [facility] 7 7190: Consumer Education Specialist/Techni homer ID = [id number] for EDILBERTO BOSE POC-EGFR 110 mL/min/1.73M2 ([facility]) (test code = 1860) [employer]B CULTURE + SMEAR (NON-SPUTUM)2020-03-13 08:30:00 Test Item Value Reference Range Interpretation Comments CULTURE (BEAKER) (test No acid-fast bacilli code = 1095) isolated in 42 days AFB SMEAR (BEAKER) No acid fast bacilli (test code = 994) seen AFB CULTURE + SMEAR (NON-SPUTUM)2020-03-13 08:30:00 Test Item Value Reference Range Interpretation Comments CULTURE (BEAKER) (test No acid-fast bacilli code = 1095) isolated in 42 days AFB SMEAR (BEAKER) No acid fast bacilli (test code = 994) seen PET/CT, GALLIUM 68 SKULL BASE TO [id number] 09:52:00Reason for Exam:->GASTRINOMAFINAL REPORT EXAMINATION: DOTATATE- PET/CT, 03/02/2020 10:16 AM CLINICAL HISTORY: Newly diagnosed pulmonary carcinoid tumor via transbronchial biopsy. Previously treated prostate ad enocarcinoma.INDICATION: PET/CT is obtained for initial treatment evaluation.COMPARISON: CT studies 01/20/2020 TECHNIQUE:Radiopharmaceutical: Ga-68 DotatateAdministered activity: 5.6] mCiRoute of administration: Intravenously via the right handLocalization time: 65 minutesScan extent: Vertex of the skull to the proximal thighsAdditional imaging: NoneCPT Code: 10304 FINDINGS:Head and Neck: A small focus of intense dotatate localization measuring 1.2 cm is seen along the lateral left frontal calvarium near the junction with the sphenoid wing (PET image 243, SUV = 5.5), with an associated small dural-based calcification on CT scanning. There is physiologic tracer activity in the pituitary gland. No abnormal angel activity is seen in the neck. Chest: And oval, irregular nodule is seen along the right mediastinal border in the right middle lobe inferiorly (CT image 1:30), currently measuring 2.8 x 1.7cm. This nodule is tracer-avid, with an SUV of 5.7. Additional subcentimeter nodules in the surrounding pulmonary parenchyma of the right middle lobe as well as regions of peribronchial thickening extending centrally toward the hilum are also tracer-avid. There are foci of increased angel activity in the mid right pulmonary hilum (SUV = 3.3), right paratracheal space (SUV = 3.2) and subcarinal space (SUV = 4.1). Low-grade angel uptake is present in the left pulmonary hilum (SUV = 2.4) subcentimeter bilateral axillary lymph nodes with fatty adam show faint but appreciable dotatate uptake, with an SUV of 2.2 on the right and 1.3 on the left. Additional scattered tiny pulmonary nodules are stable compared to prior CT scans, and are not visibly tracer-avid above regional background. There are scattered coronary arterial calcifications. Abdomen and Pelvis: There is physiologic distribution of radiotracer throughout the abdomen and pelvis. Homogeneous uptake is seen throughout the liver, and there isnormal uptake in the adrenal glands and pancreas. Accentuation of tracer activity in the pancreatic tail and uncinate process is a normal pattern. Postsurgical changes of prostatectomy and pelvic lymphadenectomy. Vascular calcifications. Musculoskeletal: Status post lumbar spine and left sacroiliac fusion. Degenerative changes in the lumbar spine. A neurostimulator device is in place. IMPRESSION: 1.Spiculated right middle lobe pulmonary nodule with increased dotatate localization, consistent with carcinoid tumor.2.Scattered sites of angel activity in the chest. The most intense of these in the right pulmonary hilum, right paratracheal space, and subcarinal space are suspicious for metastatic disease. Left hilar and bilateral axillary sites of uptake are lower in intensity, and favored to be reactive.3.Additional tiny pulmonary nodules remain radiographically stable compared to prior CT scans. These are not visibly tracer-avid, but may be too small for accurate characterization. Attention on follow-up CT is recommended to assure ongoing stability.4.Small dural-based focus of intense dotatate activity in the left frontal region with a small calcific mass on CT, consistent with meningioma. Signed: Terry Pitts MDReport Verified Date/Time: 03/03/2020 09:52:44 FUNGUS CULTURE + [id number] 16:02:00 Test Item Value Reference Range Interpretation Comments CULTURE (BEAKER) (test No fungus isolated in code = 1095) 28 days FUNGUS SMEAR (BEAKER) No fungi seen (test code = 1406) FUNGUS CULTURE + [id number] 16:02:00 Test Item Value Reference Range Interpretation Comments CULTURE (BEAKER) (test No fungus isolated in code = 1095) 28 days FUNGUS SMEAR (BEAKER) No fungi seen (test code = 1406) SARS-COV2/RT-PCR (HS & REF LABS)2020-02-18 04:25:00 Test Item Value Reference Range Interpretation Comments SARS-COV2/RT-PCR (test code = Negative Not Detected, Negative 5049557) SARS-COV-2 PERFORMING LAB CPL (test code = 9642298) CHROMOGRANIN [id number] 20:36:42 Test Item Value Reference Interpretation Comments Range CHROMOGRANIN A (test 114 ng/mL <96 H Test pe rformed using the code = 9811-1) Oligasis CGA-EL ELIDA-US kit. Results obtaine d byother methods cannot be used interchangeably . This test has compon ents designated by t he horse trainer as "ForResearch Us e Only". The performance characteristics of this test weredeterm ined by [facility] ([facility]). The comp onents havenot been cl eared or approved by the U.S. Food and Drug Administration( FDA). The test results ar e not intended to be used as the sole meansfor c linical diagnosis or pa tient management. [facility] is qualified toper form high complexity test ing under the Clinical LaboratoryImpro vement Amendments (CLI A). TESTING PERFORM ED AT [employer]. [address] [facility] [address], [facility] [address] [place], [place] [address] CL IA NO: [id number] Unles s Otherwise Indicated, All Testing Performed At: [facility], [address] [place] [address] Laboratory Di yuliya: Tomas santiago M.D. CLIA Number [id number] [place] [id number] Lab Interpretation Abnormal (test code = 05503-2) [facility] 02:00:10 Test Item Value Reference Range Interpretation Comments GASTRIN (test code = <10 0-100 TESTI NG PERFORMED AT [facility]) [facility], [address] [address] [place]. [id number] C DONTRELL NO. [id number] Unless Otherwis e Indicated, All Testing Per formed At: [facility], [address] [place] [address], [place] [address] Laboratory Dir robb: Lincoln Fuentes. CLIA Number [id number] [place] o. [id number] [facility] W/AUTO DIFF WITH [id number] 11:50:27 Test Item Value Reference Range Interpretation Comments WHITE BLOOD CELL COUNT See_Comment [Aut omated message] (test code = 06699-3) The sy stem which generated this result transmitted ref erence range: 3.5 - 10 .0 K/UL. The reference r bernie was not used to int erpret this result as normal/abnormal . RED BLOOD CELL COUNT See_Comment [Autom ated message] (test code = 25032-9) The sy stem which generated this result transmitted ref erence range: 4.30 - 5 .70 M/UL. The refer ence range was not u sed to interpret this result as normal/abnor mal. HEMOGLOBIN (test code = See_Comment [Au tomated message] 718-7) The system whic h generated this result transmitted ref erence range: 13.5 - 1 7.0 G/DL. The refer ence range was not u sed to interpret this result as normal/abnor mal. HEMATOCRIT (test code = 43.7 % 38-50 79247-0) MEAN CORPUSCULAR VOLUME 92.6 fL 80-99 (test code = 82500-6) MEAN CORPUSCULAR 31.8 PG 25-34 HEMOGLOBIN (test code = 77352-7) MEAN CORPUSCULAR See_Comment [Automated message] HEMOGLOBIN CONC (test The sy stem which code = 55165-7) generated th is result transmitted ref erence range: 31.0 - 3 6.0 G/DL. The refer ence range was not u sed to interpret this result as normal/abnor mal. RED CELL DISTRIBUTION 13.0 % 11.5-15 WIDTH (test code = 57420-8) NEUTROPHILS % (test 64.8 % 40-75 code = 82518-5) LYMPHOCYTES % (test 28.0 % 20-45 code = 74222-9) MONOCYTES % (test code 5.9 % 4-12 = 70701-9) EOSINOPHILS % (test 0.4 % 0-7 code = 83397-4) BASOPHILS % (test code 0.9 % 0-2 = 49799-4) PLATELET COUNT (test See_Comment Unless code = 02846-9) Otherwise In dicated, All Testing Per formed At: [facility], [address] [place] [address] Laboratory Dire ctor: Tomas santiago M.D. CLIA Numb er [id number] Cap Accreditation [place] o. [id number] [Auto mated message] The sy stem which generated this result transmit suly reference range : 130 - 400 K/UL. The r eference range was not u sed to interpret this result as normal/abnor mal. [facility] Center[facility]PREHENSIVE METABOLIC [id number] 11:23:10 Test Item Value Reference Range Interpretation Comments GLUCOSE (test code = See_Comment H [Autom ated message] 3655-7) The system [employer] generated this result transmitted ref erence range: 70 - 99 MG/DL. The reference r bernie was not used to interpret this result as normal/abnor mal. BLOOD UREA NITROGEN See_Comment [Automa suly message] (test code = 3091-6) The sys tem which generated this result transmitted ref erence range: 8 - 23 M G/DL. The reference r bernie was not used to interpret this result as normal/abnor mal. CREATININE (test code = See_Comment [Au tomated message] 2160-0) The system [employer] generated this result transmitted ref erence range: 0.80 - 1 .40 MG/DL. The refe rence range was not u sed to interpret this result as normal/abnor mal. EGFR AA (test code = See_Comment [Autom ated message] 22041-5) The system [employer] generated this result transmitted ref erence range: >60 ML/MIN/1.73. Th e reference range was not used to int erpret this result as normal/abnormal . EGFR (test code = See_Comment [Automate d message] 00918-8) The system [employer] generated this result transmitted ref erence range: >60 ML/MIN/1.73. Th e reference range was not used to int erpret this result as normal/abnormal . BUN/CREAT RATIO (test See_Comment [Auto mated message] code = 3097-3) The system [facility] generated this result transmitted ref erence range: 6 - 28 R ATIO. The reference r bernie was not used to interpret this result as normal/abnor mal. SODIUM (test code = See_Comment [Automa suly message] 2951-2) The system [facility] generated this result transmitted ref erence range: 133 - 14 6 MEQ/L. The refe rence range was not u sed to interpret this result as normal/abnor mal. POTASSIUM (test code = See_Comment [Aut omated message] 2823-3) The system [facility] generated this result transmitted ref erence range: 3.5 - 5. 4 MEQ/L. The refe rence range was not u sed to interpret this result as normal/abnor mal. CHLORIDE (test code = See_Comment [Auto mated message] 2075-0) The system [facility] generated this result transmitted ref erence range: 95 - 107 MEQ/L. The reference r bernie was not used to interpret this result as normal/abnor mal. CO2 (test code = See_Comment [Automated message] 1963-8) The system [facility] generated this result transmitted ref erence range: 19 - 31 MEQ/L. The reference r bernie was not used to interpret this result as normal/abnor mal. CALCIUM (test code = See_Comment [Autom ated message] 77949-3) The system [facility] generated this result transmitted ref erence range: 8.5 - 10 .5 MG/DL. The refe rence range was not u sed to interpret this result as normal/abnor mal. PROTEIN TOTAL (test See_Comment [Automa suly message] code = 5295-2) The system [facility] generated this result transmitted ref erence range: 6.1 - 8. 3 G/DL. The reference r bernie was not used to interpret this result as normal/abnor mal. ALBUMIN (test code = See_Comment [Autom ated message] 97628-9) The system [facility] generated this result transmitted ref erence range: 3.5 - 5. 2 G/DL. The reference r bernie was not used to interpret this result as normal/abnor mal. GLOBULINS, SERUM, TOTAL See_Comment [Au tomated message] (test code = 40514-8) The sy stem which generated this result transmitted ref erence range: 1.9 - 3. 7 G/DL. The reference r bernie was not used to interpret this result as normal/abnor mal. A/G RATIO (test code = See_Comment [Aut omated message] 1759-0) The system ic h generated this result transmitted ref erence range: 1.0 - 2. 6 RATIO. The refe rence range was not u sed to interpret this result as normal/abnor mal. BILIRUBIN TOTAL (test See_Comment [Auto mated message] code = 1975-2) The system ich generated this result transmitted ref erence range: <=1.2 MG /DL. The reference r bernie was not used to interpret this result as normal/abnor mal. ALKALINE PHOSPHATASE 101 U/L 40-125 (test code = 6768-6) AST (SGOT) (test code = 29 U/L 9-50 1920-8) ALT (SGPT) (test code = 43 U/L 5-50 Unless 1744-2) Otherwise Indic ated, All Testing Per formed At: [facility], [address] [place] [address] Laboratory Dire ctor: Tomas santiago M.D. CLIA Num kerrie [id number] [place]reditation [place] o. [id number] Lab Interpretation Abnormal (test code = 86485-7) [facility] CenterTISSUE [id number] 10:13:00Surgical Pathology Report Case: [id number] Authorizing Provider: Aureliano Wagner MD Collected: 01/25/2020 09:44 AM Ordering Location: [facility] Received: 01/25/2020 02:09 PM SERVICES Pathologist: [...] (SEE COMMENT) Signing Pathologist Direct Phone Line: [phone] signed by Queenie Olvera MD on 01/30/2020 at 10:13 AMBoth specimens are extensively crushed without discernable histologic features. Mitotic activity cannot be evaluated. No necrosis is seen. Immunostain for TTF1, synaptophysin, chromogranin are positive; while PSA, PAP is negative. Ki-67 proliferative index is approximately 1%. Findings support the above diagnosis.Please correlate with results of concurrently obtained cytology specimens ([id number], 1224- 79).[id number] nodule; mediastinal lymphadenopathy A. Lung, Right Middle Lobe Transbronchial biopsy #1B. Lung, Right Middle Lobe Transbronchial biopsy #2Specimen A: The specimen is received in a formalin- filled container and labeled with the patient's information and labeled "Right middle lobe lung transbronchial biopsy #1" and consists of four white 0.3 cm fragments; eight red 0.1 cm fragments and ten red 0.2 cm fragments submitted entirely in A1 using a mesh bag. SpecimenB: The specimen is received in a formalin-filled [...] B1 using a mesh bag.Performed.The interpretation of thiscase included the use of immunohistochemistry or special stains.Control Slides Examined: In-house known positive controls were evaluated along with the test tissue. These control slides run alongsideof the patients sample show appropriate staining. Internal positive and negative controls when available are evaluated Immunohistochemistry technical testing was performed at [facility], Pathology Laboratory where it was [...] qualified to perform high complexity clinical laboratory testing.[facility], Department of Pathology, [address] [place] [address], [facility] [facility], [facility] of [facility], [address] [place] [address], [facility], Department of Pathology, [address] [place] [address], WLTRNSDBLE OBTAINED CULTURE + GRAM [id number] 11:20:00 Test Item Value Reference Range Interpretation Comments CULTURE (BEAKER) (test code No growth = 1095) GRAM STAIN RESULT (BEAKER) No WBCs (test code = 1123) GRAM STAIN RESULT (BEAKER) No organisms seen (test code = 48368) SURGICALLY OBTAINED CULTURE + GRAM [id number] 11:20:00 Test Item Value Reference Range Interpretation Comments CULTURE (BEAKER) (test code No growth = 1095) GRAM STAIN RESULT (BEAKER) 1+ WBCs (test code = 1123) GRAM STAIN RESULT (BEAKER) No organisms seen (test code = 34196) FINE NEEDLE ASPIRATE BY [id number] 15:24:00Medical Cytology Report Case: [id number] Authorizing Provider: Aureliano Wagner MD Collected: 01/25/2020 10:20 AM Ordering Location: [facility] Received: 01/25/2020 11:25 AM SERVICES Pathologist: Amee Reich MD Specimen: Lymph Node, Subcarinal, Station 7 LYMPH NODE, SUBCAR INAL, STATION 7, FNA BY CLINICIAN (CYTOSPINS AND CELL BLOCK OF ASPIRATE): - FEW SPINDLE CELLS, COMPATIBLE WITH METASTATIC CARCINOID TUMOR (SEE COMMENT) Signing Pathologist Direct Phone Line: [phone] signed by Amee Reich MD on 01/27/2020 [...] elements. Please also see surgical pathology report [id number] and cytopathology reports [id number], and 1220 through 1226.93583, 40891, 35548, 75755 x 3, 48380 x 2Lung nodule; mediastinal lymphadenopathyLYMPH NODE, SUBCARINAL, STATION 7 FNAReceived 37 ml cytorich red fixative sample; prepared cell block(A2) and 2 cytospinsCollected: [id number] 0Received: [id number] interpretation of this case included the use of immunohistochemistry or specialstains.Please see the immunohistochemistry results in the COMMENT section. Control Slides Examined:In-house known positive controls were evaluated along with the test tissue. These control slides run alongside of the patients sample show appropriate staining. Internal positive and negative controlswhen available are evaluated Immunohistochemistry technical testing was performed at [facility], Pathology Laboratory where it was [...] qualified to perform high complexity clinical laboratory testing.[facility], Department of Pathology, [address] [place] [address], [facility]dsfmgWest [facility], Department of Pathology, [address] [place] [address], [facility]pnykWest [facility], Department of Pathology, [address] [place] [address], AQYU NEEDLE ASPIRATE BY EBUS 2020-01-27 14:11:00Medical Cytology Report Case: [id number] Authorizing Provider: Aureliano Wagner MD Collected: 01/25/2020 10:43 AM Ordering Location: [facility] Received: 01/25/2020 11:24 AM SERVICES Pathologist: Amee Reich MD Specimen: Lymph Node, Interlobar, Right, Station 11R LYMPH NODE, INTERLOBAR, RIGHT, STATION 11R, FNA BY CLINICIAN (CYTOSPINS AND CELL BLOCK OF ASPIRATE): - SATISFACTORY FOR EVALUATION - NEGATIVE FOR METASTATIC MALIGNANT CELLS - EVIDENCE OF LYMPH NODE SAMPLING (POLYMORPHOUS LYMPHOID TISSUE PRESENT) Signing Pathologist Direct Phone Line: [phone] signed by Amee Reich MD on 01/27/2020 at 2:11 PMPlease also see surgical pathology report [id number] and cytopathology reports [id number], and 1220 through 1225.03499, 57204Sdlb nodule; mediastinal lymphadenopathyLYMPH NODE, INTERLOBAR, RIGHT, STATION 11R FNAReceived 35 ml cytorich red fixative sample; prepared cell block(A2) and 2 cytospinsCollected: [id number]: [id number] interpretation of this case included the use of immunohistochemistry or special stains.Control Slides Examined: In-house known positive controls were evaluated along with the test tissue. These control slides run alongside of the patients sample show appropriate staining. Internal positive and negative controls when available are evaluated Immunohistochemistry technical testing was performed at [facility], Pathology Laboratory where it was [...] as qualified to perform high complexity clinicallaboratory testing.[facility], Department of Pathology, [address] [place] [address], [facility]qao[facility], Department of Pathology, [address] [place] [address], [facility]umszlWest [facility], Department of Pathology, [address] [place] [address], MHYR NEEDLE ASPIRATE BY [id number] 14:05:00Medical Cytology Report Case: [id number] Authorizing Provider: Aureliano Wagner MD Collected: 01/25/2020 10:31 AM Ordering Location: [facility] Received: 01/25/2020 11:25 AM SERVICES Pathologist: Amee Reich MD Specimen: Lymph Node, Lower Paratracheal, Right, Station 4R LYMPH NODE, LOWERPARATRACHEAL, RIGHT, STATION 4R, FNA BY CLINICIAN (CYTOSPINS AND CELL BLOCK OF ASPIRATE): - SATISFACTORY FOR EVALUATION - NEGATIVE FOR METASTATIC MALIGNANT CELLS - EVIDENCE OF LYMPH NODE SAMPLING (POLYMORPHOUS LYMPHOID TISSUE PRESENT) Signing Pathologist Direct Phone Line: [phone] signed by Amee Reich MD on 01/27/2020 at 2:05 PMPlease also see surgical pathology [id number] and cytopathology reports [id number], and 1220 through 1226.38942, 07485Wzkl nodule; mediastinal lymphadenopathyLYMPH NODE, LOWER PARATRACHEAL, RIGHT, STATION 4R FNAReceived 36 ml cytorich red fixative sample; prepared cell block(A2) and 2 cytospinsCollected: [id number]: [id number] interpretation of this case included the use of immunohistochemistry or special stains.Control Slides Examined: In-house known positive controls were evaluated along with the test tissue. These control slides run alongside of the patients sample show appropriate staining. Internal positive and negative controls when available are evaluated Immunohistochemistry technical testing was performed at [facility], Pathology Laboratory where it was developed and [...] qualified to perform high complexity clinical laboratory testing.[facility], Department of Pathology, [address] [place] [address], [facility]mqrezWest [facility], Department of Pathol ogy, [address] [place] [address], [facility]ixyyWest [facility], Department of Pathology, [address] [place] [address], FCBW NEEDLE ASPIRATE BY [id number] 13:58:00Medical Cytology Report Case: [id number] Authorizing Provider: Aureliano Wagner MD Collected: 01/25/2020 10:16 AM Ordering Location: [facility] Received: 01/25/2020 11:25 AM SERVICES Pathologist: Amee Reich MD Specimen: Lymph Node, Lower Paratracheal, Left, Station 4L LYMPH NODE, LOWERPARATRACHEAL, LEFT, STATION 4L, FNA BY CLINICIAN (CYTOSPINS AND CELL BLOCK OF ASPIRATE): - SATISFACTORY FOR EVALUATION - NEGATIVE FOR METASTATIC MALIGNANT CELLS - EVIDENCE OF LYMPH NODE SAMPLING ( POLYMORPHOUS LYMPHOID TISSUE PRESENT) Signing Pathologist Direct Phone Line: [phone] signed by Amee Reich MD on 01/27/2020 at 1:58 PMPlease also see surgical pathology report [id number] and cytopathology reports [id number], and 1220 through 1226.31104, 55996Gzkf nodule; mediastinal lymphadenopathyLYMPH NODE, LOWER PARATRACHEAL, LEFT, STATION 4L FNAReceived 35 ml cytorich red fixative sample; prepared cell block(A2) and 2 cytospinsCollected: [id number]: [id number] interpretation of this case included the use of immunohistochemistry or special stains.Control Slides Examined:In-house known positive controls were evaluated along with the test tissue. These control slides run alongside of the patients sample show appropriate staining. Internal positive and negative controlswhen available are evaluated Immunohistochemistry technical testing was performed at [facility], Pathology Laboratory where it was [...] qualified to perform high complexity clinical laboratory testing.[facility], Department of Pathology, [address] [place] [address], [facility]gkpiWest [facility], Department of Patholog y, [address] [place] [address], JlujjmWest [facility], Department of Pathology, [address] [place] [address], WHMW NEEDLE ASPIRATE BY [id number] 13:52:00Medical Cytology Report Case: [id number] Authorizing Provider: Aureliano Wagner MD Collected: 01/25/2020 10:08 AM Ordering Location: [facility] Received: 01/25/2020 11:24 AM SERVICES Pathologist: Amee Reich MD Specimen: Lymph Node, Interlobar, Left, Station 11L LYMPH NODE, INTERLOBAR, LEFT, STATION 11L, FNA BY CLINICIAN (CYTOSPINS AND CELL BLOCK OF ASPIRATE): - SATISFACTORY FOR EVALUATION - NEGATIVE FOR METASTATIC MALIGNANT CELLS - EVIDENCE OF LYMPH NODE SAMPLING (POLYMORPHOUS LYMPHOID TISSUE PRESENT) Signing Pathologist Direct Phone Line: [phone] signed by Amee Reich MD on 01/27/2020 at 1:52 PMPlease also see surgical pathology report [id number] and cytopathology reports [id number], and 1220 through 1226.75891, 43158Wkpi nodule; mediastinal lymph adenopathyLYMPH NODE, INTERLOBAR, LEFT, STATION 11L FNAReceived 35 ml cytorich red fixative sample; prepared cell block(A2) and 2 cytospinsCollected: [id number]: [id number] interpretation of this case included the use of immunohistochemistry or special stains.Control Slides Examined: In-house known positive controls were evaluated along with the test tissue. These control slides run alongside ofthe patients sample show appropriate staining. Internal positive and negative controls when available are evaluated Immunohistochemistry technical testing was performed at [facility], Pathology Laboratory where it was [...] qualified to perform high complexity clinical laboratory testing.[facility], Department of Pathology, [address] [place] [address], BkzrmwWest [facility], Department of Pathology, [address] [place] [address], JsqrraWest [facility], Department of Pathology, [address] [place] [address], [id number] 13:42:00Medical Cytology Report Case: [id number] Authorizing Provider: Aureliano Wagner MD Collected: 01/25/2020 10:14 AM Ordering Location: [facility] Received: 01/25/2020 11:24 AM SERVICES Pathologist: Amee Reich MD Specimen: Lung, Right Middle Lobe, BAL LUNG, RIGHT MIDDLE LOBE, BAL (CYTOSPINS): - RARE CLUSTERS OF ATYPICAL SPINDLED CELLS, SUGGESTIVE OF CARCINOID TUMOR (SEE COMMENT) Signing Pathologist Direct Phone Line: [phone] signed by Amee Reich MD on 01/27/2020 at 1:42 PMCytospins and cell block sections show rare spindle cells, morp hologically similar to the lesional cells seen in L30-8921. Further analysis is precluded due to thesimilar morphologic features of some bronchial epithelial cells and a lack of cell block section forfurther evaluation. Please also see surgical pathology report [id number] and cytopathology reports [id number], and 1220 through 1226.64826Nlhk nodule; mediastinal lymphadenopathyLUNG, RIGHT MIDDLE LOBE BALReceived 5 ml bloody fluid; prepared 4 cytospinsCollected: [id number]: [id number]y City Hospital, Department of Pathology, [address] [place] [address], [facility]npku[facility], [facility] of [facility]ology, [address] [place] [address], ThebcdWest [facility], Department of Pathology, [address] [place] [address], TZOGLZOG 2020-01-27 13:41:00Medical Cytology Report Case: [id number] Authorizing Provider: Aureliano Wagner MD Collected: 01/25/2020 09:36 AM Ordering Location: [facility] PERIOPERATIVE Received: 01/25/2020 11:24 AM SERVICES Pathologist: Amee Reich MD Specimen: Lung, Right Middle Lobe LUNG, RIGHT MIDDLE LOBE, BRONCHIAL BRUSHING (CYTOSPINS AND CELL BLOCK): - FEW CLUSTERS OF ATYPICAL SPINDLED CELLS, COMPATIBLE WITH CARCINOID TUMOR (SEE COMMENT) Signing Pathologist Direct Phone Line: [phone] signed by Amee Reich MD on 01/27/2020 at 1:41 PMCytospins and cell block sections show a few spindle cells, morphologically similar to the lesional cells seen in [id number]. Please also see surgical pathology report [id number] and cytopathology reports [id number], and 1221 through 1226.89561, 83281Hgwm nodule; mediastinal lymphadenopathyLUNG, RIGHT MIDDLE LOBE BRONCHIAL BRUSHINGReceived 1 brush tip in 30 ml cytorich red fixative; prepared cell block(A2) of red floating bloody clot and2 cytospinsCollected: [id number]: [id number]y City Hospital, Departmentof Pathology, [address] [place] [address], [facility]mcesn[facility], Department of Pathology, [address] [place] [address], ZmzbxdWest [facility], Department of Pathology, [address] [place] [address], GEPV NEEDLE ASPIRATE BY [id number] 13:41:00Medical Cytology Report Case: [id number] Authorizing Provider: Aureliano Wagner MD Collected: 01/25/2020 09:19 AM Ordering Location: [facility] PERIOPERATIVE Received: 01/25/2020 09:26 AM SERVICES Pathologist: Amee Reich MD Specimen: Lung, Right Middle Lobe LUNG, RIGHT MIDDLE LOBE, FNA BY CLINICIAN (DIRECT SMEARS AND CELL BLOCK OF ASPIRATE): - NEUROENDOCRINE PROLIFERATION, COMPATIBLE WITH CARCINOID TUMOR (SEE COMMENT) Signing Pathologist Direct Phone Line: [phone] Smears are paucicellular while the cell block [...] recommended. Please also see surgical pathology report [id number] and cytopathology [id number] through 1226.34671, 44566, 07057, 67812, 8841 x 3, 77125Yeuw nodule; mediastinal lymphadenopathyLUNG, RIGHT MIDDLE LOBE FNAPrepared 6 direct smear slides and cell block(A2) from 43 ml cytorichred fixative sampleCollected: [id number]: [id number] ONLY (9:37AM, 01/25/20, NS)The interpretation of this case included the use of immunohistochemistry or special stains.Control Slides Examined: In-house known positive controls were evaluated along with the test tissue. These control slides runalongside of the patients sample show appropriate staining. Internal positive and negative controls when available are evaluated Immunohistochemistry technical testing was performed at [facility], Pathology Laboratory where it was [...] qualified to perform high complexity clinical laboratory testing.[facility], Department of Pathology, [address] [place] [address], [facility], [facility], [address] [place] [address], NnpgvgWest Valley [facility], Department of Pathology, [address] [place] [address], [place] [address], KPKP FNA [id number] 13:00:00 Test Item Value Reference Range Interpretation Comments CYTOLOGY RESULT POINTER See Separate Report (BEAKER) (test code = 2629) EBUS FNA [id number] 13:00:00 Test Item Value Reference Range Interpretation Comments CYTOLOGY RESULT POINTER See Separate Report (BEAKER) (test code = 2629) EBUS FNA [id number] 13:00:00 Test Item Value Reference Range Interpretation Comments CYTOLOGY RESULT POINTER See Separate Report (BEAKER) (test code = 2629) EBUS FNA [id number] 13:00:00 Test Item Value Reference Range Interpretation Comments CYTOLOGY RESULT POINTER See Separate Report (BEAKER) (test code = 2629) CYTOLOGY [id number] 13:00:00 Test Item Value Reference Range Interpretation Comments CYTOLOGY RESULT POINTER See Separate Report (BEAKER) (test code = 2629) EBUS FNA [id number] 13:00:00 Test Item Value Reference Range Interpretation Comments CYTOLOGY RESULT POINTER See Separate Report (BEAKER) (test code = 2629) FINE NEEDLE ASPIRATE (FNA) [id number] 13:00:00 Test Item Value Reference Range Interpretation Comments CYTOLOGY RESULT POINTER See Separate Report (BEAKER) (test code = 2629) CYTOLOGY [id number] 13:00:00 Test Item Value Reference Range Interpretation Comments CYTOLOGY RESULT POINTER See Separate Report (BEAKER) (test code = 2629) RAD, CHEST, 1 VIEW, NON [id number] 11:47:00Reason for exam:->s/p RML TBBX, rule out PTXFINAL REPORT INDICATION: s/p RML TBBX, rule out PTX COMPARISON: None TECHNIQUE: Single frontal view of the chest. FINDINGS: Lungs and pleura: Persistent basilar subsegmental atelectasis. No effusion.Heart and mediastinum: Normal heart size. Unremarkable mediastinal contours.Osseous structures: No acute abnormality.Other: PICC tip overlies the SVC. ET tube has been removed IMPRESSION: No pneumothorax. Signed: Krystle De La Rosa Verified Date/Time: 01/25/2020 11:47:05 Reading Location: [facility] Radiology Reading Room EBUS FNA [id number] 11:00:00 Test Item Value Reference Range Interpretation Comments CYTOLOGY RESULT POINTER See Separate Report (BEAKER) (test code = 2629) FL, FLUORO, NON-SPECIFIC, UP TO 1 [id number] 10:15:00Reason for exam:- >Super DFINAL REPORT A fluoroscopic unit was utilized for a procedure performed in the operating room. No interpretation was requested. Please refer to the operative report regarding findings. Please refer to PACS for patient radiation dose information. Signed: Krystle De La Rosa Verified Date/Time: 01/25/2020 10:15:14 Reading Location: [facility] Radiology Reading Room COMPREHENSIVE METABOLIC [id number] 07:22:00 Test Item Value Reference Range Interpretation [...] hemolyzed EGFR (BEAKER) (test 93 mL/min/1.73 ESTIMA SULY GFR IS code = 1092) sq m NOT ACCURATE CREATININE CLEARANCE IN PREDICTING GLOMERULAR FILTRATION RATE . ESTIMATED GFR I S NOT APPLICABLE FOR DIALYSIS PATIEN TS. Consumer Education Specialist ID - BSPROTHROMBIN TIME/[id number] 07:11:00 Test Item Value Reference Range Interpretation [...] INR is2.5-3.5 for patients wiht mechanical heart valves.[id number] 07:11:00 Test Item Value Reference Range Interpretation Comments PARTIAL THROMBOPLASTIN TIME 27.1 seconds 22.5-36.0 (BEAKER) (test code = 760) CBC W/PLT COUNT & AUTO [id number] 07:04:00 Test Item Value Reference Range Interpretation [...] code = 2801) CT, CHEST, WITHOUT IV [id number] 16:04:00FINAL REPORT CT of the chest, without [...] Benavideseport Verified Date/Time: 01/20/2020 16:04:10 Reading Location: [address] Ortho Consult Reading Room CT, CHEST, WITH [id number] 12:17:00FINAL REPORT CT Chest with contrast History:Right [...] for evaluation of these nodules. Signed: Kevin Clementeeport Verified Date/Time: 01/13/2020 12:17:46 Reading Location: [address] Consult Reading Room Electronically signed by: Prciilla ZENG 01/13/2020 12:17 PMCT, [id number] 08:40:00Please specify:->Renal Stone ProtocolFINAL REPORT TECHNIQUE: CT [...] is seen on axial image 100. There elida single residual right lower pole nonobstructing stone [...] terminate before entering the spinal canal. Signed: Marcela Gavin MDReport Verified Date/Time: 01/13/2020 08:40:38 Reading Location: [facility] Diagnostic Imaging Reading Room - [place] [address] 112 BASIC METABOLIC [id number] 05:22:00 Test Item Value Reference Range Interpretation [...] 697) EGFR (BEAKER) (test 74 mL/min/1.73 ESTIMA SULY GFR IS code = 1092) sq m NOT ACCURATE CREATININE CLEARANCE IN PREDICTING GLOMERULAR FILTRATION RATE . ESTIMATED GFR I S NOT APPLICABLE FOR DIALYSIS PATIEN TS. Consumer Education Specialist ID - PIAYA LCBC W/PLT COUNT & AUTO [id number] 04:54:00 Test Item Value Reference Range Interpretation [...] (BEAKER) (test code = 2801) BASIC METABOLIC [id number] 17:03:00 Test Item Value Reference Range Interpretation [...] 697) EGFR (BEAKER) (test 89 mL/min/1.73 ESTIMA SULY GFR IS code = 1092) sq m NOT ACCURATE CREATININE CLEARANCE IN PREDICTING GLOMERULAR FILTRATION RATE . ESTIMATED GFR I S NOT APPLICABLE FOR DIALYSIS PATIEN TS. Consumer Education Specialist ID - DBRAD, CHEST, 1 VIEW, NON [id number] 16:59:00Reason for exam:- >to rule out pneumothoraxShould [...] in size. No acute bony abnormality. Signed: Marcela Gavin Verified Date/Time: 01/12/2020 16:59:55 Reading Location: [address] Ortho Consult Reading Room HEMOGLOBIN AND [id number] 16:48:00 Test Item Value Reference Range Interpretation Comments HEMOGLOBIN (BEAKER) (test code = 12.7 GM/DL 13.7-17.5 L 410) HEMATOCRIT (BEAKER) (test code = 39.2 % 40.1-51.0 L 411) Consumer Education Specialist ID - [id number], FLUORO, NON-SPECIFIC, UP TO 1 [id number] 16:21:00 Reason for exam:->PCNLFINAL REPORT A fluoroscopic unit was utilized for a procedure performed in the operating room. No interpretation was requested. Please refer to the operative report regarding findings. Please refer to PACS for patient radiation dose information. Signed: Rosa Maria Sloan MDReport Verified Date/Time: 01/12/2020 16:21:19 Reading Location: [address] Radiology Reading Room SARS-COV2/RT-PCR ([facility])2020-01-11 11:20:00 Test Item Value Reference Range Interpretation Comments SARS-COV2/RT-PCR (test code = Negative Not Detected, Negative 1515258) SARS-COV-2 PERFORMING LAB CPL (test code = 3712586) BLOOD [id number] 14:00:00 Test Item Value Reference Range Interpretation Comments CULTURE (BEAKER) (test No growth in 5 days code = 1095) BLOOD [id number] 14:00:00 Test Item Value Reference Range Interpretation Comments CULTURE (BEAKER) (test No growth in 5 days code = 1095) BLOOD [id number] 14:02:00 Test Item Value Reference Range Interpretation Comments CULTURE (BEAKER) A From Aerobi c Bottle (test code = Only Same organ ism has 1095) been isolated f rom cultures(s) of the same body site and collection date . Repeat identifi cation and susceptibil ity testing perform ed only after consultat ion with the clinic al microbiology laboratory.Refe r to previous cultur e ofProteus mirabilisESBL P ositive GRAM STAIN From aerobic RESULT (BEAKER) bottle only: (test code = gram variable 1123) rods BLOOD [id number] 14:01:00 Test Item Value Reference Range Interpretation [...] bottle only: 1123) gram variable rods SARS-COV2/RT-PCR ([facility])2020-01-08 10:40:00 Test Item Value Reference Range Interpretation Comments SARS-COV2/RT-PCR (test code = Negative Not Detected, Negative 9640326) SARS-COV-2 PERFORMING LAB CPL (test code = 8242339) RAD, CHEST, 1 VIEW, NON [id number] 14:38:00Reason for exam:->PICC LINE PLACEMENTShould this be [...] are seen in the spine. Signed: Ida Jenkins MDReport Verified Date/Time: 01/06/2020 14:38:59 Reading Location: [address] Radiology Reading Room ANG, NEPHROSTOMY, PERC, EXTERNAL [id number] 13:01:00Reason for exam:->needs PCN on the right for urgent decompressionFINAL REPORT Procedure: Percutaneous nephrostomy catheter placement. History: Suspected obstructed infected right kidney. Decorating Inspector: Jonas Ibarra M.D. Editorial Assistant: Noemi hale M.D. Modality: Ultrasound and fluoroscopy. [...] sequential dilatation of the tract, an 8.5 Wallisian nephrostomy catheter was placed, pigtail locked in [...] above. Impression:Successful ultrasound and fluoroscopic guided 8.5 Wallisian nephrostomy catheter placement in the right kidney via a posterior superior calyx as described above. Further management dictated by the clinical scenario. The nephrostomy catheter(s) should be exchanged at the latest in three months. Thank you for the opportunity to assist in the care of your patient. Signed: Jonas Ibarra MDReport Verified Date/Time: 01/06/2020 13:01:05 Reading Location: [place] [id number] Angio Body Reading Room BASI METABOLIC [id number] 06:50:00 Test Item Value Reference Range Interpretation [...] S NOT APPLICABLE FOR DIALYSIS PATIEN TS. Consumer Education Specialist ID - EMERSONCBC W/PLT COUNT & AUTO [id number] 06:45:00 Test Item Value Reference Range Interpretation [...] (test code = 2801) BLOOD CULTURE IDENTIFICATION [id number] 09:34:00 Test Item Value Reference Range Interpretation Comments LISTERIA MONOCYTOGENES Not detected Not detected (test code = 0604989) STAPHYLOCOCCUS (test code Not detected Not detected = 5893733) STAPHYLOCOCCUS AUREUS Not detected Not detected (test code = 5414326) STREPTOCOCCUS (test code = Not detected Not detected 3709207) STREPTOCOCCUS AGALACTIAE Not detected Not detected (GROUP B) (test code = 8075048) STREPTOCOCCUS PNEUMONIAE Not detected Not detected (test code = 4841543) STREPTOCOCCUS PYOGENES Not detected Not detected (GROUP A) (test code = 2132367) ACINETOBACTER BAUMANNII Not detected Not detected (test code = 3533804) HAEMOPHILUS INFLUENZAE Not detected Not detected (test code = 5738483) NEISSERIA MENINGITIDIS Not detected Not detected (test code = 3141062) ENTEROBACTERIACEAE (test Ple ase refer to code = 8220162) culture resu lts for ID and susceptibilitie s.. ENTEROBACTER CLOACOE Not detected Not detected COMPLEX (test code = 3210056) KLEBSIELLA OXYTOCA (test Not detected Not detected code = 0976016) KLEBSIELLA PNEUMONIAE Not detected Not detected (test code = 1650) PROTEUS (test code = Please refer to 7199656) culture results for ID and susceptibilitie s.. SERRATIA MARCESCENS (test Not detected Not detected code = 4671338) ELISABETH ALBICANS (test Not detected Not detected code = 2205116) ELISABETH GLABRATA (test Not detected Not detected code = 7754872) ELISABETH KRUSEI (test code Not detected Not detected = 1591412) ELISABETH PARAPSILOSIS (test Not detected Not detected code = 9050720) ELISABETH TROPICALIS (test Not detected Not detected code = 5285703) ESCHERICHIA COLI (test Not detected Not detected code = 8215180) METHICILLIN-RESISTANCE GENE (test code = 9880571) VANCOMYCIN-RESISTANCE GENE (test code = 5190366) CARBAPENEM-RESISTANCE GENE Not detected Not detected (test code = 8628655) ENTEROCOCCUS-BEAKER (test Not detected Not detected code = 0859749) PSEUDOMONAS Not detected Not detected AERUGINOSA-BEAKER (test code = 7575752) Other bacteria and resistance markers not targeted [...] [facility] Molecular Diagnostics Laboratory using the [employer] Blood Culture ID Panel. It is FDA cleared and has been verified and approved by the [facility] Molecular Diagnostics Laboratory for clinical use. This laboratory is CLIA-certified and College ofAmerican Pathologists (CAP)-accredited to perform high complexity testing.POCT-GLUCOSE [id number] 07:21:00 Test Item Value Reference Range Interpretation Comments POC-GLUCOSE METER 100 mg/dL 70-110 : TESTED A T [facility] 6720 (BEAKER) (test code = RADHA Tafoya [facility], 1538) [address]: Consumer Education Specialist/Techni homer ID = [id number] for MAYELA AMARO BASIC METABOLIC [id number] 05:16:00 Test Item Value Reference Range Interpretation [...] 697) EGFR (BEAKER) (test 89 mL/min/1.73 ESTIMA SULY GFR IS code = 1092) sq m NOT ACCURATE CREATININE CLEARANCE IN PREDICTING GLOMERULAR FILTRATION RATE . ESTIMATED GFR I S NOT APPLICABLE FOR DIALYSIS PATIEN TS. Consumer Education Specialist ID - LACBC W/PLT COUNT & AUTO [id number] 04:48:00 Test Item Value Reference Range Interpretation [...] PERCENT (BEAKER) (test code = 2801) POCT-GLUCOSE [id number] 21:37:00 Test Item Value Reference Range Interpretation Comments POC-GLUCOSE METER 128 mg/dL 70-110 H : TESTED A T [facility] 6720 (BEAKER) (test code = [facility], 153) [address]: Consumer Education Specialist/Techni homer ID = [id number] for VEGA GODFREY MAYELA POCT-GLUCOSE [id number] 17:12:00 Test Item Value Reference Range Interpretation Comments POC-GLUCOSE METER 110 mg/dL 70-110 : TESTED A T [facility] 6720 (BEAKER) (test code [facility], = 1538) [address]: Consumer Education Specialist/Techni homer ID = [id number] for LATSAADIA HURDY POCT-GLUCOSE [id number] 11:22:00 Test Item Value Reference Range Interpretation Comments POC-GLUCOSE METER 89 mg/dL 70-110 : TESTED A T [facility] 6720 (BEAKER) (test code = [facility], 153) [address]: Consumer Education Specialist/Techni homer ID = [id number] for GRAN T, TIEARA POCT-GLUCOSE [id number] 06:18:00 Test Item Value Reference Range Interpretation Comments POC-GLUCOSE METER 106 mg/dL 70-110 : TESTED A T [facility] 6720 (BEAKER) (test code = [facility], 153) [address]: Consumer Education Specialist/Techni homer ID = [id number] for GISSELL HUMPHREY CBC W/PLT COUNT & AUTO [id number] 06:03:00 Test Item Value Reference Range Interpretation [...] (BEAKER) (test code = 2801) BASIC METABOLIC [id number] 05:55:00 Test Item Value Reference Range Interpretation [...] 697) EGFR (BEAKER) (test 73 mL/min/1.73 ESTIMA SULY GFR IS code = 1092) sq m NOT ACCURATE CREATININE CLEARANCE IN PREDICTING GLOMERULAR FILTRATION RATE . ESTIMATED GFR I S NOT APPLICABLE FOR DIALYSIS PATIEN TS. Consumer Education Specialist ID - DBLACTIC ACID, [id number] 05:41:00 Test Item Value Reference Range Interpretation Comments LACTATE BLOOD VENOUS 0.99 mmol/L 0.50-2.20 Specime n slightly (2) (BEAKER) (test hemolyzed code = 3071) Consumer Education Specialist ID - DBPOCT-GLUCOSE [id number] 00:16:00 Test Item Value Reference Range Interpretation Comments POC-GLUCOSE METER 104 mg/dL 70-110 : [facility] (BEAKER) (test code = RADHA [place]OTH [place], 1538) [address]: Consumer Education Specialist/Techni homer ID = [id number] for GISSELL HUMPHREY LACTIC ACID, [id number] 18:07:00 Test Item Value Reference Range Interpretation Comments LACTATE BLOOD VENOUS 1.23 mmol/L 0.50-2.20 Specime n slightly (2) (BEAKER) (test hemolyzed code = 2872) Consumer Education Specialist ID - NTPPOCT-GLUCOSE [id number] 17:51:00 Test Item Value Reference Range Interpretation Comments POC-GLUCOSE METER 98 mg/dL 70-110 : TESTED A T [facility] 6720 (BEAKER) (test code = RADHA [place], 1538) [address]: Consumer Education Specialist/Techni homer ID = [id number] for COLBY NELSON URINALYSIS W/ REFLEX URINE [id number] 17:19:00 Test Item Value Reference Range Interpretation [...] RBC UA (BEAKER) (test code = 519) 02571 /HPF WBC UA (BEAKER) (test code = 520) 8314 /HPF SOURCE(BEAKER) (test code = 2795) Consumer Education Specialist ID - [auto]Consumer Education Specialist ID - techRAD, CHEST, 1 VIEW, NON [id number] 12:40:00Reason for exam:->bilateral cracklesShould this be performed at the bedside?->YesFINAL REPORT RAD, CHEST, 1 VIEW, NON DEPT INDICATION: bilateral crackles COMPARISON: None. FINDINGS: Portable frontal view of the chest. IMPRESSION: Support Lines: None. Lungsand pleura: Linear subsegmental atelectasis versus scarring at the left base. Right lung is clear.. No pneumothorax.Heart and mediastinum: Unremarkable contours.Additional findings: None. Signed: JR Eddy, Heriberto DELONTEeport Verified Date/Time: 01/03/2020 12:40:06 Reading Location: [facility] Reading Room B-TYPE NATRIURETIC FACTOR (BNP)2020-01-03 12:02:00 Test Item Value Reference Range Interpretation Comments B-TYPE NATRIURETIC PEPTIDE (BEAKER) 127 pg/mL 0-100 H (test code = 700) Consumer Education Specialist ID - NTPLACTIC ACID, [id number] 11:48:00 Test Item Value Reference Range Interpretation Comments LACTATE BLOOD VENOUS 2.69 mmol/L 0.50-2.20 H Specime n slightly (2) (BEAKER) (test hemolyzed code = 2872) Consumer Education Specialist ID - NTPLACTIC ACID, [id number] 09:24:00 Test Item Value Reference Range Interpretation Comments LACTATE BLOOD VENOUS 7.71 mmol/L 0.50-2.20 HH Specime n slightly (2) (BEAKER) (test hemolyzed code = 2872) Consumer Education Specialist ID - NTPPOCT-CALCIUM [id number] 09:04:00 Test Item Value Reference Range Interpretation Comments POC-CALCIUM IONIZED 1.20 mmol/L 1.12-1.27 : TESTED AT [facility] ([facility]) (test code = [address] 15[address]) [place], [address]: Consumer Education Specialist/Techni homer ID = [id number] for YOHANNES ESQUIVEL [id number] 09:04:00 Test Item Value Reference Range Interpretation Comments POC-GLUCOSE (BEAKER) 144 mg/dL 70-110 H : TESTE D AT [facility] 6720 (test code = 1855) [place], [address]: Consumer Education Specialist/Techni homer ID = [id number] for YOHANNES ESQUIVEL POCT-BLOOD GASES, [id number] 09:03:00 Test Item Value Reference Range Interpretation Comments TEMP, CELSIUS-POC (BEAKER) (test code = 1834) FIO2-POC ([facility]) (test code = 1835) PH, ARTERIAL-POC 7.298 [...] -10.0 meq/L -2.0-3.0 L : TESTED AT [facility] 67 ARTERIAL-POC [facility], (BEAKER) (test code 40347: = 1841) Consumer Education Specialist/Techni homer ID = [id number] for YOHANNES AHUMADA [id number] 09:03:00 Test Item Value Reference Range Interpretation Comments POC-SODIUM (BEAKER) 141 meq/L 135-148 : TESTED AT [place] [address] (test code = 1542) [facility], [address]: Consumer Education Specialist/Techni homer ID = [id number] for YOHANNES ESQUIVEL [id number] 09:03:00 Test Item Value Reference Range Interpretation Comments POC-POTASSIUM 4.2 meq/L 3.6-5.5 : TESTED AT [place] [address] [facility] (test code [facility], = 1540) [address]: Consumer Education Specialist/Techni homer ID = [id number] for YOHANNES ESQUIVEL [id number] 09:03:00 Test Item Value Reference Range Interpretation Comments POC-HEMOGLOBIN 13.6 g/dL 13.0-16.8 : TESTED AT [place] [address] ([facility] (test code [facility], = 1856) [address]: Consumer Education Specialist/Techni homer ID = [id number] for YOHANNES ESQUIVEL [id number] 09:03:00 Test Item Value Reference Range Interpretation Comments POC-HEMATOCRIT 40 % 40-50 : Consumer Education Specialist/Te chnician ID = ([facility]) (test code = 331661 for ALVIN YOHANNES 185) BASIC METABOLIC [id number] 05:52:00 Test Item Value Reference Range Interpretation [...] 697) EGFR (BEAKER) (test 54 mL/min/1.73 ESTIMA SULY GFR IS code = 1092) sq m NOT ACCURATE CREATININE CLEARANCE IN PREDICTING GLOMERULAR FILTRATION RATE . ESTIMATED GFR I S NOT APPLICABLE FOR DIALYSIS PATIEN TS. Consumer Education Specialist ID - LUI [id number] 05:47:00 Test Item Value Reference Range Interpretation [...] mechanical heart valves.CBC W/PLT COUNT & AUTO [id number] 05:38:00 Test Item Value Reference Range Interpretation [...] code = 2801) URINALYSIS W/ REFLEX URINE [id number] 05:29:00 Test Item Value Reference Range Interpretation [...] 1574) Rare SOURCE(BEAKER) (test code = 2795) Consumer Education Specialist ID - [auto]Consumer Education Specialist ID - techTISSUE [id number] 09:02:00Surgical Pathology Report Case: [id number] Authorizing Provider: Nimesh Herring MD Collected: 11/16/2019 1627 Ordering Location: [facility] Endoscopy Received: 11/17/2019 0806 Services Pathologist: [...] IS NEGATIVE. Signing Pathologist Direct Phone Line: [phone] signed by Vini Singh MD on 11/21/2019 at 9:02 [id number], [id number] diagnosis: Epigastric abdominal pain A. Gastric biopsy; [...] evaluated Immunohistochemistry technical testing was performed at [facility], Pathology Laboratory where it was [...] qualified to perform high complexity clinical laboratory testing.[facility], Department of Pathology, [address] [place] [address], [facility], [address] [place], [place] [id number], [facility], [facility],[address] [place] [id number], YM Fluoroscopy in Imaging per [id number] 15:26:54Patient: CAS DENNY Date/Time06/22/2018 13:30 CDTReason for ExamsurgeryReportLocation R 16Exam: [...] (Electronic Signature): 06/22/2018 3:26 pmNEEDLE EMG, 2 [id number] 16:14:00INTRAOPERATIVE MONITORING REPORT Patient Name: Cas Denny [facility] Surgery Date: 01/15/18 [place] Pro: [id number] Monitoring began at 11:40 a.m and ended [...] Sonido Milan M.D., FACNS, FAAN, FAESG89.4, M54.16 [facility], [employer] IN OR/30 MINUTE INCREMENTS 2018-01-15 14:19:00Reason for exam:->Implant spinal cord stimulator, thoracic laminectomyFINAL REPORT Fluoroscopy 1 view intraoperative 01/15/2018 2:13 PM CLINICAL HISTORY: Instrument localization COMPARISON: None available IMPRESSION: Please correlate imaging report findings with the procedure note prepared by Dr. Huggins, as an intra-procedure imaging consultation was not requested. Reported fluoroscopy time: 29.9 seconds. Signed: Amber Alfaro MDRkobiort Verified Date/Time: 01/15/2018 14:19:13 Reading Location: [address] Consult Reading Room HIV-1 ANTIGEN WITH HIV-1/2 ANTIBODY 2018-01-11 09:49:00 Test Item Value Reference Range Interpretation Comments HIV-1 ANTIGEN WITH HIV 1\\T\\2 Nonreactive Nonreactive ANTIBODY (2) (MARÍA) (test code = 2586) [id number] 09:32:00 Test Item Value Reference Range Interpretation Comments GLUCOSE RANDOM (MARÍA) (test code 126 mg/dL 70-105 H = 652) BASIC METABOLIC [id number] 09:32:00 Test Item Value Reference Range Interpretation [...] 697) EGFR (BEAKER) (test 68 mL/min/1.73 ESTIMA SULY GFR IS code = 1092) sq m NOT ACCURATE CREATININE CLEARANCE IN PREDICTING GLOMERULAR FILTRATION RATE . ESTIMATED GFR I S NOT APPLICABLE FOR DIALYSIS PATIEN TS. PROTHROMBIN TIME/[id number] 09:29:00 Test Item Value Reference Range Interpretation [...] % 0-1 PERCENT (BEAKER) (test code = 3339)
--- NOTE | 2021-08-06 17:09 | ER ---
Nurse's Notes [facility] Name: Cas Denny Age: 75 yrs Sex: Male : 1945 Arrival Date: 08/06/2021 Time: 16:39 Bed Waiting Private MD: Diagnosis: ED Course: 08/06 16:39 Patient arrived in ED. kc5 Administered Medications: No medications were administered Outcome: 17:08 Patient left the ED. ld1 Signatures: Asiya Wells RN RN ld1 Adriane Brizuela kc5
== END 2021-08-06 17:08 | disposition left against medical advice (07) ==
LOC: ER 16:33
DX: Z02.9 Encounter for administrative examinations, unspecified (principal)

== ENCOUNTER 2022-03-18 10:31 | Emergency (ER) | payer OTHER, BC ==
--- NOTE | 2022-03-18 11:32 | ER ---
Nurse's Notes [facility] Name: Cas Denny Age: 76 yrs Sex: Male : 1945 Arrival Date: 03/18/2022 Time: 10:42 Bed Waiting Private MD: Diagnosis: Coronavirus infection, unspecified Presentation: 03/18 11:24 Chief complaint: Patient states: his dr. sent him here because he has COVID, and he ap3 also has cancer, and COPD. Patient states he tested positive for COVID approx one hour ago, and his symptoms began approx 2 days ago. Coronavirus screen: Client reports previous positive COVID test result. Ebola Screen: No symptoms or risks identified at this time. Initial Sepsis Screen: Does the patient meet any 2 criteria?. Initial Sepsis Screen: Does the patient have a suspected source of infection? No. Patient's initial sepsis screen is negative. Risk Assessment: Do you want to hurt yourself or someone else? Patient reports no desire to harm self or others. Onset of symptoms was March 16, 2022. 11:24 Method Of Arrival: Wheelchair ap3 11:24 Acuity: MIRZA 5 ap3 Triage Assessment: 11:30 General: Appears in no apparent distress. Behavior is calm, cooperative. Pain: Denies ap3 pain. Neuro: Level of Consciousness is awake, alert, obeys commands, Oriented to person, place, time. Cardiovascular: Patient's skin is warm and dry. Respiratory: Airway is patent Respiratory effort is even, unlabored, Respiratory pattern is regular, symmetrical, wears home O2. Historical: - Allergies: 11:30 adhesive tape-silicones; ap3 - PMHx: 11:30 "bad esophagus"; CAD; Back pain; Kidney stones; Hypertension; GERD; chronic back pain; ap3 Lung Cancer; Prostate Cancer; - Immunization history:: Client reports receiving the 2nd dose of the Covid vaccine. - Social history:: Smoking status: Patient/guardian denies using tobacco. Screenin:30 Abuse screen: Denies threats or abuse. Nutritional screening: No deficits noted. ap3 Tuberculosis screening: No symptoms or risk factors identified. Vital Signs: 11:24 BP 141 / 61; Pulse 79; Resp 18; Temp 99.2; Pulse Ox 94% ; Weight 83.01 kg; Height 5 ft. ap3 89 in. (378.46 cm); 11:24 Body Mass Index 5.80 (83.01 kg, 378.46 cm) ap3 ED Course: 10:42 Patient arrived in ED. rg4 11:18 Cassi Heart FNP-C [facility]. kb 11:18 Grupo Samayoa MD is Attending Physician. kb 11:29 Triage completed. ap3 11:30 Arm band placed on right wrist. ap3 11:31 Patient has correct armband on for positive identification. Adult w/ patient. Pulse ox ap3 on. NIBP on. 11:31 No provider procedures requiring assistance completed. Patient did not have IV access ap3 during this emergency room visit. Administered Medications: No medications were administered Medication: 11:31 VIS not applicable for this client. ap3 Outcome: 11:31 Discharge ordered by . kb 12:47 Patient left the ED. kb Signatures: Cassi Heart FNP-C FNP-Radha Olsen rg4 Sofiya Larsen, RN RN ap3
--- NOTE | 2022-03-18 11:32 | EDPHYS ---
Physician Documentation [facility] Name: Cas Denny Age: 76 yrs Sex: Male : 1945 Arrival Date: 03/18/2022 Time: 10:42 Bed Waiting Private MD: ED Physician Grupo Samayoa HPI: 03/18 19:52 This 76 yrs old Male presents to ER via Wheelchair with complaints of Covid. kb 19:53 The patient or guardian reports cough. Onset: The symptoms/episode began/occurred kb yesterday. Severity of symptoms: At their worst the symptoms were mild, in the emergency department the symptoms have improved. Modifying factors: The symptoms are alleviated by nothing, the symptoms are aggravated by nothing. Associated signs and symptoms: The patient has no apparent associated signs or symptoms. The patient has not experienced similar symptoms in the past. The patient has not recently seen a physician. pt reports cough, chills, malaise, fatigue and bodyaches started yesterday. 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 Historical: - Allergies: 11:30 adhesive tape-silicones; ap3 - PMHx: 11:30 "bad esophagus"; CAD; Back pain; Kidney stones; Hypertension; GERD; chronic back pain; ap3 Lung Cancer; Prostate Cancer; - Immunization history:: Client reports receiving the 2nd dose of the Covid vaccine. - Social history:: Smoking status: Patient/guardian denies using tobacco. ROS: 19:53 Abdomen/GI: Negative for abdominal pain, nausea, vomiting, diarrhea, and constipation. kb 19:53 Constitutional: Positive for body aches, chills, fatigue, malaise. 19:53 Respiratory: Positive for 19:53 All other systems are negative. Exam: 19:53 Constitutional: This is a well developed, well nourished patient who is awake, alert, kb and in no acute distress. Head/Face: Normocephalic, atraumatic. ENT: Moist Mucous membranes Cardiovascular: Regular rate and rhythm with a normal S1 and S2. No gallops, murmurs, or rubs. No pulse deficits. Respiratory: Respirations even and unlabored. No increased work of breathing. Talking in full sentences Skin: Warm, dry with normal turgor. Normal color. MS/ Extremity: Pulses equal, no cyanosis. Neurovascular intact. Full, normal range of motion. Neuro: Awake and alert, GCS 15, oriented to person, place, time, and situation. Moves all extremities. Normal gait. Psych: Awake, alert, with orientation to person, place and time. Behavior, mood, and affect are within normal limits. Vital Signs: 11:24 BP 141 / 61; Pulse 79; Resp 18; Temp 99.2; Pulse Ox 94% ; Weight 83.01 kg; Height 5 ft. ap3 89 in. (378.46 cm); 11:24 Body Mass Index 5.80 (83.01 kg, 378.46 cm) ap3 MDM: 11:31 Patient medically screened. kb 19:51 Data reviewed: vital signs, nurses notes. Data interpreted: Pulse oximetry: on room air kb is 94 %. Interpretation: normal. Counseling: I had a detailed discussion with the patient and/or guardian regarding: the historical points, exam findings, and any diagnostic results supporting the discharge/admit diagnosis, the need for outpatient follow up, a family practitioner, to return to the emergency department if symptoms worsen or persist or if there are any questions or concerns that arise at home. ED course: Pt states he feels better today than yesterday, has home o2 at home that he uses, 91-94% is normal for him on room air. Offered Bebtelovimab treatment, but pt declines at this time. States he only came in because his PCP told him to, but he feels ok. Administered Medications: No medications were administered Disposition: 03/19 07:21 Co-signature as Attending Physician, Grupo Samayoa MD. rn Disposition Summary: 03/18/22 11:31 Discharge Ordered Location: Home kb Condition: Stable kb Diagnosis - Coronavirus infection, unspecified kb Followup: kb - With: Emergency Department - When: As needed - Reason: Worsening of condition Followup: kb - With: Private Physician - When: 2 - 3 days - Reason: Recheck today's complaints, Continuance of care, Re-evaluation by your physician Discharge Instructions: - Discharge Summary Sheet kb - Viral Respiratory Infection, [id number] kb - COVID-19 kb Forms: - Medication Reconciliation Form kb - Thank You Letter kb - Antibiotic Education kb - Prescription Opioid Use kb Signatures: Cassi Heart FNP-C FISCAL SERVICES DIRECTOR-Ckb Grupo Samayoa MD MD rn Prokisch, Amanda, RN RN ap3 Corrections: (The following items were deleted from the chart) 03/18 19:53 19:52 Constitutional: Negative for fever, chills, and weight loss, kb kb
[2022-03-18 13:43] VITALS: BP 141/61; TEMP 99.2; O2SAT 94
== END 2022-03-18 12:47 | disposition home or self-care (01) ==
LOC: ER 10:31
DX: U07.1 COVID-19 (principal); I10 Essential (primary) hypertension; I25.10 Atherosclerotic heart disease of native coronary artery without angina pectoris; Z85.46 Personal history of malignant neoplasm of prostate; Z85.118 Personal history of other malignant neoplasm of bronchus and lung; Z91.048 Other nonmedicinal substance allergy status
CPT/HCPCS: 99282

== ENCOUNTER 2024-06-16 11:07 | Inpatient (IN) | payer OTHER, BC ==
[2024-06-16] MEDS ORDERED: NA CHLORIDE 0.9% 500 ML ONE (11:37)
[2024-06-16 11:44] LABS: Absolute Basophils 0.1 K/uL (0-0.5); Absolute Lymphocytes (CBC) 1.1 K/uL (0.7-4.9); Absolute Monocytes 1.2 K/uL (0.1-1.3); Absolute Neutrophil 14.9 K/uL (1.8-8.0); Basophils % 0.4 % (0-1.3); Hematocrit 38.5 % (39.6-49.0); Hemoglobin 12.5 g/dL (13.6-17.9); Lymphocytes % 6.5 % (15.3-44.8); MCH 29.9 pg (27.0-35.0); MCHC 32.5 g/dL (32.0-36.0); MCV 91.7 fL (80-100); MPV 8.1 fL (7.6-11.3); Monocytes % 6.7 % (3.3-12.3); Neutrophils % 86.4 % (41.7-73.7); Platelets 389 thou/uL (152-406); RBC Red Blood Cell Count 4.19 M/uL (4.33-5.43)
[2024-06-16 11:48] LABS: PT Prothrombin Time 14.3 SECONDS (9.4-12.5); PTT, Activated Partial Thromb 33.5 SECONDS (24.3-36.9); Protime INR 1.29
[2024-06-16 12:00] LABS: Albumin 3.6 g/dL (3.4-5.0); Albumin/Globulin Ratio 0.7 (1.1-1.8); Anion Gap 11.5 mEq/L (5.0-15.0); Bilirubin Total 0.9 mg/dL (0.2-1.0); Globulin 5.2 g/dL (2.3-3.5); Potassium 3.5 mEq/L (3.5-5.1); Protein, Total 8.8 g/dL (6.4-8.2)
[2024-06-16 12:07] LABS: SARS-CoV-2 Antigen CONTROL BLUE LINE VIS/BG OK; SARS-CoV-2 Antigen Rapid Res Negative (Negative)
--- NOTE | 2024-06-16 12:19 | RAD REPORT ---
EXAMINATION: ONE VIEW CHEST XR CLINICAL INDICATION: Male, 78 years old.Cough;Fever TECHNIQUE: 1 View, AP supine, X-ray of the chest was performed. [id number]. COMPARISON: 02/02/2020 FINDINGS: Lungs and pleura: Clear lungs. No effusion. Linear scarring in the left lung base. Heart and mediastinum: Normal heart size. Unremarkable mediastinal contours. Osseous structures: No acute abnormality. Tubes/lines: Spinal stimulator. Other: None. IMPRESSION: No acute intrathoracic abnormality.
[2024-06-16 12:21] LABS: Differential Total Cells Count 100; Lymphocytes 6 % (15-42); Monocytes 4 % (0-10); Platelet Estimate ADEQ; Platelets Clumped NOTED; Segmented Neutrophils 90 % (40-80)
[2024-06-16 12:22] LABS: Blood Morphology Comment NOT SEEN (NOT SEEN)
[2024-06-16] MEDS ORDERED: CEFTRIAXONE 1000 MG/VIAL ONE (13:57)
[2024-06-16] MEDS ORDERED: NA CHLORIDE 0.9% 50 ML ONE (13:57)
--- NOTE | 2024-06-16 14:00 | RAD REPORT ---
EXAMINATION: CT ABDOMEN AND PELVIS WITH CONTRAST CLINICAL INDICATION: Male, 78 years old.ABD PAIN TECHNIQUE: CT abdomen and pelvis was performed, after the administration of IV contrast, as [facility]. Axial, sagittal and coronal reconstructions were obtained. One or more of the following dose reduction techniques were used: Automated exposure control, adjustment of the mA and/o r kV according to patient size, and/or iterative reconstruction. Unless otherwise specified, incidental findings do not require dedicated imaging follow-up. [id number]. COMPARISON: 09/26/2021 FINDINGS: LOWER CHEST: Dependent atelectasis and/or mild scarring.. Mild coronary artery calcifications. LIVER: Several low-density liver lesions are identified. These are unchanged and likely benign. GALLBLADDER/BILE DUCT: Cholecystectomy. Mild extrahepatic biliary duct dilatation is likely related t o the postcholecystectomy state.? PANCREAS: Pancreatic atrophy. SPLEEN: Normal size. No focal lesion. ADRENALS: Normal; no mass. KIDNEYS AND URETERS: Normal size and contour. No hydronephrosis. Punctate stone in the right kidney. Bilateral renal lesions which are either benign in appearance or too small to accurately characterize but statistically benign. GASTROINTESTINAL TRACT: Stomach is non-dilated. Small bowel has normal course and caliber. No colonic wall thickening or pericolonic inflammatory changes. Gastrostomy tube. PERITONEUM: No ascites. LYMPH NODES: No lymphadenopathy. ABDOMINAL AORTA AND OTHER VESSELS: Normal caliber aorta and IVC. URINARY BLADDER: Normal contour. REPRODUCTIVE ORGANS: Prostatectomy MUSCULOSKELETAL: Screw traverses the left SI joint. Fusion hardware in the lumbar spine. Spinal stimu lator. ADDITIONAL FINDINGS: None. IMPRESSION: No acute or significant abnormalities seen in the abdomen or pelvis. Incidental findings as noted abo ve.
--- NOTE | 2024-06-16 15:51 | ER ---
Nurse's Notes [facility] Name: Cas Denny Age: 78 yrs Sex: Male : 1945 Arrival Date: 06/16/2024 Time: 11:07 Bed 8 Private MD: Diagnosis: Fever, unspecified;Hallucinations, unspecified;Delirium due to known physiological condition Presentation: 06/16 11:13 Chief complaint: EMS states: Pt c/o pain all over, generalized weakness, fever 102 ph yesterday, hallucinations yesterday, uses home oxygen at 2L. Coronavirus screen: Vaccine status: Patient reports receiving the 2nd dose of the covid vaccine. Ebola Screen: No symptoms or risks identified at this time. Initial Sepsis Screen: Does the patient meet any 2 criteria? No. Patient's initial sepsis screen is negative. Does the patient have a suspected source of infection? No. Patient's initial sepsis screen is negative. Risk Assessment: Do you want to hurt yourself or someone else? Patient reports no desire to harm self or others. Onset of symptoms was June 16, 2024. 11:13 Method Of Arrival: EMS: [facility] 11:13 Acuity: MIRZA 3 ph Triage Assessment: 11:16 General: Appears in no apparent distress. Behavior is calm, cooperative, Reports chills ph for fever for. Pain: Complains of pain in "all over". Neuro: Level of Consciousness is awake, alert, obeys commands, Oriented to person, place, time, situation. Cardiovascular: Capillary refill < 3 seconds in bilateral fingers Patient's skin is warm and dry. Respiratory: Airway is patent Respiratory effort is even, unlabored, Respiratory pattern is regular, symmetrical. GI: Reports nausea. : Denies burning with urination, urinary frequency. Derm: Skin is pink, warm \\T\\ dry. Musculoskeletal: Circulation, motion, and sensation intact. Range of motion: intact in all extremities. Historical: - Allergies: 11:15 adhesive tape-silicones; ph - PMHx: 11:15 Back pain; CAD; chronic back pain; GERD; Kidney stones; Hypertension; Lung Cancer; ph Prostate Cancer; - Immunization history:: Adult Immunizations unknown. - Infectious Disease History:: Denies. - Social history:: Smoking status: unknown. - Family history:: not pertinent. - Hospitalizations: : No recent hospitalization is reported. Screenin:05 [facility] ED Fall Risk Assessment (Adult) History of falling in the last 3 months, ph including since admission No falls in past 3 months (0 pts) Confusion or Disorientation Yes (5 pts) Intoxicated or Sedated No (0 pts) Impaired Gait Yes (1 pt) Mobility Assist Device Used Yes (1 pt) Altered Elimination No (0 pt) Score/Fall Risk Level 3 or more points = High Risk Oriented to surroundings, Maintained a safe environment, Hourly rounding (assess needs \\T\\ fall precautionary measures) done, Used ambulatory aids as needed (educated on \\T\\ assisted with). Abuse screen: Denies threats or abuse. Denies injuries from another. Nutritional screening: No deficits noted. Tuberculosis screening: No symptoms or risk factors identified. Assessment: 12:00 General: SEE TRIAGE ASSESSMENT. ph 20:08 General: Appears comfortable, Behavior is calm, cooperative. Neuro:. Neuro: Level of mt4 Consciousness is awake, alert, obeys commands. Respiratory: Airway is patent Respiratory effort is even, unlabored, Respiratory pattern is regular. Vital Signs: 11:13 Pulse 104; Resp 14; Temp 97.8; Pulse Ox 99% on R/A; Weight 77.11 kg; Height 5 ft. 8 in. ph ; 11:13 BP 144 / 69; ph 12:00 BP 126 / 68; Pulse 101; Resp 18; Pulse Ox 97% on 2 lpm NC; ph 13:03 BP 145 / 63; Pulse 91; Resp 18; Pulse Ox 98% on 2 lpm NC; ph 14:53 BP 154 / 57; Pulse 87; Pulse Ox 94% on R/A; MAP 83 mmHg; ph 15:02 BP 154 / 57; Pulse 84; Resp 18; Pulse Ox 95% on 2 lpm NC; ph 16:00 BP 146 / 62; Pulse 83; Resp 18; Pulse Ox 98% on 2 lpm NC; ph 17:00 BP 124 / 58; Pulse 77; Resp 18; Pulse Ox 97% on 2 lpm NC; ph 18:22 BP 123 / 58; Pulse 85; Resp 18; Pulse Ox 98% on R/A; ph 19:13 BP 137 / 57; Pulse 74; Resp 15; Temp 97.9(TE); Pulse Ox 97% on 2 lpm NC; mt4 11:13 Body Mass Index 25.85 (77.11 kg, 172.72 cm) ph ED Course: 11:07 Patient arrived in ED. rn 11:08 Grupo Samayoa MD is Attending Physician. rn 11:12 Anu Mcgregor RN is Primary Nurse. ph 11:15 Triage completed. ph 11:17 Arm band placed on Patient placed in an exam room, on a stretcher, on oxygen, on ph lunchroom monitor, on pulse oximetry. 11:30 Initial lab(s) drawn, by me, sent to lab. COVID swab sent to lab. Flu and/or RSV swab ph sent to lab. Inserted saline lock: 22 gauge in right antecubital area, using aseptic technique. Blood collected. Flushed with 10 mL NS. 11:31 EKG done, by ED staff, reviewed by Grupo Samayoa MD. tm6 12:16 Chest Single View XRAY In Process Unspecified. EDMS 13:05 Patient has correct armband on for positive identification. Placed in gown. Bed in low ph position. Call light in reach. Side rails up X2. Client placed on continuous cardiac and pulse oximetry monitoring. NIBP monitoring applied. athletic monitor on. Door closed. Noise minimized. Warm blanket given. Pillow given. 13:49 Abdomen In Process Unspecified. EDMS 15:50 Adebayo Prasad is Hospitalizing Provider. rn 18:24 No provider procedures requiring assistance completed. Patient admitted, IV remains in ph place. 20:08 Provided Education on: admit education . mt4 20:08 Patient admitted, IV remains in place. Oxygen administration via nasal cannula \\T\\ 2L/min.mt4 Administered Medications: 11:43 Drug: NS 0.9% IV 500 ml IV at bolus once Route: IV; Rate: bolus; Site: right ph antecubital; 13:06 Follow up: Response: No adverse reaction; IV Status: Completed infusion; IV Intake: ph 500ml 14:38 Drug: Rocephin IV 1 grams IV at calculated rate once; Given slow IV push per pharmacy tm6 instructions Route: IV; Rate: calculated rate; Site: right antecubital; 15:10 Follow up: Response: No adverse reaction; IV Status: Completed infusion; IV Intake: 50mlph 16:33 Drug: Zithromax IVPB 500 mg IVPB once over 1 hrs; mix in 250 mL NS Route: IVPB; Infused ph Over: 1 hrs; Site: right antecubital; 17:35 Follow up: Response: No adverse reaction; IV Status: Completed infusion; IV Intake: ph 250ml Medication: 13:05 VIS not applicable for this client. ph Intake: 13:06 IV: 500ml; Total: 500ml. ph 15:10 IV: 50ml; Total: 550ml. ph 17:35 IV: 250ml; Total: 800ml. ph Outcome: 15:51 Decision to Hospitalize by Provider. rn 20:08 Admitted to Med/surg accompanied by tech, via stretcher, room 401, with oxygen, mt4 20:08 Condition: stable 20:08 Instructed on the need for admit, 20:11 Patient left the ED. mt4 Signatures: Dispatcher [employer] EDMS Grupo Samayoa MD MD rn Hall, Patricia RN RN David Chi RN RN 6 Jen Bird RN RN mt4 Corrections: (The following items were deleted from the chart) 13:05 13:03 BP 145 / 63; Pulse 91bpm; Resp 08bpm; Pulse Ox 98% 2 lpm Nasal Cannula; ph ph 19:28 19:13 BP 137 / 57; Pulse 74bpm; Resp 15bpm; Pulse Ox 97% RA; Temp 97.9F Temporal; mt4 mt4
--- NOTE | 2024-06-16 15:51 | EDPHYS ---
Physician Documentation [facility] Name: Cas Denny Age: 78 yrs Sex: Male : 1945 Arrival Date: 06/16/2024 Time: 11:07 Bed 8 Private MD: ED Physician Grupo Samayoa HPI: 06/16 11:28 This 78 yrs old Male presents to ER via EMS with complaints of hallucinations, weakness.rn 11:28 Patient and family member both report altered mental status, hallucinations that began rn Thursday. Today was able to make it to the toilet but too weak to stand up and get off. 911 was called. Patient reports fever and generalized weakness with chills, myalgias, joint pain. Reports cough but denies any shortness of breath. Reports nausea but no focal abdominal pain. No chest pain.. His urologist put him on Cipro on Thursday, urinalysis was negative per patient. Onset: The symptoms/episode began/occurred 6 day(s) ago. Severity of symptoms: At their worst the symptoms were moderate in the emergency department the symptoms are unchanged. The patient has experienced similar episodes in the past. The patient has been recently seen by a physician:. Historical: - Allergies: 11:15 adhesive tape-silicones; ph - PMHx: 11:15 Back pain; CAD; chronic back pain; GERD; Kidney stones; Hypertension; Lung Cancer; ph Prostate Cancer; - Immunization history:: Adult Immunizations unknown. - Infectious Disease History:: Denies. - Social history:: Smoking status: unknown. - Family history:: not pertinent. - Hospitalizations: : No recent hospitalization is reported. ROS: 11:28 Constitutional: Negative for fever, chills, and weight loss, Neck: Negative for injury, rn pain, and swelling, Cardiovascular: Negative for chest pain, palpitations, and edema, Respiratory: Positive for cough, negative for shortness of breath Abdomen/GI: Negative for abdominal pain, positive for nausea Back: Positive for chronic back pain : No urinary symptoms reported Neuro: Positive for headache and generalized weakness Exam: 11:28 Constitutional: This is a well developed, well nourished patient who is awake, alert, rn and in no acute distress. Head/Face: Normocephalic, atraumatic. ENT: Dry mucous membranes Neck: No meningismus Cardiovascular: Tachycardic, regular Respiratory: Mild tachypnea Abdomen/GI: Soft, nontender Neuro: Awake and alert, GCS 15, oriented to person, place, time, and situation. Cranial nerves II-XII grossly intact. Motor strength 4/5 in all extremities. Sensory grossly intact. 11:39 ECG was reviewed by the Attending Physician. rn Vital Signs: 11:13 Pulse 104; Resp 14; Temp 97.8; Pulse Ox 99% on R/A; Weight 77.11 kg; Height 5 ft. 8 in. ph ; 11:13 BP 144 / 69; ph 12:00 BP 126 / 68; Pulse 101; Resp 18; Pulse Ox 97% on 2 lpm NC; ph 13:03 BP 145 / 63; Pulse 91; Resp 18; Pulse Ox 98% on 2 lpm NC; ph 14:53 BP 154 / 57; Pulse 87; Pulse Ox 94% on R/A; MAP 83 mmHg; ph 15:02 BP 154 / 57; Pulse 84; Resp 18; Pulse Ox 95% on 2 lpm NC; ph 16:00 BP 146 / 62; Pulse 83; Resp 18; Pulse Ox 98% on 2 lpm NC; ph 17:00 BP 124 / 58; Pulse 77; Resp 18; Pulse Ox 97% on 2 lpm NC; ph 18:22 BP 123 / 58; Pulse 85; Resp 18; Pulse Ox 98% on R/A; ph 19:13 BP 137 / 57; Pulse 74; Resp 15; Temp 97.9(TE); Pulse Ox 97% on 2 lpm NC; mt4 11:13 Body Mass Index 25.85 (77.11 kg, 172.72 cm) ph MDM: 11:08 Patient medically screened. rn 15:49 Differential Diagnosis altered mental status, UTI, delirium, dehydration, viral rn illness. Data reviewed: vital signs, nurses notes, lab test result(s), radiologic studies, CT scan, plain films, and as a result, I will admit patient. Care significantly affected by the following chronic conditions: Hypertension. Counseling: I had a detailed discussion with the patient and/or guardian regarding the historical points, exam findings, and any diagnostic results supporting the discharge/admit diagnosis, lab results, radiology results, the need for further work-up and treatment in the hospital. Response to treatment: the patient's symptoms have mildly improved after treatment, and as a result, I will admit patient. 06/16 11:19 Order name: Blood Culture Adult (2) rn 06/16 11:19 Order name: CBC with Diff; Complete Time: 12:49 rn 06/16 11:19 Order name: CMP; Complete Time: 12:05 rn 06/16 11:19 Order name: Lactate w/ 2H reflex if indic.; Complete Time: 12:05 rn 06/16 11:19 Order name: Protime (+inr); Complete Time: 12:05 rn 06/16 11:19 Order name: Ptt, Activated; Complete Time: 12:05 rn 06/16 11:19 Order name: Urinalysis w/ reflexes; Complete Time: 16:13 rn 06/16 11:19 Order name: Lipase; Complete Time: 12:05 rn 06/16 11:19 Order name: SARS-COV-2 Antigen Rapid; Complete Time: 12:49 rn 06/16 11:19 Order name: Flu; Complete Time: 12:49 rn 06/16 11:47 Order name: Manual Differential; Complete Time: 12:49 EDMS 06/16 16:44 Order name: Lactate w/ 2H reflex if indic. EDMS 06/16 16:44 Order name: Thyroid Stimulating Hormone EDMS 06/16 16:44 Order name: CBC with Automated Diff EDMS 06/16 16:44 Order name: CBC with Automated Diff EDMS 06/16 16:44 Order name: CBC with Automated Diff EDMS 06/16 16:44 Order name: CBC with Automated Diff EDMS 06/16 16:44 Order name: CBC with Automated Diff EDMS 06/16 16:44 Order name: Comprehensive Metabolic Panel EDMS 06/16 16:44 Order name: Comprehensive Metabolic Panel EDMS 06/16 16:44 Order name: Comprehensive Metabolic Panel EDMS 06/16 16:44 Order name: Comprehensive Metabolic Panel EDMS 06/16 16:44 Order name: Comprehensive Metabolic Panel EDMS 06/16 16:44 Order name: Lipid Profile EDMS 06/16 16:44 Order name: Lipid Profile EDMS 06/16 16:44 Order name: Magnesium EDMS 06/16 16:44 Order name: Magnesium EDMS 06/16 16:44 Order name: Magnesium EDMS 06/16 16:44 Order name: Magnesium EDMS 06/16 16:44 Order name: Magnesium EDMS 06/16 16:44 Order name: Phosphorus EDMS 06/16 16:44 Order name: Phosphorus EDMS 06/16 16:44 Order name: Phosphorus EDMS 06/16 16:44 Order name: Phosphorus EDMS 06/16 16:44 Order name: Phosphorus EDMS 06/16 11:19 Order name: Chest Single View XRAY; Complete Time: 12:49 rn 06/16 13:39 Order name: Abdomen ; Complete Time: 14:06 EDMS 06/16 11:19 Order name: EKG; Complete Time: 11:19 rn 06/16 11:19 Order name: Accucheck; Complete Time: 11:44 rn 06/16 11:19 Order name: Cardiac monitoring; Complete Time: 11:30 rn 06/16 11:19 Order name: EKG - Nurse/Tech; Complete Time: 11:31 rn 06/16 11:19 Order name: IV Saline Lock - Large Bore; Complete Time: 11:44 rn 06/16 11:19 Order name: Labs collected and sent; Complete Time: 11:44 rn 06/16 11:19 Order name: O2 Per Protocol; Complete Time: 11:44 rn 06/16 11:19 Order name: O2 Sat Monitoring; Complete Time: 11:44 rn 06/16 11:19 Order name: Vital Signs; Complete Time: 11:44 rn EC:39 Rate is 101 beats/min. Rhythm is regular. QRS [place] is Normal. AR interval is normal. rn QRS interval is normal. QT interval is normal. No Q waves. T waves are Normal. No ST changes noted. Clinical impression: Sinus tachycardia. Interpreted by me. Reviewed by me. Administered Medications: 11:43 Drug: NS 0.9% IV 500 ml IV at bolus once Route: IV; Rate: bolus; Site: right ph antecubital; 13:06 Follow up: Response: No adverse reaction; IV Status: Completed infusion; IV Intake: ph 500ml 14:38 Drug: Rocephin IV 1 grams IV at calculated rate once; Given slow IV push per pharmacy [id number] instructions Route: IV; Rate: calculated rate; Site: right antecubital; 15:10 Follow up: Response: No adverse reaction; IV Status: Completed infusion; IV Intake: 50mlph 16:33 Drug: Zithromax IVPB 500 mg IVPB once over 1 hrs; mix in 250 mL NS Route: IVPB; Infused ph Over: 1 hrs; Site: right antecubital; 17:35 Follow up: Response: No adverse reaction; IV Status: Completed infusion; IV Intake: ph 250ml Disposition Summary: 06/16/24 15:51 Hospitalization Ordered Notes: Hospitalization Status: Inpatient Admission rn Provider: Adebayo Prasad rn Location: Telemetry/MedSurg (Inpatient) rn Condition: Stable rn Problem: new rn Symptoms: have improved rn Bed/Room Type: Standard rn Room Assignment: 401(06/16/24 18:28) bc6 Diagnosis - Fever, unspecified rn - Hallucinations, unspecified rn - Delirium due to known physiological condition rn Forms: - Medication Reconciliation Form rn - SBAR form rn - Leadership Thank You Letter rn Signatures: Dispatcher [employer] EDMS Grupo Samayoa MD MD rn Hall, Patricia, RN RN ph Carowatson, Breana 6 David Chi RN RN [email or web address] Corrections: (The following items were deleted from the chart) 11:20 11:19 BLOOD CULTURE*+BA.LAB.BRZ ordered. EDMS EDMS 11:20 11:19 CBC+H.LAB.BRZ ordered. EDMS EDMS 11:20 11:19 COMPREHENSIVE METABOLIC PANEL+C.LAB.BRZ ordered. EDMS EDMS 11:20 11:19 LACTATE+C.LAB.BRZ ordered. EDMS EDMS 11:20 11:19 PROTIME (+INR)+COAG.LAB.BRZ ordered. EDMS EDMS 11:20 11:19 PTT, ACTIVATED+COAG.LAB.BRZ ordered. EDMS EDMS 11:20 11:19 Urinalysis+U.LAB.BRZ ordered. EDMS EDMS 11:20 11:19 LIPASE+C.LAB.BRZ ordered. EDMS EDMS 11:20 11:19 SARS-COV-2 Antigen Rapid+I.LAB.BRZ ordered. EDMS EDMS 11:20 11:19 Influenza Screen (A \T\ B)+BA.LAB.BRZ ordered. EDMS EDMS 18:28 15:51 rn bc6
[2024-06-16 16:11] LABS: Sqamous Epithelial <5 /HPF (None Seen); Urine Bacteria None Seen /HPF (<20); Urine Bilirubin NEGATIVE (Negative); Urine Blood Negative (Negative); Urine Clarity Clear (Clear); Urine Color Light-Yellow (Yellow); Urine Culture Reflex Order NOT NEEDED; Urine Glucose NEGATIVE (Negative); Urine Ketones 3+ (Negative); Urine Microscopic Reflex YN ORDER UMIC; Urine Nitrite NEGATIVE (Negative); Urine Protein TRACE (Negative); Urine Urobilinogen Normal (Normal); Urine WBC <5 /HPF (<5)
[2024-06-16 16:12] LABS: Specific Gravity > 1.030 (1.005-1.030)
[2024-06-16] MEDS ORDERED: NA CHLORIDE 0.9% 250 ML ONE (16:17)
[2024-06-16] MEDS ORDERED: AZITHROMYCIN 500 MG INJ IVPB ONE (16:17)
--- NOTE | 2024-06-16 16:29 | P.HP ---
Certification for Inpatient Patient admitted to: Inpatient With expected LOS: >2 Midnights Practitioner: I am a practitioner with admitting privileges, knowledge of patient current condition, hospital course, and medical plan of care. Services: Services provided to patient in accordance with Admission requirements found in Title 42 Section 412.3 of the Code of Federal Regulations Patient History Date of Service: 06/16/24 Reason for admission: Severe sepsis, COPD exacerbation, recent abx History of Present Illness: Mr. Denny is an 78-year-old gentleman with a past medical history of chronic back pain; CAD; GERD; Kidney stones; Hypertension; Lung Cancer; and prostate cancer. Over the past 6 days he has had fever, chills, and rigors. His urologist placed him on Vantin on Thursday, 1 week ago for presumed UTI, the culture came back yesterday and was negative. Mr. Denny began having hallucinations and became increasingly weak. He was able to make it to the bat hroom but was unable to stand up from a seated position so EMS was called and the patient was evaluated in the emergency department. Labs: WBC 17.3 with 86.4% neutrophils, H/H 12.5/38.5, INR 1.29, chemistries unremarkable with a creatinine of 1.16, urinalysis shows 3+ ketones with a specific gravity of greater than 1.030, SARS negative Imaging: Chest x-ray read as no acute intrathoracic abnormality CT abdomen pelvis read as no acute or significant abnormality seen in the abdomen or pelvis. On evaluation in the emergency department, Mr. Denny is alert and oriented, but continues with fever and chills. We will admit him for IV antibiotics and further evaluation and treatment. Allergies adhesive tape Adverse Reaction (Mild, Verified 01/12/20 10:41) blisters Home medications list reviewed: Yes Home Medications: Amlodipine Besylate [Norvasc] 10 mg PO DAILY 12/25/11 Atorvastatin Calcium [Lipitor*] 20 mg PO BEDTIME 06/24/18 Gabapentin [Neurontin] 300 mg PO DAILY 06/24/18 fentaNYL [Duragesic] 1 each TD Q72H 01/10/19 allopurinoL [Zyloprim*] 300 mg PO DAILY 04/05/19 Megestrol [Megace*] 20 mg PO EVERY 3RD DAY 01/07/20 Metoprolol Succinate 25 mg PO DAILY 01/07/20 Sucralfate [Carafate*] 2 gm PO BID 01/07/20 Mometasone/Formoterol [Dulera 200 Mcg/5 Mcg Inhaler] 2 puff IH BID #1 inhaler 01/09/20 - Past Medical/Surgical History Has patient received pneumonia vaccine in the past: Yes Diabetic: No -: chronic back and neck pain -: hypertension -: prostate cancer -: bad esophagus -: GERD -: CAD -: kidney stones -: COPD -: neck surgery -: back surgery x2 -: appendectomy -: hernia repair -: cholecystectomy -: prostatectomy -: bladder dilation -: DVR stimulator Psychosocial/ Personal History: Lives at home with his and son - Family History Mother -: Heart disease Father -: Cancer - Social History Smoking Status: Unknown if ever smoked Alcohol use: No CD- Drugs: Yes Caffeine use: No Place of Residence: Home Review of Systems 10-point ROS is otherwise unremarkable General: Fever, Chills, Weakness, Malaise Eyes: Unremarkable ENT: Unremarkable Respiratory: Cough, Shortness of Breath Cardiovascular: Unremarkable Gastrointestinal: Unremarkable Genitourinary: Unremarkable Musculoskeletal: Unremarkable Integumentary: Unremarkable Neurological: Other (hallucinations) Lymphatics: Unremarkable Physical Examination - Vital Signs Blood Pressure: 146/62 Pulse: 92 Respirations: 15 Pulse Ox (%): 100 - Physical Exam General: Alert, Oriented x3, Cooperative, Disheveled, Mild distress (chills with rigors), Other (pallor) HEENT: Atraumatic, Normocephalic Neck: Supple Respiratory: Crackles/rales (bilateral bases) Cardiovascular: No edema, Regular rate/rhythm, Normal S1 S2 Capillary refill: <2 Seconds Gastrointestinal: Soft and benign, Other (has g-tube for "venting gas", no products introduced through it per family) Musculoskeletal: No clubbing Integumentary: Skin breakdown, Other (groin and right hip) Neurological: Normal speech, Normal tone Lymphatics: No axilla or inguinal lymphadenopathy External genitalia: Deferred Rectal: Deferred - Studies Laboratory Data (last 24 hrs) 06/16/24 06/16/24 06/16/24 11:30 11:30 11:30 WBC 17.30 H Hgb 12.5 L Hct 38.5 L Plt Count 389 PT 14.3 H INR 1.29 APTT 33.5 Sodium 136 Potassium 3.5 BUN 21 H Creatinine 1.16 Glucose 133 H Total Bilirubin 0.9 AST 23 ALT 34 Alkaline Phosphatase 90 Lipase 19 Microbiology Data (last 24 hrs): 06/16/24 11:45 Nasopharnyx Influenza Type A Antigen Screen - Final 06/16/24 11:45 Nasopharnyx Influenza Type B Antigen Screen - Final Assessment and Plan - Plan Severe sepsis 2nd to COPD exacerbation with leukocytosis AMS, fever, lactic acidosis, and volume depletion with failed outpatient abx therapy Patient's respiratory status has stabilized/worsened. Patient still requiring O2. Patient is still coughing. Patient admits to fever, chills, hallucinations, & tremors. Plan: Continue IV antibiotics Sputum and blood cultures, follow cultures, repeat lactate Repeat chest x-ray Neb treatments every 4 to 6 hours as needed O2 per protocol Continue with gentle hydration Monitor and trend labs including CBC, CMP, and lactate as needed Chronic pain Continue pain management Fentanyl 125mcg per patch q 3d, changed 06/15/24 Oxycodone 15mg po TID GERD Protonix, carafate, HOB up 30 degrees has Gtube for "venting" HTN,HLD,Gout medications as per usual VTE/GI prophylaxis - Advance Directives Does patient have a Living Will: No Does patient have a Durable POA for Healthcare: No
[2024-06-16] MEDS ORDERED: SODIUM CHLORIDE 0.9% 10ML INJ IV PRN (16:31)
[2024-06-16] MEDS ORDERED: ACETAMINOPHEN 500 MG TAB PO PRN (16:31)
[2024-06-16] MEDS ORDERED: PROMETHAZINE 25 MG/SUPP PR PRN (16:31)
[2024-06-16] MEDS: SUCRALFATE 1 GM TABLET PO SCH (17:00)
[2024-06-16] MEDS: NA CHLORIDE 0.9% 1,000 ML IV SCH (17:00)
[2024-06-16 18:43] VITALS: BMI 25.8
[2024-06-16] MEDS: IPRATROPIUM BROM 0.5MG/2.5ML NEB SCH (19:59)
[2024-06-16] MEDS: ALBUTEROL 2.5 MG/3 ML NEB SOL NEB SCH (19:59)
[2024-06-16] MEDS: PANTOPRAZOLE 40 MG INJ IVP SCH (21:02)
[2024-06-16] MEDS: ATORVASTATIN 20 MG TAB PO SCH (21:02)
[2024-06-16] MEDS: GABAPENTIN 300 MG CAP PO SCH (21:02)
[2024-06-16] MEDS: OXYCODONE HCL 5 MG TAB PO PRN (21:04)
[2024-06-17] MEDS: METOPROLOL XL 25 MG TAB PO SCH (06:14)
[2024-06-17 08:39] LABS: Absolute Basophils 0.1 K/uL (0-0.5); Absolute Eosinophils 0.1 K/uL (0-0.5); Absolute Lymphocytes (CBC) 3.1 K/uL (0.7-4.9); Absolute Monocytes 0.8 K/uL (0.1-1.3); Absolute Neutrophil 5.4 K/uL (1.8-8.0); Basophils % 0.8 % (0-1.3); Hematocrit 30.4 % (39.6-49.0); Hemoglobin 9.8 g/dL (13.6-17.9); Lymphocytes % 32.7 % (15.3-44.8); MCH 29.3 pg (27.0-35.0); MCHC 32.1 g/dL (32.0-36.0); MCV 91.5 fL (80-100); MPV 8.2 fL (7.6-11.3); Monocytes % 8.8 % (3.3-12.3); Neutrophils % 56.7 % (41.7-73.7); Platelets 301 thou/uL (152-406); RBC Red Blood Cell Count 3.33 M/uL (4.33-5.43); Red Cell Distribution Width 15.3 % (12.1-15.2)
[2024-06-17 08:55] LABS: Albumin 2.6 g/dL (3.4-5.0); Albumin/Globulin Ratio 0.7 (1.1-1.8); Anion Gap 8.3 mEq/L (5.0-15.0); Bilirubin Total 0.5 mg/dL (0.2-1.0); Globulin 3.8 g/dL (2.3-3.5); Magnesium 2.1 mg/dL (1.6-2.4); Phosphorus 2.8 mg/dL (2.5-4.9); Potassium 3.3 mEq/L (3.5-5.1); Protein, Total 6.4 g/dL (6.4-8.2)
[2024-06-17] MEDS: allopurinoL 300 MG TAB PO SCH ×2 (09:00→20:36)
[2024-06-17] MEDS: AMLODIPINE 10 MG TAB PO SCH ×2 (09:00→12:01)
[2024-06-17] MEDS: AZITHROMYCIN IV 500 MG in NA CHLORIDE 0.9% 250 ML IVPB SCH (09:00)
[2024-06-17] MEDS: CEFTRIAXONE 1,000 MG in NA CHLORIDE 0.9% 50 ML IVPB SCH (09:00)
[2024-06-17] MEDS: ENOXAPARIN 40 MG/0.4 ML SQ SCH (09:20)
[2024-06-17] MEDS: PARoxetine HCL 10 MG TAB PO SCH (09:24)
[2024-06-17] MEDS: AMOX/K CLAV 875 MG TAB PO SCH (09:48)
[2024-06-17] MEDS: MEGESTROL 40 MG TAB PO SCH (09:48)
[2024-06-17] MEDS: POTASSIUM 25 MEQ EFFERV TAB PO ONE (10:30)
[2024-06-17] MEDS ORDERED: POTASSIUM CL SA 10 MEQ TAB PO ONE (11:00)
[2024-06-17] MEDS: POTASSIUM CL SA 10 MEQ TAB PO ONE (13:59)
--- NOTE | 2024-06-17 14:09 | EKG ---
Test Date: 2024-06-16 Test Time: 11:28:32 Briefcase Sewer: NATALIYA MEASUREMENT RESULTS: Intervals: Rate: 101 RI: 144 QRSD: 66 QT: 296 QTc: 383 [place]: P: 42 RI: 144 QRS: -14 T: 5 INTERPRETIVE STATEMENTS: Sinus tachycardia with fusion complexes Low voltage QRS Borderline ECG Compared to ECG 01/07/2020 02:52:17 Fusion complex(es) now present Low QRS voltage now present Electronically Signed On 06-17-24 14:07:20 CDT by Heber Wooten
--- NOTE | 2024-06-17 16:43 | P.PN ---
Subjective Date of Service: 06/17/24 Chief Complaint: Severe sepsis, COPD exacerbation, recent abx Subjective: Improving (probable discharge tomorrow, abx changed to po) Review of Systems 10-point ROS is otherwise unremarkable General: As per HPI Eyes: Unremarkable ENT: Unremarkable Respiratory: Unremarkable Cardiovascular: Unremarkable Gastrointestinal: Unremarkable Genitourinary: Unremarkable Musculoskeletal: Back Pain, As per HPI Integumentary: Unremarkable Neurological: Unremarkable Lymphatics: Unremarkable Physical Examination - Vital Signs Temperature: 97.5 F Blood Pressure: 126/58 Pulse: 85 Respirations: 18 Pulse Ox (%): 95 - Physical Exam General: Alert, In no apparent distress, Oriented x3 HEENT: Atraumatic, Normocephalic Neck: Supple Respiratory: Normal air movement Cardiovascular: Regular rate/rhythm Capillary refill: <2 Seconds Gastrointestinal: Soft and benign Musculoskeletal: No clubbing, No swelling Integumentary: No rashes Neurological: Normal tone, Normal affect Lymphatics: No axilla or inguinal lymphadenopathy External genitalia: Deferred Rectal: Deferred - Studies Microbiology Data (last 24 hrs): 06/16/24 11:45 Nasopharnyx Influenza Type A Antigen Screen - Final 06/16/24 11:45 Nasopharnyx Influenza Type B Antigen Screen - Final Assessment And Plan - Plan Severe sepsis 2nd to COPD exacerbation with leukocytosis AMS, fever, lactic acidosis, and volume depletion with failed outpatient abx therapy Patient's respiratory status has stabilized/worsened. Patient still requiring O2. Patient is still coughing. Patient admits to fever, chills, hallucinations, & tremors. Plan: Continue IV antibiotics Sputum and blood cultures, follow cultures, repeat lactate Repeat chest x-ray Neb treatments every 4 to 6 hours as needed O2 per protocol Continue with gentle hydration Monitor and trend labs including CBC, CMP, and lactate as needed Chronic pain Continue pain management Fentanyl 125mcg per patch q 3d, changed 06/15/24 Oxycodone 15mg po TID GERD Protonix, carafate, HOB up 30 degrees has Gtube for "venting" HTN,HLD,Gout medications as per usual 06/17/24 no further hallucinations no fever no O2 requirement potassium replenished pt more hydrated remains afebrile blood cultures with no growth probable discharge on po abx tomorrow VTE/GI prophylaxis Discharge Plan: Home Plan to discharge in: 24 Hours
[2024-06-17] MEDS: FENTANYL 25 MCG/PATCH TD SCH (17:47)
[2024-06-17] MEDS: FENTANYL 100 MCG/PATCH TD SCH (17:48)
[2024-06-18 06:59] LABS: Absolute Basophils 0.1 K/uL (0-0.5); Absolute Eosinophils 0.1 K/uL (0-0.5); Absolute Lymphocytes (CBC) 1.8 K/uL (0.7-4.9); Absolute Monocytes 0.7 K/uL (0.1-1.3); Absolute Neutrophil 4.8 K/uL (1.8-8.0); Basophils % 1.2 % (0-1.3); Eosinophils % 1.9 % (0-4.4); Hematocrit 29.2 % (39.6-49.0); Hemoglobin 9.8 g/dL (13.6-17.9); Lymphocytes % 24.1 % (15.3-44.8); MCH 30.3 pg (27.0-35.0); MCHC 33.6 g/dL (32.0-36.0); MCV 90.2 fL (80-100); MPV 7.5 fL (7.6-11.3); Monocytes % 9.2 % (3.3-12.3); Neutrophils % 63.6 % (41.7-73.7); Platelets 301 thou/uL (152-406); RBC Red Blood Cell Count 3.24 M/uL (4.33-5.43); Red Cell Distribution Width 15.1 % (12.1-15.2)
[2024-06-18 07:16] LABS: Albumin 2.5 g/dL (3.4-5.0); Albumin/Globulin Ratio 0.7 (1.1-1.8); Anion Gap 6.7 mEq/L (5.0-15.0); Bilirubin Total 0.3 mg/dL (0.2-1.0); Globulin 3.8 g/dL (2.3-3.5); Phosphorus 2.4 mg/dL (2.5-4.9); Potassium 3.7 mEq/L (3.5-5.1); Protein, Total 6.3 g/dL (6.4-8.2)
--- NOTE | 2024-06-18 08:29 | P.PN ---
Subjective Date of Service: 06/18/24 Chief Complaint: Severe sepsis, COPD exacerbation, recent abx Subjective: Improving (Will attempt to get patient out of bed into chair today) Review of Systems 10-point ROS is otherwise unremarkable General: Other (Feeling significantly better) Eyes: Unremarkable ENT: Unremarkable Respiratory: Unremarkable Cardiovascular: Unremarkable Gastrointestinal: Unremarkable Genitourinary: Other (Continues to dribble, male pure wick "like Heaven") Musculoskeletal: Unremarkable Integumentary: Unremarkable Neurological: Unremarkable Lymphatics: Unremarkable Physical Examination - Vital Signs Temperature: 97.9 F Blood Pressure: 147/68 Pulse: 76 Respirations: 96 Pulse Ox (%): 18 - Physical Exam General: Alert, In no apparent distress, Oriented x3 HEENT: Atraumatic, Normocephalic Neck: Supple Respiratory: Normal air movement Cardiovascular: No edema, Regular rate/rhythm Capillary refill: <2 Seconds Gastrointestinal: Normal bowel sounds Musculoskeletal: No clubbing, No swelling Integumentary: No rashes Neurological: Normal speech, Normal tone, Normal affect Lymphatics: No axilla or inguinal lymphadenopathy External genitalia: Deferred Rectal: Deferred Assessment And Plan - Plan Severe sepsis 2nd to COPD exacerbation with leukocytosis AMS, fever, lactic acidosis, and volume depletion with failed outpatient abx therapy Patient's respiratory status has stabilized/worsened. Patient still requiring O2. Patient is still coughing. Patient admits to fever, chills, hallucinations, & tremors. Plan: Continue IV antibiotics Sputum and blood cultures, follow cultures, repeat lactate Repeat chest x-ray Neb treatments every 4 to 6 hours as needed O2 per protocol Continue with gentle hydration Monitor and trend labs including CBC, CMP, and lactate as needed Chronic pain Continue pain management Fentanyl 125mcg per patch q 3d, changed 06/15/24 Oxycodone 15mg po TID GERD Protonix, carafate, HOB up 30 degrees has Gtube for "venting" HTN,HLD,Gout medications as per usual 06/17/24 no further hallucinations no fever no O2 requirement potassium replenished pt more hydrated remains afebrile blood cultures with no growth probable discharge on po abx tomorrow 06/18/2024 Attempt to get out of bed and ambulate Continue p.o. antibiotics May discharge this afternoon depending on patient weakness/ambulation ability VTE/GI prophylaxis Discharge Plan: Home Plan to discharge in: 24 Hours Time Spent Managing PTS Care (In Minutes): 22
[2024-06-18] MEDS: LACTULOSE 20 GM/30 ML UCUP PO SCH (09:28)
--- NOTE | 2024-06-18 10:33 | RAD REPORT ---
EXAMINATION: TWO VIEW CHEST XR CLINICAL INDICATION: RO pneumonia TECHNIQUE: 2 views of the chest was performed. COMPARISON: 06/16/2024 FINDINGS: Patchy opacity is seen in the left base extending posteriorly probably mild atelectasis or infiltrate . Lungs otherwise grossly clear. The heart is upper limit normal in size. No displaced fractures evident. IMPRESSION: Mild patchy opacity in the left base may represent atelectasis or mild infiltrate.
[2024-06-18] MEDS: OXYCODONE HCL 5 MG TAB PO SCH (20:43)
[2024-06-19 06:21] LABS: Absolute Basophils 0.1 K/uL (0-0.5); Absolute Eosinophils 0.2 K/uL (0-0.5); Absolute Monocytes 0.9 K/uL (0.1-1.3); Absolute Neutrophil 6.1 K/uL (1.8-8.0); Basophils % 1.2 % (0-1.3); Eosinophils % 2.6 % (0-4.4); Hematocrit 31.6 % (39.6-49.0); Hemoglobin 10.6 g/dL (13.6-17.9); Lymphocytes % 21.8 % (15.3-44.8); MCHC 33.5 g/dL (32.0-36.0); MCV 89.5 fL (80-100); MPV 7.6 fL (7.6-11.3); Monocytes % 9.5 % (3.3-12.3); Neutrophils % 64.9 % (41.7-73.7); Nucleated Red Blood Cells % 0.1 % (0-0); Platelets 346 thou/uL (152-406); RBC Red Blood Cell Count 3.53 M/uL (4.33-5.43)
[2024-06-19 06:41] LABS: Albumin 2.7 g/dL (3.4-5.0); Albumin/Globulin Ratio 0.7 (1.1-1.8); Anion Gap 8.6 mEq/L (5.0-15.0); Bilirubin Total 0.3 mg/dL (0.2-1.0); Magnesium 1.9 mg/dL (1.6-2.4); Phosphorus 2.9 mg/dL (2.5-4.9); Potassium 3.6 mEq/L (3.5-5.1); Protein, Total 6.7 g/dL (6.4-8.2)
[2024-06-19] MEDS: POTASSIUM CL SA 10 MEQ TAB PO ONE (08:42)
--- NOTE | 2024-06-19 08:42 | P.PN ---
Subjective Date of Service: 06/19/24 Chief Complaint: Severe sepsis, COPD exacerbation, recent abx Subjective: Improving (feeling much better, tolerating po abx, + BM overnight. Pt is still profoundly weak. Will try to get OOB today. Worked with PT yesterday, recommended continued PT on DC) Review of Systems 10-point ROS is otherwise unremarkable General: Weakness Eyes: Unremarkable ENT: Unremarkable Respiratory: Unremarkable Cardiovascular: Unremarkable Gastrointestinal: Unremarkable Genitourinary: Unremarkable Musculoskeletal: Unremarkable Integumentary: Unremarkable Neurological: Unremarkable Lymphatics: Unremarkable Physical Examination - Vital Signs Temperature: 98.2 F Blood Pressure: 126/56 Pulse: 71 Respirations: 16 Pulse Ox (%): 98 - Physical Exam General: Alert, In no apparent distress, Oriented x3, Cooperative, Other (Weak) HEENT: Atraumatic, Normocephalic Neck: Supple Respiratory: Clear to auscultation bilaterally, Normal air movement Cardiovascular: No edema, Regular rate/rhythm Capillary refill: <2 Seconds Gastrointestinal: Soft and benign Musculoskeletal: No clubbing, No swelling Integumentary: No rashes, Other (Mild pallor) Neurological: Normal speech, Normal tone, Normal affect, Abnormal strength Lymphatics: No axilla or inguinal lymphadenopathy Urinary: Other (Male PureWick) External genitalia: Deferred Rectal: Deferred Assessment And Plan - Plan Severe sepsis 2nd to COPD exacerbation with leukocytosis AMS, fever, lactic acidosis, and volume depletion with failed outpatient abx therapy Patient's respiratory status has stabilized/worsened. Patient still requiring O2. Patient is still coughing. Patient admits to fever, chills, hallucinations, & tremors. Plan: Continue IV antibiotics Sputum and blood cultures, follow cultures, repeat lactate Repeat chest x-ray Neb treatments every 4 to 6 hours as needed O2 per protocol Continue with gentle hydration Monitor and trend labs including CBC, CMP, and lactate as needed Chronic pain Continue pain management Fentanyl 125mcg per patch q 3d, changed 06/15/24 Oxycodone 15mg po TID GERD Protonix, carafate, HOB up 30 degrees has Gtube for "venting" HTN,HLD,Gout medications as per usual 06/17/24 no further hallucinations no fever no O2 requirement potassium replenished pt more hydrated remains afebrile blood cultures with no growth changed to po abx probable discharge on po abx tomorrow - pt too weak to get oob 06/18/2024 Attempt to get out of bed and ambulate Continue p.o. antibiotics May discharge this afternoon depending on patient weakness/ambulation ability PT with mod to max assist with standing and transfers. Pt's HH SN reinitiation placed today 06/19/24 Pt feeling better, remains weak continue po abx assist OOB SS consult changed to add PT to HH or even eval for IPR SS/PT to eval Thursday VTE/GI prophylaxis - Code Status/Comfort Care Code Status Assessed: Yes (full) Time Spent Managing PTS Care (In Minutes): 32
[2024-06-19] MEDS ORDERED: FENTANYL 100 MCG/PATCH TD SCH (09:00)
[2024-06-19] MEDS ORDERED: FENTANYL 25 MCG/PATCH TD SCH (09:00)
[2024-06-19] MEDS ORDERED: KETOROLAC 10 MG TAB PO PRN (10:53)
--- NOTE | 2024-06-19 15:41 | RAD REPORT ---
Exam:Knee Right 2 View HISTORY: Right knee pain FINDINGS: No fracture or dislocation seen Osteoporosis. Small joint effusion. Mild to moderate joint space narrowing If the patient continues to have symptoms to suggest an occult fracture, ligamentous or meniscal inju ry then MRI would be recommended
[2024-06-20 06:25] LABS: Absolute Basophils 0.1 K/uL (0-0.5); Absolute Eosinophils 0.1 K/uL (0-0.5); Absolute Lymphocytes (CBC) 1.9 K/uL (0.7-4.9); Absolute Neutrophil 5.8 K/uL (1.8-8.0); Basophils % 1.1 % (0-1.3); Eosinophils % 1.1 % (0-4.4); Hematocrit 31.9 % (39.6-49.0); Hemoglobin 10.6 g/dL (13.6-17.9); MCHC 33.3 g/dL (32.0-36.0); MPV 7.6 fL (7.6-11.3); Monocytes % 11.4 % (3.3-12.3); Neutrophils % 65.4 % (41.7-73.7); Nucleated Red Blood Cells % 0.1 % (0-0); Platelets 337 thou/uL (152-406); RBC Red Blood Cell Count 3.55 M/uL (4.33-5.43); Red Cell Distribution Width 15.2 % (12.1-15.2)
[2024-06-20 06:46] LABS: Albumin 2.5 g/dL (3.4-5.0); Albumin/Globulin Ratio 0.6 (1.1-1.8); Anion Gap 7.7 mEq/L (5.0-15.0); Bilirubin Total 0.4 mg/dL (0.2-1.0); Globulin 4.4 g/dL (2.3-3.5); Phosphorus 3.4 mg/dL (2.5-4.9); Potassium 3.7 mEq/L (3.5-5.1); Protein, Total 6.9 g/dL (6.4-8.2)
[2024-06-20] MEDS: POTASSIUM CL SA 10 MEQ TAB PO ONE (09:27)
[2024-06-20] MEDS: COLCHICINE 0.6 MG TAB PO ONE (11:47)
[2024-06-20] MEDS: METHYLPREDNISOLONE 125 MG INJ IV SCH (11:47)
[2024-06-20] MEDS: COLCHICINE 0.6 MG TAB PO SCH (21:05)
[2024-06-21 07:15] LABS: Anion Gap 10.1 mEq/L (5.0-15.0); Potassium 4.1 mEq/L (3.5-5.1)
[2024-06-21 12:52] VITALS: TEMP 98.1
[2024-06-21 16:36] VITALS: BP 135/61
[2024-06-21 19:28] VITALS: O2SAT 98
== END 2024-06-21 18:30 | DRG 872 ==
LOC: ER 11:07 → ERHOLD 16:31 → 4TH 19:08
PROVIDERS: ADMIT Internal Medicine; ATTEND Hospitalist
DX: A41.9 Sepsis, unspecified organism (principal); F05 Delirium due to known physiological condition; R44.3 Hallucinations, unspecified; J44.1 Chronic obstructive pulmonary disease with (acute) exacerbation; E87.20 Acidosis, unspecified; K21.9 Gastro-esophageal reflux disease without esophagitis; R65.20 Severe sepsis without septic shock; I10 Essential (primary) hypertension; M10.9 Gout, unspecified; E86.9 Volume depletion, unspecified; E78.00 Pure hypercholesterolemia, unspecified; G89.29 Other chronic pain; M54.9 Dorsalgia, unspecified; I25.10 Atherosclerotic heart disease of native coronary artery without angina pectoris; Z11.52 Encounter for screening for COVID-19; Z85.46 Personal history of malignant neoplasm of prostate; Z90.49 Acquired absence of other specified parts of digestive tract; Z91.048 Other nonmedicinal substance allergy status; Z85.118 Personal history of other malignant neoplasm of bronchus and lung; Z79.899 Other long term (current) drug therapy
CPT/HCPCS: 36415; 71045; 71046; 74177; 80048; 80053; 80061; 81001; 83605; 83690; 83735; 84100; 84132; 84443; 85025; 85610; 85730; 87040; 87804; 87811; 93005; 94640; 97110; 97112; 97116; 97161; 97530; J0696; J1650; J2470; J2919; J7030; J7040; J7050; J7613; J7644; Q9967

== ENCOUNTER 2024-07-15 11:04 | Inpatient (IN) | payer OTHER, BC ==
[2024-07-15 11:54] LABS: Absolute Eosinophils 0.1 K/uL (0-0.5); Absolute Lymphocytes (CBC) 1.1 K/uL (0.7-4.9); Absolute Neutrophil 7.3 K/uL (1.8-8.0); Basophils % 0.4 % (0-1.3); Hematocrit 41.4 % (39.6-49.0); Hemoglobin 13.3 g/dL (13.6-17.9); Lymphocytes % 11.5 % (15.3-44.8); MCH 29.3 pg (27.0-35.0); MCHC 32.1 g/dL (32.0-36.0); MCV 91.3 fL (80-100); Monocytes % 10.4 % (3.3-12.3); Neutrophils % 76.7 % (41.7-73.7); Platelets 244 thou/uL (152-406); RBC Red Blood Cell Count 4.53 M/uL (4.33-5.43); Red Cell Distribution Width 15.8 % (12.1-15.2)
--- NOTE | 2024-07-15 12:12 | RAD REPORT ---
EXAM: CT brain without contrast HISTORY: ams COMPARISON: 01/19/2013 TECHNIQUE: Multiple contiguous axial images were obtained and a CT of the brain without contrast. Sag ittal and coronal reformats were performed. One or more of the following dose reduction techniques were used: Automated exposure control, adjust ment of the mA and/or kV according to patient size, and/or iterative reconstruction. FINDINGS: No evidence of hydrocephalus, intracranial hemorrhage, or extra-axial fluid collection. The brain is normal in morphology. No evidence of midline shift or areas of brain edema. Small calci fication noted left middle cranial fossa likely benign. The calvarium is intact. The visualized paranasal sinuses and mastoid air cells are essentially clear . IMPRESSION: No evidence of acute intracranial abnormality.
[2024-07-15 12:16] LABS: Albumin 3.5 g/dL (3.4-5.0); Albumin/Globulin Ratio 0.8 (1.1-1.8); Anion Gap 10.3 mEq/L (5.0-15.0); Bilirubin Direct 0.3 mg/dL (0-0.2); Bilirubin Indirect, Calculated 0.5 mg/dL (0.2-0.8); Bilirubin Total 0.8 mg/dL (0.2-1.0); Globulin 4.4 g/dL (2.3-3.5); Magnesium 2.5 mg/dL (1.6-2.4); Potassium 4.3 mEq/L (3.5-5.1); Protein, Total 7.9 g/dL (6.4-8.2); Thyroid Stimulating Hormone 1.77 uIU/mL (0.358-3.740)
--- NOTE | 2024-07-15 12:21 | RAD REPORT ---
EXAMINATION: ONE VIEW CHEST XR CLINICAL INDICATION: ams TECHNIQUE: Frontal chest projection is submitted. Examination is limited by patient positioning and t echnique. COMPARISON: 06/18/2024 FINDINGS: Emphysematous changes are present throughout the lungs. Linear scarring is present in the medial left lung base. No focal pulmonary infiltrate seen. The heart is normal in size. No displaced fractures identified. IMPRESSION: No acute intrathoracic abnormalities. COPD.
[2024-07-15] MEDS ORDERED: NA CHLORIDE 0.9% 1,000 ML ONE (12:29)
[2024-07-15 13:18] LABS: Blood Gas Oxyhemoglobin 87.9 % (94-97); Blood Gas THB 13.2 g/dl (12-18); Blood O2 Saturation 90.2 % (92-98.5)
[2024-07-15 13:30] LABS: Urine Clarity Slightly Cloudy (Clear); Urine Color Yellow (Yellow)
[2024-07-15 13:31] LABS: Specific Gravity 1.019 (1.005-1.030); Urine Bilirubin NEGATIVE (Negative); Urine Blood 1+ (Negative); Urine Glucose NEGATIVE (Negative); Urine Ketones NEGATIVE (Negative); Urine Micro Reflex YN NO BILL MICROSCOPIC; Urine Nitrite Negative (Negative); Urine Protein 2+ (Negative); Urine Urobilinogen 1+ mg/dL (0.2-1.0)
[2024-07-15 13:32] LABS: Urine Culture Reflex Order NOT NEEDED
--- NOTE | 2024-07-15 13:52 | ER ---
Nurse's Notes [facility] Name: Cas Denny Age: 78 yrs Sex: Male : 1945 Arrival Date: 07/15/2024 Time: 11:04 Bed 18 Private MD: Diagnosis: Generalized weakness;Inability to ambulate;Adult failure to thrive Presentation: 07/15 11:17 Chief complaint: EMS states: son called them for AMS. states, "he wasn't making any kc6 sense." upon EMS arrival pt was 88% on RA. Coronavirus screen: At this time, the client does not indicate any symptoms associated with coronavirus-19. Ebola Screen: No symptoms or risks identified at this time. Initial Sepsis Screen: Does the patient meet any 2 criteria? No. Patient's initial sepsis screen is negative. Does the patient have a suspected source of infection? No. Patient's initial sepsis screen is negative. Risk Assessment: Do you want to hurt yourself or someone else? Patient reports no desire to harm self or others. Onset of symptoms was July 15, 2024. 11:17 Method Of Arrival: EMS: [facility] kc6 11:17 Acuity: MIRZA 3 kc6 Historical: - Allergies: 11:18 adhesive tape-silicones; kc6 - PMHx: 11:18 Back pain; CAD; chronic back pain; GERD; Hypertension; Prostate Cancer; Lung Cancer; kc6 Kidney stones; - PSHx: 11:18 Cholecystectomy; Appendectomy; kc6 - Immunization history:: Adult Immunizations up to date. - Infectious Disease History:: Denies. - Social history:: Smoking status: Patient denies any tobacco usage or history of. - Family history:: not pertinent. Screenin:20 [facility] ED Fall Risk Assessment (Adult) History of falling in the last 3 months, kc6 including since admission No falls in past 3 months (0 pts) Confusion or Disorientation No (0 pts) Intoxicated or Sedated No (0 pts) Impaired Gait Yes (1 pt) Mobility Assist Device Used Yes (1 pt) Altered Elimination No (0 pt) Score/Fall Risk Level 0 - 2 = Low Risk Oriented to surroundings. Abuse screen: Denies threats or abuse. Denies injuries from another. Nutritional screening: No deficits noted. Tuberculosis screening: No symptoms or risk factors identified. Assessment: 11:20 General: Appears in no apparent distress. comfortable, well groomed, well developed, kc6 Behavior is calm, cooperative, appropriate for age, drowsy. Pain: Denies pain. Neuro: Level of Consciousness is obeys commands, lethargic, Oriented to person, place, time, situation, Appropriate for age. Cardiovascular: Capillary refill < 3 seconds. Respiratory: Airway is patent Trachea midline Respiratory effort is even, unlabored, Respiratory pattern is regular, symmetrical. GI: PEG tube in place, clamped. to gravity drainage. Site clean. : No signs and/or symptoms were reported regarding the genitourinary system. EENT: No signs and/or symptoms were reported regarding the EENT system. Derm: No signs and/or symptoms reported regarding the dermatologic system. Skin is intact, is healthy with good turgor, Skin is pink, warm \\T\\ dry. Musculoskeletal: No signs and/or symptoms reported regarding the musculoskeletal system. Circulation, motion, and sensation intact. Capillary refill < 3 seconds, Range of motion: intact in all extremities. 11:40 Reassessment: Jenifer RN at bedside attempting to start an IV and collect labs. kc6 12:32 Reassessment: Patient appears in no apparent distress at this time. No changes from kc6 previously documented assessment. Patient and/or family updated on plan of care and expected duration. Pain level reassessed. Patient is alert, oriented x 3, equal unlabored respirations, skin warm/dry/pink. 14:19 Reassessment: Patient appears in no apparent distress at this time. No changes from kc6 previously documented assessment. Patient and/or family updated on plan of care and expected duration. Pain level reassessed. Patient is alert, oriented x 3, equal unlabored respirations, skin warm/dry/pink. 15:19 Reassessment: Patient appears in no apparent distress at this time. No changes from kc6 previously documented assessment. Patient and/or family updated on plan of care and expected duration. Pain level reassessed. Patient is alert, oriented x 3, equal unlabored respirations, skin warm/dry/pink. 16:19 Reassessment: Patient appears in no apparent distress at this time. No changes from kc6 previously documented assessment. Patient and/or family updated on plan of care and expected duration. Pain level reassessed. Patient is alert, oriented x 3, equal unlabored respirations, skin warm/dry/pink. Vital Signs: 11:17 BP 146 / 73; Pulse 87; Resp 18 S; Temp 98.5(O); Pulse Ox 83% on R/A; Weight 77.11 kg kc6 (R); Height 5 ft. 8 in. (R); Pain 0/10; 11:20 Pulse Ox 95% on 4 lpm NC; kc6 12:32 BP 143 / 78; Pulse 85; Resp 15 S; Pulse Ox 96% on 3 lpm NC; kc6 14:19 BP 135 / 76; Pulse 93; Resp 15 S; Pulse Ox 94% on 3 lpm NC; kc6 16:27 BP 135 / 72; Pulse 89; Resp 18 S; Pulse Ox 96% on 3 lpm NC; kc6 11:17 Body Mass Index 25.85 (77.11 kg, 172.72 cm) kc6 11:17 Pain Scale: Adult kc ED Course: 11:14 Patient arrived in ED. rt 11:14 Gunnar Corey MD is Attending Physician. rt 11:17 Arcelia Gonzalez, JENNIFER is Primary Nurse. kc6 11:18 Triage completed. kc6 11:18 Arm band placed on. kc6 11:20 Patient has correct armband on for positive identification. Placed in gown. Bed in low kc6 position. Call light in reach. Side rails up X2. Adult w/ patient. athletic monitor on. Pulse ox on. NIBP on. Door closed. Noise minimized. Lights dimmed. Pillow given. 11:20 Oxygen administration via nasal cannula \\T\\ 4L/min. kc6 11:46 Initial lab(s) drawn, by ar, sent to lab. Inserted saline lock: 20 gauge in right upper aa5 arm, using aseptic technique. Blood collected. Flushed with 10 mL NS. 12:01 CT Head Brain wo Cont In Process Unspecified. EDMS 12:12 Cleaned of incontinence. Linen changed. kc6 12:12 Straight cath inserted, using sterile technique, 16 Fr. Returned clear yellow urine. kc6 Patient tolerated well. 12:17 XRAY Chest (1 view) In Process Unspecified. EDMS 13:51 Micki Mclain is Hospitalizing Provider. rt 15:17 Chest Abdomen Pelvis W Cont In Process Unspecified. EDMS 15:17 Primary Nurse role handed off by Arcelia Gonzalez RN kc6 16:27 No provider procedures requiring assistance completed. Patient admitted, IV remains in kc6 place. Administered Medications: 12:34 Drug: NS 0.9% IV 1000 ml IV at 1000 ml once; to be given as a bolus over 60 minutes kc6 Route: IV; Rate: 1000 ml; Site: right upper arm; 14:19 Follow up: Response: No adverse reaction; IV Status: Completed infusion; IV Intake: kc6 1000ml 14:19 Drug: Rocephin - Rocephin (cefTRIAXone) IVPB 1 grams IVPB once over 30 mins; (mix in 50 kc6 mL NS) Route: IVPB; Infused Over: 30 mins; Site: right upper arm; 14:40 Follow up: Response: No adverse reaction; IV Status: Completed infusion; IV Intake: [id number] Medication: 16:28 VIS not applicable for this client. kc6 Intake: 14:19 IV: 1000ml; Total: 1000ml. kc6 14:40 IV: 10ml; Total: 1010ml. kc6 Outcome: 13:52 Decision to Hospitalize by Provider. rt 15:16 Patient left the ED. aa5 16:27 Admitted to Med/surg accompanied by tech, via stretcher, room 222, with oxygen, with kc6 chart, 16:27 Condition: good 16:27 Instructed on the need for admit, 16:28 Patient left the ED. kc6 Signatures: Dispatcher [employer] Jenifer Soliz RN RN aa5 Arcelia Gonzalez RN RN kc6 Gunnar Corey MD MD rt
--- NOTE | 2024-07-15 13:53 | EDPHYS ---
Physician Documentation [facility] Name: Cas Denny Age: 78 yrs Sex: Male : 1945 Arrival Date: 07/15/2024 Time: 11:04 Bed 18 Private MD: ED Physician Gunnar Corey HPI: 07/15 13:52 This 78 yrs old Male presents to ER via EMS with complaints of General Weakness, rt Altered Mental Status. 13:52 Patient was recently to the hospital, subsequently went to inpatient rehab. Was well rt when he went home, over the past week, he has had progressively worsening confusion, generalized weakness to the point where he can no longer ambulate. Has had decreased p.o. intake. Denies other acute complaints, symptoms are moderate in severity, no other aggravating or alleviating factors.. Historical: - Allergies: 11:18 adhesive tape-silicones; kc6 - PMHx: 11:18 Back pain; CAD; chronic back pain; GERD; Hypertension; Prostate Cancer; Lung Cancer; kc6 Kidney stones; - PSHx: 11:18 Cholecystectomy; Appendectomy; kc6 - Immunization history:: Adult Immunizations up to date. - Infectious Disease History:: Denies. - Social history:: Smoking status: Patient denies any tobacco usage or history of. - Family history:: not pertinent. ROS: 13:52 Unable to obtain ROS due to altered mental status, rt Exam: 13:52 Chest/axilla: Normal chest wall appearance and motion. Nontender with no deformity. rt No lesions are appreciated. Cardiovascular: Regular rate and rhythm with a normal S1 and S2. No gallops, murmurs, or rubs. Normal PMI, no JVD. No pulse deficits. Respiratory: Lungs have equal breath sounds bilaterally, clear to auscultation and percussion. No rales, rhonchi or wheezes noted. No increased work of breathing, no retractions or nasal flaring. Abdomen/GI: Soft, non-tender, with normal bowel sounds. No distension or tympany. No guarding or rebound. No evidence of tenderness throughout. MS/ Extremity: Pulses equal, no cyanosis. Neurovascular intact. Full, normal range of motion. 13:52 Constitutional: The patient appears Confused, chronically ill-appearing 13:52 ECG was reviewed by the Attending Physician. Vital Signs: 11:17 BP 146 / 73; Pulse 87; Resp 18 S; Temp 98.5(O); Pulse Ox 83% on R/A; Weight 77.11 kg kc6 (R); Height 5 ft. 8 in. (R); Pain 0/10; 11:20 Pulse Ox 95% on 4 lpm NC; kc6 12:32 BP 143 / 78; Pulse 85; Resp 15 S; Pulse Ox 96% on 3 lpm NC; kc6 14:19 BP 135 / 76; Pulse 93; Resp 15 S; Pulse Ox 94% on 3 lpm NC; kc6 16:27 BP 135 / 72; Pulse 89; Resp 18 S; Pulse Ox 96% on 3 lpm NC; kc6 11:17 Body Mass Index 25.85 (77.11 kg, 172.72 cm) [facility] 11:17 Pain Scale: Adult kc6 MDM: 11:14 Medical Screening Exam initiated rt 19:09 Differential Diagnosis: Altered mental status, electrolyte disturbance, dysrhythmia. rt Data reviewed: vital signs, nurses notes, lab test result(s), EKG, radiologic studies. Consideration of Admission/Observation Patient was admitted/placed on observation. Management of patient was discussed with the following: Hospitalist: Agrees to admit. I considered the following discharge prescriptions or medication management in the emergency department Medications were administered in the Emergency Department. See MAR. Independent interpretation of the following test(s) in the Emergency Department X-Ray: My interpretation is No consolidation seen on my interpretation of x-ray images. Care significantly affected by the following chronic conditions: Hypertension. Counseling: I had a detailed discussion with the patient and/or guardian regarding the historical points, exam findings, and any diagnostic results supporting the discharge/admit diagnosis, lab results, radiology results, the need for further work-up and treatment in the hospital. Response to treatment: There is no appreciated change of the patient's symptoms at this time. 07/15 11:15 Order name: Basic Metabolic Panel; Complete Time: 12:37 rt 07/15 11:15 Order name: CBC with Diff; Complete Time: 12:37 rt 07/15 11:15 Order name: LFT's; Complete Time: 12:37 rt 07/15 11:15 Order name: Magnesium; Complete Time: 12:37 rt 07/15 11:15 Order name: Troponin HS; Complete Time: 12:37 rt 07/15 11:15 Order name: UAM; Complete Time: 13:35 rt 07/15 11:15 Order name: ABG; Complete Time: 13:35 rt 07/15 11:15 Order name: TSH; Complete Time: 12:37 rt 07/15 15:02 Order name: Ammonia EDMS 07/15 15:02 Order name: Procalcitonin EDMS 07/15 15:02 Order name: Lactate w/ 2H reflex if indic. EDMS 07/15 15:02 Order name: CBC with Automated Diff EDMS 07/15 15:02 Order name: CBC with Automated Diff EDMS 07/15 15:02 Order name: CBC with Automated Diff EDMS 07/15 15:02 Order name: CBC with Automated Diff EDMS 07/15 15:02 Order name: Comprehensive Metabolic Panel EDMS 07/15 15:02 Order name: Comprehensive Metabolic Panel EDMS 07/15 15:02 Order name: Comprehensive Metabolic Panel EDMS 07/15 15:02 Order name: Urinalysis w/ reflexes EDMS 07/15 15:03 Order name: Comprehensive Metabolic Panel EDMS 07/15 15:03 Order name: Lipid Profile EDMS 07/15 15:03 Order name: Lipid Profile EDMS 07/15 15:03 Order name: Magnesium EDMS 07/15 15:03 Order name: Magnesium EDMS 07/15 15:03 Order name: Magnesium EDMS 07/15 15:03 Order name: Magnesium EDMS 07/15 15:03 Order name: Phosphorus EDMS 07/15 15:03 Order name: Phosphorus EDMS 07/15 15:03 Order name: Phosphorus EDMS 07/15 15:03 Order name: Phosphorus EDMS 07/15 15:03 Order name: Blood Culture EDMS 07/15 11:15 Order name: XRAY Chest (1 view); Complete Time: 12:37 rt 07/15 11:15 Order name: CT Head Brain wo Cont; Complete Time: 12:37 rt 07/15 15:03 Order name: Barium Swallow Modified EDMS 07/15 15:06 Order name: Chest Abdomen Pelvis W Cont EDMS 07/15 11:15 Order name: EKG; Complete Time: 11:16 rt 07/15 15:02 Order name: Physical Therapy Consult EDMS 07/15 15:02 Order name: Speech Therapy Consult EDMS 07/15 11:15 Order name: Cardiac monitoring; Complete Time: rt 07/15 11:15 Order name: EKG - Nurse/Tech; Complete Time: rt 07/15 11:15 Order name: IV Saline Lock; Complete Time: rt 07/15 11:15 Order name: Labs collected and sent; Complete Time: rt 07/15 11:15 Order name: O2 Per Protocol; Complete Time: rt 07/15 11:15 Order name: O2 Sat Monitoring; Complete Time: : rt EC:52 Rate is 88 beats/min. Rhythm is regular, Normal Sinus Rhythm with No ectopy. QRS [place] rt is Normal. GA interval is normal. QRS interval is normal. QT interval is normal. No Q waves. T waves are Normal. No ST changes noted. Interpreted by me. Administered Medications: 12:34 Drug: NS 0.9% IV 1000 ml IV at 1000 ml once; to be given as a bolus over 60 minutes kc6 Route: IV; Rate: 1000 ml; Site: right upper arm; 14:19 Follow up: Response: No adverse reaction; IV Status: Completed infusion; IV Intake: kc6 1000ml 14:19 Drug: Rocephin - Rocephin (cefTRIAXone) IVPB 1 grams IVPB once over 30 mins; (mix in 50 kc6 mL NS) Route: IVPB; Infused Over: 30 mins; Site: right upper arm; 14:40 Follow up: Response: No adverse reaction; IV Status: Completed infusion; IV Intake: [id number] Disposition Summary: 07/15/24 13:52 Hospitalization Ordered Notes: Hospitalization Status: Observation rt Provider: Micki Mclain rt Location: Telemetry/MedSurg (observation) rt Condition: Stable rt Problem: an ongoing problem rt Symptoms: are unchanged rt Bed/Room Type: Standard rt Room Assignment: 222(07/15/24 15:08) sp Diagnosis - Generalized weakness rt - Inability to ambulate rt - Adult failure to thrive rt Forms: - Medication Reconciliation Form rt - SBAR form rt - Leadership Thank You Letter rt Signatures: Dispatcher [employer] EDKY Bess Spears Kaitlyn, RN RN kc6 Gunnar Corey MD MD rt Corrections: (The following items were deleted from the chart) 15: 15:02 CT CHEST,ABD,PELVIS W/WO ordered. EDMS EDMS 15:08 13:52 rt sp
--- NOTE | 2024-07-15 14:07 | P.HP ---
Certification for Inpatient Patient admitted to: Inpatient With expected LOS: >2 Midnights Practitioner: I am a practitioner with admitting privileges, knowledge of patient current condition, hospital course, and medical plan of care. Services: Services provided to patient in accordance with Admission requirements found in Title 42 Section 412.3 of the Code of Federal Regulations Patient History Date of Service: 07/15/24 Reason for admission: Generalized weakness/AMS History of Present Illness: Mr. Denny is an 78-year-old gentleman with a past medical history of chroni c back pain, CAD, hypertension, COPD, prostate CA, kidney stones, lung cancer, and severe GERD. 06/16/2024 Mr. Denny was admitted for severe sepsis, COPD exacerbation, with failed outpatient therapy. He was discharged on 06/21/2024 to [facility] rehab. He apparently did well at rehab and was sent home after 2 weeks. His son, Krishan, is his caregiver and states that he has declined ever since. He states that he has been weak, lethargic, alternating between lucid and "talking crazy". His home health nurse attempted to transfer with him today at his home and urged Krishan to bring him to the ED. On assessment, patient is poorly responsive, on O2 at 2 L, answers to his name but then does not answer questions. Krishan states that his father has not been eating. In discussion with possible end-of-life trending, we spoke about anorexia and the inability to process nutrients. Krishan states his father states he is hungry but then does not eat because it hurts his stomach. He does have a PEG tube. The hospitalist program was asked to admit for generalized weakness and altered mental status. We will keep him n.p.o. until swallow study and speech consult completed. Tube feedings with Jevity 3 times daily in the meantime. Of note, right lower ext edema greater than left. Will US to r/o DVT second to recent hospitalization and bed bound condition over the past two weeks. Labs: At discharge last month H/H 10.6/31.9 with platelets of 337, today H/H 13.3/41.4 with platelets of 244. At discharge last month creatinine 1.11, today creatinine 1.44 with a GFR of 49, magnesium 2.5, Trope 9.0. ABG pH 7.39, pO2 63.2, pCO2 43.2, TSH 1.77 Imaging: CT head and chest x-ray negative for acute findings. Vital signs on admission 135/76, 93, 11, 95% on 2 L, afebrile Allergies adhesive tape Adverse Reaction (Mild, Verified 01/12/20 10:41) blisters Home medications list reviewed: Yes Home Medications: Amlodipine Besylate [Norvasc] 10 mg PO DAILY 12/25/11 Atorvastatin Calcium [Lipitor*] 20 mg PO BEDTIME 06/24/18 Gabapentin [Neurontin] 300 mg PO DAILY 06/24/18 fentaNYL [Duragesic] 125 mcg TD Q72H 01/10/19 allopurinoL [Zyloprim*] 300 mg PO DAILY 04/05/19 Megestrol [Megace*] 40 mg PO DAILY 01/07/20 Metoprolol Succinate 25 mg PO DAILY 01/07/20 Albuterol Neb [Proventil 0.083% Neb Soln] 2.5 mg IH QIDP PRN 06/16/24 Omeprazole [Prilosec] 40 mg PO DAILY 06/16/24 Oxycodone HCl [Oxycontin] 15 mg PO TID 06/16/24 PARoxetine HCL [Paxil*] 10 mg PO DAILY 06/16/24 Promethazine Tab [Phenergan*] 25 mg PO BIDP PRN 06/16/24 Vibegron [Gemtesa] 75 mg PO DAILY 06/16/24 Albuterol Neb [Proventil 0.083% Neb Soln] 2.5 mg NEB [id number] amp 06/21/24 Amlodipine [Norvasc*] 10 mg PO DAILY@1200 #30 tab 06/21/24 Amox/Clavulanate [Augmentin 875-125 Tab*] 875 mg PO BID #10 tab 06/21/24 Atorvastatin Calcium [Lipitor*] 20 mg PO BEDTIME #30 tab 06/21/24 Colchicine [Colcrys *] 0.6 mg PO BID #10 tab 06/21/24 Enoxaparin Sodium [Lovenox 40 MG INJ*] 40 mg SQ DAILY syr 06/21/24 Ipratropium Neb [Atrovent*] 0.5 mg NEB [id number] amp 06/21/24 Lactulose [Cephulac*] 30 ml PO DAILY 06/21/24 Megestrol [Megace*] 40 mg PO DAILY tab 06/21/24 Metoprolol Succinate [Toprol Xl*] 25 mg PO [id number] tab 06/21/24 Oxycodone HCl [Oxyir (Oxycodone HCl Imr)*] 10 mg PO Q8H tab 06/21/24 PARoxetine HCL [Paxil*] 10 mg PO DAILY tab 06/21/24 Sucralfate [Carafate*] 1 gm PO QID tab 06/21/24 allopurinoL [Zyloprim*] 300 mg PO BEDTIME #30 tab 06/21/24 predniSONE [Deltasone] 20 mg PO DAILY #5 tab 06/21/24 - Past Medical/Surgical History Has patient received pneumonia vaccine in the past: Yes Diabetic: No -: chronic back and neck pain -: hypertension -: prostate cancer -: bad esophagus -: GERD -: CAD -: kidney stones -: COPD -: 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 -: neck surgery -: back surgery x2 -: appendectomy -: hernia repair -: cholecystectomy -: prostatectomy -: bladder dilation -: DVR stimulator Psychosocial/ Personal History: Lives at home with his Son - Family History Mother -: Heart disease Father -: Cancer - Social History Smoking Status: Unknown if ever smoked Alcohol use: No CD- Drugs: No Caffeine use: No Place of Residence: Home Review of Systems 10-point ROS is otherwise unremarkable (All hx from EMR and his Son, Krishan) General: Weakness, Malaise Eyes: Unremarkable ENT: Unremarkable Respiratory: Unremarkable Cardiovascular: Unremarkable Gastrointestinal: Abdominal Pain Genitourinary: Unremarkable Musculoskeletal: Back Pain, Leg Pain Integumentary: Unremarkable Neurological: Weakness, Confusion, As per HPI Lymphatics: Unremarkable Physical Examination - Physical Exam General: Other (Obtunded) HEENT: Atraumatic, Normocephalic Neck: Supple Respiratory: Normal air movement Cardiovascular: Regular rate/rhythm (Right leg more edematous than left), Edema Capillary refill: <2 Seconds Gastrointestinal: Hypoactive (PEG tube) Musculoskeletal: No clubbing Integumentary: Other (Ashen, abrasion to right knee) Neurological: Abnormal strength, Abnormal tone, Abnormal affect Lymphatics: No axilla or inguinal lymphadenopathy External genitalia: Deferred Rectal: Deferred - Studies Laboratory Data (last 24 hrs) 07/15/24 07/15/24 11:46 11:46 WBC 9.50 Hgb 13.3 L Hct 41.4 Plt Count 244 Sodium 139 Potassium 4.3 BUN 23 H Creatinine 1.44 H Glucose 130 H Magnesium 2.5 H Total Bilirubin 0.8 AST 23 ALT 42 Alkaline Phosphatase 80 Assessment and Plan - Plan Generalized weakness possibly secondary to immobility for 2 weeks Acute hypoxia secondary to poor inspiratory depth with history of COPD, patient on 2 to 3 L O2 at home ERLIN secondary to volume depletion as evidenced by hemoconcentration and elevated creatinine Edema right leg 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 Tube feeds with Jevity for now Neb treatments O2 at 2 L Ultrasound right lower extremity to rule out DVT PT consult Turn cough and deep breathe every 2 hours Neurochecks every 4 hours VTE/GI prophylaxis - Advance Directives Does patient have a Living Will: No Does patient have a Durable POA for Healthcare: No
[2024-07-15] MEDS ORDERED: CEFTRIAXONE 1000 MG/VIAL ONE (14:08)
[2024-07-15] MEDS ORDERED: ACETAMINOPHEN 500 MG TAB PO PRN (14:33)
[2024-07-15] MEDS ORDERED: NA CHLORIDE 0.9% 1,000 ML IV SCH (15:00)
[2024-07-15] MEDS: JEVITY 1.5 CAL LIQUID 1,000 ML BOT FT SCH (15:15)
--- NOTE | 2024-07-15 15:36 | RAD REPORT ---
EXAM: Chest Abdomen Pelvis W Cont CLINICAL INDICATION: Lung and prostate cancer TECHNIQUE: CT chest, abdomen and pelvis was performed, with 100 cc Isovue-300 IV contrast, as per de partment protocol. Axial, sagittal and coronal reconstructions were obtained. One or more of the following dose reduction techniques were used: Automated exposure control, adjustment of the mA and/o r kV according to the patient size, and/or iterative reconstruction. Unless otherwise specified, incidental findings do not require dedicated imaging follow-up. [id number]. Oral contrast not given. This limits evaluation of the bowel. COMPARISON: May 2024 FINDINGS: Mild groundglass opacities right upper lobe. 2 cm thrombus right main pulmonary artery. Thrombus right upper lobe pulmonary artery No mediastinal or hilar lymphadenopathy. No pleural effusion Small hepatic cyst. Cholecystectomy. Atrophic pancreas. The spleen, and adrenals unremarkable. Tiny nonobstructing renal calculi Percutaneous tube within the stomach There is no evidence of diverticulitis. Postsurgical changes pelvis and lumbar spine. Prostatectomy. No lymphadenopathy seen. IMPRESSION: Right pulmonary embolus . Right heart strain is present. Mild right upper lobe groundglass opacities may represent pneumonitis or pneumonia
[2024-07-15] MEDS: INSULIN REGULAR (HUMAN) 100 UNIT/ML SQ SCH (16:30)
--- NOTE | 2024-07-15 16:43 | RAD REPORT ---
EXAM:Extremity Venous Uni Ltd HISTORY: Right leg pain TECHNIQUE: Sonographic evaluation right lower extremity performed.Grayscale, color and spectral misael sis performed on all vessels COMPARISON: 2019 FINDINGS: Right common femoral, superficial femoral, greater saphenous, and popliteal veins are compressible an d demonstrate augmentation. Doppler demonstrates good flow. Echogenic material consistent with acute thrombus is present within the right posterior tibial vein. The vein is partially compressible. IMPRESSION: Acute thrombus right posterior tibial vein
[2024-07-15 16:47] VITALS: BMI 25.7
[2024-07-15] MEDS: ALBUTEROL 2.5 MG/3 ML NEB SOL NEB SCH (16:50)
[2024-07-15] MEDS: HEPARIN/D5W 25,000 UNIT/500 ML BAG IV SCH (17:22)
[2024-07-15 17:23] VITALS: BP 141/62; TEMP 97.1
[2024-07-15 17:49] VITALS: O2SAT 94
--- NOTE | 2024-07-15 18:09 | P.DS ---
Admission Date: 07/15/24 Discharge Date: 07/15/24 Disposition: TRANSFER TO [facility] Reason for Admission: Generalized weakness/AMS Brief History of Present Illness: Mr. Denny is an 78-year-old gentleman with a past medical history of chronic back pain, CAD, hypertension, COPD, prostate CA, kidney stones, lung cancer, and severe GERD. 06/16/2024 Mr. Denny was admitted for severe sepsis, COPD exacerbation, with failed outpatient therapy. He was discharged on 06/21/2024 to [facility] rehab. He apparently did well at rehab and was sent home after 2 weeks. His son, Krishan, is his caregiver and states that he has declined ever since. He states that he has been weak, lethargic, alternating between lucid and "talking crazy". His home health nurse attempted to transfer with him today at his home and urged Krishan to bring him to the ED. On assessment, patient is poorly responsive, on O2 at 2 L, answers to his name but then does not answer questions. Krishan states that his father has not been eating. In discussion with possible end-of-life trending, we spoke about anorexia and the inability to process nutrients. Krishan states his father states he is hungry but then does not eat because it hurts his stomach. He does have a PEG tube. The hospitalist program was asked to admit for generalized weakness and altered mental status. We will keep him n.p.o. until swallow study and speech consult completed. Tube feedings with Jevity 3 times daily in the meantime. Of note, right lower ext edema greater than left. Will US to r/o DVT second to recent hospitalization and bed bound condition over the past two weeks. Labs: At discharge last month H/H 10.6/31.9 with platelets of 337, today H/H 13.3/41.4 with platelets of 244. At discharge last month creatinine 1.11, today creatinine 1.44 with a GFR of 49, magnesium 2.5, Trope 9.0. ABG pH 7.39, pO2 63.2, pCO2 43.2, TSH 1.77 Imaging: CT head and chest x-ray negative for acute findings. Vital signs on admission 135/76, 93, 11, 95% on 2 L, afebrile Hospital Course: Shortly after Mr. Denny arrived on tele unit, reports from US and CT returned with +findings of DVT and PE. Acute 2cm thrombus in right pulmonary artery with right heart strain. Heparin drip initiated and [facility] called to initiate transfer. We have no ability to do ECHO over the weekend and EKOS is not available at this facility. Mr. Denny and family notified of CT results and need for transfer. Spoke with Dr. Langley (Cardiology) and then to Dr. Townsend (CCU Clinical Nursing Assistant) at [facility] and they kindly accepted this patient in transfer. Awaiting administrative approval. Vital Signs/Physical Exam: Temp Pulse Resp BP Pulse Ox 97.1 F 83 16 141/62 H 93 07/15/24 17:23 07/15/24 17:23 07/15/24 17:23 07/15/24 17:23 07/15/24 17:23 General: Other (mildly obtunded) HEENT: Atraumatic, Normocephalic Neck: Supple Respiratory: Normal air movement (shallow) Cardiovascular: Regular rate/rhythm, Normal S1 S2, Edema (right lower extremity) Capillary refill: <2 Seconds Gastrointestinal: Soft and benign Musculoskeletal: No clubbing, No swelling Integumentary: Other (ashen ) Neurological: Abnormal strength, Abnormal tone, Abnormal affect Lymphatics: No axilla or inguinal lymphadenopathy External genitalia: Deferred Rectal: Deferred Laboratory Data at Discharge: WBC 9.50 thou/uL (4.3-10.9) 07/15/24 11:46 Hgb 13.3 g/dL (13.6-17.9) L 07/15/24 11:46 Hct 41.4 % (39.6-49.0) 07/15/24 11:46 Plt Count 244 thou/uL (152-406) 07/15/24 11:46 Sodium 139 mEq/L (136-145) 07/15/24 11:46 Potassium 4.3 mEq/L (3.5-5.1) 07/15/24 11:46 BUN 23 mg/dL (7-18) H 07/15/24 11:46 Creatinine 1.44 mg/dL (0.70-1.30) H 07/15/24 11:46 Glucose 130 mg/dL (74-106) H 07/15/24 11:46 Magnesium 2.5 mg/dL (1.6-2.4) H 07/15/24 11:46 Total Bilirubin 0.8 mg/dL (0.2-1.0) 07/15/24 11:46 AST 23 U/L (15-37) 07/15/24 11:46 ALT 42 U/L (16-61) 07/15/24 11:46 Alkaline Phosphatase 80 U/L (45-117) 07/15/24 11:46 Home Medications: Amlodipine Besylate [Norvasc] 10 mg PO DAILY 12/25/11 Atorvastatin Calcium [Lipitor*] 20 mg PO BEDTIME 06/24/18 Gabapentin [Neurontin] 300 mg PO DAILY 06/24/18 fentaNYL [Duragesic] 125 mcg TD Q72H 01/10/19 allopurinoL [Zyloprim*] 300 mg PO DAILY 04/05/19 Megestrol [Megace*] 40 mg PO DAILY 01/07/20 Metoprolol Succinate 25 mg PO DAILY 01/07/20 Albuterol Neb [Proventil 0.083% Neb Soln] 2.5 mg IH QIDP PRN 06/16/24 Omeprazole [Prilosec] 40 mg PO DAILY 06/16/24 Oxycodone HCl [Oxycontin] 15 mg PO TID 06/16/24 PARoxetine HCL [Paxil*] 10 mg PO DAILY 06/16/24 Promethazine Tab [Phenergan*] 25 mg PO BIDP PRN 06/16/24 Vibegron [Gemtesa] 75 mg PO DAILY 06/16/24 Albuterol Neb [Proventil 0.083% Neb Soln] 2.5 mg NEB [id number] amp 06/21/24 Amlodipine [Norvasc*] 10 mg PO DAILY@1200 #30 tab 06/21/24 Amox/Clavulanate [Augmentin 875-125 Tab*] 875 mg PO BID #10 tab 06/21/24 Atorvastatin Calcium [Lipitor*] 20 mg PO BEDTIME #30 tab 06/21/24 Colchicine [Colcrys *] 0.6 mg PO BID #10 tab 06/21/24 Enoxaparin Sodium [Lovenox 40 MG INJ*] 40 mg SQ DAILY syr 06/21/24 Ipratropium Neb [Atrovent*] 0.5 mg NEB [id number] amp 06/21/24 Lactulose [Cephulac*] 30 ml PO DAILY 06/21/24 Megestrol [Megace*] 40 mg PO DAILY tab 06/21/24 Metoprolol Succinate [Toprol Xl*] 25 mg PO [id number] tab 06/21/24 Oxycodone HCl [Oxyir (Oxycodone HCl Imr)*] 10 mg PO Q8H tab 06/21/24 PARoxetine HCL [Paxil*] 10 mg PO DAILY tab 06/21/24 Sucralfate [Carafate*] 1 gm PO QID tab 06/21/24 allopurinoL [Zyloprim*] 300 mg PO BEDTIME #30 tab 06/21/24 predniSONE [Deltasone] 20 mg PO DAILY #5 tab 06/21/24 Diet: NPO now Activity: Fall precautions (Awaiting administrative approval for transfer to [facility]) Followup: Ester Alejandra DO [Primary Care Provider] -
[2024-07-15 18:35] LABS: PT Prothrombin Time 15.7 SECONDS (9.4-12.5); Protime INR 1.42
--- NOTE | 2024-07-15 19:30 | P.PN ---
Date of Service: 07/15/[address] [facility] at 1915 to Katharine at
[2024-07-15] MEDS ORDERED: ALBUTEROL 2.5 MG/3 ML NEB SOL ONE (19:42)
[2024-07-15] MEDS: HYDROMORPHONE HCL 1 MG/ML INJ IV ONE (20:33)
[2024-07-15] MEDS ORDERED: ATORVASTATIN 20 MG TAB PO SCH (21:00)
[2024-07-16] MEDS ORDERED: AMLODIPINE 10 MG TAB PO SCH (09:00)
[2024-07-16] MEDS ORDERED: ENOXAPARIN 40 MG/0.4 ML SQ SCH (09:00)
--- NOTE | 2024-07-17 12:44 | EKG ---
Test Date: 2024-07-15 Test Time: 11:25:17 Solar Sales Specialist: ESTELA MEASUREMENT RESULTS: Intervals: Rate: 88 UT: 150 QRSD: 68 QT: 366 QTc: 442 Union: P: 47 UT: 150 QRS: 24 T: 16 INTERPRETIVE STATEMENTS: Normal sinus rhythm Low voltage QRS Borderline ECG Compared to ECG 06/16/2024 11:28:32 Sinus tachycardia no longer present Fusion complex(es) no longer present Electronically Signed On 07-17-24 12:39:53 SENIOR SAFETY MANAGEMENT CONSULTANT by Heber Wooten
== END 2024-07-15 20:40 | disposition short-term general hospital (02) | DRG 682 ==
LOC: ER 11:04 → ERHOLD 14:33 → 2ND 16:15
PROVIDERS: ADMIT Internal Medicine; ATTEND Internal Medicine
PROC: 4A033R1 Measurement of Arterial Saturation, Peripheral, Percutaneous Approach (ICD-10-PCS; principal; 2024-07-15)
DX: N17.9 Acute kidney failure, unspecified (principal); I26.99 Other pulmonary embolism without acute cor pulmonale; I82.441 Acute embolism and thrombosis of right tibial vein; K21.9 Gastro-esophageal reflux disease without esophagitis; I10 Essential (primary) hypertension; E86.9 Volume depletion, unspecified; J44.9 Chronic obstructive pulmonary disease, unspecified; I25.10 Atherosclerotic heart disease of native coronary artery without angina pectoris; R62.7 Adult failure to thrive; R60.9 Edema, unspecified; R09.02 Hypoxemia; R53.1 Weakness; Z68.25 Body mass index [BMI] 25.0-25.9, adult; Z90.49 Acquired absence of other specified parts of digestive tract; Z85.46 Personal history of malignant neoplasm of prostate; Z74.01 Bed confinement status; Z93.1 Gastrostomy status; Z79.52 Long term (current) use of systemic steroids; Z99.81 Dependence on supplemental oxygen; Z79.899 Other long term (current) drug therapy; Z85.118 Personal history of other malignant neoplasm of bronchus and lung
CPT/HCPCS: 36415; 36600; 51702; 70450; 71045; 71260; 74177; 80048; 80076; 81001; 82140; 82805; 83605; 83735; 84145; 84443; 84484; 85025; 85610; 85730; 93005; 93971; 94640; 96361; 96365; 99285; J0696; J1171; J1644; J7030; J7613; Q9967

== ENCOUNTER 2024-08-17 15:59 | Inpatient (IN) | payer OTHER, BC ==
[2024-08-17 17:56] LABS: Absolute Basophils 0.1 K/uL (0-0.5); Absolute Eosinophils 0.2 K/uL (0-0.5); Absolute Monocytes 1.1 K/uL (0.1-1.3); Absolute Neutrophil 9.5 K/uL (1.8-8.0); Eosinophils % 1.4 % (0-4.4); Hematocrit 36.4 % (39.6-49.0); Hemoglobin 11.8 g/dL (13.6-17.9); Lymphocytes % 15.7 % (15.3-44.8); MCH 28.3 pg (27.0-35.0); MCHC 32.4 g/dL (32.0-36.0); MCV 87.3 fL (80-100); MPV 8.2 fL (7.6-11.3); Monocytes % 8.4 % (3.3-12.3); Neutrophils % 73.5 % (41.7-73.7); Platelets 418 thou/uL (152-406); RBC Red Blood Cell Count 4.17 M/uL (4.33-5.43); Red Cell Distribution Width 16.4 % (12.1-15.2)
--- NOTE | 2024-08-17 18:22 | RAD REPORT ---
EXAMINATION: ONE VIEW CHEST XR CLINICAL INDICATION: AMS TECHNIQUE: Frontal chest projection is submitted. Examination is limited by patient positioning and t echnique. COMPARISON: 07/15/2024 FINDINGS: The lungs are well inflated and clear. The heart is normal in size. No displaced fractures identified . IMPRESSION: No acute intrathoracic abnormalities.
[2024-08-17 18:36] LABS: Albumin 3.2 g/dL (3.4-5.0); Albumin/Globulin Ratio 0.8 (1.1-1.8); Anion Gap 7.2 mEq/L (5.0-15.0); Bilirubin Total 0.3 mg/dL (0.2-1.0); Globulin 3.8 g/dL (2.3-3.5); Potassium 4.2 mEq/L (3.5-5.1)
[2024-08-17 20:03] LABS: Specific Gravity 1.026 (1.005-1.030); Sqamous Epithelial <5 /HPF (None Seen); Urine Bacteria <20 /HPF (<20); Urine Bilirubin NEGATIVE (Negative); Urine Blood Negative (Negative); Urine Clarity Turbid (Clear); Urine Color Yellow (Yellow); Urine Culture Reflex Order REFLEXED; Urine Glucose NEGATIVE (Negative); Urine Ketones NEGATIVE (Negative); Urine Microscopic Reflex YN ORDER UMIC; Urine Mucus Slight /HPF (None Seen); Urine Nitrite NEGATIVE (Negative); Urine Protein TRACE (Negative); Urine RBC <5 /HPF (None Seen); Urine Urobilinogen Normal (Normal); Urine Yeast (Budding) Trace /HPF (None Seen); Urine pH 5.5 (5.0-7.0)
[2024-08-17] MEDS ORDERED: NA CHLORIDE 0.9% 500 ML ONE (21:38)
[2024-08-17] MEDS ORDERED: CEFTRIAXONE 1000 MG/VIAL ONE (21:38)
[2024-08-17 21:53] LABS: PT Prothrombin Time 15.7 SECONDS (9.4-12.5); PTT, Activated Partial Thromb 38.3 SECONDS (24.3-36.9); Protime INR 1.42
--- NOTE | 2024-08-17 23:39 | EDPHYS ---
Physician Documentation [facility] Name: Cas Denny Age: 78 yrs Sex: Male : 1945 Arrival Date: 08/17/2024 Time: 15:59 Bed 24 Private MD: ED Physician Popeye Jones HPI: 08/17 16:38 This 78 yrs old Male presents to ER via Wheelchair with complaints of Altered Mental ms3 Status, Urinary Problem. 16:38 Cas Denny is an 78-year-old male who presents to the Emergency Department with ms3 complaints of foul-smelling urine and confusion for the past week per his son. His home health nurse noted these symptoms and contacted his doctor, who advised bringing him to the hospital due to concerns of a urinary tract infection (UTI). The patient also experiences significant nausea without vomiting. He has a history of chronic back pain but reports no new pain. Recently, he has been frequently hospitalized and spent time in rehabilitation centers over the past two months. He was diagnosed with a deep vein thrombosis (DVT) in the leg which progressed to a pulmonary embolism (PE) a few weeks ago, for which he is currently on Eliquis. He was discharged from a rehab center about two weeks ago after being moved from [facility] in [place], where he was treated for the blood clot. His medical history includes high blood pressure, and he is on several medications including Metoprolol. He was given Midodrine in the rehab center for episodes of low blood pressure but has not needed it since being home.. Historical: - Allergies: 16:18 adhesive tape-silicones; ap3 - PMHx: 16:18 Back pain; CAD; chronic back pain; GERD; Hypertension; Kidney stones; Lung Cancer; ap3 Prostate Cancer; - Immunization history:: Client reports receiving the 2nd dose of the Covid vaccine, Flu vaccine is up to date. - Infectious Disease History:: Denies. - Social history:: Smoking status: unknown. ROS: 16:38 Constitutional: Negative for fever, and chills. Cardiovascular: Negative for chest ms3 pain, and palpitations. Respiratory: Negative for shortness of breath, cough, wheezing, and pleuritic chest pain, MS/Extremity: Negative for injury and deformity, Skin: Negative for injury, rash, and discoloration, 16:38 Abdomen/GI: Positive for nausea, Negative for abdominal pain, vomiting, diarrhea, ms3 Exam: 16:38 Constitutional: This is a well developed, well nourished patient who is awake, alert, ms3 and in no acute distress. Chest/axilla: Normal chest wall appearance and motion. Nontender with no deformity. Cardiovascular: Regular rate and rhythm with a normal S1 and S2. No gallops, murmurs, or rubs. Normal PMI, no JVD. No pulse deficits. Respiratory: Lungs have equal breath sounds bilaterally, clear to auscultation and percussion. No rales, rhonchi or wheezes noted. No increased work of breathing, no retractions or nasal flaring. Abdomen/GI: Soft, non-tender, with normal bowel sounds. No distension or tympany. No guarding or rebound. No evidence of tenderness throughout. Skin: Warm, dry with normal turgor. Normal color with no rashes, no lesions, and no evidence of cellulitis. 21:58 ECG was reviewed by the Attending Physician. pm1 Vital Signs: 16:16 BP 131 / 56; Pulse 83; Resp 17; Temp 98.6; Pulse Ox 89% on R/A; Weight 74.84 kg; ap3 16:20 Pulse Ox 90% ; ap3 17:28 BP 138 / 76; Pulse 72; Resp 18; Pulse Ox 100% on 2 lpm NC; db 18:00 BP 126 / 61; Pulse 70; Resp 16; Pulse Ox 100% on R/A; db 19:20 BP 132 / 64; Pulse 71; Resp 17 S; Pulse Ox 97% on 3 lpm NC; ha1 21:00 BP 136 / 60; Pulse 72; Resp 18 S; Pulse Ox 98% on 3 lpm NC; ha1 MDM: 16:14 Medical Screening Exam initiated ms3 16:38 Differential Diagnosis: electrolyte abnormality, UTI, volume depletion. ms3 17:24 Transition of care: After a detail discussion of the patient's case, care is ms3 transferred to Ran Vieyra NP. 23:29 Data reviewed: vital signs. pm1 23:37 Management of patient was discussed with the following: Hospitalist: Analisa will see the pm1 patient. 08/17 16:07 Order name: CBC with Diff; Complete Time: 18:26 ms3 12/11 16:07 Order name: CMP; Complete Time: 18:54 ms3 08/17 16:07 Order name: Urinalysis w/ reflexes; Complete Time: 20:20 ms3 08/17 19:03 Order name: Blood Culture Adult (2) pm1 08/17 19:03 Order name: Lactate w/ 2H reflex if indic.; Complete Time: 22:10 pm1 08/17 19:03 Order name: Protime (+inr); Complete Time: 22:10 pm1 08/17 19:03 Order name: Ptt, Activated; Complete Time: 22:10 pm1 08/17 20:07 Order name: Urine Culture EDMS 08/17 21:57 Order name: Glucose, Ancillary Testing; Complete Time: 22:10 EDMS 08/18 01:30 Order name: Urinalysis w/ reflexes EDMS 08/18 01:30 Order name: CBC with Automated Diff EDMS 08/18 01:30 Order name: CBC with Automated Diff EDMS 08/18 01:30 Order name: Comprehensive Metabolic Panel EDMS 08/18 01:30 Order name: Comprehensive Metabolic Panel EDMS 08/17 17:34 Order name: Chest Single View XRAY; Complete Time: 18:26 pm1 08/17 19:03 Order name: EKG; Complete Time: 19:03 pm1 08/17 17:57 Order name: Labs - recollect needed: recollect green top; Complete Time: 18:26 bd 08/17 19:03 Order name: Accucheck; Complete Time: 21:53 pm1 08/17 19:03 Order name: Cardiac monitoring; Complete Time: 21:32 pm1 08/17 19:03 Order name: EKG - Nurse/Tech; Complete Time: 21:53 pm1 08/17 19:03 Order name: IV Saline Lock - Large Bore; Complete Time: 21:31 pm1 08/17 19:03 Order name: Labs collected and sent; Complete Time: 21:31 pm1 08/17 19:03 Order name: O2 Per Protocol; Complete Time: 21:31 pm1 08/17 19:03 Order name: O2 Sat Monitoring; Complete Time: 21:31 pm1 08/17 19:03 Order name: Vital Signs; Complete Time: 21:53 pm1 EC:58 Rate is 67 beats/min. Rhythm is regular, Normal Sinus Rhythm. QRS [place] is Normal. [place] pm1 interval is normal. QRS interval is normal. QT interval is normal. No Q waves. T waves are Normal. No ST changes noted. Clinical impression: Normal Sinus rhythm, low voltage QRS, borderline ECG. Administered Medications: 21:46 Drug: Rocephin IV 1 grams IV at calculated rate once; Given slow IV push per pharmacy ha1 instructions Route: IV; Rate: calculated rate; Site: left antecubital; 23:00 Follow up: Response: No adverse reaction; IV Status: Completed infusion; IV Intake: [id number] 21:46 Drug: NS 0.9% IV 500 ml 500 ml IV at 1 calculated rate once; to be given as a bolus ha1 over 60 minutes Volume: 500 ml; Route: IV; Rate: 1 calculated rate; Site: left antecubital; 23:00 Follow up: Response: No adverse reaction; IV Status: Completed infusion; IV Intake: ha1 500ml Disposition: 08/18 22:05 Co-signature as Attending Physician, Popeye Jones MD I agree with the assessment sp4 and plan of care. I reviewed the patient's care provided by the Advanced Practice Provider and agree with the diagnosis and treatment plan. Disposition Summary: 08/17/24 23:38 Hospitalization Ordered Notes: Hospitalization Status: Inpatient Admission pm1 Provider: Krishan Hauser pmSadie Condition: Stable pm1 Problem: new pm1 Symptoms: have improved pm1 Bed/Room Type: Standard pm1 Location: Telemetry/MedSurg (observation)(08/18/24 13:31) 6 Room Assignment: [facility](08/18/24 13:31) [facility] Diagnosis - UTI/ Urinary tract infection, site not specified pm1 - Altered mental status, unspecified pm1 Forms: - Medication Reconciliation Form pm1 - SBAR form pm1 - Leadership Thank You Letter pm1 Signatures: Dispatcher [employer] EDKelli Gutierrez Patrick, NP MANAGER SUMMER pm1 Sofiya Larsen RN RN ap3 Seth Rockwell DO DO ms3 Amanda Ball RN RN ha1 Clara Rolon rv1 Emerald Cantor 6 Popeye Jones MD MD sp4 Corrections: (The following items were deleted from the chart) 08/17 16:40 16:38 Constitutional: Negative for fever, and chills. Cardiovascular: Negative for ms3 chest pain, and palpitations. Respiratory: Negative for shortness of breath, cough, wheezing, and pleuritic chest pain, Abdomen/GI: Negative for abdominal pain, nausea, vomiting, diarrhea, and constipation, MS/Extremity: Negative for injury and deformity, Skin: Negative for injury, rash, and discoloration, ms3 08/18 04:17 08/17 23:38 Telemetry/MedSurg (Inpatient) 1 1 08/18 04:17 08/17 23:38 1 1 08/18 13:31 04:17 [facility] ER HOLD rv1 bc6 13:31 04:17 ERHOLD- rv1 bc6
--- NOTE | 2024-08-17 23:39 | ER ---
Nurse's Notes [facility] Name: Cas Denny Age: 78 yrs Sex: Male : 1945 Arrival Date: 08/17/2024 Time: 15:59 Bed 24 Private MD: Diagnosis: UTI/ Urinary tract infection, site not specified;Altered mental status, unspecified Presentation: 08/17 16:16 Chief complaint: Patient's son or daughter states: the patients home nurse told him to ap3 bring the patient for concern with foul smelling urine for approx one week, and confusion. Coronavirus screen: At this time, the client does not indicate any symptoms associated with coronavirus-19. Ebola Screen: No symptoms or risks identified at this time. Initial Sepsis Screen: Does the patient meet any 2 criteria? No. Patient's initial sepsis screen is negative. Does the patient have a suspected source of infection? No. Patient's initial sepsis screen is negative. Risk Assessment: Do you want to hurt yourself or someone else? Patient reports no desire to harm self or others. Onset of symptoms is unknown. 16:16 Method Of Arrival: Wheelchair ap3 16:16 Acuity: MIRZA 2 ap3 Triage Assessment: 16:18 General: Appears in no apparent distress. Behavior is calm, cooperative. Pain: Denies ap3 pain. Neuro: Level of Consciousness is awake, alert, obeys commands, Oriented to person, place, situation, Appropriate for age. Cardiovascular: Patient's skin is warm and dry. Respiratory: Airway is patent Respiratory effort is even, unlabored, Respiratory pattern is regular, symmetrical. : Parent/caregiver report the patient having foul smelling urine. Historical: - Allergies: 16:18 adhesive tape-silicones; ap3 - PMHx: 16:18 Back pain; CAD; chronic back pain; GERD; Hypertension; Kidney stones; Lung Cancer; ap3 Prostate Cancer; - Immunization history:: Client reports receiving the 2nd dose of the Covid vaccine, Flu vaccine is up to date. - Infectious Disease History:: Denies. - Social history:: Smoking status: unknown. Screenin:20 Abuse screen: Denies threats or abuse. Nutritional screening: No deficits noted. ap3 Tuberculosis screening: No symptoms or risk factors identified. 17:45 [facility] ED Fall Risk Assessment (Adult) History of falling in the last 3 months, db including since admission Yes- single mechanical fall (1 pt) Confusion or Disorientation Yes (5 pts) Intoxicated or Sedated No (0 pts) Impaired Gait No (0 pts) Mobility Assist Device Used Yes (1 pt) Altered Elimination No (0 pt) Score/Fall Risk Level 3 or more points = High Risk Oriented to surroundings, Maintained a safe environment. Assessment: 16:25 General: patient placed in diagnostic area for oxygen access. . ap3 17:28 Reassessment: Patient appears in no apparent distress at this time. Patient and/or db family updated on plan of care and expected duration. Pain level reassessed. Patient is alert, oriented x 3, equal unlabored respirations, skin warm/dry/pink. POSSIBLE URINARY INFECTION PER HOME HEALTH NURSE. Neuro: Level of Consciousness is awake, alert, obeys commands, Oriented to person, place, time, situation. Respiratory: Airway is patent Respiratory effort is even, unlabored, Respiratory pattern is regular, symmetrical. 19:20 Reassessment: Patient and/or family updated on plan of care and expected duration. Pain ha1 level reassessed. Patient is alert, oriented x 3, equal unlabored respirations, skin warm/dry/pink. 20:20 Reassessment: Patient and/or family updated on plan of care and expected duration. Pain ha1 level reassessed. Patient is alert, oriented x 3, equal unlabored respirations, skin warm/dry/pink. 21:20 Reassessment: Patient and/or family updated on plan of care and expected duration. Pain ha1 level reassessed. Patient is alert, oriented x 3, equal unlabored respirations, skin warm/dry/pink. Vital Signs: 16:16 BP 131 / 56; Pulse 83; Resp 17; Temp 98.6; Pulse Ox 89% on R/A; Weight 74.84 kg; ap3 16:20 Pulse Ox 90% ; ap3 17:28 BP 138 / 76; Pulse 72; Resp 18; Pulse Ox 100% on 2 lpm NC; db 18:00 BP 126 / 61; Pulse 70; Resp 16; Pulse Ox 100% on R/A; db 19:20 BP 132 / 64; Pulse 71; Resp 17 S; Pulse Ox 97% on 3 lpm NC; ha1 21:00 BP 136 / 60; Pulse 72; Resp 18 S; Pulse Ox 98% on 3 lpm NC; ha1 ED Course: 16:03 Patient arrived in ED. sj2 16:06 Seth Rockwell DO is Attending Physician. ms3 16:18 Triage completed. ap3 16:20 Arm band placed on right wrist. ap3 16:50 Patient placed in an exam room, on a stretcher. ll1 16:50 Cleaned of incontinence. new brief applied, tolerated well. ll1 17:26 Ran Vieyra, THANIA is PHCP. ms3 17:45 Patient has correct armband on for positive identification. Bed in low position. Call db light in reach. Side rails up X2. Pulse ox on. NIBP on. Warm blanket given. Pillow given. 17:45 Initial lab(s) drawn, by me, sent to lab. Missed attempt(s): 22 gauge in left forearm. db Bleeding controlled, band aid applied, catheter tip intact. 17:51 Halie Page, RN is Primary Nurse. db 18:05 Missed attempt(s): 24 gauge in right hand. Bleeding controlled, band aid applied, ll1 catheter tip intact. 18:08 Inserted saline lock: 24 gauge in left hand, using aseptic technique. Flushed with 10 ll1 mL NS. 18:10 Lab(s) recollected, by me, sent to lab. db 18:14 Chest Single View XRAY In Process Unspecified. EDMS 21:24 First set of blood cultures drawn right hand\T\4 Second set of blood cultures drawn vk Left hand \T\0. 21:31 Blood Culture Adult (2) Sent. vk 21:31 Lactate w/ 2H reflex if indic. Sent. vk 21:31 Protime (+inr) Sent. vk 21:31 Ptt, Activated Sent. vk 21:32 Initial lab(s) drawn, by me, sent to lab. vk 21:55 Lactate w/ 2H reflex if indic. Sent. vk 21:55 EKG done, by ED staff. vk 23:24 Attending Physician role handed off by Seth Rockwell DO sp4 23:24 Popeye Jones MD is Attending Physician. sp4 23:38 Krishan Hauser MD is Hospitalizing Provider. pm1 12/12 12:29 Diet: Patient given a regular meal tray. ty 14:10 No provider procedures requiring assistance completed. Patient admitted, IV remains in rs5 place. Administered Medications: 08/17 21:46 Drug: Rocephin IV 1 grams IV at calculated rate once; Given slow IV push per pharmacy ha1 instructions Route: IV; Rate: calculated rate; Site: left antecubital; 23:00 Follow up: Response: No adverse reaction; IV Status: Completed infusion; IV Intake: [id number] 21:46 Drug: NS 0.9% IV 500 ml 500 ml IV at 1 calculated rate once; to be given as a bolus ha1 over 60 minutes Volume: 500 ml; Route: IV; Rate: 1 calculated rate; Site: left antecubital; 23:00 Follow up: Response: No adverse reaction; IV Status: Completed infusion; IV Intake: ha1 500ml Medication: 17:45 VIS not applicable for this client. db Intake: 23:00 IV: 500ml; Total: 500ml. ha1 23:00 IV: 50ml; Total: 550ml. ha1 Outcome: 23:38 Decision to Hospitalize by Provider. pm1 08/18 14:10 Admitted to Med/surg accompanied by tech, with chart, rs5 Condition: stable Instructed on the need for admit, Demonstrated understanding of instructions, 14:12 Patient left the ED. rs5 Signatures: Dispatcher [employer] EDMS Ran Vieyra, THANIA WELDER GAS pm1 Sofiya Larsen RN RN ap3 Gallito Chavez RN RN ll1 Seth Rockwell DO DO ms3 Amanda Ball RN RN ha1 Halie Page RN RN db Sotelo, Ricky, RN RN rs5 Popeye Jones MD MD sp4 Kruse, Vivian vk Yandell, Tylor ty Johnican, Sonceria sj2 Corrections: (The following items were deleted from the chart) 08/17 21:34 21:30 First set of blood cultures drawn right hand Second set of blood cultures drawn vk Left hand vk 08/18 05:51 05:46 Response: No adverse reaction; IV Status: Completed infusion; IV Intake: 50ml ha1 ha1 14:34 14:22 Patient left the ED. rs5 rs5
[2024-08-18] MEDS ORDERED: ACETAMINOPHEN 325 MG TABLET PO PRN (01:26)
--- NOTE | 2024-08-18 01:26 | P.HP ---
Certification for Inpatient Patient admitted to: Inpatient With expected LOS: >2 Midnights Practitioner: I am a practitioner with admitting privileges, knowledge of patient current condition, hospital course, and medical plan of care. Services: Services provided to patient in accordance with Admission requirements found in Title 42 Section 412.3 of the Code of Federal Regulations Patient History Date of Service: 08/18/24 Reason for admission: UTI History of Present Illness: 78-year-old male with history of coronary disease, hypertension, lung cancer, prostate cancer presents to ER with complaints of altered mental status. 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 They contacted his primary care and recommend him to come to the ER due to concern for urinary tract infection. The son reports that patient did have some confusion although he is close to baseline. Denies any fevers or chills, nausea or vomiting or diarrhea. Recent diagnosed with a DVT that progressed to a PE. Currently on Eliquis. Allergies adhesive tape Adverse Reaction (Mild, Verified 01/12/20 10:41) blisters Home Medications: Amlodipine Besylate [Norvasc] 10 mg PO DAILY 12/25/11 Atorvastatin Calcium [Lipitor*] 20 mg PO BEDTIME 06/24/18 Gabapentin [Neurontin] 300 mg PO DAILY 06/24/18 fentaNYL [Duragesic] 125 mcg TD Q72H 01/10/19 allopurinoL [Zyloprim*] 300 mg PO DAILY 04/05/19 Megestrol [Megace*] 40 mg PO DAILY 01/07/20 Metoprolol Succinate 25 mg PO DAILY 01/07/20 Albuterol Neb [Proventil 0.083% Neb Soln] 2.5 mg IH QIDP PRN 06/16/24 Omeprazole [Prilosec] 40 mg PO DAILY 06/16/24 Oxycodone HCl [Oxycontin] 15 mg PO TID 06/16/24 PARoxetine HCL [Paxil*] 10 mg PO DAILY 06/16/24 Promethazine Tab [Phenergan*] 25 mg PO BIDP PRN 06/16/24 Vibegron [Gemtesa] 75 mg PO DAILY 06/16/24 Albuterol Neb [Proventil 0.083% Neb Soln] 2.5 mg NEB [id number] amp 06/21/24 Amlodipine [Norvasc*] 10 mg PO DAILY@1200 #30 tab 06/21/24 Amox/Clavulanate [Augmentin 875-125 Tab*] 875 mg PO BID #10 tab 06/21/24 Atorvastatin Calcium [Lipitor*] 20 mg PO BEDTIME #30 tab 06/21/24 Colchicine [Colcrys *] 0.6 mg PO BID #10 tab 06/21/24 Enoxaparin Sodium [Lovenox 40 MG INJ*] 40 mg SQ DAILY syr 06/21/24 Ipratropium Neb [Atrovent*] 0.5 mg NEB [id number] amp 06/21/24 Lactulose [Cephulac*] 30 ml PO DAILY 06/21/24 Megestrol [Megace*] 40 mg PO DAILY tab 06/21/24 Metoprolol Succinate [Toprol Xl*] 25 mg PO [id number] tab 06/21/24 Oxycodone HCl [Oxyir (Oxycodone HCl Imr)*] 10 mg PO Q8H tab 06/21/24 PARoxetine HCL [Paxil*] 10 mg PO DAILY tab 06/21/24 Sucralfate [Carafate*] 1 gm PO QID tab 06/21/24 allopurinoL [Zyloprim*] 300 mg PO BEDTIME #30 tab 06/21/24 predniSONE [Deltasone] 20 mg PO DAILY #5 tab 06/21/24 - Past Medical/Surgical History Diabetic: No -: chronic back and neck pain -: hypertension -: prostate cancer -: bad esophagus -: GERD -: CAD -: kidney stones -: COPD -: 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 -: neck surgery -: back surgery x2 -: appendectomy -: hernia repair -: cholecystectomy -: prostatectomy -: bladder dilation -: DVR stimulator Psychosocial/ Personal History: Lives at home with his Son - Family History Mother -: Heart disease Father -: Cancer - Social History Alcohol use: No CD- Drugs: No Caffeine use: No Review of Systems 10-point ROS is otherwise unremarkable Genitourinary: Other Physical Examination - Physical Exam General: In no apparent distress, Oriented x3 HEENT: Atraumatic, Normocephalic Respiratory: Clear to auscultation bilaterally, Normal air movement Cardiovascular: Regular rate/rhythm, Normal S1 S2 Gastrointestinal: Soft and benign, Non-distended Musculoskeletal: No swelling, No contractures Integumentary: No rashes - Studies Laboratory Data (last 24 hrs) 08/17/24 08/17/24 08/17/24 21:26 18:12 17:45 WBC 12.90 H Hgb 11.8 L Hct 36.4 L Plt Count 418 H PT 15.7 H INR 1.42 APTT 38.3 H Sodium 139 Potassium 4.2 BUN 32 H Creatinine 1.02 Glucose 100 Total Bilirubin 0.3 AST 20 ALT 25 Alkaline Phosphatase 89 Assessment and Plan - Problems (Diagnosis) (1) UTI (urinary tract infection) Current Visit: Yes Status: Acute (2) AMS (altered mental status) Current Visit: Yes Status: Acute (3) DVT (deep venous thrombosis) Current Visit: Yes Status: Acute - Plan Urinary tract infection Altered mental status --improved --followup cultures --continue IVF, Rocephin History of lung cancer --on treatment History of DVT --on eliquis DVT:eliqus - Advance Directives Does patient have a Living Will: No Does patient have a Durable POA for Healthcare: No
[2024-08-18] MEDS: NA CHLORIDE 0.9% 1,000 ML IV SCH (02:00)
[2024-08-18] MEDS ORDERED: NA CHLORIDE 0.9% 1,000 ML ONE (03:27)
[2024-08-18 05:24] VITALS: BMI 25.0
[2024-08-18] MEDS ORDERED: CEFTRIAXONE 1000 MG/VIAL ONE (07:46)
[2024-08-18] MEDS ORDERED: NA CHLORIDE 0.9% 50 ML ONE (07:46)
--- NOTE | 2024-08-18 07:46 | P.PN ---
Subjective Date of Service: 08/19/24 Chief Complaint: UTI Admitted with altered mental status, confused, treated for UTI, history of chronic pain, continue as needed pain medication <Ramya Calvo - Last Filed: 08/19/24 20:07> Date of Service: 08/18/24 <Ady Amor - Last Filed: 08/22/24 08:40> Review of Systems 10-point ROS is otherwise unremarkable <Ramya Calvo - Last Filed: 08/19/24 20:07> Physical Examination - Vital Signs Temperature: 98 F Blood Pressure: 136/60 Pulse: 63 Respirations: 18 Pulse Ox (%): 97 - Physical Exam General: Alert, In no apparent distress, Oriented x2 HEENT: Atraumatic, Normocephalic Neck: 2+ carotid pulse no bruit, JVD not distended Respiratory: Clear to auscultation bilaterally, Normal air movement Cardiovascular: Normal pulses, Regular rate/rhythm, Normal S1 S2 Gastrointestinal: Normal bowel sounds, Soft and benign Musculoskeletal: No clubbing, No swelling Integumentary: No rashes, No breakdown Neurological: Normal speech, Other (Confused) - Studies Laboratory Data (last 24 hrs) 08/17/24 08/17/24 08/17/24 21:26 18:12 17:45 WBC 12.90 H Hgb 11.8 L Hct 36.4 L Plt Count 418 H PT 15.7 H INR 1.42 APTT 38.3 H Sodium 139 Potassium 4.2 BUN 32 H Creatinine 1.02 Glucose 100 Total Bilirubin 0.3 AST 20 ALT 25 Alkaline Phosphatase 89 <Ramya Calvo - Last Filed: 08/19/24 20:07> Assessment And Plan - Current Problems (Diagnosis) (1) Metabolic encephalopathy Current Visit: Yes Status: Acute (2) Acute cystitis with hematuria Current Visit: Yes Status: Acute (3) Chronic pain Current Visit: Yes Status: Acute Qualifiers: 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 Qualified Code(s): G89.3 - Neoplasm related pain (acute) (chronic) (4) COPD (chronic obstructive pulmonary disease) Current Visit: Yes Status: Acute Qualifiers: Chronic bronchitis type: unspecified - Plan Admit to [facility] Fall precautions, Metabolic encephalopathy secondary to UTI Trend urine cultures, IV fluids, IV antibiotics, Resume home medications for COPD, hypertension, hyperlipidemia, O2 2 L keep sats greater than 92% PT eval for fall precautions, DME evaluate History of a DVT resume home anticoagulation Full code DVT Eliquis Diet regular Disposition pending care home facility for authorization Discharge Plan: Other (long-term facility) - Code Status/Comfort Care Code Status: Full Code Critical Care: No Time Spent Managing PTS Care (In Minutes): 35 <Ramya Calvo - Last Filed: 08/19/24 20:07> Date of Service: 08/18/24 Patient was seen and examined. Events of the last 24 hours have been noted. Spoke with with SB regarding patient's clinical picture after evaluating and examining the patient independently. I performed a substantial part of the MDM during this patient's care today. I personally made or approved the documented management plan and acknowledge its risk of complications. I agree with the findings and documentation provided in the SB's notes. Patient's clinical symptoms are somewhat better. Patient is more awake and alert. Concern for polymyalgia rheumatica. Inflammatory markers have been elevated. Patient responds really well as steroids. Will put him on a tapering dose of prednisone. Outpatient follow-up with thinner sprayer. <Ady Amor - Last Filed: 08/22/24 08:40>
[2024-08-18] MEDS: CEFTRIAXONE 1,000 MG in NA CHLORIDE 0.9% 50 ML IVPB SCH (08:03)
[2024-08-18] MEDS: ALBUTEROL 2.5 MG/3 ML NEB SOL NEB SCH (14:48)
[2024-08-18] MEDS: IPRATROPIUM BROM 0.5MG/2.5ML NEB SCH ×2 (14:48→19:38)
[2024-08-18] MEDS: APIXABAN 5 MG TABLET PO SCH (20:44)
[2024-08-18] MEDS: MEGESTROL 40 MG TAB PO SCH (20:45)
[2024-08-18] MEDS: OXYCODONE HCL 5 MG TAB PO PRN (20:45)
[2024-08-19] MEDS: ALBUTEROL 2.5 MG/3 ML NEB SOL NEB SCH (01:55)
[2024-08-19 04:34] LABS: Absolute Basophils 0.1 K/uL (0-0.5); Absolute Eosinophils 0.2 K/uL (0-0.5); Hemoglobin 10.9 g/dL (13.6-17.9)
[2024-08-19 04:43] LABS: Absolute Lymphocytes (CBC) 2.3 K/uL (0.7-4.9); Absolute Monocytes 1.1 K/uL (0.1-1.3); Absolute Neutrophil 8.2 K/uL (1.8-8.0); Basophils % 0.6 % (0-1.3); Eosinophils % 1.4 % (0-4.4); Hematocrit 33.5 % (39.6-49.0); Lymphocytes % 19.3 % (15.3-44.8); MCH 28.7 pg (27.0-35.0); MCHC 32.7 g/dL (32.0-36.0); MCV 87.8 fL (80-100); MPV 8.4 fL (7.6-11.3); Monocytes % 9.4 % (3.3-12.3); Neutrophils % 69.3 % (41.7-73.7); Nucleated Red Blood Cells % 0.1 % (0-0); Platelets 364 thou/uL (152-406); RBC Red Blood Cell Count 3.81 M/uL (4.33-5.43); Red Cell Distribution Width 16.3 % (12.1-15.2)
[2024-08-19 04:51] LABS: Albumin 2.8 g/dL (3.4-5.0); Albumin/Globulin Ratio 0.8 (1.1-1.8); Anion Gap 4.8 mEq/L (5.0-15.0); Bilirubin Total 0.3 mg/dL (0.2-1.0); Globulin 3.5 g/dL (2.3-3.5); Potassium 3.8 mEq/L (3.5-5.1); Protein, Total 6.3 g/dL (6.4-8.2)
[2024-08-19] MEDS: POTASSIUM CL SA 10 MEQ TAB PO ONE (09:31)
[2024-08-19] MEDS: allopurinoL 300 MG TAB PO SCH (09:31)
[2024-08-19] MEDS: PARoxetine HCL 10 MG TAB PO SCH (09:31)
[2024-08-19] MEDS: ONDANSETRON 4 MG/2 ML VIAL IV PRN (14:10)
[2024-08-19] MEDS: dexAMETHasone 4 MG/ML VIAL IV ONE (14:35)
[2024-08-19 15:07] LABS: C-Reactive Protein 29.3 mg/L (<3.00); Thyroid Stimulating Hormone 1.62 uIU/mL (0.358-3.740)
--- NOTE | 2024-08-19 15:49 | EKG ---
Test Date: 2024-08-17 Test Time: 21:51:32 Transportation Sales Consultant: CASTILLO MEASUREMENT RESULTS: Intervals: Rate: 67 LA: 144 QRSD: 70 QT: 422 QTc: 445 Soso: P: 4 LA: 144 QRS: -6 T: 34 INTERPRETIVE STATEMENTS: Normal sinus rhythm Low voltage QRS Borderline ECG Compared to ECG 07/15/2024 11:25:17 No significant changes Electronically Signed On 08-19-24 15:46:48 DESKTOP PUBLISHING OPERATOR by Heber Wooten
[2024-08-19] MEDS: dexAMETHasone 4 MG/ML VIAL IV SCH (17:00)
[2024-08-19] MEDS: HYDROMORPHONE HCL 1 MG/ML INJ IV ONE (17:49)
--- NOTE | 2024-08-19 20:13 | P.PN ---
Date of Service: 08/19/24 Subjective Chief Complaint: UTI Family at bedside, intermittent confusion, history of chronic pain, requesting his pain medication Fall precautions for confusion Review of Systems 10-point ROS is otherwise unremarkable Physical Examination - Vital Signs Reviewed - Physical Exam General: Alert, In no apparent distress, Oriented x2, no acute distress noted Respiratory: Clear to auscultation bilaterally, Normal air movement Cardiovascular: Normal pulses, Regular rate/rhythm, Normal S1 S2 Gastrointestinal: Normal bowel sounds, Soft and benign Musculoskeletal: No clubbing, No swelling Integumentary: No rashes, No breakdown Neurological: Normal speech, Other (Confused) Assessment And Plan - Current Problems (Diagnosis) (1) Metabolic encephalopathy Current Visit: Yes Status: Acute (2) Acute cystitis with hematuria Current Visit: Yes Status: Acute (3) Chronic pain Current Visit: Yes Status: Acute Qualifiers: 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 Qualified Code(s): G89.3 - Neoplasm related pain (acute) (chronic) (4) COPD (chronic obstructive pulmonary disease) Current Visit: Yes Status: Acute Qualifiers: Chronic bronchitis type: unspecified - Plan Admit to [facility] Fall precautions, Metabolic encephalopathy secondary to UTI Trend urine cultures, IV fluids, IV antibiotics, Resume home medications for COPD, hypertension, hyperlipidemia, O2 2 L keep sats greater than 92% PT eval for fall precautions, DME evaluate History of a DVT resume home anticoagulation Chest x-ray no acute abnormality Blood cultures no growth, urine culture 2+ gram-negative rods Full code DVT Eliquis Diet regular Disposition pending residential facility for authorization Discharge Plan: Other ([facility] facility) - Code Status/Comfort Care Code Status: Full Code Critical Care: No Time Spent Managing PTS Care (In Minutes): 25 <Ramya Calvo - Last Filed: 08/19/24 20:14> Patient was seen and examined. Events of the last 24 hours have been noted. Spoke with with SB regarding patient's clinical picture after evaluating and examining the patient independently. I performed a substantial part of the MDM during this patient's care today. I personally made or approved the documented management plan and acknowledge its risk of complications. I agree with the findings and documentation provided in the SB's notes. Patient is doing a little bit better today. Family requested removed resume his oxycodone which we have done. We will continue monitoring his neurologic status closely. Patient with multiple narcotics on board including oxycodone and IV push pain medication. Patient will need to follow with pain specialist at discharge. Continue with IV antibiotics and arranging for physical therapy. <Ady Amor - Last Filed: 08/22/24 08:22>
[2024-08-19] MEDS: ENSURE ENLIVE 237 ML CAN PO SCH (20:45)
[2024-08-20 05:03] LABS: Anion Gap 7.2 mEq/L (5.0-15.0); Potassium 4.2 mEq/L (3.5-5.1)
--- NOTE | 2024-08-20 07:02 | P.PN ---
Date of Service: 08/20/24 Subjective Chief Complaint: UTI Patient was diaphoretic, worsening confusion this evening, CT of the head was negative, Son reported placing fentanyl patch on patient without knowledge of physician or nursing staff. Dr. Pham notified Review of Systems 10-point ROS is otherwise unremarkable Physical Examination - Vital Signs Reviewed - Physical Exam General: Alert, In no apparent distress, Oriented x2, no acute distress noted Respiratory: Clear to auscultation bilaterally, equal unlabored Cardiovascular: Normal pulses, Regular rate/rhythm, Normal S1 S2 Gastrointestinal: Normal bowel sounds, Soft and benign Musculoskeletal: No clubbing, No swelling, moderate generalized weak Integumentary: No rashes, No breakdown Neurological: Normal speech, Other (Confused) Assessment And Plan - Current Problems (Diagnosis) (1) Metabolic encephalopathy Current Visit: Yes Status: Acute (2) Acute cystitis with hematuria Current Visit: Yes Status: Acute (3)ERLIN with CKD Current Visit: Yes Status: Acute (4) Chronic pain, suspected polymyalgia rheumatica Current Visit: Yes Status: Acute Qualifiers: 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 Qualified Code(s): G89.3 - Neoplasm related pain (acute) (chronic) (5) COPD (chronic obstructive pulmonary disease) Current Visit: no Status: Chronic Qualifiers: Chronic bronchitis type: unspecified - Plan Admit to [facility] Fall precautions, Metabolic encephalopathy secondary to UTI IV fluids, IV antibiotics, Elevated CRP, trend CRP, treated with corticosteroids Resume home medications for COPD, hypertension, hyperlipidemia, O2 2 L keep sats greater than 92%, home O2 dependent currently on 3 L PT eval for fall precautions, DME evaluate History of a DVT resume home anticoagulation Chest x-ray no acute abnormality Blood cultures no growth, urine culture 2+ gram-negative rods CT of the head negative for acute Full code DVT Eliquis Diet regular Disposition pending custodial facility for authorization Discharge Plan: Other ([facility] facility) - Code Status/Comfort Care Code Status: Full Code Critical Care: No Time Spent Managing PTS Care (In Minutes): 35 <Ramya Calvo - Last Filed: 08/20/24 20:58> Patient was seen and examined. Events of the last 24 hours have been noted. Spoke with with SB regarding patient's clinical picture after evaluating and examining the patient independently. I performed a substantial part of the MDM during this patient's care today. I personally made or approved the documented management plan and acknowledge its risk of complications. I agree with the findings and documentation provided in the SB's notes. Patient became very lethargic this afternoon. CT of the head was done. Patient was found have fentanyl 125 mcg patches apply to him. He had 100 mcg transde rmal patch along with a 25 mcg transdermal patch. Patient appears to be polypharmacy. Will adjust his pain medications was fentanyl IV push as needed and will decrease the oxycodone to hydrocodone at this time. Continuing to encourage him to work with physical therapy as well. <Ady Amor - Last Filed: 08/22/24 08:21>
[2024-08-20] MEDS: GABAPENTIN 300 MG CAP PO SCH (13:44)
[2024-08-20] MEDS: OXYCODONE HCL 15 MG PO SCH (13:51)
[2024-08-20] MEDS ORDERED: OXYCODONE HCL 15 MG PO PRN (14:06)
[2024-08-20] MEDS: NA CHLORIDE 0.9% 500 ML IV ONE (18:37)
[2024-08-20] MEDS: ASPIRIN EC 81 MG TAB PO ONE (18:39)
--- NOTE | 2024-08-20 19:08 | RAD REPORT ---
EXAM: CT brain without contrast HISTORY: AMS COMPARISON: 07/15/2024 TECHNIQUE: Multiple contiguous axial images were obtained and a CT of the brain without contrast. Sag ittal and coronal reformats were performed. One or more of the following dose reduction techniques were used: Automated exposure control, adjust ment of the mA and/or kV according to patient size, and/or iterative reconstruction. FINDINGS: No evidence of hydrocephalus, intracranial hemorrhage, or extra-axial fluid collection. The brain is normal in morphology. No evidence of midline shift or areas of brain edema. The calvarium is intact. The visualized paranasal sinuses and mastoid air cells are essentially clear . IMPRESSION: No evidence of acute intracranial abnormality.
[2024-08-20 19:27] LABS: Barbiturates NEGATIVE (NEGATIVE); Benzodiazepines NEGATIVE (NEGATIVE); Cocaine NEGATIVE (NEGATIVE); METHAMPHETAM NEGATIVE (NEGATIVE); Methadone NEGATIVE (NEGATIVE); Opiates NEGATIVE (NEGATIVE); Phencyclidine NEGATIVE (NEGATIVE); THC Cannibis NEGATIVE (NEGATIVE)
[2024-08-20] MEDS: HYDROCODONE/APAP 10/325 TAB PO PRN (21:23)
[2024-08-20] MEDS: ASPIRIN 81 MG CHEWABLE TABLET ONE (21:38)
[2024-08-20] MEDS: FENTANYL CITR 100 MCG/2 ML IV PRN (22:28)
[2024-08-21 04:28] LABS: Absolute Basophils 0.1 K/uL (0-0.5); Absolute Monocytes 0.4 K/uL (0.1-1.3); Absolute Neutrophil 11.3 K/uL (1.8-8.0); Basophils % 0.4 % (0-1.3); Eosinophils % 0.1 % (0-4.4); Hemoglobin 10.8 g/dL (13.6-17.9); Lymphocytes % 7.7 % (15.3-44.8); MCH 28.5 pg (27.0-35.0); MCHC 32.6 g/dL (32.0-36.0); MCV 87.2 fL (80-100); MPV 8.6 fL (7.6-11.3); Monocytes % 3.2 % (3.3-12.3); Neutrophils % 88.6 % (41.7-73.7); Nucleated Red Blood Cells % 0.2 % (0-0); Platelets 357 thou/uL (152-406); RBC Red Blood Cell Count 3.79 M/uL (4.33-5.43); Red Cell Distribution Width 16.4 % (12.1-15.2)
[2024-08-21 04:37] LABS: Anion Gap 6.9 mEq/L (5.0-15.0); C-Reactive Protein 16.3 mg/L (<3.00); Potassium 4.9 mEq/L (3.5-5.1)
[2024-08-21 05:49] LABS: Anisocytosis SLIGHT; Blood Morphology Comment NOTED (NOT SEEN); Ovalocytes SLIGHT; Platelet Estimate ADEQ; Poikilocytosis SLIGHT; Polychromasia SLIGHT; White Blood Cell Scan OK (OK)
--- NOTE | 2024-08-21 07:47 | P.PN ---
Date of Service: 08/21/24 Subjective Chief Complaint: UTI Started on meropenem, ESBL of the urine, requesting home medications be restarted, he requested new physician, Review of Systems 10-point ROS is otherwise unremarkable Physical Examination - Vital Signs Reviewed - Physical Exam General: Alert, In no apparent distress, Oriented x2, no acute distress noted Respiratory: Clear to auscultation bilaterally, equal unlabored Cardiovascular: Normal pulses, Regular rate/rhythm, Normal S1 S2 Gastrointestinal: Normal bowel sounds, Soft and benign Musculoskeletal: No clubbing, No swelling, moderate generalized weak Integumentary: No rashes, No breakdown Neurological: Normal speech, Other (Confused) Assessment And Plan - Current Problems (Diagnosis) (1) Metabolic encephalopathy Current Visit: Yes Status: Acute (2) Acute cystitis with hematuria Current Visit: Yes Status: Acute (3)ERLIN with CKD Current Visit: Yes Status: Acute (4) Chronic pain, suspected polymyalgia rheumatica Current Visit: Yes Status: Acute Qualifiers: Chronic pain type: d Qualified Code(s): G89.3 - Neoplasm related pain (acute) (chronic) (5) COPD (chronic obstructive pulmonary disease) Current Visit: no Status: Chronic Qualifiers: Chronic bronchitis type: unspecified - Plan Admit to [facility] Metabolic encephalopathy secondary to UTI urine culture positive for ESBL, Klebsiella pneumonia, Proteus Mirailis started on meropenem Fall precautions, IV fluids, IV antibiotics, Elevated CRP, trend CRP, treated with corticosteroids Resume home medications for COPD, hypertension, hyperlipidemia, O2 2 L keep sats greater than 92%, home O2 dependent currently on 3 L PT eval for fall precautions, DME evaluate History of a DVT resume home anticoagulation Chest x-ray no acute abnormality Blood cultures no growth, urine culture 2+ gram-negative rods CT of the head negative for acute Full code DVT Eliquis Diet regular Disposition pending group home facility for authorization Discharge Plan: Other (nursing home facility) - Code Status/Comfort Care Code Status: Full Code Critical Care: No Time Spent Managing PTS Care (In Minutes): 35 <Ramya Calvo - Last Filed: 08/21/24 15:28> Patient seen and examined. Diagnosis: Acute metabolic encephalopathy Acute cystitis without hematuria Dementia with behavioral abnormality. Chronic back pain. Plan: Continue IV meropenem for ESBL UTI. Patient is awake and alert and demanding his home pain medications. He is on fentanyl 125 mcg every 72 hours. Patient states he has been on this medication for about 7 years. He has been on oxycodone 15 mg every 8 hours and gabapentin for several years. Home doses of fentanyl patch, and oxycodone resumed. I suspect patient has developed tolerance and he is high risk for opioid-induced toxicity. These issues has been communicated to the patient and his son. Son also report patient has been sundowning. His agitation and belligerence at night likely related to UTI in the context of dementia. Patient may need Haldol as needed for agitation. He follows with neurology Dr. Sandoval and may need comprehensive evaluation for dementia as outpatient. Neurochecks. Monitor response. Continue PT <ap kelly - Last Filed: 08/21/24 18:14>
[2024-08-21] MEDS: dexAMETHasone 4 MG/ML VIAL IV SCH (09:00)
[2024-08-21] MEDS: ASPIRIN EC 81 MG TAB PO SCH (09:00)
[2024-08-21] MEDS: Meropenem 1,000 MG in NA CHLORIDE 0.9% 100 ML IV SCH (09:11)
[2024-08-21] MEDS: OXYCODONE HCL 5 MG TAB PO SCH (15:08)
[2024-08-22 05:18] LABS: Absolute Basophils 0.1 K/uL (0-0.5); Absolute Lymphocytes (CBC) 1.8 K/uL (0.7-4.9); Absolute Monocytes 0.9 K/uL (0.1-1.3); Absolute Neutrophil 7.3 K/uL (1.8-8.0); Basophils % 0.6 % (0-1.3); Hematocrit 32.6 % (39.6-49.0); Hemoglobin 10.3 g/dL (13.6-17.9); MCHC 31.6 g/dL (32.0-36.0); MCV 88.5 fL (80-100); MPV 8.9 fL (7.6-11.3); Monocytes % 8.9 % (3.3-12.3); Neutrophils % 72.5 % (41.7-73.7); Platelets 354 thou/uL (152-406); RBC Red Blood Cell Count 3.68 M/uL (4.33-5.43); Red Cell Distribution Width 16.4 % (12.1-15.2)
[2024-08-22 05:32] LABS: Anion Gap 10.2 mEq/L (5.0-15.0); C-Reactive Protein 5.2 mg/L (<3.00); Potassium 4.2 mEq/L (3.5-5.1)
[2024-08-22] MEDS: OXYCODONE HCL 5 MG TAB PO PRN (08:40)
--- NOTE | 2024-08-22 15:23 | P.PN ---
Subjective Date of Service: 08/22/24 Chief Complaint: UTI Patient states he feels much better today. No issues overnight. No reported agitation. Patient stated his pain is well-controlled on his home pain medications. He is tolerating diet. Physical Examination - Vital Signs Temperature: 98.0 F Blood Pressure: 148/64 Pulse: 84 Respirations: 16 Pulse Ox (%): 96 Assessment And Plan - Plan Physical examination General: Alert and oriented x3, NAD, HEENT: Conjunctiva not pale, anicteric sclera Neck: Supple, no elevated JVD Heart: Heart sounds 1 and 2 normal, regular rhythm, normal rate, no pedal edema Lungs: Clear to auscultation bilaterally, adequate breath sounds bilaterally, no rhonchi or crackles. Abdomen: Soft, nondistended, nontender, normal bowel sounds. Extremities: No tenderness, no deformity Skin: Normal skin turgor, no rash, no nodules or ulcers. Neuro: Bilateral lower extremity weakness-chronic, normal speech. Psychiatry: Normal mood, no agitation. Assessment and plan Acute metabolic encephalopathy ESBL Proteus UTI Chronic back pain COPD without acute exacerbation History of lung cancer History of prostate cancer Wheelchair-bound status History of DVT and pulmonary embolism. Chronic respiratory failure with hypoxia Plan: Acute metabolic encephalopathy ESBL Proteus and Klebsiella pneumonia UTI Polypharmacy AMS likely secondary to a combination of polypharmacy and UTI. Altered mental status resolved. Patient demanded all his pain medications-Fentanyl 125 mcg every 72 hours, oxycodone 15 mg every 8 hours and gabapentin 300 mg 3 times daily, to be resumed. Pain medications resumed, patient remained alert and oriented. Son reports some sundowning. Patient has not been officially diagnosed with dementia, however pattern of agitation suggest dementia with behavioral abnormality. Neurochecks. Continue IV Merrem. Patient slated for at least 7 days of IV meropenem. COPD History of lung cancer Chronic respiratory failure with hypoxia Patient respiratory status is stable. He is stable on home oxygen 2 L by nasal cannula. Chronic back pain Generalized weakness Pain medications resumed Continue PT Patient planned for skilled rehab placement. History of DVT and pulm embolism Continue home dose Eliquis. High fall risk. Fall precautions. DVT prophylaxis: Eliquis Advanced directive: Full code
[2024-08-23 06:07] LABS: Absolute Eosinophils 0.1 K/uL (0-0.5); Absolute Lymphocytes (CBC) 2.8 K/uL (0.7-4.9); Absolute Neutrophil 5.9 K/uL (1.8-8.0); Basophils % 0.2 % (0-1.3); Eosinophils % 0.9 % (0-4.4); Hematocrit 31.4 % (39.6-49.0); Hemoglobin 10.4 g/dL (13.6-17.9); Lymphocytes % 28.6 % (15.3-44.8); MCH 28.9 pg (27.0-35.0); MCHC 33.1 g/dL (32.0-36.0); MCV 87.4 fL (80-100); MPV 8.1 fL (7.6-11.3); Monocytes % 10.5 % (3.3-12.3); Neutrophils % 59.8 % (41.7-73.7); Platelets 373 thou/uL (152-406); RBC Red Blood Cell Count 3.59 M/uL (4.33-5.43); Red Cell Distribution Width 16.5 % (12.1-15.2)
[2024-08-23 06:21] LABS: BUN Blood Urea Nitrogen 21 mg/dL (7-18); Bicarbonate 28 mEq/L (21-32); Glomerular Filtration Rate 88 ml/min (=/>90); Glucose Level 133 mg/dL (74-106); Sodium Level 140 mEq/L (136-145)
[2024-08-23 06:22] LABS: C-Reactive Protein < 2.90 mg/L (<3.00)
--- NOTE | 2024-08-23 11:54 | P.PN ---
Date of Service: 08/23/24 Subjective: patient and son seen at bedside improving, nothing worsening ambulated with assistance. mentation improving, pain controlled back on home meds ROS: 10 point ROS as noted above, otherwise negative Physical Exam: GEN: Alert, NAD CV: Regular rate and rhythm, no edema Pulm: Nonlabored respirations on 2L NC, clear bilaterally ABD: soft, nontender, nondistended Integumentary: No rashes Neuro: Normal speech, Bilateral lower extremity weakness-chronic Problem List: Acute metabolic encephalopathy secondary to UTI - Proteus Mirabilis ESBL Polypharmacy COPD, chronic History of lung/prostate cancer Chronic respiratory failure with hypoxia; on Home O2 Chronic back pain Generalized weakness Wheelchair-bound status Subacute DVT/PE (07/15/24) Acute metabolic encephalopathy secondary to UTI - Proteus Mirabilis ESBL Polypharmacy AMS likely secondary to a combination of polypharmacy and UTI. AMS resolved; ~baseline continue chronic home pain medications. Patient remained alert and oriented. Son reports some sundowning. Patient has not been officially diagnosed with dementia, however pattern of agitation suggest dementia with behavioral abnormality. urine cx (08/17): Proteus Mirabilis ESBL, Klebsiella Pneumoniae. Blood cx (08/17): No growth. Continue IV Merrem (08/21-) Patient is to complete at least 7 days of Merrem afebrile, no leukocytosis COPD, chronic History of lung/prostate cancer Chronic respiratory failure with hypoxia; on Home O2 Patient respiratory status is stable. He is stable on home oxygen 2 L by nasal cannula. Chronic back pain Generalized weakness Wheelchair-bound status Pain medications resumed Continue PT planning for [facility] Subacute DVT/PE (07/15/24) venous u/s (07/15): acute DVT right posterior tibial vein CT chest (07/15): Right PE with right heart strain Was transferred to [facility] 07/15. Echo showed preserved biventricular function with some RV dilation. No Thrombectomy / intervention warranted. Treated with heparin drip, eliquis at the time. Continue home dose Eliquis. Fall precautions. VTE: home eliquis Code: Full Dispo: [facility]; anticipate dc tomorrow Time Spent Managing Pts Care (In Minutes): 55
[2024-08-24 04:51] LABS: Hematocrit 31.7 % (39.6-49.0); MCHC 31.5 g/dL (32.0-36.0); Platelets 335 thou/uL (152-406); RBC Red Blood Cell Count 3.56 M/uL (4.33-5.43); Red Cell Distribution Width 16.4 % (12.1-15.2)
[2024-08-24 05:16] LABS: Anion Gap 8.2 mEq/L (5.0-15.0); Magnesium 2.3 mg/dL (1.6-2.4); Potassium 4.2 mEq/L (3.5-5.1)
[2024-08-24] MEDS ORDERED: HOME MED 1 EA UNK (Vibegron [Gemtesa] 75 MG Tablet) PO SCH (09:00)
[2024-08-24] MEDS: FENTANYL 100 MCG/PATCH TD SCH (11:37)
[2024-08-24] MEDS: FENTANYL 25 MCG/PATCH TD SCH (11:37)
--- NOTE | 2024-08-24 12:21 | P.PN ---
Date of Service: 08/24/24 Subjective: no acute events overnight doesn't feel worse afebrile, but with some temps in 99s and mild leukocytosis ROS: 10 point ROS as noted above, otherwise negative Physical Exam: GEN: Alert, NAD CV: Regular rate and rhythm, no edema Pulm: Nonlabored respirations on 2L NC, clear bilaterally ABD: soft, nontender, nondistended Integumentary: No rashes Neuro: Normal speech, Bilateral lower extremity weakness-chronic Problem List: Acute metabolic encephalopathy secondary to UTI - Proteus Mirabilis ESBL Polypharmacy COPD, chronic History of lung/prostate cancer Chronic respiratory failure with hypoxia; on Home O2 Chronic back pain Generalized weakness Wheelchair-bound status Moderate Protein-Calorie Malnutrition related to chronic illness Subacute DVT/PE (07/15/24) Acute metabolic encephalopathy secondary to UTI - Proteus Mirabilis ESBL Polypharmacy AMS likely secondary to a combination of polypharmacy and UTI. AMS resolved; ~baseline continue chronic home pain medications. Patient remained alert and oriented. Son reports some sundowning. Patient has not been officially diagnosed with dementia, however pattern of agitation suggest dementia with behavioral abnormality. urine cx (08/17): Proteus Mirabilis ESBL, Klebsiella Pneumoniae. Blood cx (08/17): No growth. Continue IV Merrem (08/21-) Patient is to complete at least 7 days of Merrem afebrile, but temp in 99s overnight, slightly increased and wbc increased; continue to monitor no obvious signs of worsening / new infxn COPD, chronic History of lung/prostate cancer Chronic respiratory failure with hypoxia; on Home O2 Patient respiratory status is stable. He is stable on home oxygen 2 L by nasal cannula. Chronic back pain Generalized weakness Wheelchair-bound status Moderate Protein-Calorie Malnutrition related to chronic illness Pain medications resumed Continue PT planning for [facility] Subacute DVT/PE (07/15/24) venous u/s (07/15): acute DVT right posterior tibial vein CT chest (07/15): Right PE with right heart strain Was transferred to [facility] 07/15. Echo showed preserved biventricular function with some RV dilation. No Thrombectomy / intervention warranted. Treated with heparin drip, eliquis at the time. Continue home dose Eliquis. Fall precautions. VTE: home eliquis Code: Full Dispo: [facility]; anticipate dc tomorrow pending improvement of leukocytosis and remains afebrile Time Spent Managing Pts Care (In Minutes): 55
[2024-08-24] MEDS: OXYBUTYNIN ER 5 MG TAB PO SCH (15:45)
[2024-08-24 18:36] LABS: Anti-Nuclear Antibody Screen Negative (Negative)
[2024-08-25 04:34] LABS: Absolute Basophils 0.1 K/uL (0-0.5); Absolute Eosinophils 0.7 K/uL (0-0.5); Absolute Lymphocytes (CBC) 2.7 K/uL (0.7-4.9); Absolute Monocytes 1.1 K/uL (0.1-1.3); Absolute Neutrophil 7.5 K/uL (1.8-8.0); Basophils % 0.7 % (0-1.3); Eosinophils % 5.6 % (0-4.4); Hematocrit 33.4 % (39.6-49.0); Hemoglobin 10.5 g/dL (13.6-17.9); Lymphocytes % 22.1 % (15.3-44.8); MCH 27.8 pg (27.0-35.0); MCHC 31.3 g/dL (32.0-36.0); MCV 88.8 fL (80-100); MPV 8.1 fL (7.6-11.3); Neutrophils % 62.6 % (41.7-73.7); Platelets 345 thou/uL (152-406); RBC Red Blood Cell Count 3.76 M/uL (4.33-5.43); Red Cell Distribution Width 16.6 % (12.1-15.2)
[2024-08-25 05:02] LABS: Anion Gap 6.4 mEq/L (5.0-15.0); Magnesium 2.4 mg/dL (1.6-2.4); Potassium 4.4 mEq/L (3.5-5.1)
[2024-08-25] MEDS: METOPROLOL XL 50 MG TAB PO ONE (06:48)
[2024-08-25 07:23] VITALS: O2SAT 96
[2024-08-25 07:27] LABS: Blood Morphology Comment NOT SEEN (NOT SEEN); Platelet Estimate ADEQ; White Blood Cell Scan OK (OK)
--- NOTE | 2024-08-25 08:46 | P.DS ---
Admission Date: 08/18/24 Discharge Date: 08/25/24 Disposition: TRANSFER TO SNF - MEDICAL Discharge Condition: GOOD Reason for Admission: UTI Brief History of Present Illness: 78yo M, PMH: coronary disease, hypertension, lung cancer, prostate cancer Patient presents to ER with complaints of altered mental status. 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 They contacted his primary care and recommend him to come to the ER due to concern for urinary tract infection. The son reports that patient did have some confusion although he is close to baseline. Denies any fevers or chills, nausea or vomiting or diarrhea. Recent diagnosed with a DVT that progressed to a PE. Currently on Eliquis. Hospital Course: Problem List: Acute metabolic encephalopathy secondary to UTI - Proteus Mirabilis ESBL COPD, chronic History of lung/prostate cancer Chronic respiratory failure with hypoxia; on Home O2 Chronic back pain Generalized weakness Wheelchair-bound status Moderate Protein-Calorie Malnutrition related to chronic illness Subacute DVT/PE (07/15/24) Physician discharge instructions: Patient presented with confusion, altered mentation, foul-smelling urine secondary to UTI. Patient and family reported long history of recurrent UTI's ever since prostate surgery many years ago, and has ongoing incontinence / dribbling. Urine culture grew multi-drug resistant Proteus Mirabilis ESBL and Klebsiella Pneumoniae. Antibiotics were switched to IV merrem following culture results and patient had improvement of his symptoms. Mentation improved close to patients baseline with time. Initially home medications that could contribute to his altered mentation / confusion were held, which included longstanding pain medication. Patient did have an episode of confusion / out of body experience for which repeat labs and imaging (CT head) were negative for any acute findings. Uncertain if due to delirium from infection/hospitalization vs a component of withdrawal. He was restarted on his regular home regimen of pain medication and continued to have steady improvement. Patient was set up for additional 7 days of IV merrem at time of SNF initiation, which ends up being ~ 9 days of total therapy. (End date: 08/29/24). Patient was feeling better, afebrile without leukocytosis > 24 hours, confusion improved, and was deemed stable for discharge to [facility]. He was evaluated by PT and noted to have some increased weakness and unsteadiness above baseline as result of this episode. He will benefit from ongoing PT services at [facility]. Medications: IV Merrem (End date: 08/29/24) continue other home meds as previously prescribed Follow up: PCP 3-5 days after dc from [facility] please call to schedule / confirm appointments Physical Exam: GEN: Alert, NAD CV: Regular rate and rhythm, no edema Pulm: Nonlabored respirations on 2L NC, clear bilaterally ABD: soft, nontender, nondistended Neuro: Normal speech, Bilateral lower extremity weakness - chronic Vital Signs/Physical Exam: Temp Pulse Resp BP Pulse Ox 98.3 F 93 H 14 125/65 94 08/25/24 08:00 08/25/24 08:00 08/25/24 08:00 08/25/24 08:00 08/25/24 08:00 Laboratory Data at Discharge: WBC 12.10 thou/uL (4.3-10.9) H 08/25/24 04:05 Hgb 10.5 g/dL (13.6-17.9) L 08/25/24 04:05 Hct 33.4 % (39.6-49.0) L 08/25/24 04:05 Plt Count 345 thou/uL (152-406) 08/25/24 04:05 PT 15.7 SECONDS (9.4-12.5) H 08/17/24 21:26 INR 1.42 08/17/24 21:26 APTT 38.3 SECONDS (24.3-36.9) H 08/17/24 21:26 Sodium 137 mEq/L (136-145) 08/25/24 04:08 Potassium 4.4 mEq/L (3.5-5.1) 08/25/24 04:08 BUN 20 mg/dL (7-18) H 08/25/24 04:08 Creatinine 0.76 mg/dL (0.70-1.30) 08/25/24 04:08 Glucose 153 mg/dL (74-106) H 08/25/24 04:08 Magnesium 2.4 mg/dL (1.6-2.4) 08/25/24 04:08 Total Bilirubin 0.3 mg/dL (0.2-1.0) 08/19/24 04:06 AST 18 U/L (15-37) 08/19/24 04:06 ALT 23 U/L (16-61) 08/19/24 04:06 Alkaline Phosphatase 86 U/L (45-117) 08/19/24 04:06 Home Medications: Amlodipine Besylate [Norvasc] 10 mg PO BEDTIME 12/25/11 Gabapentin [Neurontin] 300 mg PO TID 06/24/18 fentaNYL [Duragesic] 125 mcg TD Q72H 01/10/19 allopurinoL [Zyloprim*] 300 mg PO DAILY 04/05/19 Metoprolol Succinate 25 mg PO BEDTIME 01/07/20 Omeprazole [Prilosec] 40 mg PO BID 06/16/24 Oxycodone HCl [Oxycontin] 15 mg PO TID 06/16/24 Promethazine Tab [Phenergan*] 25 mg PO BIDP PRN 06/16/24 Vibegron [Gemtesa] 75 mg PO DAILY 06/16/24 Albuterol Neb [Proventil 0.083% Neb Soln] 2.5 mg NEB [id number] amp 06/21/24 Atorvastatin Calcium [Lipitor*] 20 mg PO BEDTIME #30 tab 06/21/24 Ipratropium Neb [Atrovent*] 0.5 mg NEB [id number] amp 06/21/24 PARoxetine HCL [Paxil*] 10 mg PO DAILY tab 06/21/24 Apixaban [Eliquis] 5 mg PO BID 08/18/24 Megestrol [Megace*] 40 mg PO BEDTIME 08/18/24 Midodrine HCl 5 mg PO PRN 08/20/24 Physician Discharge Instructions: Physician discharge instructions: Patient presented with confusion, altered mentation, foul-smelling urine secondary to UTI. Patient and family reported long history of recurrent UTI's ever since prostate surgery many years ago, and has ongoing incontinence / dribbling. Urine culture grew multi-drug resistant Proteus Mirabilis ESBL and Klebsiella Pneumoniae. Antibiotics were switched to IV merrem following culture results and patient had improvement of his symptoms. Mentation improved close to patients baseline with time. Initially home medications that could contribute to his altered mentation / confusion were held, which included longstanding pain medication. Patient did have an episode of confusion / out of body experience for which repeat labs and imaging (CT head) were negative for any acute findings. Uncertain if due to delirium from infection/hospitalization vs a component of withdrawal. He was restarted on his regular home regimen of pain medication and continued to have steady improvement. Patient was set up for additional 7 days of IV merrem at time of SNF initiation, which ends up being ~ 9 days of total therapy. (End date: 08/29/24). Patient was feeling better, afebrile without leukocytosis > 24 hours, confusion improved, and was deemed stable for discharge to SNF - [facility]. He was evaluated by PT and noted to have some increased weakness and unsteadiness above baseline as result of this episode. He will benefit from ongoing PT services at [facility]. medications: IV Merrem (End date: 08/29/24) continue other home meds as previously prescribed Follow up: PCP 3-5 days after dc from [facility] please call to schedule / confirm appointments Followup: Kennedy Alejandra MD [Primary Care Provider] - 1-2 Weeks Time spent managing pt's care (in minutes): 45
[2024-08-25 12:19] VITALS: BP 152/71; TEMP 97.7
== END 2024-08-25 13:41 | DRG 689 ==
LOC: ER 15:59 → ERHOLD 08-18 01:26 → 2ND 08-18 13:41
PROVIDERS: ADMIT Internal Medicine; ATTEND Hospitalist
PROC: 02HV33Z Insertion of Infusion Device into Superior Vena Cava, Percutaneous Approach (ICD-10-PCS; principal; 2024-08-22)
DX: N30.01 Acute cystitis with hematuria (principal); G93.41 Metabolic encephalopathy; Z16.12 Extended spectrum beta lactamase (ESBL) resistance; N17.9 Acute kidney failure, unspecified; F03.918 Unspecified dementia, unspecified severity, with other behavioral disturbance; F05 Delirium due to known physiological condition; J96.11 Chronic respiratory failure with hypoxia; F03.911 Unspecified dementia, unspecified severity, with agitation; E44.0 Moderate protein-calorie malnutrition; Z16.24 Resistance to multiple antibiotics; K21.9 Gastro-esophageal reflux disease without esophagitis; I10 Essential (primary) hypertension; E78.5 Hyperlipidemia, unspecified; M54.9 Dorsalgia, unspecified; G89.3 Neoplasm related pain (acute) (chronic); J44.9 Chronic obstructive pulmonary disease, unspecified; I25.10 Atherosclerotic heart disease of native coronary artery without angina pectoris; B96.4 Proteus (mirabilis) (morganii) as the cause of diseases classified elsewhere; B96.1 Klebsiella pneumoniae [K. pneumoniae] as the cause of diseases classified elsewhere; Z99.3 Dependence on wheelchair; Z68.25 Body mass index [BMI] 25.0-25.9, adult; Z79.01 Long term (current) use of anticoagulants; Z79.52 Long term (current) use of systemic steroids; Z85.46 Personal history of malignant neoplasm of prostate; Z79.899 Other long term (current) drug therapy; Z86.711 Personal history of pulmonary embolism; Z86.718 Personal history of other venous thrombosis and embolism; Z85.118 Personal history of other malignant neoplasm of bronchus and lung
CPT/HCPCS: 36415; 70450; 71045; 80048; 80053; 80307; 81001; 82550; 82947; 83605; 83735; 84145; 84439; 84443; 85025; 85027; 85610; 85730; 86038; 86140; 87040; 87077; 87086; 87088; 87186; 93005; 94640; 94760; 96365; 97110; 97161; 97530; 99285; J0696; J1100; J2185; J2405; J3010; J7030; J7040; J7613; J7644

== ENCOUNTER 2025-06-02 16:41 | Emergency (ER) | payer OTHER, BC ==
[2025-06-02] MEDS ORDERED: NA CHLORIDE 0.9% 1,000 ML ONE (17:58)
[2025-06-02 18:04] LABS: Absolute Lymphocytes (CBC) 1.5 K/uL (0.7-4.9); Hematocrit 40.6 % (39.6-49.0); Hemoglobin 13.5 g/dL (13.6-17.9); MCH 31.1 pg (27.0-35.0); MCHC 33.2 g/dL (32.0-36.0); MCV 93.6 fL (80-100); MPV 7.6 fL (7.6-11.3); Nucleated RBC Absolute Count 0.0 (0-0); Nucleated Red Blood Cells % 0.0 % (0-0); RBC Red Blood Cell Count 4.34 M/uL (4.33-5.43); White Blood Count 14.40 thou/uL (4.3-10.9)
[2025-06-02 18:14] LABS: PT Prothrombin Time 33.7 SECONDS (10-13.0); PTT, Activated Partial Thromb 46.2 SECONDS (27.2-37.4); Protime INR 3.08
[2025-06-02 18:22] LABS: ALT/SGPT 33.0 U/L (16-61); AST/SGOT 17.0 U/L (15-37); Albumin 3.7 g/dL (3.4-5.0); Albumin/Globulin Ratio 0.9 (1.1-1.8); Alkaline Phosphatase 98.0 U/L (45-117); Anion Gap 11.9 mEq/L (5.0-15.0); BUN Blood Urea Nitrogen 27.0 mg/dL (7-18); Globulin 4.0 g/dL (2.3-3.5); Glucose Level 115.0 mg/dL (74-106); Potassium 3.9 mEq/L (3.5-5.1)
[2025-06-02 20:05] LABS: Sqamous Epithelial <5 /HPF (None Seen); Urine Crystals Unidentified Few /HPF (None Seen); Urine Culture Reflex Order NOT NEEDED; Urine Microscopic Reflex YN ORDER UMIC
--- NOTE | 2025-06-02 21:07 | RAD REPORT ---
EXAM: CT brain without contrast HISTORY: Confusion COMPARISON: February 2025 TECHNIQUE: Multiple contiguous axial images were obtained and a CT of the brain without contrast.. Sagittal and coronal reconstruction performed. Automated exposure control, adjustment of the mA and/or kV according to patient size, and/or iterative reconstruction. Unless otherwise specified, incidental f indings do not require dedicated imaging follow-up FINDINGS: An intracranial bleed is not seen Ventricles are normal caliber No extra-axial fluid collection noted No significant hypodensity within the brain. 1 cm calcified meningioma abutting the left cerebral con vexity unchanged. No surrounding edema. No fluid within the visualized sinuses or mastoids noted. IMPRESSION: No acute intracranial abnormality noted. If the patient continues to have symptoms to suggest an acute intracranial abnormality then MRI of th e brain would be recommended.
--- NOTE | 2025-06-02 21:08 | RAD REPORT ---
Procedure: Chest Single View HISTORY: Cough COMPARISON: April 2025 FINDINGS: Mild bilateral pulmonary opacities unchanged. No significant pleural effusion noted. The heart is normal size.. Neuro stimulator device in place. Scoliosis involves the spine. IMPRESSION: No acute abnormality is displayed.
[2025-06-02 23:19] LABS: Influenza A Ag Negative; Influenza B Ag Negative; SARS-CoV-2 Antigen Rapid Res Negative (Negative)
--- NOTE | 2025-06-02 23:43 | RAD REPORT ---
Clinical Indication: Bed Name: 14; altered mental status Comparison: April 14, 2025 TECHNIQUE: Sequential trans-axial images were obtained through the chest, abdomen and pelvis after in travenous administration of iodinated contrast. Oral contrast was not administered. Coronal and sagittal reconstructions were obtained and provided as separate series. Pre and postcontrast images w ere obtained. IV CONTRAST: IV contrast dose was not provided All CT scans at this location are performed using dose optimization techniques as appropriate to perf orm the study. Radiation dose reduction technique was utilized including one or more of the following: Automated exp osure control, adjustment of the mA and/or kV according to patient size and use of iterative reconstruction technique. CT Radiation Dose DLP 1888.9 mGy-cm FINDINGS: CT CHEST WITH CONTRAST: LUNG PARENCHYMA AND PLEURA: No dense airspace consolidation is noted. Small pulmonary nodules are aga in noted and unchanged compared to April 14, 2025. Fibrosis/scarring is noted within the right lower lobe. There is no significant interstitial lung disease. There are no pleural effusions. T here is no pneumothorax. AIRWAY: The central airway is patent. No bronchial wall thickening is noted. No bronchiectasis is not ed. MEDIASTINUM: No significant mediastinal lymphadenopathy. Small subcentimeter paratracheal and preao rtic lymph nodes are noted. HEART: The cardiac chambers are unremarkable. There is trace pericardial effusion. VASCULAR STRUCTURES: The pulmonary arteries and great vessels are unremarkable. The thoracic aorta is within normal limits.. The superior vena cava is unremarkable. OSSEOUS STRUCTURES: There are no acute osseous abnormalities seen. No sternal or thoracic spine fract ures are noted. Epidural stimulators are noted over the mid thoracic spine. CT ABDOMEN AND PELVIS WITH CONTRAST: LIVER: Unremarkable. GALLBLADDER: The patient is status post cholecystectomy. INTRAHEPATIC BILE DUCT AND EXTRAHEPATIC BILE DUCT: Unremarkable. PANCREAS: Unremarkable. SPLEEN: Unremarkable. ADRENALS: Unremarkable. KIDNEYS AND URETERS: The renal contours are normal. There is no hydronephrosis. No surrounding fa t stranding is noted. 2 mm stone is noted in the right upper pole on image 66 of series 301. No stones are noted within the right ureter. No stones are noted within the left kidney or left ureter. STOMACH: Evaluation of the stomach and bowel is limited due to lack of oral contrast. No gross abno rmalities of the stomach are noted. Percutaneous gastrostomy catheter is noted in the antrum of the stomach. BOWEL: The small bowel loops in the abdomen and pelvis appear unremarkable. The colonic loops in the abdomen and pelvis appear unremarkable. APPENDIX: Not well seen on the exam. PERITONEUM AND RETROPERITONEUM: No ascites or free air. There is no aortic aneurysm or dissection. Mo derate atherosclerotic disease is noted in the aortoiliac vessels. PELVIS: The patient is status post prostatectomy. Surgical clips are noted along the bilateral pelvic sidewalls. BLADDER: Unremarkable LYMPH NODES: No enlarged pelvic, retroperitoneal or mesenteric lymph nodes are noted. OSSEOUS STRUCTURES: No acute abnormality seen. Posterior lumbosacral fixation hardware is noted. Left sacroiliac joint fixation hardware is noted. SOFT TISSUES: Small subcutaneous soft tissue nodules are noted in the right gluteal region and left g luteal/flank region. These likely represent injection granuloma. IMPRESSION: 1. No acute abnormality of the chest, abdomen or pelvis is noted. 2. Nonobstructing right upper pole 2 mm renal calyceal stone. 3. Status post prostatectomy with lymph node resection. No CT evidence of local recurrence or metasta sis. 4. Stable tiny pulmonary nodules. Electronically signed by: Toan Gaitan MD 06/02/2025 11:18 PM CDT Due to temporary technical issues with the PACS[employer] reporting system, reports are being cecelia d by the in-house radiologist without review as a courtesy to ensure prompt reporting the interpreting radiologist is fully responsible for the content of the report. Transcribed Date/Time: 06/02/2025 11:43 PM
--- NOTE | 2025-06-02 23:43 | ER ---
Nurse's Notes [facility] Name: Cas Denny Age: 79 yrs Sex: Male : 1945 Arrival Date: 06/02/2025 Time: 16:41 Bed 14 Private MD: Diagnosis: Altered mental status, unspecified Presentation: 06/02 17:11 Chief complaint: EMS states: CHRONIC UTI. Coronavirus screen: At this time, the client iw does not indicate any symptoms associated with coronavirus-19. Ebola Screen: No symptoms or risks identified at this time. Initial Sepsis Screen: Does the patient meet any 2 criteria? HR > 90 bpm. No. Patient's initial sepsis screen is negative. Does the patient have a suspected source of infection? No. Patient's initial sepsis screen is negative. Risk Assessment: Do you want to hurt yourself or someone else? Patient reports no desire to harm self or others. Onset of symptoms is unknown. Care prior to arrival: Glucose check: 147. 17:11 Method Of Arrival: EMS: [facility] iw 17:11 Acuity: MIRZA 3 iw Triage Assessment: 17:12 General: Appears in no apparent distress. ill, Behavior is anxious. Pain: Denies pain. iw EENT: No deficits noted. Neuro: Level of Consciousness is awake, confused, Oriented to person. Cardiovascular: Rhythm is sinus rhythm. Respiratory: No deficits noted. GI: No signs and/or symptoms were reported involving the gastrointestinal system. : No signs and/or symptoms were reported regarding the genitourinary system. Derm: No deficits noted. Musculoskeletal: No deficits noted. Historical: - Allergies: 17:12 GABAPENTIN; iw 17:12 adhesive tape-silicones; iw - Home Meds: 22:30 kameron boost-vitamin [Active]; allopurinol 300 mg Oral tab 1 tab three times a day ss12 [Active]; amlodipine 5 mg tab 1 tab once daily [Active]; atorvastatin 20 mg Oral tab 1 tab once daily [Active]; fentanyl 100 mcg/hr Topical pt72 1 patch every 72 hours [Active]; gabapentin 300 mg Oral cap [Active]; megestrol 20 mg Oral tab 1 tab [Active]; metoprolol succinate 25 mg Oral Tb24 1 tab once daily [Active]; [place] 10-325 mg Oral tab 1 tab as needed [Active]; phenazopyridine 200 mg Oral tab 1 tab twice a day [Active]; Protonix 40 mg Oral TbEC 1 tab once daily [Active]; Reglan 10 mg Oral tab 1 tab once daily [Active]; Stool Softener Oral [Active]; sucralfate Oral [Active]; sucralfate 1 gram Oral tab 1 tab three times a day [Active]; - PMHx: 17:12 Back pain; CAD; chronic back pain; GERD; Kidney stones; Lung Cancer; Hypertension; iw Prostate Cancer; - PSHx: 17:12 Appendectomy; Cholecystectomy; iw - Immunization history:: Adult Immunizations up to date. - Infectious Disease History:: Denies. - Social history:: Smoking status: Patient denies any tobacco usage or history of. Screenin:24 [facility] ED Fall Risk Assessment (Adult) History of falling in the last 3 months, hb including since admission Yes- physiologic fall (2 pts) Confusion or Disorientation Yes (5 pts) Intoxicated or Sedated No (0 pts) Impaired Gait Yes (1 pt) Mobility Assist Device Used Yes (1 pt) Altered Elimination Yes (1 pt) Score/Fall Risk Level 3 or more points = High Risk Oriented to surroundings, Maintained a safe environment, Educated pt \\T\\ family on fall prevention, incl call for assistance when getting out of bed, Assessed \\T\\ reinforced patient's understanding of fall precautions. Abuse screen: Denies threats or abuse. Denies injuries from another. Nutritional screening: No deficits noted. Tuberculosis screening: No symptoms or risk factors identified. Assessment: 17:20 General: Appears in no apparent distress. ill, Behavior is cooperative, restless. Pain: hb Denies pain. Neuro: Level of Consciousness is obeys commands, confused, lethargic, Oriented to person. Cardiovascular: Patient's skin is warm and dry. Respiratory: Respiratory effort is even, unlabored, Respiratory pattern is regular, symmetrical. GI: No signs and/or symptoms were reported involving the gastrointestinal system. : No signs and/or symptoms were reported regarding the genitourinary system. EENT: No signs and/or symptoms were reported regarding the EENT system. Derm: Skin is dry, Skin is pale, Skin temperature is warm. Musculoskeletal: No signs and/or symptoms reported regarding the musculoskeletal system. 18:24 Reassessment: Patient appears in no apparent distress at this time. No changes from hb previously documented assessment. Son remains at bedside. 19:00 General: Appears in no apparent distress. comfortable, Behavior is calm, cooperative. ss12 Pain: Denies pain. Neuro: Level of Consciousness is awake, alert, confused, lethargic, Oriented to person. Cardiovascular: Patient's skin is warm and dry. Respiratory: Airway is patent Respiratory effort is even, unlabored, Respiratory pattern is regular, symmetrical. GI: No deficits noted. No signs and/or symptoms were reported involving the gastrointestinal system. : pure wick on. concentrated urine noted. EENT: No deficits noted. No signs and/or symptoms were reported regarding the EENT system. Derm: Skin is dry, Skin is pale, Skin temperature is warm. Musculoskeletal: No signs and/or symptoms reported regarding the musculoskeletal system. 20:00 Reassessment: Patient appears in no apparent distress at this time. No changes from ss12 previously documented assessment. Patient and/or family updated on plan of care and expected duration. Pain level reassessed. 21:00 Reassessment: Patient appears in no apparent distress at this time. No changes from ss12 previously documented assessment. Patient and/or family updated on plan of care and expected duration. Pain level reassessed. 22:00 Reassessment: Patient appears in no apparent distress at this time. No changes from ss12 previously documented assessment. Patient and/or family updated on plan of care and expected duration. Pain level reassessed. 23:00 Reassessment: Patient appears in no apparent distress at this time. No changes from ss12 previously documented assessment. Patient and/or family updated on plan of care and expected duration. Pain level reassessed. 06/03 00:21 Reassessment: Patient appears in no apparent distress at this time. No changes from ss12 previously documented assessment. Patient and/or family updated on plan of care and expected duration. Pain level reassessed. 02:20 Neuro: Level of Consciousness is awake, alert, obeys commands, Oriented to person, ss12 place. 03:21 Reassessment:. 12 03:22 Reassessment: Pt transfer consent received from next of kin son Krishan Denny to 12 transfer pt to [facility]. Son requested to be notified once pt leaves the hospital. Vital Signs: 06/02 17:11 Pulse 100; Resp 20; Temp 98.5; Pulse Ox 95% on 2 lpm NC; iw 18:29 BP 96 / 59; Pulse 108; Resp 17; Pulse Ox 100% ; hb 19:15 BP 126 / 81; Pulse 95; Resp 16; Pulse Ox 100% on 2 lpm NC; ss12 20:40 BP 130 / 84; Pulse 93; Resp 16; Pulse Ox 98% on 2 lpm NC; ss12 21:30 BP 108 / 92; Pulse 94; Resp 16; Pulse Ox 99% on 2 lpm NC; ss12 22:45 BP 151 / 79; Pulse 85; Resp 16; Pulse Ox 99% on 1 lpm NC; ss12 23:00 BP 132 / 94; Pulse 110; Resp 16; Pulse Ox 100% on 2 lpm NC; ss12 06/03 00:18 BP 124 / 92; Pulse 112; Resp 16; Pulse Ox 100% on 2 lpm NC; ss12 01:00 BP 148 / 87; Pulse 80; Resp 16; Pulse Ox 100% on 2 lpm NC; ss12 02:00 BP 127 / 87; Pulse 84; Resp 16; Pulse Ox 100% on 2 lpm NC; ss12 03:25 BP 148 / 105; Pulse 87; Resp 16; Pulse Ox 98% on 2 lpm NC; ss12 04:25 BP 158 / 86; Pulse 86; Resp 16; Pulse Ox 97% on 2 lpm NC; ss12 [place] Coma Score: 00:23 Eye Response: spontaneous(4). Motor Response: obeys commands(6). Verbal Response: ss12 confused(4). Total: 14. ED Course: 06/02 17:07 Patient arrived in ED. eb 17:09 Luana Addison PA-C is PHCP. sb4 17:09 Naif Batista MD is Attending Physician. sb4 17:12 Triage completed. iw 17:12 Arm band placed on. iw 18:00 Inserted saline lock: 20 gauge in right antecubital area, using aseptic technique. hb Blood collected. Flushed with 10 mL NS. 18:24 Patient has correct armband on for positive identification. Call light in reach. hb Provided Education on: ,. 18:24 Client placed on continuous cardiac and pulse oximetry monitoring. NIBP monitoring hb applied. clinical research monitor on. Pulse ox on. NIBP on. 20:02 UA Rfx Tomas Cult if indicated Sent. rk3 20:26 Benedict Mcmullen, RN is Primary Nurse. ss12 20:34 PHCP role handed off by Luana Addison PA-C 20:34 Naif Liao PA-C is PHCP. cp 20:36 Head Brain Wo Cont CT In Process Unspecified. EDMS 20:52 Chest Single View XRAY In Process Unspecified. EDMS 22:01 CT Chest, Abdomen, Pelvis - W/Contrast In Process Unspecified. EDMS 23:42 Rudy Archer, JENNIFER is Hospitalizing Provider. 06/03 01:28 Attending Physician role handed off by Naif Batista MD sp4 01:28 Popeye Jones MD is Attending Physician. sp4 04:25 No provider procedures requiring assistance completed. 12 04:26 Patient transferred, IV remains in place. 12 Administered Medications: 06/02 18:07 Drug: NS 0.9% IV 1000 ml IV at 1 bolus Per protocol; to be given as a bolus over 60 iw minutes Route: IV; Rate: 1 bolus; Site: right upper arm; 19:00 Follow up: IV Status: Completed infusion; IV Intake: 1000ml 12 18:45 Drug: NS 0.9% IV 1000 ml IV at 1 bolus Per protocol; to be given as a bolus over 60 hb minutes Route: IV; Rate: 1 bolus; Site: right upper arm; 19:00 Follow up: IV Status: Completed infusion; IV Intake: 1000ml [facility] Medication: 18:24 VIS not applicable for this client. hb Intake: 19:00 IV: 1000ml; Total: 1000ml. ss12 19:00 IV: 1000ml; Total: 2000ml. 12 Outcome: 23:43 Decision to Hospitalize by Provider. 06/03 02:10 ER care complete, transfer ordered by . cp 04:25 Transferred by ground EMS Note: [facility] 04:25 Condition: stable 04:25 Discharge instructions given to EMS, 04:27 Patient left the ED. 12 Signatures: Dispatcher [employer] EDMS Heidi Duarte RN RN Naif Liao PA-C PA-C cp Baxter, Heather, RN RN Jo Ann Andersen Luana Addison PA-C PA-C 4 Popeye Jones MD MD sp4 Marek Gandhi rk3 Benedict Mcmullen, RN RN 12 Corrections: (The following items were deleted from the chart) 06/02 22:36 22:30 PMHx: "bad esophagus"; [place] [id number] 06/03 03:31 06/02 23:00 BP 132 / 94; Pulse 110bpm; Resp 16bpm; Pulse Ox 100% RA; [place] [id number] 06/03 03: 00:18 BP 124 / 92; Pulse 112bpm; Resp 16bpm; Pulse Ox 100% RA; [place] [address] 03:31 01:00 BP 148 / 87; Pulse 80bpm; Resp 16bpm; Pulse Ox 100% RA; [place] [address] 03: 02:00 BP 127 / 87; Pulse 84bpm; Resp 16bpm; Pulse Ox 100% RA; [place] [address] 04:27 04:25 Transferred by ground EMS [place] [id number]
--- NOTE | 2025-06-02 23:44 | EDPHYS ---
Physician Documentation [facility] Name: Cas Denny Age: 79 yrs Sex: Male : 1945 Arrival Date: 06/02/2025 Time: 16:41 Bed 14 Private MD: ED Physician Popeye Jones HPI: 06/02 17:35 This 79 yrs old Male presents to ER via EMS with complaints of Altered Mental Status. sb4 17:35 Family called EMS because patient was more altered than usual. They state that he has sb4 chronic UTIs and does have dementia and is confused chronically, but he has been more confused than usual and has been smelling strongly of urine. EMS noted borderline low blood pressure and tachycardia, no fever. Historical: - Allergies: 17:12 GABAPENTIN; iw 17:12 adhesive tape-silicones; iw - Home Meds: 22:30 kameron boost-vitamin [Active]; allopurinol 300 mg Oral tab 1 tab three times a day ss12 [Active]; amlodipine 5 mg tab 1 tab once daily [Active]; atorvastatin 20 mg Oral tab 1 tab once daily [Active]; fentanyl 100 mcg/hr Topical pt72 1 patch every 72 hours [Active]; gabapentin 300 mg Oral cap [Active]; megestrol 20 mg Oral tab 1 tab [Active]; metoprolol succinate 25 mg Oral Tb24 1 tab once daily [Active]; [place] 10-325 mg Oral tab 1 tab as needed [Active]; phenazopyridine 200 mg Oral tab 1 tab twice a day [Active]; Protonix 40 mg Oral TbEC 1 tab once daily [Active]; Reglan 10 mg Oral tab 1 tab once daily [Active]; Stool Softener Oral [Active]; sucralfate Oral [Active]; sucralfate 1 gram Oral tab 1 tab three times a day [Active]; - PMHx: 17:12 Back pain; CAD; chronic back pain; GERD; Kidney stones; Lung Cancer; Hypertension; iw Prostate Cancer; - PSHx: 17:12 Appendectomy; Cholecystectomy; iw - Immunization history:: Adult Immunizations up to date. - Infectious Disease History:: Denies. - Social history:: Smoking status: Patient denies any tobacco usage or history of. ROS: 17:35 Unable to obtain ROS due to altered mental status, sb4 Exam: 17:35 Head/Face: Normocephalic, atraumatic. Eyes: Extra-ocular motions intact. Periorbital sb4 areas with no swelling, redness, or edema. Cardiovascular: Regular rate and rhythm with a normal S1 and S2. Respiratory: No increased work of breathing, no retractions or nasal flaring. Abdomen/GI: Soft, non-tender, no distension. Skin: Warm, dry with normal turgor. Normal color with no rashes, no lesions, and no evidence of cellulitis. 17:35 Constitutional: The patient appears in no acute distress, alert, awake, smells of urine, 17:35 ENT: Mouth: Oral mucosa: dry, Vital Signs: 17:11 Pulse 100; Resp 20; Temp 98.5; Pulse Ox 95% on 2 lpm NC; iw 18:29 BP 96 / 59; Pulse 108; Resp 17; Pulse Ox 100% ; hb 19:15 BP 126 / 81; Pulse 95; Resp 16; Pulse Ox 100% on 2 lpm NC; ss12 20:40 BP 130 / 84; Pulse 93; Resp 16; Pulse Ox 98% on 2 lpm NC; ss12 21:30 BP 108 / 92; Pulse 94; Resp 16; Pulse Ox 99% on 2 lpm NC; ss12 22:45 BP 151 / 79; Pulse 85; Resp 16; Pulse Ox 99% on 1 lpm NC; ss12 23:00 BP 132 / 94; Pulse 110; Resp 16; Pulse Ox 100% on 2 lpm NC; 12 06/03 00:18 BP 124 / 92; Pulse 112; Resp 16; Pulse Ox 100% on 2 lpm NC; 12 01:00 BP 148 / 87; Pulse 80; Resp 16; Pulse Ox 100% on 2 lpm NC; 12 02:00 BP 127 / 87; Pulse 84; Resp 16; Pulse Ox 100% on 2 lpm NC; 12 03:25 BP 148 / 105; Pulse 87; Resp 16; Pulse Ox 98% on 2 lpm NC; 12 04:25 BP 158 / 86; Pulse 86; Resp 16; Pulse Ox 97% on 2 lpm NC; ss12 [place] Coma Score: 00:23 Eye Response: spontaneous(4). Motor Response: obeys commands(6). Verbal Response: ss12 confused(4). Total: 14. MDM: 09/26 17:09 Medical Screening Exam initiated sb4 19:57 Differential Diagnosis: electrolyte abnormality, hypoglycemia, pneumonia, UTI, volume sb4 depletion. 20:30 Transition of care: After a detail discussion of the patient's case, care is sb4 transferred to Naif Batista MD. 23:45 Data reviewed: vital signs, nurses notes, lab test result(s), EKG, radiologic studies, cp CT scan, plain films, I have discussed the patient's presentation/case with the attending Emergency Department Physician;. ED course: consult with DR Kurtz who recommends transfer for continuous EEG and MRI. 23:45 Management of patient was discussed with the following: Hospitalist: MR Archer who cp recommends transfer . I considered the following discharge prescriptions or medication management in the emergency department Medications were administered in the Emergency Department. See NOV. 06/03 01:00 ED course: msg left on voicemail of DR Kurtz. cp 03:04 ED course: consult with DR dangelo at [facility], DR Hernandez, who will cp accept patient as transfer. 06/02 17:12 Order name: Blood Culture Adult (2) [facility] 06/02 17:12 Order name: CBC with Diff; Complete Time: 18:07 [facility] 06/02 21:31 Interpretation: Normal except: WBC 14.40; HGB 13.5; SHAWANDA% 82.8; LYM% 10.4; NEUT A 12.0. 06/02 17:12 Order name: CMP; Complete Time: 18:23 [facility] 06/02 21:32 Interpretation: Normal except: GLUC 115; BUN 27; GFR 72; GLOB 4.0; A/G 0.9. 06/02 17:12 Order name: Lactate w/ 2H reflex if indic.; Complete Time: 18:24 [facility] 06/02 17:12 Order name: Protime (+inr); Complete Time: 18:14 [facility] 06/02 21:32 Interpretation: Reviewed. 06/02 17:12 Order name: Ptt, Activated; Complete Time: 18:14 [facility] 06/02 17:12 Order name: UA Rfx Tomas Cult if indicated; Complete Time: 20:05 [facility] 06/02 20:06 Order name: COVID-19 Ag + Flu A+B Ag; Complete Time: 23:39 [facility] 06/02 19:58 Order name: Chest Single View XRAY; Complete Time: 21:30 sb4 06/02 21:30 Interpretation: Report review. 06/02 20:06 Order name: Head Brain Wo Cont CT; Complete Time: 21:30 sb4 06/02 21:35 Order name: CT Chest, Abdomen, Pelvis - W/Contrast; Complete Time: 01:29 cp 06/02 18:02 Order name: EKG; Complete Time: 18:03 sb4 06/02 17:12 Order name: IV Saline Lock - Large Bore; Complete Time: 18:07 sb4 06/02 17:12 Order name: Labs collected and sent; Complete Time: 18:07 sb4 06/02 18:02 Order name: EKG - Nurse/Tech; Complete Time: 18:02 sb4 EC/26 18:02 Rate is 97 beats/min. Rhythm is regular, Normal Sinus Rhythm. [place] interval is normal at sb4 150 msec. QRS interval is normal at 66 msec. QT interval is normal at 360 msec. No Q waves. T waves are Normal. No ST changes noted. Clinical impression: No evidence of ischemia. Interpreted by me. Reviewed by me. Administered Medications: 18:07 Drug: NS 0.9% IV 1000 ml IV at 1 bolus Per protocol; to be given as a bolus over 60 iw minutes Route: IV; Rate: 1 bolus; Site: right upper arm; 19:00 Follow up: IV Status: Completed infusion; IV Intake: 1000ml ss12 18:45 Drug: NS 0.9% IV 1000 ml IV at 1 bolus Per protocol; to be given as a bolus over 60 hb minutes Route: IV; Rate: 1 bolus; Site: right upper arm; 19:00 Follow up: IV Status: Completed infusion; IV Intake: 1000ml ss12 Disposition: 06/03 07:05 Co-signature as Attending Physician, Popeye Jones MD I agree with the assessment sp4 and plan of care. I reviewed the patient's care provided by Advanced Practice Provider \\T\\ agree w/ the diagnosis \\T\\ care plan. I personally saw the pt \\T\\ performed a substantive portion of the visit, incldng all aspects of the (History/Exam/Medical Decision Making). Disposition Summary: 06/03/25 02:10 Transfer Ordered Notes: Transfer Location: [facility] cp Reason: Higher level of care cp Condition: Stable(06/03/25 02:10) cp Problem: new(06/03/25 02:10) cp Symptoms: are unchanged(06/03/25 02:10) cp Accepting Physician: DR Hernandez(06/03/25 04:27) ss12 Diagnosis - Altered mental status, unspecified(06/03/25 02:10) cp Forms: - Medication Reconciliation Form cp - SBAR form cp Signatures: Dispatcher [employer] EDMS Heidi Duarte, RN RN Naif Liao PA-C PA-C cp Shavon Minor RN RN Luana Addison PA-C PARoshan sb4 Popeye Jones MD MD sp4 Benedict Mcmullen RN RN ss12 Corrections: (The following items were deleted from the chart) 06/02 20:06 20:06 COVID-19 Ag + Flu A+B Ag+I.LAB.BRZ ordered. EDWV EDMS 22:36 22:30 PMHx: "bad esophagus"; ss12 ss12 06/03 02:09 06/02 23:43 Inpatient Admission cp cp 06/03 02:06/02 23:43 Rudy Archer cp cp 06/03 02:06/02 23:43 Telemetry/MedSurg (Inpatient) cp cp 06/03 02:06/02 23:43 Stable cp cp 06/03 02:06/02 23:43 new cp cp 06/03 02:06/02 23:43 are unchanged cp cp 06/03 02:06/02 23:43 Standard cp cp 06/03 02:06/02 23:43 cp cp 06/03 02:06/02 23:43 Altered mental status, unspecified cp cp 06/03 03:05 02:10 Doctor cp cp 04: 03:05 DR Hernandez cp ss12
[2025-06-03 04:50] VITALS: TEMP 98.5
[2025-06-03 05:09] VITALS: BP 158/86; O2SAT 97
== END 2025-06-03 04:27 | disposition short-term general hospital (02) ==
LOC: ER 16:41
DX: R41.82 Altered mental status, unspecified (principal); F03.90 Unspecified dementia, unspecified severity, without behavioral disturbance, psychotic disturbance, mood disturbance, and anxiety; I10 Essential (primary) hypertension; I25.10 Atherosclerotic heart disease of native coronary artery without angina pectoris; M54.9 Dorsalgia, unspecified; Z11.52 Encounter for screening for COVID-19; Z87.440 Personal history of urinary (tract) infections; Z88.8 Allergy status to other drugs, medicaments and biological substances; Z85.118 Personal history of other malignant neoplasm of bronchus and lung
CPT/HCPCS: 93005; 87040 ×2; 85025; 81001; 36415; 85610; 83605; 85730; 80053; 70450; 71260; 74177; 71045; 96360; 99285; 87428; Q9967; J7030